=== PATIENT | female | born 1970 | race Caucasian/White ===

== ENCOUNTER 2020-10-02 10:32 | Emergency (ER) | payer MEDICARE, SELFPAY ==
--- NOTE | ~2020-10-02 | XR_ITS ---
EXAMINATION: XR CHEST CLINICAL INFORMATION: Left arm weakness, body tingling since 6:00 AM. COMPARISON: None TECHNIQUE: Portable upright AP x2 views of the chest was obtained. FINDINGS: There are low lung volumes. The lungs are clear. The vascularity is normal. There is no airspace consolidation or groundglass opacity or effusion. The costophrenic sulci are clear. The heart is normal in size. The hilar and mediastinal contours are normal. There is mild dextrocurvature thoracic spine. XR/XR chest 1V IMPRESSION: Low lung volumes. Lungs clear.
--- NOTE | ~2020-10-02 | CT_ITS ---
EXAMINATION: CT ABDOMEN AND PELVIS WITH CONTRAST CLINICAL INFORMATION: Right lower quadrant abdominal pain COMPARISON: None TECHNIQUE: Multidetector volumetric images were obtained from the superior aspect of the liver through the pubic symphysis following administration 85 mL of Omnipaque 350 intravenous contrast. Sagittal and coronal reformatted images were obtained on the technologist's workstation. Oral contrast: No This CT examination was performed using dose optimization techniques as appropriate, variously including the following: *Automated exposure control *Adjustment of mA and/or kV according to patient size (this includes techniques or standardized protocols for targeted exams where dose is matched to indication/reason for exam; i.e. extremities or head) *Use of iterative reconstruction technique DLP: 1256 mGy-cm FINDINGS: LUNG BASES: The visualized lung bases are unremarkable. LIVER, GALLBLADDER, AND BILIARY TREE: The liver is normal in size, shape, and attenuation. No focal hepatic lesion or biliary ductal dilatation is present. Postsurgical changes related to cholecystectomy. PANCREAS: Unremarkable. SPLEEN: Unremarkable. ADRENAL GLANDS: Unremarkable. KIDNEYS AND URETERS: The kidneys are normal in size, shape, and attenuation. No hydronephrosis, hydroureter, or calculi seen. No perinephric stranding. BLADDER: Unremarkable. GASTROINTESTINAL TRACT: The small and large bowel are unremarkable. The appendix is unremarkable. ABDOMINAL WALL: Tiny midline abdominal wall hernia just distal to the umbilicus the hernia sac measuring up to 6 mm contains fat with minimal if any fluid. LYMPH NODES: Normal. VASCULAR: There is mild arterial calcification of the abdominal aorta PELVIC VISCERA: Unremarkable. OSSEOUS STRUCTURES: Degenerative disc change present at the L5-S1 level manifested by vacuum disc phenomena CT/CT abdomen pelvis w con IMPRESSION: No acute abnormality. Appendix normal Cholecystectomy. Tiny midline abdominal wall hernia. Mild calcific atherosclerotic disease.
--- NOTE | ~2020-10-02 | CT_ITS ---
EXAMINATION: CT HEAD WITHOUT CONTRAST CLINICAL INFORMATION: Left arm weakness body tingling. COMPARISON: None TECHNIQUE: Contiguous axial imaging was performed from the skull base to vertex without intravenous administration of contrast. This CT examination was performed using dose optimization techniques as appropriate, variously including the following: *Automated exposure control *Adjustment of mA and/or kV according to patient size (this includes techniques or standardized protocols for targeted exams where dose is matched to indication/reason for exam; i.e. extremities or head) *Use of iterative reconstruction technique DLP: 835 mGy-cm FINDINGS: There is no evidence of acute intracranial hemorrhage or territorial infarction. No abnormal mass effect or midline shift is seen. Saenz to white matter differentiation is well preserved. No extra-axial fluid collections are identified. The ventricles are normal in size. There is no abnormal attenuation within the brain parenchyma. The osseous structures and soft tissues are normal. The mastoid air cells and visualized portions of the paranasal sinuses are well aerated. CT/CT head/brain wo con IMPRESSION: No acute intracranial pathology.
--- NOTE | ~2020-10-02 | CT_ITS ---
EXAMINATION: CT angio head neck CLINICAL INFORMATION: Left upper extremity weakness. COMPARISON: CT scan of the head 10/02/2020. TECHNIQUE: Qa Consultant images were obtained. A CT angiogram of the head and neck was performed in the arterial phase after the intravenous administration of 100 mL Omnipaque 350. Delayed postcontrast images of the head were also obtained. MIP reconstructions were generated in multiple orientations at the acquisition workstation. Multiple three-dimensional surface rendered images and maximum intensity projection images were generated on a dedicated 3-D lab workstation. Arterial stenoses are measured in accordance with NASCET criteria or similar method if applicable. This CT examination was performed using dose optimization techniques as appropriate, including one or more of the following: Automated exposure control, iterative reconstruction, and adjustment of technique factors (mA and/or kVp) according to patient size (this includes techniques or standardized protocols for targeted exams where dose is matched to indication/reason for exam). Total exam dose-length product 3532 mGy-cm FINDINGS: Head: Postcontrast images reveal no abnormal mass or enhancement within the intracranial compartment. No intracranial mass effect or midline shift. Lateral and third ventricles are normal. No hydrocephalus. Saenz-white matter differentiation is preserved and there is no evidence of acute territorial infarct. The calvarium and skull base are intact. Mastoid air cells and middle ear cavities are well aerated. No active paranasal sinus disease. Globes and orbits are symmetric. CT angiogram neck: The aortic arch apex is normal. Origins of the major aortic branches are widely patent. Common carotid arteries and carotid bifurcations are normal. No stenosis of the extracranial internal carotid arteries. The cervical segments of the vertebral arteries as well as their origins are patent. CT angiogram head: There is a small vascular fenestration of the right intradural vertebral artery at the origin of the right posterior inferior cerebellar artery. The intradural vertebral artery segments and basilar artery are otherwise normal. The intracranial internal carotid arteries are widely patent. Anterior, middle, and posterior cerebral artery complexes are normal. No intracranial large vessel occlusion. Other: Soft tissues of the neck including the thyroid gland are normal. Visualized lung apices are clear. CT/CT angio head neck IMPRESSION: Unremarkable CT angiogram of the head and neck.
[2020-10-02 10:41] VITALS: BP 121/78; PULSE 73; RESP 17; TEMP 37.2; O2SAT 100
[2020-10-02 10:54] VITALS: BP 124/78; PULSE 72; RESP 18; TEMP 36.6; O2SAT 96; BMI 52.2
--- NOTE | 2020-10-02 11:06 | ECG_ITS ---
Test Reason : GENERAL MEDICINE Blood Pressure : / mmHG Vent. Rate : 073 BPM Atrial Rate : 073 BPM P-R Int : 170 ms QRS Dur : 082 ms QT Int : 414 ms P-R-T Axes : 026 -04 024 degrees QTc Int : 456 ms Normal sinus rhythm Minimal voltage criteria for LVH, may be normal variant Inferior infarct , age undetermined Abnormal ECG No previous ECGs available Referred By: Sammie Finney Electronically Signed By:MARYELLEN WHEATLEY
--- NOTE | 2020-10-02 11:57 | ED_ITS ---
HPI - Neuro Symptoms/Deficit General Chief Complaint: General Medical Stated Complaint: RIGHT SIDED TINGLING Time Seen by Provider: 10/02/20 10:41 Source: patient and EMS Mode of arrival: EMS Limitations: other ( poor historian) History of Present Illness HPI Narrative: 49-year-old female with a past medical history of migraine headaches, transverse myelitis, anxiety, depression, PTSD, personality disorder, celiac disease and left-sided weakness presenting to the ED with complaints of sudden onset of left upper extremity weakness with entire body tingling that started at approximately 06:00 when she woke up. She reports that her left leg weakness has improved since 06:00 this morning although now she has left upper extremity weakness that is new. She is also complaining of right lower quadrant abdominal pain for the past 2 days. Patient denies any fevers, head injury, falls, dizziness, headaches, change in vision, neck pain/stiffness, nausea /vomiting, jaw pain, chest pain, cough,shortness of breath, dyspnea exertion, orthopnea, palpitations, abdominal pain, back pain, lower extremity edema or weakness, calf tenderness, dysuria, hematuria, diarrhea, constipation, black or bloody stools or any other symptoms complaints or concerns at this time. She denies being on any blood thinners. Onset (ago): hour(s) ( 5 hours prior to arrival at 06:00) Location: left arm History of same: No Severity: moderate Quality: weak, tingling and constant Relieving factors: none Exacerbating factors: none Context: sudden onset On Anticoagulants: No Associated symptoms: other ( tingling to the entire body) Treatments Prior to Arrival: none Related Data Previous Rx's Medication Instructions Recorded acetaminophen [Tylenol Extra 1,000 mg PO QID PRN #14 tab 10/02/20 Strength] ferrous sulfate 325 mg PO DAILY #30 tab 10/02/20 ibuprofen 400 mg PO Q6H PRN #14 tab 10/02/20 Allergies Allergy/AdvReac Type Severity Reaction Status Date / Time cephalexin [From Keflex] Allergy Rash Verified 10/02/20 10:54 droperidol Allergy Anaphylaxis Verified 10/02/20 10:54 ketorolac [From Toradol] Allergy Itching Verified 10/02/20 10:54 Penicillins Allergy Rash Verified 10/02/20 10:54 Sulfa (Sulfonamide Allergy Rash Verified 10/02/20 10:54 Antibiotics) Review of Systems Review of Systems: Constitutional : No Fever, No Chills, No Night Sweats, No Fatigue, No Malaise ENT/Mouth : No Ear Pain, No Nasal Congestion, No Sinus Pain, No sore throat, No Rhinorrhea Eyes: No Eye Pain, No Swelling, No Redness, No Foreign Body, No Discharge, No Vision Changes Cardiovascular : No Chest Pain, No SOB, No Dyspnea on Exertion, No Orthopnea, No Palpitations Respiratory : No Cough, No Sputum, No Wheezing, No Dyspnea Gastrointestinal : positive right lower quadrant abdominal pain, No Nausea, No Vomiting, No Diarrhea, No Constipation, No Hematochezia, No Melena Genitourinary : No Dysuria, No Urinary Frequency, No Urinary Incontinence, No Urgency, No Flank Pain Musculoskeletal : No joint pain, No Myalgias Skin : No lacerations Neuro : positive left upper arm Focal weakness, tingling to the entire body, No Numbness, No Loss of Consciousness, No Dizziness, No Headache Yes all other systems are reviewed and are negative [facility] Past Medical History Attestation statement: The following information was validated with the patient. Medical History Celiac disease Colitis Left-sided weakness Surgical History History of cholecystectomy Social History Social History Alcohol intake: never Patient Tobacco Use Status: Never used Tobacco Use of substances other than those prescribed or required for medical reasons: No Advance Directives: Yes Advance Directives Information Provided: Yes Advance Directives on File: No Patient : No Physical Exam Vital Signs: Vital Signs: Last Vital Signs Temp 97.8 F 10/02/20 15:43 Pulse 73 10/02/20 15:43 Resp 17 10/02/20 15:43 BP 127/75 10/02/20 15:43 Pulse Ox 96 10/02/20 15:43 Body Mass Index 52.2 Vital signs have been reviewed as normal and appeared to be correct. Blood pressure normal. Heart rate normal. Respiration rate normal. Temperature normal. Oxygen saturation normal. Appearance: Alert. Oriented X3. No acute distress. Head: Normal external exam. Normocephalic. Atraumatic. Able to rotate head bilaterally. Eyes: PERRLA. EOMI. No nystagmus noted. Conjunctiva and sclera normal. Eyelids normal. Corneal reflex normal. ENT: EAC normal. TM's Normal. Hearing normal. Pharynx normal. Uvula midline. tongue midline. Moist mucous membranes. No trismus noted. No drooling noted. No muffled voice noted. No nystagmus noted. Neck: Normal inspection. Neck supple. FROM. No adenopathy. Trachea midline. Thyroid Normal. No meningeal signs. No neck mass noted. CVS: Normal heart rate and rhythm. Heart sound normal. No murmurs noted. Pulses normal throughout. Respiratory: No respiratory distress. Painless inspiration. Breath sounds normal. No wheezes/rales/rhonchi noted. Chest nontender. No accessory muscle usage noted or decreased air movement noted. Abdomen: Soft and mild tenderness to palpation to right lower quadrant. Bowel sounds normal in all 4 quadrants. No distention noted. No organomegaly noted. No visible injury noted. Back: No CVA tenderness. Full range of motion noted. Skin: Skin warm and dry. Normal skin color. Normal skin turgor. No rashes/lesions/lacerations noted. Extremities: No lower extremity edema. Extremities exhibit normal range of motion. Extremities nontender. Able to shrug shoulders bilaterally and keep up against resistance. Neuro: Oriented X 3. when myself and the nurse speak to the patient she is moving her left upper extremity without any difficulties although when I test the patient's strength she reports she has no strength in her left upper extremity. Although hand drop overhead . face multiple times. Therefore no actual motor deficit. No sensory deficit. Reflexes normal. Moving all extremities. No focal motor deficits. Cranial nerves II-XI intact bilaterally. Facial strength normal. Normal cognition. Speech normal. Gait normal And patient uses her left arm to get up from the bed by herself. Strength 5/5 throughout. No pronator drift. No tremor noted. No fasciculations noted. No rigi dity noted. Muscle tone normal throughout. No asterixis noted. [id number] test normal. Heel to ballard test normal. Tandem gait normal. Does not sway with eyes open. Romberg test negative. Rapid alternating movement upper extremity normal. Rapid alternating movement lower extremity normal. Hand drop from overhead Misses face. NIHSS score 0. Course Course Course Narrative: 11:10am - 49-year-old female with a past medical history of migraine headaches, transverse myelitis, anxiety, depression, PTSD, personality disorder, celiac disease and left-sided weakness presenting to the ED with complaints of sudden onset of left upper extremity weakness with entire body tingling that started at approximately 06:00 when she woke up. She reports that her left leg weakness has improved since 06:00 this morning although now she has left upper extremity weakness that is new. She is also complaining of right lower quadrant abdominal pain for the past 2 days. - per EMS patient was able to get up and onto the stretcher moving all extremities with a normal steady gait no focal neural deficits were noted. On my exam patient is alert and oriented x3. Not in any acute distress. During my exam she was not moving her left upper extremity although when I place her hand over her face she misses her face multiple times. She was also able to use her left arm to get up from the bed to ambulate and she had a normal steady gait. She also moves her left upper extremity when I am speaking to her although she will not move it when I do my neuro exam to test for strength. Otherwise she is moving all other extremities. She has a normal steady gait. Due to her being a poor historian and her exam being inconsistent she is not a tPA candidate as she has non disabling symptoms and her symptoms started 4 hours prior to arrival. Plan: Labs, CT scan of brain, CT angio of head and neck, CT scan of abdomen and pelvis with IV contrast, UA, chest x-ray, EKG and re-evaluate. Reevaluation(s) Reevaluation #1: - patient with mild anemia I asked her if she could possibly be bleeding rectally and she declined this then I asked if I could do a digital exam for stool stool Occult Patient refused. Otherwise all other labs were within normal limits. UA within normal limits no evidence of UTI. Patient negative for all drugs. ETOH level negative. COVID swab negative. CT scan of brain without contrast negative for any acute processes. CTA of head and neck negative for any acute processes. CT scan abdomen pelvis with IV contrast negative for any acute processes. - Patient is moving all extremities and is ambulating without any assistance. Will DC home with instructions return if any new or worsening symptoms to follow up with primary care provider. Time: 16:34 MDM - Neuro Symptoms/Deficit Medical Records Attestation: I reviewed the patient's medical records. Lab Data Attestation: I reviewed the patient's lab results. Result diagrams: 10/02/20 13:01 10/02/20 13:01 Labs: Lab Results 10/02/20 10/02/20 10/02/20 Range/Units 12:50 12:50 12:50 WBC (4.8-10.8) X10*3/uL RBC (4.20-5.50) X10*6/uL Hgb (12.0-16.0) g/dl Hct (37-47) % MCV (80-98) fL MCH (27.0-33.0) pg MCHC (31.0-35.0) g/dl RDW (11.0-16.0) % Plt Count (160-400) X10*3/uL MPV (9.4-12.3) fL Immature Gran % (Auto) (0.0-0.4) % Neut % (Auto) (45-73) % Lymph % (Auto) (20-40) % [place] % (Auto) (2-11) % Eos % (Auto) (0-4) % Baso % (Auto) (0-2) % Lymph # (Auto) (1.2-4.9) X10*3/uL [place] # (Auto) (0.1-1.2) X10*3/uL Eos # (Auto) (0.0-0.4) X10*3/uL Baso # (Auto) (0.0-0.2) X10*3/uL Abs Immat Gran (auto) (0.00-0.03) X10*3/uL Absolute Neuts (auto) (2.0-8.3) X10*3/uL Absolute Nucleated RBC (0.0-0.012) X10*3/uL Nucleated RBC % (auto) (0.0-0.2) /100WBC PT (9.9-13.0) SEC INR (0.9-1.1) APTT (24.1-38.0) SEC Sodium (135-145) mmol/L Potassium (3.3-5.1) mmol/L Chloride (96-108) mmol/L Carbon Dioxide (22-29) mmol/L Anion Gap (12-20) BUN (9-16) mg/dL Creatinine (0.5-1.4) mg/dL Estim Creat Clear Calc Estimated GFR Random Glucose (60-115) mg/dL Calcium (8.4-10.2) mg/dL Magnesium (1.6-2.6) mg/dL Total Bilirubin (0.0-1.0) mg/dL AST (5-31) U/L ALT (0-31) U/L Alkaline Phosphatase (39-117) U/L Troponin I High Sens (<3.5-17.0) ng/L B-Natriuretic Peptide (<100) pg/mL Total Protein (6.5-8.0) g/dL Albumin (3.5-5.0) g/dL Urine Color YELLOW Urine Appearance CLEAR Urine pH 6.0 (5.0-8.0) Ur Specific [place] <= 1.005 (1.005-1.025) Urine Protein NEG (NEG-TRACE) MG/DL Urine Glucose (UA) NEG (NEG) MG/DL Urine Ketones NEG (NEG) MG/DL Urine Blood NEG (NEG) Urine Nitrite NEG (NEG) Ur Leukocyte Esterase NEG (NEG) Urine Opiates Screen Not Detected (Not Detect) Ur Barbiturates Screen Not Detected (Not Detect) Ur Phencyclidine Scrn Not Detected (Not Detect) Ur Amphetamines Screen Not Detected (Not Detect) U Benzodiazepines Scrn Not Detected (Not Detect) Urine Cocaine Screen Not Detected (Not Detect) U Marijuana (THC) Screen Not Detected (Not Detect) Ethyl Alcohol mg/dL COVID-19 (CELINA) Negative (Negative) COVID-19 Clin Com See Note 10/02/20 10/02/20 10/02/20 Range/Units 13:01 13:01 13:01 WBC 5.9 (4.8-10.8) X10*3/uL RBC 3.55 L (4.20-5.50) X10*6/uL Hgb 10.4 L (12.0-16.0) g/dl Hct 36.0 L (37-47) % MCV 101.4 H (80-98) fL MCH 29.3 (27.0-33.0) pg MCHC 28.9 L (31.0-35.0) g/dl RDW 13.9 (11.0-16.0) % Plt Count 286 (160-400) X10*3/uL MPV 10.0 (9.4-12.3) fL Immature Gran % (Auto) 0.8 H (0.0-0.4) % Neut % (Auto) 60.6 (45-73) % Lymph % (Auto) 27.2 (20-40) % [place] % (Auto) 6.9 (2-11) % Eos % (Auto) 3.7 (0-4) % Baso % (Auto) 0.8 (0-2) % Lymph # (Auto) 1.6 (1.2-4.9) X10*3/uL [place] # (Auto) 0.4 (0.1-1.2) X10*3/uL Eos # (Auto) 0.2 (0.0-0.4) X10*3/uL Baso # (Auto) 0.1 (0.0-0.2) X10*3/uL Abs Immat Gran (auto) 0.05 H (0.00-0.03) X10*3/uL Absolute Neuts (auto) 3.6 (2.0-8.3) X10*3/uL Absolute Nucleated RBC 0.000 (0.0-0.012) X10*3/uL Nucleated RBC % (auto) 0.0 (0.0-0.2) /100WBC PT 11.7 (9.9-13.0) SEC INR 1.0 (0.9-1.1) APTT 39.0 H (24.1-38.0) SEC Sodium 141 (135-145) mmol/L Potassium 3.9 (3.3-5.1) mmol/L Chloride 110 H (96-108) mmol/L Carbon Dioxide 23 (22-29) mmol/L Anion Gap 12 (12-20) BUN 15 (9-16) mg/dL Creatinine 1.14 (0.5-1.4) mg/dL Estim Creat Clear Calc 60.9 Estimated GFR 51 Random Glucose 101 (60-115) mg/dL Calcium 8.9 (8.4-10.2) mg/dL Magnesium 2.3 (1.6-2.6) mg/dL Total Bilirubin 0.4 (0.0-1.0) mg/dL AST 16 (5-31) U/L ALT 15 (0-31) U/L Alkaline Phosphatase 84 (39-117) U/L Troponin I High Sens (<3.5-17.0) ng/L B-Natriuretic Peptide (<100) pg/mL Total Protein 6.7 (6.5-8.0) g/dL Albumin 4.0 (3.5-5.0) g/dL Urine Color Urine Appearance Urine pH (5.0-8.0) Ur Specific [place] (1.005-1.025) Urine Protein (NEG-TRACE) MG/DL Urine Glucose (UA) (NEG) MG/DL Urine Ketones (NEG) MG/DL Urine Blood (NEG) Urine Nitrite (NEG) Ur Leukocyte Esterase (NEG) Urine Opiates Screen (Not Detect) Ur Barbiturates Screen (Not Detect) Ur Phencyclidine Scrn (Not Detect) Ur Amphetamines Screen (Not Detect) U Benzodiazepines Scrn (Not Detect) Urine Cocaine Screen (Not Detect) U Marijuana (THC) Screen (Not Detect) Ethyl Alcohol mg/dL COVID-19 (CELINA) (Negative) COVID-19 Clin Com 10/02/20 10/02/20 10/02/20 Range/Units 13:01 13:01 13:01 WBC (4.8-10.8) X10*3/uL RBC (4.20-5.50) X10*6/uL Hgb (12.0-16.0) g/dl Hct (37-47) % MCV (80-98) fL MCH (27.0-33.0) pg MCHC (31.0-35.0) g/dl RDW (11.0-16.0) % Plt Count (160-400) X10*3/uL MPV (9.4-12.3) fL Immature Gran % (Auto) (0.0-0.4) % Neut % (Auto) (45-73) % Lymph % (Auto) (20-40) % [place] % (Auto) (2-11) % Eos % (Auto) (0-4) % Baso % (Auto) (0-2) % Lymph # (Auto) (1.2-4.9) X10*3/uL [place] # (Auto) (0.1-1.2) X10*3/uL Eos # (Auto) (0.0-0.4) X10*3/uL Baso # (Auto) (0.0-0.2) X10*3/uL Abs Immat Gran (auto) (0.00-0.03) X10*3/uL Absolute Neuts (auto) (2.0-8.3) X10*3/uL Absolute Nucleated RBC (0.0-0.012) X10*3/uL Nucleated RBC % (auto) (0.0-0.2) /100WBC PT (9.9-13.0) SEC INR (0.9-1.1) APTT (24.1-38.0) SEC Sodium (135-145) mmol/L Potassium (3.3-5.1) mmol/L Chloride (96-108) mmol/L Carbon Dioxide (22-29) mmol/L Anion Gap (12-20) BUN (9-16) mg/dL Creatinine (0.5-1.4) mg/dL Estim Creat Clear Calc Estimated GFR Random Glucose (60-115) mg/dL Calcium (8.4-10.2) mg/dL Magnesium (1.6-2.6) mg/dL Total Bilirubin (0.0-1.0) mg/dL AST (5-31) U/L ALT (0-31) U/L Alkaline Phosphatase (39-117) U/L Troponin I High Sens < 3.5 (<3.5-17.0) ng/L B-Natriuretic Peptide 55 (<100) pg/mL Total Protein (6.5-8.0) g/dL Albumin (3.5-5.0) g/dL Urine Color Urine Appearance Urine pH (5.0-8.0) Ur Specific [place] (1.005-1.025) Urine Protein (NEG-TRACE) MG/DL Urine Glucose (UA) (NEG) MG/DL Urine Ketones (NEG) MG/DL Urine Blood (NEG) Urine Nitrite (NEG) Ur Leukocyte Esterase (NEG) Urine Opiates Screen (Not Detect) Ur Barbiturates Screen (Not Detect) Ur Phencyclidine Scrn (Not Detect) Ur Amphetamines Screen (Not Detect) U Benzodiazepines Scrn (Not Detect) Urine Cocaine Screen (Not Detect) U Marijuana (THC) Screen (Not Detect) Ethyl Alcohol < 10 mg/dL COVID-19 (CELINA) (Negative) COVID-19 Clin Com Imaging Data Chest x-ray: Attestation: I personally reviewed and interpreted this imaging study as follows: CT scan of head /CT angio head and neck / CT scan abdomen pelvis IV contrast: Attestation: I personally reviewed and interpreted this imaging study as follows: Radiologist's impression: FINDINGS: Head: Postcontrast images reveal no abnormal mass or enhancement within the intracranial compartment. No intracranial mass effect or midline shift. Lateral and third ventricles are normal. No hydrocephalus. Saenz-white matter differentiation is preserved and there is no evidence of acute territorial infarct. The calvarium and skull base are intact. Mastoid air cells and middle ear cavities are well aerated. No active paranasal sinus disease. Globes and orbits are symmetric. CT angiogram neck: The aortic arch apex is normal. Origins of the major aortic branches are widely patent. Common carotid arteries and carotid bifurcations are normal. No stenosis of the extracranial internal carotid arteries. The cervical segments of the vertebral arteries as well as their origins are patent. CT angiogram head: There is a small vascular fenestration of the right intradural vertebral artery at the origin of the right posterior inferior cerebellar artery. The intradural vertebral artery segments and basilar artery are otherwise normal. The intracranial internal carotid arteries are widely patent. Anterior, middle, and posterior cerebral artery complexes are normal. No intracranial large vessel occlusion. Other: Soft tissues of the neck including the thyroid gland are normal. Visualized lung apices are clear. CT/CT angio head neck IMPRESSION: Unremarkable CT angiogram of the head and neck. FINDINGS: LUNG BASES: The visualized lung bases are unremarkable. LIVER, GALLBLADDER, AND BILIARY TREE: The liver is normal in size, shape, and attenuation. No focal hepatic lesion or biliary ductal dilatation is present. Postsurgical changes related to cholecystectomy. PANCREAS: Unremarkable. SPLEEN: Unremarkable. ADRENAL GLANDS: Unremarkable. KIDNEYS AND URETERS: The kidneys are normal in size, shape, and attenuation. No hydronephrosis, hydroureter, or calculi seen. No perinephric stranding. BLADDER: Unremarkable. GASTROINTESTINAL TRACT: The small and large bowel are unremarkable. The appendix is unremarkable. ABDOMINAL WALL: Tiny midline abdominal wall hernia just distal to the umbilicus the hernia sac measuring up to 6 mm contains fat with minimal if any fluid. LYMPH NODES: Normal. VASCULAR: There is mild arterial calcification of the abdominal aorta PELVIC VISCERA: Unremarkable. OSSEOUS STRUCTURES: Degenerative disc change present at the L5-S1 level manifested by vacuum disc phenomena CT/CT abdomen pelvis w con IMPRESSION: No acute abnormality. Appendix normal Cholecystectomy. Tiny midline abdominal wall hernia. Mild calcific atherosclerotic disease. ECG Data Attestation: I personally reviewed and interpreted this ECG as follows: NIH Stroke Scale Internal: Initial- Upon Arrival Time: 11:10 Level of Consciousness: Alert Level of Consciousness Questions: Answers both questions correctly Level of Consciousness Commands: Performs both tasks correctly Best Gaze: Normal Visual: No visual loss Facial Palsy: Normal Motor Arm (Right): No drift Motor Arm (Left): No drift Motor Leg (Right): No drift Motor Leg (Left): No drift Limb Ataxia: Absent Sensory: Normal Best Language: No aphasia Dysarthia: Normal Extinction and Inattention: No abnormality Score: 0 Critical Care Time Critical Care Time Critical Care Time: Yes Total Critical Care Time: 60 Attestation: I personally attest to this time spent taking care of the patient Discharge Plan Discharge Clinical Impression: Abdominal pain, Migraine headache, Anemia Patient Disposition: Home, Self-Care Instructions: Migraine Headache (ED), Abdominal Pain (ED), Anemia (ED) Prescriptions: New acetaminophen [Tylenol Extra Strength] 500 mg tablet 1,000 mg PO QID PRN (Reason: fever or pain) Qty: 14 RF: 0 ibuprofen 400 mg tablet 400 mg PO Q6H PRN (Reason: pain) Qty: 14 RF: 0 ferrous sulfate 325 mg (65 mg iron) tablet 325 mg PO DAILY Qty: 30 RF: 0 Referrals: Physician,Unknown [Primary Care Provider] - 2 days (your pcp) Print Language: Turkmen
[2020-10-02 13:03] LABS: Glucose Urine UA NEG (NEG); Leukocyte Esterase Urine NEG (NEG); Nitrite Urine NEG (NEG); Specific Gravity - Urine <= 1.005 (1.005-1.025); Urine Blood NEG (NEG); Urine Ketones NEG (NEG); Urine Protein NEG (NEG-TRACE)
[2020-10-02 13:06] LABS: Appearance Urine CLEAR; Color Urine YELLOW
[2020-10-02 13:15] LABS: COVID-19 Test Negative (Negative); IDNOW Serial# 9DD0AD1C
--- NOTE | 2020-10-02 13:17 | PC.NURSE ---
iv and labs obtained via ultrasound guide
[2020-10-02 13:18] LABS: MANUAL DIFF FLAG NO
--- NOTE | 2020-10-02 13:18 | PC.NURSE ---
pt to have xray
[2020-10-02 13:21] LABS: Basophils Absolute Auto 0.1 X10*3/uL (0.0-0.2); Basophils Percent Auto 0.8 % (0-2); Eosinophils Absolute Auto 0.2 X10*3/uL (0.0-0.4); Eosinophils Percent Auto 3.7 % (0-4); Hemoglobin 10.4 g/dl (12.0-16.0); Imm Gran Abs Auto 0.05 X10*3/uL (0.00-0.03); Imm Gran Pct Auto 0.8 % (0.0-0.4); Lymphocytes Absolute Auto 1.6 X10*3/uL (1.2-4.9); Lymphocytes Percent Auto 27.2 % (20-40); Mean Corpuscular HGB Conc 28.9 g/dl (31.0-35.0); Mean Corpuscular Hemoglobin 29.3 pg (27.0-33.0); Mean Corpuscular Volume 101.4 fL (80-98); Monocytes Absolute Auto 0.4 X10*3/uL (0.1-1.2); Monocytes Percent Auto 6.9 % (2-11); Neutrophils Absolute Auto 3.6 X10*3/uL (2.0-8.3); Neutrophils Percent Auto 60.6 % (45-73); Platelet Count 286 X10*3/uL (160-400); Red Blood Count 3.55 X10*6/uL (4.20-5.50); Red Cell Distribution Width 13.9 % (11.0-16.0); White Blood Count 5.9 X10*3/uL (4.8-10.8)
--- NOTE | 2020-10-02 13:25 | PC.NURSE ---
patient a&ox3, since patients arrival patient had c/o inability to move left arm, however while speaking with this nurse and the provider the patient would move arm without assistance, patient also stated that she has facial droop although when performing neuro exam no facial droop was noted, pt passed swallow eval. pt now has iv access that was obtained via us guided- and will have a ct scan as a precaution, will continue to monitor.
[2020-10-02 13:27] LABS: Prothrombin Time 11.7 SEC (9.9-13.0)
[2020-10-02 13:29] LABS: Amphetamine Screen Urine Not Detected (Not Detect); Barbiturates, Urine Not Detected (Not Detect); Benzodiazepines Screen Urine Not Detected (Not Detect); Cannabinoid Screen Urine Not Detected (Not Detect); Cocaine Screen Urine Not Detected (Not Detect); Opiate Screen Urine Not Detected (Not Detect)
[2020-10-02 13:36] LABS: Phencyclidine Screen Urine Not Detected (Not Detect)
[2020-10-02 13:42] LABS: Ethanol < 10 mg/dL
[2020-10-02 13:46] LABS: Alanine Aminotransferase 15 U/L (0-31); Alkaline Phosphatase 84 U/L (39-117); Anion Gap 12 (12-20); Aspartate Amino Transferase 16 U/L (5-31); Bilirubin Total 0.4 mg/dL (0.0-1.0); Blood Urea Nitrogen 15 mg/dL (9-16); Calcium 8.9 mg/dL (8.4-10.2); Carbon Dioxide 23 mmol/L (22-29); Chloride 110 mmol/L (96-108); Creatinine Clr Calc Pharmacy 60.9; Estimated Glomerular Filt Rate 51; Glucose Random 101 mg/dL (60-115); Magnesium 2.3 mg/dL (1.6-2.6); Potassium 3.9 mmol/L (3.3-5.1); Sodium 141 mmol/L (135-145); Total Protein 6.7 g/dL (6.5-8.0)
[2020-10-02 13:47] LABS: B Type Natriuretic Peptide 55 pg/mL (<100); Troponin-I High Sensitivity < 3.5 ng/L (<3.5-17.0)
[2020-10-02 13:49] VITALS: BP 123/71; PULSE 73; RESP 18; TEMP 36.7; O2SAT 95
--- NOTE | 2020-10-02 13:51 | PC.NURSE ---
pt c/o rlq abd pain 01/06, immediately after c/o pain patient requesting something to eat and drink, will notify provider and see if she can have po at this time.
[2020-10-02 15:43] VITALS: BP 127/75; PULSE 73; RESP 17; TEMP 36.6; O2SAT 96
--- NOTE | 2020-10-02 15:44 | PC.NURSE ---
patient sleeping, wakes to verbal stimulus, vss, rn cardiac nsr 70s, c/o rt abd pain, will continue to monitor.
[2020-10-02] MEDS: iohexoL 350 MG/ML 100 ML INFUS..BTL IV (15:57)
[2020-10-02] MEDS: Acetaminophen 325 MG TABLET 650 MG PO (16:49)
== END 2020-10-02 16:53 | disposition home or self-care (01) ==
PROVIDERS: Physician Assistant Medical; Emergency Provider Emergency Medicine
DX: R10.31 Right lower quadrant pain (principal); G43.909 Migraine, unspecified, not intractable, without status migrainosus; D64.9 Anemia, unspecified; R53.1 Weakness; R20.2 Paresthesia of skin; Z20.822 Contact with and (suspected) exposure to COVID-19
CPT/HCPCS: 36415; 70450; 70496; 70498; 71045; 74177; 80053; 80307; 81003; 82077; 83735; 83880; 84484; 85025; 85610; 85730; 87635; 93005; 99284; 99291; Q9967

== ENCOUNTER 2021-09-29 17:35 | Emergency (ER) | payer MEDICARE, SELFPAY | END 2021-09-29 18:30 | disposition left against medical advice (07) | PROVIDERS: Emergency Provider Emergency Medicine; PCP Internal Medicine | DX: G43.909 Migraine, unspecified, not intractable, without status migrainosus (principal) ==

== ENCOUNTER 2021-10-02 17:37 | Emergency (ER) | payer MEDICARE, SELFPAY ==
--- NOTE | ~2021-10-02 | XR_ITS ---
EXAMINATION: XR CHEST CLINICAL INFORMATION: Dyspnea COMPARISON: Chest x-ray 10/02/2020 TECHNIQUE: Frontal view of the chest was obtained. FINDINGS: Cardiac silhouette is normal in size. The lungs are mildly hypoinflated. There is asymmetric elevation of right hemidiaphragm. There is no lobar consolidation. No pleural effusion or pneumothorax. XR/XR chest 1V IMPRESSION: Hypoinflated lungs without acute pulmonary pathology.
[2021-10-02 17:44] VITALS: BP 135/80; PULSE 107; RESP 28; TEMP 36.7; O2SAT 97; BMI 45.3
[2021-10-02 18:53] VITALS: BP 139/95; PULSE 101; RESP 50; O2SAT 96
--- NOTE | 2021-10-02 19:59 | ECG_ITS ---
Test Reason : DYSPENA Blood Pressure : / mmHG Vent. Rate : 085 BPM Atrial Rate : 085 BPM P-R Int : 154 ms QRS Dur : 078 ms QT Int : 386 ms P-R-T Axes : 026 000 033 degrees QTc Int : 459 ms Normal sinus rhythm Minimal voltage criteria for LVH, may be normal variant ( R in aVL ) Inferior infarct (cited on or before 02-OCT-2020) Abnormal ECG When compared with ECG of 02-OCT-2020 12:53, No significant change was found Referred By: Lorraine Bob Electronically Signed By:Elpidio So
--- NOTE | 2021-10-02 20:01 | ED_ITS ---
HPI - SOB/Dyspnea General Chief Complaint: Dyspnea Stated Complaint: short of breath, migraine for a month Source: patient Mode of arrival: ambulatory Limitations: no limitations History of Present Illness HPI Narrative: 50-year-old female presents with shortness of breath for 5 days and a intractable migraine for approximately a month. Patient does have a history of asthma and COPD, she stated that she used for nebulizers today with poor effect. She is speaking in short phrases, and is tachypneic at 28 breaths per minute. MD elicited complaint: shortness of breath Pertinent past history: COPD and asthma Onset (ago): day(s) (5 shortness breath) Timing: constant Severity: moderate Exacerbating factors: exertion, coughing and talking Relieving factors: nothing Known history of: COPD and asthma Treatment prior to arrival: bronchodilator Related Data Previous Rx's Medication Instructions Recorded acetaminophen 500 mg tablet 1,000 mg PO QID PRN fever or pain 10/02/20 (Tylenol Extra Strength) #14 tabs ferrous sulfate 325 mg (65 mg 325 mg PO DAILY Iron deficiency 10/02/20 iron) tablet anemia #30 tabs ibuprofen 400 mg tablet 400 mg PO Q6H PRN pain #14 tabs 10/02/20 Allergies Allergy/AdvReac Type Severity Reaction Status Date / Time cephalexin [From Keflex] Allergy Rash Verified 10/02/21 17:43 droperidol Allergy Anaphylaxis Verified 10/02/21 17:43 ketorolac [From Toradol] Allergy Itching Verified 09/29/21 18:28 Penicillins Allergy Rash Verified 10/02/21 17:43 Sulfa (Sulfonamide Allergy Rash Verified 10/02/21 17:43 Antibiotics) Review of Systems Review of Systems: Constitutional: No Fever, No Chills ENT/Mouth: No Ear Pain, No Hoarseness, No sore throat Eyes: No Eye Pain, No Swelling, No Redness, No Foreign Body Cardiovascular: No Chest Pain, positive SOB Respiratory: No Cough, No Dyspnea Gastrointestinal: No Nausea, No Vomiting, No Diarrhea, No abdominal Pain Genitourinary: No Dysuria, No Hematuria Musculoskeletal: No joint pain, No Myalgias, No Joint Swelling Skin: No Skin lacerations, No rash Neuro: No Weakness, No Numbness, No Paresthesias, No Loss of Consciousness, No Dizziness, positive Headache Psych: No Anxiety/Panic, No Depression Heme/Lymph: no easy bruising, no Lymphadenopathy Endocrine: No Polyuria, No Polydipsia Yes all other systems are reviewed and are negative [facility] Past Medical History Attestation statement: The following information was validated with the patient. Source: old records reviewed Medical History Celiac disease Colitis Left-sided weakness Surgical History History of cholecystectomy Social History Social History Alcohol intake: never Patient Tobacco Use Status: Never used Tobacco Use of substances other than those prescribed or required for medical reasons: No Advance Directives: No Advance Directives Information Provided: Yes Physical Exam Vital Signs: Vital Signs: Last Vital Signs Temp 98.3 F 10/02/21 20:29 Pulse 87 10/02/21 20:48 Resp 18 10/02/21 20:48 BP 134/86 10/02/21 20:29 Pulse Ox 96 10/02/21 20:29 O2 Del Method 10/02/21 20:29 BMI result Body Mass Index 45.3 Appearance: Alert. Oriented X3. Mild distress. Eyes: Pupils equal, round and reactive to light. Sclera nonicteric. ENT: Pharynx normal. Neck: Normal inspection. Neck supple. CVS: Normal heart rate and rhythm. Pulses normal. Respiratory: Tachypneic. Inspiratory and expiratory wheezing noted throughout both lungs. Abdomen: Soft and nontender. Skin: Skin warm and dry. Normal skin color. Normal skin turgor. Extremities: No lower extremity edema. Gait balanced and coordinated. Neuro: No motor deficit. No sensory deficit. Cranial nerves 2-12 intact. Course Course Course Narrative: 50-year-old female presents 5 days of shortness of breath, and 1 month of intractable headache. She does see a headache specialist, stated that her medications that she took for that today did not work. She has dihydr oergotamine prescription that was ineffective. She has not lost balance, has symptoms indicating cauda equina, changes in vision, fevers, chills, or auditory visual hallucinations. Lung sounds have expiratory and inspiratory wheezing throughout. Plan is for albuterol, Solu-Medrol, Reglan, Benadryl, 1 L of fluids, and sumatriptan. Chest x-rays are negative, shows hyperinflation consistent with asthma COPD. EKG is normal sinus with minimal voltage criteria for LVH consistent with COPD. CBC and Chem 7 are otherwise unremarkable. No acute findings. COVID is negative. Respirations are even unlabored improved from 28 to 18, 96% on room air. Heart rate 87. Plan of care is to have patient follow-up primary care provider and to follow up with headache specialist. patient verbalized understanding of and agrees to plan of care discharge home MDM - SOB/Dyspnea Differential Diagnosis Differential diagnosis: Likely asthma with exacerbation and pleural effusion Medical Records Attestation: I reviewed the patient's medical records. Lab Data Attestation: I reviewed the patient's lab results. Result diagrams: 10/02/21 21:09 10/02/21 21:09 Labs: Lab Results 10/02/21 10/02/21 10/02/21 Range/Units 20:17 21:09 21:09 WBC 9.4 (4.8-10.8) X10*3/uL RBC 4.02 L (4.20-5.50) X10*6/uL Hgb 12.4 (12.0-16.0) g/dl Hct 40.1 (37.0-47.0) % MCV 99.8 H (80.0-98.0) fL MCH 30.8 (27.0-33.0) pg MCHC 30.9 L (31.0-35.0) g/dl RDW 14.3 (11.0-16.0) % Plt Count 235 (160-400) X10*3/uL MPV 10.0 (9.4-12.3) fL Immature Gran % (Auto) 1.5 H (0.0-0.4) % Neut % (Auto) 66.0 (45-73) % Lymph % (Auto) 24.4 (20-40) % [place] % (Auto) 5.1 (2-11) % Eos % (Auto) 2.7 (0-4) % Baso % (Auto) 0.3 (0-2) % Lymph # (Auto) 2.3 (1.2-4.9) X10*3/uL [place] # (Auto) 0.5 (0.1-1.2) X10*3/uL Eos # (Auto) 0.3 (0.0-0.4) X10*3/uL Baso # (Auto) 0.0 (0.0-0.2) X10*3/uL Abs Immat Gran (auto) 0.14 H (0.00-0.03) X10*3/uL Absolute Neuts (auto) 6.2 (2.0-8.3) x10*3/uL Absolute Nucleated RBC 0.000 (0.0-0.012) X10*3/uL Nucleated RBC % (auto) 0.0 (0.0-0.2) /100WBC Sodium 140 (135-145) mmol/L Potassium 3.9 (3.3-5.1) mmol/L Chloride 109 H (96-108) mmol/L Carbon Dioxide 22 (22-29) mmol/L Anion Gap 13 (12-20) BUN 20 H (9-16) mg/dL Creatinine 1.14 (0.5-1.4) mg/dL Estim Creat Clear Calc 55.1 Estimated GFR 51 Random Glucose 99 (60-115) mg/dL Calcium 8.9 (8.4-10.2) mg/dL Troponin I High Sens (<3.5-17.0) ng/L COVID-19 (CELINA) Negative (Negative) COVID-19 Clin Com See Note 10/02/21 Range/Units 21:09 WBC (4.8-10.8) X10*3/uL RBC (4.20-5.50) X10*6/uL Hgb (12.0-16.0) g/dl Hct (37.0-47.0) % MCV (80.0-98.0) fL MCH (27.0-33.0) pg MCHC (31.0-35.0) g/dl RDW (11.0-16.0) % Plt Count (160-400) X10*3/uL MPV (9.4-12.3) fL Immature Gran % (Auto) (0.0-0.4) % Neut % (Auto) (45-73) % Lymph % (Auto) (20-40) % [place] % (Auto) (2-11) % Eos % (Auto) (0-4) % Baso % (Auto) (0-2) % Lymph # (Auto) (1.2-4.9) X10*3/uL [place] # (Auto) (0.1-1.2) X10*3/uL Eos # (Auto) (0.0-0.4) X10*3/uL Baso # (Auto) (0.0-0.2) X10*3/uL Abs Immat Gran (auto) (0.00-0.03) X10*3/uL Absolute Neuts (auto) (2.0-8.3) x10*3/uL Absolute Nucleated RBC (0.0-0.012) X10*3/uL Nucleated RBC % (auto) (0.0-0.2) /100WBC Sodium (135-145) mmol/L Potassium (3.3-5.1) mmol/L Chloride (96-108) mmol/L Carbon Dioxide (22-29) mmol/L Anion Gap (12-20) BUN (9-16) mg/dL Creatinine (0.5-1.4) mg/dL Estim Creat Clear Calc Estimated GFR Random Glucose (60-115) mg/dL Calcium (8.4-10.2) mg/dL Troponin I High Sens 4.2 (<3.5-17.0) ng/L COVID-19 (CELINA) (Negative) COVID-19 Clin Com Imaging Data Chest x-ray: Attestation: I personally reviewed and interpreted this imaging study as follows: Radiologist's impression: EXAMINATION: XR CHEST CLINICAL INFORMATION: Dyspnea COMPARISON: Chest x-ray 10/02/2020 TECHNIQUE: Frontal view of the chest was obtained. FINDINGS: Cardiac silhouette is normal in size. The lungs are mildly hypoinflated. There is asymmetric elevation of right hemidiaphragm. There is no lobar consolidation. No pleural effusion or pneumothorax. XR/XR chest 1V IMPRESSION: Hypoinflated lungs without acute pulmonary pathology. ECG Data Attestation: I personally reviewed and interpreted this ECG as follows: ECG interpretation date: 10/02/21 ECG interpretation time: 20:10 Prior ECG tracings: available for review Interpretation: Vent. rate 85 BPM TN interval 154 ms QRS duration 78 ms QT/QTc 386/459 ms P-R-T axes 26 0 33 Normal sinus rhythm Minimal voltage criteria for LVH, may be normal variant ( R in aVL ) Inferior infarct (cited on or before 02-OCT-2020) Abnormal ECG When compared with ECG of 02-OCT-2020 12:53, No significant change was found Discharge Plan Discharge Clinical Impression: Asthma with exacerbation, Migraine Patient Disposition: Home, Self-Care Instructions: Asthma (ED), Migraine Headache (ED) Additional Instructions: You were evaluated for headache and shortness of breath. Please continue to use your medications as directed. Follow-up with your headache specialist as scheduled. We treated you for asthma exacerbation and migraine headache. Thank you for choosing this emergency department for evaluation. Please follow-up with primary care physician as needed. Return to the emergency department for any new, concerning, or worsening symptoms. Prescriptions: No Action acetaminophen [Tylenol Extra Strength] 500 mg tablet 1,000 mg PO QID PRN (Reason: fever or pain) Qty: 14 0RF ibuprofen 400 mg tablet 400 mg PO Q6H PRN (Reason: pain) Qty: 14 0RF ferrous sulfate 325 mg (65 mg iron) tablet 325 mg PO DAILY Qty: 30 0RF Interventions: ED Discharge Assessment Last Done: 10/02/21 22:20 Discharge Date/Time: 10/02/21 22:22
[2021-10-02 20:29] VITALS: BP 134/86; PULSE 87; RESP 20; TEMP 36.8; O2SAT 96
[2021-10-02 20:40] LABS: COVID-19 Test Negative (Negative)
[2021-10-02 20:48] VITALS: PULSE 87; RESP 18; O2SAT 92
[2021-10-02] MEDS: Albuterol Sulfate (0.083%) 2.5 MG/3 ML VIAL.NEB 5 MG INHALE (20:48)
--- NOTE | 2021-10-02 21:09 | PC.NURSE ---
medications given late due to patient being a difficult poke
[2021-10-02 21:15] LABS: MANUAL DIFF FLAG NO
[2021-10-02] MEDS: 0.9 % Sodium Chloride 1,000 ML 999 ML IVCONT (21:16)
[2021-10-02] MEDS: SUMAtriptan succinate 6 MG/0.5 ML VIAL SUBCUT (21:17)
[2021-10-02] MEDS: Metoclopramide HCl 10 MG/2 ML VIAL IVPUSH (21:17)
[2021-10-02] MEDS: diphenhydrAMINE HCL 50 MG/ML VIAL 25 MG IVPUSH (21:17)
[2021-10-02] MEDS: methylPREDNISolone Sod Succ 125 MG/2 ML VIAL IVPUSH (21:17)
[2021-10-02 21:18] LABS: Basophils Percent Auto 0.3 % (0-2); Eosinophils Absolute Auto 0.3 X10*3/uL (0.0-0.4); Eosinophils Percent Auto 2.7 % (0-4); Hematocrit 40.1 % (37.0-47.0); Hemoglobin 12.4 g/dl (12.0-16.0); Imm Gran Abs Auto 0.14 X10*3/uL (0.00-0.03); Imm Gran Pct Auto 1.5 % (0.0-0.4); Lymphocytes Absolute Auto 2.3 X10*3/uL (1.2-4.9); Lymphocytes Percent Auto 24.4 % (20-40); Mean Corpuscular HGB Conc 30.9 g/dl (31.0-35.0); Mean Corpuscular Hemoglobin 30.8 pg (27.0-33.0); Mean Corpuscular Volume 99.8 fL (80.0-98.0); Monocytes Absolute Auto 0.5 X10*3/uL (0.1-1.2); Monocytes Percent Auto 5.1 % (2-11); Neutrophils Absolute Auto 6.2 x10*3/uL (2.0-8.3); Platelet Count 235 X10*3/uL (160-400); Red Blood Count 4.02 X10*6/uL (4.20-5.50); Red Cell Distribution Width 14.3 % (11.0-16.0); White Blood Count 9.4 X10*3/uL (4.8-10.8)
[2021-10-02 21:31] LABS: Anion Gap 13 (12-20); Blood Urea Nitrogen 20 mg/dL (9-16); Calcium 8.9 mg/dL (8.4-10.2); Carbon Dioxide 22 mmol/L (22-29); Chloride 109 mmol/L (96-108); Creatinine Clr Calc Pharmacy 55.1; Estimated Glomerular Filt Rate 51; Glucose Random 99 mg/dL (60-115); Potassium 3.9 mmol/L (3.3-5.1); Sodium 140 mmol/L (135-145)
[2021-10-02 21:38] LABS: Troponin-I High Sensitivity 4.2 ng/L (<3.5-17.0)
== END 2021-10-02 22:22 | disposition home or self-care (01) ==
PROVIDERS: Nurse Practitioner Family; Emergency Provider Emergency Medicine Emergency Medical Services; PCP Internal Medicine
DX: J45.901 Unspecified asthma with (acute) exacerbation (principal); G43.909 Migraine, unspecified, not intractable, without status migrainosus; Z20.822 Contact with and (suspected) exposure to COVID-19; R06.02 Shortness of breath
CPT/HCPCS: 36415; 71045; 80048; 84484; 85025; 87635; 93005; 94640; 94644; 96361; 96372; 96374; 96375; 99284; 99285; J1200; J2765; J2930; J3030

== ENCOUNTER 2021-10-15 18:54 | Emergency (ER) | payer MEDICARE, SELFPAY ==
--- NOTE | 2021-10-15 | ECG_ITS ---
Test Reason : SOB Blood Pressure : / mmHG Vent. Rate : 080 BPM Atrial Rate : 080 BPM P-R Int : 158 ms QRS Dur : 088 ms QT Int : 376 ms P-R-T Axes : 022 -13 014 degrees QTc Int : 433 ms Normal sinus rhythm Moderate voltage criteria for LVH, may be normal variant ( R in aVL , [place] product ) Nonspecific T wave abnormality Abnormal ECG When compared with ECG of 02-OCT-2021 20:10, Criteria for Inferior infarct are no longer Present Referred By: Generic ED Physician Electronically Signed By:Elpidio So
--- NOTE | ~2021-10-15 | XR_ITS ---
EXAMINATION: XR chest 2V CLINICAL INFORMATION: Reason for Exam dyspnea COMPARISON: Chest radiograph 10/02/2021 TECHNIQUE: One view of the chest XR/XR chest 2V FINDINGS/IMPRESSION: * Low lung volumes with elevation of the right hemidiaphragm similar to prior. * New trace right pleural effusion. No pneumothorax. * Normal cardiomediastinal silhouette.
[2021-10-15 19:07] VITALS: PULSE 89; RESP 28; TEMP 36.2; O2SAT 96; BMI 43.7
[2021-10-15 21:09] LABS: MANUAL DIFF FLAG NO
[2021-10-15 21:15] LABS: Basophils Percent Auto 0.3 % (0-2); Eosinophils Percent Auto 0.1 % (0-4); Hemoglobin 12.8 g/dl (12.0-16.0); Imm Gran Abs Auto 0.12 X10*3/uL (0.00-0.03); Imm Gran Pct Auto 1.2 % (0.0-0.4); Lymphocytes Percent Auto 19.7 % (20-40); Mean Corpuscular Hemoglobin 31.8 pg (27.0-33.0); Mean Corpuscular Volume 99.5 fL (80.0-98.0); Mean Platelet Volume 9.9 fL (9.4-12.3); Monocytes Absolute Auto 0.6 X10*3/uL (0.1-1.2); Monocytes Percent Auto 6.2 % (2-11); Neutrophils Absolute Auto 7.2 x10*3/uL (2.0-8.3); Neutrophils Percent Auto 72.5 % (45-73); Platelet Count 290 X10*3/uL (160-400); Red Blood Count 4.02 X10*6/uL (4.20-5.50); Red Cell Distribution Width 14.2 % (11.0-16.0); White Blood Count 9.9 X10*3/uL (4.8-10.8)
[2021-10-15 21:24] LABS: Alanine Aminotransferase 19 U/L (0-31); Albumin Level 4.3 g/dL (3.5-5.0); Alkaline Phosphatase 70 U/L (39-117); Anion Gap 12 (12-20); Aspartate Amino Transferase 12 U/L (5-31); Bilirubin Total 0.2 mg/dL (0.0-1.0); Blood Urea Nitrogen 17 mg/dL (9-16); Calcium 9.2 mg/dL (8.4-10.2); Carbon Dioxide 23 mmol/L (22-29); Chloride 109 mmol/L (96-108); Creatinine Clr Calc Pharmacy 52.9; Estimated Glomerular Filt Rate 50; Glucose Random 91 mg/dL (60-115); Potassium 4.1 mmol/L (3.3-5.1); Sodium 140 mmol/L (135-145)
--- NOTE | 2021-10-15 23:56 | PC.NURSE ---
called x 2 no answer
== END 2021-10-15 23:57 | disposition left against medical advice (07) ==
PROVIDERS: Emergency Provider Emergency Medicine
DX: R06.00 Dyspnea, unspecified (principal); J45.909 Unspecified asthma, uncomplicated; Z79.899 Other long term (current) drug therapy
CPT/HCPCS: 36415; 71046; 80053; 85025; 93005; 99283

== ENCOUNTER 2021-10-30 18:35 | Emergency (ER) | payer MEDICARE, SELFPAY ==
--- NOTE | ~2021-10-30 | CT_ITS ---
EXAMINATION: CT ANGIOGRAM OF THE CHEST WITH AND WITHOUT CONTRAST (CT PULMONARY ANGIOGRAM FOR PE) CLINICAL INFORMATION: Reason for Exam sob COMPARISON: Chest x-ray dated 10/30/2021 and 10/02/2021 TECHNIQUE: Prior to contrast administration, noncontrast localization images were obtained. Subsequently, multidetector volumetric imaging was performed from the thoracic inlet to below the diaphragms following the administration of 75 mL Omnipaque 350 intravenous contrast. No contrast reaction reported Sagittal, coronal, and MIP oblique sagittal reformatted images were obtained on the CT workstation, uploaded to PACS, and reviewed. This CT examination was performed using dose optimization techniques as appropriate, variously including the following: *Automated exposure control *Adjustment of mA and/or kV according to patient size (this includes techniques or standardized protocols for targeted exams where dose is matched to indication/reason for exam; i.e. extremities or head) *Use of iterative reconstruction technique Total exam dose-length product 514 mGy-cm FINDINGS: QUALITY OF STUDY/CONTRAST BOLUS: Satisfactory. PULMONARY ARTERIES: No central or segmental pulmonary emboli. THORACIC AORTA: No aneurysm or dissection. LUNG / PLEURA: Stable asymmetric elevation right hemidiaphragm with right basilar subsegmental atelectasis. No acute pneumonitis or parenchymal consolidation. No evidence of interstitial lung disease MEDIASTINUM: Normal heart size. No pericardial effusion. No hilar or mediastinal lymphadenopathy. No evidence of septal bowing or right heart strain. No reflux of contrast into the hepatic veins to suggest elevated right heart pressures. CHEST WALL/AXILLA: No axillary or internal mammary lymphadenopathy. OSSEOUS STRUCTURES: No acute or suspicious osseous abnormality. UPPER ABDOMEN: Diffuse hepatic steatosis. CT/CT angio chest PE protocol IMPRESSION: * No pulmonary embolism. * No aortic aneurysm or dissection. * No acute pulmonary parenchymal abnormalities. * Hepatic steatosis. VTE: negative
--- NOTE | ~2021-10-30 | XR_ITS ---
EXAMINATION: XR CHEST CLINICAL INFORMATION: Shortness of breath COMPARISON: 10/15/2021 TECHNIQUE: Frontal view of the chest was obtained. FINDINGS: Compared to the prior study from 10/15/2021 is been no interval change. Again seen are low lung volumes. Heart size within normal limits. No infiltrates, large effusions or pneumothorax is seen. XR/XR chest 1V IMPRESSION: Hypoinflated lungs. No acute intrathoracic disease.
[2021-10-30 18:38] VITALS: BP 139/89; PULSE 100; RESP 28; TEMP 36.5; O2SAT 98; BMI 43.7
[2021-10-30 18:43] VITALS: RESP 32; O2SAT 98
--- NOTE | 2021-10-30 18:43 | ECG_ITS ---
Test Reason : sob Blood Pressure : / mmHG Vent. Rate : 088 BPM Atrial Rate : 088 BPM P-R Int : 164 ms QRS Dur : 082 ms QT Int : 386 ms P-R-T Axes : 022 -12 026 degrees QTc Int : 467 ms Normal sinus rhythm Minimal voltage criteria for LVH, may be normal variant ( R in aVL ) Nonspecific ST abnormality Borderline ECG When compared with ECG of 15-OCT-2021 20:47, No significant change was found Referred By: Generic ED Physician Electronically Signed By:AMANDA SAUER MD
[2021-10-30 20:52] LABS: MANUAL DIFF FLAG NO
[2021-10-30 20:54] LABS: Basophils Absolute Auto 0.1 X10*3/uL (0.0-0.2); Eosinophils Absolute Auto 0.3 X10*3/uL (0.0-0.4); Eosinophils Percent Auto 4.6 % (0-4); Hematocrit 38.2 % (37.0-47.0); Hemoglobin 12.2 g/dl (12.0-16.0); Imm Gran Abs Auto 0.09 X10*3/uL (0.00-0.03); Imm Gran Pct Auto 1.2 % (0.0-0.4); Lymphocytes Absolute Auto 2.2 X10*3/uL (1.2-4.9); Lymphocytes Percent Auto 30.2 % (20-40); Mean Corpuscular HGB Conc 31.9 g/dl (31.0-35.0); Mean Corpuscular Hemoglobin 31.8 pg (27.0-33.0); Mean Corpuscular Volume 99.5 fL (80.0-98.0); Monocytes Absolute Auto 0.4 X10*3/uL (0.1-1.2); Monocytes Percent Auto 5.9 % (2-11); Neutrophils Absolute Auto 4.1 x10*3/uL (2.0-8.3); Neutrophils Percent Auto 57.1 % (45-73); Platelet Count 229 X10*3/uL (160-400); Red Blood Count 3.84 X10*6/uL (4.20-5.50); White Blood Count 7.2 X10*3/uL (4.8-10.8)
[2021-10-30 21:10] LABS: Anion Gap 15 (12-20); Blood Urea Nitrogen 16 mg/dL (9-16); COVID-19 Test Negative (Negative); Calcium 8.9 mg/dL (8.4-10.2); Carbon Dioxide 20 mmol/L (22-29); Chloride 110 mmol/L (96-108); Estimated Glomerular Filt Rate 46; Glucose Random 105 mg/dL (60-115); Potassium 3.9 mmol/L (3.3-5.1); Sodium 141 mmol/L (135-145)
--- NOTE | 2021-10-30 23:09 | ED_ITS ---
HPI - SOB/Dyspnea General Chief Complaint: Dyspnea Stated Complaint: sob asthma,chest pain Time Seen by Provider: 10/30/21 23:08 Source: patient Mode of arrival: ambulatory Limitations: no limitations History of Present Illness HPI Narrative: Patient history of asthma been feeling increased shortness of breath for last 1 week on prednisone seen by PCP who sent her here for evaluation patient does have sleep apnea and does not have the machine for last 1 month since then patient has been coughing and having shortness of breath no fever no chills no chest pain or palpitation patient is saturating 98% at room air Related Data Previous Rx's Medication Instructions Recorded acetaminophen 500 mg tablet 1,000 mg PO QID PRN fever or pain 10/02/20 (Tylenol Extra Strength) #14 tabs ferrous sulfate 325 mg (65 mg 325 mg PO DAILY Iron deficiency 10/02/20 iron) tablet anemia #30 tabs ibuprofen 400 mg tablet 400 mg PO Q6H PRN pain #14 tabs 10/02/20 benzonatate 200 mg capsule 200 mg PO TID PRN cough #30 caps 10/31/21 doxycycline hyclate 100 mg tablet 100 mg PO BID #20 tabs 10/31/21 prednisone 20 mg tablet 40 mg PO DAILY #10 tabs 10/31/21 Allergies Allergy/AdvReac Type Severity Reaction Status Date / Time cephalexin [From Keflex] Allergy Rash Verified 10/30/21 18:38 droperidol Allergy Anaphylaxis Verified 10/02/21 17:43 ketorolac [From Toradol] Allergy Itching Verified 09/29/21 18:28 Penicillins Allergy Rash Verified 10/02/21 17:43 Sulfa (Sulfonamide Allergy Rash Verified 10/02/21 17:43 Antibiotics) Review of Systems Review of Systems: Yes all other systems are reviewed and are negative PMF Past Medical History Medical History Celiac disease Colitis Left-sided weakness Surgical History History of cholecystectomy Social History Social History Alcohol intake: never Patient Tobacco Use Status: Never used Tobacco Use of substances other than those prescribed or required for medical reasons: No Advance Directives: Yes Advance Directives Information Provided: No Advance Directives on File: No Patient : No Physical Exam Vital Signs: Vital Signs: Last Vital Signs Temp 97.7 F 10/30/21 18:38 Pulse 94 10/31/21 00:48 Resp 21 H 10/31/21 00:48 BP 157/93 H 10/31/21 00:48 Pulse Ox 96 10/31/21 00:48 O2 Del Method 10/31/21 00:48 BMI result Body Mass Index 43.7 Appearance: Alert. Oriented X3. No acute distress. Eyes: PERRLA, No Nystagmus ENT: Pharynx normal. Oral Mucosa moist Neck: Normal inspection. Neck supple. CVS: Normal heart rate and rhythm. Pulses normal. Respiratory: No respiratory distress. Decreased air entry bilateral with prolonged expiration no crackles Abdomen: Soft and nontender. Bowel sounds are present, no mass palpable, no CVA tenderness Skin: Skin warm and dry. Normal skin color. Normal skin turgor. Extremities: No lower extremity edema. No calf tenderness Neuro: Oriented X 3. No motor deficit. No sensory deficit.No cerebellar signs , cranial nerves II-XII intact MDM - SOB/Dyspnea MDM Narrative Medical decision making narrative: Patient with asthma and sleep apnea not using the CPAP machine came for increased shortness of breath over 1 week taking a course of prednisone. Lab workup showed negative BNP normal WBC count will check D-dimer chest x-ray negative for infiltrate discharge patient home if D-dimer negative on supportive treatment Patient D-dimer only 244 will will do CTA chest to rule out PE Differential Diagnosis Differential diagnosis: Likely acute exacerbation of chronic obstructive airways disease, congestive heart failure, asthma with exacerbation and pulmonary embolism Lab Data Attestation: I reviewed the patient's lab results. Result diagrams: 10/30/21 20:46 10/30/21 20:46 Labs: Lab Results 10/30/21 10/30/21 10/30/21 Range/Units 20:46 20:46 20:46 WBC 7.2 (4.8-10.8) X10*3/uL RBC 3.84 L (4.20-5.50) X10*6/uL Hgb 12.2 (12.0-16.0) g/dl Hct 38.2 (37.0-47.0) % MCV 99.5 H (80.0-98.0) fL MCH 31.8 (27.0-33.0) pg MCHC 31.9 (31.0-35.0) g/dl RDW 14.0 (11.0-16.0) % Plt Count 229 (160-400) X10*3/uL MPV 10.0 (9.4-12.3) fL Immature Gran % (Auto) 1.2 H (0.0-0.4) % Neut % (Auto) 57.1 (45-73) % Lymph % (Auto) 30.2 (20-40) % [place] % (Auto) 5.9 (2-11) % Eos % (Auto) 4.6 H (0-4) % Baso % (Auto) 1.0 (0-2) % Lymph # (Auto) 2.2 (1.2-4.9) X10*3/uL [place] # (Auto) 0.4 (0.1-1.2) X10*3/uL Eos # (Auto) 0.3 (0.0-0.4) X10*3/uL Baso # (Auto) 0.1 (0.0-0.2) X10*3/uL Abs Immat Gran (auto) 0.09 H (0.00-0.03) X10*3/uL Absolute Neuts (auto) 4.1 (2.0-8.3) x10*3/uL Absolute Nucleated RBC 0.000 (0.0-0.012) X10*3/uL Nucleated RBC % (auto) 0.0 (0.0-0.2) /100WBC PT (10.0-13.1) SEC INR (0.9-1.1) APTT (26.0-36.4) SEC D-Dimer High Sensitivty NG/ML Sodium 141 (135-145) mmol/L Potassium 3.9 (3.3-5.1) mmol/L Chloride 110 H (96-108) mmol/L Carbon Dioxide 20 L (22-29) mmol/L Anion Gap 15 (12-20) BUN 16 (9-16) mg/dL Creatinine 1.25 (0.5-1.4) mg/dL Estim Creat Clear Calc 49.0 Estimated GFR 46 Random Glucose 105 (60-115) mg/dL Calcium 8.9 (8.4-10.2) mg/dL B-Natriuretic Peptide (<100) pg/mL COVID-19 ([facility]) Negative (Negative) COVID-19 Clin Com See Note 10/31/21 10/31/21 Range/Units 00:45 01:20 WBC (4.8-10.8) X10*3/uL RBC (4.20-5.50) X10*6/uL Hgb (12.0-16.0) g/dl Hct (37.0-47.0) % MCV (80.0-98.0) fL MCH (27.0-33.0) pg MCHC (31.0-35.0) g/dl RDW (11.0-16.0) % Plt Count (160-400) X10*3/uL MPV (9.4-12.3) fL Immature Gran % (Auto) (0.0-0.4) % Neut % (Auto) (45-73) % Lymph % (Auto) (20-40) % [place] % (Auto) (2-11) % Eos % (Auto) (0-4) % Baso % (Auto) (0-2) % Lymph # (Auto) (1.2-4.9) X10*3/uL [place] # (Auto) (0.1-1.2) X10*3/uL Eos # (Auto) (0.0-0.4) X10*3/uL Baso # (Auto) (0.0-0.2) X10*3/uL Abs Immat Gran (auto) (0.00-0.03) X10*3/uL Absolute Neuts (auto) (2.0-8.3) x10*3/uL Absolute Nucleated RBC (0.0-0.012) X10*3/uL Nucleated RBC % (auto) (0.0-0.2) /100WBC PT 11.0 (10.0-13.1) SEC INR 1.0 (0.9-1.1) APTT 36.4 (26.0-36.4) SEC D-Dimer High Sensitivty 244 NG/ML Sodium (135-145) mmol/L Potassium (3.3-5.1) mmol/L Chloride (96-108) mmol/L Carbon Dioxide (22-29) mmol/L Anion Gap (12-20) BUN (9-16) mg/dL Creatinine (0.5-1.4) mg/dL Estim Creat Clear Calc Estimated GFR Random Glucose (60-115) mg/dL Calcium (8.4-10.2) mg/dL B-Natriuretic Peptide < 10 (<100) pg/mL COVID-19 ([facility]) (Negative) COVID-19 Clin Com ECG Data Attestation: I personally reviewed and interpreted this ECG as follows: Interpretation: Normal sinus rhythm heart rate 88 beats per minute normal intervals normal axis LVH no acute ischemia Discharge Plan Discharge Clinical Impression: Acute exacerbation of chronic obstructive airways disease, Sleep apnea, obstructive, Asthma with exacerbation Patient Disposition: Still a Patient Instructions: Asthma (ED), Sleep Apnea (DC), Chronic Bronchitis (ED) Additional Instructions: Drink plenty of fluids Antibiotic as prescribed Cough drops as prescribed Follow with PCP for further evaluation including to get CPAP machine for sleep apnea Prescriptions: New benzonatate 200 mg capsule 200 mg PO TID PRN (Reason: cough) Qty: 30 0RF doxycycline hyclate 100 mg tablet 100 mg PO BID Qty: 20 0RF prednisone 20 mg tablet 40 mg PO DAILY Qty: 10 0RF No Action acetaminophen [Tylenol Extra Strength] 500 mg tablet 1,000 mg PO QID PRN (Reason: fever or pain) Qty: 14 0RF ibuprofen 400 mg tablet 400 mg PO Q6H PRN (Reason: pain) Qty: 14 0RF ferrous sulfate 325 mg (65 mg iron) tablet 325 mg PO DAILY Qty: 30 0RF
--- NOTE | 2021-10-30 23:31 | PC.NURSE ---
Pt. on shelter monitor at this time, EKG completed
[2021-10-30 23:35] VITALS: PULSE 86; RESP 21; O2SAT 99
[2021-10-30] MEDS: Albuterol/Iprat 2.5/0.5MG 3 ML AMPUL.NEB INHALE (23:35)
[2021-10-30] MEDS: Albuterol Sulfate (0.083%) 2.5 MG/3 ML VIAL.NEB INHALE (23:35)
[2021-10-31 00:48] VITALS: BP 157/93; PULSE 94; RESP 21; O2SAT 96
[2021-10-31 01:12] LABS: B Type Natriuretic Peptide < 10 pg/mL (<100)
--- NOTE | 2021-10-31 01:21 | PC.NURSE ---
Pt. was extremely tough stick for D-Dimer lab draw. Multiple attempts made by staff to obtain D-Dimer lab. Assisted MD Evin at bedside with US guided IV to obtain labs and to place IV access. Pt. now has an 18G to her left antecubital
[2021-10-31] MEDS: methylPREDNISolone Sod Succ 125 MG/2 ML VIAL IVPUSH (01:26)
[2021-10-31 01:33] LABS: D Dimer High Sensitivity 244 NG/ML; Partial Thromboplastin Time 36.4 SEC (26.0-36.4)
[2021-10-31] MEDS: Benzonatate 100 MG CAPSULE 200 MG PO (02:30)
[2021-10-31] MEDS: iohexoL 350 MG/ML 100 ML INFUS..BTL 75 ML IV (03:53)
[2021-10-31 05:11] VITALS: BP 153/91; PULSE 100; RESP 16; TEMP 36.6
== END 2021-10-31 06:41 | disposition home or self-care (01) ==
PROVIDERS: Emergency Provider Internal Medicine
DX: J45.901 Unspecified asthma with (acute) exacerbation (principal); J44.1 Chronic obstructive pulmonary disease with (acute) exacerbation; G47.33 Obstructive sleep apnea (adult) (pediatric); R06.02 Shortness of breath; R07.89 Other chest pain; Z20.822 Contact with and (suspected) exposure to COVID-19; Z79.899 Other long term (current) drug therapy
CPT/HCPCS: 36415; 71045; 71275; 80048; 83880; 85025; 85379; 85610; 85730; 87635; 93005; 94640; 94644; 96374; 99284; 99285; J2930; Q9967

== ENCOUNTER 2021-12-02 15:42 | Emergency (ER) | payer MEDICARE, SELFPAY ==
[2021-12-02 15:44] VITALS: BP 150/87; PULSE 100; RESP 18; TEMP 36.7; O2SAT 97; BMI 43.7
[2021-12-02 16:00] LABS: MANUAL DIFF FLAG NO
[2021-12-02 16:25] LABS: Alanine Aminotransferase 30 U/L (0-31); Albumin Level 4.3 g/dL (3.5-5.0); Alkaline Phosphatase 75 U/L (39-117); Anion Gap 19 (12-20); Aspartate Amino Transferase 26 U/L (5-31); Bilirubin Total 0.3 mg/dL (0.0-1.0); Blood Urea Nitrogen 9 mg/dL (9-16); Calcium 8.8 mg/dL (8.4-10.2); Carbon Dioxide 17 mmol/L (22-29); Chloride 108 mmol/L (96-108); Creatinine Clr Calc Pharmacy 58.9; Estimated Glomerular Filt Rate 57; Glucose Random 88 mg/dL (60-115); Potassium 4.5 mmol/L (3.3-5.1); Sodium 139 mmol/L (135-145); Total Protein 7.5 g/dL (6.5-8.0)
[2021-12-02 16:30] LABS: Basophils Absolute Auto 0.1 X10*3/uL (0.0-0.2); Eosinophils Absolute Auto 0.2 X10*3/uL (0.0-0.4); Eosinophils Percent Auto 2.1 % (0-4); Hematocrit 43.6 % (37.0-47.0); Hemoglobin 13.8 g/dl (12.0-16.0); Imm Gran Abs Auto 0.04 X10*3/uL (0.00-0.03); Imm Gran Pct Auto 0.5 % (0.0-0.4); Lymphocytes Absolute Auto 1.5 X10*3/uL (1.2-4.9); Lymphocytes Percent Auto 19.3 % (20-40); Mean Corpuscular HGB Conc 31.7 g/dl (31.0-35.0); Mean Corpuscular Hemoglobin 31.7 pg (27.0-33.0); Mean Corpuscular Volume 100.2 fL (80.0-98.0); Monocytes Absolute Auto 0.6 X10*3/uL (0.1-1.2); Monocytes Percent Auto 7.4 % (2-11); Neutrophils Absolute Auto 5.4 x10*3/uL (2.0-8.3); Neutrophils Percent Auto 69.7 % (45-73); Platelet Count 288 X10*3/uL (160-400); Red Blood Count 4.35 X10*6/uL (4.20-5.50); Red Cell Distribution Width 13.1 % (11.0-16.0); White Blood Count 7.7 X10*3/uL (4.8-10.8)
== END 2021-12-02 20:08 | disposition left against medical advice (07) ==
PROVIDERS: Emergency Provider Emergency Medicine; PCP Internal Medicine
DX: R10.31 Right lower quadrant pain (principal); R11.2 Nausea with vomiting, unspecified
CPT/HCPCS: 36415; 80053; 85025; 99281; 99283

== ENCOUNTER 2021-12-09 12:27 | Emergency (ER) | payer OTHER, SELFPAY ==
[2021-12-09 13:41] VITALS: BP 151/82; PULSE 100; RESP 18; TEMP 36.6; O2SAT 98; BMI 44.1
[2021-12-09 15:27] LABS: MANUAL DIFF FLAG NO
[2021-12-09 15:35] LABS: Basophils Percent Auto 0.6 % (0-2); Eosinophils Absolute Auto 0.2 X10*3/uL (0.0-0.4); Eosinophils Percent Auto 2.2 % (0-4); Hematocrit 44.4 % (37.0-47.0); Hemoglobin 14.4 g/dl (12.0-16.0); Imm Gran Abs Auto 0.02 X10*3/uL (0.00-0.03); Imm Gran Pct Auto 0.3 % (0.0-0.4); Lymphocytes Absolute Auto 1.5 X10*3/uL (1.2-4.9); Lymphocytes Percent Auto 21.8 % (20-40); Mean Corpuscular HGB Conc 32.4 g/dl (31.0-35.0); Mean Corpuscular Hemoglobin 32.1 pg (27.0-33.0); Mean Corpuscular Volume 98.9 fL (80.0-98.0); Mean Platelet Volume 9.8 fL (9.4-12.3); Monocytes Absolute Auto 0.5 X10*3/uL (0.1-1.2); Monocytes Percent Auto 6.9 % (2-11); Neutrophils Absolute Auto 4.6 x10*3/uL (2.0-8.3); Neutrophils Percent Auto 68.2 % (45-73); Platelet Count 304 X10*3/uL (160-400); Red Blood Count 4.49 X10*6/uL (4.20-5.50); Red Cell Distribution Width 12.8 % (11.0-16.0); White Blood Count 6.8 X10*3/uL (4.8-10.8)
[2021-12-09 15:47] LABS: COVID-19 Test Negative (Negative); IDNOW Serial# 9DB6401D
[2021-12-09 15:49] LABS: Anion Gap 17 (12-20); Blood Urea Nitrogen 14 mg/dL (9-16); Calcium 9.7 mg/dL (8.4-10.2); Carbon Dioxide 25 mmol/L (22-29); Chloride 104 mmol/L (96-108); Creatinine Clr Calc Pharmacy 53.6; Estimated Glomerular Filt Rate 50; Glucose Random 96 mg/dL (60-115); Potassium 4.5 mmol/L (3.3-5.1); Sodium 141 mmol/L (135-145)
== END 2021-12-10 00:19 | disposition left against medical advice (07) ==
PROVIDERS: Emergency Provider Emergency Medicine; PCP Internal Medicine
DX: R10.31 Right lower quadrant pain (principal); R11.2 Nausea with vomiting, unspecified; Z20.822 Contact with and (suspected) exposure to COVID-19
CPT/HCPCS: 80048; 85025; 87635; 99281; 99283

== ENCOUNTER 2021-12-14 12:51 | Emergency (ER) | payer OTHER, SELFPAY ==
[2021-12-14 14:17] VITALS: BP 149/99; PULSE 99; RESP 20; TEMP 37.2; O2SAT 98; BMI 43.4
--- NOTE | 2021-12-14 15:33 | PC.NURSE ---
PT TOUGH STICK, MULTIPLE ATTEMPTS BY STAFF. WILL REATTEMPT INSIDE ED.
[2021-12-14 15:39] LABS: Appearance Urine Clear; Color Urine Yellow; Glucose Urine UA Negative (Negative); Leukocyte Esterase Urine Small (1+) (Negative); Nitrite Urine Negative (Negative); Specific Gravity - Urine 1.015 (1.005-1.025); UMIC TRIGGER UACC YES; Urine Blood Negative (Negative); Urine Ketones Negative (Negative); Urine Protein Negative (Neg-Trace)
[2021-12-14 15:50] LABS: Bacteria Urine 1+ (None Seen); Hyaline Casts Urine 0-2 /LPF (0-2); RBC Urine 0-2 /HPF (0-2); UACC Culture Trigger YES
[2021-12-14 16:03] LABS: UPreg QC Valid YES; Urine Pregnancy NEGATIVE (NEGATIVE)
--- NOTE | 2021-12-14 20:23 | PC.NURSE ---
pt reports 2 episodes coffee ground emesis in WR, after triage. type and screen added to orders. pt re attempted for bloodwork. director perioperative on their way.
[2021-12-14 21:05] LABS: MANUAL DIFF FLAG NO
[2021-12-14 21:12] LABS: Basophils Absolute Auto 0.1 X10*3/uL (0.0-0.2); Eosinophils Absolute Auto 0.2 X10*3/uL (0.0-0.4); Eosinophils Percent Auto 3.5 % (0-4); Hematocrit 42.9 % (37.0-47.0); Hemoglobin 14.2 g/dl (12.0-16.0); Imm Gran Abs Auto 0.02 X10*3/uL (0.00-0.03); Imm Gran Pct Auto 0.3 % (0.0-0.4); Lymphocytes Absolute Auto 1.8 X10*3/uL (1.2-4.9); Lymphocytes Percent Auto 29.2 % (20-40); Mean Corpuscular HGB Conc 33.1 g/dl (31.0-35.0); Mean Corpuscular Hemoglobin 32.3 pg (27.0-33.0); Mean Corpuscular Volume 97.5 fL (80.0-98.0); Mean Platelet Volume 10.2 fL (9.4-12.3); Monocytes Absolute Auto 0.4 X10*3/uL (0.1-1.2); Monocytes Percent Auto 6.5 % (2-11); Neutrophils Absolute Auto 3.8 x10*3/uL (2.0-8.3); Neutrophils Percent Auto 59.5 % (45-73); Platelet Count 274 X10*3/uL (160-400); Red Cell Distribution Width 12.6 % (11.0-16.0); White Blood Count 6.3 X10*3/uL (4.8-10.8)
[2021-12-14 21:34] LABS: Alanine Aminotransferase 23 U/L (0-31); Albumin Level 4.5 g/dL (3.5-5.0); Alkaline Phosphatase 87 U/L (39-117); Anion Gap 20 (12-20); Aspartate Amino Transferase 25 U/L (5-31); Bilirubin Direct < 0.2 mg/dL (0.0-0.5); Bilirubin Total 0.3 mg/dL (0.0-1.0); Blood Urea Nitrogen 17 mg/dL (9-16); Calcium 9.8 mg/dL (8.4-10.2); Carbon Dioxide 21 mmol/L (22-29); Chloride 104 mmol/L (96-108); Estimated Glomerular Filt Rate 53; Glucose Random 87 mg/dL (60-115); Sodium 141 mmol/L (135-145); Total Protein 7.5 g/dL (6.5-8.0)
== END 2021-12-14 22:06 | disposition left against medical advice (07) ==
PROVIDERS: Physician Assistant Medical; Emergency Provider Emergency Medicine; PCP Internal Medicine
DX: R10.9 Unspecified abdominal pain (principal)
CPT/HCPCS: 36415; 80053; 81001; 81025; 82248; 85025; 87086; 99282; 99283

== ENCOUNTER 2021-12-15 06:43 | Emergency (ER) | payer OTHER, SELFPAY ==
--- NOTE | ~2021-12-15 | CT_ITS ---
EXAMINATION: CT ABDOMEN AND PELVIS WITHOUT AND WITH CONTRAST CLINICAL INFORMATION: Vomiting coffee-ground emesis. Right upper quadrant/right lower quadrant abdominal pain. COMPARISON: CT pulmonary angiogram dated 10/31/2021. CT scan of the abdomen and pelvis dated 10/02/2020. TECHNIQUE: Multidetector CT volumetric acquisition of the abdomen and pelvis was performed before and after the administration of 80 mL of intravenous Omnipaque 350. 2 minute delayed imaging of the abdomen and pelvis was also performed. The data sets were reformatted in the sagittal and coronal planes and reviewed on an independent workstation. This CT examination was performed using dose optimization techniques as appropriate, variously including the following: *Automated exposure control *Adjustment of mA and/or kV according to patient size (this includes techniques or standardized protocols for targeted exams where dose is matched to indication/reason for exam; i.e. extremities or head) *Use of iterative reconstruction technique DLP: 2096 mGy-cm. FINDINGS: LOWER CHEST: Mild linear subsegmental atelectasis in the lung bases bilaterally. LIVER, GALLBLADDER, BILIARY TREE: Liver normal size and attenuation. No focal cystic or solid mass. Hepatic and portal veins patent. Gallbladder surgically absent with several akin seen in the gallbladder fossa. There is mild central intrahepatic ductal dilatation and extrahepatic ductal dilatation. Common bile duct measures 0.8 cm in the pancreatic head. No definite obstructing stone or mass is seen and findings are likely related to the patient's postcholecystectomy state. PANCREAS: Normal. No ductal dilatation, mass, or surrounding stranding. SPLEEN: Normal size and appearance. Splenic vein patent. ADRENAL GLANDS AND KIDNEYS: Adrenal glands normal. Kidneys bilaterally symmetric in size and function. No focal mass, hydronephrosis, nephrolithiasis or perinephric stranding. URETERS AND BLADDER: Ureters decompressed and within normal limits. Bladder partially distended and within normal limits. PELVIC ORGANS: Unremarkable. GASTROINTESTINAL TRACT: There is a nonspecific linear streak of faint hyperdensity seen in the gastric fundus seen on the noncontrast initial series (series 4, image 23). After contrast administration, no active extravasation of contrast is seen in this region or elsewhere in the stomach. Small bowel loops are decompressed and unremarkable with no definite region of acute GI bleed seen. The colon is moderately distended with large amounts of fecal material. No abnormal hyperdensity in the colon is seen. Postcontrast to suspect an acute GI bleed. Appendix in right lower quadrant is not visualized, but no focal inflammatory process is seen in the right lower quadrant. ABDOMINAL WALL: There is a tiny fat-containing umbilical hernia. LYMPHOVASCULAR STRUCTURES: Abdominal aorta normal in caliber without significant atherosclerotic calcification seen. No periaortic collections. The celiac axis, SMA and DEAN are all widely patent. Both renal arteries are patent. No abdominal or pelvic adenopathy or free fluid collection. BONES: S-shaped thoracolumbar scoliosis and mild degenerative disc disease and facet arthropathy at the lumbosacral junction. CT/CT gi bleed abd pel wo/w IVcon IMPRESSION: 1. No active evidence of upper GI bleed seen to explain the patient's coffee ground emesis. Close clinical correlation and follow-up evaluation as clinically appropriate is recommended. 2. Mild intra and extrahepatic ductal dilatation is noted, most consistent with patient's postcholecystectomy state. No definite obstructing stone or mass is noted.
[2021-12-15 07:11] VITALS: BP 121/81; PULSE 109; RESP 18; TEMP 36.7; O2SAT 97; BMI 43.0
--- NOTE | 2021-12-15 11:16 | ED_ITS ---
HPI - Abdominal Pain General Chief Complaint: Abdominal Pain Stated Complaint: was called to come in again Time Seen by Provider: 12/15/21 11:07 Source: patient Mode of arrival: ambulatory Limitations: no limitations History of Present Illness HPI narrative: Patient is a 51-year-old female with PMH of ulcerative colitis, celiac disease, hypertension, migraines, asthma, anxiety/depression presenting with 4 days of abdominal pain, nausea, vomiting with blood, fever. Patient reports fever of 102 yesterday and 101 the day before, has not been able to keep any Tylenol down. Patient reports severe right-sided abdominal pain that is sharp and constant. Also reports feeling short of breath no last few days, states her asthma is typically under control. Reports colonoscopy few months ago was normal. Reports taking all medications as prescribed. Denies headache, visual changes, dizziness, chest pain, diarrhea, constipation, melena, hematochezia. Patient reports that this is not a typical presentation of her ulcerative colitis. Patient reports history of cholecystectomy, denies any other abdominal surgeries. Patient was in our waiting room yesterday and received labs however left before she was seen by provider. MD elicited complaint: abdominal pain Pertinent past history: other (Ulcerative colitis, celiac disease) Onset (ago): day(s) Pain Consistency: constant Location: RUQ and RLQ Severity: severe Quality: sharp Radiation: none Exacerbating factors: other (Palpation) Relieving factors: nothing Associated symptoms: nausea, vomiting and fever (Describing coffee-ground emesis) Related Data Previous Rx's Medication Instructions Recorded acetaminophen 500 mg tablet 1,000 mg PO QID PRN fever or pain 10/02/20 (Tylenol Extra Strength) #14 tabs ferrous sulfate 325 mg (65 mg 325 mg PO DAILY Iron deficiency 10/02/20 iron) tablet anemia #30 tabs ibuprofen 400 mg tablet 400 mg PO Q6H PRN pain #14 tabs 10/02/20 benzonatate 200 mg capsule 200 mg PO TID PRN cough #30 caps 10/31/21 doxycycline hyclate 100 mg tablet 100 mg PO BID #20 tabs 10/31/21 prednisone 20 mg tablet 40 mg PO DAILY #10 tabs 10/31/21 nitrofurantoin 100 mg PO BID 7 days #14 caps 12/15/21 monohydrate/macrocrystals 100 mg capsule (Macrobid) ondansetron 4 mg disintegrating 4 mg PO Q8H #14 tabs 12/15/21 tablet Allergies Allergy/AdvReac Type Severity Reaction Status Date / Time cephalexin [From Keflex] Allergy Rash Verified 12/15/21 07:11 droperidol Allergy Anaphylaxis Verified 12/15/21 07:11 ketorolac [From Toradol] Allergy Itching Verified 12/15/21 07:11 Penicillins Allergy Rash Verified 12/15/21 07:11 Sulfa (Sulfonamide Allergy Rash Verified 12/15/21 07:11 Antibiotics) Review of Systems Review of Systems Constitutional : + Fever, No Chills, No Night Sweats, No Fatigue, No Malaise Cardiovascular : No Chest Pain, + SOB Respiratory : No Cough, No Sputum, No Wheezing, + Dyspnea Gastrointestinal : + Nausea, + Vomiting, No Diarrhea, + abdominal Pain, + hematemesis No Hematochezia, No Melena Genitourinary : No irregular bleeding, No Dysuria, No Urinary Frequency, No Hematuria,No Urinary Incontinence, No Urgency, No Flank Pain Musculoskeletal : No joint pain, No Myalgias, No Joint Swelling Skin : No Skin Lesions, No rash Neuro : No Weakness, No Numbness, No Paresthesias, No Loss of Consciousness, No Dizziness, No Headache Heme/Lymph: No Lymphadenopathy Endocrine : No Temperature Intolerance Yes all other systems are reviewed and are negative FOR[facility]LY [facility], [facility] Past Medical History Attestation statement: The following information was validated with the patient. Source: old records reviewed and nursing notes reviewed Medical History Celiac disease Colitis Left-sided weakness Surgical History History of cholecystectomy Social History Social History Alcohol intake: never Patient Tobacco Use Status: Never used Tobacco Advance Directives: Yes Advance Directives Information Provided: Yes Advance Directives on File: No Physical Exam ED Vital Signs: Vital Signs - 24 hr 12/15/21 07:11 12/15/21 11:39 12/15/21 13:09 Temperature 98.0 F 98.2 F Pulse Rate 109 H 102 H Respiratory Rate 18 16 16 Blood Pressure 121/81 151/100 H Pulse Oximetry 97 99 Oxygen Delivery Method Room Air Room Air 12/15/21 14:44 12/15/21 14:56 Temperature 98.1 F Pulse Rate 99 Respiratory Rate 16 16 Blood Pressure 131/82 Pulse Oximetry Oxygen Delivery Method Room Air BMI result Body Mass Index 43.0 Vital signs reviewed and patient with blood pressure 121/81. Pulse 109. Respiration 18. Temperature 98.0 degrees. Oxygen saturation 97% on room air. Appearance: Alert. Oriented X3. No acute distress. Head: Normal external exam. Normocephalic. Eyes: PERRLA. EOMI. Conjunctiva and sclera normal. Eyelids normal. ENT: Pharynx normal. Uvula midline. Moist mucous membranes. No trismus noted. No drooling noted. No muffled voice noted. Neck: Normal inspection. Neck supple. FROM. No adenopathy. No meningeal signs. CVS: Tachycardic heart rate and normal rhythm. Heart sound normal. No murmurs noted. Pulses normal throughout. Respiratory: No respiratory distress. Painless inspiration. Breath sounds normal. No wheezes/rales/rhonchi noted. Chest nontender. No accessory muscle usage noted or decreased air movement noted. Abdomen: Soft and tender to palpation in RUQ and RLQ with guarding and grimacing. Nondistended. No rigidity. Bowel sounds normal in all 4 quadrants. Tender at McBurney's point, No organomegaly noted. No visible injury noted. + rebound tenderness. + Rovsing sign. Negative obturator's sign. Negative psoas sign. Negative Freire sign. Back: No CVA tenderness. Full range of motion noted. Skin: Skin warm and dry. Normal skin color. Normal skin turgor. No rashes/lesions/lacerations noted. Extremities: Extremities exhibit normal range of motion. Extremities nontender. Neuro: Oriented X 3. No motor deficit. No sensory deficit. Reflexes normal. Normal steady gait. CN's II-XII intact bilaterally? Course Course Course Narrative: 11am - Patient is a 51-year-old female with PMH of ulcerative colitis, celiac disease, hypertension, migraines, asthma, anxiety/depression presenting with 4 days of abdominal pain, nausea, vomiting with blood, fever. On exam, VSS, mildly tachycardic, afebrile, abdomen tender to palpation in RUC and RLC, positive rebound tenderness, positive Rovsing sign, negative obturator's sign, negative Freire, sign negative psoas sign. Concern for appendicitis versus ulcerative colitis flare vs peptic ulcer. Will reassess after CT abdomen pelvis Labs from 12/14 unremarkable. Plan: Labs, EKG, CT scan of abdomen pelvis GI bleed protocol, UA. Provide a L IV fluids, 4 mg of morphine and 4 mg of Zofran and re-evaluate. Reevaluation(s) Reevaluation #1: - all labs within normal limits. UA revealed leukocytes although negative nitrates. Patient negative for any EtOH. Patient negative for COVID. - patient was still having pain therefore she was given 1 mg of Dilaudid reports symptomatic relief. - Still awaiting CT scan abdomen pelvis. Time: 13:54 Reevaluation #2: CT gi bleed abd pel wo/w IVcon IMPRESSION: 1.? No active evidence of upper GI bleed seen to explain the patient's coffee ground emesis. Close clinical correlation and follow-up evaluation as clinically appropriate is recommended. 2.? Mild intra and extrahepatic ductal dilatation is noted, most consistent with patient's postcholecystectomy state. No definite obstructing stone or mass is noted. - patient reported she would like to go home. And her H&H did not drop from yesterday or today and it has been 24 hours. Therefore will DC home with instructions return if any new or worsening symptoms or symptoms return and to follow-up with PCP/GI. Will treat for UTI. Patient understands agrees with this plan. ? Time: 14:45 MDM - Abdominal Pain Medical Records Attestation: I reviewed the patient's medical records. Lab Data Attestation: I reviewed the patient's lab results. Result diagrams: 12/15/21 11:32 12/15/21 11:32 Labs: Lab Results 12/15/21 12/15/21 12/15/21 Range/Units 11:32 11:32 11:32 WBC 5.6 (4.8-10.8) X10*3/uL RBC 4.23 (4.20-5.50) X10*6/uL Hgb 13.4 (12.0-16.0) g/dl Hct 40.9 (37.0-47.0) % MCV 96.7 (80.0-98.0) fL MCH 31.7 (27.0-33.0) pg MCHC 32.8 (31.0-35.0) g/dl RDW 12.6 (11.0-16.0) % Plt Count 267 (160-400) X10*3/uL MPV 9.5 (9.4-12.3) fL Immature Gran % (Auto) 0.4 (0.0-0.4) % Neut % (Auto) 62.7 (45-73) % Lymph % (Auto) 24.0 (20-40) % [place] % (Auto) 8.6 (2-11) % Eos % (Auto) 3.6 (0-4) % Baso % (Auto) 0.7 (0-2) % Lymph # (Auto) 1.3 (1.2-4.9) X10*3/uL [place] # (Auto) 0.5 (0.1-1.2) X10*3/uL Eos # (Auto) 0.2 (0.0-0.4) X10*3/uL Baso # (Auto) 0.0 (0.0-0.2) X10*3/uL Abs Immat Gran (auto) 0.02 (0.00-0.03) X10*3/uL Absolute Neuts (auto) 3.5 (2.0-8.3) x10*3/uL Absolute Nucleated RBC 0.000 (0.0-0.012) X10*3/uL Nucleated RBC % (auto) 0.0 (0.0-0.2) /100WBC PT 11.4 (10.0-13.1) SEC INR 1.0 (0.9-1.1) Sodium 141 (135-145) mmol/L Potassium 3.8 (3.3-5.1) mmol/L Chloride 103 (96-108) mmol/L Carbon Dioxide 25 (22-29) mmol/L Anion Gap 17 (12-20) BUN 21 H (9-16) mg/dL Creatinine 1.15 (0.5-1.4) mg/dL Estim Creat Clear Calc 52.3 Estimated GFR 50 Random Glucose 94 (60-115) mg/dL Calcium 9.9 (8.4-10.2) mg/dL Magnesium 2.0 (1.6-2.6) mg/dL Total Bilirubin 0.4 (0.0-1.0) mg/dL AST 18 (5-31) U/L ALT 22 (0-31) U/L Alkaline Phosphatase 81 (39-117) U/L Total Protein 6.9 (6.5-8.0) g/dL Albumin 4.3 (3.5-5.0) g/dL Lipase 16 (8-78) U/L Beta HCG, Quant < 2 mIU/mL Urine Color Urine Appearance Urine pH (5.0-9.0) Ur Specific [place] (1.005-1.025) Urine Protein (Neg-Trace) mg/dL Urine Glucose (UA) (Negative) mg/dL Urine Ketones (Negative) mg/dL Urine Blood (Negative) Urine Nitrite (Negative) Ur Leukocyte Esterase (Negative) Urine RBC (0-2) /HPF Urine WBC (0-5) /HPF Ur Squamous Epith Cells (0-2) /HPF Urine Bacteria (None Seen) Hyaline Casts (0-2) /LPF Ethyl Alcohol < 10 mg/dL COVID-19 (CELINA) (Negative) COVID-19 Clin Com 12/15/21 12/15/21 Range/Units 11:48 13:45 WBC (4.8-10.8) X10*3/uL RBC (4.20-5.50) X10*6/uL Hgb (12.0-16.0) g/dl Hct (37.0-47.0) % MCV (80.0-98.0) fL MCH (27.0-33.0) pg MCHC (31.0-35.0) g/dl RDW (11.0-16.0) % Plt Count (160-400) X10*3/uL MPV (9.4-12.3) fL Immature Gran % (Auto) (0.0-0.4) % Neut % (Auto) (45-73) % Lymph % (Auto) (20-40) % [place] % (Auto) (2-11) % Eos % (Auto) (0-4) % Baso % (Auto) (0-2) % Lymph # (Auto) (1.2-4.9) X10*3/uL [place] # (Auto) (0.1-1.2) X10*3/uL Eos # (Auto) (0.0-0.4) X10*3/uL Baso # (Auto) (0.0-0.2) X10*3/uL Abs Immat Gran (auto) (0.00-0.03) X10*3/uL Absolute Neuts (auto) (2.0-8.3) x10*3/uL Absolute Nucleated RBC (0.0-0.012) X10*3/uL Nucleated RBC % (auto) (0.0-0.2) /100WBC PT (10.0-13.1) SEC INR (0.9-1.1) Sodium (135-145) mmol/L Potassium (3.3-5.1) mmol/L Chloride (96-108) mmol/L Carbon Dioxide (22-29) mmol/L Anion Gap (12-20) BUN (9-16) mg/dL Creatinine (0.5-1.4) mg/dL Estim Creat Clear Calc Estimated GFR Random Glucose (60-115) mg/dL Calcium (8.4-10.2) mg/dL Magnesium (1.6-2.6) mg/dL Total Bilirubin (0.0-1.0) mg/dL AST (5-31) U/L ALT (0-31) U/L Alkaline Phosphatase (39-117) U/L Total Protein (6.5-8.0) g/dL Albumin (3.5-5.0) g/dL Lipase (8-78) U/L Beta HCG, Quant mIU/mL Urine Color Yellow Urine Appearance Clear Urine pH 5.5 (5.0-9.0) Ur Specific [place] >= 1.030 H (1.005-1.025) Urine Protein Negative (Neg-Trace) mg/dL Urine Glucose (UA) Negative (Negative) mg/dL Urine Ketones Negative (Negative) mg/dL Urine Blood Negative (Negative) Urine Nitrite Negative (Negative) Ur Leukocyte Esterase Small (1+) H (Negative) Urine RBC 0-2 (0-2) /HPF Urine WBC 6-10 H (0-5) /HPF Ur Squamous Epith Cells >20 (0-2) /HPF Urine Bacteria 2+ (None Seen) Hyaline Casts 0-2 (0-2) /LPF Ethyl Alcohol mg/dL COVID-19 (CELINA) Negative (Negative) COVID-19 Clin Com See Note Imaging Data CT scan abdomen pelvis with IV contrast: Attestation: I personally reviewed and interpreted this imaging study as follows: Radiologist's impression: FINDINGS: LOWER CHEST: Mild linear subsegmental atelectasis in the lung bases bilaterally. LIVER, GALLBLADDER, BILIARY TREE: Liver normal size and attenuation. No focal cystic or solid mass. Hepatic and portal veins patent. Gallbladder surgically absent with several akin seen in the gallbladder fossa. There is mild central intrahepatic ductal dilatation and extrahepatic ductal dilatation. Common bile duct measures 0.8 cm in the pancreatic head. No definite obstructing stone or mass is seen and findings are likely related to the patient's postcholecystectomy state. PANCREAS: Normal. No ductal dilatation, mass, or surrounding stranding. SPLEEN: Normal size and appearance. Splenic vein patent. ADRENAL GLANDS AND KIDNEYS: Adrenal glands normal. Kidneys bilaterally symmetric in size and function. No focal mass, hydronephrosis, nephrolithiasis or perinephric stranding. URETERS AND BLADDER: Ureters decompressed and within normal limits. Bladder partially distended and within normal limits. PELVIC ORGANS: Unremarkable. GASTROINTESTINAL TRACT: There is a nonspecific linear streak of faint hyperdensity seen in the gastric fundus seen on the noncontrast initial series (series 4, image 23). After contrast administration, no active extravasation of contrast is seen in this region or elsewhere in the stomach. Small bowel loops are decompressed and unremarkable with no definite region of acute GI bleed seen. The colon is moderately distended with large amounts of fecal material. No abnormal hyperdensity in the colon is seen. Postcontrast to suspect an acute GI bleed. Appendix in right lower quadrant is not visualized, but no focal inflammatory process is seen in the right lower quadrant. ABDOMINAL WALL: There is a tiny fat-containing umbilical hernia. LYMPHOVASCULAR STRUCTURES: Abdominal aorta normal in caliber without significant atherosclerotic calcification seen. No periaortic collections. The celiac axis, SMA and DEAN are all widely patent. Both renal arteries are patent. No abdominal or pelvic adenopathy or free fluid collection. BONES: S-shaped thoracolumbar scoliosis and mild degenerative disc disease and facet arthropathy at the lumbosacral junction. CT/CT gi bleed abd pel wo/w IVcon IMPRESSION: 1.? No active evidence of upper GI bleed seen to explain the patient's coffee ground emesis. Close clinical correlation and follow-up evaluation as clinically appropriate is recommended. 2.? Mild intra and extrahepatic ductal dilatation is noted, most consistent with patient's postcholecystectomy state. No definite obstructing stone or mass is noted. Critical Care Time Critical Care Time Critical Care Time: Yes Total Critical Care Time: 60 Attestation: I personally attest to this time spent taking care of the patient Discharge Plan Discharge Clinical Impression: UTI (urinary tract infection) Patient Disposition: Home, Self-Care Instructions: Urinary Tract Infection in Women (ED) Prescriptions: New nitrofurantoin monohyd/m-cryst [Macrobid] 100 mg capsule 100 mg PO BID 7 Days Qty: 14 0RF Rx Instructions: must administer with a meal/food ondansetron 4 mg tablet,disintegrating 4 mg PO Q8H Qty: 14 0RF No Action acetaminophen [Tylenol Extra Strength] 500 mg tablet 1,000 mg PO QID PRN (Reason: fever or pain) Qty: 14 0RF ibuprofen 400 mg tablet 400 mg PO Q6H PRN (Reason: pain) Qty: 14 0RF ferrous sulfate 325 mg (65 mg iron) tablet 325 mg PO DAILY Qty: 30 0RF benzonatate 200 mg capsule 200 mg PO TID PRN (Reason: cough) Qty: 30 0RF doxycycline hyclate 100 mg tablet 100 mg PO BID Qty: 20 0RF prednisone 20 mg tablet 40 mg PO DAILY Qty: 10 0RF Referrals: Edie Bee MD [Primary Care Provider] - 3 days Print Language: Mongolian
--- NOTE | 2021-12-15 11:16 | ECG_ITS ---
Test Reason : cp Blood Pressure : / mmHG Vent. Rate : 091 BPM Atrial Rate : 091 BPM P-R Int : 148 ms QRS Dur : 082 ms QT Int : 404 ms P-R-T Axes : 044 -05 045 degrees QTc Int : 496 ms Normal sinus rhythm Prolonged QT Abnormal ECG When compared with ECG of 30-OCT-2021 20:32, Nonspecific ST abnormality is no longer Present QT has lengthened Referred By: Sammie Finney Electronically Signed By:KIRSTIN NEGRO
[2021-12-15] MEDS: 0.9 % Sodium Chloride 1,000 ML 999 ML IVCONT (11:35)
[2021-12-15 11:36] LABS: MANUAL DIFF FLAG NO
[2021-12-15 11:37] LABS: Basophils Percent Auto 0.7 % (0-2); Eosinophils Absolute Auto 0.2 X10*3/uL (0.0-0.4); Eosinophils Percent Auto 3.6 % (0-4); Hematocrit 40.9 % (37.0-47.0); Hemoglobin 13.4 g/dl (12.0-16.0); Imm Gran Abs Auto 0.02 X10*3/uL (0.00-0.03); Imm Gran Pct Auto 0.4 % (0.0-0.4); Lymphocytes Absolute Auto 1.3 X10*3/uL (1.2-4.9); Mean Corpuscular HGB Conc 32.8 g/dl (31.0-35.0); Mean Corpuscular Hemoglobin 31.7 pg (27.0-33.0); Mean Corpuscular Volume 96.7 fL (80.0-98.0); Mean Platelet Volume 9.5 fL (9.4-12.3); Monocytes Absolute Auto 0.5 X10*3/uL (0.1-1.2); Monocytes Percent Auto 8.6 % (2-11); Neutrophils Absolute Auto 3.5 x10*3/uL (2.0-8.3); Neutrophils Percent Auto 62.7 % (45-73); Platelet Count 267 X10*3/uL (160-400); Red Blood Count 4.23 X10*6/uL (4.20-5.50); Red Cell Distribution Width 12.6 % (11.0-16.0); White Blood Count 5.6 X10*3/uL (4.8-10.8)
[2021-12-15 11:39] VITALS: RESP 16
[2021-12-15] MEDS: Morphine Sulfate 4 MG/ML CARTRIDGE IVPUSH (11:39)
[2021-12-15] MEDS: ondansetron HCL 4 MG/2 ML VIAL IVPUSH (11:40)
[2021-12-15 11:42] LABS: Prothrombin Time 11.4 SEC (10.0-13.1)
[2021-12-15 12:02] LABS: Alanine Aminotransferase 22 U/L (0-31); Albumin Level 4.3 g/dL (3.5-5.0); Alkaline Phosphatase 81 U/L (39-117); Anion Gap 17 (12-20); Aspartate Amino Transferase 18 U/L (5-31); Bilirubin Total 0.4 mg/dL (0.0-1.0); Blood Urea Nitrogen 21 mg/dL (9-16); Calcium 9.9 mg/dL (8.4-10.2); Carbon Dioxide 25 mmol/L (22-29); Chloride 103 mmol/L (96-108); Creatinine Clr Calc Pharmacy 52.3; Estimated Glomerular Filt Rate 50; Ethanol < 10 mg/dL; Glucose Random 94 mg/dL (60-115); Lipase 16 U/L (8-78); Potassium 3.8 mmol/L (3.3-5.1); Sodium 141 mmol/L (135-145); Total Protein 6.9 g/dL (6.5-8.0)
[2021-12-15 12:09] LABS: HCG Quantitative < 2 mIU/mL
[2021-12-15 12:23] LABS: COVID-19 Test Negative (Negative); IDNOW Serial# 08D9AD1C
--- NOTE | 2021-12-15 12:32 | PC.NURSE ---
Iv started via ultra sound by ELIZABETH Gavin.
[2021-12-15] MEDS: iohexoL 350 MG/ML 100 ML INFUS..BTL IV (12:55)
[2021-12-15 13:09] VITALS: BP 151/100; PULSE 102; RESP 16; TEMP 36.8; O2SAT 99
[2021-12-15] MEDS: HYDROmorphone HCl 1 MG/ML SYRINGE IVPUSH (13:33)
--- NOTE | 2021-12-15 13:39 | PC.NURSE ---
Pt ambulated to bathroom independently. She complained of increased SOB, dizziness ,light headedness and pain. Pt stat at 99 % on RM air.
[2021-12-15 13:53] LABS: Appearance Urine Clear; Color Urine Yellow; Glucose Urine UA Negative (Negative); Leukocyte Esterase Urine Small (1+) (Negative); Nitrite Urine Negative (Negative); PH 5.5 (5.0-9.0); Specific Gravity - Urine >= 1.030 (1.005-1.025); UMIC TRIGGER UACC YES; Urine Blood Negative (Negative); Urine Ketones Negative (Negative); Urine Protein Negative (Neg-Trace)
[2021-12-15 13:58] LABS: Bacteria Urine 2+ (None Seen); Hyaline Casts Urine 0-2 /LPF (0-2); RBC Urine 0-2 /HPF (0-2); Squamous Epithelial Cell Urine >20 /HPF (0-2); UACC Culture Trigger YES
--- NOTE | 2021-12-15 14:41 | PC.NURSE ---
Pt is resting quietly, respiration is even and non labored.
[2021-12-15 14:44] VITALS: BP 131/82; PULSE 99; RESP 16; TEMP 36.7
[2021-12-15 14:56] VITALS: RESP 16
== END 2021-12-15 15:30 | disposition home or self-care (01) ==
PROVIDERS: Physician Assistant Medical; Emergency Provider Emergency Medicine; PCP Internal Medicine
DX: N39.0 Urinary tract infection, site not specified (principal); R10.13 Epigastric pain; R07.89 Other chest pain; Z79.899 Other long term (current) drug therapy; Z20.822 Contact with and (suspected) exposure to COVID-19
CPT/HCPCS: 36415; 74178; 80053; 81001; 82077; 83690; 83735; 84702; 85025; 85610; 87635; 93005; 96374; 96375; 99284; J1170; J2270; J2405; Q9967

== ENCOUNTER 2021-12-23 16:42 | Emergency (ER) | payer OTHER, SELFPAY ==
--- NOTE | ~2021-12-23 | XR_ITS ---
EXAMINATION: XR CHEST CLINICAL INFORMATION: Chest pain and shortness of breath COMPARISON: CT angiogram chest 10/31/2021, chest radiograph 10/30/2021 TECHNIQUE: 2 views of the chest were obtained. FINDINGS: Heart size normal. Lungs hypoinflated. There is elevated right hemidiaphragm again seen. Right basilar platelike atelectasis is new. No effusions, consolidations or lung masses are seen. Biconvex thoracolumbar scoliosis again noted. XR/XR chest 2V IMPRESSION: New right lower lobe platelike atelectasis.
[2021-12-23 17:20] LABS: MANUAL DIFF FLAG NO
[2021-12-23 17:43] LABS: Basophils Absolute Auto 0.1 X10*3/uL (0.0-0.2); Basophils Percent Auto 0.9 % (0-2); Eosinophils Absolute Auto 0.2 X10*3/uL (0.0-0.4); Eosinophils Percent Auto 3.5 % (0-4); Hematocrit 41.5 % (37.0-47.0); Imm Gran Abs Auto 0.05 X10*3/uL (0.00-0.03); Imm Gran Pct Auto 0.8 % (0.0-0.4); Lymphocytes Absolute Auto 1.2 X10*3/uL (1.2-4.9); Lymphocytes Percent Auto 17.9 % (20-40); Mean Corpuscular HGB Conc 31.3 g/dl (31.0-35.0); Mean Corpuscular Hemoglobin 30.6 pg (27.0-33.0); Mean Corpuscular Volume 97.6 fL (80.0-98.0); Mean Platelet Volume 10.2 fL (9.4-12.3); Monocytes Absolute Auto 0.5 X10*3/uL (0.1-1.2); Monocytes Percent Auto 7.1 % (2-11); Neutrophils Absolute Auto 4.6 x10*3/uL (2.0-8.3); Neutrophils Percent Auto 69.8 % (45-73); Platelet Count 297 X10*3/uL (160-400); Red Blood Count 4.25 X10*6/uL (4.20-5.50); Red Cell Distribution Width 12.4 % (11.0-16.0); White Blood Count 6.6 X10*3/uL (4.8-10.8)
[2021-12-23 17:44] LABS: Alanine Aminotransferase 21 U/L (0-31); Albumin Level 4.4 g/dL (3.5-5.0); Alkaline Phosphatase 82 U/L (39-117); Anion Gap 16 (12-20); Aspartate Amino Transferase 20 U/L (5-31); Bilirubin Total 0.3 mg/dL (0.0-1.0); Blood Urea Nitrogen 14 mg/dL (9-16); Calcium 9.4 mg/dL (8.4-10.2); Carbon Dioxide 23 mmol/L (22-29); Chloride 107 mmol/L (96-108); Estimated Glomerular Filt Rate 49; Glucose Random 91 mg/dL (60-115); Magnesium 2.1 mg/dL (1.6-2.6); Potassium 3.9 mmol/L (3.3-5.1); Sodium 142 mmol/L (135-145); Total Protein 7.1 g/dL (6.5-8.0)
[2021-12-23 17:50] LABS: COVID-19 Test Negative (Negative); IDNOW Serial# 55D5AD1C; Troponin-I High Sensitivity 7.8 ng/L (<3.5-17.0)
[2021-12-23 18:19] VITALS: BP 153/88; PULSE 89; RESP 20; TEMP 37.2; O2SAT 98; BMI 37.5
--- NOTE | 2021-12-23 18:21 | PC.NURSE ---
this rn called over to pt who may have syncopized by people in waiting room. on arrival pt appears to be lying facedown with r arm forward. pt responding immediately to painful stimuli, subsequently verbal stimuli. pt sts she passed out cause she couldnt breathe . pts o2 sat noted at this time to be 99%. pt motivated by this rn and staff to assist up into wheelchair. pt only c/o back pain following the fall. no obvious injury or deformity. other pt in waiting room yelling profanities at this rn while providing aid to fallen pt.
== END 2021-12-23 23:46 | disposition left against medical advice (07) ==
LOC: HO.ED 23:45
PROVIDERS: Physician Assistant Medical; Emergency Provider Emergency Medicine
DX: R07.9 Chest pain, unspecified (principal); J98.11 Atelectasis; R10.31 Right lower quadrant pain; R06.02 Shortness of breath; Z20.822 Contact with and (suspected) exposure to COVID-19
CPT/HCPCS: 71046; 80053; 83735; 84484; 85025; 87635; 99281; 99283

== ENCOUNTER 2021-12-30 18:24 | Emergency (ER) | payer OTHER, SELFPAY ==
--- NOTE | ~2021-12-30 | XR_ITS ---
EXAMINATION: XR CHEST CLINICAL INFORMATION: Chest pain. Shortness of breath. Tachycardia. COMPARISON: Chest x-ray 12/23/2021. CT chest 10/31/2021. TECHNIQUE: Frontal view of the chest was obtained. 8:09 PM FINDINGS: Asymmetric elevation of right diaphragm above the left. Linear atelectasis at the right lung base similar prior studies. No acute airspace disease. No pulmonary vascular congestion, pleural effusion or pneumothorax. XR/XR chest 1V IMPRESSION: Chronic elevation of right diaphragm with chronic platelike atelectasis present at the right lung base.
[2021-12-30 18:58] VITALS: BP 140/58; PULSE 92; RESP 40; TEMP 36.6; O2SAT 95; BMI 43.0
--- NOTE | 2021-12-30 19:01 | ECG_ITS ---
Test Reason : SEPSIS Blood Pressure : / mmHG Vent. Rate : 085 BPM Atrial Rate : 085 BPM P-R Int : 128 ms QRS Dur : 082 ms QT Int : 390 ms P-R-T Axes : -16 -24 028 degrees QTc Int : 464 ms Normal sinus rhythm Nonspecific T wave abnormality Abnormal ECG When compared with ECG of 15-DEC-2021 12:04, Nonspecific T wave abnormality now evident in Inferior leads Inverted T waves have replaced nonspecific T wave abnormality in Anterior leads Referred By: Generic ED Physician Electronically Signed By:KRISTIN NEGRO
[2021-12-30 20:02] LABS: MANUAL DIFF FLAG NO; Mean Platelet Volume 10.2 fL (9.4-12.3); PLT CLUMP 1; SCAN SMEAR FLAG 1
[2021-12-30 20:04] LABS: Basophils Absolute Auto 0.1 X10*3/uL (0.0-0.2); Basophils Percent Auto 0.8 % (0-2); Eosinophils Absolute Auto 0.4 X10*3/uL (0.0-0.4); Eosinophils Percent Auto 4.8 % (0-4); Hematocrit 42.1 % (37.0-47.0); Hemoglobin 13.6 g/dl (12.0-16.0); Imm Gran Abs Auto 0.06 X10*3/uL (0.00-0.03); Imm Gran Pct Auto 0.8 % (0.0-0.4); Lymphocytes Percent Auto 25.1 % (20-40); Mean Corpuscular HGB Conc 32.3 g/dl (31.0-35.0); Mean Corpuscular Hemoglobin 30.9 pg (27.0-33.0); Mean Corpuscular Volume 95.7 fL (80.0-98.0); Monocytes Absolute Auto 0.4 X10*3/uL (0.1-1.2); Monocytes Percent Auto 5.2 % (2-11); Neutrophils Percent Auto 63.3 % (45-73); Red Cell Distribution Width 12.3 % (11.0-16.0)
[2021-12-30 20:20] LABS: Platelet Count 282 X10*3/uL (160-400); White Blood Count 7.9 X10*3/uL (4.8-10.8)
[2021-12-30 20:27] LABS: Anion Gap 18 (12-20); Blood Urea Nitrogen 20 mg/dL (9-16); Calcium 9.7 mg/dL (8.4-10.2); Carbon Dioxide 24 mmol/L (22-29); Chloride 104 mmol/L (96-108); Creatinine Clr Calc Pharmacy 56.2; Estimated Glomerular Filt Rate 54; Glucose Random 98 mg/dL (60-115); Potassium 3.9 mmol/L (3.3-5.1); Sodium 142 mmol/L (135-145)
[2021-12-30 20:35] LABS: Troponin-I High Sensitivity 5.9 ng/L (<3.5-17.0)
--- OUTSIDE RECORDS SUMMARY | 2021-12-30 21:46 | XMS_ITS | Continuity of Care Document ---
:1970 Author Organization [facility] Address [address] [place] [address]- Care Team Providers Name Role Phone Sylvain FAITHNasima Primary Care Physician Encounter [facility] Date(s): 10/09/20 - 10/09/[address] [address]- Discharge Disposition: A-D/C Home Attending Physician: Yakov Bonilla MD Admitting Physician: Yakov Bonilla MD Referring Physician: Not on Staff, Referring MD Allergies, Adverse Reactions, Alerts Substance Reaction Severity Status sulfADIAZINE Rash Active droperidol Anaphylactic reaction Persistent Severe Active penicillins Rash Active Toradol Active Keflex Rash Active Diamox1 C/O: itching Persistent Moderate Active Glutens rash Active 1itchy Immunizations Given and Recorded Vaccine Date Status Refusal Reason tetanus/diphtheria/pertussis, acel(Tdap) 08/16/20 Given tetanus/diphtheria/pertussis, acel(Tdap)1 02/19/13 Record ed influenza virus vaccine, inactivated 03/31/19 Given influenza virus vaccine, inactivated 12/04/17 Recorded pneumococcal 23-valent vaccine2 08/28/15 Recorded Not Given Vaccine Date Status Refusal Reason pneumococcal 23-valent vaccine3 01/04/18 Not Given Patient Refuses 1Result Comment: [05/03/2018] [id number] Comment: [05/03/2018] [id number] Note: pt stated she did not want to receive vaccine today, may want later Medications albuterol-ipratropium 3 mg-0.5 mg/3 ml inhalation solution 3 mL, Inhalation, 4 times a day, # 360 mL, 1 Refills, Maintenance, 12/13/19 8:19:00 EDT, Inhalation Solution, [facility], 3 mL Inhalation 4 times a day, 141, cm, 12/07/19 12:18:00 EDT, Height, 100.5, kg, 12/05/19 3:32:00 EDT, Dry Weight Start Date: 12/13/19 Status: OrderedApriso 0.375 g oral capsule, extended release 4 capsule = 1.5 Gm, By Mouth, Daily in AM, # 120 capsule, 4 Refills, Maintenance, 09/07/20 8:50:00 EDT, CR Capsule, [id number], Partial fill upon patient request if the prescription is for a schedule II opioid drug., 142, cm, 09/06/20 20:46:00... Start Date: 09/07/20 Stop Date: 02/04/21 Status: OrderedbuPROPion 150 mg/24 hours (XL) oral tablet, extended release 1 tablet = 150 mg, By Mouth, Every 24 hours, # 90 tablet, 0 Refills, Maintenance, 11/17/19 4:25:00 EDT, ER Tablet Start Date: 11/17/19 Status: Orderedcetirizine 10 mg oral tablet 1 tablet, By Mouth, Daily, # 90 tablet, 1 Refills, Maintenance, 12/23/19 16:02:00 EDT, [id number], 142, cm, 12/15/19 7:46:00 EDT, Height, 91, kg, 12/13/19 15:07:00 EDT, Dry Weight Start Date: 12/23/19 Status: OrderedclonazePAM 1 mg oral tablet 1 tablet = 1 mg, By Mouth, 3 times a day, # 6 tablet, 0 Refills, Maintenance, 09/23/20 10:27:00 EDT,Tablet, Partial fill upon patient request if the prescription is for a schedule II opioid drug. Start Date: 09/23/20 Stop Date: 09/25/20 Status: OrderedDaily-Madi with Iron oral tablet 1 tablet, By Mouth, Daily, # 90 tablet, 1 Refills, Maintenance, 12/02/19 14:20:00 EDT, [id number], 1 tablet By Mouth Daily, 142, cm, 11/23/19 23:52:00 EDT, Height, 90.7, kg, 10/11/19 1:24:00 EDT, Dry Weight Start Date: 12/02/19 Status: OrderedDiamox Sequels 500 mg oral capsule, extended release 500 mg, By Mouth, Daily, Refills 0, Maintenance, 02/29/20 9:11:00 EST, Partial fill upon patient request if the prescription is for a schedule II opioid drug. Start Date: 02/29/20 Status: Ordereddicyclomine 10 mg oral capsule 1 capsule = 10 mg, By Mouth, 3 times a day, PRN as needed for abdominal cramps, # 90 capsule, 3 Refills, Maintenance, 09/28/20 7:41:00 EDT, [facility]/pharmacy #[id number], 143, cm, 09/20/20 19:45:00 EDT, Height, 106.6, kg, 09/20/20 19:45:00 EDT, Dry Weight Start Date: 09/28/20 Stop Date: 01/26/21 Status: Orderedduloxetine 60 mg oral enteric coated capsule 1 capsule, By Mouth, Daily, # 30 capsule, 0 Refills, Maintenance, 11/21/19 12:43:00 EDT, [id number], 142, cm, 11/16/19 8:05:00 EDT, Height, 90.7, kg, 10/11/19 1:24:00 EDT, Dry Weight Start Date: 11/21/19 Status: OrderedDupixent 300 mg/2 mL subcutaneous solution 0 Refills, Maintenance, 11/17/19 4:27:00 EDT Start Date: 11/17/19 Status: Orderedfluticasone 50 mcg/inh nasal spray 1 sprays, Nares, Both, 2 times a day, 0 Refills, Maintenance, 11/17/19 4:21:00 EDT, [place] Start Date: 11/17/19 Status: Orderedlamotrigine 25 mg oral tablet 25 mg, 1, tablet, By Mouth, 2 times a day, # 60 tablet, Refills 0, Maintenance, 11/17/19 4:23:00 EDT Start Date: 11/17/19 Status: OrderedLasix 20 mg oral tablet 20 mg, 1, tablet, By Mouth, Daily, # 7 tablet, Refills 0, Tot. Refills 0, Maintenance, 07/15/20 22:03:00 EDT, Route to Pharmacy Electronically, [facility]/pharmacy #[id number], Partial fill upon patient request if the prescription is for a schedule II opioid drug.... Start Date: 07/15/20 Stop Date: 07/22/20 Status: OrderedLatuda 40 mg oral tablet 1 tablet = 40 mg, By Mouth, Daily, # 30 tablet, 0 Refills, Maintenance, 11/17/19 4:22:00 EDT, Tablet Start Date: 11/17/19 Status: Orderedlevothyroxine 0.137 mg oral tablet 1 tablet, By Mouth, Daily, # 90 tablet, 0 Refills, Maintenance, 01/30/20 14:58:00 EST, [facility] STORE [id number], 143, cm, 01/14/20 22:55:00 EDT, Height, 101, kg, 01/14/20 22:55:00 EDT, Dry Weight Start Date: 01/30/20 Status: Orderedlidocaine 4% topical film 1 patch, Topically, Daily, # 30 patch, 0 Refills, Maintenance, 01/06/20 10:41:00 EDT, Film, [facility] 3, 142, cm, 01/06/20 8:20:00 EDT, Height, 103, kg, 01/04/20 18:55:00 EDT, Dry Weight Start Date: 01/06/20 Stop Date: 02/05/20 Status: Orderedmagnesium oxide 400 mg (240 mg elemental magnesium) oral tablet 1 tablet, By Mouth, Daily, # 90 tablet, 3 Refills, Acute, 04/10/20 10:44:00 EST, [facility] STORE [id number], 90, TAKE 1 TABLET BY MOUTH EVERY DAY, 143, cm, 03/27/20 7:23:00 EST, Height, 101, kg, 01/14/20 22:55:00EDT, Dry Weight Start Date: 04/10/20 Status: Orderedmontelukast 10 mg oral tablet 10 mg, 1, tablet, By Mouth, Daily in PM, # 30 tablet, Refills 0, Maintenance, 11/17/19 4:22:00 EDT Start Date: 11/17/19 Status: OrderedMultivitamin Tablets Multivitamin Tablets, See Instructions, # 100 each, Refills 2, Tot. Refills 2, Maintenance, Take 1 tablet by mouth daily, 04/11/20 12:26:00 EST, Supply, 143, cm, 03/27/20 7:23:00 EST, Height, 101, kg, 01/14/20 22:55:00 EDT, Dry Weight Start Date: 04/11/20 Status: Orderedondansetron 4 mg oral tablet 1 tablet = 4 mg, By Mouth, Every 8 hours, PRN Nausea & Vomiting, # 10 tablet, 0 Refills, Maintenance, 12/19/19 13:39:00 EDT, Tablet, [facility]/pharmacy #[id number], 142, cm, 12/15/19 7:46:00 EDT, Height, 91, kg, 12/13/19 15:07:00 EDT, Dry Weight Start Date: 12/19/19 Status: Orderedpantoprazole 20 mg oral delayed release tablet TAKE 1 TABLET BY MOUTH TWICE DAILY Start Date: 01/16/20 Status: Orderedprazosin 5 mg oral capsule 5 mg, 1, capsule, By Mouth, 3 times a day, # 90 capsule, Refills 0, Maintenance, 11/17/19 4:22:00 EDT Start Date: 11/17/19 Status: Orderedpregabalin 75 mg oral capsule 1 capsule = 75 mg, By Mouth, 2 times a day, # 60 capsule, 3 Refills, Maintenance, 01/10/20 7:53:00 EDT, Capsule, [facility]/pharmacy #[id number], 142, cm, 01/08/20 22:31:00 EDT, Height, 100, kg, 01/08/20 22:31:00 EDT, Dry Weight Start Date: 01/10/20 Status: OrderedtraZODone 150 mg oral tablet 1 tablet = 150 mg, By Mouth, Daily at bedtime, # 30 tablet, 0 Refills, Maintenance, 11/17/19 4:23:00EDT, Tablet Start Date: 11/17/19 Status: OrderedTrelegy Ellipta 1 puff, Inhalation, Daily, 0 Refills, Maintenance, 06/27/20 14:48:00 EDT, Partial fill upon patient request if the prescription is for a schedule II opioid drug. Start Date: 06/27/20 Status: OrderedTrelegy Ellipta inhalation powder 1 puffs, Inhalation, Daily, at the same time every day, # 60 each, 0 Refills, Maintenance, 06/30/20 19:39:00 EDT, Powder, Partial fill upon patient request if the prescription is for a schedule II opioid drug. Start Date: 06/30/20 Status: OrderedTylenol 325 mg oral tablet 650 mg, 2, tablet, By Mouth, Every 4 hours, # 50 tablet, Refills 0, Tot. Refills 0, Maintenance, 01/06/20 10:19:00 EDT, Print Requisition, 142, cm, 01/06/20 8:20:00 EDT, Height, 103, kg, 01/04/20 18:55:00 EDT, Dry Weight Start Date: 01/06/20 Status: Ordered Problem List Condition Effective Dates Status Health Status Informant Bloating(Confirmed) Active Gait abnormality(Confirmed) Active Anemia(Confirmed) Active Asthma(Confirmed) Active Pseudotumor cerebri(Confirmed) Active Binge eating disorder, severe, in Active partial remission(Confirmed) Celiac disease(Confirmed) Active Chronic back pain(Confirmed) Active Constipation(Confirmed) Active Cough(Confirmed) Active Dyspnea(Confirmed) Active Shortness of breath(Confirmed) Active Fibromyalgia(Confirmed) Active GERD (gastroesophageal reflux Active disease)(Confirmed) History of back injury(Confirmed) Active History of self mutilation(Confirmed) Active Headache(Confirmed) Active HTN (hypertension)(Confirmed) Active Hypothyroidism(Confirmed) Active FLAQUITA (acute kidney injury)(Confirmed) Active Claudication(Confirmed) Active Lymphocytic colitis(Confirmed) Active Anemia, macrocytic(Confirmed) Active Major depression(Confirmed) Active Migraines(Confirmed) Active Anxiety and depression(Confirmed) Active Mood disorder(Confirmed) Active Nausea(Confirmed) Active TRISTAN on CPAP(Confirmed) Active Bilateral leg pain(Confirmed) Active Paresthesias(Confirmed) Active Pericardial effusion(Confirmed) Active Pleural effusion(Confirmed) Active PTSD (post-traumatic stress Active disorder)(Confirmed) Leg swelling(Confirmed) Active Ulcerative colitis(Confirmed) Active Vital Signs Most recent to oldest [Reference Range]: 1 2 Height 135 cm 135 cm (10/09/20 7:10 PM) (10/09/20 4:02 PM) Weight 107 kg 107 kg (10/09/20 7:10 PM) (10/09/20 4:02 PM) Oxygen Saturation [94-100 %] 98 % 100 % (10/09/20 7:10 PM) (10/09/20 4:02 PM) Pulse Rate [55-90 bpm] 71 bpm 76 bpm (10/09/20 7:10 PM) (10/09/20 4:02 PM) Body Mass Index [18.5-24.99] 58.71 *>HHI* (10/09/20 7:10 PM) Blood Pressure [90-138/55-84 mm Hg] 132/79 mm Hg 125/ 65 mm Hg (10/09/20 7:10 PM) (10/09/20 4:02 PM) Respiratory Rate [16-30 br/min] 18 br/min 20 br/mi n (10/09/20 7:10 PM) (10/09/20 4:02 PM) Temperature [96.8-100.4 DegF] 98.7 DegF (10/09/20 4:02 PM) Mode of Delivery (Oxygen) Room air Room air (10/09/20 7:10 PM) (10/09/20 4:02 PM) Blood pressure sites Arm, right (10/09/20 7:10 PM) Temperature Route Oral (10/09/20 4:02 PM) Dry Weight 107 kg 107 kg (10/09/20 7:10 PM) (10/09/20 4:02 PM) Social History Social History Type Response Smoking Status Never (less than 100 in life time) entered on: 01/01/20 Sex
--- OUTSIDE RECORDS SUMMARY | 2021-12-30 21:46 | XMS_ITS | Continuity of Care Document ---
:1970 Author Organization [facility] Address [address] [address]- Care Team Providers Name Role Phone Nasima Narayan DO Primary Care Physician [place] [facility] [place]20 [facility] [address] [address] Attending Physician: Renny Sykes MD Admitting Physician: Renny Sykes MD Referring Physician: Nasima Narayan DO Allergies, Adverse Reactions, Alerts Substance Reaction Severity [...] Not Given Patient Refuses 1Result Comment: [05/03/2018] [id number] Comment: [05/03/2018] [id number] Note: pt stated she did not want to receive vaccine today, may want later Medications albuterol-ipratropium 3 mg-0.5 mg/3 ml inhalation solution 3 mL, Inhalation, 4 times a day, # 360 mL, 1 Refills, Maintenance, 12/13/19 8:19:00 EDT, Inhalation Solution, [facility], 3 mL Inhalation 4 times a day, 141, cm, 12/07/19 12:18:00 EDT, Height, 100.5, kg, 12/05/19 3:32:00 EDT, Dry Weight Start Date: 12/13/19 Status: OrderedApriso 0.375 g oral capsule, extended release 4 capsule = 1.5 Gm, By Mouth, Daily in AM, # 120 capsule, 4 Refills, Maintenance, 12/04/20 10:31:00 EDT, CR Capsule, [id number], Partial fill upon patient request if the prescription is for a schedule II opioid drug., 142, cm, 12/02/20 20:36:0... Start Date: 12/04/20 Stop Date: 05/03/21 Status: OrderedbuPROPion 150 mg/24 hours (XL) oral [...] capsule, 3 Refills, Maintenance, 09/28/20 7:41:00 EDT, [facility]/pharmacy #[id number], 143, cm, 09/20/20 19:45:00 EDT, Height, 106.6, kg, 09/20/20 19:45:00 EDT, Dry Weight Start Date: 09/28/20 Stop Date: 01/26/21 Status: Orderedduloxetine 60 mg oral enteric coated capsule 1 capsule, By Mouth, Daily, # 30 capsule, 0 Refills, Maintenance, 11/21/19 12:43:00 EDT, [facility] STORE [id number], 142, cm, 11/16/19 8:05:00 EDT, Height, 90.7, kg, 10/11/19 1:24:00 EDT, Dry Weight Start Date: 11/21/19 Status: OrderedDupixent 300 mg/2 mL subcutaneous solution Every 14 days, 0 Refills, Maintenance, 11/17/19 4:27:00 EDT Start Date: 11/17/19 Status: Orderedfluticasone 50 mcg/inh nasal spray 1 sprays, Nares, Both, 2 times a day, 0 Refills, Maintenance, 11/17/19 4:21:00 EDT, [place] Start Date: 11/17/19 Status: Orderedlamotrigine 25 mg oral tablet 25 mg, 1, tablet, By Mouth, 2 times a day, # 60 tablet, Refills 0, Maintenance, 11/17/19 4:23:00 EDT Start Date: 11/17/19 Status: OrderedLatuda 40 mg oral tablet 1 tablet = 40 mg, By Mouth, Daily, # 30 tablet, 0 Refills, Maintenance, 11/17/19 4:22:00 EDT, Tablet Start Date: 11/17/19 Status: Orderedlevothyroxine 0.137 mg oral tablet 1 tablet, By Mouth, Daily, # 90 tablet, 0 Refills, Maintenance, 01/30/20 14:58:00 EST, [id number], 143, cm, 01/14/20 22:55:00 EDT, Height, 101, kg, 01/14/20 22:55:00 EDT, Dry Weight Start Date: 01/30/20 Status: Orderedlidocaine 4% topical film 1 patch, Topically, Daily, # 30 patch, 0 Refills, Maintenance, 01/06/20 10:41:00 EDT, Film, [facility] 3, 142, cm, 01/06/20 8:20:00 EDT, Height, 103, kg, 01/04/20 18:55:00 EDT, Dry Weight Start Date: 01/06/20 Stop Date: 02/05/20 Status: Orderedlidocaine 5% topical film 1 patch, Topically, Daily, PRN Pain , Mild, remove after 12 hours, # 13 each, 0 Refills, Maintenance, 11/04/20 23:32:00 EDT, Film, [facility]/pharmacy #[id number], Partial fill upon patient request if the prescription is for a schedule II opioid drug., 1 patch Top... Start Date: 11/04/20 Status: Orderedmagnesium oxide 400 mg (240 mg elemental magnesium) oral tablet 1 tablet, By Mouth, Daily, # 90 tablet, 3 Refills, Acute, 04/10/20 10:44:00 EST, [facility], 90, TAKE 1 TABLET BY MOUTH EVERY DAY, 143, cm, 03/27/20 7:23:00 EST, Height, 101, kg, 01/14/20 22:55:00EDT, Dry Weight Start Date: 04/10/20 Status: Orderedmontelukast 10 mg oral tablet 10 mg, 1, tablet, By Mouth, Daily in PM, # 30 tablet, Refills 0, Maintenance, 11/17/19 4:22:00 EDT Start Date: 11/17/19 Status: Orderedondansetron 4 mg oral tablet 1 tablet = 4 mg, By Mouth, Every 8 hours, PRN Nausea & Vomiting, # 10 tablet, 0 Refills, Maintenance, 12/19/19 13:39:00 EDT, Tablet, [facility]/pharmacy #[id number], 142, cm, 12/15/19 7:46:00 EDT, Height, 91, kg, 12/13/19 15:07:00 EDT, Dry Weight Start Date: 12/19/19 Status: Orderedpantoprazole 20 mg oral delayed release tablet TAKE 1 TABLET BY MOUTH TWICE DAILY Start Date: 01/16/20 Status: OrderedPerformix P5 Performix P5, See Instructions, # 180 Gm, Refills 1, Tot. Refills 1, Maintenance, Ketamine 10% Baclofen 2% Cyclobenzaprine 2% Diclofenac 3% Gabapentin 10% Bupivicaine 2% in Liposomal cream, 11/20/20 15:41:00 EDT, [place] Start Date: 11/20/20 Status: Orderedprazosin 5 mg oral capsule 5 mg, 1, capsule, By Mouth, 3 times a day, # 90 capsule, Refills 0, Maintenance, 11/17/19 4:22:00 EDT Start Date: 11/17/19 Status: OrderedtraZODone 150 mg oral tablet 1 tablet = 150 mg, By Mouth, Daily at bedtime, # 30 tablet, 0 Refills, Maintenance, 11/17/19 4:23:00EDT, Tablet Start Date: 11/17/19 Status: OrderedTrelegy Ellipta 1 puff, Inhalation, Daily, 0 Refills, Maintenance, 06/27/20 14:48:00 EDT, Partial fill upon patient request if the prescription is for a schedule II opioid drug. Start Date: 06/27/20 Status: Ordered Problem List Condition Effective Dates [...] disorder)(Confirmed) Leg swelling(Confirmed) Active Ulcerative colitis(Confirmed) Active Social History Social History Type Response Smoking Status Never (less than 100 in life time) entered on: 01/01/20 Sex
--- OUTSIDE RECORDS SUMMARY | 2021-12-30 21:46 | XMS_ITS | Continuity of Care Document ---
:1970 Author Organization [facility] Address [address] [place] [address]- Care Team Providers Name Role Phone Nasima Narayan DO Primary Care Physician En[place] [facility] [place](s): 05/17/20 - 06/16/[address] [address]- Attending Physician: Vinny Cornejo Admitting Physician: Vinny Cornejo Referring Physician: AdmtrVinny Allergies, Adverse Reactions, Alerts Substance Reaction Severity Status sulfADIAZINE Rash Active droperidol Anaphylactic reaction Persistent Severe Active penicillins Rash Active Toradol Active Keflex Rash Active Diamox1 C/O: itching Persistent Moderate Active Glutens rash Active 1itchy Immunizations Given and Recorded Vaccine Date Status Refusal Reason influenza virus vaccine, inactivated 03/31/19 Given influenza virus vaccine, inactivated 12/04/17 Recorded pneumococcal 23-valent vaccine1 08/28/15 Recorded tetanus/diphtheria/pertussis, acel(Tdap)3 02/19/13 Record ed Not Given Vaccine Date Status Refusal Reason pneumococcal 23-valent vaccine2 01/04/18 Not Given Patient Refuses 1Result Comment: [05/03/2018] [id number] Comment: [05/03/2018] [id number] Note: pt stated she did not want to receive vaccine today, may want later Medications albuterol-ipratropium 3 mg-0.5 mg/3 ml inhalation solution 3 mL, Inhalation, 4 times a day, # 360 mL, 1 Refills, Maintenance, 12/13/19 8:19:00 EDT, Inhalation Solution, [facility], 3 mL Inhalation 4 times a day, 141, cm, 12/07/19 12:18:00 EDT, Height, 100.5, kg, 12/05/19 3:32:00 EDT, Dry Weight Start Date: 12/13/19 Status: Orderedbenzonatate 100 mg oral capsule 1 capsule = 100 mg, By Mouth, 3 times a day, PRN as needed for cough, for 5 days, # 15 capsule, 0 Refills, Acute 06/21/20 0:32:00 EDT, 06/16/20 0:32:00 EDT, Capsule, [facility]/pharmacy #[id number], Partial fill upon patient request if the prescription is for a sc... Start Date: 06/16/20 Stop Date: 06/21/20 Status: OrderedBreo Ellipta 200 mcg-25 mcg/inh inhalation powder 1 puffs, Inhalation, Daily, 0 Refills, Maintenance, 11/17/19 4:22:00 EDT, Powder Start Date: 11/17/19 Status: OrderedbuPROPion 150 mg/24 hours (XL) oral tablet, extended release 1 tablet = 150 mg, By Mouth, Every 24 hours, # 90 tablet, 0 Refills, Maintenance, 11/17/19 4:25:00 EDT, ER Tablet Start Date: 11/17/19 Status: Orderedcalcium carbonate 500 mg (200 mg elemental calcium) oral tablet, chewable 500 mg, 1, tablet, Chew, 3 times a day, # 90 tablet, Refills 0, Tot. Refills 0, Maintenance, 01/06/20 10:18:00 EDT, Route to Pharmacy Electronically, [facility], 142, cm, 01/06/20 8:20:00EDT, Height, 103, kg, 01/04/20 18:55:00 EDT, Dry... Start Date: 01/06/20 Status: Orderedcetirizine 10 mg oral tablet 1 tablet, By Mouth, Daily, # 90 tablet, 1 Refills, Maintenance, 12/23/19 16:02:00 EDT, [facility]/pharmacy #[id number], 142, cm, 12/15/19 7:46:00 EDT, Height, 91, kg, 12/13/19 15:07:00 EDT, Dry Weight Start Date: 12/23/19 Status: OrderedclonazePAM 1 mg oral tablet 1 tablet = 1 mg, By Mouth, 3 times a day, 0 Refills, Maintenance, 11/17/19 9:37:00 EDT, Tablet Start Date: 11/17/19 Status: OrderedDaily-Madi with Iron oral tablet 1 tablet, By Mouth, Daily, # 90 tablet, 1 Refills, Maintenance, 12/02/19 14:20:00 EDT, [facility]/pharmacy #[id number], 1 tablet By Mouth Daily, 142, cm, 11/23/19 23:52:00 EDT, Height, 90.7, kg, 10/11/19 1:24:00 EDT, Dry Weight Start Date: 12/02/19 Status: OrderedDiamox Sequels 500 mg oral capsule, extended release 500 mg, By Mouth, Daily, Refills 0, Maintenance, 02/29/20 9:11:00 EST, Partial fill upon patient request if the prescription is for a schedule II opioid drug. Start Date: 02/29/20 Status: Orderedduloxetine 60 mg oral enteric coated capsule 1 capsule, By Mouth, Daily, # 30 capsule, 0 Refills, Maintenance, 11/21/19 12:43:00 EDT, [facility] STORE [id number], 142, cm, 11/16/19 8:05:00 EDT, Height, 90.7, kg, 10/11/19 1:24:00 EDT, Dry Weight Start Date: 11/21/19 Status: OrderedDupixent 300 mg/2 mL subcutaneous solution 0 Refills, Maintenance, 11/17/19 4:27:00 EDT Start Date: 11/17/19 Status: Orderedfluticasone 50 mcg/inh nasal spray 1 sprays, Nares, Both, 2 times a day, 0 Refills, Maintenance, 11/17/19 4:21:00 EDT, [place] Start Date: 11/17/19 Status: Orderedlamotrigine 25 mg [...] tablet, 0 Refills, Maintenance, 01/30/20 14:58:00 EST, [facility] ST[id number], 143, cm, 01/14/20 22:55:00 EDT, Height, 101, kg, 01/14/20 22:55:00 EDT, Dry Weight Start Date: 01/30/20 Status: Orderedlidocaine 4% topical film 1 patch, Topically, Daily, # 30 patch, 0 Refills, Maintenance, 01/06/20 10:41:00 EDT, Film, [facility] 3, 142, cm, 01/06/20 8:20:00 EDT, Height, 103, kg, 01/04/20 18:55:00 EDT, Dry Weight Start Date: 01/06/20 Stop Date: 02/05/20 Status: Orderedmagnesium oxide 400 mg (240 mg elemental magnesium) oral tablet 1 tablet, By Mouth, Daily, # 90 tablet, 3 Refills, Acute, 04/10/20 10:44:00 EST, [facility] STORE [address], 90, TAKE 1 TABLET BY MOUTH EVERY DAY, 143, cm, 03/27/20 7:23:00 EST, Height, 101, kg, 01/14/20 22:55:00EDT, Dry Weight Start Date: 04/10/20 Status: Orderedmeloxicam 7.5 mg oral tablet 1 tablet, By Mouth, Daily, # 30 tablet, 0 Refills, Maintenance, 11/23/19 18:18:00 EDT, [id number], 142, cm, 11/16/19 8:05:00 EDT, Height, 90.7, kg, 10/11/19 1:24:00 EDT, Dry Weight Start Date: 11/23/19 Status: Orderedmontelukast 10 mg oral tablet 10 [...] 0 Refills, Maintenance, 12/19/19 13:39:00 EDT, Tablet, [facility]/pharmacy #[id number], 142, cm, 12/15/19 7:46:00 EDT, [...] 3 Refills, Maintenance, 01/10/20 7:53:00 EDT, Capsule, [facility]/pharmacy #[id number], 142, cm, 01/08/20 22:31:00 EDT, Height, 100, kg, 01/08/20 22:31:00 EDT, Dry Weight Start Date: 01/10/20 Status: OrderedSpiriva = 18 mcg, Inhalation, Daily, 0 Refills, Maintenance, 11/18/19 14:38:00 EDT Start Date: 11/18/19 Status: OrderedtraZODone 150 mg oral tablet 1 tablet = 150 mg, By Mouth, Daily at bedtime, # 30 tablet, 0 Refills, Maintenance, 11/17/19 4:23:00EDT, Tablet Start Date: 11/17/19 Status: OrderedTylenol 325 mg oral tablet 650 mg, 2, tablet, By Mouth, Every 4 hours, # 50 tablet, Refills 0, Tot. Refills 0, Maintenance, 01/06/20 10:19:00 EDT, Print Requisition, 142, cm, 01/06/20 8:20:00 EDT, Height, 103, kg, 01/04/20 18:55:00 EDT, Dry Weight Start Date: 01/06/20 Status: OrderedZofran 4 mg oral tablet 1 tablet = 4 mg, By Mouth, Every 8 hours, PRN as needed for nausea/vomiting, # 15 tablet, 0 Refills,Maintenance, 06/08/20 22:23:00 EST, Tablet, [facility]/pharmacy #[id number], Partial fill upon patient request ifthe prescription is for a schedule II opioid drug... Start Date: 06/08/20 Status: OrderedZofran 4 mg oral tablet 1 tablet = 4 mg, By Mouth, Every 8 hours, PRN as needed for nausea/vomiting, # 8 tablet, 0 Refills, Maintenance, 06/06/20 13:07:00 EST, Tablet, [facility]/pharmacy #[id number], Partial fill upon patient request if the prescription is for a schedule II opioid drug.... Start Date: 06/06/20 Stop Date: 06/08/20 Status: Ordered Problem List Condition Effective Dates [...]
--- OUTSIDE RECORDS SUMMARY | 2021-12-30 21:46 | XMS_ITS ---
:1970 Author Care Team Providers Name Role Phone GUTIERREZ RENTERIA MD Primary Care Provider [phone] Allergies Code Code System Name Reaction Severity Status Onset 3648 RxNorm Droperidol ? ? Active ? [id number] RxNorm Keflex ? ? Active ? Penicillins ? ? Active ? Sulfa (Sulfonamide ? ? Active ? Antibiotics) Medications Name Status Start Date Stop Date ? ? albuterol sulfate HFA 90 mcg/actuation aerosol inhaler Active ? Not available Antacid-Antigas 200 mg-200 mg-20 mg/5 mL oral suspension Active ? Not available Apriso Active ? Not available azithromycin 250 mg tablet Active ? Not a vailable TAKE 2 TABLETS BY MOUTH DAILY FOR FIRST DAY THEN 1 TABLET DAILY FOR 4 DAYS azithromycin 500 mg tablet Completed ? 09/26 bisacodyl 5 mg tablet,delayed release Active ? Not available Breo Ellipta 200 mcg-25 mcg/dose powder for inhalation Active ? Not available bupropion HCl SR 100 mg tablet,12 hr sustained-release Active ? Not available bupropion HCl SR 150 mg tablet,12 hr sustained-release Active ? Not available bupropion HCl SR 200 mg tablet,12 hr sustained-release Active ? Not available bupropion HCl XL 150 mg 24 hr tablet, extended release Active ? Not available TAKE 1 TABLET BY MOUTH EVERY DAY IN THE MORNING DIRECTED cetirizine 10 mg tablet Active ? Not avai lable cimetidine 200 mg tablet Active ? Not louann ilable TAKE 1 TABLET BY MOUTH EVERY DAY clindamycin HCl 150 mg capsule Completed ? 0 09/27/2019 clonazepam 1 mg tablet Active ? Not avail able Daily Vites/Iron tablet Active ? Not avai lable Daily-Madi tablet Active ? Not available diclofenac 1 % topical gel Active ? Not a vailable dicyclomine 10 mg capsule Active ? Not av ailable diphenhydramine 25 mg tablet Active ? Not available 50 mg PO administered on scene. Time administered: 16:53 divalproex 250 mg tablet,delayed release Active ? Not available divalproex 500 mg tablet,delayed release Active ? Not available divalproex ER 250 mg tablet,extended release 24 hr Active ? Not available doxycycline hyclate 100 mg capsule Completed ? 09/27/2019 duloxetine 60 mg capsule,delayed release Active ? Not available Dupixent 300 mg/2 mL subcutaneous syringe Active ? Not available Emgality Pen 120 mg/mL subcutaneous pen injector Active ? Not available ferrous sulfate 325 mg (65 mg iron) tablet,delayed Active ? Not available release fluticasone propionate 50 mcg/actuation nasal Active ? Not available spray,suspension furosemide 20 mg tablet Active ? Not avai lable Gavilyte-C 240 gram-22.72 gram-6.72 gram-5.84 gram oral Active ? Not available solution lactulose 10 gram/15 mL oral solution Active ? Not available lamotrigine 25 mg tablet Active ? Not louann ilable Latuda 20 mg tablet Active ? Not availabl e levothyroxine 125 mcg tablet Active ? Not available levothyroxine 137 mcg tablet Active ? Not available Linzess 290 mcg capsule Active ? Not avai lable Lyrica 150 mg capsule Active ? Not availa ble magnesium citrate oral solution Active ? Not available TAKE 296 MLS BY MOUTH DAILY NEEDED FOR CONSTIPATION magnesium oxide 400 mg (241.3 mg magnesium) tablet Active ? Not available meloxicam 7.5 mg tablet Active ? Not avai lable mesalamine ER 0.375 gram capsule,extended release 24 hr Active ? Not available metoclopramide 10 mg tablet Active ? Not available montelukast 10 mg tablet Active ? Not louann ilable naproxen 375 mg tablet Active ? Not avail able nystatin 100,000 unit/mL oral suspension Active ? Not available ondansetron 4 mg disintegrating tablet Active ? Not available DISSOLVE 1 TABLET IN MOUTH 3 TIMES A DA Y FOR 5 DAYS NEEDED FOR NAUSEA AND VOMITING ondansetron HCl 4 mg tablet Active ? Not available Pain Relief Extra Strength 500 mg tablet Active ? Not available pantoprazole 20 mg tablet,delayed release Active ? Not available prazosin 5 mg capsule Active ? Not availa ble prednisone 20 mg tablet Active ? Not avai lable pregabalin 75 mg capsule Active ? Not louann ilable promethazine 25 mg rectal suppository Active ? Not available UNWRAP & INSERT 1 SUPPOSITORY RECTALLY TWICE A DAY NEEDED FOR NAUSEA AND VOMITING promethazine-DM 6.25 mg-15 mg/5 mL oral syrup Active ? Not available TAKE 5 MLS BY MOUTH EVERY 6 HOURS NEEDED FOR COUGH Purelax 17 gram/dose oral powder Active ? Not available quetiapine 100 mg tablet Active ? Not louann ilable quetiapine 200 mg tablet Active ? Not louann ilable quetiapine 300 mg tablet Active ? Not louann ilable quetiapine 50 mg tablet Active ? Not avai lable ranitidine 150 mg capsule Active ? Not av ailable Senna Plus 8.6 mg-50 mg tablet Active ? N ot available simethicone 80 mg chewable tablet Active ? Not available Spiriva Respimat 1.25 mcg/actuation solution for Active ? Not available inhalation sumatriptan 6 mg/0.5 mL subcutaneous pen injector Active ? Not available tizanidine 2 mg capsule Active ? Not avai lable tramadol 50 mg tablet Active ? Not availa ble trazodone 150 mg tablet Active ? Not avai lable trazodone 300 mg tablet Active ? Not avai lable Trulance 3 mg tablet Active ? Not availab le Vitamin D3 25 mcg (1,000 unit) tablet Active ? Not available Xifaxan 550 mg tablet Active ? Not availa ble Problems None recorded. Procedures None recorded. Results Lab Results Date Name Specimen Result Interpretation Description Value Range Status Address ? 10/01/2019 Hepatic ? Bilirubin,total 0.1 (0-1.2) F inal [facility] Function mg/dL mg/dL Referenc e Panel, Serum Labo ratories: [address], [place] ? ? ? Bilirubin, 0.0 (0-0.3) Final [facility] Direct mg/dL mg/dL Reference Laboratori es: [address], [place] ? ? ? Indirect 0.1 (0.0-0.7 Final [facility] Bilirubin mg/dL ) mg/dL Refere nce Laboratori es: [address], [place] ? ? ? Albumin 4.0 (3.4-4.8 Final [facility] gm/dL ) gm/dL Reference Laboratori es: [address], [place] ? ? ? Ast 30 U/L (0-32) Final [facility] U/L Reference Laboratori es: [address], [place] ? ? ? Alt 30 U/L (0-33) Final [facility] U/L Reference Laboratori es: [address], [place] ? ? ? Alk Phos 84 U/L (35-104) Final [facility] U/L Reference Laboratori es: [address], [place] ? ? ? Total Protein 6.2 (6.2-8.2 Final [facility] gm/dL ) gm/dL Reference Laboratori es: [address], [place] 09/27/2019 Pro BNP (Pro High Pro BNP 262 (0-125) Enedina l [facility] B-type pg/mL pg/mL Reference Natriuretic Labor atories: Peptide), [address], Plasma [place] Past Encounters None recorded. Social History None recorded. Vaccine List None recorded. Plan of Care Reminders Provider Appointments None recorded. ? ? Lab None recorded. ? ? Referral None recorded. ? ? Procedures None recorded. ? ? Surgeries None recorded. ? ? Imaging None recorded. ? ? Vitals 10/16/2019 04:41PM D02 New or Est Patient Blood Pressure 128/58 mm[Hg] 10/01/2019 05:56PM D02 New or Est Patient Blood Pressure 126/86 mm[Hg] 09/29/2019 01:13PM D02 New or Est Patient Blood Pressure 136/82 mm[Hg] 09/27/2019 11:08AM D02 New or Est Patient Blood Pressure 118/88 mm[Hg]
--- OUTSIDE RECORDS SUMMARY | 2021-12-30 21:46 | XMS_ITS | Continuity of Care Document ---
:1970 Author Organization [facility] Address [address] [place] [id number]- Care Team Providers Name Role Phone Nasima Narayan DO Primary Care Physician Encounter [facility] Date(s): 05/20/20 - 05/20/[address] [address]- Encounter Diagnosis Multiple complaints (Final) - 05/20/20 Chest pain (Final) - 05/20/20 Discharge Disposition: A-D/C Home Attending Physician: Porsche Rosales MD Admitting Physician: Porsche Rosales MD Referring Physician: Not on Staff, Referring [...] Not Given Patient Refuses 1Result Comment: [05/03/2018] [id number] Comment: [05/03/2018] [id number] Note: pt stated she did not want to receive vaccine today, may want later Medications albuterol-ipratropium 3 mg-0.5 mg/3 ml inhalation solution 3 mL, Inhalation, 4 times a day, # 360 mL, 1 Refills, Maintenance, 12/13/19 8:19:00 EDT, Inhalation Solution, [facility], 3 mL Inhalation 4 times a day, 141, cm, 12/07/19 12:18:00 EDT, Height, 100.5, kg, 12/05/19 3:32:00 EDT, Dry Weight Start Date: 12/13/19 Status: OrderedBreo Ellipta 200 mcg-25 mcg/inh inhalation [...] 01/06/20 10:18:00 EDT, Route to Pharmacy Electronically, [facility], 142, cm, 01/06/20 8:20:00EDT, Height, 103, kg, 01/04/20 18:55:00 EDT, Dry... Start Date: 01/06/20 Status: Orderedcetirizine 10 mg oral tablet 1 tablet, By Mouth, Daily, # 90 tablet, 1 Refills, Maintenance, 12/23/19 16:02:00 EDT, [facility]/pharmacy #[id number], 142, cm, 12/15/19 7:46:00 EDT, Height, 91, kg, 12/13/19 15:07:00 EDT, Dry Weight Start Date: 12/23/19 Status: Orderedchlorpheniramine-hydrocodone 8 mg-10 mg/5 mL oral suspension, extended release TAKE 5 ML EVERY 12 HOURS NEEDED FOR COUGH Start Date: 11/17/19 Status: OrderedclonazePAM 1 mg oral tablet 1 tablet = 1 mg, By Mouth, 3 times a day, 0 Refills, Maintenance, 11/17/19 9:37:00 EDT, Tablet Start Date: 11/17/19 Status: OrderedD 1000 IU oral tablet 1 tablet = 1,000 International_Units, By Mouth, Daily, # 30 tablet, 0 Refills, Maintenance, :24:00 EDT, Tablet Start Date: 11/17/19 Status: OrderedDaily-Madi with Iron oral tablet 1 tablet, By Mouth, Daily, # 90 tablet, 1 Refills, Maintenance, 12/02/19 14:20:00 EDT, [facility]/pharmacy #[id number], 1 tablet By Mouth Daily, 142, [...] Refills, Maintenance, 11/21/19 12:43:00 EDT, [id number], 142, cm, 11/16/19 8:05:00 EDT, Height, 90.7, kg, 10/11/19 1:24:00 EDT, Dry Weight Start Date: 11/21/19 Status: OrderedDupixent 300 mg/2 mL subcutaneous solution 0 Refills, Maintenance, 11/17/19 4:27:00 EDT Start Date: 11/17/19 Status: Orderedfluticasone 50 mcg/inh nasal spray 1 sprays, Nares, Both, 2 times a day, 0 Refills, Maintenance, 11/17/19 4:21:00 EDT, [place] Start Date: 11/17/19 Status: Orderedlamotrigine 25 mg [...] tablet, 0 Refills, Maintenance, 01/30/20 14:58:00 EST, [id number], 143, cm, 01/14/20 22:55:00 EDT, Height, 101, kg, 01/14/20 22:55:00 EDT, Dry Weight Start Date: 01/30/20 Status: Orderedlidocaine 4% topical film 1 patch, Topically, Daily, # 30 patch, 0 Refills, Maintenance, 01/06/20 10:41:00 EDT, Film, [facility], 142, cm, 01/06/20 8:20:00 EDT, Height, 103, kg, 01/04/20 18:55:00 EDT, Dry Weight Start Date: 01/06/20 Stop Date: 02/05/20 Status: Orderedmagnesium oxide 400 mg (240 mg elemental magnesium) oral tablet 1 tablet, By Mouth, Daily, # 90 tablet, 3 Refills, Acute, 04/10/20 10:44:00 EST, [id number], 90, TAKE 1 TABLET BY MOUTH EVERY DAY, 143, cm, 03/27/20 7:23:00 EST, Height, 101, kg, 01/14/20 22:55:00EDT, Dry Weight Start Date: 04/10/20 Status: Orderedmeloxicam 7.5 mg oral tablet 1 tablet, By Mouth, Daily, # 30 tablet, 0 Refills, Maintenance, 11/23/19 18:18:00 EDT, [id number], 142, cm, 11/16/19 8:05:00 EDT, Height, 90.7, [...] EDT, Dry Weight Start Date: 04/11/20 Status: Orderednystatin 246833 u/ml oral suspension 1 mL = 100,000 units, By Mouth, 4 times a day, # 30 mL, 0 Refills, Maintenance, 11/17/19 4:28:00 EDT, Suspension Start Date: 11/17/19 Status: Orderedondansetron 4 mg oral tablet 1 tablet = 4 mg, By Mouth, Every 8 hours, PRN Nausea & Vomiting, # 10 tablet, 0 Refills, Maintenance, 12/19/19 13:39:00 EDT, Tablet, [facility]/pharmacy #[id number], 142, cm, 12/15/19 7:46:00 EDT, Height, [...] Refills, Maintenance, 01/10/20 7:53:00 EDT, Capsule, [facility]/pharmacy #[id number], 142, cm, 01/08/20 22:31:00 EDT, Height, 100, kg, 01/08/20 22:31:00 EDT, Dry Weight Start Date: 01/10/20 Status: OrderedQUEtiapine 200 mg oral tablet 200 mg, 1, tablet, By Mouth, 2 times a day, # 180 tablet, Refills 0, Maintenance, 11/17/19 4:26:00 EDT Start Date: 11/17/19 Status: OrderedSpiriva = 18 mcg, Inhalation, Daily, 0 Refills, Maintenance, 11/18/19 14:38:00 EDT Start Date: 11/18/19 Status: OrderedtraZODone 150 mg oral tablet 1 tablet = 150 mg, By Mouth, Daily at bedtime, # 30 tablet, 0 Refills, Maintenance, 11/17/19 4:23:00EDT, Tablet Start Date: 11/17/19 Status: OrderedTrulance 3 mg oral tablet 0 Refills, Maintenance, 11/17/19 4:22:00 EDT Start Date: 11/17/19 Status: OrderedTylenol 325 mg [...] disorder)(Confirmed) Leg swelling(Confirmed) Active Ulcerative colitis(Confirmed) Active Results Radiology Reports Exam Date Time Procedure Performing Provider Status 05/20/20 5:15 PM Chest 2 Views Frontal and Lat Ingrid Sanchez; Auth (Verified) Notes:(Chest 2 Views Frontal and Lat) Reason For Exam: Abdominal PainRESULT: Chest 2 Views Frontal and Lat Chest 2 Views Frontal and Lat Hx of Present Illness: pt reports N V D and bad pain for the last 3 days pt report had period of unresponsive today and EMS was called pt doesn't recall incident pt also reports SOB and took a neb at home; Reason: Abdominal Pain; Clinical Question(s): Other:; Abd Free Air COMPARISON: 01/14/2020 FINDINGS: LINES AND TUBES: None. LUNGS AND PLEURA: Clear lungs. Normal pulmonary vascularity. No pleural effusion. No pneumothorax. HEART, MEDIASTINUM AND REY: Heart is normal in size. Normal upper mediastinal and hilar contour. BONES AND SOFT TISSUES: No acute abnormality. IMPRESSION: No acute abnormality. WSN: [id number] Ordering Physician: Jagdish Graham Dictated By: Jonny Jordan DO Dictated Date/Time: 05/20/20 5:17 pm Reviewed By: Jonny Jordan DO Signed By: Jonny Jordan DO Signed Date/Time: 05/20/20 5:17 pm Transcribed By: ANAYELI Transcribed Date/Time: 05/20/20 5:16 pm Vital Signs Most recent to oldest 1 2 3 [Reference Range]: Oxygen Saturation [94-100 %] 99 % 100 % 99 % (05/20/20 11:00 PM) (05/20/20 9:00 PM) (05/20/20 6: 29 PM) Pulse Rate [55-90 bpm] 78 bpm 72 bpm 70 bpm (05/20/20 11:00 PM) (05/20/20 9:00 PM) (05/20/20 6: 29 PM) Blood Pressure [90-138/55-84 142/90 mm Hg 139/84 mm Hg 142 /84 mm Hg mm Hg] *H* *H* *H* (05/20/20 11:00 PM) (05/20/20 9:00 PM) (05/20/20 6: 29 PM) Respiratory Rate [16-30 16 br/min 18 br/min 18 br/mi n br/min] (05/20/20 11:00 PM) (05/20/20 9:00 PM) (05/20/20 6: 29 PM) Temperature [96.8-100.4 DegF] 98.6 DegF 99.2 DegF (05/20/20 9:00 PM) (05/20/20 4:25 PM) Mode of Delivery (Oxygen) Room air Room air Room a ir (05/20/20 11:00 PM) (05/20/20 9:00 PM) (05/20/20 4: 25 PM) Blood pressure sites Arm, right Arm, right Arm, left (05/20/20 11:00 PM) (05/20/20 9:00 PM) (05/20/20 4: 25 PM) Temperature Route Oral Oral (05/20/20 9:00 PM) (05/20/20 4:25 PM) Social History Social History Type Response Smoking Status Never (less than 100 in life time) entered on: 01/01/20 Sex
--- OUTSIDE RECORDS SUMMARY | 2021-12-30 21:46 | XMS_ITS | Continuity of Care Document ---
:1970 Author Organization [facility] Address [address] [place] [id number]- Care Team Providers Name Role Phone Cristal OROZCO, Edie Segovia Primary Care Physician [phone] Encounter [facility] Date(s): 07/01/21 - 07/31/[address] [address]- Allergies, Adverse Reactions, Alerts Substance Reaction Severity Status sulfADIAZINE Rash Active droperidol Anaphylactic reaction Persistent Severe Active penicillins Rash Active Toradol1, 2 Active Keflex Rash Active Glutens rash Active 1abd upset with [id number] upset Immunizations Given and Recorded Vaccine Date Status Refusal Reason SARS-CoV-2 (COVID-19) mRNA-1273 vaccine 02/06/21 Recorded SARS-CoV-2 (COVID-19) mRNA-1273 vaccine 06/29/20 Recorded SARS-CoV-2 (COVID-19) mRNA-1273 vaccine 05/30/20 Recorded tetanus/diphtheria/pertussis, acel(Tdap) 08/16/20 Given tetanus/diphtheria/pertussis, acel(Tdap)1 02/19/13 Record ed influenza virus vaccine, inactivated 03/31/19 Given influenza virus vaccine, inactivated 12/04/17 Recorded pneumococcal 23-valent vaccine2 08/28/15 Recorded Not Given Vaccine Date Status Refusal Reason pneumococcal 23-valent vaccine3 01/04/18 Not Given Patient Refuses 1Result Comment: [05/03/2018] [id number] Comment: [05/03/2018] [id number] Note: pt stated she did not want to receive vaccine today, may want later Medications Apriso 0.375 g oral capsule, extended release 4 capsule = 1.5 Gm, By Mouth, Daily in AM, # 120 capsule, 4 Refills, Maintenance, 04/01/21 11:02:00 EST, CR Capsule, [id number], Partial fill upon patient request if the prescription is for a schedule II opioid drug., 142, cm, 03/25/21 21:03:0... Start Date: 04/01/21 Stop Date: 08/29/21 Status: Orderedbuprenorphine 20 mcg/hr transdermal film, extended release 0 Refills, Maintenance, 01/10/21 8:38:00 EDT, Partial fill upon patient request if the prescription is for a schedule II opioid drug. Start Date: 01/10/21 Status: Orderedcetirizine 10 mg oral tablet 1 [...] Start Date: 09/23/20 Stop Date: 09/25/20 Status: OrderedColace sodium 100 mg oral capsule 100 mg, 1, capsule, By Mouth, 2 times a day, PRN, # 20 capsule, Refills 0, Tot. Refills 0, Maintenance, for constipation, 05/29/21 18:11:00 EST, Route to [facility]ically, [id number], Partial fill upon patient request if the prescriptio... Start Date: 05/29/21 Status: OrderedDaily-Madi with Iron oral tablet 1 [...] capsule, 3 Refills, Maintenance, 09/28/20 7:41:00 EDT, [facility]/pharmacy #[id number], 143, cm, 09/20/20 19:45:00 EDT, Height, 106.6, kg, 09/20/20 19:45:00 EDT, Dry Weight Start Date: 09/28/20 Stop Date: 01/26/21 Status: Orderedduloxetine 60 mg oral enteric coated capsule 1 capsule, By Mouth, Daily, # 30 capsule, 0 Refills, Maintenance, 11/21/19 12:43:00 EDT, [facility], 142, cm, 11/16/19 8:05:00 EDT, Height, 90.7, kg, 10/11/19 1:24:00 EDT, Dry Weight Start Date: 11/21/19 Status: OrderedDupixent 300 mg/2 mL subcutaneous solution Every 14 days, 0 Refills, Maintenance, 11/17/19 4:27:00 EDT Start Date: 11/17/19 Status: Orderedfluticasone 50 mcg/inh nasal spray 1 sprays, Nares, Both, 2 times a day, 0 Refills, Maintenance, 11/17/19 4:21:00 EDT, [place] Start Date: 11/17/19 Status: OrderedImodium A-D 2 mg oral tablet 2 mg, 1, tablet, By Mouth, Every 4 hours, PRN, # 10 tablet, Refills 0, Tot. Refills 0, Maintenance, for loose stool, 07/27/21 19:52:00 EDT, Route to Pharmacy Electronically, [facility]/pharmacy #[id number], Partialfill upon patient request if the prescription is... Start Date: 07/27/21 Status: OrderedLatuda 40 mg oral tablet 1 tablet = 40 mg, By Mouth, Daily, # 30 tablet, 0 Refills, Maintenance, 11/17/19 4:22:00 EDT, Tablet Start Date: 11/17/19 Status: Orderedlevothyroxine 0.137 mg oral tablet 1 tablet, By Mouth, Daily, # 90 tablet, 0 Refills, Maintenance, 01/30/20 14:58:00 EST, [id number], 143, cm, 01/14/20 22:55:00 EDT, Height, 101, kg, 01/14/20 22:55:00 EDT, Dry Weight Start Date: 01/30/20 Status: Orderedmagnesium oxide 400 mg oral tablet 1 tablet, By Mouth, Daily, # 90 tablet, 3 Refills, [facility], 143, cm, 04/02/21 3:19:00 EST, Height, 96.2, kg, 04/02/21 3:19:00 EST, Dry Weight Start Date: 04/08/21 Status: Orderedmontelukast 10 mg oral tablet 10 mg, 1, tablet, By Mouth, Daily in PM, # 30 tablet, Refills 0, Maintenance, 11/17/19 4:22:00 EDT Start Date: 11/17/19 Status: Orderedpantoprazole 20 mg oral delayed release tablet TAKE 1 TABLET BY MOUTH TWICE DAILY Start Date: 01/16/20 Status: OrderedPerformix P5 Performix P5, See Instructions, # 180 Gm, Refills 1, Tot. Refills 1, Maintenance, Ketamine 10% Baclofen 2% Cyclobenzaprine 2% Diclofenac 3% Gabapentin 10% Bupivicaine 2% in Liposomal cream, 11/20/20 15:41:00 EDT, [place] Start Date: 11/20/20 Status: Orderedpotassium chloride 10 mEq oral capsule, extended release 1 capsule = 10 mEq, By Mouth, 2 times a day, # 14 capsule, 0 Refills, Maintenance, 04/01/21 23:03:00EST, CR Capsule, [facility]/pharmacy #[id number], Partial fill upon patient request if the prescription is for a schedule II opioid drug., 143, cm, 04/01/21 22:56:... Start Date: 04/01/21 Stop Date: 04/08/21 Status: Orderedprazosin 5 mg oral capsule 5 mg, 1, capsule, By Mouth, Daily at bedtime, Refills 0, Maintenance, 04/11/21 11:07:00 EST, Partialfill upon patient request if the prescription is for a schedule II opioid drug. Start Date: 04/11/21 Status: OrderedpredniSONE 5 mg oral tablet See Instructions, /6-5/5-4/4-3/3-2/2-1/1 tablets 2 days each, # 42 tablet, 0 Refills, Maintenance, 04/12/21 11:53:00 EST, [id number], Partial fill upon patient request if the prescription is for a schedule II opioid drug., 142, cm, 04/11/21 1... Start Date: 04/12/21 Status: OrderedTessalon Perles 100 mg oral capsule 1 capsule = 100 mg, By Mouth, 3 times a day, for 7 days, # 21 capsule, 0 Refills, Acute 08/04/21 20:12:00 EDT, 07/28/21 20:12:00 EDT, Capsule, [id number], Partial fill upon patient request if the prescription is for a schedule II opioid drug.,... Start Date: 07/28/21 Stop Date: 08/04/21 Status: OrderedtraZODone 150 mg oral tablet 1 tablet = 150 mg, By Mouth, Daily at bedtime, # 30 tablet, 0 Refills, Maintenance, 11/17/19 4:23:00EDT, Tablet Start Date: 11/17/19 Status: OrderedTrelegy Ellipta inhalation powder 1 puffs, Inhalation, Daily, at the same time every day, # 1 each, 5 Refills, Maintenance, 05/15/21 14:16:00 EST, Powder, [id number], Partial fill upon patient request if the prescription is fora schedule II opioid drug., 143, cm, 05/15/21 14:... Start Date: 05/15/21 Stop Date: 11/11/21 Status: OrderedTrulance 3 mg oral tablet See Instructions, TAKE 1 TABLET BY MOUTH EVERY DAY, # 30 tablet, 3 Refills, 07/22/21 10:59:00 EDT, [id number], 142, cm, 07/18/21 22:58:00 EDT, Height, 92.5, kg, 07/18/21 22:58:00 EDT, Dry Weight Start Date: 07/22/21 Status: OrderedZofran 4 mg oral tablet 1 tablet = 4 mg, By Mouth, Every 8 hours, PRN as needed for nausea/vomiting, # 15 tablet, 0 Refills,Maintenance, 04/01/21 23:03:00 EST, Tablet, [facility]/pharmacy #[id number], Partial fill upon patient request ifthe prescription is for a schedule II opioid drug... Start Date: 04/01/21 Stop Date: 04/06/21 Status: Ordered Problem List Condition Effective Dates Status Health Status Informant Bloating(Confirmed) Active Gait abnormality(Confirmed) Active Anemia(Confirmed) Active Asthma(Confirmed) Active Pseudotumor cerebri(Confirmed) Active Binge eating disorder, severe, in Active partial remission(Confirmed) Celiac disease(Confirmed) Active Chronic back pain(Confirmed) Active CKD (chronic kidney Active disease)(Confirmed) Constipation(Confirmed) Active Cough(Confirmed) Active Depression(Confirmed) Active Dyspnea(Confirmed) Active Shortness of breath(Confirmed) Active Severe persistent asthma with acute Active exacerbation(Confirmed) Fibromyalgia(Confirmed) Active GERD (gastroesophageal reflux Active disease)(Confirmed) [...] effusion(Confirmed) Active PTSD (post-traumatic stress Active disorder)(Confirmed) Severe obesity(Confirmed) Active Leg swelling(Confirmed) Active Ulcerative colitis(Confirmed) Active Social History Social History Type Response Smoking Status Never (less than 100 in life time) entered on: 01/01/20 Sex
--- OUTSIDE RECORDS SUMMARY | 2021-12-30 21:46 | XMS_ITS | Continuity of Care Document ---
:1970 Author Organization [facility] Address Unavailable , Care Team Providers Name Role Phone Sylvain FAITHNasima Primary Care Physician [place] [facility] [place]/21 [facility] Attending Physician: AdmtrVinny Admitting Physician: Admtr, Ar8 Referring Physician: Admtr, Ar8 Allergies, Adverse Reactions, Alerts Substance Reaction Severity Status sulfADIAZINE Rash Active droperidol Anaphylactic reaction Persistent Severe Active penicillins Rash Active Toradol Active Keflex Rash Active Glutens rash Active Immunizations Given and Recorded Vaccine Date Status Refusal Reason tetanus/diphtheria/pertussis, acel(Tdap) 08/16/20 Given tetanus/diphtheria/pertussis, acel(Tdap)1 02/19/13 Record ed influenza virus vaccine, inactivated 03/31/19 Given influenza virus vaccine, inactivated 12/04/17 Recorded pneumococcal 23-valent vaccine2 08/28/15 Recorded Not Given Vaccine Date Status Refusal Reason pneumococcal 23-valent vaccine3 01/04/18 Not Given Patient Refuses 1Result Comment: [05/03/2018] [id number] Comment: [05/03/2018] [id number] Note: pt stated she did not want to receive vaccine today, may want later Medications Apriso 0.375 g oral capsule, extended release 4 capsule = 1.5 Gm, By Mouth, Daily in AM, # 120 capsule, 4 Refills, Maintenance, 04/01/21 11:02:00 EST, CR Capsule, [id number], Partial fill upon patient request if the [...] capsule, 3 Refills, Maintenance, 09/28/20 7:41:00 EDT, [id number], 143, cm, 09/20/20 19:45:00 EDT, Height, 106.6, kg, 09/20/20 19:45:00 EDT, Dry Weight Start Date: 09/28/20 Stop Date: 01/26/21 Status: Orderedduloxetine 60 mg oral enteric coated capsule 1 capsule, By Mouth, Daily, # 30 capsule, 0 Refills, Maintenance, 11/21/19 12:43:00 EDT, [id number], 142, cm, 11/16/19 8:05:00 EDT, Height, 90.7, kg, 10/11/19 1:24:00 EDT, Dry Weight Start Date: 11/21/19 Status: OrderedDupixent 300 mg/2 mL subcutaneous solution Every 14 days, 0 Refills, Maintenance, 11/17/19 4:27:00 EDT Start Date: 11/17/19 Status: Orderedfluticasone 50 mcg/inh nasal spray 1 sprays, Nares, Both, 2 times a day, 0 Refills, Maintenance, 11/17/19 4:21:00 EDT, [place] Start Date: 11/17/19 Status: OrderedLatuda 40 mg oral tablet 1 tablet = 40 mg, By Mouth, Daily, # 30 tablet, 0 Refills, Maintenance, 11/17/19 4:22:00 EDT, Tablet Start Date: 11/17/19 Status: Orderedlevothyroxine 0.137 mg oral tablet 1 tablet, By Mouth, Daily, # 90 tablet, 0 Refills, Maintenance, 01/30/20 14:58:00 EST, [facility], 143, cm, 01/14/20 22:55:00 EDT, Height, 101, kg, 01/14/20 22:55:00 EDT, Dry Weight Start Date: 01/30/20 Status: Orderedmagnesium oxide 400 mg oral tablet 1 tablet, By Mouth, Daily, # 90 tablet, 3 Refills, [id number], 143, cm, 04/02/21 3:19:00 EST, Height, 96.2, [...] 23:03:00EST, CR Capsule, [id number], Partial fill upon patient request if [...] OrderedpredniSONE 5 mg oral tablet See Instructions, 6-5/5-4/4-3/3-2/2-1/1 tablets 2 days each, # 42 tablet, 0 Refills, Maintenance, 04/12/21 11:53:00 EST, [facility] #[id number], Partial fill upon patient request if the prescription is for a schedule II opioid drug., 142, cm, 04/11/21 1... Start Date: 04/12/21 Status: OrderedtraZODone 150 mg oral tablet 1 tablet = 150 mg, By Mouth, Daily at bedtime, # 30 tablet, 0 Refills, Maintenance, 11/17/19 4:23:00EDT, Tablet Start Date: 11/17/19 Status: OrderedZofran 4 mg oral tablet 1 tablet = 4 mg, By Mouth, Every 8 hours, PRN as needed for nausea/vomiting, # 15 tablet, 0 Refills,Maintenance, 04/01/21 23:03:00 EST, Tablet, [id number], Partial fill upon patient request ifthe [...]
--- OUTSIDE RECORDS SUMMARY | 2021-12-30 21:46 | XMS_ITS | Continuity of Care Document ---
:1970 Author Organization [facility] Address [address] [place] [address]- Care Team Providers Name Role Phone Go Schwarz MD Primary Care Physician Encounter [facility] [id number] Date(s): 07/12/19 - 07/22/[address] [address]- [facility] Attending Physician: Vinny Cornejo Admitting Physician: AdmVinny del valle Referring Physician: AdmtrVinny Allergies, Adverse Reactions, Alerts Substance Reaction Severity Status sulfADIAZINE Rash Active droperidol Anaphylactic reaction Persistent Severe Active penicillins Rash Active Diamox1 C/O: itching Persistent Moderate Active Keflex Rash Active Glutens rash Active 1itchy Immunizations Given and Recorded Vaccine Date Status Refusal Reason influenza virus vaccine, inactivated 03/31/19 Given influenza virus vaccine, inactivated 12/04/17 Recorded pneumococcal 23-valent vaccine1 08/28/15 Recorded tetanus/diphtheria/pertussis, acel(Tdap)3 02/19/13 Record ed Not Given Vaccine Date Status Refusal Reason pneumococcal 23-valent vaccine2 01/04/18 Not Given Patient Refuses 1Result Comment: [05/03/2018] [id number] Comment: [05/03/2018] [id number] Note: pt stated she did not want to receive vaccine today, may want later Medications Apriso 0.375 g oral capsule, extended release 4 capsule = 1.5 Gm, By Mouth, Daily in AM, # 120 capsule, 3 Refills, Maintenance, 06/16/19 11:33:00 EDT, CR Capsule, [id number], 143, cm, 06/09/19 7:23:00 EDT, Height, 91, kg, 06/06/19 18:37:00EDT, Dry Weight Start Date: 06/16/19 Stop Date: 10/14/19 Status: OrderedbuPROPion 200 mg/12 hours (SR) oral tablet, extended release 1 tablet = 200 mg, By Mouth, 2 times a day before breakfast and dinne, # 60 tablet, 0 Refills, Maintenance, 12/27/18 11:15:10 EDT, ER Tablet Start Date: 12/27/18 Stop Date: 01/26/19 Status: OrderedclonazePAM 1 mg oral tablet = 1 mg, By Mouth, 3 times a day, PRN Anxiety, 0 Refills, Maintenance, 10/04/18 11:33:53 EDT, Tablet Start Date: 10/04/18 Status: Ordereddivalproex sodium 500 mg oral enteric coated tablet = 500 mg, By Mouth, 2 times a day, 0 Refills, Maintenance, 12/27/18 11:17:00 EDT, Tablet Start Date: 12/27/18 Status: Orderedduloxetine 60 mg oral enteric coated capsule = 120 mg, By Mouth, Daily, 0 Refills, Maintenance, 10/04/18 11:34:58 EDT, Capsule Start Date: 10/04/18 Status: OrderedDupixent Subcutaneous Infusion, Once, 0 Refills, Maintenance, 05/30/19 15:33:00 EST Start Date: 05/30/19 Status: Orderedmagnesium citrate 8.85% oral liquid 150 mL = 8.725 Gm, By Mouth, Once, # 300 mL, 0 Refills, Soft Stop, 04/28/19 17:14:00 EST, Liquid, [facility] #[id number], 150 mL By Mouth Once, 142, cm, 04/28/19 9:05:00 EST, Height, 92.6, kg, 03/30/19 10:30:00 EST, Dry Weight Start Date: 04/28/19 Status: OrderedMontelukast = 10 mg, By Mouth, Daily at bedtime, 0 Refills, Maintenance, 12/06/18 9:39:00 EDT Start Date: 12/06/18 Status: Orderedmultivitamin with minerals Multiple Vitamins with Minerals oral tablet 1 tablet, By Mouth, Daily, # 30 tablet, 0 Refills, Maintenance, 12/27/18 11:19:24 EDT, Tablet, 1 tablet By Mouth Daily,x30 days Start Date: 12/27/18 Stop Date: 01/26/19 Status: Orderedprazosin 5 mg oral capsule 5 mg, By Mouth, Daily at bedtime, Refills 0, Maintenance, 10/04/18 11:36:58 EDT Start Date: 10/04/18 Status: OrderedProAir HFA 90 mcg/inh inhalation aerosol with adapter 180 mcg, 2, puffs, Inhalation, Every 4 hours, PRN, Refills 0, Maintenance, 10/04/18 11:33:33 EDT, Inhaler Start Date: 10/04/18 Status: Orderedsimethicone 80 mg oral tablet, chewable 80 mg, 1, tablet, Chew, 4 times a day, PRN, # 36 tablet, Refills 0, Tot. Refills 0, Maintenance, as needed for gas, 11/13/18 8:46:36 EDT, [place] Start Date: 11/13/18 Status: OrderedSUMAtriptan 6 mg/0.5 mL subcutaneous solution 0.5 mL = 6 mg, Subcutaneous Injection, Once, PRN for migraine headache, # 2 each, 0 Refills, Maintenance, 06/30/18 15:39:34 EDT, Solution Start Date: 06/30/18 Status: OrderedtraZODone 300 mg oral tablet By Mouth, Daily at bedtime, 0 Refills, Maintenance, 10/04/18 11:38:13 EDT, Tablet Start Date: 10/04/18 Status: Ordered Problem List Condition Effective Dates Status Health Status Informant Anemia(Confirmed) Active Asthma(Confirmed) Active Pseudotumor cerebri(Confirmed) Active Binge eating disorder, severe, in Active partial remission(Confirmed) Celiac disease(Confirmed) Active Constipation(Confirmed) Active Fibromyalgia(Confirmed) Active GERD (gastroesophageal reflux Active disease)(Confirmed) History of back injury(Confirmed) Active History of self mutilation(Confirmed) Active Headache(Confirmed) Active HTN (hypertension)(Confirmed) Active Hypothyroidism(Confirmed) Active Lymphocytic colitis(Confirmed) Active Major depression(Confirmed) Active Migraines(Confirmed) Active Anxiety and depression(Confirmed) Active Mood disorder(Confirmed) Active TRISTAN on CPAP(Confirmed) Active Paresthesias(Confirmed) Active PTSD (post-traumatic stress Active disorder)(Confirmed) Ulcerative colitis(Confirmed) Active Social History Social History Type Response Smoking Status Never smoker; Tobacco user i n household: No entered on: 10/25/14 Sex Female
--- OUTSIDE RECORDS SUMMARY | 2021-12-30 21:46 | XMS_ITS | Continuity of Care Document ---
:1970 Author Organization [facility] Address [address] [place] [address]- Care Team Providers Name Role Phone Nasima Narayan DO Primary Care Physician Encounter [facility] Date(s): 07/15/20 - 07/15/[address] [address]- Discharge Disposition: A-D/C Home Attending Physician: Osmar Stanford DO Admitting Physician: Osmar Stanford DO Referring Physician: Not on Staff, Referring MD [...] Not Given Patient Refuses 1Result Comment: [05/03/2018] [id number] Comment: [05/03/2018] [id number] Note: pt stated she did not want to receive vaccine today, may want later Medications albuterol-ipratropium 3 mg-0.5 mg/3 ml inhalation solution 3 mL, Inhalation, 4 times a day, # 360 mL, 1 Refills, Maintenance, 12/13/19 8:19:00 EDT, Inhalation Solution, [facility], 3 mL Inhalation 4 times a day, 141, cm, 12/07/19 12:18:00 EDT, Height, 100.5, kg, 12/05/19 3:32:00 EDT, Dry Weight Start Date: 12/13/19 Status: OrderedAzithromycin 5 Day Dose Pack 250 mg oral tablet 1 pack/packet, By Mouth, Once, # 6 tablet, 0 Refills, Soft Stop, 06/27/20 15:07:00 EDT, Tablet, [facility]/pharmacy #[id number], Partial fill upon patient request if the prescription is for a schedule II opioid drug., 142, cm, 06/27/20 14:47:00 EDT, Height, 100, k... Start Date: 06/27/20 Status: OrderedbuPROPion 150 mg/24 hours (XL) oral [...] 01/06/20 10:18:00 EDT, Route to Pharmacy Electronically, [facility], 142, cm, 01/06/20 8:20:00EDT, Height, 103, kg, 01/04/20 18:55:00 EDT, Dry... Start Date: 01/06/20 Status: Orderedcetirizine 10 mg oral tablet 1 tablet, By Mouth, Daily, # 90 tablet, 1 Refills, Maintenance, 12/23/19 16:02:00 EDT, [facility]/pharmacy #[id number], 142, cm, 12/15/19 7:46:00 [...] tablet, 1 Refills, Maintenance, 12/02/19 14:20:00 EDT, [facility]/pharmacy #[id number], 1 tablet By Mouth Daily, 142, [...] cramps, # 90 capsule, 3 Refills, Maintenance, 06/30/20 12:45:00 EDT, [facility]/pharmacy #[id number], 142, cm, 06/27/20 14:47:00 EDT, Height, 100, kg, 06/18/20 15:45:00 EDT, Dry Weight Start Date: 06/30/20 Stop Date: 10/28/20 Status: Orderedduloxetine 60 mg oral enteric coated capsule 1 capsule, By Mouth, Daily, # 30 capsule, 0 Refills, Maintenance, 11/21/19 12:43:00 EDT, [facility], 142, cm, 11/16/19 8:05:00 EDT, Height, 90.7, kg, 10/11/19 1:24:00 EDT, Dry Weight Start Date: 11/21/19 Status: OrderedDupixent 300 mg/2 mL subcutaneous solution 0 Refills, Maintenance, 11/17/19 4:27:00 EDT Start Date: 11/17/19 Status: Orderedfluticasone 50 mcg/inh nasal spray 1 sprays, Nares, Both, 2 times a day, 0 Refills, Maintenance, 11/17/19 4:21:00 EDT, [place] Start Date: 11/17/19 Status: Orderedlamotrigine 25 mg oral tablet 25 mg, 1, tablet, By Mouth, 2 times a day, # 60 tablet, Refills 0, Maintenance, 11/17/19 4:23:00 EDT Start Date: 11/17/19 Status: OrderedLasix 20 mg oral tablet 20 mg, 1, tablet, By Mouth, Daily, # 7 tablet, Refills 0, Tot. Refills 0, Maintenance, 07/15/20 22:03:00 EDT, Route to Pharmacy Electronically, [facility]/pharmacy #[id number], Partial fill upon patient [...] tablet, 0 Refills, Maintenance, 01/30/20 14:58:00 EST, [facility] [id number], 143, cm, 01/14/20 22:55:00 EDT, Height, 101, kg, 01/14/20 22:55:00 EDT, Dry Weight Start Date: 01/30/20 Status: Orderedlidocaine 4% topical film 1 patch, Topically, Daily, # 30 patch, 0 Refills, Maintenance, 01/06/20 10:41:00 EDT, Film, [facility] 3, 142, cm, 01/06/20 8:20:00 EDT, Height, 103, kg, 01/04/20 18:55:00 EDT, Dry Weight Start Date: 01/06/20 Stop Date: 02/05/20 Status: Orderedmagnesium oxide 400 mg (240 mg elemental magnesium) oral tablet 1 tablet, By Mouth, Daily, # 90 tablet, 3 Refills, Acute, 04/10/20 10:44:00 EST, [id number], 90, TAKE 1 TABLET BY MOUTH EVERY DAY, 143, cm, 03/27/20 7:23:00 EST, Height, 101, kg, 01/14/20 22:55:00EDT, Dry Weight Start Date: 04/10/20 Status: Orderedmeloxicam 7.5 mg oral tablet 1 tablet, By Mouth, Daily, # 30 tablet, 0 Refills, Maintenance, 11/23/19 18:18:00 EDT, [facility], 142, cm, 11/16/19 8:05:00 EDT, Height, 90.7, [...] 0 Refills, Maintenance, 12/19/19 13:39:00 EDT, Tablet, [facility]/pharmacy #[id number], 142, cm, 12/15/19 7:46:00 [...] 3 Refills, Maintenance, 01/10/20 7:53:00 EDT, Capsule, [id number], 142, cm, 01/08/20 22:31:00 EDT, Height, [...] tablet, 0 Refills,Maintenance, 06/08/20 22:23:00 EST, Tablet, [id number], Partial fill upon patient request ifthe prescription is for a schedule II opioid drug... Start Date: 06/08/20 Status: OrderedZofran 4 mg oral tablet 1 tablet = 4 mg, By Mouth, Every 8 hours, PRN as needed for nausea/vomiting, # 8 tablet, 0 Refills, Maintenance, 06/06/20 13:07:00 EST, Tablet, [id number], Partial fill upon [...] Exam Date Time Procedure Performing Provider Status 07/15/20 9:10 PM Chest 2 Views Frontal and Lat [place] (Verified) Notes:(Chest 2 Views Frontal and Lat) Reason For Exam: Chest Pain;Other:RESULT: Chest 2 Views Frontal and Lat Chest 2 Views Frontal and Lat Hx of Present Illness: Pt sts increased SOB since earlier today. Subjective chills. No CP or N v PCPconcerned for CHF exacerbation and recommended pt be seen. Pt reports increased BLE swelling. Cough x1 yr; Reason: Other:; Chest Pain; Clinical Question(s): Other: COMPARISON: None. FINDINGS: LINES AND TUBES: None. LUNGS AND PLEURA: Mildly increased interstitial lung markings. Lungs are otherwise clear with no consolidation. No pleural effusion. No pneumothorax. HEART, MEDIASTINUM AND REY: Heart is normal in size. Normal upper mediastinal and hilar contour. BONES AND SOFT TISSUES: No acute abnormality. IMPRESSION: Mild interstitial edema. No focal consolidation. WSN: [id number] Ordering Physician: Bienvenido Bain Dictated By: Chandler Benitez MD Dictated Date/Time: 07/15/20 9:17 pm Reviewed By: Chandler Benitez MD Signed By: Chandler Benitez MD Signed Date/Time: 07/15/20 9:17 pm Transcribed By: ANAYELI Transcribed Date/Time: 07/15/20 9:14 pm Vital Signs Most recent to oldest 1 2 3 [Reference Range]: Oxygen Saturation [94-100 %] 96 % 98 % 99 % (07/15/20 9:07 PM) (07/15/20 7:28 PM) (07/15/20 7:1 5 PM) Pulse Rate [55-90 bpm] 78 bpm 75 bpm (07/15/20 9:07 PM) (07/15/20 7:28 PM) Blood Pressure [90-138/55-84 mm 132/104 mm Hg 130/74 mm Hg Hg] (07/15/20 9:07 PM) (07/15/20 7:28 PM) Respiratory Rate [16-30 br/min] 22 br/min 24 br/min 22 br/min (07/15/20 9:07 PM) (07/15/20 7:28 PM) (07/15/20 7:1 5 PM) Temperature [96.8-100.4 DegF] 98.5 DegF (07/15/20 7:28 PM) Mode of Delivery (Oxygen) Room air Room air Room a ir (07/15/20 9:07 PM) (07/15/20 7:28 PM) (07/15/20 7:1 5 PM) Blood pressure sites Arm, left Arm, left (07/15/20 9:07 PM) (07/15/20 7:28 PM) Temperature Route Oral (07/15/20 7:28 PM) Weight Obtained Via [facility]TO (07/15/20 7:38 PM) Dry Weight Obtained Via [facility] (07/15/20 7:38 PM) Social History Social History Type Response Smoking Status Never (less than 100 in life time) entered on: 01/01/20 Sex
--- OUTSIDE RECORDS SUMMARY | 2021-12-30 21:46 | XMS_ITS | Continuity of Care Document ---
:1970 Author Organization [facility] Address [address] [place] [address]- Care Team Providers Name Role Phone Go Schwarz MD Primary Care Physician Encounter [facility] Date(s): 08/27/19 - 08/28/[address] [address]- [facility] Encounter Diagnosis Leg pain (Final) - 08/28/19 Discharge Disposition: A-D/C Home Attending Physician: Que Lomas MD Admitting Physician: Que Lomas MD Referring Physician: Not on Staff, Referring MD Allergies, Adverse Reactions, Alerts Substance Reaction Severity Status sulfADIAZINE Rash Active droperidol Anaphylactic reaction Persistent Severe Active penicillins Rash Active Keflex Rash Active Diamox1 C/O: itching Persistent Moderate Active Glutens rash Active 1itchy Immunizations Given and Recorded Vaccine Date Status Refusal Reason influenza virus vaccine, inactivated 03/31/19 Given influenza virus vaccine, inactivated 12/04/17 Recorded pneumococcal 23-valent vaccine1 08/28/15 Recorded tetanus/diphtheria/pertussis, acel(Tdap)3 02/19/13 Record ed Not Given Vaccine Date Status Refusal Reason pneumococcal 23-valent vaccine2 01/04/18 Not Given Patient Refuses 1Result Comment: [05/03/2018] [id number] Comment: [05/03/2018] [id number] Note: pt stated she did not want to receive vaccine today, may want later Medications acetaminophen 500 mg oral tablet TAKE 2 TABLETS BY MOUTH 3 TIMES A DAY NEEDED FOR FEVER Start Date: 08/25/19 Status: OrderedApriso 0.375 g oral capsule, extended release 4 capsule = 1.5 Gm, By Mouth, Daily in AM, # 120 capsule, 3 Refills, Maintenance, 06/16/19 11:33:00 EDT, CR Capsule, [facility]/pharmacy #[id number], 143, cm, 06/09/19 7:23:00 EDT, Height, 91, kg, 06/06/19 18:37:00EDT, Dry Weight Start Date: 06/16/19 Stop Date: 10/14/19 Status: OrderedbuPROPion 150 mg/24 hours (XL) oral tablet, extended release 1 tablet = 150 mg, By Mouth, Every 24 hours, # 30 tablet, 0 Refills, Maintenance, 08/25/19 4:35:00 EDT, ER Tablet Start Date: 08/25/19 Status: Orderedcetirizine 10 mg oral tablet TAKE 1 TABLET BY MOUTH EVERY DAY Start Date: 08/25/19 Status: Orderedcimetidine 200 mg oral tablet TAKE 1 TABLET BY MOUTH EVERY DAY Start Date: 08/25/19 Status: OrderedclonazePAM 1 mg oral tablet = 1 mg, By Mouth, 3 times a day, PRN Anxiety, 0 Refills, Maintenance, 10/04/18 11:33:53 EDT, Tablet Start Date: 10/04/18 Status: OrderedclonazePAM 1 mg oral tablet TAKE 1 TABLET BY MOUTH THREE TIMES A DAY NEEDED MAY TAKE A FOURTH DOSE IF NEEDED Start Date: 08/25/19 Status: OrderedD 1000 IU oral tablet TAKE 1 TABLET BY MOUTH EVERY DAY Start Date: 08/25/19 Status: Ordereddiclofenac 1% topical gel 2 GM TOPICALLY 3 TIMES A DAY Start Date: 08/25/19 Status: Ordereddiclofenac 3% topical gel 1 application, Topically, 2 times a day, # 50 Gm, 0 Refills, Maintenance, 08/10/19 15:44:00 EDT, Gel, [facility]/pharmacy #[id number], 1 application Topically 2 times a day, 142, cm, 08/08/19 8:45:00 EDT, Height, 89, kg, 08/03/19 13:47:00 EDT, Dry Weight Start Date: 08/10/19 Status: Ordereddicyclomine 10 mg oral capsule TAKE 1 CAPSULE BY MOUTH 4 TIMES A DAY Start Date: 08/25/19 Status: Ordereddivalproex sodium 250 mg oral tablet, extended release TAKE 3 TABLETS BY MOUTH AT BEDTIME Start Date: 08/25/19 Status: Ordereddivalproex sodium 500 mg oral enteric coated tablet = 500 mg, By Mouth, 2 times a day, 0 Refills, Maintenance, 12/27/18 11:17:00 EDT, Tablet Start Date: 12/27/18 Status: Ordereddoxycycline hyclate 100 mg oral capsule 1 capsule = 100 mg, By Mouth, 2 times a day, for 10 days, stop clindamycin, # 20 capsule, 0 Refills,Acute 09/03/19 11:09:00 EDT, 08/24/19 11:09:00 EDT, Capsule, [facility]/pharmacy #[id number], 142, cm, 08/08/19 8:45:00 EDT, Height, 89, kg, 08/03/19 13:47:00 EDT,... Start Date: 08/24/19 Stop Date: 09/03/19 Status: Orderedduloxetine 60 mg oral enteric coated capsule 1 capsule = 60 mg, By Mouth, Daily, # 30 capsule, 0 Refills, Maintenance, 08/25/19 4:35:00 EDT, EC Capsule Start Date: 08/25/19 Status: OrderedDupixent Subcutaneous Infusion, Once, 0 Refills, Maintenance, 05/30/19 15:33:00 EST Start Date: 05/30/19 Status: OrderedLatuda 20 mg oral tablet 1 tablet = 20 mg, By Mouth, Daily, # 30 tablet, 0 Refills, Maintenance, 08/25/19 4:35:00 EDT, Tablet Start Date: 08/25/19 Status: Orderedlevothyroxine 0.137 mg oral tablet 1 tablet = 137 mcg, By Mouth, Daily, # 30 tablet, 0 Refills, Maintenance, 08/25/19 4:35:00 EDT, Tablet Start Date: 08/25/19 Status: Orderedmagnesium citrate 8.85% oral liquid 150 mL = 8.725 Gm, By Mouth, Once, # 300 mL, 0 Refills, Soft Stop, 04/28/19 17:14:00 EST, Liquid, [facility]/pharmacy #[id number], 150 mL By Mouth Once, 142, cm, 04/28/19 9:05:00 EST, Height, 92.6, kg, 03/30/19 10:30:00 EST, Dry Weight Start Date: 04/28/19 Status: Orderedmagnesium oxide 400 mg oral tablet TAKE 1 TABLET BY MOUTH EVERY DAY Start Date: 08/25/19 Status: Orderedmeloxicam 7.5 mg oral tablet 1 tablet = 7.5 mg, By Mouth, Daily, # 30 tablet, 0 Refills, Maintenance, 08/25/19 4:35:00 EDT, Tablet Start Date: 08/25/19 Status: Orderedmeloxicam 7.5 mg oral tablet 1 tablet, By Mouth, Daily, # 30 tablet, 0 Refills, Maintenance, 08/23/19 8:24:00 EDT, [id number], 142, cm, 08/08/19 8:45:00 EDT, Height, 89, kg, 08/03/19 13:47:00 EDT, Dry Weight Start Date: 08/23/19 Status: Orderedmontelukast 10 mg oral tablet 10 mg, 1, tablet, By Mouth, Daily, Refills 0, Maintenance, 08/25/19 4:35:00 EDT Start Date: 08/25/19 Status: Orderednystatin 764638 u/ml oral suspension 1 mL = 100,000 units, By Mouth, 4 times a day, # 30 mL, 0 Refills, Maintenance, 08/25/19 4:36:00 EDT, Suspension Start Date: 08/25/19 Status: Orderedondansetron 4 mg oral tablet 1 tablet = 4 mg, By Mouth, Every 8 hours, PRN as needed for nausea and vomiting, # 15 tablet, 0 Refills, Maintenance, 08/10/19 15:44:00 EDT, Tablet, [facility]/pharmacy #[id number], 142, cm, 08/08/19 8:45:00 EDT, Height, 89, kg, 08/03/19 13:47:00 EDT, Dry Weight Start Date: 08/10/19 Status: Orderedondansetron 4 mg oral tablet 1 tablet = 4 mg, By Mouth, Every 8 hours, PRN as needed for nausea/vomiting, 0 Refills, Maintenance,08/25/19 4:35:00 EDT, Tablet Start Date: 08/25/19 Status: Orderedpantoprazole 20 mg oral delayed release tablet TAKE 1 TABLET BY MOUTH TWICE A DAY Start Date: 08/25/19 Status: Orderedprazosin 5 mg oral capsule 5 mg, By Mouth, Daily at bedtime, Refills 0, Maintenance, 10/04/18 11:36:58 EDT Start Date: 10/04/18 Status: Orderedpregabalin 75 mg oral capsule 1 capsule = 75 mg, By Mouth, 2 times a day, # 60 capsule, 0 Refills, Maintenance, 08/25/19 4:35:00 EDT, Capsule Start Date: 08/25/19 Status: OrderedProAir HFA 90 mcg/inh inhalation aerosol with adapter 180 mcg, 2, puffs, Inhalation, Every 4 hours, PRN, Refills 0, Maintenance, 10/04/18 11:33:33 EDT, Inhaler Start Date: 10/04/18 Status: OrderedQUEtiapine 300 mg oral tablet 1 tablet = 300 mg, By Mouth, Daily at bedtime, # 30 tablet, 0 Refills, Maintenance, 08/25/19 4:35:00EDT, Tablet Start Date: 08/25/19 Status: OrderedtiZANidine 2 mg oral capsule TAKE 1 CAPSULE BY MOUTH 3 TIMES A DAY NEEDED FOR MUSCLE SPASMS Start Date: 08/25/19 Status: OrderedtraMADol 50 mg oral tablet TAKE 1 TABLET BY MOUTH EVERY 12 HOURS NEEDED FOR PAIN FOR 3 DAYS Start Date: 08/25/19 Status: OrderedtraZODone 150 mg oral tablet TAKE 1 TO 2 TABLETS BY MOUTH EVERY DAY AT BEDTIME Start Date: 08/25/19 Status: OrderedtraZODone 300 mg oral tablet By Mouth, Daily at bedtime, 0 Refills, Maintenance, 10/04/18 11:38:13 EDT, Tablet Start Date: 10/04/18 Status: OrderedTrulance 3 mg oral tablet 0 Refills, Maintenance, 08/25/19 4:35:00 EDT Start Date: 08/25/19 Status: Ordered Problem List Condition Effective Dates Status Health Status Informant Gait abnormality(Confirmed) Active Anemia(Confirmed) Active Asthma(Confirmed) Active Pseudotumor cerebri(Confirmed) Active Binge eating disorder, severe, in Active partial remission(Confirmed) Celiac disease(Confirmed) Active Chronic back pain(Confirmed) Active Constipation(Confirmed) Active Fibromyalgia(Confirmed) Active GERD (gastroesophageal reflux Active disease)(Confirmed) History of back injury(Confirmed) Active History of self mutilation(Confirmed) Active Headache(Confirmed) Active HTN (hypertension)(Confirmed) Active Hypothyroidism(Confirmed) Active Lymphocytic colitis(Confirmed) Active Anemia, macrocytic(Confirmed) Active Major depression(Confirmed) Active Migraines(Confirmed) Active Anxiety and depression(Confirmed) Active Mood disorder(Confirmed) Active Nausea(Confirmed) Active TRISTAN on CPAP(Confirmed) Active Paresthesias(Confirmed) Active PTSD (post-traumatic stress Active disorder)(Confirmed) Ulcerative colitis(Confirmed) Active Vital Signs Most recent to oldest 1 2 3 [Reference Range]: Oxygen Saturation [94-100 %] 97 % 100 % 100 % (08/28/19 5:53 AM) (08/28/19 2:09 AM) (08/27/19 11: 25 PM) Pulse Rate [55-90 bpm] 82 bpm 75 bpm 81 bpm (08/28/19 5:53 AM) (08/28/19 2:09 AM) (08/27/19 11: 25 PM) Blood Pressure [90-138/55-84 134/83 mm Hg 136/77 mm Hg 128 /105 mm Hg mm Hg] (08/28/19 5:53 AM) (08/28/19 2:12 AM) (08/27/19 11: 25 PM) Respiratory Rate [16-30 16 br/min 17 br/min 18 br/mi n br/min] (08/28/19 5:53 AM) (08/28/19 5:30 AM) (08/28/19 2:0 9 AM) Temperature [96.8-100.4 DegF] 97.7 DegF 97.8 DegF 98 .7 DegF (08/28/19 2:09 AM) (08/27/19 11:25 PM) (08/27/19 7: 51 PM) Mode of Delivery (Oxygen) Room air Room air (08/28/19 5:53 AM) (08/27/19 11:25 PM) Blood pressure sites Arm, right (08/28/19 5:53 AM) Temperature Route Oral Oral Oral (08/28/19 2:09 AM) (08/27/19 11:25 PM) (08/27/19 7: 51 PM) Social History Social History Type Response Smoking Status Never smoker; Tobacco user i n household: No entered on: 10/25/14 Sex
--- OUTSIDE RECORDS SUMMARY | 2021-12-30 21:46 | XMS_ITS | Continuity of Care Document ---
:1970 Author Organization [facility] Address [address] [place] [address]- Care Team Providers Name Role Phone Go Schwarz MD Primary Care Physician Encounter [facility] [id number] Date(s): 07/14/19 - 07/21/19 [facility] [address] [place] [id number]- [facility] Attending Physician: Bipin Dias MD Allergies, Adverse Reactions, Alerts Substance Reaction [...] Not Given Patient Refuses 1Result Comment: [05/03/2018] [id number] Comment: [05/03/2018] [id number] Note: pt stated she did not want [...] Refills, Soft Stop, 04/28/19 17:14:00 EST, Liquid, [facility]/pharmacy #[id number], 150 mL By Mouth Once, 142, [...]
--- OUTSIDE RECORDS SUMMARY | 2021-12-30 21:46 | XMS_ITS | Continuity of Care Document ---
:1970 Author Organization [facility] Address [address] [place] [id number]- Care Team Providers Name Role Phone Pbjonas Nasima FAITH Primary Care Physician [place] [facility] [place]s): 10/10/20 - 11/09/20 [facility] [address] [place] [id number]- Allergies, Adverse Reactions, Alerts Substance Reaction Severity [...] Not Given Patient Refuses 1Result Comment: [05/03/2018] [id number] Comment: [05/03/2018] [id number] Note: pt stated she did not want to receive vaccine today, may want later Medications acetaminophen 325 mg oral tablet 650 mg, 2, tablet, By Mouth, Every 4 hours, PRN, for 14 days, # 100 tablet, Refills 0, Tot. Refills 0, Acute 11/18/20 23:32:00 EDT, as needed for pain, 11/04/20 23:32:00 EDT, Route to Pharmacy Electronically, [facility]/pharmacy #[id number], Partial fill upon meeta... Start Date: 11/04/20 Stop Date: 11/18/20 Status: Orderedalbuterol-ipratropium 3 mg-0.5 mg/3 ml inhalation solution 3 mL, Inhalation, 4 times a day, # 360 mL, 1 Refills, Maintenance, 12/13/19 8:19:00 EDT, Inhalation Solution, [facility] 3, 3 mL Inhalation 4 times a [...] tablet, 1 Refills, Maintenance, 12/02/19 14:20:00 EDT, [facility]/pharmacy #[id number], 1 tablet By Mouth Daily, [...] capsule, 3 Refills, Maintenance, 09/28/20 7:41:00 EDT, [facility]/pharmacy #[id number], 143, cm, 09/20/20 19:45:00 EDT, Height, 106.6, kg, 09/20/20 19:45:00 EDT, Dry Weight Start Date: 09/28/20 Stop Date: 01/26/21 Status: Orderedduloxetine 60 mg oral enteric coated capsule 1 capsule, By Mouth, Daily, # 30 capsule, 0 Refills, Maintenance, 11/21/19 12:43:00 EDT, [facility], 142, cm, 11/16/19 8:05:00 EDT, Height, 90.7, kg, 10/11/19 1:24:00 EDT, Dry Weight Start Date: 11/21/19 Status: OrderedDupixent 300 mg/2 mL subcutaneous solution 0 Refills, Maintenance, 11/17/19 4:27:00 EDT Start Date: 11/17/19 Status: Orderedfluticasone 50 mcg/inh nasal spray 1 sprays, Nares, Both, 2 times a day, 0 Refills, Maintenance, 11/17/19 4:21:00 EDT, [place] Start Date: 11/17/19 Status: Orderedibuprofen 200 mg oral tablet 400 mg, 2, tablet, By Mouth, Every 4 hours, PRN, for 14 days, # 100 tablet, Refills 0, Tot. Refills 0, Acute 11/18/20 23:32:00 EDT, for pain, 11/04/20 23:32:00 EDT, Route to Pharmacy Electronically, [facility]/pharmacy #[id number], Partial fill upon patient reques... Start Date: 11/04/20 Stop Date: 11/18/20 Status: Orderedlamotrigine 25 mg oral tablet 25 [...] tablet, 0 Refills, Maintenance, 01/30/20 14:58:00 EST, [facility], 143, cm, 01/14/20 22:55:00 EDT, Height, 101, kg, 01/14/20 22:55:00 EDT, Dry Weight Start Date: 01/30/20 Status: Orderedlidocaine 4% topical film 1 patch, Topically, Daily, # 30 patch, 0 Refills, Maintenance, 01/06/20 10:41:00 EDT, Film, [facility] 3, 142, cm, 01/06/20 8:20:00 EDT, Height, 103, kg, 01/04/20 18:55:00 EDT, Dry Weight Start Date: 01/06/20 Stop Date: 02/05/20 Status: Orderedlidocaine 5% topical film 1 patch, Topically, Daily, PRN Pain , Mild, remove after 12 hours, # 13 each, 0 Refills, Maintenance, 11/04/20 23:32:00 EDT, Film, [facility]/pharmacy #[id number], Partial fill upon patient request if the prescription is for a schedule II opioid drug., 1 patch Top... Start Date: 11/04/20 Status: Orderedmagnesium oxide 400 mg (240 mg elemental magnesium) oral tablet 1 tablet, By Mouth, Daily, # 90 tablet, 3 Refills, Acute, 04/10/20 10:44:00 EST, [facility], 90, TAKE 1 TABLET BY MOUTH EVERY [...] 0 Refills, Maintenance, 12/19/19 13:39:00 EDT, Tablet, [facility]/pharmacy #[id number], 142, cm, 12/15/19 7:46:00 EDT, [...]
--- OUTSIDE RECORDS SUMMARY | 2021-12-30 21:47 | XMS_ITS | Continuity of Care Document ---
:1970 Author Organization [facility] Address [address] [place] [id number]- Care Team Providers Name Role Phone Fidel Sheffield MD, Mohan Primary Care Physician [phone] Encounter [facility] Date(s): 03/29/19 - 04/01/[address] [address]- [facility] Encounter Diagnosis Jejunitis (Final) - 03/30/19 Discharge Disposition: A-D/C Home Attending Physician: Edith Navarro MD Admitting Physician: Adrian Emmanuel MD Referring Physician: Not on Staff, Referring [...] Not Given Patient Refuses 1Result Comment: [05/03/2018] [id number] Comment: [05/03/2018] [id number] Note: pt stated she did not want to receive vaccine today, may want later Medications Apriso 0.375 g oral capsule, extended release 4 capsule = 1.5 Gm, By Mouth, Daily in AM, # 120 capsule, 0 Refills, Maintenance, 12/15/18 20:46:53 EDT, CR Capsule Start Date: 12/15/18 Status: OrderedbuPROPion 200 mg/12 hours (SR) oral tablet, extended release 1 tablet = 200 mg, By Mouth, 2 times a day before breakfast and dinne, # 60 tablet, 0 Refills, Maintenance, 12/27/18 11:15:10 EDT, ER Tablet Start Date: 12/27/18 Stop Date: 01/26/19 Status: Orderedcetirizine 10 mg oral tablet See Instructions, # 30 tablet, Refills 4 Tot. Refills 4, TAKE 1 TABLET BY MOUTH EVERY DAY, [facility]/pharmacy #[id number] Start Date: 12/06/18 Status: OrderedclonazePAM 1 mg oral tablet = 1 mg, By Mouth, 3 times a day, PRN Anxiety, 0 Refills, Maintenance, 10/04/18 11:33:53 EDT, Tablet Start Date: 10/04/18 Status: Ordereddicyclomine 10 mg oral capsule 1 capsule = 10 mg, By Mouth, 4 times a day, # 28 capsule, 0 Refills, Maintenance, 12/06/18 9:44:13 EDT, Capsule Start Date: 12/06/18 Stop Date: 12/13/18 Status: Ordereddivalproex sodium 500 mg oral enteric coated tablet = 500 mg, By Mouth, 2 times a day, 0 Refills, Maintenance, 12/27/18 11:17:00 EDT, Tablet Start Date: 12/27/18 Status: OrderedDulcolax 5 mg oral enteric coated tablet 2 tablet = 10 mg, By Mouth, Daily, PRN for constipation, # 50 tablet, 0 Refills, Acute 07/07/19 11:00:00 EDT, 04/01/19 13:49:00 EST, EC Tablet, [facility]/pharmacy #[id number], 142, cm, 04/01/19 11:22:00 EST, Height, 92.6, kg, 03/30/19 10:30:00 EST, Dry Weight Start Date: 04/01/19 Stop Date: 07/07/19 Status: Orderedduloxetine 60 mg oral enteric coated capsule = 120 mg, By Mouth, Daily, 0 Refills, Maintenance, 10/04/18 11:34:58 EDT, Capsule Start Date: 10/04/18 Status: OrderedLinzess 290 mcg oral capsule 1 capsule = 290 mcg, By Mouth, Daily, # 30 capsule, 2 Refills, Maintenance, 04/01/19 13:47:00 EST, Capsule, [facility]/pharmacy #[id number], 142, cm, 04/01/19 11:22:00 EST, Height, 92.6, kg, 03/30/19 10:30:00 EST, Dry Weight Start Date: 04/01/19 Status: Orderedmagnesium oxide 400 mg oral tablet 1 tablet = 400 mg, By Mouth, Daily, # 10 tablet, 0 Refills, Maintenance, 12/06/18 9:37:29 EDT, Tablet Start Date: 12/06/18 Stop Date: 12/16/18 Status: OrderedMiraLax oral powder for reconstitution = 17 Gm, By Mouth, Daily, dissolve in water before taking, # 255 Gm, 1 Refills, Acute 06/23/19 11:00:00 EDT, 04/01/19 13:47:00 EST, REC Powder, [facility]/pharmacy #[id number], 17 Gm By Mouth Daily,Instr:dissolve in water before taking, 142, cm, 04/01/19 11:22:00... Start Date: 04/01/19 Stop Date: 06/23/19 Status: OrderedMontelukast = 10 mg, By Mouth, [...] 11:33:33 EDT, Inhaler Start Date: 10/04/18 Status: OrderedSenna Plus 50 mg-8.6 mg oral tablet 2 tablet, By Mouth, Daily at bedtime, PRN Constipation, # 60 tablet, 0 Refills, Acute 06/09/19 11:00:00 EDT, 04/01/19 13:48:00 EST, Tablet, [id number], 2 tablet By Mouth Daily at bedtime,PRN:Constipation, 142, cm, 04/01/19 11:22:00 EST, Height... Start Date: 04/01/19 Stop Date: 06/09/19 Status: Orderedsimethicone 80 mg oral tablet, chewable [...] 11:38:13 EDT, Tablet Start Date: 10/04/18 Status: OrderedTylenol 325 mg oral tablet 975 mg, By Mouth, 3 times a day, PRN, Refills 0, Maintenance, Pain , Moderate, 10/04/18 11:38:25 EDT Start Date: 10/04/18 Status: Ordered Problem List [...] (post-traumatic stress Active disorder)(Confirmed) Ulcerative colitis(Confirmed) Active Results Radiology Reports Exam Date Time Procedure Performing Provider Status 03/31/19 10:12 PM Abdomen AP [place] (Verified) Notes:(Abdomen AP) Reason For Exam: PainRESULT: Abdomen AP Abdomen AP Refer to EMR; Reason: Pain; Clinical Question(s): Free Air; Special Instructions: upright; Hx of Present Illness: +n v x 2 weeks with constipation. +sharp luq abd pain since 1500- no fever; no sob, butpt feels as though she cannot take a deep breath because the pain grabs her. Pain rates 9 10- no fl ank pain; no gu changes; Other Objective Findings: alert, color pink, skin w d resps' regula COMPARISON: CT from previous day. FINDINGS: Left lateral decubitus AP view of the abdomen. No air-fluid levels. No pneumoperitoneum. Mild retention of stool.. No acute bony abnormalities. IMPRESSION: No free air. No evidence for bowel obstruction. Mild constipation. WSN: [id number] Dictated By: Rajat Shelton MD Dictated Date/Time: 03/31/19 11:42 p Reviewed By: Rajat Shelton MD Signed By: Rajat Shelton MD Signed Date/Time: 03/31/19 11:42 pm Transcribed By: ANAYELI Transcribed Date/Time: 03/31/19 11:40 pm Exam Date Time Procedure Performing Provider Status 03/29/19 10:34 PM Chest 2 Views Frontal and Lat Ruddy Harmon; [place] (Verified) Notes:(Chest 2 Views Frontal and Lat) Reason For Exam: Shortness of Breath, Fever;Other:RESULT: Chest 2 Views Frontal and Lat Chest 2 Views Frontal and Lat Refer to EMR; Reason: Other:; Shortness of Breath, Fever; Clinical Question(s): Pneumonia; Hx of Present Illness: +n v x 2 weeks with constipation. +sharp luq abd pain since 1500- no fever; no sob, butpt feels as though she cannot take a deep breath because the pain grabs her. Pain rates 9 10- no flank pain; no gu changes; Other Objective Findings: alert, color pink, skin w d resps' regula COMPARISON: 02/19/2019. FINDINGS: LINES AND TUBES: None. LUNGS AND PLEURA: Clear lungs. Normal pulmonary vascularity. No pleural effusion. No pneumothorax. HEART, MEDIASTINUM AND REY: Heart is normal in size. Normal mediastinal and hilar contour. BONES AND SOFT TISSUES: No acute abnormality. There is a biconcave S-shaped scoliosis of the thoracolumbar spine. Mild thoracic disc space narrowing incidentally noted. IMPRESSION: No acute cardiopulmonary pathology. Mild scoliosis and degenerative disc space narrowing. WSN: [id number] Dictated By: Rajat Shelton MD Dictated Date/Time: 03/29/19 10:37 p Reviewed By: Rajat Shelton MD Signed By: Rajat Shelton MD Signed Date/Time: 03/29/19 10:37 pm Transcribed By: ANAYELI Transcribed Date/Time: 03/29/19 10:36 pm Vital Signs Most recent to oldest [Reference 1 2 3 Range]: Height 142 cm 142 cm 142 cm (04/01/19 11:22 AM) (04/01/19 7:15 AM) (04/01/19 4:35 AM) Weight 92.6 kg (03/30/19 10:30 AM) Oxygen Saturation [94-100 %] 97 % 98 % 96 % (04/01/19 11:22 AM) (04/01/19 7:15 AM) (04/01/19 4:35 AM) Pulse Rate [55-90 bpm] 73 bpm 80 bpm 81 bpm (04/01/19 11:22 AM) (04/01/19 7:15 AM) (04/01/19 4:35 AM) Body Mass Index [18.5-24.99] 45.92 *>HHI* (03/30/19 10:30 AM) Blood Pressure [90-138/55-84 mm 105/64 mm Hg 92/49 mm Hg 98/50 mm Hg Hg] (04/01/19 11:22 AM) (04/01/19 7:15 AM) (04/01/19 4:35 AM) Respiratory Rate [16-30 br/min] 18 br/min 20 br/min 20 br/min (04/01/19 2:10 PM) (04/01/19 11:22 AM) (04/01/19 7:15 AM) Temperature [96.8-100.4 DegF] 98.3 DegF 98.0 DegF 97 .9 DegF (04/01/19 11:22 AM) (04/01/19 7:15 AM) (04/01/19 4:35 AM) Mode of Delivery (Oxygen) Room air Room air Room a ir (04/01/19 11:22 AM) (04/01/19 7:15 AM) (04/01/19 4:35 AM) Blood pressure sites Arm, right Arm, right Arm, right (04/01/19 11:22 AM) (04/01/19 7:15 AM) (04/01/19 4:35 AM) Temperature Route Oral Oral Oral (04/01/19 11:22 AM) (04/01/19 7:15 AM) (04/01/19 4:35 AM) Dry Weight 92.6 kg (03/30/19 10:30 AM) Social History Social History Type Response Smoking Status Never smoker; Tobacco user i n household: No entered on: 10/25/14 Sex Female
--- OUTSIDE RECORDS SUMMARY | 2021-12-30 21:47 | XMS_ITS | Continuity of Care Document ---
:1970 Author Organization [facility] Address [address] [place] [address]- Care Team Providers Name Role Phone Sylvain FAITH Nasima Primary Care Physician [place] [facility] [place]): 09/25/20 - 10/25/20 [facility] [address] [place] [id number]- Allergies, Adverse Reactions, Alerts Substance Reaction Severity [...] Not Given Patient Refuses 1Result Comment: [05/03/2018] [id number] Comment: [05/03/2018] [id number] Note: pt stated she did not want to receive vaccine today, may want later Medications albuterol-ipratropium 3 mg-0.5 mg/3 ml inhalation solution 3 mL, Inhalation, 4 times a day, # 360 mL, 1 Refills, Maintenance, 12/13/19 8:19:00 EDT, Inhalation Solution, [facility], 3 mL Inhalation 4 times a day, 141, cm, 12/07/19 12:18:00 EDT, Height, 100.5, kg, 12/05/19 3:32:00 EDT, Dry Weight Start Date: 12/13/19 Status: OrderedApriso 0.375 g oral capsule, extended release 4 capsule = 1.5 Gm, By Mouth, Daily in AM, # 120 capsule, 4 Refills, Maintenance, 09/07/20 8:50:00 EDT, CR Capsule, [facility]/pharmacy #[id number], Partial fill upon patient request [...] capsule, 3 Refills, Maintenance, 09/28/20 7:41:00 EDT, [facility]/pharmacy #[id number], 143, cm, 09/20/20 19:45:00 EDT, Height, 106.6, kg, 09/20/20 19:45:00 EDT, Dry Weight Start Date: 09/28/20 Stop Date: 01/26/21 Status: Orderedduloxetine 60 mg oral enteric coated capsule 1 capsule, By Mouth, Daily, # 30 capsule, 0 Refills, Maintenance, 11/21/19 12:43:00 EDT, [facility] STORE [id number], 142, cm, 11/16/19 8:05:00 EDT, Height, 90.7, kg, 10/11/19 1:24:00 EDT, Dry Weight Start Date: 11/21/19 Status: OrderedDupixent 300 mg/2 mL subcutaneous solution 0 Refills, Maintenance, 11/17/19 4:27:00 EDT Start Date: 11/17/19 Status: Orderedfluticasone 50 mcg/inh nasal spray 1 sprays, Nares, Both, 2 times a day, 0 Refills, Maintenance, 11/17/19 4:21:00 EDT, [place] Start Date: 11/17/19 Status: Orderedlamotrigine 25 mg oral tablet 25 mg, 1, tablet, By Mouth, 2 times a day, # 60 tablet, Refills 0, Maintenance, 11/17/19 4:23:00 EDT Start Date: 11/17/19 Status: OrderedLasix 20 mg oral tablet 20 mg, 1, tablet, By Mouth, Daily, # 7 tablet, Refills 0, Tot. Refills 0, Maintenance, 07/15/20 22:03:00 EDT, Route to Pharmacy Electronically, [facility]/pharmacy #[id number], Partial fill upon patient request [...] Refills, Maintenance, 01/30/20 14:58:00 EST, [id number], 143, cm, 01/14/20 22:55:00 EDT, Height, 101, kg, 01/14/20 22:55:00 EDT, Dry Weight Start Date: 01/30/20 Status: Orderedlidocaine 4% topical film 1 patch, Topically, Daily, # 30 patch, 0 Refills, Maintenance, 01/06/20 10:41:00 EDT, Film, [facility] 3, 142, cm, 01/06/20 8:20:00 EDT, Height, 103, kg, 01/04/20 18:55:00 EDT, Dry Weight Start Date: 01/06/20 Stop Date: 02/05/20 Status: Orderedmagnesium oxide 400 mg (240 mg elemental magnesium) oral tablet 1 tablet, By Mouth, Daily, # 90 tablet, 3 Refills, Acute, 04/10/20 10:44:00 EST, [id number], 90, TAKE 1 TABLET BY MOUTH EVERY [...] 0 Refills, Maintenance, 12/19/19 13:39:00 EDT, Tablet, [facility]/pharmacy #[id number], 142, cm, 12/15/19 7:46:00 EDT, [...] 3 Refills, Maintenance, 01/10/20 7:53:00 EDT, Capsule, [facility]/pharmacy #[id number], 142, cm, 01/08/20 22:31:00 EDT, Height, [...]
--- OUTSIDE RECORDS SUMMARY | 2021-12-30 21:47 | XMS_ITS | Continuity of Care Document ---
:1970 Author Organization [facility] Address [address] [place] [address]- Care Team Providers Name Role Phone Go Schwarz MD Primary Care Physician Encounter [facility] [place] Date(s): 10/03/19 - 11/02/[address] [address]- [facility] Allergies, Adverse Reactions, Alerts Substance Reaction Severity [...] Not Given Patient Refuses 1Result Comment: [05/03/2018] [id number] Comment: [05/03/2018] [id number] Note: pt stated she did not want to receive vaccine today, may want later Medications acetaminophen 500 mg oral tablet TAKE 2 TABLETS BY MOUTH 3 TIMES A DAY NEEDED FOR FEVER Start Date: 08/25/19 Status: Orderedalbuterol-ipratropium 3 mg-0.5 mg/3 ml inhalation solution 3 mL, Inhalation, 4 times a day, PRN Wheezing/Shortness of Breath, Dx: J44.9, # 180 mL, 1 Refills, Maintenance, 10/15/19 17:42:00 EDT, Solution, [id number], 3 mL Inhalation 4 times a day,PRN:Wheezing/Shortness of Breath,Instr:Dx: J44.9, 140, c... Start Date: 10/15/19 Status: OrderedAzithromycin 5 Day Dose Pack 250 mg oral tablet 1 pack/packet, By Mouth, Once, Take 2 tablets daily for first day then 1 tablet daily x 4 days, # 6 tablet, 0 Refills, Soft Stop, 10/11/19 13:41:00 EDT, Tablet, [facility]/pharmacy #[id number], 140, cm, 10/11/19 1:24:00 EDT, Height, 90.7, kg, 10/11/19 1:24:00 EDT,... Start Date: 10/11/19 Status: OrderedbuPROPion 150 mg/24 hours (XL) oral tablet, extended release 1 tablet = 150 mg, By Mouth, Every 24 hours, # 30 tablet, 0 Refills, Maintenance, 08/25/19 4:35:00 EDT, ER Tablet Start Date: 08/25/19 Status: Orderedcetirizine 10 mg oral tablet 1 tablet = 10 mg, By Mouth, Daily, TAKE 1 TABLET BY MOUTH EVERY DAY, # 30 tablet, 0 Refills, Maintenance, 10/11/19 18:17:00 EDT, Tablet, [facility]/pharmacy #[id number], 140, cm, 10/11/19 1:24:00 EDT, Height, 90.7,kg, 10/11/19 1:24:00 EDT, Dry Weight Start Date: 10/11/19 Stop Date: 11/10/19 Status: Orderedcimetidine 200 mg oral tablet TAKE [...] EVERY DAY Start Date: 08/25/19 Status: Ordereddiclofenac 3% topical gel 1 application, Topically, 2 times a day, # 50 Gm, 0 Refills, Maintenance, 09/09/19 19:51:00 EDT, Gel, [facility]/pharmacy #[id number], 1 application Topically 2 times a day, 142, cm, 09/07/19 23:12:00 EDT, Height, 91, kg, 09/07/19 23:12:00 EDT, Dry Weight Start Date: 09/09/19 Status: Ordereddicyclomine 10 mg oral capsule TAKE 1 CAPSULE BY MOUTH 4 TIMES A DAY Start Date: 08/25/19 Status: Ordereddivalproex sodium 500 mg oral enteric coated tablet = 500 mg, By Mouth, 2 times a day, 0 Refills, Maintenance, 12/27/18 11:17:00 EDT, Tablet Start Date: 12/27/18 Status: Orderedduloxetine 60 mg oral enteric coated capsule 1 capsule = 60 mg, By Mouth, Daily, # 30 capsule, 0 Refills, Maintenance, 10/27/19 19:52:00 EDT, Capsule, [facility]/pharmacy #[id number], 140, cm, 10/11/19 1:24:00 EDT, Height, 90.7, kg, 10/11/19 1:24:00 EDT, Dry Weight Start Date: 10/27/19 Status: OrderedDupixent Subcutaneous Infusion, Once, 0 Refills, Maintenance, 05/30/19 15:33:00 EST Start Date: 05/30/19 Status: OrderedDupixent Subcutaneous Infusion, Once, 0 Refills, Maintenance, 10/01/19 20:51:00 EDT Start Date: 10/01/19 Status: Orderedfurosemide 20 mg oral tablet 2, tablet, By Mouth, 2 times a day, # 60 tablet, Refills 2, Tot. Refills 0, Maintenance, 10/24/19 8:56:00 EDT, Route to Pharmacy Electronically, [facility] STORE [id number], 140, cm, 10/11/19 1:24:00 EDT, Height, 90.7, kg, 10/11/19 1:24:00 EDT, Dry Weight Start Date: 10/24/19 Status: OrderedLatuda 20 mg oral tablet 1 tablet = 20 mg, By Mouth, Daily, # 30 tablet, 0 Refills, Maintenance, 08/25/19 4:35:00 EDT, Tablet Start Date: 08/25/19 Status: Orderedlevothyroxine 0.137 mg oral tablet 1 tablet, By Mouth, Daily, # 30 tablet, 5 Refills, Maintenance, 10/20/19 9:31:00 [id number], cm, 10/11/19 1:24:00 EDT, Height, 90.7, kg, 10/11/19 1:24:00 EDT, Dry Weight Start Date: 10/20/19 Stop Date: 04/17/20 Status: Orderedmagnesium citrate 8.85% oral liquid 150 mL = 8.725 Gm, By Mouth, Once, # 300 mL, 0 Refills, Soft Stop, 04/28/19 17:14:00 EST, Liquid, [facility]/pharmacy #[id number], 150 mL By Mouth Once, 142, cm, 04/28/19 9:05:00 EST, Height, 92.6, kg, 03/30/19 10:30:00 EST, Dry Weight Start Date: 04/28/19 Status: Orderedmagnesium oxide 400 mg oral tablet TAKE 1 TABLET BY MOUTH EVERY DAY Start Date: 08/25/19 Status: Orderedmeloxicam 7.5 mg oral tablet 1 tablet, By Mouth, Daily, # 30 tablet, 0 Refills, Maintenance, 10/27/19 13:05:00 EDT, [facility] STORE [id number], 140, cm, 10/11/19 1:24:00 EDT, Height, 90.7, kg, 10/11/19 1:24:00 EDT, Dry Weight Start Date: 10/27/19 Status: Orderedmontelukast 10 mg oral tablet 10 mg, 1, tablet, By Mouth, Daily, Refills 0, Maintenance, 08/25/19 4:35:00 EDT Start Date: 08/25/19 Status: OrderedNebulizer/Compressor See Instructions, # 1 each, Refills 0, Tot. Refills 0, Maintenance, For use with updraft treatments using ipratropium-albuterol, 10/14/19 15:01:00 EDT, Supply Start Date: 10/14/19 Status: Orderednystatin 504453 u/ml oral suspension 1 mL = 100,000 units, By Mouth, 4 times a day, # 30 mL, 0 Refills, Maintenance, 08/25/19 4:36:00 EDT, Suspension Start Date: 08/25/19 Status: Orderedondansetron 4 mg oral tablet 1 tablet = 4 mg, By Mouth, Every 8 hours, PRN as needed for nausea and vomiting, # 15 tablet, 0 Refills, Maintenance, 08/10/19 15:44:00 EDT, Tablet, [facility]/pharmacy #[id number], 142, cm, 08/08/19 8:45:00 EDT, Height, 89, kg, 08/03/19 13:47:00 EDT, Dry Weight Start Date: 08/10/19 Status: Orderedprazosin 5 mg oral capsule 5 mg, By Mouth, Daily at bedtime, Refills 0, Maintenance, 10/04/18 11:36:58 EDT Start Date: 10/04/18 Status: OrderedpredniSONE 20 mg oral tablet See Instructions, Take 3 tablets daily x 3 days then 2 tablets daily x 3 days then 1 tablet daily x 3 days then 0.5 tablet daily x 3 days then d/c, # 20 tablet, 0 Refills, Maintenance, 10/14/19 14:35:00 EDT, Tablet, [facility]/pharmacy #[id number], 140, cm, ... Start Date: 10/14/19 Status: Orderedpregabalin 75 mg oral capsule 1 capsule = 75 mg, By Mouth, 2 times a day, # 60 capsule, 0 Refills, Maintenance, 08/25/19 4:35:00 EDT, Capsule Start Date: 08/25/19 Status: OrderedProAir HFA 90 mcg/inh inhalation aerosol with adapter 180 mcg, 2, puffs, Inhalation, Every 4 hours, PRN, Refills 0, Maintenance, 10/04/18 11:33:33 EDT, Inhaler Start Date: 10/04/18 Status: OrderedPromethazine DM 6.25 mg-15 mg/5 mL oral syrup 5 mL, By Mouth, Every 6 hours, PRN for cough, # 120 mL, 0 Refills, Maintenance, 10/11/19 13:42:00 EDT, Syrup, [facility]/pharmacy #[id number], 5 mL By Mouth Every 6 hours,PRN:for cough, 140, cm, 10/11/19 1:24:00 EDT, Height, 90.7, kg, 10/11/19 1:24:00 EDT, Dry Weight Start Date: 10/11/19 Status: OrderedProtonix 20 mg oral delayed release tablet = 20 mg, By Mouth, 2 times a day, # 60 tablet, 2 Refills, Maintenance, 10/17/19 20:12:00 EDT, [facility] Tablet, 140, cm, 10/11/19 1:24:00 EDT, Height, 90.7, kg, 10/11/19 1:24:00 EDT, Dry Weight Start Date: 10/17/19 Stop Date: 01/15/20 Status: OrderedQUEtiapine 300 mg oral tablet 1 tablet = 300 mg, By Mouth, Daily at bedtime, # 30 tablet, 0 Refills, Maintenance, 08/25/19 4:35:00EDT, Tablet Start Date: 08/25/19 Status: OrderedtiZANidine 2 mg oral capsule TAKE 1 CAPSULE BY MOUTH 3 TIMES A DAY NEEDED FOR MUSCLE SPASMS Start Date: 08/25/19 Status: OrderedtraZODone 150 mg oral tablet TAKE 1 TO 2 TABLETS BY MOUTH EVERY DAY AT BEDTIME Start Date: 08/25/19 Status: OrderedtraZODone 300 mg oral tablet By Mouth, Daily at bedtime, 0 Refills, Maintenance, 10/04/18 11:38:13 EDT, Tablet Start Date: 10/04/18 Status: OrderedTrulance 3 mg oral tablet 0 Refills, Maintenance, 08/25/19 4:35:00 EDT Start Date: 08/25/19 Status: OrderedVentolin HFA 108 mcg/inh inhalation aerosol with adapter 2 puffs, Inhalation, 4 times a day, PRN for wheezing, # 8 Gm, 0 Refills, Maintenance, 10/10/19 22:21:00 EDT, [facility]erosol, [id number], 142, cm, 10/10/19 21:00:00 EDT, Height, 91, kg, 10/10/19 21:00:00 EDT, Dry Weight Start Date: 10/10/19 Status: Ordered Problem List Condition Effective Dates Status Health Status Informant Gait abnormality(Confirmed) Active Anemia(Confirmed) Active Asthma(Confirmed) Active Pseudotumor cerebri(Confirmed) Active Binge eating disorder, severe, in Active partial remission(Confirmed) Celiac disease(Confirmed) Active Chronic back pain(Confirmed) Active Constipation(Confirmed) Active Fibromyalgia(Confirmed) Active GERD (gastroesophageal reflux Active disease)(Confirmed) History of back injury(Confirmed) Active History of self mutilation(Confirmed) Active Headache(Confirmed) Active HTN (hypertension)(Confirmed) Active Hypothyroidism(Confirmed) Active Claudication(Confirmed) Active Lymphocytic colitis(Confirmed) Active Anemia, macrocytic(Confirmed) Active Major depression(Confirmed) Active Migraines(Confirmed) Active Anxiety and depression(Confirmed) Active Mood disorder(Confirmed) Active Nausea(Confirmed) Active TRISTAN on CPAP(Confirmed) Active Bilateral leg pain(Confirmed) Active Paresthesias(Confirmed) Active PTSD (post-traumatic stress Active disorder)(Confirmed) Leg swelling(Confirmed) Active Ulcerative colitis(Confirmed) Active Social History Social History Type Response Smoking Status Never smoker; Tobacco user i n household: No entered on: 10/25/14 Sex
--- OUTSIDE RECORDS SUMMARY | 2021-12-30 21:47 | XMS_ITS | Continuity of Care Document ---
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 Discharge Disposition: A-D/C Home Attending Physician: Fidel Gifford MD Admitting Physician: Fidel Gifford MD Referring Physician: Not on Staff, Referring [...] Not Given Patient Refuses 1Result Comment: [05/03/2018] [id number] Comment: [05/03/2018] [id number] Note: pt stated she did not want [...] 05/29/21 18:11:00 EST, Route to Pharmacy Electronically, [facility]/pharmacy #[id number], Partial fill upon patient request if [...] Refills, Maintenance, 11/21/19 12:43:00 EDT, [id number], 142, cm, 11/16/19 8:05:00 EDT, Height, 90.7, kg, 10/11/19 1:24:00 EDT, Dry Weight Start Date: 11/21/19 Status: OrderedDupixent 300 mg/2 mL subcutaneous solution Every 14 days, 0 Refills, Maintenance, 11/17/19 4:27:00 EDT Start Date: 11/17/19 Status: Orderedfluticasone 50 mcg/inh nasal spray 1 sprays, Nares, Both, 2 times a day, 0 Refills, Maintenance, 11/17/19 4:21:00 EDT, [place] Start Date: 11/17/19 Status: OrderedLatuda 40 mg oral tablet 1 tablet = 40 mg, By Mouth, Daily, # 30 tablet, 0 Refills, Maintenance, 11/17/19 4:22:00 EDT, Tablet Start Date: 11/17/19 Status: Orderedlevothyroxine 0.137 mg oral tablet 1 tablet, By Mouth, Daily, # 90 tablet, 0 Refills, Maintenance, 01/30/20 14:58:00 EST, [facility], 143, cm, 01/14/20 22:55:00 EDT, Height, 101, kg, 01/14/20 22:55:00 EDT, Dry Weight Start Date: 01/30/20 Status: Orderedmagnesium oxide 400 mg oral tablet 1 tablet, By Mouth, Daily, # 90 tablet, 3 Refills, [facility], 143, cm, 04/02/21 3:19:00 EST, Height, 96.2, [...] 0 Refills, Maintenance, 04/01/21 23:03:00EST, CR Capsule, [facility]/pharmacy #[id number], Partial fill upon patient request if [...] Start Date: 05/15/21 Stop Date: 11/11/21 Status: OrderedZofran 4 mg oral tablet 1 [...] Active Leg swelling(Confirmed) Active Ulcerative colitis(Confirmed) Active Vital Signs Most recent to oldest 1 2 3 [Reference Range]: Oxygen Saturation [94-100 %] 99 % 97 % 99 % (07/07/21 11:36 PM) (07/07/21 8:58 PM) (07/07/21 7: 42 PM) Pulse Rate [55-90 bpm] 84 bpm 85 bpm 86 bpm (07/07/21 11:36 PM) (07/07/21 8:58 PM) (07/07/21 7: 42 PM) Blood Pressure [90-138/55-84 124/78 mm Hg 113/75 mm Hg 125 /94 mm Hg mm Hg] (07/07/21 11:36 PM) (07/07/21 8:58 PM) (07/07/21 7: 42 PM) Respiratory Rate [16-30 19 br/min 18 br/min 20 br/mi n br/min] (07/07/21 11:36 PM) (07/07/21 8:58 PM) (07/07/21 7: 42 PM) Temperature [96.8-100.4 DegF] 98.7 DegF (07/07/21 6:33 PM) Mode of Delivery (Oxygen) Room air Room air Room a ir (07/07/21 11:36 PM) (07/07/21 8:58 PM) (07/07/21 7: 42 PM) Temperature Route Rectal (07/07/21 6:33 PM) Social History Social History Type Response Smoking Status Never (less than 100 in life time) entered on: 01/01/20 Sex
--- OUTSIDE RECORDS SUMMARY | 2021-12-30 21:47 | XMS_ITS | Continuity of Care Document ---
:1970 Author Organization [facility] Address [address] [place] [id number]- Care Team Providers Name Role Phone Long Rama MORALES Primary Care Physician En[place] [facility] [place](s): 12/07/20 - 12/07/[address] [address]- Discharge Disposition: A-D/C Home Attending Physician: Osmar [...] Not Given Patient Refuses 1Result Comment: [05/03/2018] [id number] Comment: [05/03/2018] [id number] Note: pt stated she did not want to receive vaccine today, may want later Medications albuterol-ipratropium 3 mg-0.5 mg/3 ml inhalation solution 3 mL, Inhalation, 4 times a day, # 360 mL, 1 Refills, Maintenance, 12/13/19 8:19:00 EDT, Inhalation Solution, [facility], 3 mL Inhalation 4 times a day, 141, cm, 12/07/19 12:18:00 EDT, Height, 100.5, kg, 12/05/19 3:32:00 EDT, Dry Weight Start Date: 12/13/19 Status: OrderedApriso 0.375 g oral capsule, extended release 4 capsule = 1.5 Gm, By Mouth, Daily in AM, # 120 capsule, 4 Refills, Maintenance, 12/04/20 10:31:00 EDT, CR Capsule, [facility]/pharmacy #[id number], Partial fill upon [...] capsule, 3 Refills, Maintenance, 09/28/20 7:41:00 EDT, [facility]/pharmacy #[id number], 143, cm, 09/20/20 19:45:00 EDT, Height, 106.6, kg, 09/20/20 19:45:00 EDT, Dry Weight Start Date: 09/28/20 Stop Date: 01/26/21 Status: Ordereddoxycycline monohydrate 100 mg oral capsule 1 capsule = 100 mg, By Mouth, 2 times a day, for 7 days, # 14 capsule, 0 Refills, Acute 12/12/20 0:11:00 EDT, 12/05/20 0:11:00 EDT, [facility]apsule, [id number], Partial fill upon patient request if theprescription is for a schedule II opioid drug., 1... Start Date: 12/05/20 Stop Date: 12/12/20 Status: Orderedduloxetine 60 mg oral enteric coated capsule 1 capsule, By Mouth, Daily, # 30 capsule, 0 Refills, Maintenance, 11/21/19 12:43:00 EDT, [id number], 142, cm, 11/16/19 8:05:00 EDT, Height, 90.7, kg, 10/11/19 1:24:00 EDT, Dry Weight Start Date: 11/21/19 Status: OrderedDupixent 300 mg/2 mL subcutaneous solution Every 14 days, 0 Refills, Maintenance, 11/17/19 4:27:00 EDT Start Date: 11/17/19 Status: Orderedfluticasone 50 mcg/inh nasal spray 1 sprays, Nares, Both, 2 times a day, 0 Refills, Maintenance, 11/17/19 4:21:00 EDT, [place] Start Date: 11/17/19 Status: Orderedlamotrigine 25 mg [...] tablet, 0 Refills, Maintenance, 01/30/20 14:58:00 EST, [facility] STORE [id number], 143, cm, 01/14/20 22:55:00 EDT, Height, 101, kg, 01/14/20 22:55:00 EDT, Dry Weight Start Date: 01/30/20 Status: Orderedlidocaine 4% topical film 1 patch, Topically, Daily, # 30 patch, 0 Refills, Maintenance, 01/06/20 10:41:00 EDT, Film, [facility] 3, 142, cm, 01/06/20 8:20:00 EDT, Height, 103, kg, 01/04/20 18:55:00 EDT, Dry Weight Start Date: 01/06/20 Stop Date: 02/05/20 Status: Orderedlidocaine 5% topical film 1 patch, Topically, Daily, PRN Pain , Mild, remove after 12 hours, # 13 each, 0 Refills, Maintenance, 11/04/20 23:32:00 EDT, Film, [facility]/pharmacy #[id number], Partial fill upon patient request if the prescription is for a schedule II opioid drug., 1 patch Top... Start Date: 11/04/20 Status: Orderedmagnesium oxide 400 mg (240 mg elemental magnesium) oral tablet 1 tablet, By Mouth, Daily, # 90 tablet, 3 Refills, Acute, 04/10/20 10:44:00 EST, [facility], 90, TAKE 1 TABLET BY MOUTH EVERY DAY, 143, cm, 03/27/20 7:23:00 EST, Height, 101, kg, 01/14/20 22:55:00EDT, Dry Weight Start Date: 04/10/20 Status: Orderedmeclizine 25 mg oral tablet 1 tablet = 25 mg, By Mouth, 3 times a day, PRN for dizziness, for 7 days, # 21 tablet, 0 Refills, Acute 12/12/20 0:12:00 EDT, 12/05/20 0:12:00 EDT, Tablet, [facility]/pharmacy #[id number], Partial fill upon patientrequest if the prescription is for a schedule II... Start Date: 12/05/20 Stop Date: 12/12/20 Status: Orderedmontelukast 10 mg oral tablet 10 mg, 1, tablet, By Mouth, Daily in PM, # 30 tablet, Refills 0, Maintenance, 11/17/19 4:22:00 EDT Start Date: 11/17/19 Status: Orderedondansetron 4 mg oral tablet 1 tablet = 4 mg, By Mouth, Every 8 hours, PRN Nausea & Vomiting, # 10 tablet, 0 Refills, Maintenance, 12/19/19 13:39:00 EDT, Tablet, [facility]/pharmacy #[id number], 142, cm, 12/15/19 [...] 3 [Reference Range]: Oxygen Saturation [94-100 %] 98 % 98 % 96 % (12/07/20 9:05 PM) (12/07/20 7:12 PM) (12/07/20 5:2 9 PM) Pulse Rate [55-90 bpm] 76 bpm 72 bpm 68 bpm (12/07/20 9:05 PM) (12/07/20 7:12 PM) (12/07/20 5:2 9 PM) Blood Pressure [90-138/55-84 mm 113/61 mm Hg 108/74 mm Hg 102/68 mm Hg Hg] (12/07/20 9:05 PM) (12/07/20 7:12 PM) (12/07/20 5:2 9 PM) Respiratory Rate [16-30 br/min] 18 br/min 18 br/min 18 br/min (12/07/20 9:05 PM) (12/07/20 7:12 PM) (12/07/20 5:2 9 PM) Temperature [96.8-100.4 DegF] 98.1 DegF 98 DegF 97 .7 DegF (12/07/20 9:05 PM) (12/07/20 7:12 PM) (12/07/20 3:1 4 PM) Mode of Delivery (Oxygen) Room air Room air Room a ir (12/07/20 9:05 PM) (12/07/20 7:12 PM) (12/07/20 5:2 9 PM) Blood pressure sites Arm, right Arm, right Arm, right (12/07/20 9:05 PM) (12/07/20 7:12 PM) (12/07/20 3:1 4 PM) Temperature Route Oral Oral Oral (12/07/20 9:05 PM) (12/07/20 7:12 PM) (12/07/20 3:1 4 PM) Social History Social History Type Response Smoking Status Never (less than 100 in life time) entered on: 01/01/20 Sex
--- OUTSIDE RECORDS SUMMARY | 2021-12-30 21:47 | XMS_ITS | Continuity of Care Document ---
:1970 Author Organization [facility] Address [address] [place] [address]- Care Team Providers Name Role Phone Go Schwarz MD Primary Care Physician Encounter [facility] Date(s): 11/30/19 - 12/30/[address] [address]- [facility] Allergies, Adverse Reactions, Alerts Substance Reaction Severity [...] Not Given Patient Refuses 1Result Comment: [05/03/2018] [id number] Comment: [05/03/2018] [id number] Note: pt stated she did not want to receive vaccine today, may want later Medications acetaminophen 500 mg oral tablet 1 tablet = 500 mg, By Mouth, Every 4 hours, PRN as needed for fever, # 50 tablet, 0 Refills, Maintenance, 11/17/19 4:23:00 EDT, Tablet Start Date: 11/17/19 Status: Orderedalbuterol-ipratropium 3 mg-0.5 mg/3 ml inhalation solution 3 mL, Inhalation, 4 times a day, # 360 mL, 1 Refills, Maintenance, 12/13/19 8:19:00 EDT, Inhalation Solution, [facility], 3 mL Inhalation [...] tablet, 1 Refills, Maintenance, 12/23/19 16:02:00 EDT, [facility]/pharmacy #[id number], 142, cm, 12/15/19 7:46:00 EDT, [...] 9:37:00 EDT, Tablet Start Date: 11/17/19 Status: OrderedclonazePAM 1 mg oral tablet TAKE 1 TABLET BY MOUTH 3 TIMES A DAY NEEDED. MAY TAKE A FOURTH DOSE IF NEEDED. Start Date: 11/17/19 Status: OrderedD 1000 IU oral tablet 1 tablet = 1,000 International_Units, By Mouth, Daily, # 30 tablet, 0 Refills, Maintenance, 204:24:00 EDT, Tablet Start Date: 11/17/19 Status: OrderedDaily-Madi with Iron oral tablet 1 tablet, By Mouth, Daily, # 90 tablet, 1 Refills, Maintenance, 12/02/19 14:20:00 EDT, [facility]/pharmacy #[id number], 1 tablet By Mouth Daily, 142, cm, 11/23/19 23:52:00 EDT, Height, 90.7, kg, 10/11/19 1:24:00 EDT, Dry Weight Start Date: 12/02/19 Status: Ordereddicyclomine 10 mg oral capsule 1 capsule = 10 mg, By Mouth, 3 times a day, PRN as needed for abdominal cramps, # 30 capsule, 0 Refills, Maintenance, 12/19/19 13:37:00 EDT, [facility]/pharmacy #[id number], 142, cm, 12/15/19 7:46:00 EDT, Height, 91, kg, 12/13/19 15:07:00 EDT, Dry Weight Start Date: 12/19/19 Status: Orderedduloxetine 60 mg oral enteric coated capsule 1 capsule, By Mouth, Daily, # 30 capsule, 0 Refills, Maintenance, 11/21/19 12:43:00 EDT, [facility] STORE [id number], 142, cm, 11/16/19 8:05:00 EDT, Height, 90.7, kg, 10/11/19 1:24:00 EDT, Dry Weight Start Date: 11/21/19 Status: OrderedDupixent 300 mg/2 mL subcutaneous solution 0 Refills, Maintenance, 11/17/19 4:27:00 EDT Start Date: 11/17/19 Status: Orderedfluticasone 50 mcg/inh nasal spray 1 sprays, Nares, Both, 2 times a day, 0 Refills, Maintenance, 11/17/19 4:21:00 EDT, [place] Start Date: 11/17/19 Status: Orderedlamotrigine 25 mg [...] # 30 tablet, 0 Refills, Maintenance, 11/17/19 4:26:00 EDT, Tablet Start Date: 11/17/19 Status: Orderedmagnesium oxide 400 mg (240 mg elemental magnesium) oral tablet 1 tablet = 400 mg, By Mouth, Daily, # 100 tablet, 0 Refills, Maintenance, 11/17/19 4:28:00 EDT, Tablet Start Date: 11/17/19 Status: Orderedmeloxicam 7.5 mg oral tablet 1 tablet, By Mouth, Daily, # 30 tablet, 0 Refills, Maintenance, 11/23/19 18:18:00 EDT, [id number], 142, cm, 11/16/19 8:05:00 EDT, Height, 90.7, kg, 10/11/19 1:24:00 EDT, Dry Weight Start Date: 11/23/19 Status: Orderedmontelukast 10 mg oral tablet 10 mg, 1, tablet, By Mouth, Daily in PM, # 30 tablet, Refills 0, Maintenance, 11/17/19 4:22:00 EDT Start Date: 11/17/19 Status: Orderednystatin 241177 u/ml oral suspension 1 mL = 100,000 units, By Mouth, 4 times a day, # 30 mL, 0 Refills, Maintenance, 11/17/19 4:28:00 EDT, Suspension Start Date: 11/17/19 Status: Orderedondansetron 4 mg oral tablet 1 tablet = 4 mg, By Mouth, Every 8 hours, PRN Nausea & Vomiting, # 10 tablet, 0 Refills, Maintenance, 12/19/19 13:39:00 EDT, Tablet, [facility]/pharmacy #[id number], 142, cm, 12/15/19 7:46:00 EDT, Height, 91, kg, 12/13/19 15:07:00 EDT, Dry Weight Start Date: 12/19/19 Status: Orderedpantoprazole 20 mg oral delayed release tablet 0 Refills, Maintenance, 11/17/19 4:28:00 EDT Start Date: 11/17/19 Status: Orderedprazosin 5 mg oral capsule 5 mg, 1, capsule, By Mouth, 3 times a day, # 90 capsule, Refills 0, Maintenance, 11/17/19 4:22:00 EDT Start Date: 11/17/19 Status: Orderedpregabalin 75 mg oral capsule 1 capsule = 75 mg, By Mouth, 2 times a day, # 60 capsule, 0 Refills, Maintenance, 11/17/19 4:26:00 EDT, Capsule Start Date: 11/17/19 Status: OrderedQUEtiapine 200 mg oral tablet 200 mg, 1, tablet, By Mouth, 2 times a day, # 180 tablet, Refills 0, Maintenance, 11/17/19 4:26:00 EDT Start Date: 11/17/19 Status: OrderedSpiriva = 18 mcg, Inhalation, Daily, 0 Refills, Maintenance, 11/18/19 14:38:00 EDT Start Date: 11/18/19 Status: Orderedtorsemide 20 mg oral tablet 2 tablet = 40 mg, By Mouth, Daily, # 60 tablet, 0 Refills, Maintenance, 12/15/19 13:10:00 EDT, Tablet, [facility], 142, cm, 12/15/19 7:46:00 EDT, Height, 91, kg, 12/13/19 15:07:00 EDT, Dry Weight Start Date: 12/15/19 Stop Date: 01/14/20 Status: OrderedtraZODone 150 mg oral tablet 1 tablet = 150 mg, By Mouth, Daily at bedtime, # 30 tablet, 0 Refills, Maintenance, 11/17/19 4:23:00EDT, Tablet Start Date: 11/17/19 Status: OrderedTrulance 3 mg oral tablet 0 Refills, Maintenance, 11/17/19 4:22:00 EDT Start Date: 11/17/19 Status: Ordered Problem List Condition Effective Dates [...]
--- OUTSIDE RECORDS SUMMARY | 2021-12-30 21:47 | XMS_ITS | Continuity of Care Document ---
:1970 Author Organization [facility] Address [address] [place] [address]- Care Team Providers Name Role Phone Edie Bee MD Primary Care Physician [phone] Encounter [facility] Date(s): 08/11/21 - 08/12/[address] [address]- Discharge Disposition: A-D/C Home Attending Physician: Benjamin Farrar MD Admitting Physician: Benjamin Farrar MD Referring Physician: Not on Staff, Referring MD Allergies, Adverse Reactions, Alerts Substance Reaction Severity Status sulfADIAZINE Rash Active penicillins Rash Active Toradol1, 2 Active droperidol Anaphylactic reaction Persistent Severe Active Keflex Rash Active Glutens rash Active 1abd upset with [id number] upset Immunizations Given and Recorded Vaccine Date [...] Not Given Patient Refuses 1Result Comment: [05/03/2018] [id number] Comment: [05/03/2018] [id number] Note: pt stated she did not want [...] capsule, 3 Refills, Maintenance, 09/28/20 7:41:00 EDT, [facility]/pharmacy #[id number], 143, cm, 09/20/20 19:45:00 EDT, Height, 106.6, kg, 09/20/20 19:45:00 EDT, Dry Weight Start Date: 09/28/20 Stop Date: 01/26/21 Status: Orderedduloxetine 60 mg oral enteric coated capsule 1 capsule, By Mouth, Daily, # 30 capsule, 0 Refills, Maintenance, 11/21/19 12:43:00 EDT, [facility] STORE 616[facility], 142, cm, 11/16/19 8:05:00 EDT, Height, 90.7, kg, 10/11/19 1:24:00 EDT, Dry Weight Start Date: 11/21/19 Status: OrderedDupixent 300 mg/2 mL subcutaneous solution Every 14 days, 0 Refills, Maintenance, 11/17/19 4:27:00 EDT Start Date: 11/17/19 Status: Orderedfluticasone 50 mcg/inh nasal spray 1 sprays, Nares, Both, 2 times a day, 0 Refills, Maintenance, 11/17/19 4:21:00 EDT, [place] Start Date: 11/17/19 Status: OrderedImodium A-D 2 mg oral tablet 2 mg, 1, tablet, By Mouth, Every 4 hours, PRN, # 10 tablet, Refills 0, Tot. Refills 0, Maintenance, for loose stool, 07/27/21 19:52:00 EDT, Route to Pharmacy Electronically, [facility]/pharmacy #[id number], Partialfill upon patient request if the prescription is... Start Date: 07/27/21 Status: OrderedLatuda 40 mg oral tablet 1 tablet = 40 mg, By Mouth, Daily, # 30 tablet, 0 Refills, Maintenance, 11/17/19 4:22:00 EDT, Tablet Start Date: 11/17/19 Status: Orderedlevothyroxine 0.137 mg oral tablet 1 tablet, By Mouth, Daily, # 90 tablet, 0 Refills, Maintenance, 01/30/20 14:58:00 EST, [facility], 143, cm, 01/14/20 22:55:00 EDT, Height, 101, kg, 01/14/20 22:55:00 EDT, Dry Weight Start Date: 01/30/20 Status: Orderedmagnesium oxide 400 mg oral tablet 1 tablet, By Mouth, Daily, # 90 tablet, 3 Refills, [facility], 143, cm, 04/02/21 3:19:00 EST, Height, 96.2, [...] 0 Refills, Maintenance, 04/01/21 23:03:00EST, CR Capsule, [facility]/pharmacy #[id number], Partial fill upon patient [...] II opioid drug. Start Date: 04/11/21 Status: OrderedtraZODone 150 mg oral tablet 1 [...] to oldest 1 2 3 [Reference Range]: Height 142 cm 142 cm 142 cm (08/12/21 8:41 AM) (08/11/21 5:00 PM) (08/11/21 3:5 9 PM) Weight 92 kg 92 kg 92 kg (08/12/21 8:41 AM) (08/11/21 5:00 PM) (08/11/21 3:5 9 PM) Oxygen Saturation [94-100 97 % 100 % 99 % %] (08/12/21 11:00 AM) (08/12/21 8:41 AM) (08/12/21 7: 46 AM) Pulse Rate [55-90 bpm] 93 bpm 80 bpm 78 bpm *H* (08/12/21 8:41 AM) (08/12/21 7:46 AM) (08/12/21 11:00 AM) Body Mass Index 45.63 45.63 [18.5-24.99] *>HHI* *>HHI* (08/12/21 8:41 AM) (08/11/21 3:59 PM) Blood Pressure 128/80 mm Hg 112/74 mm Hg 112/85 mm Hg [90-138/55-84 mm Hg] (08/12/21 11:00 AM) (08/12/21 8:41 AM) ( 7:46 AM) Respiratory Rate [16-30 16 br/min 16 br/min 18 br/mi n br/min] (08/12/21 11:00 AM) (08/12/21 8:41 AM) (08/12/21 7: 46 AM) Temperature [96.8-100.4 98.7 DegF 97.6 DegF 97.8 Deg F DegF] (08/12/21 8:41 AM) (08/12/21 7:46 AM) (08/12/21 5:4 4 AM) Mode of Delivery (Oxygen) Room air Room air Room a ir (08/12/21 11:00 AM) (08/12/21 8:41 AM) (08/12/21 5: 44 AM) Blood pressure sites Arm, left Arm, left Arm, right (08/12/21 11:00 AM) (08/12/21 8:41 AM) (08/12/21 7: 46 AM) Temperature Route Oral Axillary Temporal (08/12/21 8:41 AM) (08/12/21 7:46 AM) (08/12/21 5:4 4 AM) Dry Weight 92 kg 92 kg 92 kg (08/12/21 8:41 AM) (08/11/21 5:00 PM) (08/11/21 3:5 9 PM) Weight Obtained Via Patient/family stated (08/11/21 3:59 PM) Dry Weight Obtained Via Patient/family stated (08/11/21 3:59 PM) Social History Social History Type Response Smoking Status Never (less than 100 in life time) entered on: 01/01/20 Sex
--- OUTSIDE RECORDS SUMMARY | 2021-12-30 21:47 | XMS_ITS | Continuity of Care Document ---
:1970 Author Organization [facility] Address [address] [place] [address], [address] Floor, [address] [place] [address]- Care Team Providers Name Role Phone Fidel Sheffield MD, Mohan Primary Care Physician [facility] Date(s): 05/13/19 - 05/23/19 [facility] [address] [facility], [address] [facility], [address] [place] [address]- [facility] Attending Physician: Vinny Cornejo Admitting Physician: AdmVinny del valle Referring Physician: AdmVinny del valle Allergies, Adverse Reactions, Alerts Substance Reaction Severity [...] Not Given Patient Refuses 1Result Comment: [05/03/2018] [id number] Comment: [05/03/2018] [id number] Note: pt stated she did not want to receive vaccine today, may want later Medications Apriso 0.375 g oral capsule, extended release 4 capsule = 1.5 Gm, By Mouth, Daily in AM, # 120 capsule, 0 Refills, Maintenance, 12/15/18 20:46:53 EDT, [facility] C[facility] Start Date: 12/15/18 Status: OrderedApriso 0.375 g oral capsule, extended release 4 capsule = 1.5 Gm, By Mouth, Daily in AM, # 56 capsule, 3 Refills, Maintenance, 04/19/19 13:22:00 EST, CR Capsule, [facility]/pharmacy #[id number], 142, cm, 04/15/19 9:03:00 EST, Height, 92.6, kg, 03/30/19 10:30:00 EST, Dry Weight Start Date: 04/19/19 Stop Date: 06/14/19 Status: OrderedbuPROPion 200 mg/12 hours (SR) oral [...] By Mouth, 4 times a day, # 120 capsule, 3 Refills, Maintenance, 04/19/19 13:22:00EST, Capsule, [facility]/pharmacy #[id number], 142, cm, 04/15/19 9:03:00 EST, Height, 92.6, kg, 03/30/19 10:30:00EST, Dry Weight Start Date: 04/19/19 Status: Ordereddivalproex sodium 500 mg oral enteric coated tablet = 500 mg, By Mouth, 2 times a day, 0 Refills, Maintenance, 12/27/18 11:17:00 EDT, Tablet Start Date: 12/27/18 Status: OrderedDulcolax 5 mg oral enteric coated tablet 2 tablet = 10 mg, By Mouth, Daily, PRN for constipation, # 50 tablet, 0 Refills, Acute 07/07/19 11:00:00 EDT, 04/01/19 13:49:00 EST, EC Tablet, [facility]/pharmacy #[id number], 142, cm, 04/01/19 11:22:00 EST, Height, 92.6, kg, 03/30/19 10:30:00 EST, Dry Weight Start Date: 04/01/19 Stop Date: 07/07/19 Status: Orderedduloxetine 60 mg oral enteric coated capsule = 120 mg, By Mouth, Daily, 0 Refills, Maintenance, 10/04/18 11:34:58 EDT, Capsule Start Date: 10/04/18 Status: Orderedmagnesium citrate 8.85% oral liquid 150 mL = 8.725 Gm, By Mouth, Once, # 300 mL, 0 Refills, Soft Stop, 04/28/19 17:14:00 EST, Liquid, [facility]/pharmacy #[id number], 150 mL By Mouth Once, 142, cm, 04/28/19 9:05:00 EST, Height, 92.6, kg, 03/30/19 10:30:00 EST, Dry Weight Start Date: 04/28/19 Status: OrderedMiraLax oral powder for reconstitution = 17 Gm, By Mouth, Daily, dissolve in water before taking, # 255 Gm, 1 Refills, Acute 06/23/19 11:00:00 EDT, 04/01/19 13:47:00 EST, REC Powder, [facility]/pharmacy #[id number], 17 Gm By Mouth Daily,Instr:dissolve [...] 06/09/19 11:00:00 EDT, 04/01/19 13:48:00 EST, Tablet, [facility]/pharmacy #[id number], 2 tablet By Mouth Daily at [...] 11:38:13 EDT, Tablet Start Date: 10/04/18 Status: OrderedZofran ODT 4 mg oral tablet, disintegrating 1 tablet = 4 mg, By Mouth, Every 8 hours, PRN as needed for nausea/vomiting, allow tablet to dissolve on tongue, # 10 tablet, 0 Refills, Maintenance, 05/18/19 20:08:00 EST, DIS Tablet, [facility]/pharmacy #0315, 142.24, cm, 05/12/19 15:50:00 EST, Height, 90.... Start Date: 05/18/19 Status: Ordered Problem List Condition Effective Dates [...]
--- OUTSIDE RECORDS SUMMARY | 2021-12-30 21:47 | XMS_ITS | Continuity of Care Document ---
:1970 Author Organization [facility] Address [address] [address]- Care Team Providers Name Role Phone Pbjonas Nasima FAITH Primary Care Physician Encounter [facility] Date(s): 12/01/19 - 03/30/20 [facility] [address] [address] Attending Physician: Renny Sykes MD Admitting Physician: Renny Sykes MD Allergies, Adverse Reactions, Alerts Substance Reaction [...] Not Given Patient Refuses 1Result Comment: [05/03/2018] [id number] Comment: [05/03/2018] [id number] Note: pt stated she did not want to receive vaccine today, may want later Medications albuterol-ipratropium 3 mg-0.5 mg/3 ml inhalation solution 3 mL, Inhalation, 4 times a day, # 360 mL, 1 Refills, Maintenance, 12/13/19 8:19:00 EDT, Inhalation Solution, [facility], 3 mL Inhalation 4 [...] 01/06/20 10:18:00 EDT, Route to Pharmacy Electronically, [facility], 142, cm, 01/06/20 8:20:00EDT, Height, 103, kg, 01/04/20 18:55:00 EDT, Dry... Start Date: 01/06/20 Status: Orderedcetirizine 10 mg oral tablet 1 tablet, By Mouth, Daily, # 90 tablet, 1 Refills, Maintenance, 12/23/19 16:02:00 EDT, [facility]/pharmacy #[id number], 142, cm, 12/15/19 7:46:00 EDT, Height, [...] tablet, 1 Refills, Maintenance, 12/02/19 14:20:00 EDT, [facility]/pharmacy #[id number], 1 tablet By Mouth Daily, 142, [...] capsule, 0 Refills, Maintenance, 11/21/19 12:43:00 EDT, [facility] STORE 34221, 142, cm, 11/16/19 8:05:00 EDT, Height, 90.7, kg, 10/11/19 1:24:00 EDT, Dry Weight Start Date: 11/21/19 Status: OrderedDupixent 300 mg/2 mL subcutaneous solution 0 Refills, Maintenance, 11/17/19 4:27:00 EDT Start Date: 11/17/19 Status: Orderedfluticasone 50 mcg/inh nasal spray 1 sprays, Nares, Both, 2 times a day, 0 Refills, Maintenance, 11/17/19 4:21:00 EDT, [place] Start Date: 11/17/19 Status: Orderedlamotrigine 25 mg [...] Refills, Maintenance, 01/30/20 14:58:00 EST, [facility], 143, cm, 01/14/20 22:55:00 EDT, Height, 101, kg, 01/14/20 22:55:00 EDT, Dry Weight Start Date: 01/30/20 Status: Orderedlidocaine 4% topical film 1 patch, Topically, Daily, # 30 patch, 0 Refills, Maintenance, 01/06/20 10:41:00 EDT, Film, [facility], 142, cm, 01/06/20 8:20:00 EDT, Height, [...] Refills, Maintenance, 11/23/19 18:18:00 EDT, [facility], 142, cm, 11/16/19 8:05:00 EDT, Height, 90.7, kg, 10/11/19 1:24:00 EDT, Dry Weight Start Date: 11/23/19 Status: Orderedmontelukast 10 mg oral tablet 10 mg, 1, tablet, By Mouth, Daily in PM, # 30 tablet, Refills 0, Maintenance, 11/17/19 4:22:00 EDT Start Date: 11/17/19 Status: Orderednystatin 932386 u/ml oral suspension 1 mL = 100,000 units, By Mouth, 4 times a day, # 30 mL, 0 Refills, Maintenance, 11/17/19 4:28:00 EDT, Suspension Start Date: 11/17/19 Status: Orderedondansetron 4 mg oral tablet 1 tablet = 4 mg, By Mouth, Every 8 hours, PRN Nausea & Vomiting, # 10 tablet, 0 Refills, Maintenance, 12/19/19 13:39:00 EDT, Tablet, [facility]/pharmacy #0859, 142, cm, 12/15/19 7:46:00 EDT, Height, [...] 3 Refills, Maintenance, 01/10/20 7:53:00 EDT, Capsule, [facility]/pharmacy #[id number], 142, cm, 01/08/20 22:31:00 EDT, Height, [...]
--- OUTSIDE RECORDS SUMMARY | 2021-12-30 21:47 | XMS_ITS | Continuity of Care Document ---
:1970 Author Organization [facility] Address [address] [place] [address]- Care Team Providers Name Role Phone Edie Bee MD Primary Care Physician Encounter [facility] [id number] Date(s): 05/20/21 - 06/19/21 [facility] [place] [address] [place], [place] [address] Allergies, Adverse Reactions, Alerts Substance Reaction Severity Status sulfADIAZINE Rash Active penicillins Rash Active droperidol Anaphylactic reaction Persistent Severe Active Toradol Active Keflex Rash Active Glutens rash Active Immunizations Given and Recorded Vaccine Date Status Refusal Reason tetanus/diphtheria/pertussis, acel(Tdap) 08/16/20 Given tetanus/diphtheria/pertussis, acel(Tdap)1 02/19/13 Record ed influenza virus vaccine, inactivated 03/31/19 Given influenza virus vaccine, inactivated 12/04/17 Recorded pneumococcal 23-valent vaccine2 08/28/15 Recorded Not Given Vaccine Date Status Refusal Reason pneumococcal 23-valent vaccine3 01/04/18 Not Given Patient Refuses 1Result Comment: [05/03/2018] [id number] Comment: [05/03/2018] [id number] Note: pt stated she did not want to receive vaccine today, may want later Medications Apriso 0.375 g oral capsule, extended release 4 capsule = 1.5 Gm, By Mouth, Daily in AM, # 120 capsule, 4 Refills, Maintenance, 04/01/21 11:02:00 EST, CR Capsule, [id number], Partial fill upon patient request if the [...] tablet, 1 Refills, Maintenance, 12/23/19 16:02:00 EDT, [facility]/pharmacy #[id number], 142, cm, 12/15/19 7:46:00 EDT, [...] 05/29/21 18:11:00 EST, Route to Pharmacy Electronically, [facility]/pharmacy #[id number], Partial fill upon patient request if the prescriptio... Start Date: 05/29/21 Status: OrderedDaily-Madi with Iron oral tablet 1 tablet, By Mouth, Daily, # 90 tablet, 1 Refills, Maintenance, 12/02/19 14:20:00 EDT, [facility]/pharmacy #0859, 1 tablet By Mouth Daily, [...] capsule, 3 Refills, Maintenance, 09/28/20 7:41:00 EDT, [facility]/pharmacy #0859, 143, cm, 09/20/20 19:45:00 EDT, Height, 106.6, kg, 09/20/20 19:45:00 EDT, Dry Weight Start Date: 09/28/20 Stop Date: 01/26/21 Status: Orderedduloxetine 60 mg oral enteric coated capsule 1 capsule, By Mouth, Daily, # 30 capsule, 0 Refills, Maintenance, 11/21/19 12:43:00 EDT, [facility], 142, cm, 11/16/19 8:05:00 EDT, Height, 90.7, kg, 10/11/19 1:24:00 EDT, Dry Weight Start Date: 11/21/19 Status: OrderedDupixent 300 mg/2 mL subcutaneous solution Every 14 days, 0 Refills, Maintenance, 11/17/19 4:27:00 EDT Start Date: 11/17/19 Status: Orderedfluticasone 50 mcg/inh nasal spray 1 sprays, Nares, Both, 2 times a day, 0 Refills, Maintenance, 11/17/19 4:21:00 EDT, [place] Start Date: 11/17/19 Status: OrderedLatuda 40 mg oral tablet 1 tablet = 40 mg, By Mouth, Daily, # 30 tablet, 0 Refills, Maintenance, 11/17/19 4:22:00 EDT, Tablet Start Date: 11/17/19 Status: Orderedlevothyroxine 0.137 mg oral tablet 1 tablet, By Mouth, Daily, # 90 tablet, 0 Refills, Maintenance, 01/30/20 14:58:00 EST, [facility], 143, cm, 01/14/20 22:55:00 EDT, Height, 101, kg, 01/14/20 22:55:00 EDT, Dry Weight Start Date: 01/30/20 Status: Orderedmagnesium oxide 400 mg oral tablet 1 tablet, By Mouth, Daily, # 90 tablet, 3 Refills, [facility] STORE 39510, 143, cm, 04/02/21 3:19:00 EST, Height, 96.2, [...] 0 Refills, Maintenance, 04/01/21 23:03:00EST, CR Capsule, [id number], Partial fill upon [...] OrderedpredniSONE 5 mg oral tablet See Instructions, 6/6-5/5-4/4-3/3-2/2-1/1 tablets 2 days each, # 42 tablet, [...] 5 Refills, Maintenance, 05/15/21 14:16:00 EST, Powder, [facility]/pharmacy #[id number], Partial fill upon patient request if the prescription is fora schedule II opioid drug., 143, cm, 05/15/21 14:... Start Date: 05/15/21 Stop Date: 11/11/21 Status: OrderedZofran 4 mg oral tablet 1 tablet = 4 mg, By Mouth, Every 8 hours, PRN as needed for nausea/vomiting, # 15 tablet, 0 Refills,Maintenance, 04/01/21 23:03:00 EST, Tablet, [facility]/pharmacy #[id number], Partial fill upon patient request [...]
--- OUTSIDE RECORDS SUMMARY | 2021-12-30 21:47 | XMS_ITS | Continuity of Care Document ---
:1970 Author Organization [facility] Address [address] [place] [address]- Care Team Providers Name Role Phone Nasima Narayan DO Primary Care Physician Encounter [facility] Date(s): 07/21/20 - 07/22/[address] [address]- Encounter Diagnosis Back pain, chronic (Final) - 07/21/20 Chest pain (Final) - 07/21/20 Shortness of breath (Final) - 07/21/20 Discharge Disposition: A-D/C Home Attending Physician: Fidel [...] Not Given Patient Refuses 1Result Comment: [05/03/2018] [id number] Comment: [05/03/2018] [id number] Note: pt stated she did not want to receive vaccine today, may want later Medications albuterol-ipratropium 3 mg-0.5 mg/3 ml inhalation solution 3 mL, Inhalation, 4 times a day, # 360 mL, 1 Refills, Maintenance, 12/13/19 8:19:00 EDT, Inhalation Solution, [facility], 3 mL Inhalation 4 times a day, 141, cm, 12/07/19 12:18:00 EDT, Height, 100.5, kg, 12/05/19 3:32:00 EDT, Dry Weight Start Date: 12/13/19 Status: OrderedAzithromycin 5 Day Dose Pack 250 mg oral tablet 1 pack/packet, By Mouth, Once, # 6 tablet, 0 Refills, Soft Stop, 06/27/20 15:07:00 EDT, Tablet, [facility]/pharmacy #[id number], Partial fill upon patient [...] 01/06/20 10:18:00 EDT, Route to Pharmacy Electronically, [facility], 142, cm, 01/06/20 8:20:00EDT, Height, 103, kg, 01/04/20 18:55:00 EDT, Dry... Start Date: 01/06/20 Status: Orderedcetirizine 10 mg oral tablet 1 tablet, By Mouth, Daily, # 90 tablet, 1 Refills, Maintenance, 12/23/19 16:02:00 EDT, [facility]/pharmacy #[id number], 142, cm, 12/15/19 7:46:00 [...] tablet, 1 Refills, Maintenance, 12/02/19 14:20:00 EDT, [facility]/pharmacy #[id number], 1 tablet By Mouth [...] capsule, 3 Refills, Maintenance, 06/30/20 12:45:00 EDT, [facility]/pharmacy #0859, 142, cm, 06/27/20 14:47:00 EDT, Height, 100, kg, 06/18/20 15:45:00 EDT, Dry Weight Start Date: 06/30/20 Stop Date: 10/28/20 Status: Orderedduloxetine 60 mg oral enteric coated capsule 1 capsule, By Mouth, Daily, # 30 capsule, 0 Refills, Maintenance, 11/21/19 12:43:00 EDT, [facility] STORE 71711, 142, cm, 11/16/19 8:05:00 EDT, Height, 90.7, kg, 10/11/19 1:24:00 EDT, Dry Weight Start Date: 11/21/19 Status: OrderedDupixent 300 mg/2 mL subcutaneous solution 0 Refills, Maintenance, 11/17/19 4:27:00 EDT Start Date: 11/17/19 Status: Orderedfluticasone 50 mcg/inh nasal spray 1 sprays, Nares, Both, 2 times a day, 0 Refills, Maintenance, 11/17/19 4:21:00 EDT, [place] Start Date: 11/17/19 Status: Orderedlamotrigine 25 mg oral tablet 25 mg, 1, tablet, By Mouth, 2 times a day, # 60 tablet, Refills 0, Maintenance, 11/17/19 4:23:00 EDT Start Date: 11/17/19 Status: OrderedLasix 20 mg oral tablet 20 mg, 1, tablet, By Mouth, Daily, # 7 tablet, Refills 0, Tot. Refills 0, Maintenance, 07/15/20 22:03:00 EDT, Route to Pharmacy Electronically, [facility]/pharmacy #[id number], Partial fill upon patient request if the [...] tablet, 0 Refills, Maintenance, 01/30/20 14:58:00 EST, [facility] STORE 75381, 143, cm, 01/14/20 22:55:00 EDT, Height, 101, kg, 01/14/20 22:55:00 EDT, Dry Weight Start Date: 01/30/20 Status: Orderedlidocaine 4% topical film 1 patch, Topically, Daily, # 30 patch, 0 Refills, Maintenance, 01/06/20 10:41:00 EDT, Film, [facility] 3, 142, cm, 01/06/20 8:20:00 EDT, Height, 103, kg, 01/04/20 18:55:00 EDT, Dry Weight Start Date: 01/06/20 Stop Date: 02/05/20 Status: Orderedmagnesium oxide 400 mg (240 mg elemental magnesium) oral tablet 1 tablet, By Mouth, Daily, # 90 tablet, 3 Refills, Acute, 04/10/20 10:44:00 EST, [facility] STORE [facility]26, 90, TAKE 1 TABLET BY MOUTH EVERY DAY, 143, cm, 03/27/20 7:23:00 EST, Height, 101, kg, 01/14/20 22:55:00EDT, Dry Weight Start Date: 04/10/20 Status: Orderedmeloxicam 7.5 mg oral tablet 1 tablet, By Mouth, Daily, # 30 tablet, 0 Refills, Maintenance, 11/23/19 18:18:00 EDT, [facility], 142, cm, 11/16/19 8:05:00 EDT, Height, 90.7, [...] Refills, Maintenance, 12/19/19 13:39:00 EDT, Tablet, [facility]/pharmacy #0859, 142, cm, 12/15/19 7:46:00 [...] 3 Refills, Maintenance, 01/10/20 7:53:00 EDT, Capsule, [facility]/pharmacy #0859, 142, cm, 01/08/20 22:31:00 EDT, [...] tablet, 0 Refills,Maintenance, 06/08/20 22:23:00 EST, Tablet, [facility]/pharmacy #[id number], Partial fill upon patient request ifthe [...] Exam Date Time Procedure Performing Provider Status 07/21/20 10:19 PM Chest 2 Views Frontal and April Fiore ; Auth (Verified) Lat Notes:(Chest 2 Views Frontal and Lat) Reason For Exam: Shortness of Breath, Fever;Other:RESULT: Chest 2 Views Frontal and Lat Chest 2 Views Frontal and Lat Hx of Present Illness: Shortness of Breath, Fever; Clinical Question(s): Pneumonia COMPARISON: 07/15/2020 FINDINGS: LINES AND TUBES: None. LUNGS AND PLEURA: Clear lungs. Normal pulmonary vascularity. No pleural effusion. No pneumothorax. HEART, MEDIASTINUM AND REY: Heart is normal in size. Normal upper mediastinal and hilar contour. BONES AND SOFT TISSUES: No acute abnormality. IMPRESSION: No acute abnormality. WSN: [id number] Ordering Physician: Carmen Hendrickson Dictated By: Jonny Jordan DO Dictated Date/Time: 07/21/20 10:22 p Reviewed By: Jonny Jordan DO Signed By: Jonny Jordan DO Signed Date/Time: 07/21/20 10:22 pm Transcribed By: ANAYELI Transcribed Date/Time: 07/21/20 10:22 pm Vital Signs Most recent to oldest 1 2 3 [Reference Range]: Oxygen Saturation [94-100 %] 98 % 97 % 99 % (07/22/20 3:33 AM) (07/22/20 2:04 AM) (07/22/20 1:5 8 AM) Pulse Rate [55-90 bpm] 78 bpm 75 bpm 69 bpm (07/22/20 3:33 AM) (07/22/20 2:04 AM) (07/22/20 1:5 8 AM) Blood Pressure [90-138/55-84 127/60 mm Hg 125/50 mm Hg 113 /99 mm Hg mm Hg] (07/22/20 3:33 AM) (07/22/20 2:04 AM) (07/22/20 1:5 8 AM) Respiratory Rate [16-30 18 br/min 16 br/min 18 br/mi n br/min] (07/22/20 3:33 AM) (07/22/20 2:04 AM) (07/22/20 1:5 8 AM) Temperature [96.8-100.4 DegF] 98 DegF 98 DegF 98 DegF (07/22/20 3:33 AM) (07/22/20 2:04 AM) (07/21/20 10: 00 PM) Mode of Delivery (Oxygen) Room air Room air Room a ir (07/22/20 3:33 AM) (07/22/20 2:04 AM) (07/22/20 1:5 8 AM) Blood pressure sites Arm, left Arm, left Arm, left (07/22/20 3:33 AM) (07/22/20 2:04 AM) (07/22/20 1:5 8 AM) Temperature Route Oral Oral (07/21/20 10:00 PM) (07/21/20 8:14 PM) Social History Social History Type Response Smoking Status Never (less than 100 in life time) entered on: 01/01/20 Sex
--- OUTSIDE RECORDS SUMMARY | 2021-12-30 21:47 | XMS_ITS | Continuity of Care Document ---
:1970 Author Organization [facility] Address [address] [place] [address]- Care Team Providers Name Role Phone Pbjonas Nasima FAITH Primary Care Physician Encounter [facility] Date(s): 09/22/20 - 09/23/[address] [address]- Encounter Diagnosis Stroke-like symptom (Final) - 09/22/20 Asthma-COPD overlap syndrome (Discharge Diagnosis) - 09/22/20 Discharge Disposition: A-D/C Home Attending Physician: Abdoul Goss MD Admitting Physician: Otis Diaz MD Referring Physician: Not on Staff, Referring [...] Not Given Patient Refuses 1Result Comment: [05/03/2018] [id number] Comment: [05/03/2018] [id number] Note: pt stated she did not want to receive vaccine today, may want later Medications albuterol-ipratropium 3 mg-0.5 mg/3 ml inhalation solution 3 mL, Inhalation, 4 times a day, # 360 mL, 1 Refills, Maintenance, 12/13/19 8:19:00 EDT, Inhalation Solution, [facility] 3, 3 mL Inhalation 4 times a [...] capsule, 3 Refills, Maintenance, 06/30/20 12:45:00 EDT, [facility]/pharmacy #[id number], 142, cm, 06/27/20 14:47:00 EDT, Height, 100, kg, 06/18/20 15:45:00 EDT, Dry Weight Start Date: 06/30/20 Stop Date: 10/28/20 Status: Orderedduloxetine 60 mg oral enteric coated capsule 1 capsule, By Mouth, Daily, # 30 capsule, 0 Refills, Maintenance, 11/21/19 12:43:00 EDT, [facility] STORE 47082, 142, cm, 11/16/19 8:05:00 EDT, Height, 90.7, kg, 10/11/19 1:24:00 EDT, Dry Weight Start Date: 11/21/19 Status: OrderedDupixent 300 mg/2 mL subcutaneous solution 0 Refills, Maintenance, 11/17/19 4:27:00 EDT Start Date: 11/17/19 Status: Orderedfluticasone 50 mcg/inh nasal spray 1 sprays, Nares, Both, 2 times a day, 0 Refills, Maintenance, 11/17/19 4:21:00 EDT, [place] Start Date: 11/17/19 Status: Orderedlamotrigine 25 mg oral tablet 25 mg, 1, tablet, By Mouth, 2 times a day, # 60 tablet, Refills 0, Maintenance, 11/17/19 4:23:00 EDT Start Date: 11/17/19 Status: OrderedLasix 20 mg oral tablet 20 mg, 1, tablet, By Mouth, Daily, # 7 tablet, Refills 0, Tot. Refills 0, Maintenance, 07/15/20 22:03:00 EDT, Route to Pharmacy Electronically, [facility]/pharmacy #[id number], Partial fill upon patient request if the [...] tablet, 0 Refills, Maintenance, 01/30/20 14:58:00 EST, [facility] STORE 78566, 143, cm, 01/14/20 22:55:00 EDT, Height, 101, kg, 01/14/20 22:55:00 EDT, Dry Weight Start Date: 01/30/20 Status: Orderedlidocaine 4% topical film 1 patch, Topically, Daily, # 30 patch, 0 Refills, Maintenance, 01/06/20 10:41:00 EDT, Film, [facility] 3, 142, cm, 01/06/20 8:20:00 EDT, Height, 103, kg, 01/04/20 18:55:00 EDT, Dry Weight Start Date: 01/06/20 Stop Date: 02/05/20 Status: Orderedmagnesium oxide 400 mg (240 mg elemental magnesium) oral tablet 1 tablet, By Mouth, Daily, # 90 tablet, 3 Refills, Acute, 04/10/20 10:44:00 EST, [facility] STORE 17949, 90, TAKE 1 TABLET BY MOUTH EVERY [...] 0 Refills, Maintenance, 12/19/19 13:39:00 EDT, Tablet, [facility]/pharmacy #[id number], 142, cm, 12/15/19 7:46:00 EDT, Height, 91, kg, 12/13/19 15:07:00 EDT, Dry Weight Start Date: 12/19/19 Status: OrderedoxyCODONE 5 mg oral tablet 5 mg, Tablet, By Mouth, Every 4 hours, PRN for Pain , Moderate, Routine, 09/23/20 2:34:00 EDT Start Date: 09/23/20 Stop Date: 09/24/20 Status: Discontinuedpantoprazole 20 mg oral delayed release tablet TAKE [...] disorder)(Confirmed) Leg swelling(Confirmed) Active Ulcerative colitis(Confirmed) Active Diagnosis Diagnosis Type Effective Dates Health Status Clinical In formant Service Asthma-COPD Discharge 09/22/20 overlap syndrome Diagnosis Results Radiology Reports Exam Date Time Procedure Performing Provider Status 09/22/20 7:43 PM Chest Portable Ivonne Melendez; Jairo (Bennykeila carty) Notes:(Chest Portable) Reason For Exam: Stroke;Other:RESULT: Chest Portable Chest Portable Hx of Present Illness: Stroke alert, left sided deficit; Reason: Stroke; Clinical Question(s): CHF COMPARISON: 09/09/2020. FINDINGS: LINES AND TUBES: None. LUNGS AND PLEURA: Diminished lung volumes. No pleural effusion. No pneumothorax. HEART, MEDIASTINUM AND REY: Heart is normal in size. Normal upper mediastinal and hilar contour. BONES AND SOFT TISSUES: No acute abnormality. IMPRESSION: Low volumes, no convincing evidence of acute process. WSN: [id number] Ordering Physician: Kristopher Raines Dictated By: Uday Perez MD Dictated Date/Time: 09/22/20 7:54 pm Reviewed By: Uday Perez MD Signed By: Uday Perez MD Signed Date/Time: 09/22/20 7:54 pm Transcribed By: ANAYELI Transcribed Date/Time: 09/22/20 7:53 pm Vital Signs Most recent to oldest 1 2 3 [Reference Range]: Oxygen Saturation [94-100 %] 97 % 95 % 95 % (09/23/20 7:25 AM) (09/23/20 3:53 AM) (09/22/20 10: 23 PM) Pulse Rate [55-90 bpm] 86 bpm 69 bpm 64 bpm (09/23/20 7:25 AM) (09/23/20 3:53 AM) (09/22/20 10: 23 PM) Blood Pressure [90-138/55-84 146/95 mm Hg 125/73 mm Hg 120 /80 mm Hg mm Hg] *H* (09/23/20 3:53 AM) (09/22/20 10:23 PM) (09/23/20 7:25 AM) Respiratory Rate [16-30 18 br/min 17 br/min 20 br/mi n br/min] (09/23/20 10:16 AM) (09/23/20 7:25 AM) (09/23/20 3: 53 AM) Temperature [96.8-100.4 DegF] 97.2 DegF 97.6 DegF 98 .2 DegF (09/23/20 7:25 AM) (09/23/20 3:53 AM) (09/22/20 10: 23 PM) Mode of Delivery (Oxygen) Room air Room air Room a ir (09/23/20 7:25 AM) (09/23/20 3:53 AM) (09/22/20 10: 23 PM) Blood pressure sites Arm, left Arm, right Arm, right (09/23/20 7:25 AM) (09/23/20 3:53 AM) (09/22/20 10: 23 PM) Temperature Route Oral Oral Oral (09/23/20 7:25 AM) (09/23/20 3:53 AM) (09/22/20 10: 23 PM) Social History Social History Type Response Smoking Status Never (less than 100 in life time) entered on: 01/01/20 Sex
--- OUTSIDE RECORDS SUMMARY | 2021-12-30 21:47 | XMS_ITS | Continuity of Care Document ---
:1970 Author Organization [facility] Address [address] [place] [address]- Care Team Providers Name Role Phone Go Schwarz MD Primary Care Physician Encounter [facility] Date(s): 09/09/19 - 09/10/[address] [address]- [facility] Encounter Diagnosis Shortness of breath (Final) - 09/10/19 Discharge Disposition: A-D/C Home Attending Physician: Horacio Conroy MD Admitting Physician: Horacio Conroy MD Referring Physician: Not on Staff, Referring [...] Not Given Patient Refuses 1Result Comment: [05/03/2018] [id number] Comment: [05/03/2018] [id number] Note: pt stated she did not want [...] Refills, Maintenance, 06/16/19 11:33:00 EDT, CR Capsule, [facility]/pharmacy #[id number], 143, cm, 06/09/19 7:23:00 EDT, [...] 0 Refills, Maintenance, 09/09/19 19:51:00 EDT, Gel, [facility]/pharmacy #[id number], 1 application Topically 2 times [...] Refills, Soft Stop, 04/28/19 17:14:00 EST, Liquid, [facility]/pharmacy #[id number], 150 mL By Mouth Once, [...] tablet, 0 Refills, Maintenance, 08/23/19 8:24:00 EDT, [facility] STORE 00311, 142, cm, 08/08/19 8:45:00 EDT, Height, 89, kg, 08/03/19 13:47:00 EDT, Dry Weight Start Date: 08/23/19 Status: Orderedmontelukast 10 mg oral tablet 10 mg, 1, tablet, By Mouth, Daily, Refills 0, Maintenance, 08/25/19 4:35:00 EDT Start Date: 08/25/19 Status: Orderednystatin 208651 u/ml oral suspension 1 mL = 100,000 units, By Mouth, 4 times a day, # 30 mL, 0 Refills, Maintenance, 08/25/19 4:36:00 EDT, Suspension Start Date: 08/25/19 Status: Orderedondansetron 4 mg oral tablet 1 tablet = 4 mg, By Mouth, Every 8 hours, PRN as needed for nausea and vomiting, # 15 tablet, 0 Refills, Maintenance, 08/10/19 15:44:00 EDT, Tablet, [facility]/pharmacy #[id number], 142, cm, 08/08/19 8:45:00 EDT, [...] Exam Date Time Procedure Performing Provider Status 09/10/19 2:17 AM Chest Portable Lamar Sheffield; Auth (Verified ) Notes:(Chest Portable) Reason For Exam: Shortness of BreathRESULT: Chest Portable Chest Portable , AP upright Refer to EMR; Reason: Shortness of Breath; Clinical Question(s): CHF; Hx of Present Illness: increasing SOB since yesterday, non productive cough, bilateral leg swelling, reports newly started on lasix, and has noted decreased urination; Other Objective Findings: alert oriented, calm cooperative approp riate, resps equal unlab able to speak clear full sent, skin warm dry, pitting edema BLE, MAEI, COMPARISON: None. FINDINGS: LINES AND TUBES: None. LUNGS AND PLEURA: Clear lungs. Hypoinflation. Large body habitus mildly limits lung detail. Normal pulmonary vascularity. No pleural effusion. No pneumothorax. HEART, MEDIASTINUM AND REY: Heart is normal in size. Normal mediastinal and hilar contour. BONES AND SOFT TISSUES: No acute abnormality. IMPRESSION: Negative. WSN: [id number] Ordering Physician: Brittney Graves Dictated By: Rajat Moreno MD Dictated Date/Time: 09/10/19 8:11 am Reviewed By: Rajat Moreno MD Signed By: Rajat Moreno MD Signed Date/Time: 09/10/19 8:11 am Transcribed By: ANAYELI Transcribed Date/Time: 09/10/19 8:10 am Vital Signs Most recent to oldest 1 2 3 [Reference Range]: Oxygen Saturation [94-100 %] 98 % 99 % 96 % (09/10/19 7:39 AM) (09/10/19 5:50 AM) (09/10/19 4:2 5 AM) Pulse Rate [55-90 bpm] 98 bpm 90 bpm 86 bpm *H* (09/10/19 5:50 AM) (09/10/19 4:25 AM) (09/10/19 7:39 AM) Blood Pressure [90-138/55-84 mm 140/98 mm Hg 171/93 mm Hg 136/89 mm Hg Hg] *H* *H* (09/10/19 4:25 AM ) (09/10/19 7:39 AM) (09/10/19 5:50 AM) Respiratory Rate [16-30 br/min] 16 br/min 16 br/min 16 br/min (09/10/19 7:39 AM) (09/10/19 5:50 AM) (09/10/19 4:2 5 AM) Temperature [96.8-100.4 DegF] 98.6 DegF 97.9 DegF 98 .1 DegF (09/10/19 7:39 AM) (09/10/19 4:25 AM) (09/10/19 2:1 0 AM) Mode of Delivery (Oxygen) Room air Room air Room a ir (09/10/19 7:39 AM) (09/10/19 4:25 AM) (09/10/19 2:1 0 AM) Blood pressure sites Arm, left Arm, left Arm, left (09/10/19 7:39 AM) (09/10/19 5:50 AM) (09/10/19 4:2 5 AM) Temperature Route Oral Oral Oral (09/10/19 7:39 AM) (09/10/19 4:25 AM) (09/10/19 2:1 0 AM) Social History Social History Type Response Smoking Status Never smoker; Tobacco user i n household: No entered on: 10/25/14 Sex
--- OUTSIDE RECORDS SUMMARY | 2021-12-30 21:47 | XMS_ITS | Continuity of Care Document ---
:1970 Author Organization [facility] Address [address] [place] [phone]- Care Team Providers Name Role Phone Go Schwarz MD Primary Care Physician [place] [facility] [place] 08/25/[address] [address]- [facility] Discharge Disposition: A-D/C Home Attending Physician: Froilan Mazariegos MD Admitting Physician: Froilan Mazariegos MD Referring Physician: Not on Staff, Referring [...] Not Given Patient Refuses 1Result Comment: [05/03/2018] [id number] Comment: [05/03/2018] [id number] Note: pt stated she did not want [...] Refills, Maintenance, 06/16/19 11:33:00 EDT, CR Capsule, [facility]/pharmacy #[id number], 143, cm, 06/09/19 7:23:00 EDT, Height, [...] MOUTH EVERY DAY Start Date: 08/25/19 Status: Orderedclindamycin 150 mg oral capsule 3 capsule = 450 mg, By Mouth, Every 8 hours, for 5 days, # 45 capsule, 0 Refills, Acute 08/26/19 23:29:00 EDT, 08/21/19 23:29:00 EDT, Capsule, [facility]/pharmacy #[id number], 142, cm, 08/08/19 8:45:00 EDT, Height,89, kg, 08/03/19 13:47:00 EDT, Dry Weight Start Date: 08/21/19 Stop Date: 08/26/19 Status: OrderedclonazePAM 1 mg oral tablet = [...] 0 Refills, Maintenance, 08/10/19 15:44:00 EDT, Gel, [facility]/pharmacy #[id number], 1 application Topically 2 times [...] 09/03/19 11:09:00 EDT, 08/24/19 11:09:00 EDT, Capsule, [facility]/pharmacy #[id number], 142, cm, 08/08/19 8:45:00 EDT, [...] Refills, Soft Stop, 04/28/19 17:14:00 EST, Liquid, [facility]/pharmacy #0315, 150 mL By Mouth Once, [...] tablet, 0 Refills, Maintenance, 08/23/19 8:24:00 EDT, [facility] STORE 05862, 142, cm, 08/08/19 8:45:00 EDT, Height, 89, kg, 08/03/19 13:47:00 EDT, Dry Weight Start Date: 08/23/19 Status: Orderedmontelukast 10 mg oral tablet 10 mg, 1, tablet, By Mouth, Daily, Refills 0, Maintenance, 08/25/19 4:35:00 EDT Start Date: 08/25/19 Status: Orderednystatin 023412 u/ml oral suspension 1 mL = 100,000 units, By Mouth, 4 times a day, # 30 mL, 0 Refills, Maintenance, 08/25/19 4:36:00 EDT, Suspension Start Date: 08/25/19 Status: Orderedondansetron 4 mg oral tablet 1 tablet = 4 mg, By Mouth, Every 8 hours, PRN as needed for nausea and vomiting, # 15 tablet, 0 Refills, Maintenance, 08/10/19 15:44:00 EDT, Tablet, [facility]/pharmacy #0859, 142, cm, 08/08/19 8:45:00 EDT, [...] Maintenance, 10/04/18 11:38:13 EDT, Tablet Start Date: 7/8/19 Status: OrderedTrulance 3 mg oral tablet 0 [...] Range]: Oxygen Saturation [94-100 %] 99 % 99 % 97 % (08/25/19 11:24 AM) (08/25/19 11:22 AM) (08/25/19 9 :59 AM) Pulse Rate [55-90 bpm] 78 bpm 96 bpm 91 bpm (08/25/19 11:24 AM) *H* *H* (08/25/19 11:22 AM) (08/25/19 9:59 AM) Blood Pressure [90-138/55-84 136/83 mm Hg 136/83 mm Hg 136 /83 mm Hg mm Hg] (08/25/19 11:24 AM) (08/25/19 11:22 AM) (08/25/19 9 :59 AM) Respiratory Rate [16-30 18 br/min 18 br/min 18 br/mi n br/min] (08/25/19 11:24 AM) (08/25/19 11:22 AM) (08/25/19 9 :59 AM) Temperature [96.8-100.4 DegF] 97.9 DegF 97.8 DegF 97 .7 DegF (08/25/19 11:24 AM) (08/25/19 11:22 AM) (08/25/19 6 :56 AM) Mode of Delivery (Oxygen) Room air Room air Room a ir (08/25/19 11:24 AM) (08/25/19 11:22 AM) (08/25/19 9 :59 AM) Blood pressure sites Arm, left Arm, right Arm, left (08/25/19 11:24 AM) (08/25/19 11:22 AM) (08/25/19 9 :59 AM) Temperature Route Oral Oral Oral (08/25/19 11:24 AM) (08/25/19 11:22 AM) (08/25/19 6 :56 AM) Social History Social History Type Response Smoking Status Never smoker; Tobacco user i n household: No entered on: 10/25/14 Sex
--- OUTSIDE RECORDS SUMMARY | 2021-12-30 21:47 | XMS_ITS | Continuity of Care Document ---
:1970 Author Organization [facility] Address [address] [place] [address]- Care Team Providers Name Role Phone Fidel Sheffield MD, Mohan Primary Care Physician Encounter [facility] [place] Date(s): 06/12/19 - 06/12/[address] [address]- [facility] Encounter Diagnosis Precordial chest pain (Final) - 06/12/19 Discharge Disposition: A-D/C Home Attending Physician: Ludwin Dubon MD Admitting Physician: Ludwin Dubon MD Referring Physician: Not on Staff, Referring [...] Not Given Patient Refuses 1Result Comment: [05/03/2018] [id number] Comment: [05/03/2018] [id number] Note: pt stated she did not want to receive vaccine today, may want later Medications Apriso 0.375 g oral capsule, extended release 4 capsule = 1.5 Gm, By Mouth, Daily in AM, # 56 capsule, 3 Refills, Maintenance, 04/19/19 13:22:00 EST, CR Capsule, [facility]/pharmacy #[id number], 142, cm, 04/15/19 9:03:00 EST, Height, [...] capsule, 3 Refills, Maintenance, 04/19/19 13:22:00EST, Capsule, [facility]/pharmacy #0859, 142, cm, 04/15/19 9:03:00 EST, Height, [...] 11:00:00 EDT, 04/01/19 13:49:00 EST, EC Tablet, [facility]/pharmacy #0859, 142, cm, 04/01/19 11:22:00 EST, Height, [...] Refills, Soft Stop, 04/28/19 17:14:00 EST, Liquid, [facility]/pharmacy #0315, 150 mL By Mouth Once, 142, cm, 04/28/19 9:05:00 EST, Height, 92.6, kg, 03/30/19 10:30:00 EST, Dry Weight Start Date: 04/28/19 Status: OrderedMiraLax oral powder for reconstitution = 17 Gm, By Mouth, Daily, dissolve in water before taking, # 255 Gm, 1 Refills, Acute 06/23/19 11:00:00 EDT, 04/01/19 13:47:00 EST, REC Powder, [facility]/pharmacy #0859, 17 Gm By Mouth Daily,Instr:dissolve in [...] 10/04/18 Status: OrderedpredniSONE 20 mg oral tablet 1 tablet = 20 mg, By Mouth, Daily, # 7 tablet, 0 Refills, Maintenance, 06/12/19 22:03:00 EDT, [facility], 143, cm, 06/09/19 7:23:00 EDT, Height, 91, kg, 06/06/19 18:37:00 EDT, Dry Weight Start Date: 06/12/19 Stop Date: 06/19/19 Status: OrderedProAir HFA 90 mcg/inh inhalation aerosol [...] Exam Date Time Procedure Performing Provider Status 06/12/19 9:57 PM Chest 2 Views Frontal and Lat Ruddy Harmon; Au th (Verified) Notes:(Chest 2 Views Frontal and Lat) Reason For Exam: Shortness of Breath, Fever;Other:RESULT: Chest 2 Views Frontal and Lat Chest 2 Views Frontal and Lat Indication:; Shortness of Breath, Fever; Clinical Question(s): Pneumonia; Hx of Present Illness: cp and SOB for approx 1 week, also states she has a cough, CP worse today, reproducible, found with o2 of 90 placed on 4L; COMPARISON: Multiple priors with the most recent 06/03/2019 FINDINGS: LINES AND TUBES: Tubing overlying the left chest likely external to the patient. LUNGS AND PLEURA: Clear lungs. Normal pulmonary vascularity. No pleural effusion. No pneumothorax. HEART, MEDIASTINUM AND REY: Heart is normal in size. Normal mediastinal and hilar contour. BONES AND SOFT TISSUES: No acute abnormality. Mild degenerative changes of the spine. Mild S-shaped scoliotic curve of the spine. IMPRESSION: No acute abnormality. I have personally reviewed the images and I agree with this report. WSN: [id number] Ordering Physician: Ludwin Dubon Dictated By: Dayton Owen DO Dictated Date/Time: 06/12/19 10:07 p Reviewed By: Jourdan Girard MD Signed By: Jourdan Girard MD Signed Date/Time: 06/12/19 10:12 pm Transcribed By: ANAYELI Transcribed Date/Time: 06/12/19 10:02 pm Vital Signs Most recent to oldest 1 2 3 [Reference Range]: Oxygen Saturation [94-100 %] 97 % 97 % (06/12/19 10:44 PM) (06/12/19 8:09 PM) Pulse Rate [55-90 bpm] 86 bpm 89 bpm (06/12/19 10:44 PM) (06/12/19 8:09 PM) Blood Pressure [90-138/55-84 118/75 mm Hg 122/98 mm Hg mm Hg] (06/12/19 10:44 PM) (06/12/19 8:09 PM) Respiratory Rate [16-30 18 br/min 20 br/min 20 br/mi n br/min] (06/12/19 10:44 PM) (06/12/19 10:04 PM) (06/12/19 8 :09 PM) Temperature [96.8-100.4 DegF] 98.4 DegF (06/12/19 8:09 PM) Liters per Minute 2 L/min (06/12/19 8:09 PM) Mode of Delivery (Oxygen) Room air Nasal cannula (06/12/19 10:44 PM) (06/12/19 8:09 PM) Blood pressure sites Arm, left Arm, left (06/12/19 10:44 PM) (06/12/19 8:09 PM) Temperature Route Oral (06/12/19 8:09 PM) Social History Social History Type Response Smoking Status Never smoker; Tobacco user i n household: No entered on: 10/25/14 Sex Female
--- OUTSIDE RECORDS SUMMARY | 2021-12-30 21:47 | XMS_ITS | Continuity of Care Document ---
:1970 Author Organization [facility] Address [address] [place] [address]- Care Team Providers Name Role Phone Nasima Narayan DO Primary Care Physician Encounter [facility] Date(s): 09/20/20 - 11/08/20 [facility] [place] [address] [place], [place] [address] Attending Physician: Kiran Diaz MD Allergies, Adverse Reactions, Alerts Substance Reaction [...] Not Given Patient Refuses 1Result Comment: [05/03/2018] [id number] Comment: [05/03/2018] [id number] Note: pt stated she did not want to receive vaccine today, may want later Medications acetaminophen 325 mg oral tablet 650 mg, 2, tablet, By Mouth, Every 4 hours, PRN, for 14 days, # 100 tablet, Refills 0, Tot. Refills 0, Acute 11/18/20 23:32:00 EDT, as needed for pain, 11/04/20 23:32:00 EDT, Route to Pharmacy [facility]ically, [id number], Partial fill upon meeta... Start Date: 11/04/20 Stop Date: 11/18/20 Status: Orderedalbuterol-ipratropium 3 mg-0.5 mg/3 ml inhalation solution 3 mL, Inhalation, 4 times a day, # 360 mL, 1 Refills, Maintenance, 12/13/19 8:19:00 EDT, Inhalation Solution, [facility], 3 mL Inhalation 4 times a day, 141, cm, 12/07/19 12:18:00 EDT, Height, 100.5, kg, 12/05/19 3:32:00 EDT, Dry Weight Start Date: 12/13/19 Status: OrderedApriso 0.375 g oral capsule, extended release 4 capsule = 1.5 Gm, By Mouth, Daily in AM, # 120 capsule, 4 Refills, Maintenance, 09/07/20 8:50:00 EDT, CR Capsule, [facility]/pharmacy #[id number], Partial fill upon patient request [...] tablet, 1 Refills, Maintenance, 12/23/19 16:02:00 EDT, [facility]/pharmacy #[id number], 142, cm, 12/15/19 7:46:00 EDT, [...] tablet, 1 Refills, Maintenance, 12/02/19 14:20:00 EDT, [facility]/pharmacy #[id number], 1 tablet By Mouth Daily, [...] capsule, 3 Refills, Maintenance, 09/28/20 7:41:00 EDT, [facility]/pharmacy #0859, 143, cm, 09/20/20 19:45:00 EDT, Height, 106.6, kg, 09/20/20 19:45:00 EDT, Dry Weight Start Date: 09/28/20 Stop Date: 01/26/21 Status: Orderedduloxetine 60 mg oral enteric coated capsule 1 capsule, By Mouth, Daily, # 30 capsule, 0 Refills, Maintenance, 11/21/19 12:43:00 EDT, [facility] STORE 10433, 142, cm, 11/16/19 8:05:00 EDT, Height, 90.7, kg, 10/11/19 1:24:00 EDT, Dry Weight Start Date: 11/21/19 Status: OrderedDupixent 300 mg/2 mL subcutaneous solution 0 Refills, Maintenance, 11/17/19 4:27:00 EDT Start Date: 11/17/19 Status: Orderedfluticasone 50 mcg/inh nasal spray 1 sprays, Nares, Both, 2 times a day, 0 Refills, Maintenance, 11/17/19 4:21:00 EDT, [place] Start Date: 11/17/19 Status: Orderedibuprofen 200 mg oral tablet 400 mg, 2, tablet, By Mouth, Every 4 hours, PRN, for 14 days, # 100 tablet, Refills 0, Tot. Refills 0, Acute 11/18/20 23:32:00 EDT, for pain, 11/04/20 23:32:00 EDT, Route to Pharmacy Electronically, [facility]/pharmacy #[id number], Partial fill upon patient reques... Start [...] tablet, 0 Refills, Maintenance, 01/30/20 14:58:00 EST, [facility] STORE 36490, 143, cm, 01/14/20 22:55:00 EDT, Height, 101, kg, 01/14/20 22:55:00 EDT, Dry Weight Start Date: 01/30/20 Status: Orderedlidocaine 4% topical film 1 patch, Topically, Daily, # 30 patch, 0 Refills, Maintenance, 01/06/20 10:41:00 EDT, Film, [facility] 3, 142, cm, 01/06/20 8:20:00 EDT, Height, 103, kg, 01/04/20 18:55:00 EDT, Dry Weight Start Date: 01/06/20 Stop Date: 02/05/20 Status: Orderedlidocaine 5% topical film 1 patch, Topically, Daily, PRN Pain , Mild, remove after 12 hours, # 13 each, 0 Refills, Maintenance, 11/04/20 23:32:00 EDT, Film, [facility]/pharmacy #[id number], Partial fill upon patient request if the prescription is for a schedule II opioid drug., 1 patch Top... Start Date: 11/04/20 Status: Orderedmagnesium oxide 400 mg (240 mg elemental magnesium) oral tablet 1 tablet, By Mouth, Daily, # 90 tablet, 3 Refills, Acute, 04/10/20 10:44:00 EST, [facility], 90, TAKE 1 TABLET BY MOUTH EVERY [...] 0 Refills, Maintenance, 12/19/19 13:39:00 EDT, Tablet, [id number], 142, cm, 12/15/19 7:46:00 EDT, [...]
--- OUTSIDE RECORDS SUMMARY | 2021-12-30 21:48 | XMS_ITS | Continuity of Care Document ---
:1970 Author Organization [facility] Address Unavailable , Care Team Providers Name Role Phone Nasima Narayan DO Primary Care Physician [place] [facility] 04/02[place]21 - 04/09/21 [facility] Attending Physician: Yu Moses RD Allergies, Adverse Reactions, Alerts Substance Reaction Severity Status sulfADIAZINE Rash Active droperidol Anaphylactic reaction Persistent Severe Active penicillins Rash Active Toradol Active Keflex Rash Active Diamox1, 2 C/O: itching Persistent Moderate Active Glutens rash Active 02/07/22; 0650: pt reports she is not allergic to diamox. pt takes this med daily at this [id number] Immunizations Given and Recorded Vaccine Date Status Refusal Reason tetanus/diphtheria/pertussis, acel(Tdap) 08/16/20 Given tetanus/diphtheria/pertussis, acel(Tdap)1 02/19/13 Record ed influenza virus vaccine, inactivated 03/31/19 Given influenza virus vaccine, inactivated 12/04/17 Recorded pneumococcal 23-valent vaccine2 08/28/15 Recorded Not Given Vaccine Date Status Refusal Reason pneumococcal 23-valent vaccine3 01/04/18 Not Given Patient Refuses 1Result Comment: [05/03/2018] [id number] Comment: [05/03/2018] [id number] Note: pt stated she did not want to receive vaccine today, may want later Medications Apriso 0.375 g oral capsule, extended release 4 capsule = 1.5 Gm, By Mouth, Daily in AM, # 120 capsule, 4 Refills, Maintenance, 04/01/21 11:02:00 EST, CR Capsule, [id number], Partial fill upon patient request if the prescription is for a schedule II opioid drug., 142, cm, 03/25/21 21:03:0... Start Date: 04/01/21 Stop Date: 08/29/21 Status: Orderedbuprenorphine 20 mcg/hr transdermal film, extended release 0 Refills, Maintenance, 01/10/21 8:38:00 EDT, Partial fill upon patient request if the prescription is for a schedule II opioid drug. Start Date: 01/10/21 Status: OrderedbuPROPion 150 mg/24 hours (XL) oral tablet, extended release 1 tablet = 150 mg, By Mouth, Every 24 hours, # 90 tablet, 0 Refills, Maintenance, 11/17/19 4:25:00 EDT, ER Tablet Start Date: 11/17/19 Status: Orderedcetirizine 10 mg oral tablet 1 tablet, By Mouth, Daily, # 90 tablet, 1 Refills, Maintenance, 12/23/19 16:02:00 EDT, [facility]/pharmacy #[id number], 142, cm, 12/15/19 [...] tablet, 1 Refills, Maintenance, 12/02/19 14:20:00 EDT, [facility]/pharmacy #0859, 1 tablet By Mouth Daily, [...] Refills, Maintenance, 11/21/19 12:43:00 EDT, [facility], 142, cm, 11/16/19 8:05:00 EDT, Height, 90.7, kg, 10/11/19 1:24:00 EDT, Dry Weight Start Date: 11/21/19 Status: OrderedDupixent 300 mg/2 mL subcutaneous solution Every 14 days, 0 Refills, Maintenance, 11/17/19 4:27:00 EDT Start Date: 11/17/19 Status: Orderedfluticasone 50 mcg/inh nasal spray 1 sprays, Nares, Both, 2 times a day, 0 Refills, Maintenance, 11/17/19 4:21:00 EDT, [place] Start Date: 11/17/19 Status: OrderedLatuda 40 mg oral tablet 1 tablet = 40 mg, By Mouth, Daily, # 30 tablet, 0 Refills, Maintenance, 11/17/19 4:22:00 EDT, Tablet Start Date: 11/17/19 Status: Orderedlevothyroxine 0.137 mg oral tablet 1 tablet, By Mouth, Daily, # 90 tablet, 0 Refills, Maintenance, 01/30/20 14:58:00 EST, [facility], 143, cm, 01/14/20 22:55:00 EDT, Height, 101, kg, 01/14/20 22:55:00 EDT, Dry Weight Start Date: 01/30/20 Status: Orderedlidocaine 4% topical film 1 patch, Topically, Daily, # 30 patch, 0 Refills, Maintenance, 01/06/20 10:41:00 EDT, Film, [facility] 3, 142, cm, 01/06/20 8:20:00 EDT, Height, 103, kg, 01/04/20 18:55:00 EDT, Dry Weight Start Date: 01/06/20 Stop Date: 02/05/20 Status: Orderedlidocaine 5% topical film 1 patch, Topically, Daily, PRN Pain , Mild, remove after 12 hours, # 13 each, 0 Refills, Maintenance, 11/04/20 23:32:00 EDT, Film, [facility]/pharmacy #0859, Partial fill upon patient request if the prescription is for a schedule II opioid drug., 1 patch Top... Start Date: 11/04/20 Status: Orderedmagnesium oxide 400 mg oral tablet 1 tablet, By Mouth, Daily, # 90 tablet, 3 Refills, [facility] STORE 63611, 143, cm, 04/02/21 3:19:00 EST, Height, 96.2, [...] 0 Refills, Maintenance, 12/19/19 13:39:00 EDT, Tablet, [facility]/pharmacy #0859, 142, cm, 12/15/19 [...] II opioid drug. Start Date: 06/27/20 Status: OrderedZofran 4 mg oral tablet 1 tablet = 4 mg, By Mouth, Every 8 hours, PRN as needed for nausea/vomiting, # 15 tablet, 0 Refills,Maintenance, 04/01/21 23:03:00 EST, Tablet, [facility]/pharmacy #[id number], Partial fill upon [...] 100 in life time) entered on: 01/01/20 Sex"
--- OUTSIDE RECORDS SUMMARY | 2021-12-30 21:48 | XMS_ITS | Continuity of Care Document ---
:1970 Author Organization [facility] Address [address], [address], [address] [place] [address]- Care Team Providers Name Role Phone Go Schwarz MD Primary Care Physician [place] [facility] [place]04[place] - 11/03/19 [facility] [address], [address], [address] [place] [address]- [facility] Allergies, Adverse Reactions, Alerts Substance Reaction Severity [...] Not Given Patient Refuses 1Result Comment: [05/03/2018] [id number] Comment: [05/03/2018] [id number] Note: pt stated she did not want [...] Refills, Soft Stop, 10/11/19 13:41:00 EDT, Tablet, [facility]/pharmacy #0859, 140, cm, 10/11/19 1:24:00 EDT, Height, [...] Daily, # 30 tablet, 0 Refills, Maintenance, 11/03/19 17:40:00 EDT, [facility] STORE 00974, 140, cm, 10/11/19 1:24:00 EDT, Height, 90.7, kg, 10/11/19 1:24:00 EDT, Dry Weight Start Date: 11/03/19 Status: Orderedcimetidine 200 mg oral tablet TAKE [...] 0 Refills, Maintenance, 09/09/19 19:51:00 EDT, Gel, [facility]/pharmacy #0859, 1 application Topically 2 times [...] 0 Refills, Maintenance, 10/27/19 19:52:00 EDT, Capsule, [facility]/pharmacy #0859, 140, cm, 10/11/19 1:24:00 EDT, Height, [...] tablet, Refills 2, Tot. Refills 0, Maintenance, 11/03/19 17:40:00 EDT, Route to Pharmacy Electronically, [facility] STORE 57303, 140, cm, 10/11/19 1:24:00 EDT, Height,90.7, kg, 10/11/19 1:24:00 EDT, Dry Weight Start Date: 11/03/19 Status: OrderedLatuda 20 mg oral tablet 1 tablet = 20 mg, By Mouth, Daily, # 30 tablet, 0 Refills, Maintenance, 08/25/19 4:35:00 EDT, Tablet Start Date: 08/25/19 Status: Orderedlevothyroxine 0.137 mg oral tablet 1 tablet, By Mouth, Daily, # 30 tablet, 5 Refills, Maintenance, 10/20/19 9:31:00 EDT, [facility]/pharmacy #0859, 140, cm, 10/11/19 1:24:00 EDT, Height, 90.7, kg, 10/11/19 1:24:00 EDT, Dry Weight Start Date: 10/20/19 Stop Date: 04/17/20 Status: Orderedmagnesium citrate 8.85% oral liquid 150 mL = 8.725 Gm, By Mouth, Once, # 300 mL, 0 Refills, Soft Stop, 04/28/19 17:14:00 EST, Liquid, [facility]/pharmacy #0315, 150 mL By Mouth Once, 142, cm, 04/28/19 9:05:00 EST, Height, 92.6, kg, 03/30/19 10:30:00 EST, Dry Weight Start Date: 04/28/19 Status: Orderedmagnesium oxide 400 mg oral tablet TAKE 1 TABLET BY MOUTH EVERY DAY Start Date: 08/25/19 Status: Orderedmeloxicam 7.5 mg oral tablet 1 tablet, By Mouth, Daily, # 30 tablet, 0 Refills, Maintenance, 10/27/19 13:05:00 EDT, [facility] STORE 31297, 140, cm, 10/11/19 1:24:00 EDT, Height, 90.7, [...] EDT, Supply Start Date: 10/14/19 Status: Orderednystatin 848903 u/ml oral suspension 1 mL = 100,000 units, By Mouth, 4 times a day, # 30 mL, 0 Refills, Maintenance, 08/25/19 4:36:00 EDT, [place] Start Date: 08/25/19 Status: Orderedondansetron 4 mg oral tablet 1 tablet = 4 mg, By Mouth, Every 8 hours, PRN as needed for nausea and vomiting, # 15 tablet, 0 Refills, Maintenance, 08/10/19 15:44:00 EDT, Tablet, [facility], 142, cm, 08/08/19 8:45:00 EDT, Height, [...] 0 Refills, Maintenance, 10/14/19 14:35:00 EDT, Tablet, [facility], 140, cm, ... Start Date: 10/14/19 Status: Orderedpregabalin 75 mg oral capsule 1 capsule = 75 mg, By Mouth, 2 times a day, # 60 capsule, 0 Refills, Maintenance, 11/03/19 17:43:00 EDT, Capsule, [facility], 140, cm, 10/11/19 1:24:00 EDT, Height, 90.7, kg, 10/11/19 1:24:00 EDT, Dry Weight Start Date: 11/03/19 Status: OrderedProAir HFA 90 mcg/inh inhalation aerosol with adapter 180 mcg, 2, puffs, Inhalation, Every 4 hours, PRN, Refills 0, Maintenance, 10/04/18 11:33:33 EDT, Inhaler Start Date: 10/04/18 Status: OrderedPromethazine DM 6.25 mg-15 mg/5 mL oral syrup 5 mL, By Mouth, Every 6 hours, PRN for cough, # 120 mL, 0 Refills, Maintenance, 10/11/19 13:42:00 EDT, Syrup, [facility], 5 mL By Mouth Every 6 [...]
--- OUTSIDE RECORDS SUMMARY | 2021-12-30 21:48 | XMS_ITS | Continuity of Care Document ---
:1970 Author Organization [facility] Address [address] [place] [address]- Care Team Providers Name Role Phone Fidel Sheffield MD, Mohan Primary Care Physician [place] [facility] [place]): 01/11/19 - 06/12/19 [facility] [address] [address]- [facility] Discharge Disposition: A-D/C Home Attending Physician: Antonette Patel MD Admitting Physician: Antonette Patel MD Referring Physician: Mohan Chew MD Allergies, Adverse Reactions, Alerts Substance Reaction [...] Not Given Patient Refuses 1Result Comment: [05/03/2018] [id number] Comment: [05/03/2018] [id number] Note: pt stated she did not want to receive vaccine today, may want later Medications Apriso 0.375 g oral capsule, extended release 4 capsule = 1.5 Gm, By Mouth, Daily in AM, # 56 capsule, 3 Refills, Maintenance, 04/19/19 13:22:00 EST, CR Capsule, [facility]/pharmacy #[id number], 142, cm, 04/15/19 9:03:00 EST, Height, [...] capsule, 3 Refills, Maintenance, 04/19/19 13:22:00EST, Capsule, [facility]/pharmacy #0859, 142, cm, 04/15/19 9:03:00 EST, Height, [...] 11:00:00 EDT, 04/01/19 13:49:00 EST, EC Tablet, [facility]/pharmacy #0859, 142, cm, 04/01/19 11:22:00 EST, Height, [...] Soft Stop, 04/28/19 17:14:00 EST, Liquid, [facility]/pharmacy #0315, 150 mL By Mouth Once, 142, cm, 04/28/19 9:05:00 EST, Height, 92.6, kg, 03/30/19 10:30:00 EST, Dry Weight Start Date: 04/28/19 Status: OrderedMiraLax oral powder for reconstitution = 17 Gm, By Mouth, Daily, dissolve in water before taking, # 255 Gm, 1 Refills, Acute 06/23/19 11:00:00 EDT, 04/01/19 13:47:00 EST, REC Powder, [facility]/pharmacy #0859, 17 Gm By Mouth Daily,Instr:dissolve in [...] tablet, 0 Refills, Maintenance, 06/12/19 22:03:00 EDT, [facility]/pharmacy #0859, 143, cm, 06/09/19 [...]
--- OUTSIDE RECORDS SUMMARY | 2021-12-30 21:48 | XMS_ITS | Continuity of Care Document ---
:1970 Author Organization [facility] Address [address] [address]- Care Team Providers Name Role Phone Sylvain FAITH Nasima Primary Care Physician Encounter [facility] Date(s): 04/19/21 - 05/19/21 [facility] [address] [id number] Allergies, Adverse Reactions, Alerts Substance Reaction [...] Not Given Patient Refuses 1Result Comment: [05/03/2018] [id number] Comment: [05/03/2018] [id number] Note: pt stated she did not want to receive vaccine today, may want later Medications Apriso 0.375 g oral capsule, extended release 4 capsule = 1.5 Gm, By Mouth, Daily in AM, # 120 capsule, 4 Refills, Maintenance, 04/01/21 11:02:00 EST, CR Capsule, [facility], Partial fill upon patient request if the [...] Refills, Maintenance, 11/21/19 12:43:00 EDT, [facility], 142, cm, 11/16/19 8:05:00 EDT, Height, 90.7, kg, 10/11/19 1:24:00 EDT, Dry Weight Start Date: 11/21/19 Status: OrderedDupixent 300 mg/2 mL subcutaneous solution Every 14 days, 0 Refills, Maintenance, 11/17/19 4:27:00 EDT Start Date: 11/17/19 Status: Orderedfluticasone 50 mcg/inh nasal spray 1 sprays, Nares, Both, 2 times a day, 0 Refills, Maintenance, 11/17/19 4:21:00 EDT, [place] Start Date: 11/17/19 Status: OrderedLatuda 40 mg oral tablet 1 tablet = 40 mg, By Mouth, Daily, # 30 tablet, 0 Refills, Maintenance, 11/17/19 4:22:00 EDT, Tablet Start Date: 11/17/19 Status: Orderedlevothyroxine 0.137 mg oral tablet 1 tablet, By Mouth, Daily, # 90 tablet, 0 Refills, Maintenance, 01/30/20 14:58:00 EST, [facility], 143, cm, 01/14/20 22:55:00 EDT, Height, 101, kg, 01/14/20 22:55:00 EDT, Dry Weight Start Date: 01/30/20 Status: Orderedmagnesium oxide 400 mg oral tablet 1 tablet, By Mouth, Daily, # 90 tablet, 3 Refills, [facility], 143, cm, 04/02/21 3:19:00 EST, Height, 96.2, [...] 0 Refills, Maintenance, 04/01/21 23:03:00EST, CR Capsule, [facility]/pharmacy #0859, Partial fill upon patient request [...] opioid drug. Start Date: 04/11/21 Status: OrderedpredniSONE 10 mg oral tablet 4 tablet = 40 mg, By Mouth, Daily, for 8 days, 4 tablets daily for 2 days,3 daily for 2 days,2 dailyfor 2 days,1 daily for 2 days and stop, # 20 tablet, 0 Refills, Acute 05/23/21 14:15:00 EST, 05/15/21 14:15:00 EST, Tablet, [facility], [place]... Start Date: 05/15/21 Stop Date: 05/23/21 Status: OrderedpredniSONE 5 mg oral tablet See [...] 5 Refills, Maintenance, 05/15/21 14:16:00 EST, Powder, [facility]/pharmacy #0859, Partial fill upon patient request if the prescription is fora schedule II opioid drug., 143, cm, 05/15/21 14:... Start Date: 05/15/21 Stop Date: 11/11/21 Status: OrderedZofran 4 mg oral tablet 1 tablet = 4 mg, By Mouth, Every 8 hours, PRN as needed for nausea/vomiting, # 15 tablet, 0 Refills,Maintenance, 04/01/21 23:03:00 EST, Tablet, [facility]/pharmacy #0859, Partial fill upon patient request [...]
--- OUTSIDE RECORDS SUMMARY | 2021-12-30 21:48 | XMS_ITS | Continuity of Care Document ---
:1970 Author Organization [facility] Address [address] [place] [address]- Care Team Providers Name Role Phone Fidel Sheffield MD, Mohan Primary Care Physician Encounter [id number] Date(s): 04/04/19 - 07/06/[address] [address]- [facility] Attending Physician: Mohan Chew MD Admitting Physician: Mohan Chew MD Referring Physician: Mohan Chew MD Allergies, [...] Not Given Patient Refuses 1Result Comment: [05/03/2018] [id number] Comment: [05/03/2018] [id number] Note: pt stated she did not want [...] capsule, 3 Refills, Maintenance, 04/19/19 13:22:00EST, Capsule, [facility]/pharmacy #0859, 142, cm, 04/15/19 9:03:00 EST, [...] 11:00:00 EDT, 04/01/19 13:49:00 EST, EC Tablet, [facility]/pharmacy #0859, 142, cm, 04/01/19 11:22:00 EST, [...]
--- OUTSIDE RECORDS SUMMARY | 2021-12-30 21:48 | XMS_ITS | Continuity of Care Document ---
:1970 Author Organization [facility] Address [address] [place] [address]- Care Team Providers Name Role Phone PbcristoferNasima stewart DO Primary Care Physician Encounter [facility] R [id number] Date(s): 01/02/21 - 02/01/21 [facility] [address] [place] [address]- Attending Physician: Vinny Cornejo Admitting Physician: Vinny Cornejo Referring Physician: [id number] Allergies, Adverse Reactions, Alerts Substance Reaction Severity Status sulfADIAZINE Rash Active droperidol Anaphylactic reaction Persistent Severe Active penicillins Rash Active Toradol Active Diamox1 C/O: itching Persistent Moderate Active [...] Not Given Patient Refuses 1Result Comment: [05/03/2018] [id number] Comment: [05/03/2018] [id number] Note: pt stated she did not want to receive vaccine today, may want later Medications acetaminophen 325 mg oral tablet 650 mg, 2, tablet, By Mouth, Every 6 hours, PRN, for 5 days, not to exceed 4000 mg/day As needed forpain or fever, # 24 tablet, Refills 0, Tot. Refills 0, Acute 02/06/21 15:49:00 EST, Pain , Mild, 02/01/21 15:49:00 EDT, Route to Pharmacy Electronic[facility]... Start Date: 02/01/21 Stop Date: 02/06/21 Status: Orderedalbuterol-ipratropium 3 mg-0.5 mg/3 ml inhalation solution 3 mL, Inhalation, 4 times a day, # 360 mL, 1 Refills, Maintenance, 12/13/19 8:19:00 EDT, Inhalation Solution, [facility], 3 mL Inhalation 4 times a day, 141, cm, 12/07/19 12:18:00 EDT, Height, 100.5, kg, 12/05/19 3:32:00 EDT, Dry Weight Start Date: 12/13/19 Status: OrderedApriso 0.375 g oral capsule, extended release 4 capsule = 1.5 Gm, By Mouth, Daily in AM, # 120 capsule, 4 Refills, Maintenance, 12/04/20 10:31:00 EDT, CR Capsule, [facility]/pharmacy #[id number], Partial fill upon patient request if the prescription is for a schedule II opioid drug., 142, cm, 12/02/20 20:36:0... Start Date: 12/04/20 Stop Date: 05/03/21 Status: Orderedbuprenorphine 20 mcg/hr transdermal film, extended [...] tablet, 1 Refills, Maintenance, 12/02/19 14:20:00 EDT, [facility]/pharmacy #[id number], 1 tablet By Mouth Daily, 142, [...] capsule, 3 Refills, Maintenance, 09/28/20 7:41:00 EDT, [facility]/pharmacy #[id number], 143, cm, 09/20/20 19:45:00 EDT, Height, 106.6, kg, 09/20/20 19:45:00 EDT, Dry Weight Start Date: 09/28/20 Stop Date: 01/26/21 Status: Orderedduloxetine 60 mg oral enteric coated capsule 1 capsule, By Mouth, Daily, # 30 capsule, 0 Refills, Maintenance, 11/21/19 12:43:00 EDT, [facility], 142, cm, 11/16/19 8:05:00 EDT, Height, 90.7, kg, 10/11/19 1:24:00 EDT, Dry Weight Start Date: 11/21/19 Status: OrderedDupixent 300 mg/2 mL subcutaneous solution Every 14 days, 0 Refills, Maintenance, 11/17/19 4:27:00 EDT Start Date: 11/17/19 Status: Orderedfluticasone 50 mcg/inh nasal spray 1 sprays, Nares, Both, 2 times a day, 0 Refills, Maintenance, 11/17/19 4:21:00 EDT, [place] Start Date: 11/17/19 Status: Orderedlamotrigine 25 mg [...] tablet, 0 Refills, Maintenance, 01/30/20 14:58:00 EST, [facility] STORE 78992, 143, cm, 01/14/20 22:55:00 EDT, Height, 101, kg, 01/14/20 22:55:00 EDT, Dry Weight Start Date: 01/30/20 Status: Orderedlidocaine 4% topical film 1 patch, Topically, Daily, # 30 patch, 0 Refills, Maintenance, 01/06/20 10:41:00 EDT, Film, [facility] 3, 142, cm, 01/06/20 8:20:00 EDT, Height, 103, kg, 01/04/20 18:55:00 EDT, Dry Weight Start Date: 01/06/20 Stop Date: 02/05/20 Status: Orderedlidocaine 5% topical film 1 patch, Topically, Daily, PRN Pain , Mild, remove after 12 hours, # 13 each, 0 Refills, Maintenance, 11/04/20 23:32:00 EDT, Film, [facility]/pharmacy #[id number], Partial fill upon patient request if the prescription is for a schedule II opioid drug., 1 patch Top... Start Date: 11/04/20 Status: Orderedmagnesium oxide 400 mg (240 mg elemental magnesium) oral tablet 1 tablet, By Mouth, Daily, # 90 tablet, 3 Refills, Acute, 04/10/20 10:44:00 EST, [facility] STORE 80673, 90, TAKE 1 TABLET BY MOUTH EVERY [...] 0 Refills, Maintenance, 12/19/19 13:39:00 EDT, Tablet, [facility]/pharmacy #[id number], 142, cm, 12/15/19 7:46:00 EDT, Height, [...] a schedule II opioid drug. Start Date: 3/31/21 Status: Ordered Problem List Condition Effective Dates [...]
--- OUTSIDE RECORDS SUMMARY | 2021-12-30 21:48 | XMS_ITS | Continuity of Care Document ---
:1970 Author Organization [facility] Address [address] [place] [address]- Care Team Providers Name Role Phone Go Schwarz MD Primary Care Phys[id number] Date(s): 08/17/19 - 09/22/19 [facility] [address] [place] [address]- [facility] Attending Physician: Godwin Fisher MD Admitting Physician: Godwin Fisher MD Allergies, Adverse Reactions, Alerts Substance Reaction [...] Not Given Patient Refuses 1Result Comment: [05/03/2018] [id number] Comment: [05/03/2018] [id number] Note: pt stated she did not want to receive vaccine today, may want later Medications acetaminophen 500 mg oral tablet TAKE 2 TABLETS BY MOUTH 3 TIMES A DAY NEEDED FOR FEVER Start Date: 08/25/19 Status: OrderedbuPROPion 150 mg/24 hours (XL) oral [...] 0 Refills, Maintenance, 09/09/19 19:51:00 EDT, Gel, [facility]/pharmacy #[id number], 1 application Topically 2 times a [...] 05/30/19 15:33:00 EST Start Date: 05/30/19 Status: Orderedfurosemide 20 mg oral tablet 40 mg, 2, tablet, By Mouth, 2 times a day, # 60 tablet, Refills 2, Tot. Refills 2, Maintenance, 09/14/19 10:02:00 EDT, [id number] 142, cm, 09/13/19 9:15:00 EDT, Height, 91, kg, 09/07/19 23:12:00 EDT, Dry Weight Start Date: 09/14/19 Status: OrderedLatuda 20 mg oral tablet 1 tablet = 20 mg, By Mouth, Daily, # 30 tablet, 0 Refills, Maintenance, 08/25/19 4:35:00 EDT, Tablet Start Date: 08/25/19 Status: Orderedmagnesium citrate 8.85% oral liquid 150 mL = 8.725 Gm, By Mouth, Once, # 300 mL, 0 Refills, Soft Stop, 04/28/19 17:14:00 EST, Liquid, [id number], 150 mL By Mouth Once, 142, cm, 04/28/19 9:05:00 EST, Height, 92.6, kg, 03/30/19 10:30:00 EST, Dry Weight Start Date: 04/28/19 Status: Orderedmagnesium oxide 400 mg oral tablet TAKE 1 TABLET BY MOUTH EVERY DAY Start Date: 08/25/19 Status: Orderedmeloxicam 7.5 mg oral tablet 1 tablet, By Mouth, Daily, # 30 tablet, 0 Refills, Maintenance, 09/22/19 9:14:00 EDT, [facility] STORE [address]22, 142, cm, 09/13/19 9:15:00 EDT, Height, 91, kg, 09/07/19 23:12:00 EDT, Dry Weight Start Date: 09/22/19 Status: Orderedmontelukast 10 mg oral tablet 10 mg, 1, tablet, By Mouth, Daily, Refills 0, Maintenance, 08/25/19 4:35:00 EDT Start Date: 08/25/19 Status: Orderednystatin 556069 u/ml oral suspension 1 mL = 100,000 units, By Mouth, 4 times a day, # 30 mL, 0 Refills, Maintenance, 08/25/19 4:36:00 EDT, Suspension Start Date: 08/25/19 Status: Orderedondansetron 4 mg oral tablet 1 tablet = 4 mg, By Mouth, Every 8 hours, PRN as needed for nausea and vomiting, # 15 tablet, 0 Refills, Maintenance, 08/10/19 15:44:00 EDT, Tablet, [facility]/pharmacy #[id number], 142, cm, 08/08/19 8:45:00 EDT, Height, [...]
--- OUTSIDE RECORDS SUMMARY | 2021-12-30 21:48 | XMS_ITS | Continuity of Care Document ---
:1970 Author Organization [facility] Address [address] [place] [address]- Care Team Providers Name Role Phone Mohan Chew MD Primary Care Physician [phone] Encounter [facility] NBR [id number] Date(s): 07/12/19 - 07/19/[address] [address]- [facility] Attending Physician: Mohan Chew MD Allergies, Adverse Reactions, Alerts Substance Reaction Severity Status sulfADIAZINE Rash Active droperidol Anaphylactic reaction Persistent Severe Active penicillins Rash Active Diamox1 C/O: itching Persistent Moderate Active Glutens rash Active Keflex Rash Active 1itchy Immunizations Given and Recorded Vaccine Date Status Refusal Reason influenza virus vaccine, inactivated 03/31/19 Given influenza virus vaccine, inactivated 12/04/17 Recorded pneumococcal 23-valent vaccine1 08/28/15 Recorded tetanus/diphtheria/pertussis, acel(Tdap)3 02/19/13 Record ed Not Given Vaccine Date Status Refusal Reason pneumococcal 23-valent vaccine2 01/04/18 Not Given Patient Refuses 1Result Comment: [05/03/2018] [id number] Comment: [05/03/2018] [id number] Note: pt stated she did not want [...] Refills, Soft Stop, 04/28/19 17:14:00 EST, Liquid, [facility]/pharmacy #[id number], 150 mL By Mouth [...]
--- OUTSIDE RECORDS SUMMARY | 2021-12-30 21:48 | XMS_ITS | Continuity of Care Document ---
:1970 Author Organization [facility] Address [address] [place] [address]- Care Team Providers Name Role Phone Estelita Narayan DOa Primary Care Physician Encounter [facility] Date(s): 02/06/21 - 05/08/[address] [address] Attending Physician: Armen Claros Admitting Physician: Armen Claros Referring Physician: Armen Claros Allergies, Adverse Reactions, Alerts Substance Reaction Severity [...] Not Given Patient Refuses 1Result Comment: [05/03/2018] [id number] Comment: [05/03/2018] [id number] Note: pt stated she did not want to receive vaccine today, may want later Medications Apriso 0.375 g oral capsule, extended release 4 capsule = 1.5 Gm, By Mouth, Daily in AM, # 120 capsule, 4 Refills, Maintenance, 04/01/21 11:02:00 EST, CR Capsule, [id number], Partial fill upon patient request if the [...] 1 Refills, Maintenance, 12/23/19 16:02:00 EDT, [facility]/pharmacy #[id number], 142, cm, 12/15/19 7:46:00 EDT, [...] 1 Refills, Maintenance, 12/02/19 14:20:00 EDT, [facility]/pharmacy #[id number], 1 tablet By Mouth Daily, [...] capsule, 3 Refills, Maintenance, 09/28/20 7:41:00 EDT, [facility]/pharmacy #[id number], 143, cm, 09/20/20 19:45:00 EDT, Height, 106.6, kg, 09/20/20 19:45:00 EDT, Dry Weight Start Date: 09/28/20 Stop Date: 01/26/21 Status: Orderedduloxetine 60 mg oral enteric coated capsule 1 capsule, By Mouth, Daily, # 30 capsule, 0 Refills, Maintenance, 11/21/19 12:43:00 EDT, [facility], 142, cm, 11/16/19 8:05:00 EDT, Height, 90.7, kg, 10/11/19 1:24:00 EDT, Dry Weight Start Date: 11/21/19 Status: OrderedDupixent 300 mg/2 mL subcutaneous solution Every 14 days, 0 Refills, Maintenance, 11/17/19 4:27:00 EDT Start Date: 11/17/19 Status: Orderedfluticasone 50 mcg/inh nasal spray 1 sprays, Nares, Both, 2 times a day, 0 Refills, Maintenance, 11/17/19 4:21:00 EDT, [place] Start Date: 11/17/19 Status: OrderedLatuda 40 mg oral tablet 1 tablet = 40 mg, By Mouth, Daily, # 30 tablet, 0 Refills, Maintenance, 11/17/19 4:22:00 EDT, Tablet Start Date: 11/17/19 Status: Orderedlevothyroxine 0.137 mg oral tablet 1 tablet, By Mouth, Daily, # 90 tablet, 0 Refills, Maintenance, 01/30/20 14:58:00 EST, [facility], 143, cm, 01/14/20 22:55:00 EDT, Height, 101, kg, 01/14/20 22:55:00 EDT, Dry Weight Start Date: 01/30/20 Status: Orderedmagnesium oxide 400 mg oral tablet 1 tablet, By Mouth, Daily, # 90 tablet, 3 Refills, [facility], 143, cm, 04/02/21 3:19:00 EST, Height, 96.2, [...] 0 Refills, Maintenance, 04/01/21 23:03:00EST, CR Capsule, [facility]/pharmacy #[id number], Partial fill upon patient request [...] tablet, 0 Refills, Maintenance, 04/12/21 11:53:00 EST, [facility]/pharmacy #[id number], Partial fill upon patient request [...] tablet, 0 Refills,Maintenance, 04/01/21 23:03:00 EST, Tablet, [facility]/pharmacy #[id number], Partial fill upon patient request ifthe prescription [...]
--- OUTSIDE RECORDS SUMMARY | 2021-12-30 21:48 | XMS_ITS | Continuity of Care Document ---
:1970 Author Organization [facility] Address Unavailable , Care Team Providers Name Role Phone Nasmia Narayan DO Primary Care Physician Encounter [facility] Date(s): 02/15/21 - 02/22/21 [facility] Attending Physician: Yu Moses RD Referring Physician: Nasima Narayan DO Allergies, Adverse [...] Not Given Patient Refuses 1Result Comment: [05/03/2018] [id number] Comment: [05/03/2018] [id number] Note: pt stated she did not want to receive vaccine today, may want later Medications albuterol-ipratropium 3 mg-0.5 mg/3 ml inhalation solution 3 mL, Inhalation, 4 times a day, # 360 mL, 1 Refills, Maintenance, 12/13/19 8:19:00 EDT, Inhalation Solution, [facility], 3 mL Inhalation 4 times a day, 141, cm, 12/07/19 12:18:00 EDT, Height, 100.5, kg, 12/05/19 3:32:00 EDT, Dry Weight Start Date: 12/13/19 Status: OrderedApriso 0.375 g oral capsule, extended release 4 capsule = 1.5 Gm, By Mouth, Daily in AM, # 120 capsule, 4 Refills, Maintenance, 12/04/20 10:31:00 EDT, CR Capsule, [facility]/pharmacy #[id number], Partial fill upon patient request [...] tablet, 1 Refills, Maintenance, 12/23/19 16:02:00 EDT, [facility]/pharmacy #[id number], 142, cm, 12/15/19 7:46:00 EDT, [...] capsule, 3 Refills, Maintenance, 09/28/20 7:41:00 EDT, [facility]/pharmacy #[id number], 143, cm, 09/20/20 19:45:00 EDT, Height, 106.6, kg, 09/20/20 19:45:00 EDT, Dry Weight Start Date: 09/28/20 Stop Date: 01/26/21 Status: Orderedduloxetine 60 mg oral enteric coated capsule 1 capsule, By Mouth, Daily, # 30 capsule, 0 Refills, Maintenance, 11/21/19 12:43:00 EDT, [facility], 142, cm, 11/16/19 8:05:00 EDT, Height, 90.7, kg, 10/11/19 1:24:00 EDT, Dry Weight Start Date: 11/21/19 Status: OrderedDupixent 300 mg/2 mL subcutaneous solution Every 14 days, 0 Refills, Maintenance, 11/17/19 4:27:00 EDT Start Date: 11/17/19 Status: Orderedfluticasone 50 mcg/inh nasal spray 1 sprays, Nares, Both, 2 times a day, 0 Refills, Maintenance, 11/17/19 4:21:00 EDT, [place] Start Date: 11/17/19 Status: Orderedlamotrigine 25 mg [...] tablet, 0 Refills, Maintenance, 01/30/20 14:58:00 EST, [facility], 143, cm, 01/14/20 22:55:00 EDT, Height, 101, kg, 01/14/20 22:55:00 EDT, Dry Weight Start Date: 01/30/20 Status: Orderedlidocaine 4% topical film 1 patch, Topically, Daily, # 30 patch, 0 Refills, Maintenance, 01/06/20 10:41:00 EDT, Film, [facility] 3, 142, cm, 01/06/20 8:20:00 EDT, Height, 103, kg, 01/04/20 18:55:00 EDT, Dry Weight Start Date: 01/06/20 Stop Date: 02/05/20 Status: Orderedlidocaine 5% topical film 1 patch, Topically, Daily, PRN Pain , Mild, remove after 12 hours, # 13 each, 0 Refills, Maintenance, 11/04/20 23:32:00 EDT, Film, [facility]/pharmacy #[id number], Partial fill upon patient request if the prescription is for a schedule II opioid drug., 1 patch Top... Start Date: 11/04/20 Status: Orderedmagnesium oxide 400 mg (240 mg elemental magnesium) oral tablet 1 tablet, By Mouth, Daily, # 90 tablet, 3 Refills, Acute, 04/10/20 10:44:00 EST, [facility] 25891, 90, TAKE 1 TABLET BY MOUTH EVERY [...] 0 Refills, Maintenance, 12/19/19 13:39:00 EDT, Tablet, [facility]/pharmacy #[id number], 142, cm, 12/15/19 7:46:00 EDT, [...] Most recent to oldest [Reference Range]: 1 Height 142 cm (02/15/21 10:14 AM) Weight 105.8 kg (02/15/21 10:14 AM) Body Mass Index [18.5-24.99] 52.47 *>HHI* (02/15/21 10:14 AM) Social History Social History Type Response Smoking Status Never (less than 100 in life time) entered on: 01/01/20 Sex
--- OUTSIDE RECORDS SUMMARY | 2021-12-30 21:48 | XMS_ITS | Continuity of Care Document ---
:1970 Author Organization [facility] Address [address] [place] [address]- Care Team Providers Name Role Phone Go Schwarz MD Primary Care Physician [place] [facility] 11/21/19 - 12/21/19 [facility] [address] [place] [address]- [facility] Attending Physician: Vinny Cornejo Admitting Physician: AdmVinny [...] Not Given Patient Refuses 1Result Comment: [05/03/2018] [id number] Comment: [05/03/2018] [id number] Note: pt stated she did not want [...] Refills, Maintenance, 12/13/19 8:19:00 EDT, Inhalation Solution, [facility] 3, 3 mL Inhalation 4 times [...] tablet, By Mouth, Daily, # 30 tablet, 1 Refills, Maintenance, 11/28/19 12:52:00 EDT, [facility] STORE [address]6570, 142, cm, 11/23/19 23:52:00 EDT, Height, 90.7, kg, 10/11/19 1:24:00 EDT, Dry Weight Start Date: 11/28/19 Status: Orderedchlorpheniramine-hydrocodone 8 mg-10 mg/5 mL oral [...] 1 Refills, Maintenance, 12/02/19 14:20:00 EDT, [facility]/pharmacy #[id number], 1 tablet By Mouth Daily, 142, cm, 11/23/19 23:52:00 EDT, Height, 90.7, kg, 10/11/19 1:24:00 EDT, Dry Weight Start Date: 12/02/19 Status: Ordereddicyclomine 10 mg oral capsule 1 capsule = 10 mg, By Mouth, 3 times a day, PRN as needed for abdominal cramps, # 30 capsule, 0 Refills, Maintenance, 12/19/19 13:37:00 EDT, [facility]/pharmacy #0859, 142, cm, 12/15/19 7:46:00 EDT, Height, 91, kg, 12/13/19 15:07:00 EDT, Dry Weight Start Date: 12/19/19 Status: Orderedduloxetine 60 mg oral enteric coated capsule 1 capsule, By Mouth, Daily, # 30 capsule, 0 Refills, Maintenance, 11/21/19 12:43:00 EDT, [facility], 142, cm, 11/16/19 8:05:00 EDT, Height, 90.7, kg, 10/11/19 1:24:00 EDT, Dry Weight Start Date: 11/21/19 Status: OrderedDupixent 300 mg/2 mL subcutaneous solution 0 Refills, Maintenance, 11/17/19 4:27:00 EDT Start Date: 11/17/19 Status: Orderedfluticasone 50 mcg/inh nasal spray 1 sprays, Nares, Both, 2 times a day, 0 Refills, Maintenance, 11/17/19 4:21:00 EDT, [place] Start Date: 11/17/19 Status: Orderedlamotrigine 25 mg [...] Refills, Maintenance, 11/23/19 18:18:00 EDT, [facility], 142, cm, 11/16/19 8:05:00 EDT, Height, 90.7, kg, 10/11/19 1:24:00 EDT, Dry Weight Start Date: 11/23/19 Status: Orderedmontelukast 10 mg oral tablet 10 mg, 1, tablet, By Mouth, Daily in PM, # 30 tablet, Refills 0, Maintenance, 11/17/19 4:22:00 EDT Start Date: 11/17/19 Status: Orderednystatin 835587 u/ml oral suspension 1 mL = 100,000 units, By Mouth, 4 times a day, # 30 mL, 0 Refills, Maintenance, 11/17/19 4:28:00 EDT, Suspension Start Date: 11/17/19 Status: Orderedondansetron 4 mg oral tablet 1 tablet = 4 mg, By Mouth, Every 8 hours, PRN Nausea & Vomiting, # 10 tablet, 0 Refills, Maintenance, 12/19/19 13:39:00 EDT, Tablet, [facility]/pharmacy #[id number], 142, cm, 12/15/19 7:46:00 EDT, Height, [...] 0 Refills, Maintenance, 12/15/19 13:10:00 EDT, Tablet, [facility], 142, cm, 12/15/19 7:46:00 [...]
--- OUTSIDE RECORDS SUMMARY | 2021-12-30 21:48 | XMS_ITS | Continuity of Care Document ---
:1970 Author Organization [facility] Address [address] [place] [address]- Care Team Providers Name Role Phone Edie Bee MD Primary Care Phys[id number] Date(s): 06/14/21 - 07/14/21 [facility] [place] [address] [place], [place] [address] Allergies, Adverse Reactions, Alerts Substance Reaction [...] Not Given Patient Refuses 1Result Comment: [05/03/2018] [id number] Comment: [05/03/2018] [id number] Note: pt stated she did not want to receive vaccine today, may want later Medications Apriso 0.375 g oral capsule, extended release 4 capsule = 1.5 Gm, By Mouth, Daily in AM, # 120 capsule, 4 Refills, Maintenance, 01/03/22 11:02:00 EST, CR Capsule, [facility]/pharmacy #[id number], Partial fill upon patient request if [...] tablet, 1 Refills, Maintenance, 12/23/19 16:02:00 EDT, [facility]/pharmacy #[id number], 142, cm, 12/15/19 7:46:00 EDT, Height, [...] 05/29/21 18:11:00 EST, Route to Pharmacy Electronically, [facility]/pharmacy #[id number], Partial fill upon patient request if [...] Refills, Maintenance, 11/21/19 12:43:00 EDT, [facility], 142, cm, 11/16/19 8:05:00 EDT, Height, 90.7, kg, 10/11/19 1:24:00 EDT, Dry Weight Start Date: 11/21/19 Status: OrderedDupixent 300 mg/2 mL subcutaneous solution Every 14 days, 0 Refills, Maintenance, 11/17/19 4:27:00 EDT Start Date: 11/17/19 Status: Orderedfluticasone 50 mcg/inh nasal spray 1 sprays, Nares, Both, 2 times a day, 0 Refills, Maintenance, 11/17/19 4:21:00 EDT, [place] Start Date: 11/17/19 Status: OrderedLatuda 40 mg oral tablet 1 tablet = 40 mg, By Mouth, Daily, # 30 tablet, 0 Refills, Maintenance, 11/17/19 4:22:00 EDT, Tablet Start Date: 11/17/19 Status: Orderedlevothyroxine 0.137 mg oral tablet 1 tablet, By Mouth, Daily, # 90 tablet, 0 Refills, Maintenance, 01/30/20 14:58:00 EST, [facility], 143, cm, 01/14/20 22:55:00 EDT, Height, 101, kg, 01/14/20 22:55:00 EDT, Dry Weight Start Date: 01/30/20 Status: Orderedmagnesium oxide 400 mg oral tablet 1 tablet, By Mouth, Daily, # 90 tablet, 3 Refills, [facility] 31242, 143, cm, 04/02/21 3:19:00 EST, Height, 96.2, [...] 0 Refills, Maintenance, 04/01/21 23:03:00EST, CR Capsule, [facility]/pharmacy #[id number], Partial fill upon patient request if [...] EVERY DAY, # 30 tablet, 3 Refills, [facility] ST[facility] 33171, 142, cm, 06/23/21 21:09:00 EDT, Height, 92.5, kg, 06/23/21 21:09:00 EDT, Dry Weight Start Date: 07/08/21 Status: OrderedZofran 4 mg oral tablet 1 [...]
--- OUTSIDE RECORDS SUMMARY | 2021-12-30 21:48 | XMS_ITS | Continuity of Care Document ---
:1970 Author Organization [facility] Address [address] [place] [address]- Care Team Providers Name Role Phone Sylvain FAITH Nasima Primary Care Physician Encounter [facility] ACCT R [id number] Date(s): 01/01/21 - 05/01/21 [facility] [address] [place] [address]- Attending Physician: Don Farmer MD Admitting Physician: Don Farmer MD Referring Physician: Not on Staff, Referring [...] Not Given Patient Refuses 1Result Comment: [05/03/2018] [id number] Comment: [05/03/2018] [id number] Note: pt stated she did not want to receive vaccine today, may want later Medications Apriso 0.375 g oral capsule, extended release 4 capsule = 1.5 Gm, By Mouth, Daily in AM, # 120 capsule, 4 Refills, Maintenance, 04/01/21 11:02:00 EST, CR Capsule, [id number], Partial fill upon patient request if the [...] Refills, Maintenance, 11/21/19 12:43:00 EDT, [facility], 142, cm, 11/16/19 8:05:00 EDT, Height, 90.7, kg, 10/11/19 1:24:00 EDT, Dry Weight Start Date: 11/21/19 Status: OrderedDupixent 300 mg/2 mL subcutaneous solution Every 14 days, 0 Refills, Maintenance, 11/17/19 4:27:00 EDT Start Date: 11/17/19 Status: Orderedfluticasone 50 mcg/inh nasal spray 1 sprays, Nares, Both, 2 times a day, 0 Refills, Maintenance, 11/17/19 4:21:00 EDT, [place] Start Date: 11/17/19 Status: OrderedLatuda 40 mg oral tablet 1 tablet = 40 mg, By Mouth, Daily, # 30 tablet, 0 Refills, Maintenance, 11/17/19 4:22:00 EDT, Tablet Start Date: 11/17/19 Status: Orderedlevothyroxine 0.137 mg oral tablet 1 tablet, By Mouth, Daily, # 90 tablet, 0 Refills, Maintenance, 01/30/20 14:58:00 EST, [facility], 143, cm, 01/14/20 22:55:00 EDT, Height, 101, kg, 01/14/20 22:55:00 EDT, Dry Weight Start Date: 01/30/20 Status: Orderedmagnesium oxide 400 mg oral tablet 1 tablet, By Mouth, Daily, # 90 tablet, 3 Refills, [facility], 143, cm, 04/02/21 3:19:00 EST, Height, 96.2, [...] 0 Refills, Maintenance, 04/01/21 23:03:00EST, CR Capsule, [facility]/pharmacy #[id number], Partial fill upon patient [...] tablet, 0 Refills, Maintenance, 04/12/21 11:53:00 EST, [facility]/pharmacy #[id number], Partial fill upon patient [...]
--- OUTSIDE RECORDS SUMMARY | 2021-12-30 21:48 | XMS_ITS | Continuity of Care Document ---
:1970 Author Organization [facility] Address [address] [place] [address]- Care Team Providers Name Role Phone Nasima Narayan DO Primary Care Physician Encounter [facility] Date(s): 04/12/21 - 05/12/21 [facility] [address] [place] [address]- [place] Allergies, Adverse Reactions, Alerts Substance Reaction Severity [...] Not Given Patient Refuses 1Result Comment: [05/03/2018] [id number] Comment: [05/03/2018] [id number] Note: pt stated she did not want to receive vaccine today, may want later Medications Apriso 0.375 g oral capsule, extended release 4 capsule = 1.5 Gm, By Mouth, Daily in AM, # 120 capsule, 4 Refills, Maintenance, 04/01/21 11:02:00 EST, CR Capsule, [id number], Partial fill upon patient request if the [...] Refills, Maintenance, 11/21/19 12:43:00 EDT, [facility], 142, cm, 11/16/19 8:05:00 EDT, Height, 90.7, kg, 10/11/19 1:24:00 EDT, Dry Weight Start Date: 11/21/19 Status: OrderedDupixent 300 mg/2 mL subcutaneous solution Every 14 days, 0 Refills, Maintenance, 11/17/19 4:27:00 EDT Start Date: 11/17/19 Status: Orderedfluticasone 50 mcg/inh nasal spray 1 sprays, Nares, Both, 2 times a day, 0 Refills, Maintenance, 11/17/19 4:21:00 EDT, [place] Start Date: 11/17/19 Status: OrderedLatuda 40 mg oral tablet 1 tablet = 40 mg, By Mouth, Daily, # 30 tablet, 0 Refills, Maintenance, 11/17/19 4:22:00 EDT, Tablet Start Date: 11/17/19 Status: Orderedlevothyroxine 0.137 mg oral tablet 1 tablet, By Mouth, Daily, # 90 tablet, 0 Refills, Maintenance, 01/30/20 14:58:00 EST, [facility], 143, cm, 01/14/20 22:55:00 EDT, Height, 101, kg, 01/14/20 22:55:00 EDT, Dry Weight Start Date: 01/30/20 Status: Orderedmagnesium oxide 400 mg oral tablet 1 tablet, By Mouth, Daily, # 90 tablet, 3 Refills, [facility], 143, cm, 04/02/21 3:19:00 EST, Height, 96.2, [...] 0 Refills, Maintenance, 04/01/21 23:03:00EST, CR Capsule, [facility]/pharmacy #[id number], Partial fill upon patient [...] tablet, 0 Refills,Maintenance, 04/01/21 23:03:00 EST, Tablet, [facility]/pharmacy #[id number], Partial fill upon patient [...]
--- OUTSIDE RECORDS SUMMARY | 2021-12-30 21:48 | XMS_ITS | Continuity of Care Document ---
:1970 Author Organization [facility] Address [address] [place] [phone]- Care Team Providers Name Role Phone Go Schwarz MD Primary Care Physician Encounter [facility] Date(s): 12/12/19 - 12/15/[address] [address]- [facility] Encounter Diagnosis FLAQUITA (acute kidney injury) (Final) - 12/13/19 Discharge Disposition: A-D/C Home Attending Physician: Judy Velasco MD Admitting Physician: Byron OROZCO, Luis Alberto Del Rio Referring Physician: Not on Staff, Referring MD [...] Not Given Patient Refuses 1Result Comment: [05/03/2018] [id number] Comment: [05/03/2018] [id number] Note: pt stated she did not want [...] Refills, Maintenance, 12/13/19 8:19:00 EDT, Inhalation Solution, [facility], 3 mL Inhalation 4 [...] 1 Refills, Maintenance, 11/28/19 12:52:00 EDT, [facility] STORE 54934, 142, cm, 11/23/19 23:52:00 EDT, Height, 90.7, [...] Refills, Maintenance, 12/02/19 14:20:00 EDT, [facility]/pharmacy #0859, 1 tablet By Mouth Daily, 142, cm, 11/23/19 23:52:00 EDT, Height, 90.7, kg, 10/11/19 1:24:00 EDT, Dry Weight Start Date: 12/02/19 Status: Orderedduloxetine 60 mg oral enteric coated capsule 1 capsule, By Mouth, Daily, # 30 capsule, 0 Refills, Maintenance, 11/21/19 12:43:00 EDT, [facility] STORE 78335, 142, cm, 11/16/19 8:05:00 EDT, Height, 90.7, kg, 10/11/19 1:24:00 EDT, Dry Weight Start Date: 11/21/19 Status: OrderedDupixent 300 mg/2 mL subcutaneous solution 0 Refills, Maintenance, 11/17/19 4:27:00 EDT Start Date: 11/17/19 Status: Orderedfluticasone 50 mcg/inh nasal spray 1 sprays, Nares, Both, 2 times a day, 0 Refills, Maintenance, 11/17/19 4:21:00 EDT, [place] Start Date: 11/17/19 Status: Orderedlamotrigine 25 mg [...] Refills, Maintenance, 11/23/19 18:18:00 EDT, [facility], 142, cm, 11/16/19 8:05:00 EDT, Height, 90.7, kg, 10/11/19 1:24:00 EDT, Dry Weight Start Date: 11/23/19 Status: Orderedmontelukast 10 mg oral tablet 10 mg, 1, tablet, By Mouth, Daily in PM, # 30 tablet, Refills 0, Maintenance, 11/17/19 4:22:00 EDT Start Date: 11/17/19 Status: Orderednystatin 646615 u/ml oral suspension 1 mL = 100,000 units, By Mouth, 4 times a day, # 30 mL, 0 Refills, Maintenance, 11/17/19 4:28:00 EDT, Suspension Start Date: 11/17/19 Status: Orderedpantoprazole 20 mg [...] 0 Refills, Maintenance, 12/15/19 13:10:00 EDT, Tablet, [facility], 142, cm, 12/15/19 7:46:00 [...] Exam Date Time Procedure Performing Provider Status 12/12/19 10:13 PM Chest 2 Views Frontal and Lat Chetna , Verjohn; Auth (Verified) Notes:(Chest 2 Views Frontal and Lat) Reason For Exam: Shortness of Breath RESULT: Chest 2 Views Frontal and Lat Chest 2 Views Frontal and Lat Hx of Present Illness: SOb x1 day, Cp x3 9 10 radiates to R side, noticed a 10 pound weight gain in 1 day, wheezing bilat, here for hypokalemia recently; Reason: Shortness of Breath; Clinical Question(s): CHF COMPARISON: 12/02/2019 FINDINGS: LINES AND TUBES: None. LUNGS AND PLEURA: Clear lungs. Normal pulmonary vascularity. No pleural effusion. No pneumothorax. HEART, MEDIASTINUM AND REY: Heart is normal in size. Normal mediastinal and hilar contour. BONES AND SOFT TISSUES: No acute abnormality. IMPRESSION: No acute abnormality. WSN: [id number] Ordering Physician: Judith Rodrigez Dictated By: Jourdan Girard MD Dictated Date/Time: 12/12/19 10:15 p Reviewed By: Jourdan Girard MD Signed By: Jourdan Girard MD Signed Date/Time: 12/12/19 10:15 pm Transcribed By: ANAYELI Transcribed Date/Time: 12/12/19 10:14 pm Vital Signs Most recent to oldest 1 2 3 [Reference Range]: Height 142 cm 142 cm 142 cm (12/15/19 7:46 AM) (12/15/19 4:27 AM) (12/15/19 12: 20 AM) Weight 91 kg (12/13/19 3:07 PM) Oxygen Saturation [94-100 92 % 96 % 98 % %] *L* (12/15/19 4:27 AM) (12/15/19 12:20 AM) (12/15/19 7:46 AM) Pulse Rate [55-90 bpm] 104 bpm 103 bpm 87 bpm *H* *H* (12/15/19 12:20 A M) (12/15/19 7:46 AM) (12/15/19 4:27 AM) Body Mass Index 45.13 [18.5-24.99] *>HHI* (12/13/19 3:07 PM) Blood Pressure 117/85 mm Hg 101/65 mm Hg 109/66 mm Hg [90-138/55-84 mm Hg] (12/15/19 7:46 AM) (12/15/19 4:27 AM) (12/14/2 0 12:20 AM) Respiratory Rate [16-30 18 br/min 18 br/min 19 br/mi n br/min] (12/15/19 7:46 AM) (12/15/19 7:36 AM) (12/15/19 4:2 7 AM) Temperature [96.8-100.4 98.7 DegF 98.3 DegF 98.3 Deg F DegF] (12/15/19 7:46 AM) (12/15/19 4:27 AM) (12/15/19 12: 20 AM) Liters per Minute 0 L/min 0 L/min (12/13/19 12:18 PM) (12/13/19 10:35 AM) Mode of Delivery (Oxygen) Room air Room air Room a ir (12/15/19 7:46 AM) (12/15/19 4:27 AM) (12/15/19 12: 20 AM) Blood pressure sites Arm, right Arm, left Arm, left (12/15/19 7:46 AM) (12/15/19 4:27 AM) (12/15/19 12: 20 AM) Temperature Route Oral Oral Oral (12/15/19 7:46 AM) (12/15/19 4:27 AM) (12/15/19 12: 20 AM) Dry Weight 91 kg (12/13/19 3:07 PM) Weight Obtained Via Patient/family stated (12/13/19 3:07 PM) Dry Weight Obtained Via Patient/family stated (12/13/19 3:07 PM) Social History Social History Type Response Smoking Status Never smoker; Tobacco user i n household: No entered on: 10/25/14 Sex
--- OUTSIDE RECORDS SUMMARY | 2021-12-30 21:48 | XMS_ITS | Continuity of Care Document ---
:1970 Author Organization [facility] [place] Address [address] [place] [address]- Care Team Providers Name Role Phone Go Schwarz MD Primary Care Physician Encounter [facility] Date(s): 11/15/19 - 12/15/19 [facility] [place] [address] [place] [address]- [facility] Allergies, Adverse Reactions, Alerts Substance Reaction Severity [...] Not Given Patient Refuses 1Result Comment: [05/03/2018] [id number] Comment: [05/03/2018] [id number] Note: pt stated she did not want [...] Refills, Maintenance, 12/13/19 8:19:00 EDT, Inhalation Solution, [facility], 3 mL Inhalation 4 times [...] tablet, 1 Refills, Maintenance, 11/28/19 12:52:00 EDT, [facility]ORE 08968, 142, cm, 11/23/19 23:52:00 EDT, Height, 90.7, [...] tablet, 1 Refills, Maintenance, 12/02/19 14:20:00 EDT, [facility]/pharmacy #0859, 1 tablet By Mouth Daily, 142, cm, 11/23/19 23:52:00 EDT, Height, 90.7, kg, 10/11/19 1:24:00 EDT, Dry Weight Start Date: 12/02/19 Status: Orderedduloxetine 60 mg oral enteric coated capsule 1 capsule, By Mouth, Daily, # 30 capsule, 0 Refills, Maintenance, 11/21/19 12:43:00 EDT, [facility] ST[facility] 61342, 142, cm, 11/16/19 8:05:00 EDT, Height, 90.7, kg, 10/11/19 1:24:00 EDT, Dry Weight Start Date: 11/21/19 Status: OrderedDupixent 300 mg/2 mL subcutaneous solution 0 Refills, Maintenance, 11/17/19 4:27:00 EDT Start Date: 11/17/19 Status: Orderedfluticasone 50 mcg/inh nasal spray 1 sprays, Nares, Both, 2 times a day, 0 Refills, Maintenance, 11/17/19 4:21:00 EDT, [place] Start Date: 11/17/19 Status: Orderedlamotrigine 25 mg [...] tablet, 0 Refills, Maintenance, 11/23/19 18:18:00 EDT, [facility] 47884, 142, cm, 11/16/19 8:05:00 EDT, Height, 90.7, kg, 10/11/19 1:24:00 EDT, Dry Weight Start Date: 11/23/19 Status: Orderedmontelukast 10 mg oral tablet 10 mg, 1, tablet, By Mouth, Daily in PM, # 30 tablet, Refills 0, Maintenance, 11/17/19 4:22:00 EDT Start Date: 11/17/19 Status: Orderednystatin 797966 u/ml oral suspension 1 mL = 100,000 [...] 0 Refills, Maintenance, 12/15/19 13:10:00 EDT, Tablet, [facility], 142, cm, 12/15/19 7:46:00 EDT, [...]
--- OUTSIDE RECORDS SUMMARY | 2021-12-30 21:48 | XMS_ITS | Continuity of Care Document ---
:1970 Author Organization [facility] Address [address] [place] [address]- Care Team Providers Name Role Phone Mohan Chew MD Primary Care Physician Encounter [facility] [id number] Date(s): 07/08/19 - 07/15/19 [facility] [place] [address] [place] [address]- [facility] Attending Physician: Kiran Diaz MD Referring Physician: Mohan Chew MD Allergies, [...] Not Given Patient Refuses 1Result Comment: [05/03/2018] [id number] Comment: [05/03/2018] [id number] Note: pt stated she did not want [...] capsule, 3 Refills, Maintenance, 04/19/19 13:22:00EST, Capsule, [facility]/pharmacy #0859, 142, cm, 04/15/19 9:03:00 [...] Refills, Soft Stop, 04/28/19 17:14:00 EST, Liquid, [facility]/pharmacy #0315, 150 mL By Mouth [...]
--- OUTSIDE RECORDS SUMMARY | 2021-12-30 21:49 | XMS_ITS | Continuity of Care Document ---
:1970 Author Organization [facility] Address [address] [place] [address]- Care Team Providers Name Role Phone Go Schwarz MD Primary Care Physician Encounter [facility] Date(s): 10/17/19 - 11/16/19 [facility] [address] [place] [phone]- [facility] Allergies, Adverse Reactions, Alerts Substance Reaction [...] Not Given Patient Refuses 1Result Comment: [05/03/2018] [id number] Comment: [05/03/2018] [id number] Note: pt stated she did not want to receive vaccine today, may want later Medications acetaminophen 500 mg oral tablet TAKE 2 TABLETS BY MOUTH 3 TIMES A DAY NEEDED FOR FEVER Start Date: 08/25/19 Status: Orderedalbuterol-ipratropium 3 mg-0.5 mg/3 ml inhalation solution 1 vials, Inhalation, 4 times a day, PRN NEEDED FOR WHEEZING OR SHORTNESS OF BREATH, # 180 mL, 1 Refills, Maintenance, 11/07/19 12:29:00 EDT, [facility] STORE 00184, 15, INHALE 1 VIAL VIA NEBULIZER 4 TIMES A DAY NEEDED FOR WHEEZING OR SHORTNESS OF BREAT... Start Date: 11/07/19 Status: OrderedAzithromycin 5 Day Dose Pack 250 mg oral tablet 1 pack/packet, By Mouth, Once, Take 2 tablets daily for first day then 1 tablet daily x 4 days, # 6 tablet, 0 Refills, Soft Stop, 10/11/19 13:41:00 EDT, Tablet, [facility]/pharmacy #0859, 140, cm, 10/11/19 1:24:00 EDT, [...] tablet, 0 Refills, Maintenance, 11/03/19 17:40:00 EDT, [facility], 140, cm, 10/11/19 1:24:00 EDT, Height, 90.7, [...] 0 Refills, Maintenance, 09/09/19 19:51:00 EDT, Gel, [facility]/pharmacy #0859, 1 application Topically 2 times [...] 0 Refills, Maintenance, 10/27/19 19:52:00 EDT, Capsule, [facility]/pharmacy #0859, 140, cm, 10/11/19 1:24:00 EDT, Height, 90.7, kg, 10/11/19 1:24:00 EDT, Dry Weight Start Date: 10/27/19 Status: OrderedDupixent Subcutaneous Infusion, Once, 0 Refills, Maintenance, 05/30/19 15:33:00 EST Start Date: 05/30/19 Status: OrderedDupixent Subcutaneous Infusion, Once, 0 Refills, Maintenance, 10/01/19 20:51:00 EDT Start Date: 10/01/19 Status: OrderedFlonase 50 mcg/inh nasal spray 1 sprays, Nares, Both, 2 times a day, # 16 Gm, 0 Refills, Maintenance, 11/16/19 9:13:00 EDT, [place], [facility]/pharmacy #0859, 1 sprays Nares, Both 2 times a day, 142, cm, 11/16/19 8:05:00 EDT, Height, 90.7, kg, 10/11/19 1:24:00 EDT, Dry Weight Start Date: 11/16/19 Status: Orderedfurosemide 20 mg oral tablet 60 mg, 3, tablet, By Mouth, 2 times a day, # 180 tablet, Refills 2, Tot. Refills 2, Maintenance, 11/04/19 13:31:00 EDT, Route to Pharmacy Electronically, [facility]/pharmacy #0859, 140, cm, 10/11/19 1:24:00 EDT, Height, 90.7, kg, 10/11/19 1:24:00 EDT, Dry We... Start Date: 11/04/19 Status: OrderedLatuda 20 mg oral tablet 1 tablet = 20 mg, By Mouth, Daily, # 30 tablet, 0 Refills, Maintenance, 08/25/19 4:35:00 EDT, Tablet Start Date: 08/25/19 Status: Orderedlevothyroxine 0.137 mg oral tablet 1 tablet, By Mouth, Daily, # 30 tablet, 5 Refills, Maintenance, 10/20/19 9:31:00 EDT, [facility]/pharmacy #0859, 140, cm, 10/11/19 1:24:00 EDT, Height, 90.7, kg, 10/11/19 1:24:00 EDT, Dry Weight Start Date: 10/20/19 Stop Date: 04/17/20 Status: Orderedmagnesium citrate 8.85% oral liquid 150 mL = 8.725 Gm, By Mouth, Once, # 300 mL, 0 Refills, Soft Stop, 04/28/19 17:14:00 EST, Liquid, [facility]/pharmacy #0315, 150 mL By Mouth Once, 142, cm, 04/28/19 9:05:00 EST, Height, 92.6, kg, 03/30/19 10:30:00 EST, Dry Weight Start Date: 04/28/19 Status: Orderedmagnesium oxide 400 mg oral tablet TAKE 1 TABLET BY MOUTH EVERY DAY Start Date: 08/25/19 Status: Orderedmeloxicam 7.5 mg oral tablet 1 tablet, By Mouth, Daily, # 30 tablet, 0 Refills, Maintenance, 10/27/19 13:05:00 EDT, [facility] ST[facility] 59558, 140, cm, 10/11/19 1:24:00 EDT, Height, 90.7, [...] EDT, Supply Start Date: 10/14/19 Status: Orderednystatin 184030 u/ml oral suspension 1 mL = 100,000 units, By Mouth, 4 times a day, # 30 mL, 0 Refills, Maintenance, 08/25/19 4:36:00 EDT, Suspension Start Date: 08/25/19 Status: Orderedondansetron 4 mg oral tablet 1 tablet = 4 mg, By Mouth, Every 8 hours, PRN as needed for nausea and vomiting, # 15 tablet, 0 Refills, Maintenance, 08/10/19 15:44:00 EDT, Tablet, [facility]/pharmacy #0859, 142, cm, 08/08/19 8:45:00 EDT, [...] 0 Refills, Maintenance, 10/14/19 14:35:00 EDT, Tablet, [facility]/pharmacy #0859, 140, cm, ... Start Date: 10/14/19 [...] 0 Refills, Maintenance, 10/11/19 13:42:00 EDT, Syrup, [facility]/pharmacy #0859, 5 mL By Mouth Every 6 [...] 08/25/19 4:35:00EDT, Tablet Start Date: 08/25/19 Status: OrderedSymbicort 160mcg/4.5mcg Inhaler 2, puffs, Inhalation, 2 times a day, # 1 each, Refills 5, Tot. Refills 5, Maintenance, 11/16/19 9:13:00 EDT, Aerosol, Route to Pharmacy Electronically, [id number], [facility]/pharmacy #0859, 142, cm, 11/16/19 8:05:00 EDT, Height, 90... Start Date: 11/16/19 Stop Date: 05/14/20 Status: OrderedtiZANidine 2 mg oral capsule TAKE [...]
--- OUTSIDE RECORDS SUMMARY | 2021-12-30 21:49 | XMS_ITS | Continuity of Care Document ---
:1970 Author Organization [facility] Address [address] [place] [phone]- Care Team Providers Name Role Phone Rama Rodriguez NP Primary Care Physician En[place] [id number] Date(s): 10/26/20 - 11/30/20 [facility] [address] [place] [address]- Attending Physician: Not on Staff, Attending MD Allergies, Adverse Reactions, Alerts Substance Reaction [...] Not Given Patient Refuses 1Result Comment: [05/03/2018] [id number] Comment: [05/03/2018] [id number] Note: pt stated she did not want to receive vaccine today, may want later Medications albuterol-ipratropium 3 mg-0.5 mg/3 ml inhalation solution 3 mL, Inhalation, 4 times a day, # 360 mL, 1 Refills, Maintenance, 12/13/19 8:19:00 EDT, Inhalation Solution, [facility], 3 mL Inhalation 4 times a day, 141, cm, 12/07/19 12:18:00 EDT, Height, 100.5, kg, 12/05/19 3:32:00 EDT, Dry Weight Start Date: 12/13/19 Status: OrderedbuPROPion 150 mg/24 hours (XL) oral tablet, extended release 1 tablet = 150 mg, By Mouth, Every 24 hours, # 90 tablet, 0 Refills, Maintenance, 11/17/19 4:25:00 EDT, ER Tablet Start Date: 11/17/19 Status: Orderedcetirizine 10 mg oral tablet 1 tablet, By Mouth, Daily, # 90 tablet, 1 Refills, Maintenance, 12/23/19 16:02:00 EDT, [facility]/pharmacy #0859, 142, [...] 1 Refills, Maintenance, 12/02/19 14:20:00 EDT, [facility]/pharmacy #0859, 1 tablet By Mouth [...] EDT, [facility] STORE 83591, 142, cm, 11/16/19 8:05:00 EDT, Height, 90.7, kg, 10/11/19 1:24:00 EDT, Dry Weight Start Date: 11/21/19 Status: OrderedDupixent 300 mg/2 mL subcutaneous solution Every 14 days, 0 Refills, Maintenance, 11/17/19 4:27:00 EDT Start Date: 11/17/19 Status: Orderedfluticasone 50 mcg/inh nasal spray 1 sprays, Nares, Both, 2 times a day, 0 Refills, Maintenance, 11/17/19 4:21:00 EDT, [place] Start Date: 11/17/19 Status: Orderedlamotrigine 25 mg [...] Refills, Maintenance, 01/30/20 14:58:00 EST, [facility], 143, cm, 01/14/20 22:55:00 EDT, Height, 101, kg, 01/14/20 22:55:00 EDT, Dry Weight Start Date: 01/30/20 Status: Orderedlidocaine 4% topical film 1 patch, Topically, Daily, # 30 patch, 0 Refills, Maintenance, 01/06/20 10:41:00 EDT, Film, [facility], 142, cm, 01/06/20 8:20:00 EDT, [...] tablet, 3 Refills, Acute, 04/10/20 10:44:00 EST, [facility] STORE 76088, 90, TAKE 1 TABLET BY MOUTH EVERY [...]
--- OUTSIDE RECORDS SUMMARY | 2021-12-30 21:49 | XMS_ITS | Continuity of Care Document ---
:1970 Author Organization [facility] Address [address] [place] [address]- Care Team Providers Name Role Phone Nasima Narayan DO Primary Care Physician Encounter [facility] Date(s): 05/31/20 - 06/01/[address] [address]- Encounter Diagnosis Headache (Final) - 05/31/20 Discharge Disposition: A-D/C Home Attending Physician: oCrrie Rodriguez MD Admitting Physician: Corrie Rodriguez MD Referring Physician: Not on Staff, Referring [...] Not Given Patient Refuses 1Result Comment: [05/03/2018] [id number] Comment: [05/03/2018] [id number] Note: pt stated she did not want to receive vaccine today, may want later Medications albuterol-ipratropium 3 mg-0.5 mg/3 ml inhalation solution 3 mL, Inhalation, 4 times a day, # 360 mL, 1 Refills, Maintenance, 12/13/19 8:19:00 EDT, Inhalation Solution, [facility], 3 mL Inhalation 4 [...] EDT, Route to Pharmacy Electronically, [facility], 142, cm, 01/06/20 8:20:00EDT, Height, 103, kg, 01/04/20 18:55:00 EDT, Dry... Start Date: 01/06/20 Status: Orderedcetirizine 10 mg oral tablet 1 tablet, By Mouth, Daily, # 90 tablet, 1 Refills, Maintenance, 12/23/19 16:02:00 EDT, [facility]/pharmacy #0859, 142, cm, 12/15/19 7:46:00 EDT, Height, [...] tablet, 1 Refills, Maintenance, 12/02/19 14:20:00 EDT, [facility]/pharmacy #0859, 1 tablet By Mouth Daily, 142, [...] capsule, 0 Refills, Maintenance, 11/21/19 12:43:00 EDT, [facility] STORE 02615, 142, cm, 11/16/19 8:05:00 EDT, Height, 90.7, kg, 10/11/19 1:24:00 EDT, Dry Weight Start Date: 11/21/19 Status: OrderedDupixent 300 mg/2 mL subcutaneous solution 0 Refills, Maintenance, 11/17/19 4:27:00 EDT Start Date: 11/17/19 Status: Orderedfluticasone 50 mcg/inh nasal spray 1 sprays, Nares, Both, 2 times a day, 0 Refills, Maintenance, 11/17/19 4:21:00 EDT, [place] Start Date: 11/17/19 Status: Orderedlamotrigine 25 mg [...] tablet, 0 Refills, Maintenance, 01/30/20 14:58:00 EST, [facility] STORE 98051, 143, cm, 01/14/20 22:55:00 EDT, Height, 101, kg, 01/14/20 22:55:00 EDT, Dry Weight Start Date: 01/30/20 Status: Orderedlidocaine 4% topical film 1 patch, Topically, Daily, # 30 patch, 0 Refills, Maintenance, 01/06/20 10:41:00 EDT, Film, [facility] 3, 142, cm, 01/06/20 8:20:00 EDT, Height, 103, kg, 01/04/20 18:55:00 EDT, Dry Weight Start Date: 01/06/20 Stop Date: 02/05/20 Status: Orderedmagnesium oxide 400 mg (240 mg elemental magnesium) oral tablet 1 tablet, By Mouth, Daily, # 90 tablet, 3 Refills, Acute, 04/10/20 10:44:00 EST, [facility] STORE 00387, 90, TAKE 1 TABLET BY MOUTH EVERY DAY, 143, cm, 03/27/20 7:23:00 EST, Height, 101, kg, 01/14/20 22:55:00EDT, Dry Weight Start Date: 04/10/20 Status: Orderedmeloxicam 7.5 mg oral tablet 1 tablet, By Mouth, Daily, # 30 tablet, 0 Refills, Maintenance, 11/23/19 18:18:00 EDT, [facility], 142, cm, 11/16/19 8:05:00 EDT, Height, 90.7, [...] Dry Weight Start Date: 04/11/20 Status: Orderednystatin 993713 u/ml oral suspension 1 mL = 100,000 units, By Mouth, 4 times a day, # 30 mL, 0 Refills, Maintenance, 11/17/19 4:28:00 EDT, Suspension Start Date: 11/17/19 Status: Orderedondansetron 4 mg oral tablet 1 tablet = 4 mg, By Mouth, Every 8 hours, PRN Nausea & Vomiting, # 10 tablet, 0 Refills, Maintenance, 12/19/19 13:39:00 EDT, Tablet, [facility]/pharmacy #0859, 142, cm, 12/15/19 7:46:00 EDT, Height, [...] 3 Refills, Maintenance, 01/10/20 7:53:00 EDT, Capsule, [facility]/pharmacy #0859, 142, cm, 01/08/20 22:31:00 EDT, Height, [...] to oldest [Reference 1 2 3 Range]: Oxygen Saturation [94-100 %] 96 % 97 % 98 % (05/31/20 10:46 PM) (05/31/20 6:29 PM) (05/31/20 5:52 PM) Pulse Rate [55-90 bpm] 78 bpm 85 bpm 78 bpm (05/31/20 10:46 PM) (05/31/20 6:29 PM) (05/31/20 5:52 PM) Blood Pressure [90-138/55-84 mm 125/83 mm Hg 119/73 mm Hg 122/79 mm Hg Hg] (05/31/20 10:46 PM) (05/31/20 6:29 PM) (05/31/20 5:52 PM) Respiratory Rate [16-30 br/min] 28 br/min 24 br/min 22 br/min (05/31/20 10:46 PM) (05/31/20 6:29 PM) (05/31/20 5:52 PM) Temperature [96.8-100.4 DegF] 99.1 DegF 98.9 DegF (05/31/20 5:52 PM) (05/31/20 4:19 PM) Mode of Delivery (Oxygen) Room air Room air Room a ir (05/31/20 6:29 PM) (05/31/20 5:52 PM) (05/31/20 4:19 P M) Blood pressure sites Arm, right Arm, right Arm, right (05/31/20 10:46 PM) (05/31/20 6:29 PM) (05/31/20 5:52 PM) Temperature Route Oral Oral (05/31/20 5:52 PM) (05/31/20 4:19 PM) Social History Social History Type Response Smoking Status Never (less than 100 in life time) entered on: 01/01/20 Sex
--- OUTSIDE RECORDS SUMMARY | 2021-12-30 21:49 | XMS_ITS | Continuity of Care Document ---
:1970 Author Organization [facility] Address [address] [place] [address]- Care Team Providers Name Role Phone Edie Bee MD Primary Care Physician [place] [facility] [place]): 06/21/21 - 07/21/21 [facility] [address] [place] [address]- [place] Allergies, Adverse Reactions, Alerts Substance Reaction [...] Not Given Patient Refuses 1Result Comment: [05/03/2018] [id number] Comment: [05/03/2018] [id number] Note: pt stated she did not want [...] 05/29/21 18:11:00 EST, Route to Pharmacy Electronically, [facility] [...] Refills, Maintenance, 11/21/19 12:43:00 EDT, [facility], 142, cm, 11/16/19 8:05:00 EDT, Height, 90.7, kg, 10/11/19 1:24:00 EDT, Dry Weight Start Date: 11/21/19 Status: OrderedDupixent 300 mg/2 mL subcutaneous solution Every 14 days, 0 Refills, Maintenance, 11/17/19 4:27:00 EDT Start Date: 11/17/19 Status: Orderedfluticasone 50 mcg/inh nasal spray 1 sprays, Nares, Both, 2 times a day, 0 Refills, Maintenance, 11/17/19 4:21:00 EDT, [place] Start Date: 11/17/19 Status: OrderedLatuda 40 mg oral tablet 1 tablet = 40 mg, By Mouth, Daily, # 30 tablet, 0 Refills, Maintenance, 11/17/19 4:22:00 EDT, Tablet Start Date: 11/17/19 Status: Orderedlevothyroxine 0.137 mg oral tablet 1 tablet, By Mouth, Daily, # 90 tablet, 0 Refills, Maintenance, 01/30/20 14:58:00 EST, [facility], 143, cm, 01/14/20 22:55:00 EDT, Height, 101, kg, 01/14/20 22:55:00 EDT, Dry Weight Start Date: 01/30/20 Status: Orderedmagnesium oxide 400 mg oral tablet 1 tablet, By Mouth, Daily, # 90 tablet, 3 Refills, [facility], 143, cm, 04/02/21 3:19:00 EST, Height, 96.2, [...] EVERY DAY, # 30 tablet, 3 Refills, [facility], 142, cm, 06/23/21 21:09:00 EDT, Height, 92.5, [...]
--- OUTSIDE RECORDS SUMMARY | 2021-12-30 21:49 | XMS_ITS | Continuity of Care Document ---
:1970 Author Organization [facility] Address [address] [place] [address]- Care Team Providers Name Role Phone Go Schwarz MD Primary Care Physician Encounter [facility] Date(s): 12/02/19 - 12/03/[address] [address]- [facility] Encounter Diagnosis Chest pain (Final) - 12/02/19 Discharge Disposition: A-D/C Home Attending Physician: Pravin Neves MD Admitting Physician: Pravin Neves MD Referring Physician: Not on Staff, Referring [...] Not Given Patient Refuses 1Result Comment: [05/03/2018] [id number] Comment: [05/03/2018] [id number] Note: pt stated she did not want [...] Inhalation, 4 times a day, # 360 each, 0 Refills, Maintenance, 11/17/19 4:24:00 EDT, [place] Start Date: 11/17/19 Status: OrderedBreo Ellipta 200 mcg-25 mcg/inh inhalation [...] tablet, 1 Refills, Maintenance, 11/28/19 12:52:00 EDT, [id number], 142, cm, 11/23/19 23:52:00 EDT, Height, 90.7, [...] 1 Refills, Maintenance, 12/02/19 14:20:00 EDT, [facility]/pharmacy #[id number], 1 tablet By Mouth Daily, 142, cm, 11/23/19 23:52:00 EDT, Height, 90.7, kg, 10/11/19 1:24:00 EDT, Dry Weight Start Date: 12/02/19 Status: Ordereddivalproex sodium 250 mg oral tablet, extended release TAKE 3 TABLETS BY MOUTH AT BEDTIME Start Date: 11/17/19 Status: Ordereddoxycycline hyclate 100 mg oral capsule 1 capsule = 100 mg, By Mouth, 2 times a day, # 20 capsule, 0 Refills, Maintenance, 11/17/19 4:27:00 EDT, Capsule Start Date: 11/17/19 Stop Date: 11/27/19 Status: Orderedduloxetine 60 mg oral enteric coated capsule 1 capsule, By Mouth, Daily, # 30 capsule, 0 Refills, Maintenance, 11/21/19 12:43:00 EDT, [facility] ST[facility], 142, cm, 11/16/19 8:05:00 EDT, Height, 90.7, kg, 10/11/19 1:24:00 EDT, Dry Weight Start Date: 11/21/19 Status: OrderedDupixent 300 mg/2 mL subcutaneous solution 0 Refills, Maintenance, 11/17/19 4:27:00 EDT Start Date: 11/17/19 Status: Orderedfluticasone 50 mcg/inh nasal spray 1 sprays, Nares, Both, 2 times a day, 0 Refills, Maintenance, 11/17/19 4:21:00 EDT, [place] Start Date: 11/17/19 Status: Orderedfurosemide 20 mg oral tablet TAKE 3 TABLETS BY MOUTH TWICE A DAY Start Date: 11/17/19 Status: Orderedlamotrigine 25 mg [...] tablet, 0 Refills, Maintenance, 11/23/19 18:18:00 EDT, [facility] 49780, 142, cm, 11/16/19 8:05:00 EDT, Height, 90.7, kg, 10/11/19 1:24:00 EDT, Dry Weight Start Date: 11/23/19 Status: Orderedmetolazone 2.5 mg oral tablet 2.5 mg, 1, tablet, By Mouth, Daily, # 30 tablet, Refills 0, Tot. Refills 0, Maintenance, 11/30/19 13:53:00 EDT, Route to Pharmacy Electronically, [facility]/pharmacy #[id number], 142, cm, 11/23/19 23:52:00 EDT, Height, 90.7, kg, 10/11/19 1:24:00 EDT, Dry Weight Start Date: 11/30/19 Status: Orderedmontelukast 10 mg oral tablet 10 mg, 1, tablet, By Mouth, Daily in PM, # 30 tablet, Refills 0, Maintenance, 11/17/19 4:22:00 EDT Start Date: 11/17/19 Status: Orderednystatin 132915 u/ml oral suspension 1 mL = 100,000 [...] 11/17/19 4:22:00 EDT Start Date: 11/17/19 Status: OrderedpredniSONE 5 mg oral tablet 1 tablet = 5 mg, By Mouth, Daily, # 10 tablet, 0 Refills, Maintenance, 11/17/19 4:27:00 EDT, Tablet Start Date: 11/17/19 Stop Date: 11/27/19 Status: Orderedpregabalin 75 mg oral capsule 1 [...] 11/18/19 14:38:00 EDT Start Date: 11/18/19 Status: OrderedTessalon Perles 100 mg oral capsule 1 capsule = 100 mg, By Mouth, 3 times a day, PRN as needed for cough, for 14 days, # 42 capsule, 0 Refills, Acute 12/09/19 12:04:00 EDT, 11/25/19 12:04:00 EDT, Capsule, [facility]/pharmacy #[id number], 142, cm, 11/23/19 23:52:00 EDT, Height, 90.7, kg, 10/11/19 1:2... Start Date: 11/25/19 Stop Date: 12/09/19 Status: OrderedtraZODone 150 mg oral tablet 1 [...] depression(Confirmed) Active Mood disorder(Confirmed) Active Nausea(Confirmed) Active TRITSAN on CPAP(Confirmed) Active Bilateral leg pain(Confirmed) Active Paresthesias(Confirmed) Active Pericardial effusion(Confirmed) Active Pleural effusion(Confirmed) Active PTSD (post-traumatic stress Active disorder)(Confirmed) Leg swelling(Confirmed) Active Ulcerative colitis(Confirmed) Active Results Radiology Reports Exam Date Time Procedure Performing Provider Status 12/02/19 7:52 PM Chest Portable Susan Basilio; Auth (Verified ) Notes:(Chest Portable) Reason For Exam: Shortness of BreathRESULT: Chest Portable Chest Portable AP upright at 1913 hours Hx of Present Illness: pt presents to ED from home with c o intermittent SOB and chest pain x 3 weeks. States recent weight gain of approx. 9 lbs; Reason: Shortness of Breath; Clinical Question(s): CHF COMPARISON: 11/16/2019 and 10/10/2019 FINDINGS: LINES AND TUBES: None. LUNGS AND PLEURA: Low lung volume with crowding of bronchovascular markings. Lungs otherwise clear No pleural effusion. No pneumothorax. HEART, MEDIASTINUM AND REY: Heart is normal in size. Normal mediastinal and hilar contour. BONES AND SOFT TISSUES: No acute abnormality. IMPRESSION: No acute abnormality. WSN: [id number] Ordering Physician: David Mike Dictated By: Jonny Jordan DO Dictated Date/Time: 12/02/19 7:55 pm Reviewed By: Jonny Jordan DO Signed By: Jonny Jordan DO Signed Date/Time: 12/02/19 7:55 pm Transcribed By: ANAYELI Transcribed Date/Time: 12/02/19 7:54 pm Vital Signs Most recent to oldest [Reference 1 2 3 Range]: Oxygen Saturation [94-100 %] 96 % 95 % 100 % (12/02/19 10:55 PM) (12/02/19 8:01 PM) (12/02/19 5:15 PM) Pulse Rate [55-90 bpm] 98 bpm 96 bpm 100 bpm *H* *H* *H* (12/02/19 10:55 PM) (12/02/19 8:01 PM) (12/02/19 5:15 PM) Blood Pressure [90-138/55-84 mm 122/91 mm Hg 134/86 mm Hg 114/79 mm Hg Hg] (12/02/19 10:55 PM) (12/02/19 8:01 PM) (12/02/19 5:15 PM) Respiratory Rate [16-30 br/min] 18 br/min 18 br/min 20 br/min (12/02/19 10:55 PM) (12/02/19 8:01 PM) (12/02/19 5:15 PM) Temperature [96.8-100.4 DegF] 98.1 DegF (12/02/19 6:32 PM) Liters per Minute 2 L/min 2 L/min (12/02/19 5:15 PM) (12/02/19 4:36 PM) Mode of Delivery (Oxygen) room air room air Nasal cannula (12/02/19 10:55 PM) (12/02/19 8:01 PM) (12/02/19 5:15 PM) Blood pressure sites Arm, left Arm, right (12/02/19 8:01 PM) (12/02/19 5:15 PM) Temperature Route Oral (12/02/19 6:32 PM) Social History Social History Type Response Smoking Status Never smoker; Tobacco user i n household: No entered on: 10/25/14 Sex
--- OUTSIDE RECORDS SUMMARY | 2021-12-30 21:49 | XMS_ITS | Continuity of Care Document ---
:1970 Author Organization [facility] Address [address] [place] [id number]- Care Team Providers Name Role Phone Nasima Narayan DO Primary Care Physician Encounter [facility] Date(s): 09/05/20 - 10/05/20 [facility] [address] [address] Attending Physician: Vinny Cornejo Admitting Physician: AdmtrVinny Referring Physician: Admtr ArAdalid Allergies, Adverse Reactions, Alerts Substance Reaction Severity Status sulfADIAZINE Rash Active penicillins Rash Active Diamox1 C/O: itching Persistent Moderate Active droperidol Anaphylactic reaction Persistent Severe Active [...] Not Given Patient Refuses 1Result Comment: [05/03/2018] [id number] Comment: [05/03/2018] [id number] Note: pt stated she did not want to receive vaccine today, may want later Medications albuterol-ipratropium 3 mg-0.5 mg/3 ml inhalation solution 3 mL, Inhalation, 4 times a day, # 360 mL, 1 Refills, Maintenance, 12/13/19 8:19:00 EDT, Inhalation Solution, [facility], 3 mL Inhalation 4 times a day, 141, cm, 12/07/19 12:18:00 EDT, Height, 100.5, kg, 12/05/19 3:32:00 EDT, Dry Weight Start Date: 12/13/19 Status: OrderedApriso 0.375 g oral capsule, extended release 4 capsule = 1.5 Gm, By Mouth, Daily in AM, # 120 capsule, 4 Refills, Maintenance, 09/07/20 8:50:00 EDT, CR Capsule, [facility]/pharmacy #[id number], Partial fill upon patient [...] capsule, 3 Refills, Maintenance, 09/28/20 7:41:00 EDT, [facility]/pharmacy #[id number], 143, cm, 09/20/20 19:45:00 EDT, Height, 106.6, kg, 09/20/20 19:45:00 EDT, Dry Weight Start Date: 09/28/20 Stop Date: 01/26/21 Status: Orderedduloxetine 60 mg oral enteric coated capsule 1 capsule, By Mouth, Daily, # 30 capsule, 0 Refills, Maintenance, 11/21/19 12:43:00 EDT, [facility], 142, cm, 11/16/19 8:05:00 EDT, Height, 90.7, kg, 10/11/19 1:24:00 EDT, Dry Weight Start Date: 11/21/19 Status: OrderedDupixent 300 mg/2 mL subcutaneous solution 0 Refills, Maintenance, 11/17/19 4:27:00 EDT Start Date: 11/17/19 Status: Orderedfluticasone 50 mcg/inh nasal spray 1 sprays, Nares, Both, 2 times a day, 0 Refills, Maintenance, 11/17/19 4:21:00 EDT, [place] Start Date: 11/17/19 Status: Orderedlamotrigine 25 mg oral tablet 25 mg, 1, tablet, By Mouth, 2 times a day, # 60 tablet, Refills 0, Maintenance, 11/17/19 4:23:00 EDT Start Date: 11/17/19 Status: OrderedLasix 20 mg oral tablet 20 mg, 1, tablet, By Mouth, Daily, # 7 tablet, Refills 0, Tot. Refills 0, Maintenance, 07/15/20 22:03:00 EDT, Route to Pharmacy Electronically, [facility]/pharmacy #[id number], Partial fill upon patient [...] tablet, 0 Refills, Maintenance, 01/30/20 14:58:00 EST, [facility] STORE 94105, 143, cm, 01/14/20 22:55:00 EDT, Height, 101, kg, 01/14/20 22:55:00 EDT, Dry Weight Start Date: 01/30/20 Status: Orderedlidocaine 4% topical film 1 patch, Topically, Daily, # 30 patch, 0 Refills, Maintenance, 01/06/20 10:41:00 EDT, Film, [facility] 3, 142, cm, 01/06/20 8:20:00 EDT, Height, 103, kg, 01/04/20 18:55:00 EDT, Dry Weight Start Date: 01/06/20 Stop Date: 02/05/20 Status: Orderedmagnesium oxide 400 mg (240 mg elemental magnesium) oral tablet 1 tablet, By Mouth, Daily, # 90 tablet, 3 Refills, Acute, 04/10/20 10:44:00 EST, [facility] STORE [address]22, 90, TAKE 1 TABLET BY MOUTH EVERY [...] 0 Refills, Maintenance, 12/19/19 13:39:00 EDT, Tablet, [facility]/pharmacy #[id number], 142, cm, 12/15/19 7:46:00 [...] 3 Refills, Maintenance, 01/10/20 7:53:00 EDT, Capsule, [facility]/pharmacy #[id number], 142, cm, 01/08/20 22:31:00 [...]
--- OUTSIDE RECORDS SUMMARY | 2021-12-30 21:49 | XMS_ITS | Continuity of Care Document ---
:1970 Author Organization [facility] Address [address] [address]- Care Team Providers Name Role Phone Cristal OROZCO, Edie Segovia Primary Care Physician Encounter [facility] [place] Date(s): 06/13/21 - 10/11/21 [facility] [address] [address]- Attending Physician: Renny Sykes MD Admitting Physician: Renny Sykes MD Referring Physician: David Rodriguez MD Allergies, Adverse Reactions, Alerts Substance Reaction Severity Status sulfADIAZINE Rash Active droperidol Anaphylactic reaction Persistent Severe Active penicillins Rash Active Toradol1, 2 Active Keflex Rash Active Glutens rash Active 1abd upset with [id number] upset Immunizations Given and Recorded Vaccine Date Status Refusal Reason influenza virus vaccine, inactivated 02/06/21 Recorded influenza virus vaccine, inactivated 03/31/19 Given influenza virus vaccine, inactivated 12/04/17 Recorded influenza virus vaccine, inactivated 01/05/15 Recorded influenza virus vaccine, inactivated 01/11/14 Recorded SARS-CoV-2 (COVID-19) mRNA-1273 vaccine 02/06/21 Recorded SARS-CoV-2 (COVID-19) mRNA-1273 vaccine 06/29/20 Recorded SARS-CoV-2 (COVID-19) mRNA-1273 vaccine 05/30/20 Recorded tetanus/diphtheria/pertussis, acel(Tdap) 08/16/20 Given tetanus/diphtheria/pertussis, acel(Tdap)1 02/19/13 Record ed pneumococcal 23-valent vaccine2 08/28/15 Recorded Not Given Vaccine Date Status Refusal Reason pneumococcal 23-valent vaccine3 01/04/18 Not Given Patient Refuses 1Result Comment: [05/03/2018] [id number] Comment: [05/03/2018] [id number] Note: pt stated she did not want to receive vaccine today, may want later Medications buprenorphine 20 mcg/hr transdermal film, extended release 0 Refills, Maintenance, 01/10/21 8:38:00 EDT, Partial fill upon patient request if the prescription is for a schedule II opioid drug. Start Date: 01/10/21 Status: Orderedcetirizine 10 mg oral tablet 1 tablet, By Mouth, Daily, # 90 tablet, 1 Refills, Maintenance, 12/23/19 16:02:00 EDT, [facility]/pharmacy #[id number], 142, cm, 12/15/19 7:46:00 EDT, [...] 05/29/21 18:11:00 EST, Route to Pharmacy Electronically, [facility]/pharmacy #[id number], Partial fill upon patient request if the prescriptio... Start Date: 05/29/21 Status: OrderedDaily-Madi with Iron oral tablet 1 tablet, By Mouth, Daily, # 90 tablet, 1 Refills, Maintenance, 12/02/19 14:20:00 EDT, [facility]/pharmacy #[id number], 1 tablet By Mouth Daily, [...] capsule, 3 Refills, Maintenance, 09/28/20 7:41:00 EDT, [facility]/pharmacy #[id number], 143, cm, 09/20/20 19:45:00 EDT, Height, 106.6, kg, 09/20/20 19:45:00 EDT, Dry Weight Start Date: 09/28/20 Stop Date: 01/26/21 Status: Orderedduloxetine 60 mg oral enteric coated capsule 1 capsule, By Mouth, Daily, # 30 capsule, 0 Refills, Maintenance, 11/21/19 12:43:00 EDT, [facility], 142, cm, 11/16/19 8:05:00 EDT, Height, 90.7, kg, 10/11/19 1:24:00 EDT, Dry Weight Start Date: 11/21/19 Status: OrderedDupixent 300 mg/2 mL subcutaneous solution Every 14 days, 0 Refills, Maintenance, 11/17/19 4:27:00 EDT Start Date: 11/17/19 Status: Orderedfluticasone 50 mcg/inh nasal spray 1 sprays, Nares, Both, 2 times a day, 0 Refills, Maintenance, 11/17/19 4:21:00 EDT, [place] Start Date: 11/17/19 Status: OrderedImodium A-D 2 mg oral tablet 2 mg, 1, tablet, By Mouth, Every 4 hours, PRN, # 10 tablet, Refills 0, Tot. Refills 0, Maintenance, for loose stool, 07/27/21 19:52:00 EDT, Route to Pharmacy Electronically, [facility]/pharmacy #[id number], Partialfill upon patient request if the prescription is... Start Date: 07/27/21 Status: Orderedindomethacin 25 mg oral capsule 1 capsule = 25 mg, By Mouth, 3 times a day, PRN for arthritis, with food or milk, # 21 capsule, 0 Refills, Maintenance, 09/03/21 11:42:00 EDT, Capsule, [facility], Partial fill upon patient request if the prescription is for a schedul... Start Date: 09/03/21 Stop Date: 09/10/21 Status: OrderedLatuda 40 mg oral tablet 1 tablet = 40 mg, By Mouth, Daily, # 30 tablet, 0 Refills, Maintenance, 11/17/19 4:22:00 EDT, Tablet Start Date: 11/17/19 Status: Orderedlevothyroxine 0.137 mg oral tablet 1 tablet, By Mouth, Daily, # 90 tablet, 0 Refills, Maintenance, 01/30/20 14:58:00 EST, [facility], 143, cm, 01/14/20 22:55:00 EDT, Height, 101, kg, 01/14/20 22:55:00 EDT, Dry Weight Start Date: 01/30/20 Status: Orderedlidocaine 5% topical film 1 patch, Topically, Daily, PRN Pain , Mild, remove after 12 hours, # 13 each, 0 Refills, Maintenance, 08/22/21 22:17:00 EDT, [facility], [id number], Partial fill upon patient request if the prescription is for a schedule II opioid drug., 1 patch Top... Start Date: 08/22/21 Status: Orderedmagnesium oxide 400 mg oral tablet 1 tablet, By Mouth, Daily, # 90 tablet, 3 Refills, [facility], 143, cm, 04/02/21 3:19:00 EST, Height, 96.2, [...] 0 Refills, Maintenance, 04/01/21 23:03:00EST, CR Capsule, [facility]/pharmacy #[id number], Partial fill upon patient request if the prescription is for a schedule II opioid drug., [id number], 04/01/21 22:56:... Start Date: 04/01/21 Stop Date: 04/08/21 Status: Orderedprazosin 5 mg oral capsule 5 mg, 1, capsule, By Mouth, Daily at bedtime, Refills 0, Maintenance, 04/11/21 11:07:00 EST, Partialfill upon patient request if the prescription is for a schedule II opioid drug. Start Date: 04/11/21 Status: OrderedpredniSONE 10 mg oral tablet 5 tablet = 50 mg, By Mouth, Daily, for 10 days, 5 tablets daily for 2 days,4 daily for 2 days,3 daily for 2 days,2 daily for 2 days,1 daily for2 days, # 30 tablet, 0 Refills, Acute 10/17/21 15:12:00 EDT, 10/07/21 15:12:00 EDT, Tablet, [facility] Start Date: 10/07/21 Stop Date: 10/17/21 Status: OrderedtraZODone 150 mg oral tablet 1 tablet = 150 mg, By Mouth, Daily at bedtime, # 30 tablet, 0 Refills, Maintenance, 11/17/19 4:23:00EDT, Tablet Start Date: 11/17/19 Status: OrderedTrelegy Ellipta inhalation powder 1 puffs, Inhalation, Daily, at the same time every day, # 1 each, 5 Refills, Maintenance, 05/15/21 14:16:00 EST, Powder, [facility]/pharmacy #[id number], Partial fill upon patient request if the prescription is fora schedule II opioid drug., [id number], 05/15/21 14:... Start Date: 05/15/21 Stop Date: 11/11/21 Status: OrderedTrulance 3 mg oral tablet See Instructions, TAKE 1 TABLET BY MOUTH EVERY DAY, # 30 tablet, 3 Refills, 08/28/21 9:49:00 EDT, [id number], 142, cm, 08/24/21 1:35:00 EDT, Height, 90.4, kg, 08/24/21 1:35:00 EDT, Dry Weight Start Date: 08/28/21 Status: OrderedZofran 4 mg oral tablet 1 [...]
--- OUTSIDE RECORDS SUMMARY | 2021-12-30 21:49 | XMS_ITS | Continuity of Care Document ---
:1970 Author Organization [facility] Address [address] [place] [id number]- Care Team Providers Name Role Phone Go Schwarz MD Primary Care Physician Encounter [facility] Date(s): 09/26/19 - 10/26/[address] [address]- [facility] [phone] Allergies, Adverse Reactions, Alerts Substance Reaction Severity [...] Not Given Patient Refuses 1Result Comment: [05/03/2018] [id number] Comment: [05/03/2018] [id number] Note: pt stated she did not want [...] Refills, Soft Stop, 10/11/19 13:41:00 EDT, Tablet, [facility]/pharmacy #0859, 140, cm, 10/11/19 1:24:00 EDT, Height, [...] 0 Refills, Maintenance, 10/11/19 18:17:00 EDT, Tablet, [facility]/pharmacy #0859, 140, cm, 10/11/19 1:24:00 EDT, Height, [...] DOSE IF NEEDED Start Date: 08/25/19 Status: Orderedcodeine-guaifenesin 7.5 mg-225 mg/5 mL oral liquid 5 mL, By Mouth, Every 6 hours, PRN for cough, for 7 days, # 120 mL, 0 Refills, Acute 10/27/19 12:41:00 EDT, 10/20/19 12:41:00 EDT, Liquid, [facility]/pharmacy #0859, 5 mL By Mouth Every 6 hours,x7 days,PRN:for cough, 140, cm, 10/11/19 1:24:00 EDT, Height, 90... Start Date: 10/20/19 Stop Date: 10/27/19 Status: OrderedD 1000 IU oral tablet TAKE 1 TABLET BY MOUTH EVERY DAY Start Date: 08/25/19 Status: Ordereddiclofenac 3% topical gel 1 application, Topically, 2 times a day, # 50 Gm, 0 Refills, Maintenance, 09/09/19 19:51:00 EDT, Gel, [facility]/pharmacy #0859, 1 application Topically 2 times a [...] 10/24/19 8:56:00 EDT, Route to Pharmacy Electronically, [facility], 140, cm, 10/11/19 1:24:00 EDT, Height, 90.7, kg, 10/11/19 1:24:00 EDT, Dry Weight Start Date: 10/24/19 Status: OrderedLatuda 20 mg oral tablet 1 tablet = 20 mg, By Mouth, Daily, # 30 tablet, 0 Refills, Maintenance, 08/25/19 4:35:00 EDT, Tablet Start Date: 08/25/19 Status: Orderedlevothyroxine 0.137 mg oral tablet 1 tablet, By Mouth, Daily, # 30 tablet, 5 Refills, Maintenance, 10/20/19 9:31:00 EDT, [facility]/pharmacy #0859, 140, cm, 10/11/19 1:24:00 EDT, Height, 90.7, kg, 10/11/19 1:24:00 EDT, Dry Weight Start Date: 10/20/19 Stop Date: 04/17/20 Status: Orderedmagnesium citrate 8.85% oral liquid 150 mL = 8.725 Gm, By Mouth, Once, # 300 mL, 0 Refills, Soft Stop, 04/28/19 17:14:00 EST, Liquid, [facility]/pharmacy #0315, 150 mL By Mouth Once, 142, cm, 04/28/19 9:05:00 EST, Height, 92.6, kg, 03/30/19 10:30:00 EST, Dry Weight Start Date: 04/28/19 Status: Orderedmagnesium oxide 400 mg oral tablet TAKE 1 TABLET BY MOUTH EVERY DAY Start Date: 08/25/19 Status: Orderedmeloxicam 7.5 mg oral tablet 1 tablet, By Mouth, Daily, # 30 tablet, 0 Refills, Maintenance, 10/19/19 18:16:00 EDT, [facility] [address], 140, cm, 10/11/19 1:24:00 EDT, Height, 90.7, kg, 10/11/19 1:24:00 EDT, Dry Weight Start Date: 10/19/19 Status: Orderedmontelukast 10 mg oral tablet 10 mg, 1, tablet, By Mouth, Daily, Refills 0, Maintenance, 08/25/19 4:35:00 EDT Start Date: 08/25/19 Status: OrderedNebulizer/Compressor See Instructions, # 1 each, Refills 0, Tot. Refills 0, Maintenance, For use with updraft treatments using ipratropium-albuterol, 10/14/19 15:01:00 EDT, Supply Start Date: 10/14/19 Status: Orderednystatin 432939 u/ml oral suspension 1 mL = 100,000 units, By Mouth, 4 times a day, # 30 mL, 0 Refills, Maintenance, 08/25/19 4:36:00 EDT, Suspension Start Date: 08/25/19 Status: Orderedondansetron 4 mg oral tablet 1 tablet = 4 mg, By Mouth, Every 8 hours, PRN as needed for nausea and vomiting, # 15 tablet, 0 Refills, Maintenance, 08/10/19 15:44:00 EDT, Tablet, [facility]/pharmacy #0859, 142, cm, 08/08/19 8:45:00 EDT, Height, [...] 0 Refills, Maintenance, 10/14/19 14:35:00 EDT, Tablet, [facility]/pharmacy #0859, 140, cm, 10/10/... Start Date: 10/14/19 Status: Orderedpregabalin 75 mg [...] 0 Refills, Maintenance, 10/11/19 13:42:00 EDT, Syrup, [facility]/pharmacy #0859, 5 mL By Mouth Every 6 [...] 0 Refills, Maintenance, 10/10/19 22:21:00 EDT, Aerosol, [facility]/pharmacy #0859, 142, cm, 10/10/19 21:00:00 EDT, Height, [...]
--- OUTSIDE RECORDS SUMMARY | 2021-12-30 21:49 | XMS_ITS | Continuity of Care Document ---
:1970 Author Organization [facility] Address [address] [place] [address]- Care Team Providers Name Role Phone Nasima Narayan DO Primary Care Physician Encounter [facility] Date(s): 07/07/20 - 07/07/[address] [address]- Encounter Diagnosis Mechanical back pain (Final) - 07/07/20 Neck pain (Final) - 07/07/20 Discharge Disposition: A-D/C Home Attending Physician: Brianna Quinones MD Admitting Physician: Brianna Quinones MD Referring Physician: Not on Staff, Referring [...] Not Given Patient Refuses 1Result Comment: [05/03/2018] [id number] Comment: [05/03/2018] [id number] Note: pt stated she did not want to receive vaccine today, may want later Medications albuterol-ipratropium 3 mg-0.5 mg/3 ml inhalation solution 3 mL, Inhalation, 4 times a day, # 360 mL, 1 Refills, Maintenance, 12/13/19 8:19:00 EDT, Inhalation Solution, [facility], 3 mL Inhalation 4 times a day, 141, cm, 12/07/19 12:18:00 EDT, Height, 100.5, kg, 12/05/19 3:32:00 EDT, Dry Weight Start Date: 12/13/19 Status: OrderedAzithromycin 5 Day Dose Pack 250 mg oral tablet 1 pack/packet, By Mouth, Once, # 6 tablet, 0 Refills, Soft Stop, 06/27/20 15:07:00 EDT, Tablet, [facility]/pharmacy #[id number], Partial fill upon patient request [...] 01/06/20 10:18:00 EDT, Route to Pharmacy Electronically, [facility], 142, cm, 01/06/20 8:20:00EDT, Height, 103, kg, 01/04/20 18:55:00 EDT, Dry... Start Date: 01/06/20 Status: Orderedcetirizine 10 mg oral tablet 1 tablet, By Mouth, Daily, # 90 tablet, 1 Refills, Maintenance, 12/23/19 16:02:00 EDT, [facility]/pharmacy #[id number], 142, cm, 12/15/19 7:46:00 EDT, [...] 1 Refills, Maintenance, 12/02/19 14:20:00 EDT, [facility]/pharmacy #0859, 1 tablet By Mouth Daily, [...] 3 Refills, Maintenance, 06/30/20 12:45:00 EDT, [facility]/pharmacy #0859, 142, cm, 06/27/20 14:47:00 EDT, Height, 100, kg, 06/18/20 15:45:00 EDT, Dry Weight Start Date: 06/30/20 Stop Date: 10/28/20 Status: Orderedduloxetine 60 mg oral enteric coated capsule 1 capsule, By Mouth, Daily, # 30 capsule, 0 Refills, Maintenance, 11/21/19 12:43:00 EDT, [facility] STORE [id number], 142, cm, 11/16/19 8:05:00 EDT, Height, 90.7, kg, 10/11/19 1:24:00 EDT, Dry Weight Start Date: 11/21/19 Status: OrderedDupixent 300 mg/2 mL subcutaneous solution 0 Refills, Maintenance, 11/17/19 4:27:00 EDT Start Date: 11/17/19 Status: Orderedfluticasone 50 mcg/inh nasal spray 1 sprays, Nares, Both, 2 times a day, 0 Refills, Maintenance, 11/17/19 4:21:00 EDT, [place] Start Date: 11/17/19 Status: Orderedlamotrigine 25 mg [...] tablet, 0 Refills, Maintenance, 01/30/20 14:58:00 EST, [facility], 143, cm, 01/14/20 22:55:00 EDT, Height, 101, kg, 01/14/20 22:55:00 EDT, Dry Weight Start Date: 01/30/20 Status: Orderedlidocaine 4% topical film 1 patch, Topically, Daily, # 30 patch, 0 Refills, Maintenance, 01/06/20 10:41:00 EDT, Film, [facility] 3, 142, cm, 01/06/20 8:20:00 EDT, Height, 103, kg, 01/04/20 18:55:00 EDT, Dry Weight Start Date: 01/06/20 Stop Date: 02/05/20 Status: Orderedmagnesium oxide 400 mg (240 mg elemental magnesium) oral tablet 1 tablet, By Mouth, Daily, # 90 tablet, 3 Refills, Acute, 04/10/20 10:44:00 EST, [facility]ORE [address]121, 90, TAKE 1 TABLET BY MOUTH EVERY DAY, 143, cm, 03/27/20 7:23:00 EST, Height, 101, kg, 01/14/20 22:55:00EDT, Dry Weight Start Date: 04/10/20 Status: Orderedmeloxicam 7.5 mg oral tablet 1 tablet, By Mouth, Daily, # 30 tablet, 0 Refills, Maintenance, 11/23/19 18:18:00 EDT, [facility], 142, cm, 11/16/19 8:05:00 EDT, Height, 90.7, [...] Refills, Maintenance, 12/19/19 13:39:00 EDT, Tablet, [facility]/pharmacy #0859, 142, cm, 12/15/19 7:46:00 EDT, [...] Refills, Maintenance, 01/10/20 7:53:00 EDT, Capsule, [facility]/pharmacy #0859, 142, cm, 01/08/20 22:31:00 EDT, [...] 0 Refills,Maintenance, 06/08/20 22:23:00 EST, Tablet, [facility]/pharmacy #[id number], Partial fill upon patient request [...] Height 142 cm 142 cm 142 cm (07/07/20 3:02 PM) (07/07/20 2:33 PM) (07/07/20 12: 05 PM) Weight 100 kg 100 kg 100 kg (07/07/20 3:02 PM) (07/07/20 2:33 PM) (07/07/20 12: 05 PM) Oxygen Saturation [94-100 %] 97 % 98 % 96 % (07/07/20 3:02 PM) (07/07/20 2:33 PM) (07/07/20 12: 05 PM) Pulse Rate [55-90 bpm] 76 bpm 81 bpm 84 bpm (07/07/20 3:02 PM) (07/07/20 2:33 PM) (07/07/20 12: 05 PM) Body Mass Index [18.5-24.99] 49.59 49.59 49. 59 *>HHI* *>HHI* *>HHI* (07/07/20 3:02 PM) (07/07/20 2:33 PM) (07/07/20 12: 05 PM) Blood Pressure [90-138/55-84 119/76 mm Hg 111/57 mm Hg 115 /71 mm Hg mm Hg] (07/07/20 3:02 PM) (07/07/20 2:33 PM) (07/07/20 12: 05 PM) Respiratory Rate [16-30 20 br/min 21 br/min 20 br/mi n br/min] (07/07/20 3:02 PM) (07/07/20 2:33 PM) (07/07/20 12: 05 PM) Temperature [96.8-100.4 DegF] 98.1 DegF (07/07/20 9:11 AM) Mode of Delivery (Oxygen) Room air Room air Room a ir (07/07/20 3:02 PM) (07/07/20 2:33 PM) (07/07/20 11: 42 AM) Blood pressure sites Arm, left Arm, left Arm, left (07/07/20 3:02 PM) (07/07/20 2:33 PM) (07/07/20 12: 05 PM) Temperature Route Oral (07/07/20 9:11 AM) Dry Weight 100 kg 100 kg 100 kg (07/07/20 3:02 PM) (07/07/20 2:33 PM) (07/07/20 12: 05 PM) Social History Social History Type Response Smoking Status Never (less than 100 in life time) entered on: 01/01/20 Sex
--- OUTSIDE RECORDS SUMMARY | 2021-12-30 21:49 | XMS_ITS | Continuity of Care Document ---
:1970 Author Organization [facility] Address [address] [place] [id number]- Care Team Providers Name Role Phone Go Schwarz MD Primary Care Physician Encounter [facility] Date(s): 08/01/19 - 08/03/[address] [address]- [facility] Discharge Disposition: Transfer to [facility] Attending Physician: Ivan Chapa DO Admitting Physician: Ivan Chapa DO Referring Physician: Not on Staff, Referring [...] Not Given Patient Refuses 1Result Comment: [05/03/2018] [id number] Comment: [05/03/2018] [id number] Note: pt stated she did not want [...] 11:17:00 EDT, Tablet Start Date: 12/27/18 Status: OrderedDupixent Subcutaneous Infusion, Once, 0 Refills, Maintenance, 05/30/19 15:33:00 EST Start Date: 05/30/19 Status: Orderedmagnesium citrate 8.85% oral liquid 150 mL = 8.725 Gm, By Mouth, Once, # 300 mL, 0 Refills, Soft Stop, 04/28/19 17:14:00 EST, Liquid, [facility]/pharmacy #[id number], 150 mL By Mouth Once, 142, cm, 04/28/19 9:05:00 EST, Height, 92.6, kg, 03/30/19 10:30:00 EST, Dry Weight Start Date: 04/28/19 Status: Orderedmeloxicam 7.5 mg oral tablet 1 tablet = 7.5 mg, By Mouth, Daily, # 30 tablet, 0 Refills, Maintenance, 07/27/19 17:19:00 EDT, Tablet, [facility]/pharmacy #[id number], 138, cm, 07/25/19 10:31:00 EDT, Height, 90.9, kg, 06/21/19 14:06:00 EDT, Dry Weight Start Date: 07/27/19 Status: Orderedprazosin 5 mg oral capsule 5 mg, By Mouth, Daily at bedtime, Refills 0, Maintenance, 10/04/18 11:36:58 EDT Start Date: 10/04/18 Status: OrderedProAir HFA 90 mcg/inh inhalation aerosol with adapter 180 mcg, 2, puffs, Inhalation, Every 4 hours, PRN, Refills 0, Maintenance, 10/04/18 11:33:33 EDT, Inhaler Start Date: 10/04/18 Status: OrderedtraZODone 300 mg oral tablet By [...] Exam Date Time Procedure Performing Provider Status 08/02/19 10:24 PM Knee 1 or 2 Views Left Neena Rosado; Jairo (Navin ified) Notes:(Knee 1 or 2 Views Left) Reason For Exam: with Pain;TraumaRESULT: Knee 1 or 2 Views Left Knee 1 or 2 Views Left, views Refer to EMR; Reason: Trauma; with Pain; Clinical Question(s): Fracture. COMPARISON: 09/01/2017. FINDINGS: There is no evidence of acute or healing fracture, dislocation or bone lesion. No arthritic changes. No osteochondral defects or intra-articular loose bodies. No evidence of joint effusion. IMPRESSION: No fracture. I have personally reviewed the images and I agree with this report. WSN: [id number] Ordering Physician: Mary Soria Dictated By: Oscar Haddad MD Dictated Date/Time: 08/02/19 10:33 p Reviewed By: Ralf Thomas MD Signed By: Ralf Thomas MD Signed Date/Time: 08/02/19 10:38 pm Transcribed By: ANAYELI Transcribed Date/Time: 08/02/19 10:30 pm Exam Date Time Procedure Performing Provider Status 08/01/19 11:18 PM Chest 2 Views Frontal and Lat Ruddy Harmon; Jennifer th (Verified) Notes:(Chest 2 Views Frontal and Lat) Reason For Exam: Shortness of Breath, Fever;Other:RESULT: Chest 2 Views Frontal and Lat Chest 2 Views Frontal and Lat Refer to EMR; Reason: Other:; Shortness of Breath, Fever; Clinical Question(s): Pneumonia. COMPARISON: 07/20/2019. FINDINGS: LINES AND TUBES: None. LUNGS AND PLEURA: Clear lungs. Previously seen increased left retrocardiac density has resolved, most likely representing atelectasis. Normal pulmonary vascularity. No pleural effusion. No pneumothorax. HEART, MEDIASTINUM AND REY: Heart is normal in size. Normal mediastinal and hilar contour. BONES AND SOFT TISSUES: Mild thoracolumbar S-shaped scoliosis. No acute abnormality. IMPRESSION: No acute abnormality. Resolved left retrocardiac density. I have personally reviewed the images and I agree with this report. WSN: [id number] Ordering Physician: Edie Chavez Dictated By: Oscar Haddad MD Dictated Date/Time: 08/01/19 11:29 p Reviewed By: Ralf Thomas MD Signed By: Ralf Thomas MD Signed Date/Time: 08/01/19 11:34 pm Transcribed By: ANAYELI Transcribed Date/Time: 08/01/19 11:27 pm Vital Signs Most recent to oldest [Reference 1 2 3 Range]: Oxygen Saturation [94-100 %] 99 % 98 % 96 % (08/03/19 6:07 AM) (08/03/19 2:52 AM) (08/02/19 7:09 P M) Pulse Rate [55-90 bpm] 95 bpm 89 bpm 100 bpm *H* (08/03/19 2:52 AM) *H* (08/03/19 6:07 AM) (08/02/19 7:09 PM ) Blood Pressure [90-138/55-84 mm 139/88 mm Hg 132/65 mm Hg 155/86 mm Hg Hg] *H* (08/03/19 2:52 AM) *H* (08/03/19 6:07 AM) (08/02/19 7:09 PM ) Respiratory Rate [16-30 br/min] 16 br/min 18 br/min 18 br/min (08/03/19 6:07 AM) (08/03/19 2:52 AM) (08/02/19 7:09 P M) Temperature [96.8-100.4 DegF] 98.5 DegF 98.2 DegF 98 .6 DegF (08/03/19 6:07 AM) (08/02/19 7:09 PM) (08/02/19 6:50 P M) Mode of Delivery (Oxygen) Room air Room air Room a ir (08/03/19 6:07 AM) (08/03/19 2:52 AM) (08/02/19 7:09 P M) Blood pressure sites Arm, right Arm, right Arm, left (08/03/19:07 AM) (08/03/19 2:52 AM) (08/02/19 7:09 P M) Temperature Route Oral Oral Oral (08/03/19 6:07 AM) (08/02/19 7:09 PM) (08/02/19 6:50 P M) Social History Social History Type Response Smoking Status Never smoker; Tobacco user i n household: No entered on: 10/25/14 Sex Female
--- OUTSIDE RECORDS SUMMARY | 2021-12-30 21:49 | XMS_ITS | Continuity of Care Document ---
:1970 Author Organization [facility] Address [address] [place] [address]- Care Team Providers Name Role Phone Fidel Sheffield MD, Mohan Primary Care Physician [phone] Encounter [facility] Date(s): 05/03/19 - 05/13/[address] [address]- [facility] Attending Physician: Vinny Cornejo Admitting Physician: AdmVinny [...] Not Given Patient Refuses 1Result Comment: [05/03/2018] [id number] Comment: [05/03/2018] [id number] Note: pt stated she did not want [...] Refills, Maintenance, 04/19/19 13:22:00 EST, CR Capsule, [facility]/pharmacy #[id number], 142, cm, 04/15/19 9:03:00 EST, [...] capsule, 3 Refills, Maintenance, 04/19/19 13:22:00EST, Capsule, [facility]/pharmacy #0859, 142, cm, 04/15/19 9:03:00 EST, [...] 11:00:00 EDT, 04/01/19 13:49:00 EST, EC Tablet, [facility]/pharmacy #[id number], 142, cm, 04/01/19 11:22:00 EST, [...] 2 Refills, Maintenance, 04/01/19 13:47:00 EST, Capsule, [facility]/pharmacy #0859, 142, cm, 04/01/19 11:22:00 EST, Height, 92.6, kg, 03/30/19 10:30:00 EST, Dry Weight Start Date: 04/01/19 Status: Orderedmagnesium citrate 8.85% oral liquid 150 mL = 8.725 Gm, By Mouth, Once, # 300 mL, 0 Refills, Soft Stop, 04/28/19 17:14:00 EST, Liquid, [facility]/pharmacy #0315, 150 mL By Mouth Once, 142, cm, 04/28/19 9:05:00 EST, Height, 92.6, kg, 03/30/19 10:30:00 EST, Dry Weight Start Date: 04/28/19 Status: OrderedMiraLax oral powder for reconstitution = 17 Gm, By Mouth, Daily, dissolve in water before taking, # 255 Gm, 1 Refills, Acute 06/23/19 11:00:00 EDT, 04/01/19 13:47:00 EST, REC Powder, [facility]/pharmacy #[id number], 17 Gm By Mouth Daily,Instr:dissolve [...]
--- OUTSIDE RECORDS SUMMARY | 2021-12-30 21:49 | XMS_ITS | Continuity of Care Document ---
:1970 Author Organization [facility] Address [address] [place] [address]- Care Team Providers Name Role Phone Nasima Narayan DO Primary Care Physician Encounter [facility] Date(s): 01/03/20 - 01/06/[address] [address]- [facility] Discharge Disposition: A-D/C Home Attending Physician: Rajat Miles MD Admitting Physician: Lizandro Kwok MD Referring Physician: Not on Staff, Referring [...] Not Given Patient Refuses 1Result Comment: [05/03/2018] [id number] Comment: [05/03/2018] [id number] Note: pt stated she did not want to receive vaccine today, may want later Medications albuterol-ipratropium 3 mg-0.5 mg/3 ml inhalation solution 3 mL, Inhalation, 4 times a day, # 360 mL, 1 Refills, Maintenance, 12/13/19 8:19:00 EDT, Inhalation Solution, [facility], 3 mL Inhalation 4 [...] 01/06/20 10:18:00 EDT, Route to Pharmacy Electronically, [facility], 142, cm, 01/06/20 8:20:00EDT, [...] 11/21/19 12:43:00 EDT, [facility]85, 142, cm, 11/16/19 8:05:00 EDT, Height, 90.7, kg, 10/11/19 1:24:00 EDT, Dry Weight Start Date: 11/21/19 Status: OrderedDupixent 300 mg/2 mL subcutaneous solution 0 Refills, Maintenance, 11/17/19 4:27:00 EDT Start Date: 11/17/19 Status: Orderedfluticasone 50 mcg/inh nasal spray 1 sprays, Nares, Both, 2 times a day, 0 Refills, Maintenance, 11/17/19 4:21:00 EDT, [place] Start Date: 11/17/19 Status: Orderedlamotrigine 25 mg [...] 4:26:00 EDT, Tablet Start Date: 11/17/19 Status: Orderedlidocaine 4% topical film 1 patch, Topically, Daily, # 30 patch, 0 Refills, Maintenance, 01/06/20 10:41:00 EDT, Film, [facility] 3, 142, cm, 01/06/20 8:20:00 [...] tablet, 0 Refills, Maintenance, 11/23/19 18:18:00 EDT, [facility] [address]244, 142, cm, 11/16/19 8:05:00 EDT, Height, 90.7, kg, 10/11/19 1:24:00 EDT, Dry Weight Start Date: 11/23/19 Status: Orderedmontelukast 10 mg oral tablet 10 mg, 1, tablet, By Mouth, Daily in PM, # 30 tablet, Refills 0, Maintenance, 11/17/19 4:22:00 EDT Start Date: 11/17/19 Status: Orderednystatin 824493 u/ml oral suspension 1 mL = 100,000 [...] EDT, Dry Weight Start Date: 12/19/19 Status: Orderedprazosin 5 mg oral capsule 5 [...] Tot. Refills 0, Maintenance, 01/06/20 10:19:00 EDT, Route to Pharmacy Electronically, [facility] 3, 142, cm, 01/06/20 8:20:00 EDT, Height, 103, kg, 01/04/20 18:55:00 EDT,... Start Date: 01/06/20 Status: Ordered Problem List [...] Exam Date Time Procedure Performing Provider Status 01/03/20 10:55 PM Chest 2 Views Frontal and Lat Thomas oRberts; Modified Notes:(Chest 2 Views Frontal and Lat) Reason For Exam: chest pain;Other:RESULT: Chest 2 Views Frontal and Lat Chest 2 Views Frontal and Lat Hx of Present Illness: pt reports increased SOB and midsternal CP that she describes as sharp. Newlydiagnosed CHF, states she gained 7 pounds overnight.; Reason: Other:; chest pain; Clinical Question(s): CHF COMPARISON: 01/01/2020 FINDINGS: LINES AND TUBES: None. LUNGS AND PLEURA: The lateral view demonstrates interval blunting of the costophrenic sulci consistent with small pleural effusions. No consolidation or overt pulmonary edema. HEART, MEDIASTINUM AND REY: Heart is normal in size. Normal mediastinal and hilar contour. BONES AND SOFT TISSUES: No acute abnormality. IMPRESSION: New very small pleural effusions bilaterally. WSN: [id number] Ordering Physician: Ivonne Pederson Dictated By: Jourdan Girard MD Dictated Date/Time: 01/03/20 11:22 p Reviewed By: Jourdan Girard MD Signed By: Jourdan Girard MD Signed Date/Time: 01/03/20 11:22 pm Transcribed By: ANAYELI Transcribed Date/Time: 01/03/20 11:21 pm Vital Signs Most recent to oldest 1 2 3 [Reference Range]: Height 142 cm 142 cm 142 cm (01/06/20 8:20 AM) (01/06/20 2:00 AM) (01/05/20 8:1 1 PM) Weight 102 kg 102.7 kg 103.4 kg (01/06/20 6:41 AM) (01/05/20 6:33 AM) (01/04/20 6:4 8 PM) Oxygen Saturation [94-100 %] 97 % 91 % 94 % (01/06/20 8:20 AM) *L* (01/05/20 8:11 PM) (01/06/20 2:00 AM) Pulse Rate [55-90 bpm] 92 bpm 89 bpm 97 bpm *H* (01/06/20 2:00 AM) *H* (01/06/20 8:20 AM) (01/05/20 8:11 PM) Body Mass Index [18.5-24.99] 51.28 *>HHI* (01/04/20 6:48 PM) Blood Pressure [90-138/55-84 131/66 mm Hg 131/66 mm Hg 126 /74 mm Hg mm Hg] (01/06/20 10:56 AM) (01/06/20 8:20 AM) (01/06/20 2: 00 AM) Respiratory Rate [16-30 18 br/min 18 br/min 16 br/mi n br/min] (01/06/20 8:20 AM) (01/06/20 5:42 AM) (01/06/20 2:0 0 AM) Temperature [96.8-100.4 DegF] 97.1 DegF 96.8 DegF 97 .8 DegF (01/06/20 8:20 AM) (01/06/20 2:00 AM) (01/05/20 8:1 1 PM) Liters per Minute 2 L/min 2 L/min 2 L/min (01/05/20 2:58 AM) (01/04/20 6:48 PM) (01/04/20 12: 00 PM) Mode of Delivery (Oxygen) Room air Room air Room a ir (01/06/20 8:20 AM) (01/06/20 2:00 AM) (01/05/20 8:1 1 PM) Blood pressure sites Arm, right Arm, right Arm, right (01/06/20 8:20 AM) (01/06/20 2:00 AM) (01/05/20 8:1 1 PM) Temperature Route Temporal Temporal Temporal (01/06/20 8:20 AM) (01/06/20 2:00 AM) (01/05/20 8:1 1 PM) Dry Weight 103 kg (01/04/20 6:48 PM) Weight Obtained Via Bed scale (01/06/20 6:41 AM) Social History Social History Type Response Smoking Status Never (less than 100 in life time) entered on: 01/01/20 Sex
--- OUTSIDE RECORDS SUMMARY | 2021-12-30 21:49 | XMS_ITS | Continuity of Care Document ---
:1970 Author Organization [facility] Address [address] [place] [address]- Care Team Providers Name Role Phone Pbjonas Nasima FAITH Primary Care Physician Encounter [facility] Date(s): 10/09/20 - 11/08/20 [facility] [address], [place] [address] Attending Physician: Vinny Cornejo Admitting Physician: Vinny [...] Not Given Patient Refuses 1Result Comment: [05/03/2018] [id number] Comment: [05/03/2018] [id number] Note: pt stated she did not want to receive vaccine today, may want later Medications acetaminophen 325 mg oral tablet 650 mg, 2, tablet, By Mouth, Every 4 hours, PRN, for 14 days, # 100 tablet, Refills 0, Tot. Refills 0, Acute 11/18/20 23:32:00 EDT, as needed for pain, 11/04/20 23:32:00 EDT, Route to Pharmacy Electronically, [facility]/pharmacy #[id number], Partial fill upon meeta... Start Date: 11/04/20 Stop Date: 11/18/20 Status: Orderedalbuterol-ipratropium 3 mg-0.5 mg/3 ml inhalation solution 3 mL, Inhalation, 4 times a day, # 360 mL, 1 Refills, Maintenance, 12/13/19 8:19:00 EDT, Inhalation Solution, [facility], 3 mL Inhalation 4 times a day, 141, cm, 12/07/19 12:18:00 EDT, Height, 100.5, kg, 12/05/19 3:32:00 EDT, Dry Weight Start Date: 12/13/19 Status: OrderedApriso 0.375 g oral capsule, extended release 4 capsule = 1.5 Gm, By Mouth, Daily in AM, # 120 capsule, 4 Refills, Maintenance, 09/07/20 8:50:00 EDT, CR Capsule, [facility]/pharmacy #[id number], Partial fill [...] 3 Refills, Maintenance, 09/28/20 7:41:00 EDT, [facility]/pharmacy #[id number], 143, cm, 09/20/20 19:45:00 EDT, Height, 106.6, kg, 09/20/20 19:45:00 EDT, Dry Weight Start Date: 09/28/20 Stop Date: 01/26/21 Status: Orderedduloxetine 60 mg oral enteric coated capsule 1 capsule, By Mouth, Daily, # 30 capsule, 0 Refills, Maintenance, 11/21/19 12:43:00 EDT, [facility] STORE 91474, 142, cm, 11/16/19 8:05:00 EDT, Height, 90.7, kg, 10/11/19 1:24:00 EDT, Dry Weight Start Date: 11/21/19 Status: OrderedDupixent 300 mg/2 mL subcutaneous solution 0 Refills, Maintenance, 11/17/19 4:27:00 EDT Start Date: 11/17/19 Status: Orderedfluticasone 50 mcg/inh nasal spray 1 sprays, Nares, Both, 2 times a day, 0 Refills, Maintenance, 11/17/19 4:21:00 EDT, [place] Start Date: 11/17/19 Status: Orderedibuprofen 200 mg oral tablet 400 mg, 2, tablet, By Mouth, Every 4 hours, PRN, for 14 days, # 100 tablet, Refills 0, Tot. Refills 0, Acute 11/18/20 23:32:00 EDT, for pain, 11/04/20 23:32:00 EDT, Route to Pharmacy Electronically, [facility]/pharmacy #[id number], Partial fill upon patient reques... [...] 14:58:00 EST, [facility] STORE 96426, 143, cm, 01/14/20 22:55:00 EDT, Height, 101, kg, 01/14/20 22:55:00 EDT, Dry Weight Start Date: 01/30/20 Status: Orderedlidocaine 4% topical film 1 patch, Topically, Daily, # 30 patch, 0 Refills, Maintenance, 01/06/20 10:41:00 EDT, Film, [facility] 3, 142, cm, 01/06/20 8:20:00 EDT, Height, 103, kg, 01/04/20 18:55:00 EDT, Dry Weight Start Date: 01/06/20 Stop Date: 02/05/20 Status: Orderedlidocaine 5% topical film 1 patch, Topically, Daily, PRN Pain , Mild, remove after 12 hours, # 13 each, 0 Refills, Maintenance, 11/04/20 23:32:00 EDT, Film, [facility]/pharmacy #[id number], Partial fill upon patient request if the prescription is for a schedule II opioid drug., 1 patch Top... Start Date: 11/04/20 Status: Orderedmagnesium oxide 400 mg (240 mg elemental magnesium) oral tablet 1 tablet, By Mouth, Daily, # 90 tablet, 3 Refills, Acute, 04/10/20 10:44:00 EST, [facility], 90, TAKE 1 TABLET BY MOUTH EVERY [...]
--- OUTSIDE RECORDS SUMMARY | 2021-12-30 21:49 | XMS_ITS | Continuity of Care Document ---
:1970 Author Organization [facility] Address [address] [address]- Care Team Providers Name Role Phone Cristal OROZCO, Edie Segovia Primary Care Physician [phone] Encounter [facility] Date(s): 10/16/21 - 11/15/21 [facility] [address] [place] [id number] Allergies, Adverse Reactions, Alerts Substance Reaction Severity Status sulfADIAZINE Rash Active droperidol Anaphylactic reaction Persistent Severe Active penicillins Rash Active Toradol1, 2 Active Keflex Rash Active Glutens rash Active 1abd upset with [id number] upset Immunizations Given and Recorded Vaccine Date [...] Not Given Patient Refuses 1Result Comment: [05/03/2018] [id number] Comment: [05/03/2018] [id number] Note: pt stated she did not want [...] tablet, 1 Refills, Maintenance, 12/23/19 16:02:00 EDT, [facility]/pharmacy #[id number], 142, cm, [...] 05/29/21 18:11:00 EST, Route to Pharmacy Electronically, [facility]/pharmacy #[id number], Partial fill upon patient request if the prescriptio... Start Date: 05/29/21 Status: OrderedDaily-Madi with Iron oral tablet 1 tablet, By Mouth, Daily, # 90 tablet, 1 Refills, Maintenance, 12/02/19 14:20:00 EDT, [facility]/pharmacy #[id number], 1 tablet By Mouth [...] Status: Ordereddicyclomine 10 mg oral capsule 1 capsule, By Mouth, 3 times a day, PRN NEEDED FOR ABDOMINAL CRAMPS, # 90 capsule, 0 Refills, [facility], 143, cm, 10/16/21 19:52:00 EDT, Height, 88.5, kg, 10/16/21 19:52:00 EDT, Dry Weight Start Date: 10/17/21 Status: Orderedduloxetine 60 mg oral enteric coated capsule 1 capsule, By Mouth, Daily, # 30 capsule, 0 Refills, Maintenance, 11/21/19 12:43:00 EDT, [facility] STORE 27234, 142, cm, 11/16/19 8:05:00 EDT, Height, 90.7, kg, 10/11/19 1:24:00 EDT, Dry Weight Start Date: 11/21/19 Status: OrderedDupixent 300 mg/2 mL subcutaneous solution Every 14 days, 0 Refills, Maintenance, 11/17/19 4:27:00 EDT Start Date: 11/17/19 Status: Orderedfluticasone 50 mcg/inh nasal spray 1 sprays, Nares, Both, 2 times a day, 0 Refills, Maintenance, 11/17/19 4:21:00 EDT, [place] Start Date: 11/17/19 Status: OrderedImodium A-D 2 mg oral tablet 2 mg, 1, tablet, By Mouth, Every 4 hours, PRN, # 10 tablet, Refills 0, Tot. Refills 0, Maintenance, for loose stool, 07/27/21 19:52:00 EDT, Route to Pharmacy Electronically, [facility]/pharmacy #[id number], Partialfill upon patient request if the prescription is... Start Date: 07/27/21 Status: Orderedindomethacin 25 mg oral capsule 1 capsule = 25 mg, By Mouth, 3 times a day, PRN for arthritis, with food or milk, # 21 capsule, 0 Refills, Maintenance, 09/03/21 11:42:00 EDT, Capsule, [facility], Partial fill upon patient request [...] Refills, Maintenance, 01/30/20 14:58:00 EST, [facility], 143, cm, 01/14/20 22:55:00 EDT, Height, 101, kg, 01/14/20 22:55:00 EDT, Dry Weight Start Date: 01/30/20 Status: Orderedlidocaine 5% topical film 1 patch, Topically, Daily, PRN Pain , Mild, remove after 12 hours, # 13 each, 0 Refills, Maintenance, 08/22/21 22:17:00 EDT, Film, [facility]/pharmacy #[id number], Partial fill upon patient request if the prescription is for a schedule II opioid drug., 1 patch Top... Start Date: 08/22/21 Status: Orderedmagnesium oxide 400 mg oral tablet 1 tablet, By Mouth, Daily, # 90 tablet, 3 Refills, [facility], 143, cm, 04/02/21 3:19:00 EST, Height, 96.2, [...] II opioid drug. Start Date: 04/11/21 Status: OrderedTrelegy Ellipta inhalation powder 1 puffs, [...]
--- OUTSIDE RECORDS SUMMARY | 2021-12-30 21:49 | XMS_ITS | Continuity of Care Document ---
:1970 Author Organization [facility] Address [address] [place] [id number]- Care Team Providers Name Role Phone Nasima Narayan DO Primary Care Physician Encounter [facility] Date(s): 08/06/20 - 08/07/[address] [address]- Discharge Disposition: A-D/C Walkout Attending Physician: Not on Staff, Attending MD Admitting Physician: Not on Staff, Admitting MD Referring Physician: Not on Staff, Referring [...] Not Given Patient Refuses 1Result Comment: [05/03/2018] [id number] Comment: [05/03/2018] [id number] Note: pt stated she did not want to receive vaccine today, may want later Medications albuterol-ipratropium 3 mg-0.5 mg/3 ml inhalation solution 3 mL, Inhalation, 4 times a day, # 360 mL, 1 Refills, Maintenance, 12/13/19 8:19:00 EDT, Inhalation Solution, [facility], 3 mL Inhalation 4 times a day, 141, cm, 12/07/19 12:18:00 EDT, Height, 100.5, kg, 12/05/19 3:32:00 EDT, Dry Weight Start Date: 12/13/19 Status: OrderedAzithromycin 5 Day Dose Pack 250 mg oral tablet 1 pack/packet, By Mouth, Once, # 6 tablet, 0 Refills, Soft Stop, 06/27/20 15:07:00 EDT, Tablet, [facility]/pharmacy #[id number], Partial fill upon patient request [...] 01/06/20 10:18:00 EDT, Route to Pharmacy Electronically, [facility], 142, cm, 01/06/20 8:20:00EDT, Height, 103, kg, 01/04/20 18:55:00 EDT, Dry... Start Date: 01/06/20 Status: Orderedcetirizine 10 mg oral tablet 1 tablet, By Mouth, Daily, # 90 tablet, 1 Refills, Maintenance, 12/23/19 16:02:00 EDT, [facility]/pharmacy #[id number], 142, cm, 12/15/19 7:46:00 EDT, [...] tablet, 1 Refills, Maintenance, 12/02/19 14:20:00 EDT, [facility]/pharmacy #[id number], 1 tablet By Mouth Daily, [...] capsule, 3 Refills, Maintenance, 06/30/20 12:45:00 EDT, [facility]/pharmacy #0859, 142, cm, 06/27/20 14:47:00 EDT, Height, 100, kg, 06/18/20 15:45:00 EDT, Dry Weight Start Date: 06/30/20 Stop Date: 10/28/20 Status: Orderedduloxetine 60 mg oral enteric coated capsule 1 capsule, By Mouth, Daily, # 30 capsule, 0 Refills, Maintenance, 11/21/19 12:43:00 EDT, [facility] STORE 24354, 142, cm, 11/16/19 8:05:00 EDT, Height, 90.7, kg, 10/11/19 1:24:00 EDT, Dry Weight Start Date: 11/21/19 Status: OrderedDupixent 300 mg/2 mL subcutaneous solution 0 Refills, Maintenance, 11/17/19 4:27:00 EDT Start Date: 11/17/19 Status: Orderedfluticasone 50 mcg/inh nasal spray 1 sprays, Nares, Both, 2 times a day, 0 Refills, Maintenance, 11/17/19 4:21:00 EDT, [place] Start Date: 11/17/19 Status: Orderedlamotrigine 25 mg oral tablet 25 mg, 1, tablet, By Mouth, 2 times a day, # 60 tablet, Refills 0, Maintenance, 11/17/19 4:23:00 EDT Start Date: 11/17/19 Status: OrderedLasix 20 mg oral tablet 20 mg, 1, tablet, By Mouth, Daily, # 7 tablet, Refills 0, Tot. Refills 0, Maintenance, 07/15/20 22:03:00 EDT, Route to Pharmacy Electronically, [facility]/pharmacy #[id number], Partial fill upon patient request if the [...] tablet, 0 Refills, Maintenance, 01/30/20 14:58:00 EST, [facility] STORE [facility], 143, cm, 01/14/20 22:55:00 EDT, Height, 101, [...] tablet, 3 Refills, Acute, 04/10/20 10:44:00 EST, [facility] STORE 23556, 90, TAKE 1 TABLET BY MOUTH EVERY DAY, 143, cm, 03/27/20 7:23:00 EST, Height, 101, kg, 01/14/20 22:55:00EDT, Dry Weight Start Date: 04/10/20 Status: Orderedmeloxicam 7.5 mg oral tablet 1 tablet, By Mouth, Daily, # 30 tablet, 0 Refills, Maintenance, 11/23/19 18:18:00 EDT, [facility], 142, cm, 11/16/19 8:05:00 EDT, Height, 90.7, [...] 0 Refills, Maintenance, 12/19/19 13:39:00 EDT, Tablet, [facility]/pharmacy #[id number], 142, cm, 12/15/19 7:46:00 EDT, [...] recent to oldest [Reference Range]: 1 2 Oxygen Saturation [94-100 %] 100 % 98 % (08/07/20 12:27 AM) (08/06/20 8:46 PM) Pulse Rate [55-90 bpm] 73 bpm 76 bpm (08/07/20 12:27 AM) (08/06/20 8:46 PM) Blood Pressure [90-138/55-84 mm Hg] 134/87 mm Hg 118/ 64 mm Hg (08/07/20 12:27 AM) (08/06/20 8:46 PM) Respiratory Rate [16-30 br/min] 16 br/min 20 br/mi n (08/07/20 12:27 AM) (08/06/20 8:46 PM) Temperature [96.8-100.4 DegF] 97.7 DegF 98.8 DegF (08/07/20 12:27 AM) (08/06/20 8:46 PM) Mode of Delivery (Oxygen) Room air Room air (08/07/20 12:27 AM) (08/06/20 8:46 PM) Blood pressure sites Arm, left Arm, right (08/07/20 12:27 AM) (08/06/20 8:46 PM) Temperature Route Oral Oral (08/07/20 12:27 AM) (08/06/20 8:46 PM) Social History Social History Type Response Smoking Status Never (less than 100 in life time) entered on: 01/01/20 Sex
--- OUTSIDE RECORDS SUMMARY | 2021-12-30 21:50 | XMS_ITS | Continuity of Care Document ---
:1970 Author Organization [facility] Address [address] [place] [address]- Care Team Providers Name Role Phone Nasima Narayan DO Primary Care Physician Encounter [facility] Date(s): 11/21/20 - 12/21/20 [facility] [address] [address] Attending Physician: Vinny Cornejo Admitting Physician: Vinny Cornejo Referring Physician: AdmVinny del valle Allergies, Adverse [...] Not Given Patient Refuses 1Result Comment: [05/03/2018] [id number] Comment: [05/03/2018] [id number] Note: pt stated she did not want to receive vaccine today, may want later Medications albuterol-ipratropium 3 mg-0.5 mg/3 ml inhalation solution 3 mL, Inhalation, 4 times a day, # 360 mL, 1 Refills, Maintenance, 12/13/19 8:19:00 EDT, Inhalation Solution, [facility], 3 mL Inhalation [...] 3 Refills, Maintenance, 09/28/20 7:41:00 EDT, [facility]/pharmacy #[id number], 143, cm, 09/20/20 19:45:00 EDT, Height, 106.6, kg, 09/20/20 19:45:00 EDT, Dry Weight Start Date: 09/28/20 Stop Date: 01/26/21 Status: Orderedduloxetine 60 mg oral enteric coated capsule 1 capsule, By Mouth, Daily, # 30 capsule, 0 Refills, Maintenance, 11/21/19 12:43:00 EDT, [facility] STORE [address], 142, cm, 11/16/19 8:05:00 EDT, Height, 90.7, kg, 10/11/19 1:24:00 EDT, Dry Weight Start Date: 11/21/19 Status: OrderedDupixent 300 mg/2 mL subcutaneous solution Every 14 days, 0 Refills, Maintenance, 11/17/19 4:27:00 EDT Start Date: 11/17/19 Status: Orderedfluticasone 50 mcg/inh nasal spray 1 sprays, Nares, Both, 2 times a day, 0 Refills, Maintenance, 11/17/19 4:21:00 EDT, [place] Start Date: 11/17/19 Status: Orderedlamotrigine 25 mg [...] tablet, 0 Refills, Maintenance, 01/30/20 14:58:00 EST, [facility], 143, cm, 01/14/20 22:55:00 EDT, Height, 101, kg, 01/14/20 22:55:00 EDT, Dry Weight Start Date: 01/30/20 Status: Orderedlidocaine 4% topical film 1 patch, Topically, Daily, # 30 patch, 0 Refills, Maintenance, 01/06/20 10:41:00 EDT, Film, [facility] 3, 142, cm, 01/06/20 8:20:00 EDT, Height, 103, kg, 01/04/20 18:55:00 EDT, Dry Weight Start Date: 01/06/20 Stop Date: 02/05/20 Status: Orderedlidocaine 5% topical film 1 patch, Topically, Daily, PRN Pain , Mild, remove after 12 hours, # 13 each, 0 Refills, Maintenance, 11/04/20 23:32:00 EDT, Film, [facility]/pharmacy #[id number], Partial fill upon patient request if the prescription is for a schedule II opioid drug., 1 patch Top... Start Date: 11/04/20 Status: Orderedmagnesium oxide 400 mg (240 mg elemental magnesium) oral tablet 1 tablet, By Mouth, Daily, # 90 tablet, 3 Refills, Acute, 04/10/20 10:44:00 EST, [facility], 90, TAKE 1 TABLET BY MOUTH EVERY [...] Refills, Maintenance, 12/19/19 13:39:00 EDT, Tablet, [facility]/pharmacy #[id number], 142, cm, 12/15/19 7:46:00 [...]
--- OUTSIDE RECORDS SUMMARY | 2021-12-30 21:50 | XMS_ITS | Continuity of Care Document ---
:1970 Author Organization [facility] Address [address] [place] [address]- Care Team Providers Name Role Phone Go Schwarz MD Primary Care Physician Encounter [facility] [id number] Date(s): 07/12/19 - 08/11/[address] [address]- [facility] Attending Physician: Jerod Moe Allergies, Adverse Reactions, Alerts Substance Reaction Severity [...] Not Given Patient Refuses 1Result Comment: [05/03/2018] [id number] Comment: [05/03/2018] [id number] Note: pt stated she did not want [...] 11:33:53 EDT, Tablet Start Date: 10/04/18 Status: Ordereddiclofenac 3% topical gel 1 application, Topically, 2 times a day, # 50 Gm, 0 Refills, Maintenance, 08/10/19 15:44:00 EDT, Gel, [facility]/pharmacy #[id number], 1 application Topically 2 times a day, 142, cm, 08/08/19 8:45:00 EDT, Height, 89, kg, 08/03/19 13:47:00 EDT, Dry Weight Start Date: 08/10/19 Status: Ordereddivalproex sodium 500 mg oral enteric [...] Soft Stop, 04/28/19 17:14:00 EST, Liquid, [facility]/pharmacy #[id number], 150 mL By Mouth Once, 142, cm, 04/28/19 9:05:00 EST, Height, 92.6, kg, 03/30/19 10:30:00 EST, Dry Weight Start Date: 04/28/19 Status: Orderedmeloxicam 7.5 mg oral tablet 1 tablet = 7.5 mg, By Mouth, Daily, # 30 tablet, 0 Refills, Maintenance, 07/27/19 17:19:00 EDT, Tablet, [facility]/pharmacy #[id number], 138, cm, 07/25/19 10:31:00 EDT, Height, 90.9, kg, 06/21/19 14:06:00 EDT, Dry Weight Start Date: 07/27/19 Status: Orderedondansetron 4 mg oral tablet 1 tablet = 4 mg, By Mouth, Every 8 hours, PRN as needed for nausea and vomiting, # 15 tablet, 0 Refills, Maintenance, 08/10/19 15:44:00 EDT, Tablet, [facility]/pharmacy #[id number], 142, cm, 08/08/19 8:45:00 EDT, Height, [...]
--- OUTSIDE RECORDS SUMMARY | 2021-12-30 21:50 | XMS_ITS | Continuity of Care Document ---
:1970 Author Organization [facility] Address [address] [place] [address]- Care Team Providers Name Role Phone Go Schwarz MD Primary Care Physician Encounter [facility] Date(s): 12/05/19 - 12/07/[address] [address]- [facility] Discharge Disposition: A-D/C Home Attending Physician: Ezra Enamorado Sr, MD Admitting Physician: Liliana Wise MD Referring Physician: Not on Staff, Referring [...] Not Given Patient Refuses 1Result Comment: [05/03/2018] [id number] Comment: [05/03/2018] [id number] Note: pt stated she did not want [...] tablet, 1 Refills, Maintenance, 11/28/19 12:52:00 EDT, [facility] STORE 63808, 142, cm, 11/23/19 23:52:00 EDT, Height, 90.7, [...] tablet, 1 Refills, Maintenance, 12/02/19 14:20:00 EDT, [facility]/pharmacy #[id number], 1 tablet By Mouth Daily, 142, cm, 11/23/19 23:52:00 EDT, Height, 90.7, kg, 10/11/19 1:24:00 EDT, Dry Weight Start Date: 12/02/19 Status: Orderedduloxetine 60 mg oral enteric coated capsule 1 capsule, By Mouth, Daily, # 30 capsule, 0 Refills, Maintenance, 11/21/19 12:43:00 EDT, [facility] STORE 67633, 142, cm, 11/16/19 8:05:00 EDT, Height, 90.7, kg, 10/11/19 1:24:00 EDT, Dry Weight Start Date: 11/21/19 Status: OrderedDupixent 300 mg/2 mL subcutaneous solution 0 Refills, Maintenance, 11/17/19 4:27:00 EDT Start Date: 11/17/19 Status: Orderedfluticasone 50 mcg/inh nasal spray 1 sprays, Nares, Both, 2 times a day, 0 Refills, Maintenance, 11/17/19 4:21:00 EDT, [place] Start Date: 11/17/19 Status: Orderedfurosemide 20 mg oral tablet TAKE 2 TABLETS BY MOUTH TWICE A DAY Start [...] tablet, 0 Refills, Maintenance, 11/23/19 18:18:00 EDT, [facility] STORE 78480, 142, cm, 11/16/19 8:05:00 EDT, Height, 90.7, kg, 10/11/19 1:24:00 EDT, Dry Weight Start Date: 11/23/19 Status: Orderedmontelukast 10 mg oral tablet 10 mg, 1, tablet, By Mouth, Daily in PM, # 30 tablet, Refills 0, Maintenance, 11/17/19 4:22:00 EDT Start Date: 11/17/19 Status: Orderednystatin 861744 u/ml oral suspension 1 mL = 100,000 units, By Mouth, 4 times a day, # 30 mL, 0 Refills, Maintenance, 11/17/19 4:28:00 EDT, [place] Start Date: 11/17/19 Status: Orderedpantoprazole 20 mg oral delayed release tablet 0 Refills, Maintenance, 11/17/19 4:28:00 EDT Start Date: 11/17/19 Status: Orderedpotassium chloride 10 mEq oral tablet, extended release 1 tablet = 10 mEq, By Mouth, Daily, # 60 tablet, 0 Refills, Acute 12/14/19 9:00:00 EDT, 12/07/19 11:20:00 EDT, ER Tablet, [facility], 141, cm, 12/07/19 5:32:00 EDT, Height, 100.5, kg, 12/05/19 3:32:00 EDT, Dry Weight Start Date: 12/07/19 Stop Date: 12/14/19 Status: Orderedprazosin 5 mg oral capsule 5 [...] 12/09/19 12:04:00 EDT, 11/25/19 12:04:00 EDT, Capsule, [facility]/pharmacy #[id number], 142, cm, 11/23/19 23:52:00 EDT, Height, [...] Leg swelling(Confirmed) Active Ulcerative colitis(Confirmed) Active Results Orders for Microbiology Reports Name Date Urine Culture (Culture Urine) 12/06/19 Microbiology Reports TEST:Urine Culture STATUS:Unauthenticated BODY SITE: SOURCE:URINE COLLECTED DATE/TIME:12/06/19 3:18 PMUrine Culture SPECIMEN DESCRIPTION : URINE STRAIGHT CATH. SPECIAL REQUESTS : NONE CULTURE : NO GROWTH REPORT STATUS : PRELIMINARY REPORT Vital Signs Most recent to oldest [Reference 1 2 3 Range]: Height 141 cm 141 cm 141 cm (12/07/19 12:18 PM) (12/07/19 5:32 AM) (12/06/19 11:28 PM) Weight 102.8 kg 104 kg 101.4 kg (12/07/19 5:32 AM) (12/06/19 5:19 AM) (12/05/19 5:50 A M) Oxygen Saturation [94-100 %] 96 % 97 % 99 % (12/07/19 12:18 PM) (12/07/19 5:32 AM) (12/06/19 11:28 PM) Pulse Rate [55-90 bpm] 103 bpm 102 bpm 86 bpm *H* *H* (12/06/19 11:28 PM ) (12/07/19 12:18 PM) (12/07/19 5:32 AM) Body Mass Index [18.5-24.99] 51.71 52.31 51 *>HHI* *>HHI* *>HHI* (12/07/19 5:32 AM) (12/06/19 5:19 AM) (12/05/19 5:50 A M) Blood Pressure [90-138/55-84 mm 110/53 mm Hg 127/93 mm Hg 151/90 mm Hg Hg] (12/07/19 12:18 PM) (12/07/19 8:51 AM) *H* (12/07/19 5:32 AM) Respiratory Rate [16-30 br/min] 18 br/min 18 br/min 16 br/min (12/07/19 12:18 PM) (12/07/19 9:00 AM) (12/07/19 5:32 AM) Temperature [96.8-100.4 DegF] 98.5 DegF 98.1 DegF 97 .9 DegF (12/07/19 12:18 PM) (12/07/19 5:32 AM) (12/06/19 11:28 PM) Mode of Delivery (Oxygen) Room air Room air CPAP (12/07/19 12:18 PM) (12/07/19 5:32 AM) (12/06/19 11:28 PM) Blood pressure sites Arm, right Arm, left Arm, left (12/07/19 12:18 PM) (12/07/19 5:32 AM) (12/06/19 11:28 PM) Temperature Route Oral Oral Axillary (12/07/19 12:18 PM) (12/07/19 5:32 AM) (12/06/19 11:28 PM) Dry Weight 100.5 kg (12/05/19 3:29 AM) Weight Obtained Via Bed scale Bed scale (12/07/19 5:32 AM) (12/06/19 5:19 AM) Social History Social History Type Response Smoking Status Never smoker; Tobacco user i n household: No entered on: 10/25/14 Sex
--- OUTSIDE RECORDS SUMMARY | 2021-12-30 21:50 | XMS_ITS | Continuity of Care Document ---
:1970 Author Organization [facility] Address [address] [place] [address]- Care Team Providers Name Role Phone Rama Rodriguez NP Primary Care Physician Encounter [facility] R [id number] Date(s): 11/16/20 - 12/16/20 [facility] [address] [place] [address] Attending Physician: Vinny Cornejo Admitting Physician: Admtr, [id number] Referring Physician: Admtr, [id number] Allergies, Adverse Reactions, [...] Not Given Patient Refuses 1Result Comment: [05/03/2018] [id number] Comment: [05/03/2018] [id number] Note: pt stated she did not want to receive vaccine today, may want later Medications albuterol-ipratropium 3 mg-0.5 mg/3 ml inhalation solution 3 mL, Inhalation, 4 times a day, # 360 mL, 1 Refills, Maintenance, 12/13/19 8:19:00 EDT, Inhalation Solution, [facility], 3 mL Inhalation 4 times a day, 141, cm, 12/07/19 12:18:00 EDT, Height, 100.5, kg, 12/05/19 3:32:00 EDT, Dry Weight Start Date: 12/13/19 Status: OrderedApriso 0.375 g oral capsule, extended release 4 capsule = 1.5 Gm, By Mouth, Daily in AM, # 120 capsule, 4 Refills, Maintenance, 12/04/20 10:31:00 EDT, CR Capsule, [facility]/pharmacy #[id number], Partial fill upon patient request [...] capsule, 3 Refills, Maintenance, 09/28/20 7:41:00 EDT, [facility]/pharmacy #[id number], 143, cm, 09/20/20 19:45:00 EDT, Height, 106.6, kg, 09/20/20 19:45:00 EDT, Dry Weight Start Date: 09/28/20 Stop Date: 01/26/21 Status: Orderedduloxetine 60 mg oral enteric coated capsule 1 capsule, By Mouth, Daily, # 30 capsule, 0 Refills, Maintenance, 11/21/19 12:43:00 EDT, [facility], 142, cm, 11/16/19 8:05:00 EDT, Height, 90.7, kg, 10/11/19 1:24:00 EDT, Dry Weight Start Date: 11/21/19 Status: OrderedDupixent 300 mg/2 mL subcutaneous solution Every 14 days, 0 Refills, Maintenance, 11/17/19 4:27:00 EDT Start Date: 11/17/19 Status: Orderedfluticasone 50 mcg/inh nasal spray 1 sprays, Nares, Both, 2 times a day, 0 Refills, Maintenance, 11/17/19 4:21:00 EDT, [place] Start Date: 11/17/19 Status: Orderedlamotrigine 25 mg [...] tablet, 0 Refills, Maintenance, 01/30/20 14:58:00 EST, [facility] ST[facility] 18342, 143, cm, 01/14/20 22:55:00 EDT, Height, 101, kg, 01/14/20 22:55:00 EDT, Dry Weight Start Date: 01/30/20 Status: Orderedlidocaine 4% topical film 1 patch, Topically, Daily, # 30 patch, 0 Refills, Maintenance, 01/06/20 10:41:00 EDT, Film, [facility] 3, 142, cm, 01/06/20 8:20:00 EDT, Height, 103, kg, 01/04/20 18:55:00 EDT, Dry Weight Start Date: 01/06/20 Stop Date: 02/05/20 Status: Orderedlidocaine 5% topical film 1 patch, Topically, Daily, PRN Pain , Mild, remove after 12 hours, # 13 each, 0 Refills, Maintenance, 11/04/20 23:32:00 EDT, Film, [facility]/pharmacy #[id number], Partial fill upon patient request if the prescription is for a schedule II opioid drug., 1 patch Top... Start Date: 11/04/20 Status: Orderedmagnesium oxide 400 mg (240 mg elemental magnesium) oral tablet 1 tablet, By Mouth, Daily, # 90 tablet, 3 Refills, Acute, 04/10/20 10:44:00 EST, [facility] 1940[facility], 90, TAKE 1 TABLET BY MOUTH EVERY [...]
--- OUTSIDE RECORDS SUMMARY | 2021-12-30 21:50 | XMS_ITS | Continuity of Care Document ---
:1970 Author Organization [facility] Address [address] [place] [address]- Care Team Providers Name Role Phone Go Schwarz MD Primary Care Physician Encounter [facility] Date(s): 10/17/19 - 11/16/19 [facility] [address] [place] [address]- [facility] Attending Physician: Vinny Cornejo Admitting Physician: [...] Not Given Patient Refuses 1Result Comment: [05/03/2018] [id number] Comment: [05/03/2018] [id number] Note: pt stated she did not want [...] mL, 1 Refills, Maintenance, 11/07/19 12:29:00 EDT, [facility], 15, INHALE 1 VIAL VIA NEBULIZER 4 TIMES A DAY NEEDED FOR WHEEZING OR SHORTNESS OF BREAT... Start Date: 11/07/19 Status: OrderedAzithromycin 5 Day Dose Pack 250 mg oral tablet 1 pack/packet, By Mouth, Once, Take 2 tablets daily for first day then 1 tablet daily x 4 days, # 6 tablet, 0 Refills, Soft Stop, 10/11/19 13:41:00 EDT, Tablet, [facility]/pharmacy #0859, 140, cm, 10/11/19 1:24:00 EDT, Height, [...] tablet, 0 Refills, Maintenance, 11/03/19 17:40:00 EDT, [facility]ORE [address]39, 140, cm, 10/11/19 1:24:00 EDT, Height, 90.7, [...] 0 Refills, Maintenance, 09/09/19 19:51:00 EDT, Gel, [facility]/pharmacy #0859, 1 application Topically 2 times a [...] 0 Refills, Maintenance, 10/27/19 19:52:00 EDT, Capsule, [facility]/pharmacy #0859, 140, cm, 10/11/19 1:24:00 EDT, Height, [...] Gm, 0 Refills, Maintenance, 11/16/19 9:13:00 EDT, [place], [facility]/pharmacy #0859, 1 sprays Nares, Both 2 times a day, 142, cm, 11/16/19 8:05:00 EDT, Height, 90.7, kg, 10/11/19 1:24:00 EDT, Dry Weight Start Date: 11/16/19 Status: Orderedfurosemide 20 mg oral tablet 60 mg, 3, tablet, By Mouth, 2 times a day, # 180 tablet, Refills 2, Tot. Refills 2, Maintenance, 11/04/19 13:31:00 EDT, Route to Pharmacy Electronically, [facility]/pharmacy #0859, 140, cm, 10/11/19 1:24:00 EDT, Height, [...] tablet, 5 Refills, Maintenance, 10/20/19 9:31:00 EDT, [facility]/pharmacy #0859, 140, cm, 10/11/19 1:24:00 EDT, Height, [...] tablet, 0 Refills, Maintenance, 10/27/19 13:05:00 EDT, [facility] STORE [address]371, 140, cm, 10/11/19 1:24:00 EDT, Height, 90.7, [...] EDT, Supply Start Date: 10/14/19 Status: Orderednystatin 882275 u/ml oral suspension 1 mL = 100,000 units, By Mouth, 4 times a day, # 30 mL, 0 Refills, Maintenance, 08/25/19 4:36:00 EDT, Suspension Start Date: 08/25/19 Status: Orderedondansetron 4 mg oral tablet 1 tablet = 4 mg, By Mouth, Every 8 hours, PRN as needed for nausea and vomiting, # 15 tablet, 0 Refills, Maintenance, 08/10/19 15:44:00 EDT, Tablet, [facility]/pharmacy #0859, 142, cm, 08/08/19 8:45:00 EDT, Height, [...] 0 Refills, Maintenance, 10/14/19 14:35:00 EDT, Tablet, [facility]/pharmacy #0859, 140, cm, ... Start Date: 10/14/19 Status: Orderedpregabalin 75 mg oral capsule 1 capsule = 75 mg, By Mouth, 2 times a day, # 60 capsule, 0 Refills, Maintenance, 11/03/19 17:43:00 EDT, Capsule, [facility]/pharmacy #0859, 140, cm, 10/11/19 1:24:00 EDT, Height, [...] 0 Refills, Maintenance, 10/11/19 13:42:00 EDT, Syrup, [facility]/pharmacy #0859, 5 mL By Mouth Every 6 [...] 9:13:00 EDT, Aerosol, Route to Pharmacy Electronically, [id number], [facility]/pharmacy #0859, 142, cm, 11/16/19 8:05:00 EDT, Height, [...]
--- OUTSIDE RECORDS SUMMARY | 2021-12-30 21:50 | XMS_ITS | Continuity of Care Document ---
:1970 Author Organization [facility] Address [address] [place] [address]- Care Team Providers Name Role Phone Not on Staff, PCP Primary Care Physician Unavailable Encounter [facility] Date(s): 08/30/20 - 08/31/[address] [address]- Discharge Disposition: A-D/C Walkout Attending Physician: Not [...] Not Given Patient Refuses 1Result Comment: [05/03/2018] [id number] Comment: [05/03/2018] [id number] Note: pt stated she did not want to receive vaccine today, may want later Medications albuterol-ipratropium 3 mg-0.5 mg/3 ml inhalation solution 3 mL, Inhalation, 4 times a day, # 360 mL, 1 Refills, Maintenance, 12/13/19 8:19:00 EDT, Inhalation Solution, [facility], 3 mL Inhalation 4 times a day, 141, cm, 12/07/19 12:18:00 EDT, Height, 100.5, kg, 12/05/19 3:32:00 EDT, Dry Weight Start Date: 12/13/19 Status: OrderedAzithromycin 5 Day Dose Pack 250 mg oral tablet 1 pack/packet, By Mouth, Once, # 6 tablet, 0 Refills, Soft Stop, 06/27/20 15:07:00 EDT, Tablet, [facility]/pharmacy #0859, Partial fill upon patient request [...] 01/06/20 10:18:00 EDT, Route to Pharmacy Electronically, [facility], 142, cm, 01/06/20 8:20:00EDT, Height, 103, kg, 01/04/20 18:55:00 EDT, Dry... Start Date: 01/06/20 Status: Orderedcetirizine 10 mg oral tablet 1 tablet, By Mouth, Daily, # 90 tablet, 1 Refills, Maintenance, 12/23/19 16:02:00 EDT, [facility]/pharmacy #0859, 142, cm, 12/15/19 7:46:00 EDT, [...] capsule, 3 Refills, Maintenance, 06/30/20 12:45:00 EDT, [facility]/pharmacy #0859, 142, cm, 06/27/20 14:47:00 EDT, Height, 100, kg, 06/18/20 15:45:00 EDT, Dry Weight Start Date: 06/30/20 Stop Date: 10/28/20 Status: Orderedduloxetine 60 mg oral enteric coated capsule 1 capsule, By Mouth, Daily, # 30 capsule, 0 Refills, Maintenance, 11/21/19 12:43:00 EDT, [facility], 142, cm, 11/16/19 8:05:00 EDT, Height, 90.7, kg, 10/11/19 1:24:00 EDT, Dry Weight Start Date: 11/21/19 Status: OrderedDupixent 300 mg/2 mL subcutaneous solution 0 Refills, Maintenance, 11/17/19 4:27:00 EDT Start Date: 11/17/19 Status: Orderedfluticasone 50 mcg/inh nasal spray 1 sprays, Nares, Both, 2 times a day, 0 Refills, Maintenance, 11/17/19 4:21:00 EDT, [place] Start Date: 11/17/19 Status: Orderedlamotrigine 25 mg oral tablet 25 mg, 1, tablet, By Mouth, 2 times a day, # 60 tablet, Refills 0, Maintenance, 11/17/19 4:23:00 EDT Start Date: 11/17/19 Status: OrderedLasix 20 mg oral tablet 20 mg, 1, tablet, By Mouth, Daily, # 7 tablet, Refills 0, Tot. Refills 0, Maintenance, 07/15/20 22:03:00 EDT, Route to Pharmacy Electronically, [facility]/pharmacy #[id number], Partial fill upon patient request if [...] tablet, 0 Refills, Maintenance, 01/30/20 14:58:00 EST, [facility] STORE 52544, 143, cm, 01/14/20 22:55:00 EDT, Height, 101, kg, 01/14/20 22:55:00 EDT, Dry Weight Start Date: 01/30/20 Status: Orderedlidocaine 4% topical film 1 patch, Topically, Daily, # 30 patch, 0 Refills, Maintenance, 01/06/20 10:41:00 EDT, Film, [facility] 3, 142, cm, 01/06/20 8:20:00 EDT, Height, 103, kg, 01/04/20 18:55:00 EDT, Dry Weight Start Date: 01/06/20 Stop Date: 02/05/20 Status: Orderedmagnesium oxide 400 mg (240 mg elemental magnesium) oral tablet 1 tablet, By Mouth, Daily, # 90 tablet, 3 Refills, Acute, 04/10/20 10:44:00 EST, [facility] STORE [address]253, 90, TAKE 1 TABLET BY MOUTH EVERY DAY, 143, cm, 03/27/20 7:23:00 EST, Height, 101, kg, 01/14/20 22:55:00EDT, Dry Weight Start Date: 04/10/20 Status: Orderedmeloxicam 7.5 mg oral tablet 1 tablet, By Mouth, Daily, # 30 tablet, 0 Refills, Maintenance, 11/23/19 18:18:00 EDT, [facility], 142, cm, 11/16/19 8:05:00 EDT, Height, 90.7, [...] tablet, 0 Refills,Maintenance, 06/08/20 22:23:00 EST, Tablet, [facility]/pharmacy #0859, Partial fill upon patient request [...] 2 3 Range]: Oxygen Saturation [94-100 %] 98 % 94 % 96 % (08/31/20 5:39 AM) (08/31/20 3:38 AM) (08/31/20 1:24 A M) Pulse Rate [55-90 bpm] 74 bpm 83 bpm 73 bpm (08/31/20 5:39 AM) (08/31/20 3:38 AM) (08/31/20 1:24 A M) Blood Pressure [90-138/55-84 mm 124/74 mm Hg 139/82 mm Hg 103/61 mm Hg Hg] (08/31/20 5:39 AM) *H* (08/31/20 1:24 AM ) (08/31/20 3:38 AM) Respiratory Rate [16-30 br/min] 20 br/min 20 br/min 20 br/min (08/31/20 5:39 AM) (08/31/20 3:38 AM) (08/31/20 1:24 A M) Temperature [96.8-100.4 DegF] 97.7 DegF 98.9 DegF 98 .1 DegF (08/31/20 5:39 AM) (08/31/20 3:38 AM) (08/31/20 1:24 A M) Mode of Delivery (Oxygen) Room air Room air Room a ir (08/31/20 5:39 AM) (08/31/20 3:38 AM) (08/31/20 1:24 A M) Blood pressure sites Arm, right Arm, right Arm, right (08/31/20 5:39 AM) (08/31/20 3:38 AM) (08/31/20 1:24 A M) Temperature Route Oral Oral Oral (08/31/20 5:39 AM) (08/31/20 3:38 AM) (08/31/20 1:24 A M) Social History Social History Type Response Smoking Status Never (less than 100 in life time) entered on: 01/01/20 Sex
--- OUTSIDE RECORDS SUMMARY | 2021-12-30 21:50 | XMS_ITS | Continuity of Care Document ---
:1970 Author Organization [facility] Address [address] [place] [address]- Care Team Providers Name Role Phone Nasima Narayan DO Primary Care Physician Encounter [facility] Date(s): 06/12/20 - 06/13/[address] [address]- Encounter Diagnosis Shortness of breath (Final) - 06/13/20 Discharge Disposition: A-D/C Home Attending Physician: Kelvin Barnhart MD Admitting Physician: Kelvin Barnhart MD Referring Physician: Not on Staff, Referring MD Allergies, Adverse Reactions, Alerts Substance Reaction Severity Status sulfADIAZINE Rash Active penicillins Rash Active Toradol Active Diamox1 [...] Not Given Patient Refuses 1Result Comment: [05/03/2018] [id number] Comment: [05/03/2018] [id number] Note: pt stated she did not want to receive vaccine today, may want later Medications albuterol-ipratropium 3 mg-0.5 mg/3 ml inhalation solution 3 mL, Inhalation, 4 times a day, # 360 mL, 1 Refills, Maintenance, 12/13/19 8:19:00 EDT, Inhalation Solution, [facility], 3 mL Inhalation 4 [...] 01/06/20 10:18:00 EDT, Route to Pharmacy Electronically, [facility], 142, cm, 01/06/20 8:20:00EDT, Height, 103, kg, 01/04/20 18:55:00 EDT, Dry... Start Date: 01/06/20 Status: Orderedcetirizine 10 mg oral tablet 1 tablet, By Mouth, Daily, # 90 tablet, 1 Refills, Maintenance, 12/23/19 16:02:00 EDT, [facility]/pharmacy #0859, 142, cm, 12/15/19 7:46:00 EDT, Height, [...] 1 Refills, Maintenance, 12/02/19 14:20:00 EDT, [facility]/pharmacy #0859, 1 tablet By Mouth Daily, 142, [...] 0 Refills, Maintenance, 11/21/19 12:43:00 EDT, [facility] STORE 70115, 142, cm, 11/16/19 8:05:00 EDT, Height, 90.7, kg, 10/11/19 1:24:00 EDT, Dry Weight Start Date: 11/21/19 Status: OrderedDupixent 300 mg/2 mL subcutaneous solution 0 Refills, Maintenance, 11/17/19 4:27:00 EDT Start Date: 11/17/19 Status: Orderedfluticasone 50 mcg/inh nasal spray 1 sprays, Nares, Both, 2 times a day, 0 Refills, Maintenance, 11/17/19 4:21:00 EDT, [place] Start Date: 11/17/19 Status: Orderedlamotrigine 25 mg [...] tablet, 0 Refills, Maintenance, 01/30/20 14:58:00 EST, [facility], 143, cm, 01/14/20 22:55:00 EDT, Height, 101, kg, 01/14/20 22:55:00 EDT, Dry Weight Start Date: 01/30/20 Status: Orderedlidocaine 4% topical film 1 patch, Topically, Daily, # 30 patch, 0 Refills, Maintenance, 01/06/20 10:41:00 EDT, Film, [facility] 3, 142, cm, 01/06/20 8:20:00 EDT, Height, 103, kg, 01/04/20 18:55:00 EDT, Dry Weight Start Date: 01/06/20 Stop Date: 02/05/20 Status: Orderedmagnesium oxide 400 mg (240 mg elemental magnesium) oral tablet 1 tablet, By Mouth, Daily, # 90 tablet, 3 Refills, Acute, 04/10/20 10:44:00 EST, [facility]65, 90, TAKE 1 TABLET BY MOUTH EVERY DAY, 143, cm, 03/27/20 7:23:00 EST, Height, 101, kg, 01/14/20 22:55:00EDT, Dry Weight Start Date: 04/10/20 Status: Orderedmeloxicam 7.5 mg oral tablet 1 tablet, By Mouth, Daily, # 30 tablet, 0 Refills, Maintenance, 11/23/19 18:18:00 EDT, [facility], 142, cm, 11/16/19 8:05:00 EDT, Height, 90.7, [...] Dry Weight Start Date: 04/11/20 Status: Orderednystatin 338944 u/ml oral suspension 1 mL = 100,000 units, By Mouth, 4 times a day, # 30 mL, 0 Refills, Maintenance, 11/17/19 4:28:00 EDT, Suspension Start Date: 11/17/19 Status: Orderedondansetron 4 mg oral tablet 1 tablet = 4 mg, By Mouth, Every 8 hours, PRN Nausea & Vomiting, # 10 tablet, 0 Refills, Maintenance, 12/19/19 13:39:00 EDT, Tablet, [facility]/pharmacy #0859, 142, cm, 12/15/19 7:46:00 EDT, Height, [...] Refills, Maintenance, 01/10/20 7:53:00 EDT, Capsule, [facility]/pharmacy #0859, 142, cm, 01/08/20 22:31:00 EDT, Height, [...] %] 99 % 100 % 99 % (06/13/20 2:54 AM) (06/13/20 12:27 AM) (06/12/20 8: 43 PM) Pulse Rate [55-90 bpm] 74 bpm 76 bpm 77 bpm (06/13/20 2:54 AM) (06/13/20 12:27 AM) (06/12/20 8: 43 PM) Blood Pressure [90-138/55-84 104/66 mm Hg 121/78 mm Hg 127 /84 mm Hg mm Hg] (06/13/20 2:54 AM) (06/13/20 12:27 AM) (06/12/20 8: 43 PM) Respiratory Rate [16-30 18 br/min 16 br/min 19 br/mi n br/min] (06/13/20 2:54 AM) (06/13/20 12:27 AM) (06/12/20 8: 43 PM) Temperature [96.8-100.4 DegF] 98.3 DegF 98.4 DegF 98 .6 DegF (06/13/20 2:54 AM) (06/13/20 12:27 AM) (06/12/20 8: 43 PM) Mode of Delivery (Oxygen) Room air Room air Room a ir (06/13/20 2:54 AM) (06/13/20 12:27 AM) (06/12/20 8: 43 PM) Blood pressure sites Arm, right Arm, left Arm, left (06/13/20 2:54 AM) (06/13/20 12:27 AM) (06/12/20 8: 43 PM) Temperature Route Oral Oral Oral (06/13/20 2:54 AM) (06/13/20 12:27 AM) (06/12/20 8: 43 PM) Social History Social History Type Response Smoking Status Never (less than 100 in life time) entered on: 01/01/20 Sex
--- OUTSIDE RECORDS SUMMARY | 2021-12-30 21:50 | XMS_ITS | Continuity of Care Document ---
:1970 Author Organization [facility] Address [address] [place] [address]- Care Team Providers Name Role Phone Rama Rodriguez NP Primary Care Physician Encounter [facility] Date(s): 10/30/20 - 11/29/20 [facility] [address] [place] [id number]- Allergies, Adverse Reactions, Alerts Substance Reaction Severity [...] Not Given Patient Refuses 1Result Comment: [05/03/2018] [id number] Comment: [05/03/2018] [id number] Note: pt stated she did not want to receive vaccine today, may want later Medications albuterol-ipratropium 3 mg-0.5 mg/3 ml inhalation solution 3 mL, Inhalation, 4 times a day, # 360 mL, 1 Refills, Maintenance, 12/13/19 8:19:00 EDT, Inhalation Solution, [facility], 3 mL Inhalation [...] Refills, Maintenance, 11/21/19 12:43:00 EDT, [facility], 142, cm, 11/16/19 8:05:00 EDT, Height, 90.7, kg, 10/11/19 1:24:00 EDT, Dry Weight Start Date: 11/21/19 Status: OrderedDupixent 300 mg/2 mL subcutaneous solution Every 14 days, 0 Refills, Maintenance, 11/17/19 4:27:00 EDT Start Date: 11/17/19 Status: Orderedfluticasone 50 mcg/inh nasal spray 1 sprays, Nares, Both, 2 times a day, 0 Refills, Maintenance, 11/17/19 4:21:00 EDT, [place] Start Date: 11/17/19 Status: Orderedlamotrigine 25 mg [...] Refills, Maintenance, 01/30/20 14:58:00 EST, [facility], 143, cm, 01/14/20 22:55:00 EDT, Height, 101, kg, 01/14/20 22:55:00 EDT, Dry Weight Start Date: 01/30/20 Status: Orderedlidocaine 4% topical film 1 patch, Topically, Daily, # 30 patch, 0 Refills, Maintenance, 01/06/20 10:41:00 EDT, Film, [facility] 3, 142, cm, 01/06/20 8:20:00 EDT, Height, 103, kg, 01/04/20 18:55:00 EDT, Dry Weight Start Date: 01/06/20 Stop Date: 02/05/20 Status: Orderedlidocaine 5% topical film 1 patch, Topically, Daily, PRN Pain , Mild, remove after 12 hours, # 13 each, 0 Refills, Maintenance, 11/04/20 23:32:00 EDT, Film, [facility]/pharmacy #0859, Partial fill upon patient request if the prescription is for a schedule II opioid drug., 1 patch Top... Start Date: 11/04/20 Status: Orderedmagnesium oxide 400 mg (240 mg elemental magnesium) oral tablet 1 tablet, By Mouth, Daily, # 90 tablet, 3 Refills, Acute, 04/10/20 10:44:00 EST, [facility]ORE [address]0432, 90, TAKE 1 TABLET BY MOUTH EVERY [...] 0 Refills, Maintenance, 12/19/19 13:39:00 EDT, Tablet, [facility]/pharmacy #0859, 142, cm, 12/15/19 7:46:00 EDT, [...]
--- OUTSIDE RECORDS SUMMARY | 2021-12-30 21:50 | XMS_ITS | Continuity of Care Document ---
:1970 Author Organization [facility] Address [address] [place] [address]- Care Team Providers Name Role Phone Mohan Chew MD Primary Care Physician [phone] Encounter [facility] [id number] Date(s): 07/01/19 - 07/08/19 [facility] [address] [place] [address]- [facility] Encounter Diagnosis Asthma (Discharge Diagnosis) - 07/01/19 Hypothyroidism (Discharge Diagnosis) - 07/01/19 TRISTAN on CPAP (Discharge Diagnosis) - 07/01/19 HTN (hypertension) (Discharge Diagnosis) - 07/01/19 Celiac disease (Discharge Diagnosis) - 07/01/19 Major depression (Discharge Diagnosis) - 07/01/19 Thrush (Discharge Diagnosis) - 07/01/19 Neck pain (Discharge Diagnosis) - 07/01/19 GERD (gastroesophageal reflux disease) (Discharge Diagnosis) - 07/01/19 Attending Physician: Mohan Chew MD Allergies, Adverse [...] Not Given Patient Refuses 1Result Comment: [05/03/2018] [id number] Comment: [05/03/2018] [id number] Note: pt stated she did not want to receive vaccine today, may want later Medications Apriso 0.375 g oral capsule, extended release 4 capsule = 1.5 Gm, By Mouth, Daily in AM, # 120 capsule, 3 Refills, Maintenance, 06/16/19 11:33:00 EDT, CR Capsule, [facility]/pharmacy #0859, 143, cm, 06/09/19 7:23:00 EDT, [...] capsule, 3 Refills, Maintenance, 04/19/19 13:22:00EST, Capsule, [facility]/pharmacy #0859, 142, cm, 04/15/19 9:03:00 EST, [...] Refills, Soft Stop, 04/28/19 17:14:00 EST, Liquid, [facility]/pharmacy #0315, 150 mL By Mouth Once, [...] (post-traumatic stress Active disorder)(Confirmed) Ulcerative colitis(Confirmed) Active Diagnosis Diagnosis Type Effective Dates Health Clinical Infor mant Status Service Asthma Discharge 07/01/19 Diagnosis Hypothyroidism Discharge 07/01/19 Diagnosis TRISTAN on CPAP Discharge 07/01/19 Diagnosis HTN (hypertension) Discharge 07/01/19 Diagnosis Celiac disease Discharge 07/01/19 Diagnosis Major depression Discharge 07/01/19 Diagnosis Thrush Discharge 07/01/19 Diagnosis Neck pain Discharge 07/01/19 Diagnosis GERD Discharge 07/01/19 (gastroesophageal Diagnosis reflux disease) Social History Social History Type Response Smoking Status Never smoker; Tobacco user i n household: No entered on: 10/25/14 Sex Female
--- OUTSIDE RECORDS SUMMARY | 2021-12-30 21:50 | XMS_ITS | Continuity of Care Document ---
:1970 Author Organization [facility] Address [address] [place] [address]- Care Team Providers Name Role Phone Nasima Narayan DO Primary Care Physician Encounter [facility] Date(s): 02/13/20 - 03/14/20 [facility] [place] [address] [place], [place] [address] Allergies, Adverse Reactions, Alerts Substance Reaction Severity [...] Not Given Patient Refuses 1Result Comment: [05/03/2018] [id number] Comment: [05/03/2018] [id number] Note: pt stated she did not want to receive vaccine today, may want later Medications albuterol-ipratropium 3 mg-0.5 mg/3 ml inhalation solution 3 mL, Inhalation, 4 times a day, # 360 mL, 1 Refills, Maintenance, 12/13/19 8:19:00 EDT, Inhalation Solution, [facility], 3 mL Inhalation 4 [...] 01/06/20 10:18:00 EDT, Route to Pharmacy Electronically, [facility] 3, 142, cm, 01/06/20 8:20:00EDT, Height, 103, kg, 01/04/20 18:55:00 EDT, Dry... Start Date: 01/06/20 Status: Orderedcetirizine 10 mg oral tablet 1 tablet, By Mouth, Daily, # 90 tablet, 1 Refills, Maintenance, 12/23/19 16:02:00 EDT, [facility]/pharmacy #0859, 142, cm, 12/15/19 7:46:00 [...] tablet, 1 Refills, Maintenance, 12/02/19 14:20:00 EDT, [facility]/pharmacy #0859, 1 tablet By Mouth [...] Refills, Maintenance, 11/21/19 12:43:00 EDT, [facility], 142, cm, 11/16/19 8:05:00 EDT, Height, 90.7, kg, 10/11/19 1:24:00 EDT, Dry Weight Start Date: 11/21/19 Status: OrderedDupixent 300 mg/2 mL subcutaneous solution 0 Refills, Maintenance, 11/17/19 4:27:00 EDT Start Date: 11/17/19 Status: Orderedfluticasone 50 mcg/inh nasal spray 1 sprays, Nares, Both, 2 times a day, 0 Refills, Maintenance, 11/17/19 4:21:00 EDT, [place] Start Date: 11/17/19 Status: Orderedlamotrigine 25 mg [...] tablet, 0 Refills, Maintenance, 01/30/20 14:58:00 EST, [facility] ST[facility] 86[facility], 143, cm, 01/14/20 22:55:00 EDT, Height, 101, kg, 01/14/20 22:55:00 EDT, Dry Weight Start Date: 01/30/20 Status: Orderedlidocaine 4% topical film 1 patch, Topically, Daily, # 30 patch, 0 Refills, Maintenance, 01/06/20 10:41:00 EDT, Film, [facility] 3, 142, cm, 01/06/20 8:20:00 EDT, [...] tablet, 0 Refills, Maintenance, 11/23/19 18:18:00 EDT, [facility] STORE 70326, 142, cm, 11/16/19 8:05:00 EDT, Height, 90.7, kg, 10/11/19 1:24:00 EDT, Dry Weight Start Date: 11/23/19 Status: Orderedmontelukast 10 mg oral tablet 10 mg, 1, tablet, By Mouth, Daily in PM, # 30 tablet, Refills 0, Maintenance, 11/17/19 4:22:00 EDT Start Date: 11/17/19 Status: Orderednystatin 224823 u/ml oral suspension 1 mL = 100,000 units, By Mouth, 4 times a day, # 30 mL, 0 Refills, Maintenance, 11/17/19 4:28:00 EDT, Suspension Start Date: 11/17/19 Status: Orderedondansetron 4 mg oral tablet 1 tablet = 4 mg, By Mouth, Every 8 hours, PRN Nausea & Vomiting, # 10 tablet, 0 Refills, Maintenance, 12/19/19 13:39:00 EDT, Tablet, [facility]/pharmacy #0859, 142, cm, 12/15/19 7:46:00 [...] 3 Refills, Maintenance, 01/10/20 7:53:00 EDT, Capsule, [facility]/pharmacy #0859, 142, cm, 01/08/20 22:31:00 EDT, [...]
--- OUTSIDE RECORDS SUMMARY | 2021-12-30 21:50 | XMS_ITS | Continuity of Care Document ---
:1970 Author Organization [facility] Address [address] [place] [address]- Care Team Providers Name Role Phone Nasima Narayan DO Primary Care Physician [place] [facility] [place] 06/[place]/[address] [address]- Encounter Diagnosis Nausea (Final) - 06/08/20 Shortness of breath (Final) - 06/08/20 Discharge Disposition: A-D/C Home Attending Physician: Christina Perez MD Admitting Physician: Christina Perez MD Referring Physician: Not on Staff, Referring [...] Not Given Patient Refuses 1Result Comment: [05/03/2018] [id number] Comment: [05/03/2018] [id number] Note: pt stated she did not want to receive vaccine today, may want later Medications albuterol-ipratropium 3 mg-0.5 mg/3 ml inhalation solution 3 mL, Inhalation, 4 times a day, # 360 mL, 1 Refills, Maintenance, 12/13/19 8:19:00 EDT, Inhalation Solution, [facility], 3 mL Inhalation 4 [...] 01/06/20 10:18:00 EDT, Route to Pharmacy Electronically, [facility], 142, cm, 01/06/20 8:20:00EDT, Height, 103, kg, 01/04/20 18:55:00 EDT, Dry... Start Date: 01/06/20 Status: Orderedcetirizine 10 mg oral tablet 1 tablet, By Mouth, Daily, # 90 tablet, 1 Refills, Maintenance, 12/23/19 16:02:00 EDT, [facility]/pharmacy #[id number], 142, cm, 12/15/19 7:46:00 EDT, Height, [...] Refills, Maintenance, 12/02/19 14:20:00 EDT, [facility]/pharmacy #[id number], 1 tablet By Mouth Daily, 142, [...] Refills, Maintenance, 11/21/19 12:43:00 EDT, [facility], 142, cm, 11/16/19 8:05:00 EDT, Height, 90.7, kg, 10/11/19 1:24:00 EDT, Dry Weight Start Date: 11/21/19 Status: OrderedDupixent 300 mg/2 mL subcutaneous solution 0 Refills, Maintenance, 11/17/19 4:27:00 EDT Start Date: 11/17/19 Status: Orderedfluticasone 50 mcg/inh nasal spray 1 sprays, Nares, Both, 2 times a day, 0 Refills, Maintenance, 11/17/19 4:21:00 EDT, [place] Start Date: 11/17/19 Status: Orderedlamotrigine 25 mg [...] Refills, Maintenance, 01/30/20 14:58:00 EST, [facility], 143, cm, 01/14/20 22:55:00 EDT, Height, 101, [...] Refills, Acute, 04/10/20 10:44:00 EST, [facility], 90, TAKE 1 TABLET BY MOUTH EVERY DAY, 143, cm, 03/27/20 7:23:00 EST, Height, 101, kg, 01/14/20 22:55:00EDT, Dry Weight Start Date: 04/10/20 Status: Orderedmeloxicam 7.5 mg oral tablet 1 tablet, By Mouth, Daily, # 30 tablet, 0 Refills, Maintenance, 11/23/19 18:18:00 EDT, [facility], 142, cm, 11/16/19 8:05:00 EDT, Height, 90.7, [...] Dry Weight Start Date: 04/11/20 Status: Orderednystatin 733248 u/ml oral suspension 1 mL = 100,000 units, By Mouth, 4 times a day, # 30 mL, 0 Refills, Maintenance, 11/17/19 4:28:00 EDT, [place] Start Date: 11/17/19 Status: Orderedondansetron 4 mg oral tablet 1 tablet = 4 mg, By Mouth, Every 8 hours, PRN Nausea & Vomiting, # 10 tablet, 0 Refills, Maintenance, 12/19/19 13:39:00 EDT, Tablet, [facility]/pharmacy #[id number], 142, cm, 12/15/19 7:46:00 EDT, Height, [...] 3 Refills, Maintenance, 01/10/20 7:53:00 EDT, Capsule, [facility]/pharmacy #0859, 142, cm, 01/08/20 22:31:00 EDT, Height, [...] Exam Date Time Procedure Performing Provider Status 06/08/20 6:48 PM Chest Portable Paulino Luong ([facility] ed) Notes:(Chest Portable) Reason For Exam: Shortness of BreathRESULT: Chest Portable Chest Portable Hx of Present Illness: pt reporting, +sob CP abdominal pain dark tarry stools vomiting dark blood for two weeks; Reason: Shortness of Breath; Clinical Question(s): CHF COMPARISON: 06/05/2020 FINDINGS: LINES AND TUBES: None. LUNGS AND PLEURA: Clear lungs. Normal pulmonary vascularity. No pleural effusion. No pneumothorax. HEART, MEDIASTINUM AND REY: Heart is normal in size. Normal upper mediastinal and hilar contour. BONES AND SOFT TISSUES: No acute abnormality. IMPRESSION: No acute abnormality. WSN: [id number] Ordering Physician: Carmen Portillo Dictated By: Jonny Jordan DO Dictated Date/Time: 06/08/20 6:51 pm Reviewed By: Jonny Jordan DO Signed By: Jonny Jordan DO Signed Date/Time: 06/08/20 6:51 pm Transcribed By: ANAYELI Transcribed Date/Time: 06/08/20 6:51 pm Vital Signs Most recent to oldest 1 2 3 [Reference Range]: Height 142 cm 142 cm (06/08/20 10:13 PM) (06/08/20 5:24 PM) Weight 100 kg 100 kg (06/08/20 10:13 PM) (06/08/20 5:24 PM) Oxygen Saturation [94-100 %] 95 % 98 % 100 % (06/08/20 10:13 PM) (06/08/20 8:39 PM) (06/08/20 5: 24 PM) Pulse Rate [55-90 bpm] 83 bpm 74 bpm 81 bpm (06/08/20 10:13 PM) (06/08/20 8:39 PM) (06/08/20 5: 24 PM) Body Mass Index [18.5-24.99] 49.59 *>HHI* (06/08/20 10:13 PM) Blood Pressure [90-138/55-84 125/62 mm Hg 131/77 mm Hg 154 /85 mm Hg mm Hg] (06/08/20 10:13 PM) (06/08/20 8:39 PM) *H* (06/08/20 5:24 PM ) Respiratory Rate [16-30 20 br/min 20 br/min 18 br/mi n br/min] (06/08/20 10:13 PM) (06/08/20 8:39 PM) (06/08/20 5: 24 PM) Temperature [96.8-100.4 DegF] 98.4 DegF 99.0 DegF (06/08/20 10:13 PM) (06/08/20 5:24 PM) Mode of Delivery (Oxygen) Room air Room air Room a ir (06/08/20 10:13 PM) (06/08/20 8:39 PM) (06/08/20 5: 24 PM) Blood pressure sites Arm, left (06/08/20 10:13 PM) Temperature Route Oral (06/08/20 5:24 PM) Dry Weight 100 kg 100 kg (06/08/20 10:13 PM) (06/08/20 5:24 PM) Social History Social History Type Response Smoking Status Never (less than 100 in life time) entered on: 01/01/20 Sex
--- OUTSIDE RECORDS SUMMARY | 2021-12-30 21:50 | XMS_ITS | Continuity of Care Document ---
:1970 Author Organization [facility] Address [address] [place] [address]- Care Team Providers Name Role Phone Cristal OROZCO, Edie Segovia Primary Care Physician Encounter [facility] Date(s): 07/10/21 - 07/11/[address] [address] [place] Encounter Diagnosis Headache (Final) - 07/10/21 Discharge Disposition: A-D/C Home Attending Physician: Kings Cornelius MD Admitting Physician: Abbie Verde MD Referring Physician: Not on Staff, Referring [...] Not Given Patient Refuses 1Result Comment: [05/03/2018] [id number] Comment: [05/03/2018] [id number] Note: pt stated she did not want [...] 12:43:00 EDT, [facility], 142, cm, 11/16/19 8:05:00 EDT, Height, 90.7, kg, 10/11/19 1:24:00 EDT, Dry Weight Start Date: 11/21/19 Status: OrderedDupixent 300 mg/2 mL subcutaneous solution Every 14 days, 0 Refills, Maintenance, 11/17/19 4:27:00 EDT Start Date: 11/17/19 Status: Orderedfluticasone 50 mcg/inh nasal spray 1 sprays, Nares, Both, 2 times a day, 0 Refills, Maintenance, 11/17/19 4:21:00 EDT, [place] Start Date: 11/17/19 Status: OrderedLatuda 40 mg oral tablet 1 tablet = 40 mg, By Mouth, Daily, # 30 tablet, 0 Refills, Maintenance, 11/17/19 4:22:00 EDT, Tablet Start Date: 11/17/19 Status: Orderedlevothyroxine 0.137 mg oral tablet 1 tablet, By Mouth, Daily, # 90 tablet, 0 Refills, Maintenance, 01/30/20 14:58:00 EST, [facility], 143, cm, 01/14/20 22:55:00 EDT, Height, 101, kg, 01/14/20 22:55:00 EDT, Dry Weight Start Date: 01/30/20 Status: Orderedmagnesium oxide 400 mg oral tablet 1 tablet, By Mouth, Daily, # 90 tablet, 3 Refills, [facility], 143, cm, 04/02/21 3:19:00 EST, Height, 96.2, kg, 04/02/21 3:19:00 EST, Dry Weight Start Date: 04/08/21 Status: Orderedmontelukast 10 mg oral tablet 10 mg, 1, tablet, By Mouth, Daily in PM, # 30 tablet, Refills 0, Maintenance, 11/17/19 4:22:00 EDT Start Date: 11/17/19 Status: OrderedoxyCODONE 5 mg oral tablet 5 mg, Tablet, By Mouth, Once, PRN for Pain , Severe, Routine, 07/11/21 14:51:00 EDT Start Date: 07/11/21 Stop Date: 07/11/21 Status: Completedpantoprazole 20 mg oral delayed release tablet TAKE [...] 0 Refills, Maintenance, 04/01/21 23:03:00EST, CR Capsule, [facility]/pharmacy #[id number], Partial fill upon patient request if the [...] 5 Refills, Maintenance, 05/15/21 14:16:00 EST, Powder, [facility]/pharmacy #[id number], Partial fill upon patient request if the prescription is fora schedule II opioid drug., 143, cm, 05/15/21 14:... Start Date: 05/15/21 Stop Date: 11/11/21 Status: OrderedTrulance 3 mg oral tablet See Instructions, TAKE 1 TABLET BY MOUTH EVERY DAY, # 30 tablet, 3 Refills, [facility] 04737, 142, cm, 06/23/21 21:09:00 EDT, Height, 92.5, [...] Saturation [94-100 %] 96 % 95 % 98 % (07/11/21 12:13 PM) (07/11/21 7:49 AM) (07/11/21 2: 49 AM) Pulse Rate [55-90 bpm] 90 bpm 95 bpm 93 bpm (07/11/21 12:13 PM) *H* *H* (07/11/21 7:49 AM) (07/11/21 2:49 AM) Blood Pressure [90-138/55-84 131/87 mm Hg 139/81 mm Hg 122 /80 mm Hg mm Hg] (07/11/21 12:13 PM) *H* (07/11/21 2:49 AM) (07/11/21 7:49 AM) Respiratory Rate [16-30 18 br/min 16 br/min 16 br/mi n br/min] (07/11/21 2:50 PM) (07/11/21 12:13 PM) (07/11/21 7: 49 AM) Temperature [96.8-100.4 DegF] 98.9 DegF 99.6 DegF (07/10/21 11:21 PM) (07/10/21 4:27 PM) Mode of Delivery (Oxygen) Room air Room air Room a ir (07/11/21 12:13 PM) (07/11/21 7:49 AM) (07/11/21 2: 49 AM) Blood pressure sites Arm, left Arm, left Arm, left (07/11/21 12:13 PM) (07/11/21 7:49 AM) (07/11/21 2: 49 AM) Temperature Route Oral Oral (07/10/21 11:21 PM) (07/10/21 4:27 PM) Social History Social History Type Response Smoking Status Never (less than 100 in life time) entered on: 01/01/20 Sex
--- OUTSIDE RECORDS SUMMARY | 2021-12-30 21:50 | XMS_ITS | Continuity of Care Document ---
:1970 Author Organization [facility] Address [address] [place] [address]- Care Team Providers Name Role Phone Pbjonas Nasima FAITH Primary Care Physician [place] [facility] [place] 09/30/20 - 10/01/[address] [address]- Encounter Diagnosis Abdominal pain, diffuse (Final) - 10/01/20 Discharge Disposition: A-D/C Home Attending Physician: Rama Hagan MD Admitting Physician: Rama Hagan MD Referring Physician: Not on Staff, Referring MD Allergies, Adverse Reactions, Alerts Substance Reaction Severity Status sulfADIAZINE Rash Active penicillins Rash Active Keflex Rash Active Diamox1 C/O: itching Persistent Moderate Active droperidol Anaphylactic reaction Persistent Severe Active Toradol Active Glutens rash Active 1itchy Immunizations Given and Recorded Vaccine Date Status Refusal Reason tetanus/diphtheria/pertussis, acel(Tdap) 08/16/20 Given tetanus/diphtheria/pertussis, acel(Tdap)1 02/19/13 Record ed influenza virus vaccine, inactivated 03/31/19 Given influenza virus vaccine, inactivated 12/04/17 Recorded pneumococcal 23-valent vaccine2 08/28/15 Recorded Not Given Vaccine Date Status Refusal Reason pneumococcal 23-valent vaccine3 01/04/18 Not Given Patient Refuses 1Result Comment: [05/03/2018] [id number] Comment: [05/03/2018] [id number] Note: pt stated she did not want to receive vaccine today, may want later Medications albuterol-ipratropium 3 mg-0.5 mg/3 ml inhalation solution 3 mL, Inhalation, 4 times a day, # 360 mL, 1 Refills, Maintenance, 12/13/19 8:19:00 EDT, Inhalation Solution, [facility], 3 mL Inhalation 4 [...] capsule, 3 Refills, Maintenance, 09/28/20 7:41:00 EDT, [facility]/pharmacy #[id number], 143, cm, 09/20/20 19:45:00 EDT, Height, 106.6, kg, 09/20/20 19:45:00 EDT, Dry Weight Start Date: 09/28/20 Stop Date: 01/26/21 Status: Orderedduloxetine 60 mg oral enteric coated capsule 1 capsule, By Mouth, Daily, # 30 capsule, 0 Refills, Maintenance, 11/21/19 12:43:00 EDT, [facility], 142, cm, 11/16/19 8:05:00 EDT, Height, 90.7, kg, 10/11/19 1:24:00 EDT, Dry Weight Start Date: 11/21/19 Status: OrderedDupixent 300 mg/2 mL subcutaneous solution 0 Refills, Maintenance, 11/17/19 4:27:00 EDT Start Date: 11/17/19 Status: Orderedfluticasone 50 mcg/inh nasal spray 1 sprays, Nares, Both, 2 times a day, 0 Refills, Maintenance, 11/17/19 4:21:00 EDT, [place] Start Date: 11/17/19 Status: Orderedlamotrigine 25 mg oral tablet 25 mg, 1, tablet, By Mouth, 2 times a day, # 60 tablet, Refills 0, Maintenance, 11/17/19 4:23:00 EDT Start Date: 11/17/19 Status: OrderedLasix 20 mg oral tablet 20 mg, 1, tablet, By Mouth, Daily, # 7 tablet, Refills 0, Tot. Refills 0, Maintenance, 07/15/20 22:03:00 EDT, Route to Pharmacy Electronically, [facility]/pharmacy #[id number], Partial fill upon patient request if the [...] tablet, 0 Refills, Maintenance, 01/30/20 14:58:00 EST, [facility] 266[facility], 143, cm, 01/14/20 22:55:00 EDT, Height, 101, kg, 01/14/20 22:55:00 EDT, Dry Weight Start Date: 01/30/20 Status: Orderedlidocaine 4% topical film 1 patch, Topically, Daily, # 30 patch, 0 Refills, Maintenance, 01/06/20 10:41:00 EDT, Film, [facility] 3, 142, cm, 01/06/20 8:20:00 EDT, Height, 103, kg, 01/04/20 18:55:00 EDT, Dry Weight Start Date: 01/06/20 Stop Date: 02/05/20 Status: Orderedmagnesium oxide 400 mg (240 mg elemental magnesium) oral tablet 1 tablet, By Mouth, Daily, # 90 tablet, 3 Refills, Acute, 04/10/20 10:44:00 EST, [facility], 90, TAKE 1 TABLET BY MOUTH EVERY [...] 0 Refills, Maintenance, 12/19/19 13:39:00 EDT, Tablet, [facility]/pharmacy #[id number], 142, cm, 12/15/19 7:46:00 EDT, Height, [...] 3 Refills, Maintenance, 01/10/20 7:53:00 EDT, Capsule, [facility]/pharmacy #0859, 142, cm, 01/08/20 22:31:00 EDT, Height, [...] 2 3 Range]: Oxygen Saturation [94-100 %] 97 % 100 % 95 % (10/01/20 5:35 AM) (10/01/20 3:21 AM) (09/30/20 11:25 PM) Pulse Rate [55-90 bpm] 76 bpm 88 bpm 72 bpm (10/01/20 5:35 AM) (10/01/20 3:21 AM) (09/30/20 11:25 PM) Blood Pressure [90-138/55-84 mm 124/109 mm Hg 118/75 mm Hg 113/70 mm Hg Hg] (10/01/20 5:35 AM) (10/01/20 3:21 AM) (09/30/20 11:25 PM) Respiratory Rate [16-30 br/min] 16 br/min 16 br/min 15 br/min (10/01/20 5:35 AM) (10/01/20 3:21 AM) *L* (09/30/20 11:25 PM ) Temperature [96.8-100.4 DegF] 97.8 DegF 98.0 DegF 98 .1 DegF (10/01/20 5:35 AM) (10/01/20 3:21 AM) (09/30/20 11:25 PM) Mode of Delivery (Oxygen) Room air Room air Room a ir (10/01/20 5:35 AM) (10/01/20 3:21 AM) (09/30/20 11:25 PM) Blood pressure sites Arm, right Arm, right Arm, right (10/01/20 5:35 AM) (10/01/20 3:21 AM) (09/30/20 11:25 PM) Temperature Route Oral Oral Oral (10/01/20 5:35 AM) (10/01/20 3:21 AM) (09/30/20 11:25 PM) Social History Social History Type Response Smoking Status Never (less than 100 in life time) entered on: 01/01/20 Sex
--- OUTSIDE RECORDS SUMMARY | 2021-12-30 21:50 | XMS_ITS | Continuity of Care Document ---
:1970 Author Organization [facility] Address [address] [place] [address]- Care Team Providers Name Role Phone Cristal OROZCO, Edie Segovia Primary Care Physician [phone] [place] [facility] [place] - 05/24/[address] [address]- Allergies, Adverse Reactions, Alerts Substance Reaction Severity [...] Not Given Patient Refuses 1Result Comment: [05/03/2018] [id number] Comment: [05/03/2018] [id number] Note: pt stated she did not want to receive vaccine today, may want later Medications Apriso 0.375 g oral capsule, extended release 4 capsule = 1.5 Gm, By Mouth, Daily in AM, # 120 capsule, 4 Refills, Maintenance, 04/01/21 11:02:00 EST, CR Capsule, [id number], Partial fill upon patient request if the [...] Refills, Maintenance, 11/21/19 12:43:00 EDT, [facility], 142, cm, 11/16/19 8:05:00 EDT, Height, 90.7, kg, 10/11/19 1:24:00 EDT, Dry Weight Start Date: 11/21/19 Status: OrderedDupixent 300 mg/2 mL subcutaneous solution Every 14 days, 0 Refills, Maintenance, 11/17/19 4:27:00 EDT Start Date: 11/17/19 Status: Orderedfluticasone 50 mcg/inh nasal spray 1 sprays, Nares, Both, 2 times a day, 0 Refills, Maintenance, 11/17/19 4:21:00 EDT, [place] Start Date: 11/17/19 Status: OrderedLatuda 40 mg oral tablet 1 tablet = 40 mg, By Mouth, Daily, # 30 tablet, 0 Refills, Maintenance, 11/17/19 4:22:00 EDT, Tablet Start Date: 11/17/19 Status: Orderedlevothyroxine 0.137 mg oral tablet 1 tablet, By Mouth, Daily, # 90 tablet, 0 Refills, Maintenance, 01/30/20 14:58:00 EST, [facility], 143, cm, 01/14/20 22:55:00 EDT, Height, 101, kg, 01/14/20 22:55:00 EDT, Dry Weight Start Date: 01/30/20 Status: Orderedmagnesium oxide 400 mg oral tablet 1 tablet, By Mouth, Daily, # 90 tablet, 3 Refills, [facility], 143, cm, 04/02/21 3:19:00 EST, Height, 96.2, [...] 0 Refills, Maintenance, 04/01/21 23:03:00EST, CR Capsule, [facility]/pharmacy #[id number], Partial fill upon patient request if [...] tablet, 0 Refills, Maintenance, 04/12/21 11:53:00 EST, [facility]/pharmacy #[id number], Partial fill upon patient request if [...] tablet, 0 Refills,Maintenance, 04/01/21 23:03:00 EST, Tablet, [facility]/pharmacy #[id number], Partial fill upon patient request ifthe [...]
--- OUTSIDE RECORDS SUMMARY | 2021-12-30 21:50 | XMS_ITS | Continuity of Care Document ---
:1970 Author Organization [facility] Address [address] [place] [address]- Care Team Providers Name Role Phone Edei Bee MD Primary Care Physician [phone] Encounter [facility] [id number] Date(s): 05/14/21 - 06/13/21 [facility] [address], [place] [address] Allergies, Adverse Reactions, Alerts Substance Reaction [...] Not Given Patient Refuses 1Result Comment: [05/03/2018] [id number] Comment: [05/03/2018] [id number] Note: pt stated she did not want to receive vaccine today, may want later Medications Apriso 0.375 g oral capsule, extended release 4 capsule = 1.5 Gm, By Mouth, Daily in AM, # 120 capsule, 4 Refills, Maintenance, 04/01/21 11:02:00 EST, CR Capsule, [id number], Partial fill upon patient request if the [...] 05/29/21 18:11:00 EST, Route to Pharmacy Electronically, [facility] [...] Refills, Maintenance, 11/21/19 12:43:00 EDT, [facility], 142, cm, 11/16/19 8:05:00 EDT, Height, 90.7, kg, 10/11/19 1:24:00 EDT, Dry Weight Start Date: 11/21/19 Status: OrderedDupixent 300 mg/2 mL subcutaneous solution Every 14 days, 0 Refills, Maintenance, 11/17/19 4:27:00 EDT Start Date: 11/17/19 Status: Orderedfluticasone 50 mcg/inh nasal spray 1 sprays, Nares, Both, 2 times a day, 0 Refills, Maintenance, 11/17/19 4:21:00 EDT, [place] Start Date: 11/17/19 Status: OrderedLatuda 40 mg oral tablet 1 tablet = 40 mg, By Mouth, Daily, # 30 tablet, 0 Refills, Maintenance, 11/17/19 4:22:00 EDT, Tablet Start Date: 11/17/19 Status: Orderedlevothyroxine 0.137 mg oral tablet 1 tablet, By Mouth, Daily, # 90 tablet, 0 Refills, Maintenance, 01/30/20 14:58:00 EST, [facility], 143, cm, 01/14/20 22:55:00 EDT, Height, 101, kg, 01/14/20 22:55:00 EDT, Dry Weight Start Date: 01/30/20 Status: Orderedmagnesium oxide 400 mg oral tablet 1 tablet, By Mouth, Daily, # 90 tablet, 3 Refills, [facility] 354[facility], 143, cm, 04/02/21 3:19:00 EST, Height, 96.2, [...] 5 Refills, Maintenance, 05/15/21 14:16:00 EST, Powder, [facility]/pharmacy #[id number], Partial fill upon patient request if the prescription is fora schedule II opioid drug., 143, cm, 05/15/21 14:... Start Date: 05/15/21 Stop Date: 11/11/21 Status: OrderedZofran 4 mg oral tablet 1 tablet = 4 mg, By Mouth, Every 8 hours, PRN as needed for nausea/vomiting, # 15 tablet, 0 Refills,Maintenance, 04/01/21 23:03:00 EST, Tablet, [facility]/pharmacy #[id number], Partial fill [...]
--- OUTSIDE RECORDS SUMMARY | 2021-12-30 21:51 | XMS_ITS | Continuity of Care Document ---
:1970 Author Organization [facility] Address [address] [place] [address]- Care Team Providers Name Role Phone Not on Staff, PCP Primary Care Physician Unavailable Encounter [facility] Date(s): 02/26/21 - 03/28/[address] [address]- Allergies, Adverse Reactions, Alerts Substance Reaction Severity [...] Not Given Patient Refuses 1Result Comment: [05/03/2018] [id number] Comment: [05/03/2018] [id number] Note: pt stated she did not want to receive vaccine today, may want later Medications Apriso 0.375 g oral capsule, extended release 4 capsule = 1.5 Gm, By Mouth, Daily in AM, # 120 capsule, 4 Refills, Maintenance, 12/04/20 10:31:00 EDT, CR Capsule, [id number], Partial fill upon patient request if the [...] 1 Refills, Maintenance, 12/23/19 16:02:00 EDT, [facility]/pharmacy #[id number], 142, cm, [...] 1 Refills, Maintenance, 12/02/19 14:20:00 EDT, [facility]/pharmacy #[id number], 1 tablet [...] 3 Refills, Maintenance, 09/28/20 7:41:00 EDT, [facility]/pharmacy #[id number], 143, cm, 09/20/20 19:45:00 EDT, Height, 106.6, kg, 09/20/20 19:45:00 EDT, Dry Weight Start Date: 09/28/20 Stop Date: 01/26/21 Status: Ordereddoxycycline hyclate 100 mg oral capsule 1 capsule = 100 mg, By Mouth, 2 times a day, for 10 days, # 20 capsule, 0 Refills, Acute 04/04/21 20:38:00 EST, 03/25/21 20:38:00 EST, Capsule, [facility]/pharmacy #[id number], Partial fill upon patient request if the prescription is for a schedule II opioid drug.... Start Date: 03/25/21 Stop Date: 04/04/21 Status: Orderedduloxetine 60 mg oral enteric coated capsule 1 capsule, By Mouth, Daily, # 30 capsule, 0 Refills, Maintenance, 11/21/19 12:43:00 EDT, [facility], 142, cm, 11/16/19 8:05:00 EDT, Height, 90.7, kg, 10/11/19 1:24:00 EDT, Dry Weight Start Date: 11/21/19 Status: OrderedDupixent 300 mg/2 mL subcutaneous solution Every 14 days, 0 Refills, Maintenance, 11/17/19 4:27:00 EDT Start Date: 11/17/19 Status: Orderedfluticasone 50 mcg/inh nasal spray 1 sprays, Nares, Both, 2 times a day, 0 Refills, Maintenance, 11/17/19 4:21:00 EDT, [place] Start Date: 11/17/19 Status: Orderedlamotrigine 25 mg [...] tablet, 0 Refills, Maintenance, 01/30/20 14:58:00 EST, [facility] STORE 82820, 143, cm, 01/14/20 22:55:00 EDT, Height, 101, kg, 01/14/20 22:55:00 EDT, Dry Weight Start Date: 01/30/20 Status: Orderedlidocaine 4% topical film 1 patch, Topically, Daily, # 30 patch, 0 Refills, Maintenance, 01/06/20 10:41:00 EDT, Film, [facility] 3, 142, cm, 01/06/20 8:20:00 EDT, Height, 103, kg, 01/04/20 18:55:00 EDT, Dry Weight Start Date: 01/06/20 Stop Date: 02/05/20 Status: Orderedlidocaine 5% topical film 1 patch, Topically, Daily, PRN Pain , Mild, remove after 12 hours, # 13 each, 0 Refills, Maintenance, 11/04/20 23:32:00 EDT, Film, [facility]/pharmacy #[id number], Partial fill upon patient request if the prescription is for a schedule II opioid drug., 1 patch Top... Start Date: 11/04/20 Status: Orderedmagnesium oxide 400 mg (240 mg elemental magnesium) oral tablet 1 tablet, By Mouth, Daily, # 90 tablet, 3 Refills, Acute, 04/10/20 10:44:00 EST, [facility] STORE 90781, 90, TAKE 1 TABLET BY MOUTH EVERY [...] Refills, Maintenance, 12/19/19 13:39:00 EDT, Tablet, [facility]/pharmacy #[id number], 142, cm, [...]
--- OUTSIDE RECORDS SUMMARY | 2021-12-30 21:51 | XMS_ITS | Continuity of Care Document ---
:1970 Author Organization [facility] Address [address] [place] [address]- Care Team Providers Name Role Phone Fidel Sheffield MD, Mohan Primary Care Physician Encounter [facility] Date(s): 06/09/19 - 06/19/[address] [address]- [facility] Attending Physician: Vinny Cornejo Admitting Physician: AdmVinny [...] Not Given Patient Refuses 1Result Comment: [05/03/2018] [id number] Comment: [05/03/2018] [id number] Note: pt stated she did not want [...] capsule, 3 Refills, Maintenance, 04/19/19 13:22:00EST, Capsule, [facility]/pharmacy #[id number], 142, cm, 04/15/19 9:03:00 EST, Height, [...] 11:00:00 EDT, 04/01/19 13:49:00 EST, EC Tablet, [facility]/pharmacy #[id number], 142, cm, 04/01/19 11:22:00 EST, Height, 92.6, kg, 03/30/19 10:30:00 EST, Dry Weight Start Date: 04/01/19 Stop Date: 07/07/19 Status: Orderedduloxetine 60 mg oral enteric coated capsule = 120 mg, By Mouth, Daily, 0 Refills, Maintenance, 10/04/18 11:34:58 EDT, Capsule Start Date: 10/04/18 Status: OrderedDupixent Subcutaneous Infusion, Once, 0 Refills, Maintenance, 05/30/19 15:33:00 EST Start Date: 05/30/19 Status: Orderedlidocaine 4% topical film 1 patch, Topically, Daily, for 5 days, # 6 each, 0 Refills, Acute 06/20/19 19:01:00 EDT, 06/15/19 19:01:00 EDT, Film, [facility]/pharmacy #[id number], 1 patch Topically Daily,x5 days, 143, cm, 06/09/19 7:23:00 EDT,Height, 91, kg, 06/06/19 18:37:00 EDT, Dry Weight Start Date: 06/15/19 Stop Date: 06/20/19 Status: Orderedmagnesium citrate 8.85% oral liquid 150 mL = 8.725 Gm, By Mouth, Once, # 300 mL, 0 Refills, Soft Stop, 04/28/19 17:14:00 EST, Liquid, [facility]/pharmacy #[id number], 150 mL By Mouth Once, 142, cm, 04/28/19 9:05:00 EST, Height, 92.6, kg, 03/30/19 10:30:00 EST, Dry Weight Start Date: 04/28/19 Status: OrderedMiraLax oral powder for reconstitution = 17 Gm, By Mouth, Daily, dissolve in water before taking, # 255 Gm, 1 Refills, Acute 06/23/19 11:00:00 EDT, 04/01/19 13:47:00 EST, REC Powder, [facility]/pharmacy #[id number], 17 Gm By Mouth Daily,Instr:dissolve in [...] tablet, 0 Refills, Maintenance, 06/12/19 22:03:00 EDT, [facility]/pharmacy #[id number], 143, cm, 06/09/19 7:23:00 EDT, Height, [...]
--- OUTSIDE RECORDS SUMMARY | 2021-12-30 21:51 | XMS_ITS | Continuity of Care Document ---
:1970 Author Organization [facility] Address [address] [place] [id number]- Care Team Providers Name Role Phone Rama Rodriguez NP Primary Care Physician Encounter [facility] R [id number] Date(s): 10/26/20 - 11/29/20 [facility] [address] [place] [id number] Attending Physician: Jack De La Cruz DO Admitting Physician: Jack De La Cruz DO Allergies, Adverse Reactions, Alerts Substance Reaction [...] Not Given Patient Refuses 1Result Comment: [05/03/2018] [id number] Comment: [05/03/2018] [id number] Note: pt stated she did not want to receive vaccine today, may want later Medications albuterol-ipratropium 3 mg-0.5 mg/3 ml inhalation solution 3 mL, Inhalation, 4 times a day, # 360 mL, 1 Refills, Maintenance, 12/13/19 8:19:00 EDT, Inhalation Solution, [facility], 3 mL Inhalation 4 [...] tablet, 1 Refills, Maintenance, 12/23/19 16:02:00 EDT, [facility]/pharmacy #[id number], 142, cm, 12/15/19 7:46:00 EDT, [...] tablet, 1 Refills, Maintenance, 12/02/19 14:20:00 EDT, [facility]/pharmacy #[id number], 1 tablet By Mouth Daily, [...] capsule, 3 Refills, Maintenance, 09/28/20 7:41:00 EDT, [facility]/pharmacy #[id number], 143, cm, 09/20/20 19:45:00 EDT, Height, 106.6, kg, 09/20/20 19:45:00 EDT, Dry Weight Start Date: 09/28/20 Stop Date: 01/26/21 Status: Orderedduloxetine 60 mg oral enteric coated capsule 1 capsule, By Mouth, Daily, # 30 capsule, 0 Refills, Maintenance, 11/21/19 12:43:00 EDT, [facility] STORE 52224, 142, cm, 11/16/19 8:05:00 EDT, Height, 90.7, kg, 10/11/19 1:24:00 EDT, Dry Weight Start Date: 11/21/19 Status: OrderedDupixent 300 mg/2 mL subcutaneous solution Every 14 days, 0 Refills, Maintenance, 11/17/19 4:27:00 EDT Start Date: 11/17/19 Status: Orderedfluticasone 50 mcg/inh nasal spray 1 sprays, Nares, Both, 2 times a day, 0 Refills, Maintenance, 11/17/19 4:21:00 EDT, [place] Start Date: 11/17/19 Status: Orderedlamotrigine 25 [...] tablet, 0 Refills, Maintenance, 01/30/20 14:58:00 EST, [facility] STORE [address]3372, 143, cm, 01/14/20 22:55:00 EDT, Height, 101, kg, 01/14/20 22:55:00 EDT, Dry Weight Start Date: 01/30/20 Status: Orderedlidocaine 4% topical film 1 patch, Topically, Daily, # 30 patch, 0 Refills, Maintenance, 01/06/20 10:41:00 EDT, Film, [facility] 3, 142, cm, 01/06/20 8:20:00 EDT, Height, 103, kg, 01/04/20 18:55:00 EDT, Dry Weight Start Date: 01/06/20 Stop Date: 02/05/20 Status: Orderedlidocaine 5% topical film 1 patch, Topically, Daily, PRN Pain , Mild, remove after 12 hours, # 13 each, 0 Refills, Maintenance, 11/04/20 23:32:00 EDT, Film, [facility]/pharmacy #[id number], Partial fill upon patient request if the prescription is for a schedule II opioid drug., 1 patch Top... Start Date: 11/04/20 Status: Orderedmagnesium oxide 400 mg (240 mg elemental magnesium) oral tablet 1 tablet, By Mouth, Daily, # 90 tablet, 3 Refills, Acute, 04/10/20 10:44:00 EST, [facility] STORE 58954, 90, TAKE 1 TABLET BY MOUTH EVERY [...] 0 Refills, Maintenance, 12/19/19 13:39:00 EDT, Tablet, [facility]/pharmacy #[id number], 142, cm, 12/15/19 7:46:00 EDT, [...]
--- OUTSIDE RECORDS SUMMARY | 2021-12-30 21:51 | XMS_ITS | Continuity of Care Document ---
:1970 Author Organization [facility] Address [address] [place] [address]- Care Team Providers Name Role Phone Not on Staff, PCP Primary Care Physician Unavailable Encounter [facility] Date(s): 08/02/20 - 09/01/[address] [address]- Attending Physician: Vinny Cornejo Admitting Physician: AdmVinny [...] Not Given Patient Refuses 1Result Comment: [05/03/2018] [id number] Comment: [05/03/2018] [id number] Note: pt stated she did not want to receive vaccine today, may want later Medications albuterol-ipratropium 3 mg-0.5 mg/3 ml inhalation solution 3 mL, Inhalation, 4 times a day, # 360 mL, 1 Refills, Maintenance, 12/13/19 8:19:00 EDT, Inhalation Solution, [facility], 3 mL Inhalation 4 times a day, 141, cm, 12/07/19 12:18:00 EDT, Height, 100.5, kg, 12/05/19 3:32:00 EDT, Dry Weight Start Date: 12/13/19 Status: OrderedAzithromycin 5 Day Dose Pack 250 mg oral tablet 1 pack/packet, By Mouth, Once, # 6 tablet, 0 Refills, Soft Stop, 06/27/20 15:07:00 EDT, Tablet, [facility]/pharmacy #[id number], Partial fill [...] 01/06/20 10:18:00 EDT, Route to Pharmacy Electronically, [facility], 142, cm, 01/06/20 8:20:00EDT, Height, 103, kg, 01/04/20 18:55:00 EDT, Dry... Start Date: 01/06/20 Status: Orderedcetirizine 10 mg oral tablet 1 tablet, By Mouth, Daily, # 90 tablet, 1 Refills, Maintenance, 12/23/19 16:02:00 EDT, [facility]/pharmacy #[id number], 142, cm, 12/15/19 7:46:00 [...] 1 Refills, Maintenance, 12/02/19 14:20:00 EDT, [facility]/pharmacy #[id number], 1 tablet By Mouth [...] capsule, 3 Refills, Maintenance, 06/30/20 12:45:00 EDT, [facility]/pharmacy #[id number], 142, cm, 06/27/20 14:47:00 EDT, Height, 100, kg, 06/18/20 15:45:00 EDT, Dry Weight Start Date: 06/30/20 Stop Date: 10/28/20 Status: Orderedduloxetine 60 mg oral enteric coated capsule 1 capsule, By Mouth, Daily, # 30 capsule, 0 Refills, Maintenance, 11/21/19 12:43:00 EDT, [facility], 142, cm, 11/16/19 8:05:00 EDT, Height, 90.7, kg, 10/11/19 1:24:00 EDT, Dry Weight Start Date: 11/21/19 Status: OrderedDupixent 300 mg/2 mL subcutaneous solution 0 Refills, Maintenance, 11/17/19 4:27:00 EDT Start Date: 11/17/19 Status: Orderedfluticasone 50 mcg/inh nasal spray 1 sprays, Nares, Both, 2 times a day, 0 Refills, Maintenance, 11/17/19 4:21:00 EDT, [place] Start Date: 11/17/19 Status: Orderedlamotrigine 25 mg oral tablet 25 mg, 1, tablet, By Mouth, 2 times a day, # 60 tablet, Refills 0, Maintenance, 11/17/19 4:23:00 EDT Start Date: 11/17/19 Status: OrderedLasix 20 mg oral tablet 20 mg, 1, tablet, By Mouth, Daily, # 7 tablet, Refills 0, Tot. Refills 0, Maintenance, 07/15/20 22:03:00 EDT, Route to Pharmacy Electronically, [facility]/pharmacy #[id number], Partial fill upon patient request if the [...] tablet, 0 Refills, Maintenance, 01/30/20 14:58:00 EST, [facility] STORE 96743, 143, cm, 01/14/20 22:55:00 EDT, Height, 101, kg, 01/14/20 22:55:00 EDT, Dry Weight Start Date: 01/30/20 Status: Orderedlidocaine 4% topical film 1 patch, Topically, Daily, # 30 patch, 0 Refills, Maintenance, 01/06/20 10:41:00 EDT, Film, [facility] 3, 142, cm, 01/06/20 8:20:00 EDT, Height, 103, kg, 01/04/20 18:55:00 EDT, Dry Weight Start Date: 01/06/20 Stop Date: 02/05/20 Status: Orderedmagnesium oxide 400 mg (240 mg elemental magnesium) oral tablet 1 tablet, By Mouth, Daily, # 90 tablet, 3 Refills, Acute, 04/10/20 10:44:00 EST, [facility] STORE [facility]1325, 90, TAKE 1 TABLET BY MOUTH EVERY DAY, 143, cm, 03/27/20 7:23:00 EST, Height, 101, kg, 01/14/20 22:55:00EDT, Dry Weight Start Date: 04/10/20 Status: Orderedmeloxicam 7.5 mg oral tablet 1 tablet, By Mouth, Daily, # 30 tablet, 0 Refills, Maintenance, 11/23/19 18:18:00 EDT, [facility], 142, cm, 11/16/19 8:05:00 EDT, Height, 90.7, [...] tablet, 0 Refills,Maintenance, 06/08/20 22:23:00 EST, Tablet, [facility]/pharmacy #[id number], Partial fill [...]
--- OUTSIDE RECORDS SUMMARY | 2021-12-30 21:51 | XMS_ITS | Continuity of Care Document ---
:1970 Author Organization [facility] Address [address] [place] [address]- Care Team Providers Name Role Phone Edie Bee MD Primary Care Physician Encounter [facility] Date(s): 05/20/21 - 05/21/[address] [address]- Encounter Diagnosis Depression (Final) - 05/21/21 Discharge Disposition: A-D/C Home Attending Physician: Devyn Krause MD Admitting Physician: Devyn Krause MD Referring Physician: Not on Staff, Referring [...] Not Given Patient Refuses 1Result Comment: [05/03/2018] [id number] Comment: [05/03/2018] [id number] Note: pt stated she did not want [...] tablet, 1 Refills, Maintenance, 12/23/19 16:02:00 EDT, [facility]/pharmacy #[id number], 142, cm, 12/15/19 [...] tablet, 1 Refills, Maintenance, 12/02/19 14:20:00 EDT, [facility]/pharmacy #[id number], 1 tablet By Mouth [...] Refills, Maintenance, 11/21/19 12:43:00 EDT, [facility], 142, cm, 11/16/19 8:05:00 EDT, Height, 90.7, kg, 10/11/19 1:24:00 EDT, Dry Weight Start Date: 11/21/19 Status: OrderedDupixent 300 mg/2 mL subcutaneous solution Every 14 days, 0 Refills, Maintenance, 11/17/19 4:27:00 EDT Start Date: 11/17/19 Status: Orderedfluticasone 50 mcg/inh nasal spray 1 sprays, Nares, Both, 2 times a day, 0 Refills, Maintenance, 11/17/19 4:21:00 EDT, [place] Start Date: 11/17/19 Status: OrderedLatuda 40 mg oral tablet 1 tablet = 40 mg, By Mouth, Daily, # 30 tablet, 0 Refills, Maintenance, 11/17/19 4:22:00 EDT, Tablet Start Date: 11/17/19 Status: Orderedlevothyroxine 0.137 mg oral tablet 1 tablet, By Mouth, Daily, # 90 tablet, 0 Refills, Maintenance, 01/30/20 14:58:00 EST, [facility], 143, cm, 01/14/20 22:55:00 EDT, Height, 101, kg, 01/14/20 22:55:00 EDT, Dry Weight Start Date: 01/30/20 Status: Orderedmagnesium oxide 400 mg oral tablet 1 tablet, By Mouth, Daily, # 90 tablet, 3 Refills, [facility], 143, cm, 04/02/21 3:19:00 EST, Height, 96.2, [...] 0 Refills, Maintenance, 04/01/21 23:03:00EST, CR Capsule, [facility]/pharmacy #[id number], Partial [...] 05/23/21 14:15:00 EST, 05/15/21 14:15:00 EST, Tablet, [facility]/pharmacy #[id number], [place]... Start Date: 05/15/21 Stop Date: [...] oldest 1 2 3 [Reference Range]: Height 145 cm 145 cm 145 cm (05/21/21 8:52 AM) (05/21/21 5:34 AM) (05/21/21 2:5 1 AM) Weight 93 kg 93 kg 93 kg (05/21/21 8:52 AM) (05/21/21 5:34 AM) (05/21/21 2:5 1 AM) Oxygen Saturation [94-100 %] 99 % 100 % 100 % (05/21/21 8:52 AM) (05/21/21 5:34 AM) (05/21/21 2:5 1 AM) Pulse Rate [55-90 bpm] 88 bpm 79 bpm 87 bpm (05/21/21 8:52 AM) (05/21/21 5:34 AM) (05/21/21 2:5 1 AM) Body Mass Index [18.5-24.99] 44.23 44.23 44. 23 *>HHI* *>HHI* *>HHI* (05/21/21 8:52 AM) (05/21/21 5:34 AM) (05/21/21 2:5 1 AM) Blood Pressure [90-138/55-84 134/89 mm Hg 125/69 mm Hg 126 /79 mm Hg mm Hg] (05/21/21 8:52 AM) (05/21/21 5:34 AM) (05/21/21 2:5 1 AM) Respiratory Rate [16-30 16 br/min 20 br/min 20 br/mi n br/min] (05/21/21 8:52 AM) (05/21/21 5:34 AM) (05/21/21 2:5 1 AM) Temperature [96.8-100.4 DegF] 98.5 DegF 98.8 DegF 98 .8 DegF (05/21/21 8:52 AM) (05/21/21 5:34 AM) (05/21/21 2:5 1 AM) Mode of Delivery (Oxygen) Room air Room air Room a ir (05/21/21 8:52 AM) (05/21/21 5:34 AM) (05/21/21 2:5 1 AM) Blood pressure sites Arm, right Arm, right Arm, right (05/21/21 5:34 AM) (05/21/21 2:51 AM) (05/21/21 12: 13 AM) Temperature Route Oral Oral Oral (05/21/21 8:52 AM) (05/21/21 5:34 AM) (05/21/21 2:5 1 AM) Social History Social History Type Response Smoking Status Never (less than 100 in life time) entered on: 01/01/20 Sex
--- OUTSIDE RECORDS SUMMARY | 2021-12-30 21:51 | XMS_ITS | Continuity of Care Document ---
:1970 Author Organization [facility] Address [address] [address]- Care Team Providers Name Role Phone Pbjonas Nasima FAITH Primary Care Physician Encounter [facility] Date(s): 04/06/20 - 05/06/20 [facility] [address] [place] [id number] Allergies, Adverse Reactions, Alerts Substance Reaction [...] Not Given Patient Refuses 1Result Comment: [05/03/2018] [id number] Comment: [05/03/2018] [id number] Note: pt stated she did not want to receive vaccine today, may want later Medications albuterol-ipratropium 3 mg-0.5 mg/3 ml inhalation solution 3 mL, Inhalation, 4 times a day, # 360 mL, 1 Refills, Maintenance, 12/13/19 8:19:00 EDT, Inhalation Solution, [facility], 3 mL Inhalation 4 [...] 01/06/20 10:18:00 EDT, Route to Pharmacy Electronically, [facility], 142, cm, 01/06/20 8:20:00EDT, Height, 103, kg, 01/04/20 18:55:00 EDT, Dry... Start Date: 01/06/20 Status: Orderedcetirizine 10 mg oral tablet 1 tablet, By Mouth, Daily, # 90 tablet, 1 Refills, Maintenance, 12/23/19 16:02:00 EDT, [facility]/pharmacy #[id number], 142, cm, 12/15/19 7:46:00 EDT, Height, [...] Refills, Maintenance, 12/02/19 14:20:00 EDT, [facility]/pharmacy #[id number], 1 tablet By Mouth Daily, 142, [...] 0 Refills, Maintenance, 11/21/19 12:43:00 EDT, [facility] STORE [address]486, 142, cm, 11/16/19 8:05:00 EDT, Height, 90.7, kg, 10/11/19 1:24:00 EDT, Dry Weight Start Date: 11/21/19 Status: OrderedDupixent 300 mg/2 mL subcutaneous solution 0 Refills, Maintenance, 11/17/19 4:27:00 EDT Start Date: 11/17/19 Status: Orderedfluticasone 50 mcg/inh nasal spray 1 sprays, Nares, Both, 2 times a day, 0 Refills, Maintenance, 11/17/19 4:21:00 EDT, [place] Start Date: 11/17/19 Status: Orderedlamotrigine 25 mg [...] tablet, 0 Refills, Maintenance, 01/30/20 14:58:00 EST, [facility] STORE 32434, 143, cm, 01/14/20 22:55:00 EDT, Height, 101, kg, 01/14/20 22:55:00 EDT, Dry Weight Start Date: 01/30/20 Status: Orderedlidocaine 4% topical film 1 patch, Topically, Daily, # 30 patch, 0 Refills, Maintenance, 01/06/20 10:41:00 EDT, Film, [facility] 3, 142, cm, 01/06/20 8:20:00 EDT, Height, 103, kg, 01/04/20 18:55:00 EDT, Dry Weight Start Date: 01/06/20 Stop Date: 02/05/20 Status: Orderedmagnesium oxide 400 mg (240 mg elemental magnesium) oral tablet 1 tablet, By Mouth, Daily, # 90 tablet, 3 Refills, Acute, 04/10/20 10:44:00 EST, [facility] STORE 16611, 90, TAKE 1 TABLET BY MOUTH EVERY DAY, 143, cm, 03/27/20 7:23:00 EST, Height, 101, kg, 01/14/20 22:55:00EDT, Dry Weight Start Date: 04/10/20 Status: Orderedmeloxicam 7.5 mg oral tablet 1 tablet, By Mouth, Daily, # 30 tablet, 0 Refills, Maintenance, 11/23/19 18:18:00 EDT, [facility] STORE 69985, 142, cm, 11/16/19 8:05:00 EDT, Height, 90.7, [...] Dry Weight Start Date: 04/11/20 Status: Orderednystatin 783176 u/ml oral suspension 1 mL = 100,000 units, By Mouth, 4 times a day, # 30 mL, 0 Refills, Maintenance, 11/17/19 4:28:00 EDT, [place] Start Date: 11/17/19 Status: Orderedondansetron 4 mg oral tablet 1 tablet = 4 mg, By Mouth, Every 8 hours, PRN Nausea & Vomiting, # 10 tablet, 0 Refills, Maintenance, 12/19/19 13:39:00 EDT, Tablet, [facility]/pharmacy #[id number], 142, cm, 12/15/19 7:46:00 EDT, Height, [...] Refills, Maintenance, 01/10/20 7:53:00 EDT, Capsule, [facility]/pharmacy #[id number], 142, cm, 01/08/20 22:31:00 EDT, Height, [...]
--- OUTSIDE RECORDS SUMMARY | 2021-12-30 21:51 | XMS_ITS | Continuity of Care Document ---
:1970 Author Organization [facility] Address [address] [place] [address]- Care Team Providers Name Role Phone Cristal OROZCO, Edie Segovia Primary Care Physician [place] [facility] [place]s): 10/29/21 - 11/28/21 [facility] [address] [place] [id number] Allergies, Adverse Reactions, Alerts Substance Reaction Severity Status sulfADIAZINE Rash Active droperidol Anaphylactic reaction Persistent Severe Active penicillins Rash Active Toradol1, 2 Active Keflex Rash Active Glutens rash Active 1abd upset with [id number] upset Immunizations Given and Recorded Vaccine Date [...] Not Given Patient Refuses 1Result Comment: [05/03/2018] [id number] Comment: [05/03/2018] [id number] Note: pt stated she did not want to receive vaccine today, may want later Medications amLODIPine 5 mg oral tablet 0 Refills, Maintenance, 11/20/21 9:10:00 EDT, Partial fill upon patient request if the prescription is for a schedule II opioid drug. Start Date: 11/20/21 Status: Orderedbuprenorphine 20 mcg/hr transdermal film, extended release 0 Refills, Maintenance, 01/10/21 8:38:00 EDT, Partial fill upon patient request if the prescription is for a schedule II opioid drug. Start Date: 01/10/21 Status: Orderedcetirizine 10 mg oral tablet 1 tablet, By Mouth, Daily, # 90 tablet, 1 Refills, Maintenance, 12/23/19 16:02:00 EDT, [facility]/pharmacy #[id number], 142, cm, 12/15/19 [...] 05/29/21 18:11:00 EST, Route to Pharmacy Electronically, [facility]/pharmacy #[id number], Partial fill upon patient request if the prescriptio... Start Date: 05/29/21 Status: OrderedDaily-Madi with Iron oral tablet 1 tablet, By Mouth, Daily, # 90 tablet, 1 Refills, Maintenance, 12/02/19 14:20:00 EDT, [facility]/pharmacy #[id number], 1 tablet By [...] NEEDED FOR ABDOMINAL CRAMPS, # 90 capsule, 1 Refills, 11/19/21 7:55:00 EDT, [facility], 142, cm, 10/22/21 16:16:00 EDT, Height, 90.8, kg, 10/22/21 16:16:00 EDT, Dry Weight Start Date: 11/19/21 Status: Orderedduloxetine 60 mg oral enteric coated capsule 1 capsule, By Mouth, Daily, # 30 capsule, 0 Refills, Maintenance, 11/21/19 12:43:00 EDT, [facility] STORE 19401, 142, cm, 11/16/19 8:05:00 EDT, Height, 90.7, kg, 10/11/19 1:24:00 EDT, Dry Weight Start Date: 11/21/19 Status: OrderedDupixent 300 mg/2 mL subcutaneous solution Every 14 days, 0 Refills, Maintenance, 11/17/19 4:27:00 EDT Start Date: 11/17/19 Status: Orderedfluticasone 50 mcg/inh nasal spray 1 sprays, Nares, Both, 2 times a day, 0 Refills, Maintenance, 11/17/19 4:21:00 EDT, [place] Start Date: 11/17/19 Status: OrderedImodium A-D 2 mg oral tablet 2 mg, 1, tablet, By Mouth, Every 4 hours, PRN, # 10 tablet, Refills 0, Tot. Refills 0, Maintenance, for loose stool, 07/27/21 19:52:00 EDT, Route to Pharmacy Electronically, [facility]/pharmacy #[id number], Partialfill upon patient request if the prescription is... Start Date: 07/27/21 Status: Orderedindomethacin 25 mg oral capsule 1 capsule = 25 mg, By Mouth, 3 times a day, PRN for arthritis, with food or milk, # 21 capsule, 0 Refills, Maintenance, 09/03/21 11:42:00 EDT, Capsule, [facility], Partial fill upon patient request [...] tablet, 0 Refills, Maintenance, 01/30/20 14:58:00 EST, [facility] STORE 12224, 143, cm, 01/14/20 22:55:00 EDT, Height, 101, kg, 01/14/20 22:55:00 EDT, Dry Weight Start Date: 01/30/20 Status: Orderedlidocaine 5% topical film 1 patch, Topically, Daily, PRN Pain , Mild, remove after 12 hours, # 13 each, 0 Refills, Maintenance, 08/22/21 22:17:00 EDT, Film, [facility]/pharmacy #[id number], Partial fill upon patient request if the prescription is for a schedule II opioid drug., 1 patch Top... Start Date: 08/22/21 Status: Orderedmagnesium oxide 400 mg oral tablet 1 tablet, By Mouth, Daily, # 90 tablet, 3 Refills, [facility], 143, cm, 04/02/21 3:19:00 EST, Height, 96.2, kg, 04/02/21 3:19:00 EST, Dry Weight Start Date: 04/08/21 Status: Orderedmesalamine 0.375 g oral capsule, extended release 4 capsule, By Mouth, Daily in AM, # 120 capsule, 4 Refills, 10/04/21 16:26:00 EDT, [facility], 142, cm, 09/04/21 17:25:00 EDT, Height, 91.25, kg, 09/04/21 17:25:00 EDT, Dry Weight Start Date: 10/04/21 Status: Orderedmontelukast 10 mg oral tablet 10 [...] 5 Refills, Maintenance, 05/15/21 14:16:00 EST, Powder, [facility]/pharmacy #[id number], Partial fill upon patient request if the prescription is fora schedule II opioid drug., 143, cm, 05/15/21 14:... Start Date: 05/15/21 Stop Date: 11/11/21 Status: OrderedTrulance 3 mg oral tablet 1 tablet, By Mouth, Daily, # 30 tablet, 2 Refills, Maintenance, 11/21/21 18:20:00 EDT, [facility], 142, cm, 11/20/21 9:07:00 EDT, Height, 90.8, kg, 10/22/21 16:16:00 EDT, Dry Weight Start Date: 11/21/21 Status: OrderedVitamin D3 1000 intl units oral tablet 1 tablet = 1,000 International_Units, By Mouth, Daily, 1 tablet = 1,000 International Units, By Mouth, Daily. 90 day supply, # 90 tablet, 3 Refills, Maintenance, 03/16/20 16:49:00 EST, Tablet, [facility]/pharmacy #[id number], 143, cm, 02/29/20 9:09:00 EST, Height... Start Date: 03/16/20 Status: OrderedZofran 4 mg oral tablet 1 tablet = 4 mg, By Mouth, Every 8 hours, PRN as needed for nausea/vomiting, # 15 tablet, 0 Refills,Maintenance, 04/01/21 23:03:00 EST, Tablet, [id number], Partial fill upon patient request ifthe prescription [...] in life time) entered on: 01/01/20 Sex Care Team PersonnelName: Edie Bee MD Address: [address] [place] [address]-
--- OUTSIDE RECORDS SUMMARY | 2021-12-30 21:51 | XMS_ITS | Continuity of Care Document ---
:1970 Author Organization [facility] Address [address] [place] [address]- Care Team Providers Name Role Phone Edie Bee MD Primary Care Physician [phone] [facility]counter [facility] Date[facility]s): 06/24/21 - 06/24/[address] [address]- Discharge Disposition: A-D/C Home Attending Physician: Benjamin [...] Not Given Patient Refuses 1Result Comment: [05/03/2018] [id number] Comment: [05/03/2018] [id number] Note: pt stated she did not want to receive vaccine today, may want later Medications Apriso 0.375 g oral capsule, extended release 4 capsule = 1.5 Gm, By Mouth, Daily in AM, # 120 capsule, 4 Refills, Maintenance, 04/01/21 11:02:00 EST, CR Capsule, [id number], Partial fill upon patient request if the [...] tablet, 1 Refills, Maintenance, 12/23/19 16:02:00 EDT, [facility]/pharmacy #[id number], 142, cm, 12/15/19 [...] 05/29/21 18:11:00 EST, Route to Pharmacy Electronically, [facility]/pharmacy #[id number], Partial fill upon [...] Refills, Maintenance, 11/21/19 12:43:00 EDT, [facility], 142, cm, 11/16/19 8:05:00 EDT, Height, 90.7, kg, 10/11/19 1:24:00 EDT, Dry Weight Start Date: 11/21/19 Status: OrderedDupixent 300 mg/2 mL subcutaneous solution Every 14 days, 0 Refills, Maintenance, 11/17/19 4:27:00 EDT Start Date: 11/17/19 Status: Orderedfluticasone 50 mcg/inh nasal spray 1 sprays, Nares, Both, 2 times a day, 0 Refills, Maintenance, 11/17/19 4:21:00 EDT, [place] Start Date: 11/17/19 Status: OrderedLatuda 40 mg oral tablet 1 tablet = 40 mg, By Mouth, Daily, # 30 tablet, 0 Refills, Maintenance, 11/17/19 4:22:00 EDT, Tablet Start Date: 11/17/19 Status: Orderedlevothyroxine 0.137 mg oral tablet 1 tablet, By Mouth, Daily, # 90 tablet, 0 Refills, Maintenance, 01/30/20 14:58:00 EST, [facility], 143, cm, 01/14/20 22:55:00 EDT, Height, 101, kg, 01/14/20 22:55:00 EDT, Dry Weight Start Date: 01/30/20 Status: Orderedmagnesium oxide 400 mg oral tablet 1 tablet, By Mouth, Daily, # 90 tablet, 3 Refills, [facility], 143, cm, 04/02/21 3:19:00 EST, Height, 96.2, [...] OrderedpredniSONE 5 mg oral tablet See Instructions, 09/02-5/5-4/4-3/3-2/2-1/1 tablets 2 days each, # 42 tablet, [...] 5 Refills, Maintenance, 05/15/21 14:16:00 EST, [place], [facility]/pharmacy #[id number], Partial fill upon [...] Saturation [94-100 %] 96 % 97 % 96 % (06/24/21 10:45 PM) (06/24/21 7:45 PM) (06/24/21 5: 46 PM) Pulse Rate [55-90 bpm] 83 bpm 81 bpm 84 bpm (06/24/21 10:45 PM) (06/24/21 7:45 PM) (06/24/21 5: 46 PM) Blood Pressure [90-138/55-84 104/70 mm Hg 108/79 mm Hg 128 /74 mm Hg mm Hg] (06/24/21 10:45 PM) (06/24/21 7:45 PM) (06/24/21 5: 46 PM) Respiratory Rate [16-30 18 br/min 18 br/min 18 br/mi n br/min] (06/24/21 10:45 PM) (06/24/21 7:45 PM) (06/24/21 5: 46 PM) Temperature [96.8-100.4 DegF] 98.2 DegF 98.3 DegF (06/24/21 5:46 PM) (06/24/21 2:30 PM) Mode of Delivery (Oxygen) Room air Room air Room a ir (06/24/21 10:45 PM) (06/24/21 7:45 PM) (06/24/21 5: 46 PM) Blood pressure sites Arm, left Arm, left (06/24/21 5:46 PM) (06/24/21 2:30 PM) Temperature Route Oral Oral (06/24/21 5:46 PM) (06/24/21 2:30 PM) Social History Social History Type Response Smoking Status Never (less than 100 in life time) entered on: 01/01/20 Sex
--- OUTSIDE RECORDS SUMMARY | 2021-12-30 21:51 | XMS_ITS | Continuity of Care Document ---
:1970 Author Organization [facility] Address [address] [place] [address]- Care Team Providers Name Role Phone Edie Bee MD Primary Care Physician [phone] [facility]counter [facility] Date(s): 05/28/21 - 05/29/[address] [address]- Encounter Diagnosis Abdominal pain (Final) - 05/29/21 Discharge Disposition: A-D/C Home Attending Physician: Sherif Morales MD Admitting Physician: Sherif Morales MD Referring Physician: Not on Staff, Referring MD Allergies, Adverse Reactions, Alerts Substance Reaction Severity Status sulfADIAZINE Rash Active penicillins Rash Active Keflex Rash Active droperidol Anaphylactic reaction Persistent Severe Active Toradol Active Glutens rash Active Immunizations Given and Recorded Vaccine Date Status Refusal Reason tetanus/diphtheria/pertussis, acel(Tdap) 08/16/20 Given tetanus/diphtheria/pertussis, acel(Tdap)1 02/19/13 Record ed influenza virus vaccine, inactivated 03/31/19 Given influenza virus vaccine, inactivated 12/04/17 Recorded pneumococcal 23-valent vaccine2 08/28/15 Recorded Not Given Vaccine Date Status Refusal Reason pneumococcal 23-valent vaccine3 01/04/18 Not Given Patient Refuses 1Result Comment: [05/03/2018] [id number] Comment: [05/03/2018] [id number] Note: pt stated she did not want [...] tablet, 1 Refills, Maintenance, 12/23/19 16:02:00 EDT, [facility]/pharmacy #[id number], 142, cm, 12/15/19 7:46:00 EDT, Height, [...] 05/29/21 18:11:00 EST, Route to Pharmacy Electronically, [facility]/pharmacy #[id number], Partial fill upon patient request if [...] Refills, Maintenance, 11/21/19 12:43:00 EDT, [facility], 142, cm, 11/16/19 8:05:00 EDT, Height, 90.7, kg, 10/11/19 1:24:00 EDT, Dry Weight Start Date: 11/21/19 Status: OrderedDupixent 300 mg/2 mL subcutaneous solution Every 14 days, 0 Refills, Maintenance, 11/17/19 4:27:00 EDT Start Date: 11/17/19 Status: Orderedfluticasone 50 mcg/inh nasal spray 1 sprays, Nares, Both, 2 times a day, 0 Refills, Maintenance, 11/17/19 4:21:00 EDT, [place] Start Date: 11/17/19 Status: OrderedLatuda 40 mg oral tablet 1 tablet = 40 mg, By Mouth, Daily, # 30 tablet, 0 Refills, Maintenance, 11/17/19 4:22:00 EDT, Tablet Start Date: 11/17/19 Status: Orderedlevothyroxine 0.137 mg oral tablet 1 tablet, By Mouth, Daily, # 90 tablet, 0 Refills, Maintenance, 01/30/20 14:58:00 EST, [facility], 143, cm, 01/14/20 22:55:00 EDT, Height, 101, kg, 01/14/20 22:55:00 EDT, Dry Weight Start Date: 01/30/20 Status: Orderedmagnesium oxide 400 mg oral tablet 1 tablet, By Mouth, Daily, # 90 tablet, 3 Refills, [facility], 143, cm, 04/02/21 3:19:00 EST, Height, 96.2, [...] 0 Refills, Maintenance, 04/01/21 23:03:00EST, CR Capsule, [facility]/pharmacy #[id number], Partial fill upon patient request if [...] oldest 1 2 3 [Reference Range]: Height 155 cm 155 cm (05/29/21 12:05 AM) (05/28/21 10:08 PM) Weight 100 kg 100 kg (05/29/21 12:05 AM) (05/28/21 10:08 PM) Oxygen Saturation [94-100 %] 97 % 96 % 98 % (05/29/21:17 AM) (05/29/21 12:05 AM) (05/28/21 10:08 PM) Pulse Rate [55-90 bpm] 80 bpm 85 bpm 85 bpm (05/29/21:17 AM) (05/29/21 12:05 AM) (05/28/21 10:08 PM) Body Mass Index [18.5-24.99] 41.62 *>HHI* (05/29/21 12:05 AM) Blood Pressure [90-138/55-84 mm 128/74 mm Hg 125/75 mm Hg 120/82 mm Hg Hg] (05/29/21 3:17 AM) (05/29/21 12:05 AM) (05/28/21 10:08 PM) Respiratory Rate [16-30 br/min] 20 br/min 20 br/min 18 br/min (05/29/21 3:17 AM) (05/29/21 12:05 AM) (05/28/21 10:08 PM) Temperature [96.8-100.4 DegF] 97.5 DegF 98.4 DegF 98 .4 DegF (05/29/21 12:05 AM) (05/28/21 10:08 PM) (05/28/21 8:29 PM) Mode of Delivery (Oxygen) Room air Room air Room a ir (05/29/21 3:17 AM) (05/29/21 12:05 AM) (05/28/21 10:08 PM) Blood pressure sites Arm, left Arm, left Arm, left (05/29/21 3:17 AM) (05/29/21 12:05 AM) (05/28/21 10:08 PM) Temperature Route Oral Oral Oral (05/29/21 12:05 AM) (05/28/21 10:08 PM) (05/28/21 8:29 PM) Dry Weight 100 kg 100 kg (05/29/21 12:05 AM) (05/28/21 10:08 PM) Social History Social History Type Response Smoking Status Never (less than 100 in life time) entered on: 01/01/20 Sex
--- OUTSIDE RECORDS SUMMARY | 2021-12-30 21:51 | XMS_ITS | Continuity of Care Document ---
:1970 Author Organization [facility] Address [address] [place] [address], [address] Floor, [address] [place] [address]- Care Team Providers Name Role Phone Pbjonas Nasima FAITH Primary Care Physician [facility] Date(s): 09/03/20 - 10/03/20 [facility] [address] [facility], 3rd Floor, [address] [place] [address]- Allergies, Adverse Reactions, Alerts Substance Reaction Severity [...] Not Given Patient Refuses 1Result Comment: [05/03/2018] [id number] Comment: [05/03/2018] [id number] Note: pt stated she did not want to receive vaccine today, may want later Medications albuterol-ipratropium 3 mg-0.5 mg/3 ml inhalation solution 3 mL, Inhalation, 4 times a day, # 360 mL, 1 Refills, Maintenance, 12/13/19 8:19:00 EDT, Inhalation Solution, [facility], 3 mL Inhalation 4 times a day, 141, cm, 12/07/19 12:18:00 EDT, Height, 100.5, kg, 12/05/19 3:32:00 EDT, Dry Weight Start Date: 12/13/19 Status: OrderedApriso 0.375 g oral capsule, extended release 4 capsule = 1.5 Gm, By Mouth, Daily in AM, # 120 capsule, 4 Refills, Maintenance, 09/07/20 8:50:00 EDT, CR Capsule, [facility]/pharmacy #[id number], Partial fill upon patient [...] capsule, 3 Refills, Maintenance, 09/28/20 7:41:00 EDT, [facility]/pharmacy #[id number], 143, cm, 09/20/20 19:45:00 EDT, Height, 106.6, kg, 09/20/20 19:45:00 EDT, Dry Weight Start Date: 09/28/20 Stop Date: 01/26/21 Status: Orderedduloxetine 60 mg oral enteric coated capsule 1 capsule, By Mouth, Daily, # 30 capsule, 0 Refills, Maintenance, 11/21/19 12:43:00 EDT, [facility] ST[facility] 22531, 142, cm, 11/16/19 8:05:00 EDT, Height, 90.7, kg, 10/11/19 1:24:00 EDT, Dry Weight Start Date: 11/21/19 Status: OrderedDupixent 300 mg/2 mL subcutaneous solution 0 Refills, Maintenance, 11/17/19 4:27:00 EDT Start Date: 11/17/19 Status: Orderedfluticasone 50 mcg/inh nasal spray 1 sprays, Nares, Both, 2 times a day, 0 Refills, Maintenance, 11/17/19 4:21:00 EDT, [place] Start Date: 11/17/19 Status: Orderedlamotrigine 25 mg oral tablet 25 mg, 1, tablet, By Mouth, 2 times a day, # 60 tablet, Refills 0, Maintenance, 11/17/19 4:23:00 EDT Start Date: 11/17/19 Status: OrderedLasix 20 mg oral tablet 20 mg, 1, tablet, By Mouth, Daily, # 7 tablet, Refills 0, Tot. Refills 0, Maintenance, 07/15/20 22:03:00 EDT, Route to Pharmacy Electronically, [facility]/pharmacy #[id number], Partial fill upon patient [...] tablet, 0 Refills, Maintenance, 01/30/20 14:58:00 EST, [facility], 143, cm, 01/14/20 22:55:00 EDT, Height, 101, kg, 01/14/20 22:55:00 EDT, Dry Weight Start Date: 01/30/20 Status: Orderedlidocaine 4% topical film 1 patch, Topically, Daily, # 30 patch, 0 Refills, Maintenance, 01/06/20 10:41:00 EDT, Film, [facility] 3, 142, cm, 01/06/20 8:20:00 EDT, Height, 103, kg, 01/04/20 18:55:00 EDT, Dry Weight Start Date: 01/06/20 Stop Date: 02/05/20 Status: Orderedmagnesium oxide 400 mg (240 mg elemental magnesium) oral tablet 1 tablet, By Mouth, Daily, # 90 tablet, 3 Refills, Acute, 04/10/20 10:44:00 EST, [facility], 90, TAKE 1 TABLET BY MOUTH EVERY [...] Refills, Maintenance, 12/19/19 13:39:00 EDT, Tablet, [facility]/pharmacy #[id number], 142, cm, 12/15/19 7:46:00 [...] 3 Refills, Maintenance, 01/10/20 7:53:00 EDT, Capsule, [facility]/pharmacy #[id number], 142, cm, 01/08/20 22:31:00 [...]
--- OUTSIDE RECORDS SUMMARY | 2021-12-30 21:51 | XMS_ITS | Continuity of Care Document ---
:1970 Author Organization [facility] Address Unavailable , Care Team Providers Name Role Phone Nasima Narayan DO Primary Care Physician [facility] Date[facility]s): 01/17/21 - 01/24/21 [facility] Encounter Diagnosis Morbid obesity with BMI of 50.0-59.9, adult (Discharge Diagnosis) - 01/17/21 Attending Physician: Armen Claros Referring Physician: Nasima Narayan DO Allergies, Adverse [...] Not Given Patient Refuses 1Result Comment: [05/03/2018] [id number] Comment: [05/03/2018] [id number] Note: pt stated she did not want to receive vaccine today, may want later Medications albuterol-ipratropium 3 mg-0.5 mg/3 ml inhalation solution 3 mL, Inhalation, 4 times a day, # 360 mL, 1 Refills, Maintenance, 12/13/19 8:19:00 EDT, Inhalation Solution, [facility], 3 mL Inhalation 4 times a day, 141, cm, 12/07/19 12:18:00 EDT, Height, 100.5, kg, 12/05/19 3:32:00 EDT, Dry Weight Start Date: 12/13/19 Status: OrderedApriso 0.375 g oral capsule, extended release 4 capsule = 1.5 Gm, By Mouth, Daily in AM, # 120 capsule, 4 Refills, Maintenance, 12/04/20 10:31:00 EDT, CR Capsule, [facility]/pharmacy #[id number], Partial fill upon patient request [...] tablet, 1 Refills, Maintenance, 12/23/19 16:02:00 EDT, [facility]/pharmacy #[id number], 142, cm, 12/15/19 7:46:00 EDT, [...] tablet, 1 Refills, Maintenance, 12/02/19 14:20:00 EDT, [facility]/pharmacy #[id number], 1 tablet By Mouth Daily, [...] capsule, 3 Refills, Maintenance, 09/28/20 7:41:00 EDT, [facility]/pharmacy #[id number], 143, cm, 09/20/20 19:45:00 EDT, Height, 106.6, kg, 09/20/20 19:45:00 EDT, Dry Weight Start Date: 09/28/20 Stop Date: 01/26/21 Status: Orderedduloxetine 60 mg oral enteric coated capsule 1 capsule, By Mouth, Daily, # 30 capsule, 0 Refills, Maintenance, 11/21/19 12:43:00 EDT, [facility] ST[facility] 83582, 142, cm, 11/16/19 8:05:00 EDT, Height, 90.7, kg, 10/11/19 1:24:00 EDT, Dry Weight Start Date: 11/21/19 Status: OrderedDupixent 300 mg/2 mL subcutaneous solution Every 14 days, 0 Refills, Maintenance, 11/17/19 4:27:00 EDT Start Date: 11/17/19 Status: Orderedfluticasone 50 mcg/inh nasal spray 1 sprays, Nares, Both, 2 times a day, 0 Refills, Maintenance, 11/17/19 4:21:00 EDT, [place] Start Date: 11/17/19 Status: Orderedlamotrigine 25 mg [...] tablet, 0 Refills, Maintenance, 01/30/20 14:58:00 EST, [facility], 143, cm, 01/14/20 22:55:00 EDT, Height, 101, kg, 01/14/20 22:55:00 EDT, Dry Weight Start Date: 01/30/20 Status: Orderedlidocaine 4% topical film 1 patch, Topically, Daily, # 30 patch, 0 Refills, Maintenance, 01/06/20 10:41:00 EDT, Film, [facility] 3, 142, cm, 01/06/20 8:20:00 EDT, Height, 103, kg, 01/04/20 18:55:00 EDT, Dry Weight Start Date: 01/06/20 Stop Date: 02/05/20 Status: Orderedlidocaine 5% topical film 1 patch, Topically, Daily, PRN Pain , Mild, remove after 12 hours, # 13 each, 0 Refills, Maintenance, 11/04/20 23:32:00 EDT, Film, [facility]/pharmacy #[id number], Partial fill upon patient request if the prescription is for a schedule II opioid drug., 1 patch Top... Start Date: 11/04/20 Status: Orderedmagnesium oxide 400 mg (240 mg elemental magnesium) oral tablet 1 tablet, By Mouth, Daily, # 90 tablet, 3 Refills, Acute, 04/10/20 10:44:00 EST, [facility] 12[facility], 90, TAKE 1 TABLET BY MOUTH EVERY [...] Dates Health Status Clinical In formant Service Morbid obesity Discharge 01/17/21 with BMI of Diagnosis 50.0-59.9, adult Vital Signs Most recent to oldest [Reference Range]: 1 Height 142 cm (01/17/21 8:45 AM) Weight 103.9 kg (01/17/21 8:45 AM) Pulse Rate [55-90 bpm] 71 bpm (01/17/21 8:45 AM) Body Mass Index [18.5-24.99] 51.53 *>HHI* (01/17/21 8:45 AM) Blood Pressure [90-138/55-84 mm Hg] 131/88 mm Hg (01/17/21 8:45 AM) Respiratory Rate [16-30 br/min] 17 br/min (01/17/21 8:45 AM) Temperature [96.8-100.4 DegF] 97.8 DegF (01/17/21 8:45 AM) Social History Social History Type Response Smoking Status Never (less than 100 in life time) entered on: 01/01/20 Sex
--- OUTSIDE RECORDS SUMMARY | 2021-12-30 21:51 | XMS_ITS | Continuity of Care Document ---
:1970 Author Organization [facility] Address [address] [place] [address]- Care Team Providers Name Role Phone Nasima Narayan DO Primary Care Physician Encounter [facility] Date(s): 10/29/20 - 11/28/20 [facility] [address] [place] [address]- Allergies, Adverse Reactions, Alerts Substance Reaction Severity [...] Not Given Patient Refuses 1Result Comment: [05/03/2018] [id number] Comment: [05/03/2018] [id number] Note: pt stated she did not want to receive vaccine today, may want later Medications albuterol-ipratropium 3 mg-0.5 mg/3 ml inhalation solution 3 mL, Inhalation, 4 times a day, # 360 mL, 1 Refills, Maintenance, 12/13/19 8:19:00 EDT, Inhalation Solution, [facility], 3 mL Inhalation 4 [...] tablet, 1 Refills, Maintenance, 12/23/19 16:02:00 EDT, [facility]/pharmacy #[id number], 142, cm, 12/15/19 7:46:00 EDT, [...] Refills, Maintenance, 11/21/19 12:43:00 EDT, [facility], 142, cm, 11/16/19 8:05:00 EDT, Height, 90.7, kg, 10/11/19 1:24:00 EDT, Dry Weight Start Date: 11/21/19 Status: OrderedDupixent 300 mg/2 mL subcutaneous solution Every 14 days, 0 Refills, Maintenance, 11/17/19 4:27:00 EDT Start Date: 11/17/19 Status: Orderedfluticasone 50 mcg/inh nasal spray 1 sprays, Nares, Both, 2 times a day, 0 Refills, Maintenance, 11/17/19 4:21:00 EDT, [place] Start Date: 11/17/19 Status: Orderedlamotrigine 25 mg [...] Refills, Maintenance, 01/30/20 14:58:00 EST, [facility], 143, cm, 01/14/20 22:55:00 EDT, Height, 101, kg, 01/14/20 22:55:00 EDT, Dry Weight Start Date: 01/30/20 Status: Orderedlidocaine 4% topical film 1 patch, Topically, Daily, # 30 patch, 0 Refills, Maintenance, 01/06/20 10:41:00 EDT, Film, [facility], 142, cm, 01/06/20 8:20:00 EDT, Height, 103, kg, 01/04/20 18:55:00 EDT, Dry Weight Start Date: 01/06/20 Stop Date: 02/05/20 Status: Orderedlidocaine 5% topical film 1 patch, Topically, Daily, PRN Pain , Mild, remove after 12 hours, # 13 each, 0 Refills, Maintenance, 11/04/20 23:32:00 EDT, Film, [facility]/pharmacy #[id number], Partial fill upon patient request if the prescription is for a schedule II opioid drug., 1 patch Top... Start Date: 11/04/20 Status: Orderedmagnesium oxide 400 mg (240 mg elemental magnesium) oral tablet 1 tablet, By Mouth, Daily, # 90 tablet, 3 Refills, Acute, 04/10/20 10:44:00 EST, [facility] STORE 56562, 90, TAKE 1 TABLET BY MOUTH EVERY [...] Refills, Maintenance, 12/19/19 13:39:00 EDT, Tablet, [facility]/pharmacy #[id number], 142, cm, 12/15/19 7:46:00 EDT, [...]
--- OUTSIDE RECORDS SUMMARY | 2021-12-30 21:51 | XMS_ITS | Continuity of Care Document ---
:1970 Author Organization [facility] Address [address] [place] [address]- Care Team Providers Name Role Phone Long Rama MORALES Primary Care Physician Encounter [facility] Date(s): 11/13/20 - 12/13/20 [facility] [address] [place] [address]- Attending Physician: Vinny Cornejo Admitting Physician: Admtr ArAdalid Referring Physician: Admtr, Ar8 Allergies, Adverse Reactions, [...] Not Given Patient Refuses 1Result Comment: [05/03/2018] [id number] Comment: [05/03/2018] [id number] Note: pt stated she did not want to receive vaccine today, may want later Medications albuterol-ipratropium 3 mg-0.5 mg/3 ml inhalation solution 3 mL, Inhalation, 4 times a day, # 360 mL, 1 Refills, Maintenance, 12/13/19 8:19:00 EDT, Inhalation Solution, [facility], 3 mL Inhalation 4 times a day, 141, cm, 12/07/19 12:18:00 EDT, Height, 100.5, kg, 12/05/19 3:32:00 EDT, Dry Weight Start Date: 12/13/19 Status: OrderedApriso 0.375 g oral capsule, extended release 4 capsule = 1.5 Gm, By Mouth, Daily in AM, # 120 capsule, 4 Refills, Maintenance, 12/04/20 10:31:00 EDT, CR Capsule, [facility]/pharmacy #[id number], Partial fill upon patient request if [...] capsule, 3 Refills, Maintenance, 09/28/20 7:41:00 EDT, [facility]/pharmacy #[id number], 143, cm, 09/20/20 19:45:00 EDT, Height, 106.6, kg, 09/20/20 19:45:00 EDT, Dry Weight Start Date: 09/28/20 Stop Date: 01/26/21 Status: Orderedduloxetine 60 mg oral enteric coated capsule 1 capsule, By Mouth, Daily, # 30 capsule, 0 Refills, Maintenance, 11/21/19 12:43:00 EDT, [facility], 142, cm, 11/16/19 8:05:00 EDT, Height, 90.7, kg, 10/11/19 1:24:00 EDT, Dry Weight Start Date: 11/21/19 Status: OrderedDupixent 300 mg/2 mL subcutaneous solution Every 14 days, 0 Refills, Maintenance, 11/17/19 4:27:00 EDT Start Date: 11/17/19 Status: Orderedfluticasone 50 mcg/inh nasal spray 1 sprays, Nares, Both, 2 times a day, 0 Refills, Maintenance, 11/17/19 4:21:00 EDT, [place] Start Date: 11/17/19 Status: Orderedlamotrigine 25 mg [...] tablet, 0 Refills, Maintenance, 01/30/20 14:58:00 EST, [facility] STORE 89798, 143, cm, 01/14/20 22:55:00 EDT, Height, 101, kg, 01/14/20 22:55:00 EDT, Dry Weight Start Date: 01/30/20 Status: Orderedlidocaine 4% topical film 1 patch, Topically, Daily, # 30 patch, 0 Refills, Maintenance, 01/06/20 10:41:00 EDT, Film, [facility] 3, 142, cm, 01/06/20 8:20:00 EDT, Height, 103, kg, 01/04/20 18:55:00 EDT, Dry Weight Start Date: 01/06/20 Stop Date: 02/05/20 Status: Orderedlidocaine 5% topical film 1 patch, Topically, Daily, PRN Pain , Mild, remove after 12 hours, # 13 each, 0 Refills, Maintenance, 11/04/20 23:32:00 EDT, Film, [facility]/pharmacy #[id number], Partial fill upon patient request if the prescription is for a schedule II opioid drug., 1 patch Top... Start Date: 11/04/20 Status: Orderedmagnesium oxide 400 mg (240 mg elemental magnesium) oral tablet 1 tablet, By Mouth, Daily, # 90 tablet, 3 Refills, Acute, 04/10/20 10:44:00 EST, [facility] 37340, 90, TAKE 1 TABLET BY MOUTH EVERY [...]
--- OUTSIDE RECORDS SUMMARY | 2021-12-30 21:52 | XMS_ITS | Continuity of Care Document ---
:1970 Author Organization [facility] Address [address] [place] [address]- Care Team Providers Name Role Phone Cristal OROZCO, Edie Segovia Primary Care Physician [place] [facility] [place] 07/[place]/21 - 08/21/21 [facility] [address] [place] [address]- [place] Allergies, Adverse Reactions, Alerts Substance Reaction Severity Status sulfADIAZINE Rash Active droperidol Anaphylactic reaction Persistent Severe Active penicillins Rash Active Toradol1, 2 Active Keflex Rash Active Glutens rash Active 1abd upset with [id number] upset Immunizations Given and Recorded Vaccine Date [...] Not Given Patient Refuses 1Result Comment: [05/03/2018] [id number] Comment: [05/03/2018] [id number] Note: pt stated she did not want to receive vaccine today, may want later Medications Apriso 0.375 g oral capsule, extended release 4 capsule = 1.5 Gm, By Mouth, Daily in AM, # 120 capsule, 4 Refills, Maintenance, 04/01/21 11:02:00 EST, CR Capsule, [facility]/pharmacy #[id number], Partial [...] 05/29/21 18:11:00 EST, Route to Pharmacy Electronically, [facility]/pharmacy #[id number], Partial fill upon patient request if the prescriptio... Start Date: 05/29/21 Status: OrderedDaily-Madi with Iron oral tablet 1 tablet, By Mouth, Daily, # 90 tablet, 1 Refills, Maintenance, 12/02/19 14:20:00 EDT, [facility]/pharmacy #[id number], 1 tablet By Mouth Daily, [...] Refills, Maintenance, 11/21/19 12:43:00 EDT, [facility], 142, cm, 11/16/19 8:05:00 EDT, Height, 90.7, kg, 10/11/19 1:24:00 EDT, Dry Weight Start Date: 11/21/19 Status: OrderedDupixent 300 mg/2 mL subcutaneous solution Every 14 days, 0 Refills, Maintenance, 11/17/19 4:27:00 EDT Start Date: 11/17/19 Status: Orderedfluticasone 50 mcg/inh nasal spray 1 sprays, Nares, Both, 2 times a day, 0 Refills, Maintenance, 11/17/19 4:21:00 EDT, [place] Start Date: 11/17/19 Status: OrderedImodium A-D 2 mg oral tablet 2 mg, 1, tablet, By Mouth, Every 4 hours, PRN, # 10 tablet, Refills 0, Tot. Refills 0, Maintenance, for loose stool, 07/27/21 19:52:00 EDT, Route to Pharmacy Electronically, [facility]/pharmacy #[id number], Partialfill upon patient request if the prescription is... Start Date: 07/27/21 Status: OrderedLatuda 40 mg oral tablet 1 tablet = 40 mg, By Mouth, Daily, # 30 tablet, 0 Refills, Maintenance, 11/17/19 4:22:00 EDT, Tablet Start Date: 11/17/19 Status: Orderedlevothyroxine 0.137 mg oral tablet 1 tablet, By Mouth, Daily, # 90 tablet, 0 Refills, Maintenance, 01/30/20 14:58:00 EST, [facility], 143, cm, 01/14/20 22:55:00 EDT, Height, 101, kg, 01/14/20 22:55:00 EDT, Dry Weight Start Date: 01/30/20 Status: Orderedmagnesium oxide 400 mg oral tablet 1 tablet, By Mouth, Daily, # 90 tablet, 3 Refills, [facility], 143, cm, 04/02/21 3:19:00 EST, Height, 96.2, [...] 0 Refills, Maintenance, 04/01/21 23:03:00EST, CR Capsule, [facility]/pharmacy #[id number], Partial fill upon patient request if the [...]
--- OUTSIDE RECORDS SUMMARY | 2021-12-30 21:52 | XMS_ITS | Continuity of Care Document ---
:1970 Author Organization [facility] [place] Address [address] [place] [address]- Care Team Providers Name Role Phone Edie Bee MD Primary Care Physician Encounter [facility] Date(s): 08/09/21 - 09/08/21 [facility] [place] [address] [place], [place] [address] Allergies, Adverse Reactions, Alerts Substance Reaction Severity Status sulfADIAZINE Rash Active droperidol Anaphylactic reaction Persistent Severe Active penicillins Rash Active Toradol1, 2 Active Keflex Rash Active Glutens rash Active 1abd upset with [id number] upset Immunizations Given and Recorded Vaccine Date [...] Not Given Patient Refuses 1Result Comment: [05/03/2018] [id number] Comment: [05/03/2018] [id number] Note: pt stated she did not want [...] tablet, 1 Refills, Maintenance, 12/23/19 16:02:00 EDT, [facility]/pharmacy #[id number], 142, cm, 12/15/19 7:46:00 [...] 05/29/21 18:11:00 EST, Route to Pharmacy Electronically, [facility]/pharmacy #[id number], Partial fill upon patient request if the prescriptio... Start Date: 05/29/21 Status: OrderedDaily-Madi with Iron oral tablet 1 tablet, By Mouth, Daily, # 90 tablet, 1 Refills, Maintenance, 12/02/19 14:20:00 EDT, [facility]/pharmacy #[id number], 1 tablet By Mouth [...] capsule, 3 Refills, Maintenance, 09/28/20 7:41:00 EDT, [facility]/pharmacy #[id number], 143, cm, 09/20/20 19:45:00 EDT, Height, 106.6, kg, 09/20/20 19:45:00 EDT, Dry Weight Start Date: 09/28/20 Stop Date: 01/26/21 Status: Orderedduloxetine 60 mg oral enteric coated capsule 1 capsule, By Mouth, Daily, # 30 capsule, 0 Refills, Maintenance, 11/21/19 12:43:00 EDT, [facility], 142, cm, 11/16/19 8:05:00 EDT, Height, 90.7, kg, 10/11/19 1:24:00 EDT, Dry Weight Start Date: 11/21/19 Status: OrderedDupixent 300 mg/2 mL subcutaneous solution Every 14 days, 0 Refills, Maintenance, 11/17/19 4:27:00 EDT Start Date: 11/17/19 Status: Orderedfluticasone 50 mcg/inh nasal spray 1 sprays, Nares, Both, 2 times a day, 0 Refills, Maintenance, 11/17/19 4:21:00 EDT, [place] Start Date: 11/17/19 Status: OrderedImodium A-D 2 mg oral tablet 2 mg, 1, tablet, By Mouth, Every 4 hours, PRN, # 10 tablet, Refills 0, Tot. Refills 0, Maintenance, for loose stool, 07/27/21 19:52:00 EDT, Route to Pharmacy Electronically, [facility]/pharmacy #[id number], Partialfill upon patient request if the prescription is... Start Date: 07/27/21 Status: Orderedindomethacin 25 mg oral capsule 1 capsule = 25 mg, By Mouth, 3 times a day, PRN for arthritis, with food or milk, # 21 capsule, 0 Refills, Maintenance, 09/03/21 11:42:00 EDT, Capsule, [facility], Partial fill upon [...] Refills, Maintenance, 01/30/20 14:58:00 EST, [facility], 143, cm, 01/14/20 22:55:00 EDT, Height, 101, kg, 01/14/20 22:55:00 EDT, Dry Weight Start Date: 01/30/20 Status: Orderedlidocaine 5% topical film 1 patch, Topically, Daily, PRN Pain , Mild, remove after 12 hours, # 13 each, 0 Refills, Maintenance, 08/22/21 22:17:00 EDT, Film, [facility]/pharmacy #[id number], Partial fill upon patient request if the prescription is for a schedule II opioid drug., 1 patch Top... Start Date: 08/22/21 Status: Orderedmagnesium oxide 400 mg oral tablet 1 tablet, By Mouth, Daily, # 90 tablet, 3 Refills, [facility], 143, cm, 04/02/21 3:19:00 EST, Height, 96.2, kg, 04/02/21 3:19:00 EST, Dry Weight Start Date: 04/08/21 Status: Orderedmesalamine 0.375 g oral capsule, extended release 4 capsule, By Mouth, Daily in AM, # 120 capsule, 4 Refills, [facility], 142, cm, 09/03/21 11:20:00 EDT, Height, 90.4, kg, 08/24/21 1:35:00 EDT, Dry Weight Start Date: 09/04/21 Status: Orderedmontelukast 10 mg oral tablet 10 [...] 5 Refills, Maintenance, 05/15/21 14:16:00 EST, Powder, [facility]/pharmacy #[id number], Partial fill upon patient request if [...] 0 Refills,Maintenance, 04/01/21 23:03:00 EST, Tablet, [id number], Partial fill upon patient request ifthe prescription [...]
--- OUTSIDE RECORDS SUMMARY | 2021-12-30 21:52 | XMS_ITS | Continuity of Care Document ---
:1970 Author Organization [facility] Address [address] [place] [id number]- Care Team Providers Name Role Phone Nasima Narayan DO Primary Care Physician Encounter [facility] Date(s): 06/25/20 - 06/26/[address] [address]- Discharge Disposition: A-D/C Walkout Attending Physician: Not [...] Not Given Patient Refuses 1Result Comment: [05/03/2018] [id number] Comment: [05/03/2018] [id number] Note: pt stated she did not want to receive vaccine today, may want later Medications albuterol-ipratropium 3 mg-0.5 mg/3 ml inhalation solution 3 mL, Inhalation, 4 times a day, # 360 mL, 1 Refills, Maintenance, 12/13/19 8:19:00 EDT, Inhalation Solution, [facility], 3 mL Inhalation 4 [...] 01/06/20 10:18:00 EDT, Route to Pharmacy Electronically, [facility], 142, cm, 01/06/20 8:20:00EDT, Height, 103, [...] Refills, Maintenance, 11/21/19 12:43:00 EDT, [facility], 142, cm, 11/16/19 8:05:00 EDT, Height, 90.7, kg, 10/11/19 1:24:00 EDT, Dry Weight Start Date: 11/21/19 Status: OrderedDupixent 300 mg/2 mL subcutaneous solution 0 Refills, Maintenance, 11/17/19 4:27:00 EDT Start Date: 11/17/19 Status: Orderedfluticasone 50 mcg/inh nasal spray 1 sprays, Nares, Both, 2 times a day, 0 Refills, Maintenance, 11/17/19 4:21:00 EDT, [place] Start Date: 11/17/19 Status: Orderedlamotrigine 25 mg [...] Refills, Maintenance, 01/30/20 14:58:00 EST, [facility], 143, cm, 01/14/20 22:55:00 EDT, Height, 101, kg, 01/14/20 22:55:00 EDT, Dry Weight Start Date: 01/30/20 Status: Orderedlidocaine 4% topical film 1 patch, Topically, Daily, # 30 patch, 0 Refills, Maintenance, 01/06/20 10:41:00 EDT, Film, [facility], 142, cm, 01/06/20 8:20:00 EDT, Height, 103, kg, 01/04/20 18:55:00 EDT, Dry Weight Start Date: 01/06/20 Stop Date: 02/05/20 Status: Orderedmagnesium oxide 400 mg (240 mg elemental magnesium) oral tablet 1 tablet, By Mouth, Daily, # 90 tablet, 3 Refills, Acute, 04/10/20 10:44:00 EST, [facility], 90, TAKE 1 TABLET BY MOUTH EVERY DAY, 143, cm, 03/27/20 7:23:00 EST, Height, 101, kg, 01/14/20 22:55:00EDT, Dry Weight Start Date: 04/10/20 Status: Orderedmeloxicam 7.5 mg oral tablet 1 tablet, By Mouth, Daily, # 30 tablet, 0 Refills, Maintenance, 11/23/19 18:18:00 EDT, [facility], 142, cm, 11/16/19 8:05:00 EDT, Height, 90.7, [...] 0 Refills, Maintenance, 06/06/20 13:07:00 EST, Tablet, [facility]/pharmacy #[id number], Partial fill upon patient [...] Exam Date Time Procedure Performing Provider Status 06/25/20 11:50 PM Chest 2 Views Frontal and Lat Latesha Gonzalez (Verified) Notes:(Chest 2 Views Frontal and Lat) Reason For Exam: Chest Pain;Other:RESULT: Chest 2 Views Frontal and Lat Chest 2 Views Frontal and Lat Hx of Present Illness: pt sts she has been SOB for a very long time reports nausea, fevers chillsand abd pain with coffee ground vomit sts she went to her PCP they didnt do anything ; Reason: Other:; Chest Pain; Clinical Question(s): Other:; Order Comment: Labs @ [facility]. [facility]: 06/18/2020 FINDINGS: LINES AND TUBES: None. LUNGS AND PLEURA: Mildly low lung volume. Lungs are otherwise clear with normal pulmonary vasculature. No pleural effusion. No pneumothorax. HEART, MEDIASTINUM AND REY: Heart is normal in size. Normal upper mediastinal and hilar contour. BONES AND SOFT TISSUES: No acute abnormality. Mild S-shaped curvature of the thoracal lumbar spine. IMPRESSION: No acute abnormality. WSN: [id number] Ordering Physician: Rasheeda Muro MD Dictated By: Jonny Jordan DO Dictated Date/Time: 06/26/20 0:06 am Reviewed By: Jonny Jordan DO Signed By: Jonny Jordan DO Signed Date/Time: 06/26/20 0:06 am Transcribed By: ANAYELI Transcribed Date/Time: 06/26/20 0:05 am Vital Signs Most recent to oldest [Reference Range]: 1 2 Oxygen Saturation [94-100 %] 97 % 97 % (06/26/20 3:18 AM) (06/25/20 10:26 PM) Pulse Rate [55-90 bpm] 76 bpm 7 bpm (06/26/20 3:18 AM) *L* (06/25/20 10:26 PM) Blood Pressure [90-138/55-84 mm Hg] 117/71 mm Hg 124/ 83 mm Hg (06/26/20 3:18 AM) (06/25/20 10:26 PM) Respiratory Rate [16-30 br/min] 16 br/min 18 br/mi n (06/26/20 3:18 AM) (06/25/20 10:26 PM) Temperature [96.8-100.4 DegF] 97.7 DegF 97.6 DegF (06/26/20 3:18 AM) (06/25/20 10:26 PM) Mode of Delivery (Oxygen) Room air Room air (06/26/20 3:18 AM) (06/25/20 10:26 PM) Blood pressure sites Arm, right Arm, right (06/26/20 3:18 AM) (06/25/20 10:26 PM) Temperature Route Oral Oral (06/26/20 3:18 AM) (06/25/20 10:26 PM) Social History Social History Type Response Smoking Status Never (less than 100 in life time) entered on: 01/01/20 Sex Female
--- OUTSIDE RECORDS SUMMARY | 2021-12-30 21:52 | XMS_ITS | Continuity of Care Document ---
:1970 Author Organization [facility] Address [address] [facility], 3rd Floor, [address] [place] [address]- Care Team Providers Name Role Phone Fidel Sheffield MD, Mohan Primary Care Physician Encounter [facility] [place] Date(s): 05/10/19 - 06/12/19 [facility] [address] [facility], [address] Floor, [address] [place] [address] [facility] Attending Physician: Ruby Balbuena NP Admitting Physician: Ruby Balbuena NP Allergies, Adverse Reactions, Alerts Substance Reaction Severity [...] Not Given Patient Refuses 1Result Comment: [05/03/2018] [id number] Comment: [05/03/2018] [id number] Note: pt stated she did not want to receive vaccine today, may want later Medications Apriso 0.375 g oral capsule, extended release 4 capsule = 1.5 Gm, By Mouth, Daily in AM, # 56 capsule, 3 Refills, Maintenance, 04/19/19 13:22:00 EST, [facility]ule, [id number], 142, cm, 04/15/19 9:03:00 EST, Height, [...] capsule, 3 Refills, Maintenance, 04/19/19 13:22:00EST, Capsule, [facility]/pharmacy #[id number], 142, cm, 04/15/19 [...] 11:00:00 EDT, 04/01/19 13:49:00 EST, EC Tablet, [facility]/pharmacy #[id number], 142, cm, 04/01/19 [...] 11:00:00 EDT, 04/01/19 13:47:00 EST, REC Powder, [facility]/pharmacy #[id number], 17 Gm By [...] tablet, 0 Refills, Maintenance, 06/12/19 22:03:00 EDT, [facility]/pharmacy #[id number], 143, cm, [...]
--- OUTSIDE RECORDS SUMMARY | 2021-12-30 21:52 | XMS_ITS | Continuity of Care Document ---
:1970 Author Organization [facility] Address [address] [address]- Care Team Providers Name Role Phone Nasima Narayan DO Primary Care Physician Encounter [facility] Date(s): 06/18/20 - 07/26/20 [facility] [address] [address] Attending Physician: Emeterio Merritt MD Referring Physician: Nasima Narayan DO Allergies, [...] Not Given Patient Refuses 1Result Comment: [05/03/2018] [id number] Comment: [05/03/2018] [id number] Note: pt stated she did not want to receive vaccine today, may want later Medications albuterol-ipratropium 3 mg-0.5 mg/3 ml inhalation solution 3 mL, Inhalation, 4 times a day, # 360 mL, 1 Refills, Maintenance, 12/13/19 8:19:00 EDT, Inhalation Solution, [facility], 3 mL Inhalation 4 times a day, 141, cm, 12/07/19 12:18:00 EDT, Height, 100.5, kg, 12/05/19 3:32:00 EDT, Dry Weight Start Date: 12/13/19 Status: OrderedAzithromycin 5 Day Dose Pack 250 mg oral tablet 1 pack/packet, By Mouth, Once, # 6 tablet, 0 Refills, Soft Stop, 06/27/20 15:07:00 EDT, Tablet, [facility]/pharmacy #[id number], [...] 01/06/20 10:18:00 EDT, Route to Pharmacy Electronically, [facility], 142, cm, 01/06/20 8:20:00EDT, Height, 103, kg, 01/04/20 18:55:00 EDT, Dry... Start Date: 01/06/20 Status: Orderedcetirizine 10 mg oral tablet 1 tablet, By Mouth, Daily, # 90 tablet, 1 Refills, Maintenance, 12/23/19 16:02:00 EDT, [facility]/pharmacy #0859, 142, cm, 12/15/19 7:46:00 [...] tablet, 1 Refills, Maintenance, 12/02/19 14:20:00 EDT, [facility]/pharmacy #[id number], 1 tablet By Mouth [...] capsule, 3 Refills, Maintenance, 06/30/20 12:45:00 EDT, [facility]/pharmacy #0859, 142, cm, 06/27/20 14:47:00 EDT, Height, 100, kg, 06/18/20 15:45:00 EDT, Dry Weight Start Date: 06/30/20 Stop Date: 10/28/20 Status: Orderedduloxetine 60 mg oral enteric coated capsule 1 capsule, By Mouth, Daily, # 30 capsule, 0 Refills, Maintenance, 11/21/19 12:43:00 EDT, [facility] STORE 54489, 142, cm, 11/16/19 8:05:00 EDT, Height, 90.7, kg, 10/11/19 1:24:00 EDT, Dry Weight Start Date: 11/21/19 Status: OrderedDupixent 300 mg/2 mL subcutaneous solution 0 Refills, Maintenance, 11/17/19 4:27:00 EDT Start Date: 11/17/19 Status: Orderedfluticasone 50 mcg/inh nasal spray 1 sprays, Nares, Both, 2 times a day, 0 Refills, Maintenance, 11/17/19 4:21:00 EDT, [place] Start Date: 11/17/19 Status: Orderedlamotrigine 25 mg oral tablet 25 mg, 1, tablet, By Mouth, 2 times a day, # 60 tablet, Refills 0, Maintenance, 11/17/19 4:23:00 EDT Start Date: 11/17/19 Status: OrderedLasix 20 mg oral tablet 20 mg, 1, tablet, By Mouth, Daily, # 7 tablet, Refills 0, Tot. Refills 0, Maintenance, 07/15/20 22:03:00 EDT, Route to Pharmacy Electronically, [facility]/pharmacy #[id number], Partial fill upon patient request if the [...] tablet, 0 Refills, Maintenance, 01/30/20 14:58:00 EST, [facility] STORE 76316, 143, cm, 01/14/20 22:55:00 EDT, Height, 101, kg, 01/14/20 22:55:00 EDT, Dry Weight Start Date: 01/30/20 Status: Orderedlidocaine 4% topical film 1 patch, Topically, Daily, # 30 patch, 0 Refills, Maintenance, 01/06/20 10:41:00 EDT, Film, [facility] 3, 142, cm, 01/06/20 8:20:00 EDT, Height, 103, kg, 01/04/20 18:55:00 EDT, Dry Weight Start Date: 01/06/20 Stop Date: 02/05/20 Status: Orderedmagnesium oxide 400 mg (240 mg elemental magnesium) oral tablet 1 tablet, By Mouth, Daily, # 90 tablet, 3 Refills, Acute, 04/10/20 10:44:00 EST, [facility] STORE 31874, 90, TAKE 1 TABLET BY MOUTH EVERY DAY, 143, cm, 03/27/20 7:23:00 EST, Height, 101, kg, 01/14/20 22:55:00EDT, Dry Weight Start Date: 04/10/20 Status: Orderedmeloxicam 7.5 mg oral tablet 1 tablet, By Mouth, Daily, # 30 tablet, 0 Refills, Maintenance, 11/23/19 18:18:00 EDT, [facility], 142, cm, 11/16/19 8:05:00 EDT, Height, 90.7, [...] 0 Refills, Maintenance, 12/19/19 13:39:00 EDT, Tablet, [facility]/pharmacy #[id number], 142, cm, 12/15/19 7:46:00 [...] 3 Refills, Maintenance, 01/10/20 7:53:00 EDT, Capsule, [facility]/pharmacy #[id number], 142, cm, 01/08/20 22:31:00 [...] tablet, 0 Refills,Maintenance, 06/08/20 22:23:00 EST, Tablet, [facility]/pharmacy [...]
--- OUTSIDE RECORDS SUMMARY | 2021-12-30 21:52 | XMS_ITS | Continuity of Care Document ---
:1970 Author Organization [facility] Address [address] [address]- Care Team Providers Name Role Phone Pbjonas Nasima FAITH Primary Care Physician Encounter [facility] Date(s): 01/07/21 - 02/06/21 [facility] [address] [address] Allergies, Adverse Reactions, Alerts Substance Reaction [...] Not Given Patient Refuses 1Result Comment: [05/03/2018] [id number] Comment: [05/03/2018] [id number] Note: pt stated she did not want to receive vaccine today, may want later Medications albuterol-ipratropium 3 mg-0.5 mg/3 ml inhalation solution 3 mL, Inhalation, 4 times a day, # 360 mL, 1 Refills, Maintenance, 12/13/19 8:19:00 EDT, Inhalation Solution, [facility], 3 mL Inhalation 4 times a day, 141, cm, 12/07/19 12:18:00 EDT, Height, 100.5, kg, 12/05/19 3:32:00 EDT, Dry Weight Start Date: 12/13/19 Status: OrderedApriso 0.375 g oral capsule, extended release 4 capsule = 1.5 Gm, By Mouth, Daily in AM, # 120 capsule, 4 Refills, Maintenance, 12/04/20 10:31:00 EDT, CR Capsule, [facility]/pharmacy #[id number], Partial fill upon patient [...] tablet, 1 Refills, Maintenance, 12/23/19 16:02:00 EDT, [facility]/pharmacy #0859, 142, cm, 12/15/19 7:46:00 [...] tablet, 1 Refills, Maintenance, 12/02/19 14:20:00 EDT, [facility]/pharmacy #0859, 1 tablet By Mouth [...] capsule, 3 Refills, Maintenance, 09/28/20 7:41:00 EDT, [facility]/pharmacy #0859, 143, cm, 09/20/20 19:45:00 EDT, Height, 106.6, kg, 09/20/20 19:45:00 EDT, Dry Weight Start Date: 09/28/20 Stop Date: 01/26/21 Status: Orderedduloxetine 60 mg oral enteric coated capsule 1 capsule, By Mouth, Daily, # 30 capsule, 0 Refills, Maintenance, 11/21/19 12:43:00 EDT, [facility] STORE 05660, 142, cm, 11/16/19 8:05:00 EDT, Height, 90.7, kg, 10/11/19 1:24:00 EDT, Dry Weight Start Date: 11/21/19 Status: OrderedDupixent 300 mg/2 mL subcutaneous solution Every 14 days, 0 Refills, Maintenance, 11/17/19 4:27:00 EDT Start Date: 11/17/19 Status: Orderedfluticasone 50 mcg/inh nasal spray 1 sprays, Nares, Both, 2 times a day, 0 Refills, Maintenance, 11/17/19 4:21:00 EDT, [place] Start Date: 11/17/19 Status: Orderedlamotrigine 25 mg [...] tablet, 0 Refills, Maintenance, 01/30/20 14:58:00 EST, [facility] STORE 69558, 143, cm, 01/14/20 22:55:00 EDT, Height, 101, kg, 01/14/20 22:55:00 EDT, Dry Weight Start Date: 01/30/20 Status: Orderedlidocaine 4% topical film 1 patch, Topically, Daily, # 30 patch, 0 Refills, Maintenance, 01/06/20 10:41:00 EDT, Film, [facility] 3, 142, cm, 01/06/20 8:20:00 EDT, Height, 103, kg, 01/04/20 18:55:00 EDT, Dry Weight Start Date: 01/06/20 Stop Date: 02/05/20 Status: Orderedlidocaine 5% topical film 1 patch, Topically, Daily, PRN Pain , Mild, remove after 12 hours, # 13 each, 0 Refills, Maintenance, 11/04/20 23:32:00 EDT, Film, [facility]/pharmacy #[id number], Partial fill upon patient request if the prescription is for a schedule II opioid drug., 1 patch Top... Start Date: 11/04/20 Status: Orderedmagnesium oxide 400 mg (240 mg elemental magnesium) oral tablet 1 tablet, By Mouth, Daily, # 90 tablet, 3 Refills, Acute, 04/10/20 10:44:00 EST, [facility] ST[facility] 38416, 90, TAKE 1 TABLET BY MOUTH EVERY [...] 0 Refills, Maintenance, 12/19/19 13:39:00 EDT, Tablet, [facility]/pharmacy #[id number], 142, cm, 12/15/19 7:46:00 [...]
--- OUTSIDE RECORDS SUMMARY | 2021-12-30 21:52 | XMS_ITS | Continuity of Care Document ---
:1970 Author Organization [facility] Address [address] [place] [phone]- Care Team Providers Name Role Phone Sylvain Nasima FAITH Primary Care Physician [place] [facility] [place] [facility] [address] [place] [id number] Attending Physician: Osmar Shepard MD Admitting Physician: Osmar Shepard MD Allergies, Adverse Reactions, Alerts Substance Reaction [...] Not Given Patient Refuses 1Result Comment: [05/03/2018] [id number] Comment: [05/03/2018] [id number] Note: pt stated she did not want to receive vaccine today, may want later Medications Apriso 0.375 g oral capsule, extended release 4 capsule = 1.5 Gm, By Mouth, Daily in AM, # 120 capsule, 4 Refills, Maintenance, 04/01/21 11:02:00 EST, CR Capsule, [id number], Partial fill upon patient request if the [...] Refills, Maintenance, 11/21/19 12:43:00 EDT, [facility], 142, cm, 11/16/19 8:05:00 EDT, Height, 90.7, kg, 10/11/19 1:24:00 EDT, Dry Weight Start Date: 11/21/19 Status: OrderedDupixent 300 mg/2 mL subcutaneous solution Every 14 days, 0 Refills, Maintenance, 11/17/19 4:27:00 EDT Start Date: 11/17/19 Status: Orderedfluticasone 50 mcg/inh nasal spray 1 sprays, Nares, Both, 2 times a day, 0 Refills, Maintenance, 11/17/19 4:21:00 EDT, [place] Start Date: 11/17/19 Status: OrderedLatuda 40 mg oral tablet 1 tablet = 40 mg, By Mouth, Daily, # 30 tablet, 0 Refills, Maintenance, 11/17/19 4:22:00 EDT, Tablet Start Date: 11/17/19 Status: Orderedlevothyroxine 0.137 mg oral tablet 1 tablet, By Mouth, Daily, # 90 tablet, 0 Refills, Maintenance, 01/30/20 14:58:00 EST, [facility], 143, cm, 01/14/20 22:55:00 EDT, Height, 101, kg, 01/14/20 22:55:00 EDT, Dry Weight Start Date: 01/30/20 Status: Orderedmagnesium oxide 400 mg oral tablet 1 tablet, By Mouth, Daily, # 90 tablet, 3 Refills, [facility], 143, cm, 04/02/21 3:19:00 EST, Height, 96.2, [...] 0 Refills, Maintenance, 04/01/21 23:03:00EST, CR Capsule, [facility]/pharmacy #[id number], Partial [...] tablet, 0 Refills, Maintenance, 04/12/21 11:53:00 EST, [facility]/pharmacy #[id number], Partial [...] 0 Refills,Maintenance, 04/01/21 23:03:00 EST, Tablet, [id number], Partial fill upon patient request ifthe prescription [...]
--- OUTSIDE RECORDS SUMMARY | 2021-12-30 21:52 | XMS_ITS | Continuity of Care Document ---
:1970 Author Organization [facility] Address [address] [place] [address]- Care Team Providers Name Role Phone Go Schwarz MD Primary Care Physician Encounter [facility] [place] Date(s): 08/21/19 - 08/21/[address] [address]- [facility] Encounter Diagnosis Left leg cellulitis (Final) - 08/21/19 Discharge Disposition: A-D/C Home Attending Physician: Froilan [...] Not Given Patient Refuses 1Result Comment: [05/03/2018] [id number] Comment: [05/03/2018] [id number] Note: pt stated she did not want to receive vaccine today, may want later Medications Apriso 0.375 g oral capsule, extended release 4 capsule = 1.5 Gm, By Mouth, Daily in AM, # 120 capsule, 3 Refills, Maintenance, 06/16/19 11:33:00 EDT, CR Capsule, [facility]/pharmacy #0859, 143, cm, 06/09/19 7:23:00 EDT, Height, 91, kg, 06/06/19 18:37:00EDT, Dry Weight Start Date: 06/16/19 Stop Date: 10/14/19 Status: OrderedbuPROPion 200 mg/12 hours (SR) oral tablet, extended release 1 tablet = 200 mg, By Mouth, 2 times a day before breakfast and dinne, # 60 tablet, 0 Refills, Maintenance, 12/27/18 11:15:10 EDT, ER Tablet Start Date: 12/27/18 Stop Date: 01/26/19 Status: Orderedclindamycin 150 mg oral capsule 3 capsule = 450 mg, By Mouth, Every 8 hours, for 5 days, # 45 capsule, 0 Refills, Acute 08/26/19 23:29:00 EDT, 08/21/19 23:29:00 EDT, Capsule, [facility]/pharmacy #0859, 142, cm, 08/08/19 8:45:00 EDT, Height,89, [...] 0 Refills, Maintenance, 08/10/19 15:44:00 EDT, Gel, [facility]/pharmacy #0859, 1 application Topically 2 times [...] Refills, Soft Stop, 04/28/19 17:14:00 EST, Liquid[facility] 150 [facility] By Mouth Once, 142, cm, 04/28/19 9:05:00 EST, Height, 92.6, kg, 03/30/19 10:30:00 EST, Dry Weight Start Date: 04/28/19 Status: Orderedmeloxicam 7.5 mg oral tablet 1 tablet = 7.5 mg, By Mouth, Daily, # 30 tablet, 0 Refills, Maintenance, 07/27/19 17:19:00 EDT, Tablet, [facility], cm, 07/25/19 10:31:00 EDT, Height, 90.9, kg, 06/21/19 14:06:00 EDT, Dry Weight Start Date: 07/27/19 Status: Orderedondansetron 4 mg oral tablet 1 tablet = 4 mg, By Mouth, Every 8 hours, PRN as needed for nausea and vomiting, # 15 tablet, 0 Refills, Maintenance, 08/10/19 15:44:00 EDT, Tablet, [facility]/pharmacy #0859, 142, cm, 08/08/19 8:45:00 EDT, [...] Most recent to oldest [Reference Range]: 1 Oxygen Saturation [94-100 %] 95 % (08/21/19 9:13 PM) Pulse Rate [55-90 bpm] 93 bpm *H* (08/21/19 9:13 PM) Blood Pressure [90-138/55-84 mm Hg] 118/49 mm Hg (08/21/19 9:13 PM) Respiratory Rate [16-30 br/min] 20 br/min (08/21/19 9:13 PM) Temperature [96.8-100.4 DegF] 98.5 DegF (08/21/19 9:13 PM) Mode of Delivery (Oxygen) Room air (08/21/19 9:13 PM) Blood pressure sites Arm, right (08/21/19 9:13 PM) Temperature Route Oral (08/21/19 9:13 PM) Social History Social History Type Response Smoking Status Never smoker; Tobacco user i n household: No entered on: 10/25/14 Sex
--- OUTSIDE RECORDS SUMMARY | 2021-12-30 21:52 | XMS_ITS | Continuity of Care Document ---
:1970 Author Organization [facility] Address [address] [place] [id number]- Care Team Providers Name Role Phone Nasima Narayan DO Primary Care Physician Encounter [facility] [place] Date(s): 06/05/20 - 06/06/[address] [address]- Encounter Diagnosis Abdominal pain (Final) - 06/06/20 Discharge Disposition: A-D/C Home Attending Physician: Corrie Rodriguez MD Admitting Physician: Corrie Rodriguez MD [...] Not Given Patient Refuses 1Result Comment: [05/03/2018] [id number] Comment: [05/03/2018] [id number] Note: pt stated she did not want to receive vaccine today, may want later Medications albuterol-ipratropium 3 mg-0.5 mg/3 ml inhalation solution 3 mL, Inhalation, 4 times a day, # 360 mL, 1 Refills, Maintenance, 12/13/19 8:19:00 EDT, Inhalation Solution, [facility], 3 mL Inhalation [...] 01/06/20 10:18:00 EDT, Route to Pharmacy Electronically, [facility], 142, cm, 01/06/20 8:20:00EDT, Height, 103, kg, 01/04/20 18:55:00 EDT, Dry... Start Date: 01/06/20 Status: Orderedcetirizine 10 mg oral tablet 1 tablet, By Mouth, Daily, # 90 tablet, 1 Refills, Maintenance, 12/23/19 16:02:00 EDT, [facility]/pharmacy #0859, 142, cm, 12/15/19 [...] tablet, 1 Refills, Maintenance, 12/02/19 14:20:00 EDT, [facility]/pharmacy #0859, 1 tablet By [...] capsule, 0 Refills, Maintenance, 11/21/19 12:43:00 EDT, [facility], 142, cm, 11/16/19 8:05:00 EDT, Height, 90.7, kg, 10/11/19 1:24:00 EDT, Dry Weight Start Date: 11/21/19 Status: OrderedDupixent 300 mg/2 mL subcutaneous solution 0 Refills, Maintenance, 11/17/19 4:27:00 EDT Start Date: 11/17/19 Status: Orderedfluticasone 50 mcg/inh nasal spray 1 sprays, Nares, Both, 2 times a day, 0 Refills, Maintenance, 11/17/19 4:21:00 EDT, [place] Start Date: 11/17/19 Status: Orderedlamotrigine 25 mg [...] tablet, 0 Refills, Maintenance, 01/30/20 14:58:00 EST, [facility], 143, cm, 01/14/20 22:55:00 EDT, Height, 101, kg, 01/14/20 22:55:00 EDT, Dry Weight Start Date: 01/30/20 Status: Orderedlidocaine 4% topical film 1 patch, Topically, Daily, # 30 patch, 0 Refills, Maintenance, 01/06/20 10:41:00 EDT, Film, [facility] 3, 142, cm, 01/06/20 8:20:00 EDT, Height, 103, kg, 01/04/20 18:55:00 EDT, Dry Weight Start Date: 01/06/20 Stop Date: 02/05/20 Status: Orderedmagnesium oxide 400 mg (240 mg elemental magnesium) oral tablet 1 tablet, By Mouth, Daily, # 90 tablet, 3 Refills, Acute, 04/10/20 10:44:00 EST, [facility] 8[facility], 90, TAKE 1 TABLET BY MOUTH EVERY DAY, 143, cm, 03/27/20 7:23:00 EST, Height, 101, kg, 01/14/20 22:55:00EDT, Dry Weight Start Date: 04/10/20 Status: Orderedmeloxicam 7.5 mg oral tablet 1 tablet, By Mouth, Daily, # 30 tablet, 0 Refills, Maintenance, 11/23/19 18:18:00 EDT, [facility], 142, cm, 11/16/19 8:05:00 EDT, Height, 90.7, [...] Dry Weight Start Date: 04/11/20 Status: Orderednystatin 723767 u/ml oral suspension 1 mL = 100,000 units, By Mouth, 4 times a day, # 30 mL, 0 Refills, Maintenance, 11/17/19 4:28:00 EDT, Suspension Start Date: 11/17/19 Status: Orderedondansetron 4 mg oral tablet 1 tablet = 4 mg, By Mouth, Every 8 hours, PRN Nausea & Vomiting, # 10 tablet, 0 Refills, Maintenance, 12/19/19 13:39:00 EDT, Tablet, [facility]/pharmacy #0859, 142, cm, 12/15/19 [...] 3 Refills, Maintenance, 01/10/20 7:53:00 EDT, Capsule, [facility]/pharmacy #0859, 142, cm, 01/08/20 [...] 11/17/19 Status: OrderedTylenol 325 mg oral tablet 975 mg, Tablet, By Mouth, Once, STAT, 06/06/20 9:16:00 EST, Stop date 06/06/20 9:16:00 EST Start Date: 06/06/20 Stop Date: 06/06/20 Status: CompletedTylenol 325 mg oral tablet 650 mg, 2, [...] 0 Refills, Maintenance, 06/06/20 13:07:00 EST, Tablet, [facility]/pharmacy #[id number], Partial fill upon patient request if the [...] Exam Date Time Procedure Performing Provider Status 06/05/20 10:35 PM Chest 2 Views Frontal and Lat Ludwin Campbell; Jairo (Verified) Notes:(Chest 2 Views Frontal and Lat) Reason For Exam: Chest Pain;Other:RESULT: Chest 2 Views Frontal and Lat Chest 2 Views Frontal and Lat Hx of Present Illness: Pt sts she has been having n v x5 days, diarrhea x7 days. Left sided Chest and jaw pain x2 days. Left hand numbness. Sts she feels like she cant breathe.; Reason: Other:; Chest Pain; Clinical Question(s): Other: COMPARISON: 05/20/2020. FINDINGS: LINES AND TUBES: None. LUNGS AND PLEURA: Clear lungs. Normal pulmonary vascularity. No pleural effusion. No pneumothorax, although lung apices partially obscured by patient's chin. HEART, MEDIASTINUM AND REY: Heart is normal in size. Normal upper mediastinal and hilar contour. BONES AND SOFT TISSUES: No acute abnormality. Mild S-shaped scoliosis of the thoracolumbar spine. IMPRESSION: No acute abnormality. WSN: [id number] Ordering Physician: Benjamin Farrar Dictated By: Piedad Sinclair MD Dictated Date/Time: 06/05/20 10:36 p Reviewed By: Piedad Sinclair MD Signed By: Piedad Sinclair MD Signed Date/Time: 06/05/20 10:36 pm Transcribed By: ANAYELI Transcribed Date/Time: 06/05/20 10:35 pm Vital Signs Most recent to oldest 1 2 3 [Reference Range]: Oxygen Saturation [94-100 %] 100 % 98 % 100 % (3/10/21 1:25 PM) (06/06/20 11:41 AM) (06/06/20 11 :01 AM) Pulse Rate [55-90 bpm] 82 bpm 79 bpm 87 bpm (06/06/20 1:25 PM) (06/06/20 11:41 AM) (06/06/20 11 :01 AM) Blood Pressure [90-138/55-84 121/93 mm Hg 133/73 mm Hg 133 /73 mm Hg mm Hg] (06/06/20 1:25 PM) (06/06/20 11:41 AM) (06/06/20 11 :01 AM) Respiratory Rate [16-30 16 br/min 16 br/min 16 br/mi n br/min] (06/06/20 1:25 PM) (06/06/20 11:56 AM) (06/06/20 11 :41 AM) Temperature [96.8-100.4 DegF] 98.6 DegF 98.9 DegF 97 .8 DegF (06/06/20 7:58 AM) (06/06/20 6:21 AM) (06/06/20 4:5 0 AM) Mode of Delivery (Oxygen) Room air Room air Room a ir (06/06/20 1:25 PM) (06/06/20 11:41 AM) (06/06/20 11 :01 AM) Blood pressure sites Arm, left Arm, left Arm, left (06/06/20 1:25 PM) (06/06/20 11:41 AM) (06/06/20 9: 46 AM) Temperature Route Oral Oral Oral (06/06/20 7:58 AM) (06/06/20 6:21 AM) (06/06/20 4:5 0 AM) Weight Obtained Via UTO (06/05/20 7:26 PM) Dry Weight Obtained Via [facility]TO (06/05/20 7:26 PM) Social History Social History Type Response Smoking Status Never (less than 100 in life time) entered on: 01/01/20 Sex
--- OUTSIDE RECORDS SUMMARY | 2021-12-30 21:52 | XMS_ITS | Continuity of Care Document ---
:1970 Author Organization [facility] Address [address] [place] [id number]- Care Team Providers Name Role Phone Mohan Chew MD Primary Care Physician Encounter [facility] [place] Date(s): 05/12/19 - 05/12/[address] [address] [facility] Encounter Diagnosis RSV infection (Final) - 05/12/19 Cough (Final) - 05/12/19 Precordial chest pain (Final) - 05/12/19 Discharge Disposition: A-D/C Home Attending Physician: Brianna [...] Not Given Patient Refuses 1Result Comment: [05/03/2018] [id number] Comment: [05/03/2018] [id number] Note: pt stated she did not want [...] Refills, Maintenance, 04/19/19 13:22:00 EST, CR Capsule, [facility]/pharmacy #[id number], 142, cm, 04/15/19 9:03:00 [...] capsule, 3 Refills, Maintenance, 04/19/19 13:22:00EST, Capsule, [facility]/pharmacy #[id number], 142, cm, 04/15/19 9:03:00 [...] 11:00:00 EDT, 04/01/19 13:49:00 EST, EC Tablet, [facility]/pharmacy #0859, 142, cm, 04/01/19 11:22:00 [...] 2 Refills, Maintenance, 04/01/19 13:47:00 EST, Capsule, [facility]/pharmacy #[id number], 142, cm, 04/01/19 11:22:00 EST, Height, 92.6, kg, 03/30/19 10:30:00 EST, Dry Weight Start Date: 04/01/19 Status: Orderedmagnesium citrate 8.85% oral liquid 150 mL = 8.725 Gm, By Mouth, Once, # 300 mL, 0 Refills, Soft Stop, 04/28/19 17:14:00 EST, Liquid, [facility]/pharmacy #0315, 150 mL By Mouth Once, 142, cm, 04/28/19 9:05:00 EST, Height, 92.6, kg, 03/30/19 10:30:00 EST, Dry Weight Start Date: 04/28/19 Status: OrderedMiraLax oral powder for reconstitution = 17 Gm, By Mouth, Daily, dissolve in water before taking, # 255 Gm, 1 Refills, Acute 06/23/19 11:00:00 EDT, 04/01/19 13:47:00 EST, REC Powder, [facility]/pharmacy #[id number], 17 Gm By Mouth [...] 06/09/19 11:00:00 EDT, 04/01/19 13:48:00 EST, Tablet, [facility]/pharmacy #0859, 2 tablet By Mouth Daily at [...] Exam Date Time Procedure Performing Provider Status 05/12/19 4:12 PM Chest 2 Views Frontal and Lat Jeana Johnson; Auth (Verified) Notes:(Chest 2 Views Frontal and Lat) Reason For Exam: AnginaRESULT: Chest 2 Views Frontal and Lat Chest 2 Views Frontal and Lat Refer to EMR; Reason: Angina; Clinical Question(s): CHF; Hx of Present Illness: Pt reports intermittent dizziness x 1 month, productive cough and MILENA x 1 week, and chest pain nausea vomiting since early today. COMPARISON: Multiple priors, most recent dated 03/29/2019 FINDINGS: LINES AND TUBES: None. LUNGS AND PLEURA: The lung volumes are low which accentuates the cardiac silhouette and pulmonary vasculature and causes crowding of bronchovascular markings at the bases. No focal consolidation. No pleural effusion. No pneumothorax. HEART, MEDIASTINUM AND REY: Heart is normal in size. Normal mediastinal and hilar contour. BONES AND SOFT TISSUES: No acute abnormality. Mild dextroscoliosis of the thoracic spine noted. IMPRESSION: No radiographic evidence of acute cardiopulmonary disease. WSN: [id number] Dictated By: Lilly Quinteros MD Dictated Date/Time: 05/12/19 4:20 pm Reviewed By: Lilly Quinteros MD Signed By: Lilly Quinteros MD Signed Date/Time: 05/12/19 4:20 pm Transcribed By: ANAYELI Transcribed Date/Time: 05/12/19 4:19 pm Vital Signs Most recent to oldest 1 2 3 [Reference Range]: Height 142.24 cm (05/12/19 3:50 PM) Weight 90.5 kg (2/13/20 3:50 PM) Oxygen Saturation [94-100 %] 98 % 98 % 98 % (05/12/19 7:31 PM) (05/12/19 5:38 PM) (05/12/19 3:5 0 PM) Pulse Rate [55-90 bpm] 85 bpm 82 bpm 91 bpm (05/12/19 7:31 PM) (05/12/19 5:38 PM) *H* (05/12/19 3:50 PM ) Blood Pressure [90-138/55-84 mm 129/69 mm Hg 133/66 mm Hg 121/91 mm Hg Hg] (05/12/19 7:31 PM) (05/12/19 5:38 PM) (05/12/19 3:5 0 PM) Respiratory Rate [16-30 br/min] 18 br/min 18 br/min 30 br/min (05/12/19 7:31 PM) (05/12/19 5:38 PM) (05/12/19 3:5 0 PM) Temperature [96.8-100.4 DegF] 97.2 DegF 98 DegF 98 .2 DegF (05/12/19 7:31 PM) (05/12/19 5:38 PM) (05/12/19 3:5 0 PM) Liters per Minute 3 L/min (05/12/19 3:40 PM) Mode of Delivery (Oxygen) Room air Room air Room a ir (05/12/19 7:31 PM) (05/12/19 5:38 PM) (05/12/19 3:5 0 PM) Temperature Route Oral (05/12/19 3:50 PM) Dry Weight 90.5 kg (05/12/19 3:50 PM) Social History Social History Type Response Smoking Status Never smoker; Tobacco user i n household: No entered on: 10/25/14 Sex Female
--- OUTSIDE RECORDS SUMMARY | 2021-12-30 21:52 | XMS_ITS | Continuity of Care Document ---
:1970 Author Organization [facility] Address [address] [place] [id number]- Care Team Providers Name Role Phone Nasima Narayan DO Primary Care Physician [place] [facility] [place] 04/04/20 [facility] [address] [place] [id number] Allergies, Adverse Reactions, Alerts Substance Reaction [...] Not Given Patient Refuses 1Result Comment: [05/03/2018] [id number] Comment: [05/03/2018] [id number] Note: pt stated she did not want to receive vaccine today, may want later Medications albuterol-ipratropium 3 mg-0.5 mg/3 ml inhalation solution 3 mL, Inhalation, 4 times a day, # 360 mL, 1 Refills, Maintenance, 12/13/19 8:19:00 EDT, Inhalation Solution, [facility], 3 mL Inhalation 4 times [...] 01/06/20 10:18:00 EDT, Route to Pharmacy Electronically, [facility], 142, cm, 01/06/20 8:20:00EDT, Height, 103, kg, 01/04/20 18:55:00 EDT, Dry... Start Date: 01/06/20 Status: Orderedcetirizine 10 mg oral tablet 1 tablet, By Mouth, Daily, # 90 tablet, 1 Refills, Maintenance, 12/23/19 16:02:00 EDT, [facility]/pharmacy #[id number], 142, cm, 12/15/19 7:46:00 EDT, [...] Refills, Maintenance, 12/02/19 14:20:00 EDT, [facility]/pharmacy #[id number], 1 tablet By Mouth Daily, [...] Refills, Maintenance, 11/21/19 12:43:00 EDT, [facility], 142, cm, 11/16/19 8:05:00 EDT, Height, 90.7, kg, 10/11/19 1:24:00 EDT, Dry Weight Start Date: 11/21/19 Status: OrderedDupixent 300 mg/2 mL subcutaneous solution 0 Refills, Maintenance, 11/17/19 4:27:00 EDT Start Date: 11/17/19 Status: Orderedfluticasone 50 mcg/inh nasal spray 1 sprays, Nares, Both, 2 times a day, 0 Refills, Maintenance, 11/17/19 4:21:00 EDT, [place] Start Date: 11/17/19 Status: Orderedlamotrigine 25 mg [...] tablet, 0 Refills, Maintenance, 01/30/20 14:58:00 EST, [facility], 143, cm, 01/14/20 22:55:00 EDT, Height, 101, kg, 01/14/20 22:55:00 EDT, Dry Weight Start Date: 01/30/20 Status: Orderedlidocaine 4% topical film 1 patch, Topically, Daily, # 30 patch, 0 Refills, Maintenance, 01/06/20 10:41:00 EDT, Film, [facility] 3, 142, cm, 01/06/20 8:20:00 EDT, Height, [...] tablet, 0 Refills, Maintenance, 11/23/19 18:18:00 EDT, [facility] 122[facility], 142, cm, 11/16/19 8:05:00 EDT, Height, 90.7, kg, 10/11/19 1:24:00 EDT, Dry Weight Start Date: 11/23/19 Status: Orderedmontelukast 10 mg oral tablet 10 mg, 1, tablet, By Mouth, Daily in PM, # 30 tablet, Refills 0, Maintenance, 11/17/19 4:22:00 EDT Start Date: 11/17/19 Status: Orderednystatin 993728 u/ml oral suspension 1 mL = 100,000 units, By Mouth, 4 times a day, # 30 mL, 0 Refills, Maintenance, 11/17/19 4:28:00 EDT, Suspension Start Date: 11/17/19 Status: Orderedondansetron 4 mg oral tablet 1 tablet = 4 mg, By Mouth, Every 8 hours, PRN Nausea & Vomiting, # 10 tablet, 0 Refills, Maintenance, 12/19/19 13:39:00 EDT, Tablet, [facility]/pharmacy #0859, 142, cm, 12/15/19 7:46:00 EDT, [...] Refills, Maintenance, 01/10/20 7:53:00 EDT, Capsule, [facility]/pharmacy #[id number], 142, cm, 01/08/20 22:31:00 EDT, [...]
--- OUTSIDE RECORDS SUMMARY | 2021-12-30 21:52 | XMS_ITS | Continuity of Care Document ---
:1970 Author Organization [facility] Address Unavailable , Care Team Providers Name Role Phone Sylvain FAITH Nasima Primary Care Physician Encounter [facility] Date(s): 12/14/20 - 01/13/21 [facility] Allergies, Adverse Reactions, Alerts Substance Reaction [...] Not Given Patient Refuses 1Result Comment: [05/03/2018] [id number] Comment: [05/03/2018] [id number] Note: pt stated she did not want to receive vaccine today, may want later Medications albuterol-ipratropium 3 mg-0.5 mg/3 ml inhalation solution 3 mL, Inhalation, 4 times a day, # 360 mL, 1 Refills, Maintenance, 12/13/19 8:19:00 EDT, Inhalation Solution, [facility], 3 mL Inhalation 4 times a day, 141, cm, 12/07/19 12:18:00 EDT, Height, 100.5, kg, 12/05/19 3:32:00 EDT, Dry Weight Start Date: 12/13/19 Status: OrderedApriso 0.375 g oral capsule, extended release 4 capsule = 1.5 Gm, By Mouth, Daily in AM, # 120 capsule, 4 Refills, Maintenance, 12/04/20 10:31:00 EDT, CR Capsule, [facility]/pharmacy #[id number], Partial fill upon patient request [...] tablet, 1 Refills, Maintenance, 12/23/19 16:02:00 EDT, [facility]/pharmacy #0859, 142, cm, 12/15/19 7:46:00 EDT, [...] tablet, 1 Refills, Maintenance, 12/02/19 14:20:00 EDT, [facility]/pharmacy #0859, 1 tablet By Mouth Daily, [...] capsule, 3 Refills, Maintenance, 09/28/20 7:41:00 EDT, [facility]/pharmacy #0859, 143, cm, 09/20/20 19:45:00 EDT, Height, 106.6, kg, 09/20/20 19:45:00 EDT, Dry Weight Start Date: 09/28/20 Stop Date: 01/26/21 Status: Orderedduloxetine 60 mg oral enteric coated capsule 1 capsule, By Mouth, Daily, # 30 capsule, 0 Refills, Maintenance, 11/21/19 12:43:00 EDT, [facility], 142, cm, 11/16/19 8:05:00 EDT, Height, 90.7, kg, 10/11/19 1:24:00 EDT, Dry Weight Start Date: 11/21/19 Status: OrderedDupixent 300 mg/2 mL subcutaneous solution Every 14 days, 0 Refills, Maintenance, 11/17/19 4:27:00 EDT Start Date: 11/17/19 Status: Orderedfluticasone 50 mcg/inh nasal spray 1 sprays, Nares, Both, 2 times a day, 0 Refills, Maintenance, 11/17/19 4:21:00 EDT, [place] Start Date: 11/17/19 Status: Orderedlamotrigine 25 mg [...] tablet, 0 Refills, Maintenance, 01/30/20 14:58:00 EST, [facility], 143, cm, 01/14/20 22:55:00 EDT, Height, 101, kg, 01/14/20 22:55:00 EDT, Dry Weight Start Date: 01/30/20 Status: Orderedlidocaine 4% topical film 1 patch, Topically, Daily, # 30 patch, 0 Refills, Maintenance, 01/06/20 10:41:00 EDT, Film, [facility] 3, 142, cm, 01/06/20 8:20:00 EDT, Height, 103, kg, 01/04/20 18:55:00 EDT, Dry Weight Start Date: 01/06/20 Stop Date: 02/05/20 Status: Orderedlidocaine 5% topical film 1 patch, Topically, Daily, PRN Pain , Mild, remove after 12 hours, # 13 each, 0 Refills, Maintenance, 11/04/20 23:32:00 EDT, Film, [facility]/pharmacy #0859, Partial fill upon patient request if the prescription is for a schedule II opioid drug., 1 patch Top... Start Date: 11/04/20 Status: Orderedmagnesium oxide 400 mg (240 mg elemental magnesium) oral tablet 1 tablet, By Mouth, Daily, # 90 tablet, 3 Refills, Acute, 04/10/20 10:44:00 EST, [id number], 90, TAKE 1 TABLET BY MOUTH EVERY [...] 0 Refills, Maintenance, 12/19/19 13:39:00 EDT, Tablet, [facility]/pharmacy #[id number], 142, cm, 12/15/19 7:46:00 EDT, [...] 4:22:00 EDT Start Date: 11/17/19 Status: OrderedpredniSONE 20 mg oral tablet 2 tablet = 40 mg, By Mouth, Daily, for 5 days, # 10 tablet, 0 Refills, Acute 01/15/21 8:56:00 EDT, 01/10/21 8:56:00 EDT, Tablet, [facility]/pharmacy #[id number], Partial fill upon patient request if the prescription is for a schedule II opioid drug., 142, cm, 12/28... Start Date: 01/10/21 Stop Date: 01/15/21 Status: OrderedtraZODone 150 mg oral tablet 1 [...]
--- OUTSIDE RECORDS SUMMARY | 2021-12-30 21:52 | XMS_ITS | Continuity of Care Document ---
:1970 Author Organization [facility] Address [address] [place] [address]- Care Team Providers Name Role Phone Go Schwarz MD Primary Care Physician [facility] Date[facility]s): 11/22/19 - 12/22/19 [facility] [address] [place] [address]- [facility] Allergies, Adverse Reactions, Alerts Substance Reaction Severity [...] Not Given Patient Refuses 1Result Comment: [05/03/2018] [id number] Comment: [05/03/2018] [id number] Note: pt stated she did not want [...] Refills, Maintenance, 12/13/19 8:19:00 EDT, Inhalation Solution, [facility], 3 mL Inhalation 4 [...] tablet, 1 Refills, Maintenance, 11/28/19 12:52:00 EDT, [facility] STORE [facility]38, 142, cm, 11/23/19 23:52:00 EDT, Height, 90.7, [...] capsule, 0 Refills, Maintenance, 12/19/19 13:37:00 EDT, [facility]/pharmacy #[id number], 142, cm, 12/15/19 7:46:00 EDT, Height, 91, kg, 12/13/19 15:07:00 EDT, Dry Weight Start Date: 12/19/19 Status: Orderedduloxetine 60 mg oral enteric coated capsule 1 capsule, By Mouth, Daily, # 30 capsule, 0 Refills, Maintenance, 11/21/19 12:43:00 EDT, [facility] STORE [address]246, 142, cm, 11/16/19 8:05:00 EDT, Height, 90.7, kg, 10/11/19 1:24:00 EDT, Dry Weight Start Date: 11/21/19 Status: OrderedDupixent 300 mg/2 mL subcutaneous solution 0 Refills, Maintenance, 11/17/19 4:27:00 EDT Start Date: 11/17/19 Status: Orderedfluticasone 50 mcg/inh nasal spray 1 sprays, Nares, Both, 2 times a day, 0 Refills, Maintenance, 11/17/19 4:21:00 EDT, [place] Start Date: 11/17/19 Status: Orderedlamotrigine 25 mg [...] Refills, Maintenance, 11/23/19 18:18:00 EDT, [facility], 142, cm, 11/16/19 8:05:00 EDT, Height, 90.7, kg, 10/11/19 1:24:00 EDT, Dry Weight Start Date: 11/23/19 Status: Orderedmontelukast 10 mg oral tablet 10 mg, 1, tablet, By Mouth, Daily in PM, # 30 tablet, Refills 0, Maintenance, 11/17/19 4:22:00 EDT Start Date: 11/17/19 Status: Orderednystatin 007141 u/ml oral suspension 1 mL = 100,000 [...] 0 Refills, Maintenance, 12/15/19 13:10:00 EDT, Tablet, [facility], 142, cm, 12/15/19 7:46:00 [...]
--- OUTSIDE RECORDS SUMMARY | 2021-12-30 21:52 | XMS_ITS | Continuity of Care Document ---
:1970 Author Organization [facility] Address [address] [place] [address]- Care Team Providers Name Role Phone Not on Staff, PCP Primary Care Physician Unavailable Encounter [facility] [place] Date(s): 07/25/20 - 09/01/[address] [address]- Attending Physician: Katie Pedersen MD Admitting Physician: Katie Pedersen MD Referring Physician: Nasima Narayan DO Allergies, [...] Not Given Patient Refuses 1Result Comment: [05/03/2018] [id number] Comment: [05/03/2018] [id number] Note: pt stated she did not want to receive vaccine today, may want later Medications albuterol-ipratropium 3 mg-0.5 mg/3 ml inhalation solution 3 mL, Inhalation, 4 times a day, # 360 mL, 1 Refills, Maintenance, 12/13/19 8:19:00 EDT, Inhalation Solution, [facility], 3 mL Inhalation 4 times a day, 141, cm, 12/07/19 12:18:00 EDT, Height, 100.5, kg, 12/05/19 3:32:00 EDT, Dry Weight Start Date: 12/13/19 Status: OrderedAzithromycin 5 Day Dose Pack 250 mg oral tablet 1 pack/packet, By Mouth, Once, # 6 tablet, 0 Refills, Soft Stop, 06/27/20 15:07:00 EDT, Tablet, [facility]/pharmacy #[id number], Partial fill upon [...] 01/06/20 10:18:00 EDT, Route to Pharmacy Electronically, [facility], 142, cm, 01/06/20 8:20:00EDT, [...] capsule, 3 Refills, Maintenance, 06/30/20 12:45:00 EDT, [facility]/pharmacy #[id number], 142, cm, 06/27/20 14:47:00 EDT, Height, 100, kg, 06/18/20 15:45:00 EDT, Dry Weight Start Date: 06/30/20 Stop Date: 10/28/20 Status: Orderedduloxetine 60 mg oral enteric coated capsule 1 capsule, By Mouth, Daily, # 30 capsule, 0 Refills, Maintenance, 11/21/19 12:43:00 EDT, [facility], 142, cm, 11/16/19 8:05:00 EDT, Height, 90.7, kg, 10/11/19 1:24:00 EDT, Dry Weight Start Date: 11/21/19 Status: OrderedDupixent 300 mg/2 mL subcutaneous solution 0 Refills, Maintenance, 11/17/19 4:27:00 EDT Start Date: 11/17/19 Status: Orderedfluticasone 50 mcg/inh nasal spray 1 sprays, Nares, Both, 2 times a day, 0 Refills, Maintenance, 11/17/19 4:21:00 EDT, [place] Start Date: 11/17/19 Status: Orderedlamotrigine 25 mg oral tablet 25 mg, 1, tablet, By Mouth, 2 times a day, # 60 tablet, Refills 0, Maintenance, 11/17/19 4:23:00 EDT Start Date: 11/17/19 Status: OrderedLasix 20 mg oral tablet 20 mg, 1, tablet, By Mouth, Daily, # 7 tablet, Refills 0, Tot. Refills 0, Maintenance, 07/15/20 22:03:00 EDT, Route to Pharmacy Electronically, [facility]/pharmacy #[id number], Partial fill upon patient request if the [...] tablet, 0 Refills, Maintenance, 01/30/20 14:58:00 EST, [facility] STORE 67525, 143, cm, 01/14/20 22:55:00 EDT, Height, 101, kg, 01/14/20 22:55:00 EDT, Dry Weight Start Date: 01/30/20 Status: Orderedlidocaine 4% topical film 1 patch, Topically, Daily, # 30 patch, 0 Refills, Maintenance, 01/06/20 10:41:00 EDT, Film, [facility] 3, 142, cm, 01/06/20 8:20:00 EDT, Height, 103, kg, 01/04/20 18:55:00 EDT, Dry Weight Start Date: 01/06/20 Stop Date: 02/05/20 Status: Orderedmagnesium oxide 400 mg (240 mg elemental magnesium) oral tablet 1 tablet, By Mouth, Daily, # 90 tablet, 3 Refills, Acute, 04/10/20 10:44:00 EST, [facility] STORE [address]2796, 90, TAKE 1 TABLET BY MOUTH EVERY DAY, 143, cm, 03/27/20 7:23:00 EST, Height, 101, kg, 01/14/20 22:55:00EDT, Dry Weight Start Date: 04/10/20 Status: Orderedmeloxicam 7.5 mg oral tablet 1 tablet, By Mouth, Daily, # 30 tablet, 0 Refills, Maintenance, 11/23/19 18:18:00 EDT, [facility], 142, cm, 11/16/19 8:05:00 EDT, Height, 90.7, [...] tablet, 0 Refills,Maintenance, 06/08/20 22:23:00 EST, Tablet, [facility]/pharmacy #[id number], Partial fill upon patient request ifthe prescription is for a schedule II opioid drug... Start Date: 06/08/20 Status: OrderedZofran 4 mg oral tablet 1 tablet = 4 mg, By Mouth, Every 8 hours, PRN as needed for nausea/vomiting, # 8 tablet, 0 Refills, Maintenance, 06/06/20 13:07:00 EST, Tablet, [facility]/pharmacy #[id number], Partial fill upon [...]
--- OUTSIDE RECORDS SUMMARY | 2021-12-30 21:52 | XMS_ITS | Continuity of Care Document ---
:1970 Author Organization [facility] Address [address] [address]- Care Team Providers Name Role Phone Cristal OROZCO, Edie Segovia Primary Care Physician [facility] Date(s): 11/21/21 - 12/21/21 [facility] [address] [address] Allergies, Adverse Reactions, Alerts Substance Reaction Severity Status sulfADIAZINE Rash Active droperidol Anaphylactic reaction Persistent Severe Active penicillins Rash Active Toradol1, 2 Active Keflex Rash Active Glutens rash Active 1abd upset with [id number] upset Immunizations Given and Recorded Vaccine Date [...] Not Given Patient Refuses 1Result Comment: [05/03/2018] [id number] Comment: [05/03/2018] [id number] Note: pt stated she did not want [...] tablet, 1 Refills, Maintenance, 12/23/19 16:02:00 EDT, [facility]/pharmacy #[id number], 142, cm, [...] 05/29/21 18:11:00 EST, Route to Pharmacy Electronically, [facility]/pharmacy #[id number], Partial fill upon patient request if the prescriptio... Start Date: 05/29/21 Status: OrderedDaily-Madi with Iron oral tablet 1 tablet, By Mouth, Daily, # 90 tablet, 1 Refills, Maintenance, 12/02/19 14:20:00 EDT, [facility]/pharmacy #0859, 1 tablet [...] 90 capsule, 1 Refills, 11/19/21 7:55:00 EDT, [facility], 142, cm, 10/22/21 16:16:00 EDT, Height, 90.8, kg, 10/22/21 16:16:00 EDT, Dry Weight Start Date: 11/19/21 Status: Orderedduloxetine 60 mg oral enteric coated capsule 1 capsule, By Mouth, Daily, # 30 capsule, 0 Refills, Maintenance, 11/21/19 12:43:00 EDT, [facility] STORE [address]67, 142, cm, 11/16/19 8:05:00 EDT, Height, 90.7, kg, 10/11/19 1:24:00 EDT, Dry Weight Start Date: 11/21/19 Status: OrderedDupixent 300 mg/2 mL subcutaneous solution Every 14 days, 0 Refills, Maintenance, 11/17/19 4:27:00 EDT Start Date: 11/17/19 Status: Orderedfluticasone 50 mcg/inh nasal spray 1 sprays, Nares, Both, 2 times a day, 0 Refills, Maintenance, 11/17/19 4:21:00 EDT, [place] Start Date: 11/17/19 Status: OrderedImodium A-D 2 mg oral tablet 2 mg, 1, tablet, By Mouth, Every 4 hours, PRN, # 10 tablet, Refills 0, Tot. Refills 0, Maintenance, for loose stool, 07/27/21 19:52:00 EDT, Route to Pharmacy Electronically, [facility]/pharmacy #[id number], Partialfill upon patient request if the prescription is... Start Date: 07/27/21 Status: Orderedindomethacin 25 mg oral capsule 1 capsule = 25 mg, By Mouth, 3 times a day, PRN for arthritis, with food or milk, # 21 capsule, 0 Refills, Maintenance, 09/03/21 11:42:00 EDT, Capsule, [facility], Partial fill upon patient [...] tablet, 0 Refills, Maintenance, 01/30/20 14:58:00 EST, [facility] STORE 42570, 143, cm, 01/14/20 22:55:00 EDT, Height, 101, kg, 01/14/20 22:55:00 EDT, Dry Weight Start Date: 01/30/20 Status: Orderedlidocaine 5% topical film 1 patch, Topically, Daily, PRN Pain , Mild, remove after 12 hours, # 13 each, 0 Refills, Maintenance, 08/22/21 22:17:00 EDT, Film, [facility]/pharmacy #[id number], Partial fill upon patient request if the prescription is for a schedule II opioid drug., 1 patch Top... Start Date: 08/22/21 Status: Orderedmagnesium oxide 400 mg oral tablet 1 tablet, By Mouth, Daily, # 90 tablet, 3 Refills, [facility], 143, cm, 04/02/21 3:19:00 EST, Height, 96.2, kg, 04/02/21 3:19:00 EST, Dry Weight Start Date: 04/08/21 Status: Orderedmesalamine 0.375 g oral capsule, extended release 4 capsule, By Mouth, Daily in AM, # 120 capsule, 4 Refills, 10/04/21 16:26:00 EDT, [facility], 142, cm, 09/04/21 17:25:00 EDT, [...] 5 Refills, Maintenance, 05/15/21 14:16:00 EST, Powder, [facility]/pharmacy #[id number], Partial fill upon patient request if the prescription is fora schedule II opioid drug., 143, cm, 05/15/21 14:... Start Date: 05/15/21 Stop Date: 11/11/21 Status: OrderedTrulance 3 mg oral tablet 1 tablet, By Mouth, Daily, # 30 tablet, 2 Refills, Maintenance, 11/21/21 18:20:00 EDT, [facility], 142, cm, 11/20/21 9:07:00 EDT, Height, 90.8, kg, 10/22/21 16:16:00 EDT, Dry Weight Start Date: 11/21/21 Status: OrderedVitamin D3 1000 intl units oral tablet 1 tablet = 1,000 International_Units, By Mouth, Daily, 1 tablet = 1,000 International Units, By Mouth, Daily. 90 day supply, # 90 tablet, 3 Refills, Maintenance, 03/16/20 16:49:00 EST, Tablet, [facility]/pharmacy #[id number], 143, cm, 02/29/20 9:09:00 EST, Height... Start Date: 03/16/20 Status: OrderedZofran 4 mg oral tablet 1 tablet = 4 mg, By Mouth, Every 8 hours, PRN as needed for nausea/vomiting, # 15 tablet, 0 Refills,Maintenance, 04/01/21 23:03:00 EST, Tablet, [facility]/pharmacy #[id number], Partial fill upon patient request ifthe prescription [...] Edie Bee MD Address: [address] [place] [address]-
--- OUTSIDE RECORDS SUMMARY | 2021-12-30 21:53 | XMS_ITS | Continuity of Care Document ---
:1970 Author Organization [facility] Address [address] [place] [address]- Care Team Providers Name Role Phone Go Schwarz MD Primary Care Physician [facility] Date[facility]s): 12/23/19 - 12/23/[address] [address]- [facility] Discharge Disposition: A-D/C Walkout Attending Physician: Not [...] Not Given Patient Refuses 1Result Comment: [05/03/2018] [id number] Comment: [05/03/2018] [id number] Note: pt stated she did not want [...] Refills, Maintenance, 12/13/19 8:19:00 EDT, Inhalation Solution, [facility], 3 mL Inhalation 4 times [...] Daily, # 30 tablet, 0 Refills, Maintenance, 08/20/204:24:00 EDT, Tablet Start Date: 11/17/19 Status: OrderedDaily-Madi [...] capsule, 0 Refills, Maintenance, 12/19/19 13:37:00 EDT, [facility]/pharmacy #[id number], 142, cm, 12/15/19 7:46:00 EDT, Height, 91, kg, 12/13/19 15:07:00 EDT, Dry Weight Start Date: 12/19/19 Status: Orderedduloxetine 60 mg oral enteric coated capsule 1 capsule, By Mouth, Daily, # 30 capsule, 0 Refills, Maintenance, 11/21/19 12:43:00 EDT, [facility] STORE 85897, 142, cm, 11/16/19 8:05:00 EDT, Height, 90.7, kg, 10/11/19 1:24:00 EDT, Dry Weight Start Date: 11/21/19 Status: OrderedDupixent 300 mg/2 mL subcutaneous solution 0 Refills, Maintenance, 11/17/19 4:27:00 EDT Start Date: 11/17/19 Status: Orderedfluticasone 50 mcg/inh nasal spray 1 sprays, Nares, Both, 2 times a day, 0 Refills, Maintenance, 11/17/19 4:21:00 EDT, [place] Start Date: 11/17/19 Status: Orderedlamotrigine 25 mg [...] Refills, Maintenance, 11/23/19 18:18:00 EDT, [facility], 142, cm, 11/16/19 8:05:00 EDT, Height, 90.7, kg, 10/11/19 1:24:00 EDT, Dry Weight Start Date: 11/23/19 Status: Orderedmontelukast 10 mg oral tablet 10 mg, 1, tablet, By Mouth, Daily in PM, # 30 tablet, Refills 0, Maintenance, 11/17/19 4:22:00 EDT Start Date: 11/17/19 Status: Orderednystatin 579113 u/ml oral suspension 1 mL = 100,000 [...] 0 Refills, Maintenance, 12/15/19 13:10:00 EDT, Tablet, [facility], 142, cm, 12/15/19 7:46:00 [...] [Reference Range]: 1 Oxygen Saturation [94-100 %] 99 % (12/23/19 6:23 PM) Pulse Rate [55-90 bpm] 99 bpm *H* (12/23/19 6:23 PM) Blood Pressure [90-138/55-84 mm Hg] 100/79 mm Hg (12/23/19 6:23 PM) Respiratory Rate [16-30 br/min] 18 br/min (12/23/19 6:23 PM) Temperature [96.8-100.4 DegF] 99.2 DegF (12/23/19 6:23 PM) Mode of Delivery (Oxygen) Room air (12/23/19 6:23 PM) Blood pressure sites Arm, right (12/23/19 6:23 PM) Temperature Route Oral (12/23/19 6:23 PM) Social History Social History Type Response Smoking Status Never smoker; Tobacco user i n household: No entered on: 10/25/14 Sex
--- OUTSIDE RECORDS SUMMARY | 2021-12-30 21:53 | XMS_ITS | Continuity of Care Document ---
:1970 Author Organization [facility] Address [address] [place] [address]- Care Team Providers Name Role Phone Go Schwarz MD Primary Care Physician Encounter [facility] [id number] Date(s): 06/15/19 - 08/13/19 [facility] [address] [place] [address]- [facility] Attending Physician: Bipin Dias MD Allergies, Adverse [...] Not Given Patient Refuses 1Result Comment: [05/03/2018] [id number] Comment: [05/03/2018] [id number] Note: pt stated she did not want [...] 0 Refills, Maintenance, 08/10/19 15:44:00 EDT, Gel, [facility]/pharmacy #[id number], 1 application Topically 2 [...] Refills, Soft Stop, 04/28/19 17:14:00 EST, Liquid, [facility]/pharmacy #0315, 150 mL By Mouth Once, 142, cm, 04/28/19 9:05:00 EST, Height, 92.6, kg, 03/30/19 10:30:00 EST, Dry Weight Start Date: 04/28/19 Status: Orderedmeloxicam 7.5 mg oral tablet 1 tablet = 7.5 mg, By Mouth, Daily, # 30 tablet, 0 Refills, Maintenance, 07/27/19 17:19:00 EDT, Tablet, [facility]/pharmacy #0859, 138, cm, 07/25/19 10:31:00 EDT, Height, 90.9, kg, 06/21/19 14:06:00 EDT, Dry Weight Start Date: 07/27/19 Status: Orderedondansetron 4 mg oral tablet 1 tablet = 4 mg, By Mouth, Every 8 hours, PRN as needed for nausea and vomiting, # 15 tablet, 0 Refills, Maintenance, 08/10/19 15:44:00 EDT, Tablet, [facility]/pharmacy #0859, 142, cm, 08/08/19 8:45:00 [...]
--- OUTSIDE RECORDS SUMMARY | 2021-12-30 21:53 | XMS_ITS | Continuity of Care Document ---
:[address] [facility] Address [address] [place] [address]- Care Team Providers Name Role Phone Fidel Sheffield MD, Mohan Primary Care Physician [place] [facility] [place] 06/20/19 - 06/30/19 [place] [address]- [facility] Attending Physician: Vinny Cornejo Admitting Physician: Vinny Cornejo Referring Physician: Vinny Cornejo Allergies, Adverse Reactions, Alerts Substance Reaction Severity [...] Not Given Patient Refuses 1Result Comment: [05/03/2018] [id number] Comment: [05/03/2018] [id number] Note: pt stated she did not want [...] Refills, Maintenance, 04/19/19 13:22:00EST, Capsule, [facility]/pharmacy #[id number], 142, cm, 04/15/19 [...] 04/01/19 13:49:00 EST, EC Tablet, [facility]/pharmacy #[id number], 142, cm, 04/01/19 [...] Stop, 04/28/19 17:14:00 EST, Liquid, [facility]/pharmacy #[id number], 150 mL By [...] Start Date: 12/27/18 Stop Date: 01/26/19 Status: Orderednystatin 108282 u/ml oral suspension 5 mL = 500,000 units, By Mouth, 4 times a day, for 7 days, retain in mouth as long as possible before swallowing, # 140 mL, 0 Refills, Acute 07/01/19 14:41:00 EDT, 06/24/19 14:41:00 EDT, Suspension, [facility], 138, cm, 06/23/19 3:09:00... Start Date: 06/24/19 Stop Date: 07/01/19 Status: Orderedprazosin 5 mg oral capsule 5 [...]
--- OUTSIDE RECORDS SUMMARY | 2021-12-30 21:53 | XMS_ITS | Continuity of Care Document ---
:1970 Author Organization [facility] Address [address] [place] [address]- Care Team Providers Name Role Phone Go Schwarz MD Primary Care Physician Encounter [facility] Date(s): 11/28/19 - 11/29/[address] [address]- [facility] Encounter Diagnosis Pericardial effusion (Final) - 11/29/19 Shortness of breath (Final) - 11/29/19 Chest pain (Final) - 11/29/19 Discharge Disposition: A-D/C Home Attending Physician: Ángel Walker MD Admitting Physician: Ángel Walker MD Referring Physician: Not on Staff, Referring [...] Not Given Patient Refuses 1Result Comment: [05/03/2018] [id number] Comment: [05/03/2018] [id number] Note: pt stated she did not want [...] tablet, 1 Refills, Maintenance, 11/28/19 12:52:00 EDT, [facility], 142, cm, 11/23/19 23:52:00 EDT, Height, 90.7, [...] :24:00 EDT, Tablet Start Date: 11/17/19 Status: Ordereddivalproex sodium 250 mg oral tablet, [...] Refills, Maintenance, 11/21/19 12:43:00 EDT, [facility], 142, cm, 11/16/19 8:05:00 EDT, Height, 90.7, kg, 10/11/19 1:24:00 EDT, Dry Weight Start Date: 11/21/19 Status: OrderedDupixent 300 mg/2 mL subcutaneous solution 0 Refills, Maintenance, 11/17/19 4:27:00 EDT Start Date: 11/17/19 Status: Orderedfluticasone 50 mcg/inh nasal spray 1 sprays, Nares, Both, 2 times a day, 0 Refills, Maintenance, 11/17/19 4:21:00 EDT, [facility] Start Date: 11/17/19 Status: Orderedfurosemide 20 mg [...] tablet, 0 Refills, Maintenance, 11/23/19 18:18:00 EDT, [facility] STORE [address]05, 142, cm, 11/16/19 8:05:00 EDT, Height, 90.7, kg, 10/11/19 1:24:00 EDT, Dry Weight Start Date: 11/23/19 Status: Orderedmontelukast 10 mg oral tablet 10 mg, 1, tablet, By Mouth, Daily in PM, # 30 tablet, Refills 0, Maintenance, 11/17/19 4:22:00 EDT Start Date: 11/17/19 Status: Orderednystatin 050148 u/ml oral suspension 1 mL = 100,000 [...] 12/09/19 12:04:00 EDT, 11/25/19 12:04:00 EDT, Capsule, [facility], 142, cm, 11/23/19 23:52:00 EDT, Height, [...] Range]: Oxygen Saturation [94-100 %] 100 % 96 % 98 % (11/29/19 1:14 AM) (11/29/19 12:07 AM) (11/28/19 10:2 2 PM) Pulse Rate [55-90 bpm] 93 bpm 91 bpm 88 bpm *H* *H* (11/28/19 10:22 P M) (11/29/19 1:14 AM) (11/29/19 12:07 AM) Blood Pressure [90-138/55-84 mm 131/83 mm Hg 119/74 mm Hg 114/94 mm Hg Hg] (11/29/19 1:14 AM) (11/29/19 12:07 AM) (11/28/19 10:2 2 PM) Respiratory Rate [16-30 br/min] 21 br/min 28 br/min 17 br/min (11/29/19 1:14 AM) (11/29/19 12:07 AM) (11/28/19 10:2 2 PM) Temperature [96.8-100.4 DegF] 99.0 DegF 98.6 DegF 98 .9 DegF (11/29/19 1:14 AM) (11/29/19 12:07 AM) (11/28/19 10:2 2 PM) Mode of Delivery (Oxygen) Room air Room air Room a ir (11/29/19 1:14 AM) (11/29/19 12:07 AM) (11/28/19 10:2 2 PM) Blood pressure sites Arm, right Arm, right Arm, left (11/29/19 1:14 AM) (11/29/19 12:07 AM) (11/28/19 10:2 2 PM) Temperature Route Oral Oral Oral (11/29/19 1:14 AM) (11/29/19 12:07 AM) (11/28/19 10:2 2 PM) Social History Social History Type Response Smoking Status Never smoker; Tobacco user i n household: No entered on: 10/25/14 Sex
--- OUTSIDE RECORDS SUMMARY | 2021-12-30 21:53 | XMS_ITS | Continuity of Care Document ---
:1970 Author Organization [facility] Address [address] [address]- Care Team Providers Name Role Phone Abidaterry Nasima FAITH Primary Care Physician Encounter [facility] [place] Date(s): 10/04/20 - 10/05/[address] [address]- Discharge Disposition: A-D/C Walkout Attending Physician: Not [...] Not Given Patient Refuses 1Result Comment: [05/03/2018] [id number] Comment: [05/03/2018] [id number] Note: pt stated she did not want to receive vaccine today, may want later Medications albuterol-ipratropium 3 mg-0.5 mg/3 ml inhalation solution 3 mL, Inhalation, 4 times a day, # 360 mL, 1 Refills, Maintenance, 12/13/19 8:19:00 EDT, Inhalation Solution, [facility], 3 mL Inhalation 4 times [...] capsule, 3 Refills, Maintenance, 09/28/20 7:41:00 EDT, [facility]/pharmacy #[id number], 143, cm, 09/20/20 19:45:00 EDT, Height, 106.6, kg, 09/20/20 19:45:00 EDT, Dry Weight Start Date: 09/28/20 Stop Date: 01/26/21 Status: Orderedduloxetine 60 mg oral enteric coated capsule 1 capsule, By Mouth, Daily, # 30 capsule, 0 Refills, Maintenance, 11/21/19 12:43:00 EDT, [id number], 142, cm, 11/16/19 8:05:00 EDT, Height, 90.7, kg, 10/11/19 1:24:00 EDT, Dry Weight Start Date: 11/21/19 Status: OrderedDupixent 300 mg/2 mL subcutaneous solution 0 Refills, Maintenance, 11/17/19 4:27:00 EDT Start Date: 11/17/19 Status: Orderedfluticasone 50 mcg/inh nasal spray 1 sprays, Nares, Both, 2 times a day, 0 Refills, Maintenance, 11/17/19 4:21:00 EDT, [place] Start Date: 11/17/19 Status: Orderedlamotrigine 25 mg oral tablet 25 mg, 1, tablet, By Mouth, 2 times a day, # 60 tablet, Refills 0, Maintenance, 11/17/19 4:23:00 EDT Start Date: 11/17/19 Status: OrderedLasix 20 mg oral tablet 20 mg, 1, tablet, By Mouth, Daily, # 7 tablet, Refills 0, Tot. Refills 0, Maintenance, 07/15/20 22:03:00 EDT, Route to Pharmacy Electronically, [facility]/pharmacy #[id number], Partial fill upon patient request [...] tablet, 0 Refills, Maintenance, 01/30/20 14:58:00 EST, [facility] ST[facility] [id number], 143, cm, 01/14/20 22:55:00 EDT, Height, 101, kg, 01/14/20 22:55:00 EDT, Dry Weight Start Date: 01/30/20 Status: Orderedlidocaine 4% topical film 1 patch, Topically, Daily, # 30 patch, 0 Refills, Maintenance, 01/06/20 10:41:00 EDT, Film, [facility] 3, 142, cm, 01/06/20 8:20:00 EDT, Height, 103, kg, 01/04/20 18:55:00 EDT, Dry Weight Start Date: 01/06/20 Stop Date: 02/05/20 Status: Orderedmagnesium oxide 400 mg (240 mg elemental magnesium) oral tablet 1 tablet, By Mouth, Daily, # 90 tablet, 3 Refills, Acute, 04/10/20 10:44:00 EST, [id number], 90, TAKE 1 TABLET BY MOUTH EVERY [...] 0 Refills, Maintenance, 12/19/19 13:39:00 EDT, Tablet, [facility]/pharmacy #[id number], 142, cm, 12/15/19 7:46:00 EDT, [...] 3 Refills, Maintenance, 01/10/20 7:53:00 EDT, Capsule, [facility]/pharmacy #[id number], 142, cm, 01/08/20 22:31:00 EDT, [...] Range]: 1 2 Oxygen Saturation [94-100 %] 95 % 95 % (10/04/20 7:05 PM) (10/04/20 5:42 PM) Pulse Rate [55-90 bpm] 93 bpm 88 bpm *H* (10/04/20 5:42 PM) (10/04/20 7:05 PM) Blood Pressure [90-138/55-84 mm Hg] 139/88 mm Hg 126/ 67 mm Hg *H* (10/04/20 5:42 PM) (10/04/20 7:05 PM) Respiratory Rate [16-30 br/min] 20 br/min 20 br/mi n (10/04/20 7:05 PM) (10/04/20 5:42 PM) Temperature [96.8-100.4 DegF] 97.7 DegF 99.0 DegF (10/04/20 7:05 PM) (10/04/20 5:42 PM) Mode of Delivery (Oxygen) Room air Room air (10/04/20 7:05 PM) (10/04/20 5:42 PM) Blood pressure sites Arm, right (10/04/20 7:05 PM) Temperature Route Oral Oral (10/04/20 7:05 PM) (10/04/20 5:42 PM) Social History Social History Type Response Smoking Status Never (less than 100 in life time) entered on: 01/01/20 Sex
--- OUTSIDE RECORDS SUMMARY | 2021-12-30 21:53 | XMS_ITS | Continuity of Care Document ---
:1970 Author Organization [facility] Address [address] [place] [id number]- Care Team Providers Name Role Phone Sylvain FAITHNasima Primary Care Physician Encounter [facility] [place] Date(s): 09/03/20 - 10/24/20 [facility] [address] [place] [id number] Attending Physician: Not on Staff, Attending MD Allergies, Adverse Reactions, Alerts Substance Reaction Severity Status sulfADIAZINE Rash Active penicillins Rash Active Toradol Active Diamox1 C/O: itching Persistent Moderate Active Glutens rash Active droperidol Anaphylactic reaction Persistent Severe Active Keflex Rash Active 1itchy Immunizations Given and Recorded Vaccine Date Status Refusal Reason tetanus/diphtheria/pertussis, acel(Tdap) 08/16/20 Given tetanus/diphtheria/pertussis, acel(Tdap)1 02/19/13 Record ed influenza virus vaccine, inactivated 03/31/19 Given influenza virus vaccine, inactivated 12/04/17 Recorded pneumococcal 23-valent vaccine2 08/28/15 Recorded Not Given Vaccine Date Status Refusal Reason pneumococcal 23-valent vaccine3 01/04/18 Not Given Patient Refuses 1Result Comment: [05/03/2018] [id number] Comment: [05/03/2018] [id number] Note: pt stated she did not want to receive vaccine today, may want later Medications albuterol-ipratropium 3 mg-0.5 mg/3 ml inhalation solution 3 mL, Inhalation, 4 times a day, # 360 mL, 1 Refills, Maintenance, 12/13/19 8:19:00 EDT, Inhalation Solution, [facility], 3 mL Inhalation 4 times a day, 141, cm, 12/07/19 12:18:00 EDT, Height, 100.5, kg, 12/05/19 3:32:00 EDT, Dry Weight Start Date: 12/13/19 Status: OrderedApriso 0.375 g oral capsule, extended release 4 capsule = 1.5 Gm, By Mouth, Daily in AM, # 120 capsule, 4 Refills, Maintenance, 09/07/20 8:50:00 EDT, CR Capsule, [facility]/pharmacy #[id number], Partial fill upon patient [...] capsule, 3 Refills, Maintenance, 09/28/20 7:41:00 EDT, [facility]/pharmacy #[id number], 143, cm, 09/20/20 19:45:00 EDT, Height, 106.6, kg, 09/20/20 19:45:00 EDT, Dry Weight Start Date: 09/28/20 Stop Date: 01/26/21 Status: Orderedduloxetine 60 mg oral enteric coated capsule 1 capsule, By Mouth, Daily, # 30 capsule, 0 Refills, Maintenance, 11/21/19 12:43:00 EDT, [facility] [id number], 142, cm, 11/16/19 8:05:00 EDT, Height, 90.7, kg, 10/11/19 1:24:00 EDT, Dry Weight Start Date: 11/21/19 Status: OrderedDupixent 300 mg/2 mL subcutaneous solution 0 Refills, Maintenance, 11/17/19 4:27:00 EDT Start Date: 11/17/19 Status: Orderedfluticasone 50 mcg/inh nasal spray 1 sprays, Nares, Both, 2 times a day, 0 Refills, Maintenance, 11/17/19 4:21:00 EDT, [place] Start Date: 11/17/19 Status: Orderedlamotrigine 25 mg oral tablet 25 mg, 1, tablet, By Mouth, 2 times a day, # 60 tablet, Refills 0, Maintenance, 11/17/19 4:23:00 EDT Start Date: 11/17/19 Status: OrderedLasix 20 mg oral tablet 20 mg, 1, tablet, By Mouth, Daily, # 7 tablet, Refills 0, Tot. Refills 0, Maintenance, 07/15/20 22:03:00 EDT, Route to Pharmacy Electronically, [facility]/pharmacy #[id number], Partial fill upon patient [...] tablet, 0 Refills, Maintenance, 01/30/20 14:58:00 EST, [id number], 143, cm, 01/14/20 22:55:00 EDT, Height, 101, kg, 01/14/20 22:55:00 EDT, Dry Weight Start Date: 01/30/20 Status: Orderedlidocaine 4% topical film 1 patch, Topically, Daily, # 30 patch, 0 Refills, Maintenance, 01/06/20 10:41:00 EDT, Film, [facility] 3, 142, cm, 01/06/20 8:20:00 EDT, Height, 103, kg, 01/04/20 18:55:00 EDT, Dry Weight Start Date: 01/06/20 Stop Date: 02/05/20 Status: Orderedmagnesium oxide 400 mg (240 mg elemental magnesium) oral tablet 1 tablet, By Mouth, Daily, # 90 tablet, 3 Refills, Acute, 04/10/20 10:44:00 EST, [facility], 90, TAKE 1 TABLET BY MOUTH EVERY [...] 0 Refills, Maintenance, 12/19/19 13:39:00 EDT, Tablet, [facility]/pharmacy #[id number], 142, cm, 12/15/19 7:46:00 [...] 3 Refills, Maintenance, 01/10/20 7:53:00 EDT, Capsule, [facility]/pharmacy #[id number], 142, cm, 01/08/20 22:31:00 [...]
--- OUTSIDE RECORDS SUMMARY | 2021-12-30 21:53 | XMS_ITS | Continuity of Care Document ---
:1970 Author Organization [facility] Address [address] [place] [address]- Care Team Providers Name Role Phone Abidaterry Nasima FAITH Primary Care Physician Encounter [facility] [place] Date(s): 10/23/20 - 10/23/[address] [address]- Encounter Diagnosis Contusion of scalp (Final) - 10/23/20 Discharge Disposition: A-D/C Home Attending Physician: Mary Soria MD Admitting Physician: Mary Soria MD Referring Physician: Not on Staff, Referring [...] Not Given Patient Refuses 1Result Comment: [05/03/2018] [id number] Comment: [05/03/2018] [id number] Note: pt stated she did not want to receive vaccine today, may want later Medications albuterol-ipratropium 3 mg-0.5 mg/3 ml inhalation solution 3 mL, Inhalation, 4 times a day, # 360 mL, 1 Refills, Maintenance, 12/13/19 8:19:00 EDT, Inhalation Solution, [facility] 3, 3 mL Inhalation 4 times [...] capsule, 3 Refills, Maintenance, 09/28/20 7:41:00 EDT, [facility]/pharmacy #[id number], 143, cm, 09/20/20 19:45:00 EDT, Height, 106.6, kg, 09/20/20 19:45:00 EDT, Dry Weight Start Date: 09/28/20 Stop Date: 01/26/21 Status: Orderedduloxetine 60 mg oral enteric coated capsule 1 capsule, By Mouth, Daily, # 30 capsule, 0 Refills, Maintenance, 11/21/19 12:43:00 EDT, [facility] 159[facility], 142, cm, 11/16/19 8:05:00 EDT, Height, 90.7, [...] 07/15/20 22:03:00 EDT, Route to Pharmacy Electronically, [facility]/pharmacy #[id number], Partial fill upon patient request if the [...] tablet, 0 Refills, Maintenance, 01/30/20 14:58:00 EST, [facility] 8[facility]89, 143, cm, 01/14/20 22:55:00 EDT, Height, 101, [...] tablet, 3 Refills, Acute, 04/10/20 10:44:00 EST, [facility] 57552, 90, TAKE 1 TABLET BY MOUTH EVERY [...] 0 Refills, Maintenance, 12/19/19 13:39:00 EDT, Tablet, [facility]/pharmacy #[id number], 142, cm, 12/15/19 7:46:00 EDT, [...] 3 Refills, Maintenance, 01/10/20 7:53:00 EDT, Capsule, [facility]/pharmacy #[id number], 142, cm, 01/08/20 22:31:00 EDT, [...] [Reference Range]: 1 Oxygen Saturation [94-100 %] 97 % (10/23/20 4:50 PM) Pulse Rate [55-90 bpm] 81 bpm (10/23/20 4:50 PM) Blood Pressure [90-138/55-84 mm Hg] 124/61 mm Hg (10/23/20 4:50 PM) Respiratory Rate [16-30 br/min] 16 br/min (10/23/20 4:50 PM) Temperature [96.8-100.4 DegF] 99.0 DegF (10/23/20 4:50 PM) Mode of Delivery (Oxygen) Room air (10/23/20 4:50 PM) Blood pressure sites Arm, right (10/23/20 4:50 PM) Temperature Route Oral (10/23/20 4:50 PM) Social History Social History Type Response Smoking Status Never (less than 100 in life time) entered on: 01/01/20 Sex
--- OUTSIDE RECORDS SUMMARY | 2021-12-30 21:53 | XMS_ITS | Continuity of Care Document ---
:1970 Author Organization [facility] Address [address] [place] [id number]- Care Team Providers Name Role Phone Fidel Sheffield MD, Mohan Primary Care Physician Encounter [facility] Date(s): 03/11/19 - 03/11/[address] [address]- [facility] Attending Physician: Aleshia Rivera Allergies, Adverse Reactions, Alerts Substance Reaction Severity Status sulfADIAZINE Rash Active droperidol Anaphylactic reaction Persistent Severe Active penicillins Rash Active Keflex Rash Active Diamox1 C/O: itching Persistent Moderate Active Glutens rash Active 1itchy Immunizations Given and Recorded Vaccine Date Status Refusal Reason influenza virus vaccine, inactivated 12/04/17 Recorded pneumococcal 23-valent vaccine1 08/28/15 Recorded tetanus/diphtheria/pertussis, acel(Tdap)3 02/19/13 Record ed Not Given Vaccine Date Status Refusal Reason pneumococcal 23-valent vaccine2 01/04/18 Not Given Patient Refuses 1Result Comment: [05/03/2018] [id number] Comment: [05/03/2018] [id number] Note: pt stated she did not want [...] TAKE 1 TABLET BY MOUTH EVERY DAY, [facility]/pharmacy #[id number] Start Date: 12/06/18 Status: OrderedclonazePAM 1 [...] Start Date: 12/06/18 Stop Date: 12/13/18 Status: OrderedDisposable Enema 7 g-19 g rectal enema 1 each, Rectally, Once, PRN for constipation, # 230 mL, 0 Refills, Soft Stop, 01/16/19 23:17:25 EDT,En[place] Start Date: 01/16/19 Status: Ordereddivalproex sodium 250 mg oral enteric coated tablet See Instructions, take 1 tab daily at bedtime with your 500mg tablet for total of 750mg. total dailydose 1250mg with your am 500mg dose., # 30 tablet, 0 Refills, Maintenance, 12/27/18 11:15:30 EDT Start Date: 12/27/18 Status: Ordereddivalproex sodium 500 mg oral enteric coated tablet = 500 mg, By Mouth, Daily in AM, total daily dose is 1250mg with your bedtime 750mg dose., 0 Refills, Maintenance, 12/27/18 11:17:00 EDT, Tablet Start Date: 12/27/18 Status: Ordereddocusate calcium 240 mg oral capsule 1 capsule = 240 mg, By Mouth, Daily, PRN for constipation, # 10 capsule, 0 Refills, Maintenance, 02/09/19 1:40:39 EST, Capsule Start Date: 02/09/19 Status: Orderedduloxetine 60 mg oral enteric coated capsule = 120 mg, By Mouth, Daily, 0 Refills, Maintenance, 10/04/18 11:34:58 EDT, Capsule Start Date: 10/04/18 Status: Orderedlidocaine 5% topical film 1 patch, Topically, Daily, apply to lower back, # 30 patch, 0 Refills, Maintenance, 12/27/18 11:19:08 EDT, Patch, 1 patch Topically Daily,x30 days,Instr:apply to lower back Start Date: 12/27/18 Stop Date: 01/26/19 Status: OrderedLinzess = 290 mcg, By Mouth, Daily, 0 Refills, Maintenance, 02/19/19 5:44:41 EST Start Date: 02/19/19 Status: Orderedmagnesium citrate 8.85% oral liquid 300 mL = 17.45 Gm, By Mouth, Once, # 600 mL, 0 Refills, Soft Stop, 01/16/19 23:16:44 EDT, Liquid Start Date: 01/16/19 Status: Orderedmagnesium oxide 400 mg oral tablet 1 tablet = 400 mg, By Mouth, Daily, # 10 tablet, 0 Refills, Maintenance, 12/06/18 9:37:29 EDT, Tablet Start Date: 12/06/18 Stop Date: 12/16/18 Status: OrderedMiraLax oral powder for reconstitution = 17 Gm, By Mouth, Daily, dissolve in water before taking, # 255 Gm, 0 Refills, Acute 04/06/19 21:00:00 EST, 02/20/19 14:39:29 EST, REC Powder, 17 Gm By Mouth Daily,Instr:dissolve in water before taking Start Date: 02/20/19 Stop Date: 04/06/19 Status: OrderedMontelukast = 10 mg, By Mouth, [...] 11:33:33 EDT, Inhaler Start Date: 10/04/18 Status: OrderedProtonix 20 mg oral delayed release tablet = 20 mg, By Mouth, 2 times a day, # 30 tablet, 2 Refills, Maintenance, 11/30/18 11:58:00 EDT, EC Tablet Start Date: 11/30/18 Stop Date: 02/28/19 Status: OrderedReglan 10 mg oral tablet 1 tablet = 10 mg, By Mouth, 0 Refills, Maintenance, 12/06/18 9:23:22 EDT Start Date: 12/06/18 Status: Orderedsimethicone 80 mg oral tablet, chewable [...] in Active partial remission(Confirmed) Celiac disease(Confirmed) Active Fibromyalgia(Confirmed) Active GERD (gastroesophageal reflux Active [...]
--- OUTSIDE RECORDS SUMMARY | 2021-12-30 21:53 | XMS_ITS | Continuity of Care Document ---
:1970 Author Organization [facility] Address [address] [place] [address]- Care Team Providers Name Role Phone Edie Bee MD Primary Care Physician [phone] Encounter [facility] Date(s): 08/16/21 - 09/15/21 [facility] [place] [address] [place], [place] [address] Allergies, Adverse Reactions, Alerts Substance Reaction Severity Status sulfADIAZINE Rash Active droperidol Anaphylactic reaction Persistent Severe Active penicillins Rash Active Toradol1, 2 Active Keflex Rash Active Glutens rash Active 1abd upset with [id number] upset Immunizations Given and Recorded Vaccine Date [...] Not Given Patient Refuses 1Result Comment: [05/03/2018] [id number] Comment: [05/03/2018] [id number] Note: pt stated she did not want [...] tablet, 1 Refills, Maintenance, 12/23/19 16:02:00 EDT, [facility]/pharmacy #[id number], 142, cm, 12/15/19 [...] 05/29/21 18:11:00 EST, Route to Pharmacy Electronically, [facility]/pharmacy #[id number], Partial fill upon patient request if the prescriptio... Start Date: 05/29/21 Status: OrderedDaily-Madi with Iron oral tablet 1 tablet, By Mouth, Daily, # 90 tablet, 1 Refills, Maintenance, 12/02/19 14:20:00 EDT, [facility]/pharmacy #[id number], 1 tablet By [...] capsule, 3 Refills, Maintenance, 09/28/20 7:41:00 EDT, [facility]/pharmacy #[id number], 143, cm, 09/20/20 19:45:00 EDT, Height, 106.6, kg, 09/20/20 19:45:00 EDT, Dry Weight Start Date: 09/28/20 Stop Date: 01/26/21 Status: Orderedduloxetine 60 mg oral enteric coated capsule 1 capsule, By Mouth, Daily, # 30 capsule, 0 Refills, Maintenance, 11/21/19 12:43:00 EDT, [facility], 142, cm, 11/16/19 8:05:00 EDT, Height, 90.7, kg, 10/11/19 1:24:00 EDT, Dry Weight Start Date: 11/21/19 Status: OrderedDupixent 300 mg/2 mL subcutaneous solution Every 14 days, 0 Refills, Maintenance, 11/17/19 4:27:00 EDT Start Date: 11/17/19 Status: Orderedfluticasone 50 mcg/inh nasal spray 1 sprays, Nares, Both, 2 times a day, 0 Refills, Maintenance, 11/17/19 4:21:00 EDT, [place] Start Date: 11/17/19 Status: OrderedImodium A-D 2 mg oral tablet 2 mg, 1, tablet, By Mouth, Every 4 hours, PRN, # 10 tablet, Refills 0, Tot. Refills 0, Maintenance, for loose stool, 07/27/21 19:52:00 EDT, Route to Pharmacy Electronically, [facility]/pharmacy #[id number], Partialfill upon patient request if the prescription is... Start Date: 07/27/21 Status: Orderedindomethacin 25 mg oral capsule 1 capsule = 25 mg, By Mouth, 3 times a day, PRN for arthritis, with food or milk, # 21 capsule, 0 Refills, Maintenance, 09/03/21 11:42:00 EDT, Capsule, [facility], Partial fill upon patient [...] Refills, Maintenance, 01/30/20 14:58:00 EST, [facility], 143, cm, 01/14/20 22:55:00 EDT, Height, 101, kg, 01/14/20 22:55:00 EDT, Dry Weight Start Date: 01/30/20 Status: Orderedlidocaine 5% topical film 1 patch, Topically, Daily, PRN Pain , Mild, remove after 12 hours, # 13 each, 0 Refills, Maintenance, 08/22/21 22:17:00 EDT, Film, [facility]/pharmacy #[id number], Partial fill upon patient request if the prescription is for a schedule II opioid drug., 1 patch Top... Start Date: 08/22/21 Status: Orderedmagnesium oxide 400 mg oral tablet 1 tablet, By Mouth, Daily, # 90 tablet, 3 Refills, [facility], 143, cm, 04/02/21 3:19:00 EST, Height, 96.2, kg, 04/02/21 3:19:00 EST, Dry Weight Start Date: 04/08/21 Status: Orderedmesalamine 0.375 g oral capsule, extended release 4 capsule, By Mouth, Daily in AM, # 120 capsule, 4 Refills, [facility], 142, cm, 09/03/21 11:20:00 EDT, Height, 90.4, [...] 5 Refills, Maintenance, 05/15/21 14:16:00 EST, Powder, [facility]/pharmacy #[id number], Partial fill upon [...] 0 Refills,Maintenance, 04/01/21 23:03:00 EST, Tablet, [id number], Partial fill upon patient request ifthe prescription [...]
--- OUTSIDE RECORDS SUMMARY | 2021-12-30 21:53 | XMS_ITS | Continuity of Care Document ---
:1970 Author Organization [facility] Address [address] [place] [address]- Care Team Providers Name Role Phone Nasima Narayan DO Primary Care Physician Encounter [facility] [place] Date(s): 01/14/20 - 01/14/[address] [address]- [facility] Encounter Diagnosis Precordial chest pain (Final) - 01/14/20 Discharge Disposition: A-D/C Home Attending Physician: Ramon Brambila DO Admitting Physician: Ramon Brambila DO Referring Physician: Not on Staff, Referring [...] Not Given Patient Refuses 1Result Comment: [05/03/2018] [id number] Comment: [05/03/2018] [id number] Note: pt stated she did not want to receive vaccine today, may want later Medications albuterol-ipratropium 3 mg-0.5 mg/3 ml inhalation solution 3 mL, Inhalation, 4 times a day, # 360 mL, 1 Refills, Maintenance, 12/13/19 8:19:00 EDT, Inhalation Solution, [facility] 3, 3 mL Inhalation 4 times a [...] 01/06/20 10:18:00 EDT, Route to Pharmacy Electronically, [facility], 142, cm, 01/06/20 8:20:00EDT, Height, 103, kg, 01/04/20 18:55:00 EDT, Dry... Start Date: 01/06/20 Status: Orderedcetirizine 10 mg oral tablet 1 tablet, By Mouth, Daily, # 90 tablet, 1 Refills, Maintenance, 12/23/19 16:02:00 EDT, [facility]/pharmacy #[id number], 142, cm, 12/15/19 7:46:00 EDT, [...] 1 Refills, Maintenance, 12/02/19 14:20:00 EDT, [facility]/pharmacy #[id number], 1 tablet By Mouth Daily, 142, cm, 11/23/19 23:52:00 EDT, Height, 90.7, kg, 10/11/19 1:24:00 EDT, Dry Weight Start Date: 12/02/19 Status: Ordereddicyclomine 10 mg oral capsule 1 capsule = 10 mg, By Mouth, 3 times a day, PRN as needed for abdominal cramps, # 30 capsule, 0 Refills, Maintenance, 12/19/19 13:37:00 EDT, [facility]/pharmacy #0859, 142, cm, 12/15/19 7:46:00 EDT, Height, 91, kg, 12/13/19 15:07:00 EDT, Dry Weight Start Date: 12/19/19 Status: Orderedduloxetine 60 mg oral enteric coated capsule 1 capsule, By Mouth, Daily, # 30 capsule, 0 Refills, Maintenance, 11/21/19 12:43:00 EDT, [facility] STORE 11283, 142, cm, 11/16/19 8:05:00 EDT, Height, 90.7, kg, 10/11/19 1:24:00 EDT, Dry Weight Start Date: 11/21/19 Status: OrderedDupixent 300 mg/2 mL subcutaneous solution 0 Refills, Maintenance, 11/17/19 4:27:00 EDT Start Date: 11/17/19 Status: OrderedFioricet oral capsule 2 capsule, By Mouth, Every 4 hours, PRN as needed, not to exceed 6 capsules/day, # 12 capsule, 0 Refills, Acute 01/17/20 21:51:00 EDT, 01/14/20 21:50:00 EDT, Capsule, [facility]/pharmacy #0859, 2 capsule By Mouth Every 4 hours,PRN:as needed,Instr:not to exce... Start Date: 01/14/20 Stop Date: 01/17/20 Status: Orderedfluticasone 50 mcg/inh nasal spray 1 sprays, Nares, Both, 2 times a day, 0 Refills, Maintenance, 11/17/19 4:21:00 EDT, [place] Start Date: 11/17/19 Status: Orderedlamotrigine 25 mg [...] Refills, Maintenance, 01/06/20 10:41:00 EDT, Film, [facility] 3, 142, cm, 01/06/20 8:20:00 [...] tablet, 0 Refills, Maintenance, 11/23/19 18:18:00 EDT, [facility] STORE 76330, 142, cm, 11/16/19 8:05:00 EDT, Height, 90.7, kg, 10/11/19 1:24:00 EDT, Dry Weight Start Date: 11/23/19 Status: Orderedmontelukast 10 mg oral tablet 10 mg, 1, tablet, By Mouth, Daily in PM, # 30 tablet, Refills 0, Maintenance, 11/17/19 4:22:00 EDT Start Date: 11/17/19 Status: Orderednystatin 160924 u/ml oral suspension 1 mL = 100,000 units, By Mouth, 4 times a day, # 30 mL, 0 Refills, Maintenance, 11/17/19 4:28:00 EDT, Susp[place] Start Date: 11/17/19 Status: Orderedondansetron 4 mg oral tablet 1 tablet = 4 mg, By Mouth, Every 8 hours, PRN Nausea & Vomiting, # 10 tablet, 0 Refills, Maintenance, 12/19/19 13:39:00 EDT, Tablet, [facility]/pharmacy #[id number], 142, cm, 12/15/19 7:46:00 EDT, [...] 3 Refills, Maintenance, 01/10/20 7:53:00 EDT, Capsule, [facility]/pharmacy #0859, 142, cm, 01/08/20 22:31:00 EDT, Height, 100, kg, 01/08/20 22:31:00 EDT, Dry Weight Start Date: 01/10/20 Status: OrderedQUEtiapine 200 mg oral tablet 200 mg, 1, tablet, By Mouth, 2 times a day, # 180 tablet, Refills 0, Maintenance, 11/17/19 4:26:00 EDT Start Date: 11/17/19 Status: OrderedReglan 10 mg oral tablet 1 tablet = 10 mg, By Mouth, 3 times a day, for 3 days, # 9 tablet, 0 Refills, Acute 01/17/20 21:50:00 EDT, 01/14/20 21:50:00 EDT, Tablet, [facility], 143, cm, 01/14/20 20:49:00 EDT, Height, 101, kg, 01/14/20 20:49:00 EDT, Dry Weight Start Date: 01/14/20 Stop Date: 01/17/20 Status: OrderedSpiriva = 18 mcg, Inhalation, Daily, [...] 01/06/20 10:19:00 EDT, Route to Pharmacy Electronically, [facility] 3, 142, cm, 01/06/20 8:20:00 EDT, Height, [...] Exam Date Time Procedure Performing Provider Status 01/14/20 1:31 AM Chest Portable Chuck Fernandes; Jairo (Verified ) Notes:(Chest Portable) Reason For Exam: Chest Pain;Other:RESULT: Chest Portable Chest Portable Hx of Present Illness: headache and sob, states 5# weight gain and coughing up frothy bloody sputum;Reason: Other:; Chest Pain; Clinical Question(s): Other: COMPARISON: 01/08/2020. FINDINGS: LINES AND TUBES: None. LUNGS AND PLEURA: Clear lungs. Normal pulmonary vascularity. No pleural effusion. No pneumothorax. HEART, MEDIASTINUM AND REY: Heart is normal in size. Normal mediastinal and hilar contour. BONES AND SOFT TISSUES: There is a stable levocurvature of the thoracolumbar spine. IMPRESSION: No acute abnormality. WSN: [id number] Ordering Physician: Tonya Finch Dictated By: Joseline Kumar MD Dictated Date/Time: 01/14/20 6:57 am Reviewed By: Joseline Kumar MD Signed By: Joseline Kumar MD Signed Date/Time: 01/14/20 6:57 am Transcribed By: ANAYELI Transcribed Date/Time: 01/14/20 6:55 am Vital Signs Most recent to oldest 1 2 3 [Reference Range]: Oxygen Saturation [94-100 99 % 98 % 92 % %] (01/14/20 10:19 AM) (01/14/20 6:19 AM) *L* (01/14/20 4:48 A M) Pulse Rate [55-90 bpm] 91 bpm 91 bpm 92 bpm *H* *H* *H* (01/14/20 10:19 AM) (01/14/20 6:19 AM) (01/14/20 4:48 AM) Blood Pressure 151/99 mm Hg 128/82 mm Hg 150/70 mm Hg [90-138/55-84 mm Hg] *H* (01/14/20 6:19 AM) *H* (01/14/20 10:19 AM) (01/14/20 4: 48 AM) Respiratory Rate [16-30 18 br/min 11 br/min 20 br/mi n br/min] (01/14/20 10:19 AM) *L* (01/14/20 4: 48 AM) (01/14/20 6:19 AM) Temperature [96.8-100.4 97.8 DegF 97.6 DegF 98.3 Deg F DegF] (01/14/20 10:19 AM) (01/14/20 4:48 AM) (01/14/20 2:38 AM) Mode of Delivery (Oxygen) Room air Room air Room a ir (01/14/20 10:19 AM) (01/14/20 6:19 AM) (01/14/20 4:48 AM) Blood pressure sites Arm, left Arm, right Arm, right (01/14/20 6:19 AM) (01/14/20 4:48 AM) (01/14/20 2:38 AM) Temperature Route Oral Oral Oral (01/14/20 10:19 AM) (01/14/20 4:48 AM) (01/14/20 2:38 AM) Social History Social History Type Response Smoking Status Never (less than 100 in life time) entered on: 01/01/20 Sex
--- OUTSIDE RECORDS SUMMARY | 2021-12-30 21:53 | XMS_ITS | Continuity of Care Document ---
:1970 Author Organization [facility] Address [address] [place] [address]- Care Team Providers Name Role Phone Nasima Narayan DO Primary Care Physician Encounter [facility] [place] Date(s): 06/15/20 - 06/16/[address] [address]- Discharge Disposition: A-D/C Home Attending Physician: Fernando Westfall MD Admitting Physician: Fernando Westfall MD Referring Physician: Not on Staff, Referring [...] Not Given Patient Refuses 1Result Comment: [05/03/2018] [id number] Comment: [05/03/2018] [id number] Note: pt stated she did not want to receive vaccine today, may want later Medications albuterol-ipratropium 3 mg-0.5 mg/3 ml inhalation solution 3 mL, Inhalation, 4 times a day, # 360 mL, 1 Refills, Maintenance, 12/13/19 8:19:00 EDT, Inhalation Solution, [facility], 3 mL Inhalation [...] 06/21/20 0:32:00 EDT, 06/16/20 0:32:00 EDT, Capsule, [facility]/pharmacy #[id number], Partial fill [...] 10:18:00 EDT, Route to Pharmacy Electronically, [facility], 142, cm, 01/06/20 8:20:00EDT, Height, [...] capsule, 0 Refills, Maintenance, 11/21/19 12:43:00 EDT, [facility] STORE 75986, 142, cm, 11/16/19 8:05:00 EDT, Height, 90.7, kg, 10/11/19 1:24:00 EDT, Dry Weight Start Date: 11/21/19 Status: OrderedDupixent 300 mg/2 mL subcutaneous solution 0 Refills, Maintenance, 11/17/19 4:27:00 EDT Start Date: 11/17/19 Status: Orderedfluticasone 50 mcg/inh nasal spray 1 sprays, Nares, Both, 2 times a day, 0 Refills, Maintenance, 11/17/19 4:21:00 EDT, [place] Start Date: 11/17/19 Status: Orderedlamotrigine 25 mg [...] tablet, 0 Refills, Maintenance, 01/30/20 14:58:00 EST, [facility] STORE 66596, 143, cm, 01/14/20 22:55:00 EDT, Height, 101, [...] tablet, 3 Refills, Acute, 04/10/20 10:44:00 EST, [facility] STORE 21338, 90, TAKE 1 TABLET BY MOUTH EVERY DAY, 143, cm, 03/27/20 7:23:00 EST, Height, 101, kg, 01/14/20 22:55:00EDT, Dry Weight Start Date: 04/10/20 Status: Orderedmeloxicam 7.5 mg oral tablet 1 tablet, By Mouth, Daily, # 30 tablet, 0 Refills, Maintenance, 11/23/19 18:18:00 EDT, [facility], 142, cm, 11/16/19 8:05:00 EDT, Height, 90.7, [...] 3 Refills, Maintenance, 01/10/20 7:53:00 EDT, Capsule, [facility]/pharmacy #[id number], 142, cm, 01/08/20 22:31:00 EDT, [...] tablet, 0 Refills,Maintenance, 06/08/20 22:23:00 EST, Tablet, [facility]/pharmacy #[id number], Partial fill upon patient request ifthe prescription is for a schedule II opioid drug... Start Date: 06/08/20 Status: OrderedZofran 4 mg oral tablet 1 tablet = 4 mg, By Mouth, Every 8 hours, PRN as needed for nausea/vomiting, # 8 tablet, 0 Refills, Maintenance, 06/06/20 13:07:00 EST, Tablet, [facility]/pharmacy #[id number], Partial fill upon [...] Exam Date Time Procedure Performing Provider Status 06/15/20 9:48 PM Chest 2 Views Frontal and Lat Susan Anglin; Jennifer th (Verified) Notes:(Chest 2 Views Frontal and Lat) Reason For Exam: Chest Pain;Other:RESULT: Chest 2 Views Frontal and Lat Chest 2 Views Frontal and Lat Hx of Present Illness: here today with complaints of cough, CP and SOB starting last night. given 324 ASA by EMS; Reason: Other:; Chest Pain; Clinical Question(s): Other: COMPARISON: 06/08/2020 FINDINGS: LINES AND TUBES: None. LUNGS AND PLEURA: Clear lungs. Normal pulmonary vascularity. No pleural effusion. No pneumothorax. HEART, MEDIASTINUM AND REY: Heart is normal in size. Normal upper mediastinal and hilar contour. BONES AND SOFT TISSUES: No acute abnormality. IMPRESSION: No acute abnormality. WSN: [id number] Ordering Physician: Edie Chavez Dictated By: Ralf Thomas MD Dictated Date/Time: 06/15/20 9:53 pm Reviewed By: Ralf Thomas MD Signed By: Ralf Thomas MD Signed Date/Time: 06/15/20 9:53 pm Transcribed By: ANAYELI Transcribed Date/Time: 06/15/20 9:53 pm Vital Signs Most recent to oldest 1 2 3 [Reference Range]: Oxygen Saturation [94-100 %] 98 % 96 % 100 % (06/16/20 1:13 AM) (06/15/20 11:02 PM) (06/15/20 8: 09 PM) Pulse Rate [55-90 bpm] 75 bpm 76 bpm 73 bpm (06/16/20 1:13 AM) (06/15/20 11:02 PM) (06/15/20 8: 09 PM) Blood Pressure [90-138/55-84 125/76 mm Hg 114/73 mm Hg 135 /73 mm Hg mm Hg] (06/16/20 1:13 AM) (06/15/20 11:02 PM) (06/15/20 8: 09 PM) Respiratory Rate [16-30 18 br/min 18 br/min 20 br/mi n br/min] (06/16/20 1:13 AM) (06/15/20 11:02 PM) (06/15/20 8: 09 PM) Temperature [96.8-100.4 DegF] 98.3 DegF 98.6 DegF 99 DegF (06/16/20 1:13 AM) (06/15/20 11:02 PM) (06/15/20 8: 09 PM) Mode of Delivery (Oxygen) Room air Room air Room a ir (06/16/20 1:13 AM) (06/15/20 11:02 PM) (06/15/20 8: 09 PM) Blood pressure sites Arm, left Arm, left Arm, left (06/16/20 1:13 AM) (06/15/20 11:02 PM) (06/15/20 8: 09 PM) Temperature Route Oral Oral Oral (06/16/20 1:13 AM) (06/15/20 11:02 PM) (06/15/20 8: 09 PM) Social History Social History Type Response Smoking Status Never (less than 100 in life time) entered on: 01/01/20 Sex
--- OUTSIDE RECORDS SUMMARY | 2021-12-30 21:53 | XMS_ITS | Continuity of Care Document ---
:1970 Author Organization [facility] Address [address] [place] [address]- Care Team Providers Name Role Phone Nasima Narayan DO Primary Care Physician Encounter [facility] [place] Date(s): 06/15/20 - 09/12/20 [facility] [address] [place] [id number] Attending Physician: Jack De La Cruz DO Admitting Physician: Jack De La Cruz DO Referring Physician: Nasima Narayan DO Allergies, Adverse Reactions, Alerts Substance Reaction Severity Status sulfADIAZINE Rash Active penicillins Rash Active Toradol Active Keflex Rash Active Diamox1 C/O: itching Persistent Moderate Active Glutens rash Active droperidol Anaphylactic reaction Persistent Severe Active 1itchy Immunizations Given and Recorded Vaccine Date Status Refusal Reason tetanus/diphtheria/pertussis, acel(Tdap) 08/16/20 Given tetanus/diphtheria/pertussis, acel(Tdap)1 02/19/13 Record ed influenza virus vaccine, inactivated 03/31/19 Given influenza virus vaccine, inactivated 12/04/17 Recorded pneumococcal 23-valent vaccine2 08/28/15 Recorded Not Given Vaccine Date Status Refusal Reason pneumococcal 23-valent vaccine3 01/04/18 Not Given Patient Refuses 1Result Comment: [05/03/2018] [id number] Comment: [05/03/2018] [id number] Note: pt stated she did not want to receive vaccine today, may want later Medications albuterol-ipratropium 3 mg-0.5 mg/3 ml inhalation solution 3 mL, Inhalation, 4 times a day, # 360 mL, 1 Refills, Maintenance, 12/13/19 8:19:00 EDT, Inhalation Solution, [facility], 3 mL Inhalation 4 times a day, 141, cm, 12/07/19 12:18:00 EDT, Height, 100.5, kg, 12/05/19 3:32:00 EDT, Dry Weight Start Date: 12/13/19 Status: OrderedApriso 0.375 g oral capsule, extended release 4 capsule = 1.5 Gm, By Mouth, Daily in AM, # 120 capsule, 4 Refills, Maintenance, 09/07/20 8:50:00 EDT, CR Capsule, [facility]/pharmacy #[id number], Partial fill upon [...] 01/06/20 10:18:00 EDT, Route to Pharmacy Electronically, [facility], 142, cm, 01/06/20 8:20:00EDT, Height, 103, kg, 01/04/20 18:55:00 EDT, Dry... Start Date: 01/06/20 Status: Orderedcetirizine 10 mg oral tablet 1 tablet, By Mouth, Daily, # 90 tablet, 1 Refills, Maintenance, 12/23/19 16:02:00 EDT, [facility]/pharmacy #0859, 142, cm, 12/15/19 [...] tablet, 1 Refills, Maintenance, 12/02/19 14:20:00 EDT, [facility]/pharmacy #[id number], 1 tablet By [...] capsule, 3 Refills, Maintenance, 06/30/20 12:45:00 EDT, [facility]/pharmacy #0859, 142, cm, 06/27/20 14:47:00 EDT, Height, 100, kg, 06/18/20 15:45:00 EDT, Dry Weight Start Date: 06/30/20 Stop Date: 10/28/20 Status: Orderedduloxetine 60 mg oral enteric coated capsule 1 capsule, By Mouth, Daily, # 30 capsule, 0 Refills, Maintenance, 11/21/19 12:43:00 EDT, [facility] STORE 97387, 142, cm, 11/16/19 8:05:00 EDT, Height, 90.7, kg, 10/11/19 1:24:00 EDT, Dry Weight Start Date: 11/21/19 Status: OrderedDupixent 300 mg/2 mL subcutaneous solution 0 Refills, Maintenance, 11/17/19 4:27:00 EDT Start Date: 11/17/19 Status: Orderedfluticasone 50 mcg/inh nasal spray 1 sprays, Nares, Both, 2 times a day, 0 Refills, Maintenance, 11/17/19 4:21:00 EDT, [place] Start Date: 11/17/19 Status: Orderedlamotrigine 25 mg oral tablet 25 mg, 1, tablet, By Mouth, 2 times a day, # 60 tablet, Refills 0, Maintenance, 11/17/19 4:23:00 EDT Start Date: 11/17/19 Status: OrderedLasix 20 mg oral tablet 20 mg, 1, tablet, By Mouth, Daily, # 7 tablet, Refills 0, Tot. Refills 0, Maintenance, 07/15/20 22:03:00 EDT, Route to Pharmacy Electronically, [facility]/pharmacy #[id number], Partial fill upon patient request if the [...] tablet, 0 Refills, Maintenance, 01/30/20 14:58:00 EST, [facility] STORE 33684, 143, cm, 01/14/20 22:55:00 EDT, Height, 101, kg, 01/14/20 22:55:00 EDT, Dry Weight Start Date: 01/30/20 Status: Orderedlidocaine 4% topical film 1 patch, Topically, Daily, # 30 patch, 0 Refills, Maintenance, 01/06/20 10:41:00 EDT, Film, [facility] 3, 142, cm, 01/06/20 8:20:00 EDT, Height, 103, kg, 01/04/20 18:55:00 EDT, Dry Weight Start Date: 01/06/20 Stop Date: 02/05/20 Status: Orderedmagnesium oxide 400 mg (240 mg elemental magnesium) oral tablet 1 tablet, By Mouth, Daily, # 90 tablet, 3 Refills, Acute, 04/10/20 10:44:00 EST, [facility] STORE 56155, 90, TAKE 1 TABLET BY MOUTH EVERY DAY, 143, cm, 03/27/20 7:23:00 EST, Height, 101, kg, 01/14/20 22:55:00EDT, Dry Weight Start Date: 04/10/20 Status: Orderedmeloxicam 7.5 mg oral tablet 1 tablet, By Mouth, Daily, # 30 tablet, 0 Refills, Maintenance, 11/23/19 18:18:00 EDT, [facility], 142, cm, 11/16/19 8:05:00 EDT, Height, 90.7, [...] 0 Refills, Maintenance, 12/19/19 13:39:00 EDT, Tablet, [facility]/pharmacy #0859, 142, cm, 12/15/19 [...] 3 Refills, Maintenance, 01/10/20 7:53:00 EDT, Capsule, [facility]/pharmacy #[id number], 142, cm, 01/08/20 [...]
--- OUTSIDE RECORDS SUMMARY | 2021-12-30 21:53 | XMS_ITS | Continuity of Care Document ---
:1970 Author Organization [facility] Address [address] [place] [id number]- Care Team Providers Name Role Phone Edie Bee MD Primary Care Physician Encounter [facility] [place] Date(s): 10/17/21 - 11/16/21 [facility] [address] [place] [address]- Allergies, Adverse Reactions, Alerts Substance Reaction Severity Status sulfADIAZINE Rash Active droperidol Anaphylactic reaction Persistent Severe Active penicillins Rash Active Toradol1, 2 Active Keflex Rash Active Glutens rash Active 1abd upset with [id number] upset Immunizations Given and Recorded Vaccine Date [...] Not Given Patient Refuses 1Result Comment: [05/03/2018] [id number] Comment: [05/03/2018] [id number] Note: pt stated she did not want [...] tablet, 1 Refills, Maintenance, 12/23/19 16:02:00 EDT, [facility]/pharmacy #[id number], 142, cm, 12/15/19 7:46:00 EDT, [...] 05/29/21 18:11:00 EST, Route to Pharmacy Electronically, [facility]/pharmacy #[id number], Partial fill upon patient request [...] ABDOMINAL CRAMPS, # 90 capsule, 0 Refills, [facility], 143, cm, 10/16/21 19:52:00 EDT, Height, 88.5, kg, 10/16/21 19:52:00 EDT, Dry Weight Start Date: 10/17/21 Status: Orderedduloxetine 60 mg oral enteric coated capsule 1 capsule, By Mouth, Daily, # 30 capsule, 0 Refills, Maintenance, 11/21/19 12:43:00 EDT, [facility] STORE 53238, 142, cm, 11/16/19 8:05:00 EDT, Height, 90.7, kg, 10/11/19 1:24:00 EDT, Dry Weight Start Date: 11/21/19 Status: OrderedDupixent 300 mg/2 mL subcutaneous solution Every 14 days, 0 Refills, Maintenance, 11/17/19 4:27:00 EDT Start Date: 11/17/19 Status: Orderedfluticasone 50 mcg/inh nasal spray 1 sprays, Nares, Both, 2 times a day, 0 Refills, Maintenance, 11/17/19 4:21:00 EDT, [place] Start Date: 11/17/19 Status: OrderedImodium A-D 2 mg oral tablet 2 mg, 1, tablet, By Mouth, Every 4 hours, PRN, # 10 tablet, Refills 0, Tot. Refills 0, Maintenance, for loose stool, 07/27/21 19:52:00 EDT, Route to Pharmacy Electronically, [facility]/pharmacy #[id number], Partialfill upon patient request if the prescription is... Start Date: 07/27/21 Status: Orderedindomethacin 25 mg oral capsule 1 capsule = 25 mg, By Mouth, 3 times a day, PRN for arthritis, with food or milk, # 21 capsule, 0 Refills, Maintenance, 09/03/21 11:42:00 EDT, Capsule, [facility], Partial fill upon patient [...] Refills, Maintenance, 01/30/20 14:58:00 EST, [facility], 143, cm, 01/14/20 22:55:00 EDT, Height, 101, [...] Mouth, Daily, # 90 tablet, 3 Refills, [facility] STORE 82504, 143, cm, 04/02/21 3:19:00 EST, Height, 96.2, [...]
--- OUTSIDE RECORDS SUMMARY | 2021-12-30 21:53 | XMS_ITS | Continuity of Care Document ---
:1970 Author Organization [facility] Address [address] [place] [phone]- Care Team Providers Name Role Phone Nasima Narayan DO Primary Care Physician [place] [facility] 12/30/20 - 12/31/[address] [address]- Discharge Disposition: A-D/C Walkout Attending Physician: Not [...] Not Given Patient Refuses 1Result Comment: [05/03/2018] [id number] Comment: [05/03/2018] [id number] Note: pt stated she did not want to receive vaccine today, may want later Medications albuterol-ipratropium 3 mg-0.5 mg/3 ml inhalation solution 3 mL, Inhalation, 4 times a day, # 360 mL, 1 Refills, Maintenance, 12/13/19 8:19:00 EDT, Inhalation Solution, [facility], 3 mL Inhalation 4 times [...] 3 Refills, Maintenance, 09/28/20 7:41:00 EDT, [facility]/pharmacy #[id number], 143, cm, 09/20/20 19:45:00 EDT, Height, 106.6, kg, 09/20/20 19:45:00 EDT, Dry Weight Start Date: 09/28/20 Stop Date: 01/26/21 Status: Orderedduloxetine 60 mg oral enteric coated capsule 1 capsule, By Mouth, Daily, # 30 capsule, 0 Refills, Maintenance, 11/21/19 12:43:00 EDT, [facility], 142, cm, 11/16/19 8:05:00 EDT, Height, 90.7, kg, 10/11/19 1:24:00 EDT, Dry Weight Start Date: 11/21/19 Status: OrderedDupixent 300 mg/2 mL subcutaneous solution Every 14 days, 0 Refills, Maintenance, 11/17/19 4:27:00 EDT Start Date: 11/17/19 Status: Orderedfluticasone 50 mcg/inh nasal spray 1 sprays, Nares, Both, 2 times a day, 0 Refills, Maintenance, 11/17/19 4:21:00 EDT, [place] Start Date: 11/17/19 Status: Orderedlamotrigine 25 mg [...] tablet, 0 Refills, Maintenance, 01/30/20 14:58:00 EST, [facility] STORE 44840, 143, cm, 01/14/20 22:55:00 EDT, Height, 101, kg, 01/14/20 22:55:00 EDT, Dry Weight Start Date: 01/30/20 Status: Orderedlidocaine 4% topical film 1 patch, Topically, Daily, # 30 patch, 0 Refills, Maintenance, 01/06/20 10:41:00 EDT, Film, [facility] 3, 142, cm, 01/06/20 8:20:00 EDT, Height, 103, kg, 01/04/20 18:55:00 EDT, Dry Weight Start Date: 01/06/20 Stop Date: 02/05/20 Status: Orderedlidocaine 5% topical film 1 patch, Topically, Daily, PRN Pain , Mild, remove after 12 hours, # 13 each, 0 Refills, Maintenance, 11/04/20 23:32:00 EDT, Film, [facility]/pharmacy #[id number], Partial fill upon patient request if the prescription is for a schedule II opioid drug., 1 patch Top... Start Date: 11/04/20 Status: Orderedmagnesium oxide 400 mg (240 mg elemental magnesium) oral tablet 1 tablet, By Mouth, Daily, # 90 tablet, 3 Refills, Acute, 04/10/20 10:44:00 EST, [facility] STORE 19118, 90, TAKE 1 TABLET BY MOUTH EVERY [...] Range]: Oxygen Saturation [94-100 %] 100 % 99 % 100 % (12/31/20 5:35 AM) (12/31/20 2:34 AM) (12/30/20 10: 40 PM) Pulse Rate [55-90 bpm] 76 bpm 72 bpm 69 bpm (12/31/20 5:35 AM) (12/31/20 2:34 AM) (12/30/20 10: 40 PM) Blood Pressure [90-138/55-84 143/77 mm Hg 122/88 mm Hg 132 /82 mm Hg mm Hg] *H* (12/31/20 2:34 AM) (12/30/20 10:40 PM) (12/31/20 5:35 AM) Respiratory Rate [16-30 20 br/min 18 br/min 20 br/mi n br/min] (12/31/20 5:35 AM) (12/31/20 2:34 AM) (12/30/20 10: 40 PM) Temperature [96.8-100.4 DegF] 97.4 DegF 98.1 DegF 98 .0 DegF (12/31/20 5:35 AM) (12/31/20 2:34 AM) (12/30/20 10: 40 PM) Mode of Delivery (Oxygen) Room air Room air Room a ir (12/31/20 5:35 AM) (12/31/20 2:34 AM) (12/30/20 10: 40 PM) Blood pressure sites Arm, right Arm, left Arm, left (12/31/20 5:35 AM) (12/31/20 2:34 AM) (10/3/21 10: 40 PM) Temperature Route Oral Oral Oral (12/31/20 5:35 AM) (12/31/20 2:34 AM) (12/30/20 10: 40 PM) Social History Social History Type Response Smoking Status Never (less than 100 in life time) entered on: 01/01/20 Sex
--- OUTSIDE RECORDS SUMMARY | 2021-12-30 21:53 | XMS_ITS | Continuity of Care Document ---
:1970 Author Organization [facility] Address [address] [place] [address]- Care Team Providers Name Role Phone Nasima Narayan DO Primary Care Physician Encounter [facility] Date(s): 06/26/20 - 07/26/20 [facility] [address] [address] Attending Physician: Vinny Cornejo Admitting Physician: [...] Not Given Patient Refuses 1Result Comment: [05/03/2018] [id number] Comment: [05/03/2018] [id number] Note: pt stated she did not want to receive vaccine today, may want later Medications albuterol-ipratropium 3 mg-0.5 mg/3 ml inhalation solution 3 mL, Inhalation, 4 times a day, # 360 mL, 1 Refills, Maintenance, 12/13/19 8:19:00 EDT, Inhalation Solution, [facility], 3 mL Inhalation 4 times a day, 141, cm, 12/07/19 12:18:00 EDT, Height, 100.5, kg, 12/05/19 3:32:00 EDT, Dry Weight Start Date: 12/13/19 Status: OrderedAzithromycin 5 Day Dose Pack 250 mg oral tablet 1 pack/packet, By Mouth, Once, # 6 tablet, 0 Refills, Soft Stop, 06/27/20 15:07:00 EDT, Tablet, [facility]/pharmacy #[id number], Partial fill upon [...] 01/06/20 10:18:00 EDT, Route to Pharmacy Electronically, [facility] 3, 142, cm, 01/06/20 8:20:00EDT, Height, 103, kg, 01/04/20 18:55:00 EDT, Dry... Start Date: 01/06/20 Status: Orderedcetirizine 10 mg oral tablet 1 tablet, By Mouth, Daily, # 90 tablet, 1 Refills, Maintenance, 12/23/19 16:02:00 EDT, [facility]/pharmacy #[id number], 142, cm, 12/15/19 [...] tablet, 1 Refills, Maintenance, 12/02/19 14:20:00 EDT, [facility]/pharmacy #[id number], 1 tablet By [...] capsule, 3 Refills, Maintenance, 06/30/20 12:45:00 EDT, [facility]/pharmacy #0859, 142, cm, 06/27/20 14:47:00 EDT, Height, 100, kg, 06/18/20 15:45:00 EDT, Dry Weight Start Date: 06/30/20 Stop Date: 10/28/20 Status: Orderedduloxetine 60 mg oral enteric coated capsule 1 capsule, By Mouth, Daily, # 30 capsule, 0 Refills, Maintenance, 11/21/19 12:43:00 EDT, [facility] STORE [id number], 142, cm, 11/16/19 8:05:00 EDT, Height, 90.7, kg, 10/11/19 1:24:00 EDT, Dry Weight Start Date: 11/21/19 Status: OrderedDupixent 300 mg/2 mL subcutaneous solution 0 Refills, Maintenance, 11/17/19 4:27:00 EDT Start Date: 11/17/19 Status: Orderedfluticasone 50 mcg/inh nasal spray 1 sprays, Nares, Both, 2 times a day, 0 Refills, Maintenance, 11/17/19 4:21:00 EDT, [place] Start Date: 11/17/19 Status: Orderedlamotrigine 25 mg oral tablet 25 mg, 1, tablet, By Mouth, 2 times a day, # 60 tablet, Refills 0, Maintenance, 11/17/19 4:23:00 EDT Start Date: 11/17/19 Status: OrderedLasix 20 mg oral tablet 20 mg, 1, tablet, By Mouth, Daily, # 7 tablet, Refills 0, Tot. Refills 0, Maintenance, 07/15/20 22:03:00 EDT, Route to Pharmacy Electronically, [facility]/pharmacy #[id number], Partial fill upon [...] tablet, 0 Refills, Maintenance, 01/30/20 14:58:00 EST, [facility] STORE 78373, 143, cm, 01/14/20 22:55:00 EDT, Height, 101, kg, 01/14/20 22:55:00 EDT, Dry Weight Start Date: 01/30/20 Status: Orderedlidocaine 4% topical film 1 patch, Topically, Daily, # 30 patch, 0 Refills, Maintenance, 01/06/20 10:41:00 EDT, Film, [facility] 3, 142, cm, 01/06/20 8:20:00 EDT, Height, 103, kg, 01/04/20 18:55:00 EDT, Dry Weight Start Date: 01/06/20 Stop Date: 02/05/20 Status: Orderedmagnesium oxide 400 mg (240 mg elemental magnesium) oral tablet 1 tablet, By Mouth, Daily, # 90 tablet, 3 Refills, Acute, 04/10/20 10:44:00 EST, [facility] STORE 53594, 90, TAKE 1 TABLET BY MOUTH EVERY DAY, 143, cm, 03/27/20 7:23:00 EST, Height, 101, kg, 01/14/20 22:55:00EDT, Dry Weight Start Date: 04/10/20 Status: Orderedmeloxicam 7.5 mg oral tablet 1 tablet, By Mouth, Daily, # 30 tablet, 0 Refills, Maintenance, 11/23/19 18:18:00 EDT, [facility], 142, cm, 11/16/19 8:05:00 EDT, Height, 90.7, [...] 0 Refills, Maintenance, 12/19/19 13:39:00 EDT, Tablet, [facility]/pharmacy #[id number], 142, cm, 12/15/19 [...]
--- OUTSIDE RECORDS SUMMARY | 2021-12-30 21:53 | XMS_ITS | Continuity of Care Document ---
:1970 Author Organization [facility] Address [address] [place] [address]- Care Team Providers Name Role Phone Mohan Chew MD Primary Care Phys[id number] Date(s): 04/28/19 - 04/28/[address] [address]- [facility] Discharge Disposition: A-D/C Home Attending Physician: Stefan Triana MD Admitting Physician: Stefan Triana MD Referring Physician: Not on Staff, Referring [...] Not Given Patient Refuses 1Result Comment: [05/03/2018] [id number] Comment: [05/03/2018] [id number] Note: pt stated she did not want [...] Refills, Maintenance, 04/19/19 13:22:00 EST, CR Capsule, [facility]/pharmacy #[id number], 142, cm, 04/15/19 9:03:00 [...] capsule, 3 Refills, Maintenance, 04/19/19 13:22:00EST, Capsule, [facility]/pharmacy #[id number], 142, cm, 04/15/19 9:03:00 [...] 11:00:00 EDT, 04/01/19 13:49:00 EST, EC Tablet, [facility]/pharmacy #[id number], 142, cm, 04/01/19 11:22:00 [...] 2 Refills, Maintenance, 04/01/19 13:47:00 EST, Capsule, [facility]/pharmacy #[id number], 142, cm, 04/01/19 11:22:00 EST, Height, 92.6, kg, 03/30/19 10:30:00 EST, Dry Weight Start Date: 04/01/19 Status: Orderedmagnesium citrate 8.85% oral liquid 150 mL = 8.725 Gm, By Mouth, Once, # 300 mL, 0 Refills, Soft Stop, 04/28/19 17:14:00 EST, Liquid, [facility]/pharmacy #0315, 150 mL By Mouth Once, 142, cm, 04/28/19 9:05:00 EST, Height, 92.6, kg, 03/30/19 10:30:00 EST, Dry Weight Start Date: 04/28/19 Status: OrderedMiraLax oral powder for reconstitution = 17 Gm, By Mouth, Daily, dissolve in water before taking, # 255 Gm, 1 Refills, Acute 06/23/19 11:00:00 EDT, 04/01/19 13:47:00 EST, REC Powder, [facility]/pharmacy #[id number], 17 Gm By Mouth [...] Range]: Oxygen Saturation [94-100 %] 96 % 99 % (04/28/19 2:27 PM) (04/28/19 1:34 PM) Pulse Rate [55-90 bpm] 94 bpm 93 bpm *H* *H* (04/28/19 2:27 PM) (04/28/19 1:34 PM) Blood Pressure [90-138/55-84 mm 135/82 mm Hg 125/72 mm Hg Hg] (04/28/19 2:27 PM) (04/28/19 1:34 PM) Respiratory Rate [16-30 br/min] 18 br/min 18 br/min 18 br/min (04/28/19 2:27 PM) (04/28/19 2:22 PM) (04/28/19 1:3 4 PM) Temperature [96.8-100.4 DegF] 98.6 DegF (04/28/19 1:34 PM) Liters per Minute 0 L/min (04/28/19 1:34 PM) Mode of Delivery (Oxygen) Room air Room air (04/28/19 2:27 PM) (04/28/19 1:34 PM) Temperature Route Oral (04/28/19 1:34 PM) Social History Social History Type Response Smoking Status Never smoker; Tobacco user i n household: No entered on: 10/25/14 Sex Female
--- OUTSIDE RECORDS SUMMARY | 2021-12-30 21:54 | XMS_ITS | Continuity of Care Document ---
:1970 Author Organization [facility] Address Unavailable , Care Team Providers Name Role Phone Sylvain FAITH Nasima Primary Care Physician Encounter [facility] Date(s): 12/11/20 - 01/10/21 [facility] Allergies, Adverse Reactions, Alerts Substance Reaction [...] Not Given Patient Refuses 1Result Comment: [05/03/2018] [id number] Comment: [05/03/2018] [id number] Note: pt stated she did not want to receive vaccine today, may want later Medications albuterol-ipratropium 3 mg-0.5 mg/3 ml inhalation solution 3 mL, Inhalation, 4 times a day, # 360 mL, 1 Refills, Maintenance, 12/13/19 8:19:00 EDT, Inhalation Solution, [facility], 3 mL Inhalation 4 times a day, 141, cm, 12/07/19 12:18:00 EDT, Height, 100.5, kg, 12/05/19 3:32:00 EDT, Dry Weight Start Date: 12/13/19 Status: OrderedApriso 0.375 g oral capsule, extended release 4 capsule = 1.5 Gm, By Mouth, Daily in AM, # 120 capsule, 4 Refills, Maintenance, 12/04/20 10:31:00 EDT, CR Capsule, [facility]/pharmacy #[id number], Partial fill upon patient request if [...] Refills, Maintenance, 12/23/19 16:02:00 EDT, [facility]/pharmacy #[id number], 142, cm, 12/15/19 7:46:00 EDT, Height, [...] Refills, Maintenance, 12/02/19 14:20:00 EDT, [facility]/pharmacy #[id number], 1 tablet By Mouth Daily, 142, [...] Refills, Maintenance, 09/28/20 7:41:00 EDT, [facility]/pharmacy #0859, 143, cm, 09/20/20 19:45:00 EDT, Height, 106.6, kg, 09/20/20 19:45:00 EDT, Dry Weight Start Date: 09/28/20 Stop Date: 01/26/21 Status: Orderedduloxetine 60 mg oral enteric coated capsule 1 capsule, By Mouth, Daily, # 30 capsule, 0 Refills, Maintenance, 11/21/19 12:43:00 EDT, [facility], 142, cm, 11/16/19 8:05:00 EDT, Height, 90.7, kg, 10/11/19 1:24:00 EDT, Dry Weight Start Date: 11/21/19 Status: OrderedDupixent 300 mg/2 mL subcutaneous solution Every 14 days, 0 Refills, Maintenance, 11/17/19 4:27:00 EDT Start Date: 11/17/19 Status: Orderedfluticasone 50 mcg/inh nasal spray 1 sprays, Nares, Both, 2 times a day, 0 Refills, Maintenance, 11/17/19 4:21:00 EDT, [place] Start Date: 11/17/19 Status: Orderedlamotrigine 25 mg [...] tablet, 0 Refills, Maintenance, 01/30/20 14:58:00 EST, [facility] ST[facility] 47057, 143, cm, 01/14/20 22:55:00 EDT, Height, 101, kg, 01/14/20 22:55:00 EDT, Dry Weight Start Date: 01/30/20 Status: Orderedlidocaine 4% topical film 1 patch, Topically, Daily, # 30 patch, 0 Refills, Maintenance, 01/06/20 10:41:00 EDT, Film, [facility] 3, 142, cm, 01/06/20 8:20:00 EDT, Height, 103, kg, 01/04/20 18:55:00 EDT, Dry Weight Start Date: 01/06/20 Stop Date: 02/05/20 Status: Orderedlidocaine 5% topical film 1 patch, Topically, Daily, PRN Pain , Mild, remove after 12 hours, # 13 each, 0 Refills, Maintenance, 11/04/20 23:32:00 EDT, Film, [facility]/pharmacy #[id number], Partial fill upon patient request if the prescription is for a schedule II opioid drug., 1 patch Top... Start Date: 11/04/20 Status: Orderedmagnesium oxide 400 mg (240 mg elemental magnesium) oral tablet 1 tablet, By Mouth, Daily, # 90 tablet, 3 Refills, Acute, 04/10/20 10:44:00 EST, [facility] STORE 50446, 90, TAKE 1 TABLET BY MOUTH EVERY [...] Maintenance, 12/19/19 13:39:00 EDT, Tablet, [facility]/pharmacy #[id number], 142, cm, 12/15/19 7:46:00 EDT, Height, [...] 01/15/21 8:56:00 EDT, 01/10/21 8:56:00 EDT, Tablet, [facility]/pharmacy #[id number], Partial fill upon patient request if [...]
--- OUTSIDE RECORDS SUMMARY | 2021-12-30 21:54 | XMS_ITS | Continuity of Care Document ---
:1970 Author Organization [facility] Address [address] [place] [address]- Care Team Providers Name Role Phone Edie Bee MD Primary Care Physician [id number] Date(s): 05/28/21 - 06/27/21 [facility] [place] [address] [place] [address]- Allergies, Adverse Reactions, Alerts Substance Reaction Severity [...] Not Given Patient Refuses 1Result Comment: [05/03/2018] [id number] Comment: [05/03/2018] [id number] Note: pt stated she did not want to receive vaccine today, may want later Medications Apriso 0.375 g oral capsule, extended release 4 capsule = 1.5 Gm, By Mouth, Daily in AM, # 120 capsule, 4 Refills, Maintenance, 04/01/21 11:02:00 EST, CR Capsule, [id number], Partial fill upon patient request if the [...] tablet, 1 Refills, Maintenance, 12/23/19 16:02:00 EDT, [facility]/pharmacy #[id number], 142, [...] 05/29/21 18:11:00 EST, Route to Pharmacy Electronically, [facility]/pharmacy #[id number], Partial fill upon patient request if the prescriptio... Start Date: 05/29/21 Status: OrderedDaily-Madi with Iron oral tablet 1 tablet, By Mouth, Daily, # 90 tablet, 1 Refills, Maintenance, 12/02/19 14:20:00 EDT, [facility]/pharmacy #[id number], 1 tablet By [...] Refills, Maintenance, 11/21/19 12:43:00 EDT, [facility], 142, cm, 11/16/19 8:05:00 EDT, Height, 90.7, kg, 10/11/19 1:24:00 EDT, Dry Weight Start Date: 11/21/19 Status: OrderedDupixent 300 mg/2 mL subcutaneous solution Every 14 days, 0 Refills, Maintenance, 11/17/19 4:27:00 EDT Start Date: 11/17/19 Status: Orderedfluticasone 50 mcg/inh nasal spray 1 sprays, Nares, Both, 2 times a day, 0 Refills, Maintenance, 11/17/19 4:21:00 EDT, [place] Start Date: 11/17/19 Status: OrderedLatuda 40 mg oral tablet 1 tablet = 40 mg, By Mouth, Daily, # 30 tablet, 0 Refills, Maintenance, 11/17/19 4:22:00 EDT, Tablet Start Date: 11/17/19 Status: Orderedlevothyroxine 0.137 mg oral tablet 1 tablet, By Mouth, Daily, # 90 tablet, 0 Refills, Maintenance, 01/30/20 14:58:00 EST, [facility], 143, cm, 01/14/20 22:55:00 EDT, Height, 101, kg, 01/14/20 22:55:00 EDT, Dry Weight Start Date: 01/30/20 Status: Orderedmagnesium oxide 400 mg oral tablet 1 tablet, By Mouth, Daily, # 90 tablet, 3 Refills, [facility] STORE 38792, 143, cm, 04/02/21 3:19:00 EST, Height, 96.2, [...] 5 Refills, Maintenance, 05/15/21 14:16:00 EST, Powder, [facility]/pharmacy #[id number], Partial fill upon patient request if the prescription is fora schedule II opioid drug., 143, cm, 05/15/21 14:... Start Date: 05/15/21 Stop Date: 11/11/21 Status: OrderedZofran 4 mg oral tablet 1 tablet = 4 mg, By Mouth, Every 8 hours, PRN as needed for nausea/vomiting, # 15 tablet, 0 Refills,Maintenance, 04/01/21 23:03:00 EST, Tablet, [facility]/pharmacy #[id number], [...]
--- OUTSIDE RECORDS SUMMARY | 2021-12-30 21:54 | XMS_ITS | Continuity of Care Document ---
:1970 Author Organization [facility] Address [address] [place] [address]- Care Team Providers Name Role Phone Not on Staff, PCP Primary Care Physician Unavailable Encounter [facility] Date(s): 02/25/21 - 03/27/[address] [address]- Attending Physician: Vinny Cornejo Admitting Physician: AdmVinny [...] Not Given Patient Refuses 1Result Comment: [05/03/2018] [id number] Comment: [05/03/2018] [id number] Note: pt stated she did not want to receive vaccine today, may want later Medications Apriso 0.375 g oral capsule, extended release 4 capsule = 1.5 Gm, By Mouth, Daily in AM, # 120 capsule, 4 Refills, Maintenance, 12/04/20 10:31:00 EDT, CR Capsule, [id number], Partial fill upon patient request if the [...] Refills, Maintenance, 12/23/19 16:02:00 EDT, [facility]/pharmacy #[id number], 142, cm, 12/15/19 7:46:00 EDT, Height, [...] Refills, Maintenance, 12/02/19 14:20:00 EDT, [facility]/pharmacy #[id number], 1 tablet By Mouth Daily, 142, [...] Refills, Maintenance, 09/28/20 7:41:00 EDT, [facility]/pharmacy #[id number], 143, cm, 09/20/20 19:45:00 EDT, Height, 106.6, kg, 09/20/20 19:45:00 EDT, Dry Weight Start Date: 09/28/20 Stop Date: 01/26/21 Status: Ordereddoxycycline hyclate 100 mg oral capsule 1 capsule = 100 mg, By Mouth, 2 times a day, for 10 days, # 20 capsule, 0 Refills, Acute 04/04/21 20:38:00 EST, 03/25/21 20:38:00 EST, Capsule, [facility]/pharmacy #[id number], Partial fill upon patient request if the prescription is for a schedule II opioid drug.... Start Date: 03/25/21 Stop Date: 04/04/21 Status: Orderedduloxetine 60 mg oral enteric coated capsule 1 capsule, By Mouth, Daily, # 30 capsule, 0 Refills, Maintenance, 11/21/19 12:43:00 EDT, [facility], 142, cm, 11/16/19 8:05:00 EDT, Height, 90.7, kg, 10/11/19 1:24:00 EDT, Dry Weight Start Date: 11/21/19 Status: OrderedDupixent 300 mg/2 mL subcutaneous solution Every 14 days, 0 Refills, Maintenance, 11/17/19 4:27:00 EDT Start Date: 11/17/19 Status: Orderedfluticasone 50 mcg/inh nasal spray 1 sprays, Nares, Both, 2 times a day, 0 Refills, Maintenance, 11/17/19 4:21:00 EDT, [place] Start Date: 11/17/19 Status: Orderedlamotrigine 25 mg [...] tablet, 0 Refills, Maintenance, 01/30/20 14:58:00 EST, [facility] STORE [address]4579, 143, cm, 01/14/20 22:55:00 EDT, Height, 101, kg, 01/14/20 22:55:00 EDT, Dry Weight Start Date: 01/30/20 Status: Orderedlidocaine 4% topical film 1 patch, Topically, Daily, # 30 patch, 0 Refills, Maintenance, 01/06/20 10:41:00 EDT, Film, [facility] 3, 142, cm, 01/06/20 8:20:00 EDT, Height, 103, kg, 01/04/20 18:55:00 EDT, Dry Weight Start Date: 01/06/20 Stop Date: 02/05/20 Status: Orderedlidocaine 5% topical film 1 patch, Topically, Daily, PRN Pain , Mild, remove after 12 hours, # 13 each, 0 Refills, Maintenance, 11/04/20 23:32:00 EDT, Film, [facility]/pharmacy #[id number], Partial fill upon patient request if the prescription is for a schedule II opioid drug., 1 patch Top... Start Date: 11/04/20 Status: Orderedmagnesium oxide 400 mg (240 mg elemental magnesium) oral tablet 1 tablet, By Mouth, Daily, # 90 tablet, 3 Refills, Acute, 04/10/20 10:44:00 EST, [facility] STORE 88673, 90, TAKE 1 TABLET BY MOUTH EVERY [...] Maintenance, 12/19/19 13:39:00 EDT, Tablet, [facility]/pharmacy #[id number], 142, cm, 12/15/19 7:46:00 EDT, Height, [...]
--- OUTSIDE RECORDS SUMMARY | 2021-12-30 21:54 | XMS_ITS | Continuity of Care Document ---
:1970 Author Organization [facility] Address [address] [place] [address]- Care Team Providers Name Role Phone Go Schwarz MD Primary Care Physician Encounter [facility] N[facility] [id number] Date(s): 07/14/19 - 07/24/19 [facility] [address] [place] [address]- [facility] Attending Physician: Vinny Cornejo Admitting Physician: [...] Not Given Patient Refuses 1Result Comment: [05/03/2018] [id number] Comment: [05/03/2018] [id number] Note: pt stated she did not want [...] Refills, Soft Stop, 04/28/19 17:14:00 EST, Liquid, [facility]/pharmacy #0315, 150 mL By Mouth Once, [...]
--- OUTSIDE RECORDS SUMMARY | 2021-12-30 21:54 | XMS_ITS | Continuity of Care Document ---
:1970 Author Organization [facility] Address [address] [place] [address]- Care Team Providers Name Role Phone PbcristoferNasima stewart DO Primary Care Physician En[facility] Date(s): 07/29/20 - 07/29/[address] [address]- Encounter Diagnosis Chest pain (Final) - 07/29/20 Discharge Disposition: A-D/C Home Attending Physician: Brianna [...] Not Given Patient Refuses 1Result Comment: [05/03/2018] [id number] Comment: [05/03/2018] [id number] Note: pt stated she did not want to receive vaccine today, may want later Medications albuterol-ipratropium 3 mg-0.5 mg/3 ml inhalation solution 3 mL, Inhalation, 4 times a day, # 360 mL, 1 Refills, Maintenance, 12/13/19 8:19:00 EDT, Inhalation Solution, [facility], 3 mL Inhalation 4 times a day, 141, cm, 12/07/19 12:18:00 EDT, Height, 100.5, kg, 12/05/19 3:32:00 EDT, Dry Weight Start Date: 12/13/19 Status: OrderedAzithromycin 5 Day Dose Pack 250 mg oral tablet 1 pack/packet, By Mouth, Once, # 6 tablet, 0 Refills, Soft Stop, 06/27/20 15:07:00 EDT, Tablet, [facility]/pharmacy #[id number], Partial fill upon patient [...] 01/06/20 10:18:00 EDT, Route to Pharmacy Electronically, [facility], 142, cm, 01/06/20 8:20:00EDT, Height, 103, kg, 01/04/20 18:55:00 EDT, Dry... Start Date: 01/06/20 Status: Orderedcetirizine 10 mg oral tablet 1 tablet, By Mouth, Daily, # 90 tablet, 1 Refills, Maintenance, 12/23/19 16:02:00 EDT, [facility]/pharmacy #0859, 142, cm, 12/15/19 7:46:00 [...] tablet, 1 Refills, Maintenance, 12/02/19 14:20:00 EDT, [facility]/pharmacy #0859, 1 tablet By Mouth [...] capsule, 3 Refills, Maintenance, 06/30/20 12:45:00 EDT, [facility]/pharmacy #0859, 142, cm, 06/27/20 14:47:00 EDT, Height, 100, kg, 06/18/20 15:45:00 EDT, Dry Weight Start Date: 06/30/20 Stop Date: 10/28/20 Status: Orderedduloxetine 60 mg oral enteric coated capsule 1 capsule, By Mouth, Daily, # 30 capsule, 0 Refills, Maintenance, 11/21/19 12:43:00 EDT, [facility] STORE 37638, 142, cm, 11/16/19 8:05:00 EDT, Height, 90.7, kg, 10/11/19 1:24:00 EDT, Dry Weight Start Date: 11/21/19 Status: OrderedDupixent 300 mg/2 mL subcutaneous solution 0 Refills, Maintenance, 11/17/19 4:27:00 EDT Start Date: 11/17/19 Status: Orderedfluticasone 50 mcg/inh nasal spray 1 sprays, Nares, Both, 2 times a day, 0 Refills, Maintenance, 11/17/19 4:21:00 EDT, [place] Start Date: 11/17/19 Status: Orderedlamotrigine 25 mg oral tablet 25 mg, 1, tablet, By Mouth, 2 times a day, # 60 tablet, Refills 0, Maintenance, 11/17/19 4:23:00 EDT Start Date: 11/17/19 Status: OrderedLasix 20 mg oral tablet 20 mg, 1, tablet, By Mouth, Daily, # 7 tablet, Refills 0, Tot. Refills 0, Maintenance, 07/15/20 22:03:00 EDT, Route to Pharmacy Electronically, [facility]/pharmacy #[id number], Partial fill upon patient request if the [...] tablet, 0 Refills, Maintenance, 01/30/20 14:58:00 EST, [facility] STORE 33137, 143, cm, 01/14/20 22:55:00 EDT, Height, 101, kg, 01/14/20 22:55:00 EDT, Dry Weight Start Date: 01/30/20 Status: Orderedlidocaine 4% topical film 1 patch, Topically, Daily, # 30 patch, 0 Refills, Maintenance, 01/06/20 10:41:00 EDT, Film, [facility] 3, 142, cm, 01/06/20 8:20:00 EDT, Height, 103, kg, 01/04/20 18:55:00 EDT, Dry Weight Start Date: 01/06/20 Stop Date: 02/05/20 Status: Orderedmagnesium oxide 400 mg (240 mg elemental magnesium) oral tablet 1 tablet, By Mouth, Daily, # 90 tablet, 3 Refills, Acute, 04/10/20 10:44:00 EST, [facility] STORE 88687, 90, TAKE 1 TABLET BY MOUTH EVERY DAY, 143, cm, 03/27/20 7:23:00 EST, Height, 101, kg, 01/14/20 22:55:00EDT, Dry Weight Start Date: 04/10/20 Status: Orderedmeloxicam 7.5 mg oral tablet 1 tablet, By Mouth, Daily, # 30 tablet, 0 Refills, Maintenance, 11/23/19 18:18:00 EDT, [facility], 142, cm, 11/16/19 8:05:00 EDT, Height, 90.7, [...] to oldest [Reference Range]: 1 2 Height 142 cm (07/29/20 6:45 PM) Weight 102 kg (07/29/20 6:45 PM) Oxygen Saturation [94-100 %] 98 % 96 % (07/29/20 6:45 PM) (07/29/20 4:53 PM) Pulse Rate [55-90 bpm] 79 bpm 78 bpm (07/29/20 6:45 PM) (07/29/20 4:53 PM) Body Mass Index [18.5-24.99] 50.59 *>HHI* (07/29/20 6:45 PM) Blood Pressure [90-138/55-84 mm Hg] 115/76 mm Hg 109/ 74 mm Hg (07/29/20 6:45 PM) (07/29/20 4:53 PM) Respiratory Rate [16-30 br/min] 16 br/min 22 br/mi n (07/29/20 6:45 PM) (07/29/20 4:53 PM) Temperature [96.8-100.4 DegF] 98.6 DegF 98.3 DegF (07/29/20 6:45 PM) (07/29/20 4:53 PM) Mode of Delivery (Oxygen) Room air Room air (07/29/20 6:45 PM) (07/29/20 4:53 PM) Blood pressure sites Arm, right (07/29/20 6:45 PM) Temperature Route Oral Oral (07/29/20 6:45 PM) (07/29/20 4:53 PM) Dry Weight 102 kg (07/29/20 6:45 PM) Weight Obtained Via Patient/family stated (07/29/20 6:45 PM) Dry Weight Obtained Via Patient/family stated (07/29/20 6:45 PM) Social History Social History Type Response Smoking Status Never (less than 100 in life time) entered on: 01/01/20 Sex
--- OUTSIDE RECORDS SUMMARY | 2021-12-30 21:54 | XMS_ITS | Continuity of Care Document ---
:1970 Author Organization [facility] Address [address] [place] [address]- Care Team Providers Name Role Phone Fidel Sheffield MD, Mohan Primary Care Physician [phone] Encounter [facility] Date(s): 03/17/19 - 04/23/[address] [address]- [facility] Attending Physician: Jerod Moe Admitting Physician: Jerod Moe Allergies, Adverse Reactions, Alerts [...] Not Given Patient Refuses 1Result Comment: [05/03/2018] [id number] Comment: [05/03/2018] [id number] Note: pt stated she did not want [...] Refills, Maintenance, 04/19/19 13:22:00 EST, CR Capsule, [facility]/pharmacy #[id number], 142, cm, 04/15/19 9:03:00 EST, Height, [...] capsule, 3 Refills, Maintenance, 04/19/19 13:22:00EST, Capsule, [facility]/pharmacy #0859, 142, cm, 04/15/19 9:03:00 EST, Height, [...] 11:00:00 EDT, 04/01/19 13:49:00 EST, EC Tablet, [facility]/pharmacy #0859, 142, cm, 04/01/19 11:22:00 EST, Height, [...] 2 Refills, Maintenance, 04/01/19 13:47:00 EST, Capsule, [facility]/pharmacy #0859, 142, cm, 04/01/19 11:22:00 EST, Height, 92.6, kg, 03/30/19 10:30:00 EST, Dry Weight Start Date: 04/01/19 Status: OrderedMiraLax oral powder for reconstitution = 17 Gm, By Mouth, Daily, dissolve in water before taking, # 255 Gm, 1 Refills, Acute 06/23/19 11:00:00 EDT, 04/01/19 13:47:00 EST, REC Powder, [facility]/pharmacy #[id number], 17 Gm By Mouth Daily,Instr:dissolve in [...]
--- OUTSIDE RECORDS SUMMARY | 2021-12-30 21:54 | XMS_ITS | Continuity of Care Document ---
:1970 Author Organization [facility] Address [address] [place] [address]- Care Team Providers Name Role Phone Go Schwarz MD Primary Care Physician [place] [facility] Date(s): 09/18/19 - 09/19/[address] [address]- [facility] Encounter Diagnosis Cough (Final) - 09/19/19 Discharge Disposition: A-D/C Home Attending Physician: Kelvin [...] Not Given Patient Refuses 1Result Comment: [05/03/2018] [id number] Comment: [05/03/2018] [id number] Note: pt stated she did not want [...] 0 Refills, Maintenance, 09/09/19 19:51:00 EDT, Gel, [facility]/pharmacy #0859, 1 application Topically 2 times a [...] tablet 40 mg, 2, tablet, By Mouth, Daily, # 60 tablet, Refills 2, Tot. Refills 2, Maintenance, 09/14/19 10:02:00 EDT, Route to Pharmacy Electronically, [facility]/pharmacy #0859, 142, cm, 09/13/19 9:15:00 EDT, Height, [...] Refills, Soft Stop, 04/28/19 17:14:00 EST, Liquid, [facility]/pharmacy #0315, 150 mL By Mouth Once, 142, [...] tablet, 0 Refills, Maintenance, 08/23/19 8:24:00 EDT, [facility] STORE [facility]12, 142, cm, 08/08/19 8:45:00 EDT, Height, 89, kg, 08/03/19 13:47:00 EDT, Dry Weight Start Date: 08/23/19 Status: Orderedmontelukast 10 mg oral tablet 10 mg, 1, tablet, By Mouth, Daily, Refills 0, Maintenance, 08/25/19 4:35:00 EDT Start Date: 08/25/19 Status: Orderednystatin 897822 u/ml oral suspension 1 mL = 100,000 units, By Mouth, 4 times a day, # 30 mL, 0 Refills, Maintenance, 08/25/19 4:36:00 EDT, Suspension Start Date: 08/25/19 Status: Orderedondansetron 4 mg oral tablet 1 tablet = 4 mg, By Mouth, Every 8 hours, PRN as needed for nausea and vomiting, # 15 tablet, 0 Refills, Maintenance, 08/10/19 15:44:00 EDT, Tablet, [facility]/pharmacy #[id number], 142, cm, 08/08/19 8:45:00 EDT, Height, [...] Exam Date Time Procedure Performing Provider Status 09/19/19 10:11 AM Chest Portable Lonnie , Tatiana; Auth (Verified) Notes:(Chest Portable) Reason For Exam: CoughRESULT: Chest Portable Chest Portable Refer to EMR; Reason: Cough; Clinical Question(s): Pneumonia; Hx of Present Illness: pt presents to ED from home with SOB x 3 months, worsening today; COMPARISON: Multiple prior chest radiographs, most recently September 10, 2019. FINDINGS: LINES AND TUBES: None. LUNGS AND PLEURA: Clear lungs. Normal pulmonary vascularity. No pleural effusion. No pneumothorax. HEART, MEDIASTINUM AND REY: Heart is normal in size. Normal mediastinal and hilar contour. BONES AND SOFT TISSUES: No acute abnormality. IMPRESSION: No acute abnormality. WSN: [id number] Ordering Physician: Kelvin Barnhart Dictated By: Ramon Gerber MD Dictated Date/Time: 09/19/19 10:14 a Reviewed By: Ramon Gerber MD Signed By: Ramon Gerber MD Signed Date/Time: 09/19/19 10:14 am Transcribed By: CSWhitney Transcribed Date/Time: 09/19/19 10:13 am Vital Signs Most recent to oldest 1 2 3 [Reference Range]: Oxygen Saturation [94-100 %] 97 % 100 % 98 % (09/19/19 1:44 PM) (09/19/19 3:19 AM) (09/19/19 12: 07 AM) Pulse Rate [55-90 bpm] 99 bpm 99 bpm 95 bpm *H* *H* *H* (09/19/19 1:44 PM) (09/19/19 3:19 AM) (09/19/19 12: 07 AM) Blood Pressure [90-138/55-84 120/90 mm Hg 109/60 mm Hg 130 /43 mm Hg mm Hg] (09/19/19 1:44 PM) (09/19/19 3:19 AM) (09/19/19 12: 07 AM) Respiratory Rate [16-30 16 br/min 16 br/min 19 br/mi n br/min] (09/19/19 1:44 PM) (09/19/19 3:19 AM) (09/19/19 12: 07 AM) Temperature [96.8-100.4 DegF] 99.1 DegF 98.0 DegF 97 .8 DegF (09/19/19 1:44 PM) (09/19/19 3:19 AM) (09/19/19 12: 07 AM) Mode of Delivery (Oxygen) Room air Room air Room a ir (09/19/19 1:44 PM) (09/19/19 3:19 AM) (09/19/19 12: 07 AM) Blood pressure sites Arm, right Arm, right (09/19/19 1:44 PM) (09/19/19 3:19 AM) Temperature Route Oral Oral Oral (09/19/19 1:44 PM) (09/19/19 3:19 AM) (09/19/19 12: 07 AM) Social History Social History Type Response Smoking Status Never smoker; Tobacco user i n household: No entered on: 10/25/14 Sex
--- OUTSIDE RECORDS SUMMARY | 2021-12-30 21:54 | XMS_ITS | Continuity of Care Document ---
:1970 Author Organization [facility] Address [address] [place] [address]- Care Team Providers Name Role Phone Long Rama MORALES Primary Care Physician [place] [facility] [place] Date(s): 11/13/20 - 12/13/20 [facility] [address] [place] [address]- [place] Allergies, Adverse Reactions, Alerts Substance Reaction [...] Not Given Patient Refuses 1Result Comment: [05/03/2018] [id number] Comment: [05/03/2018] [id number] Note: pt stated she did not want to receive vaccine today, may want later Medications albuterol-ipratropium 3 mg-0.5 mg/3 ml inhalation solution 3 mL, Inhalation, 4 times a day, # 360 mL, 1 Refills, Maintenance, 12/13/19 8:19:00 EDT, Inhalation Solution, [facility], 3 mL Inhalation 4 [...] Refills, Maintenance, 09/28/20 7:41:00 EDT, [facility]/pharmacy #[id number], 143, cm, 09/20/20 19:45:00 EDT, Height, 106.6, kg, 09/20/20 19:45:00 EDT, Dry Weight Start Date: 09/28/20 Stop Date: 01/26/21 Status: Orderedduloxetine 60 mg oral enteric coated capsule 1 capsule, By Mouth, Daily, # 30 capsule, 0 Refills, Maintenance, 11/21/19 12:43:00 EDT, [facility], 142, cm, 11/16/19 8:05:00 EDT, Height, 90.7, kg, 10/11/19 1:24:00 EDT, Dry Weight Start Date: 11/21/19 Status: OrderedDupixent 300 mg/2 mL subcutaneous solution Every 14 days, 0 Refills, Maintenance, 11/17/19 4:27:00 EDT Start Date: 11/17/19 Status: Orderedfluticasone 50 mcg/inh nasal spray 1 sprays, Nares, Both, 2 times a day, 0 Refills, Maintenance, 11/17/19 4:21:00 EDT, [place] Start Date: 11/17/19 Status: Orderedlamotrigine 25 mg [...] tablet, 0 Refills, Maintenance, 01/30/20 14:58:00 EST, [facility], 143, cm, 01/14/20 22:55:00 EDT, Height, 101, kg, 01/14/20 22:55:00 EDT, Dry Weight Start Date: 01/30/20 Status: Orderedlidocaine 4% topical film 1 patch, Topically, Daily, # 30 patch, 0 Refills, Maintenance, 01/06/20 10:41:00 EDT, Film, [facility] 3, 142, cm, 01/06/20 8:20:00 EDT, Height, 103, kg, 01/04/20 18:55:00 EDT, Dry Weight Start Date: 01/06/20 Stop Date: 02/05/20 Status: Orderedlidocaine 5% topical film 1 patch, Topically, Daily, PRN Pain , Mild, remove after 12 hours, # 13 each, 0 Refills, Maintenance, 11/04/20 23:32:00 EDT, Film, [facility]/pharmacy #[id number], Partial fill upon patient request if the prescription is for a schedule II opioid drug., 1 patch Top... Start Date: 11/04/20 Status: Orderedmagnesium oxide 400 mg (240 mg elemental magnesium) oral tablet 1 tablet, By Mouth, Daily, # 90 tablet, 3 Refills, Acute, 04/10/20 10:44:00 EST, [facility] STORE 10963, 90, TAKE 1 TABLET BY MOUTH EVERY [...] Maintenance, 12/19/19 13:39:00 EDT, Tablet, [facility]/pharmacy #[id number], 142, cm, 12/15/19 7:46:00 EDT, [...]
--- OUTSIDE RECORDS SUMMARY | 2021-12-30 21:54 | XMS_ITS | Continuity of Care Document ---
:1970 Author Organization [facility] Address [address] [place] [address]- Care Team Providers Name Role Phone Go Schwarz MD Primary Care Physician Encounter [facility] [place] Date(s): 06/13/19 - 07/22/[address] [address]- [facility] Discharge Disposition: A-D/C Home Attending Physician: Rajat Johnson MD Admitting Physician: Rajat Johnson MD Referring Physician: Rajat Johnson MD Allergies, Adverse Reactions, Alerts Substance Reaction [...] Not Given Patient Refuses 1Result Comment: [05/03/2018] [id number] Comment: [05/03/2018] [id number] Note: pt stated she did not want to receive vaccine today, may want later Medications Apriso 0.375 g oral capsule, extended release 4 capsule = 1.5 Gm, By Mouth, Daily in AM, # 120 capsule, 3 Refills, Maintenance, 06/16/19 11:33:00 EDT, CR Capsule, [facility], 143, cm, 06/09/19 7:23:00 EDT, Height, 91, [...] Refills, Soft Stop, 04/28/19 17:14:00 EST, Liquid, [facility]/pharmacy #0315, 150 mL By Mouth Once, [...]
--- OUTSIDE RECORDS SUMMARY | 2021-12-30 21:54 | XMS_ITS | Continuity of Care Document ---
:1970 Author Organization [facility] Address [address] [address]- Care Team Providers Name Role Phone Cristal OROZCO, Edie Segovia Primary Care Physician Encounter [facility] Date(s): 10/10/21 - 11/09/21 [facility] [address] [address] Allergies, Adverse Reactions, Alerts Substance Reaction Severity Status sulfADIAZINE Rash Active penicillins Rash Active droperidol Anaphylactic reaction Persistent Severe Active Toradol1, 2 Active Keflex Rash Active Glutens rash Active 1abd upset with [id number] upset Immunizations Given and Recorded Vaccine Date [...] Not Given Patient Refuses 1Result Comment: [05/03/2018] [id number] Comment: [05/03/2018] [id number] Note: pt stated she did not want [...] 1 Refills, Maintenance, 12/23/19 16:02:00 EDT, [facility]/pharmacy #[id number], 142, cm, 12/15/19 [...] 05/29/21 18:11:00 EST, Route to Pharmacy Electronically, [facility]/pharmacy #[id number], Partial fill upon patient request if the prescriptio... Start Date: 05/29/21 Status: OrderedDaily-Madi with Iron oral tablet 1 tablet, By Mouth, Daily, # 90 tablet, 1 Refills, Maintenance, 12/02/19 14:20:00 EDT, [facility]/pharmacy #[id number], 1 tablet By Mouth [...] ABDOMINAL CRAMPS, # 90 capsule, 0 Refills, [facility], 143, cm, 10/16/21 19:52:00 EDT, Height, 88.5, kg, 10/16/21 19:52:00 EDT, Dry Weight Start Date: 10/17/21 Status: Orderedduloxetine 60 mg oral enteric coated capsule 1 capsule, By Mouth, Daily, # 30 capsule, 0 Refills, Maintenance, 11/21/19 12:43:00 EDT, [facility] STORE 28073, 142, cm, 11/16/19 8:05:00 EDT, Height, 90.7, kg, 10/11/19 1:24:00 EDT, Dry Weight Start Date: 11/21/19 Status: OrderedDupixent 300 mg/2 mL subcutaneous solution Every 14 days, 0 Refills, Maintenance, 11/17/19 4:27:00 EDT Start Date: 11/17/19 Status: Orderedfluticasone 50 mcg/inh nasal spray 1 sprays, Nares, Both, 2 times a day, 0 Refills, Maintenance, 11/17/19 4:21:00 EDT, [place] Start Date: 11/17/19 Status: OrderedImodium A-D 2 mg oral tablet 2 mg, 1, tablet, By Mouth, Every 4 hours, PRN, # 10 tablet, Refills 0, Tot. Refills 0, Maintenance, for loose stool, 07/27/21 19:52:00 EDT, Route to Pharmacy Electronically, [facility]/pharmacy #[id number], Partialfill upon patient request if the prescription is... Start Date: 07/27/21 Status: Orderedindomethacin 25 mg oral capsule 1 capsule = 25 mg, By Mouth, 3 times a day, PRN for arthritis, with food or milk, # 21 capsule, 0 Refills, Maintenance, 09/03/21 11:42:00 EDT, Capsule, [facility], Partial fill upon patient [...] Refills, Maintenance, 01/30/20 14:58:00 EST, [facility], 143, cm, 01/14/20 22:55:00 EDT, Height, 101, kg, 01/14/20 22:55:00 EDT, Dry Weight Start Date: 01/30/20 Status: Orderedlidocaine 5% topical film 1 patch, Topically, Daily, PRN Pain , Mild, remove after 12 hours, # 13 each, 0 Refills, Maintenance, 08/22/21 22:17:00 EDT, Film, [facility]/pharmacy #0859, Partial fill upon patient request if the prescription is for a schedule II opioid drug., 1 patch Top... Start Date: 08/22/21 Status: Orderedmagnesium oxide 400 mg oral tablet 1 tablet, By Mouth, Daily, # 90 tablet, 3 Refills, [facility], 143, cm, 04/02/21 3:19:00 EST, Height, 96.2, [...]
--- OUTSIDE RECORDS SUMMARY | 2021-12-30 21:54 | XMS_ITS | Continuity of Care Document ---
:1970 Author Organization [facility] Address [address] [place] [address]- Care Team Providers Name Role Phone Nasima Narayan DO Primary Care Physician Encounter [facility] Date(s): 04/26/20 - 06/01/[address] [address] Attending Physician: Renny Sykes MD [...] Not Given Patient Refuses 1Result Comment: [05/03/2018] [id number] Comment: [05/03/2018] [id number] Note: pt stated she did not want to receive vaccine today, may want later Medications albuterol-ipratropium 3 mg-0.5 mg/3 ml inhalation solution 3 mL, Inhalation, 4 times a day, # 360 mL, 1 Refills, Maintenance, 12/13/19 8:19:00 EDT, Inhalation Solution, [facility], 3 mL Inhalation 4 [...] 01/06/20 10:18:00 EDT, Route to Pharmacy Electronically, [facility] 3, 142, cm, 01/06/20 8:20:00EDT, Height, 103, kg, 01/04/20 18:55:00 EDT, Dry... Start Date: 01/06/20 Status: Orderedcetirizine 10 mg oral tablet 1 tablet, By Mouth, Daily, # 90 tablet, 1 Refills, Maintenance, 12/23/19 16:02:00 EDT, [facility]/pharmacy #0859, 142, cm, 12/15/19 7:46:00 EDT, Height, [...] Maintenance, 12/02/19 14:20:00 EDT, [facility]/pharmacy #0859, 1 tablet By Mouth Daily, 142, [...] Refills, Maintenance, 11/21/19 12:43:00 EDT, [facility] STORE 51028, 142, cm, 11/16/19 8:05:00 EDT, Height, 90.7, kg, 10/11/19 1:24:00 EDT, Dry Weight Start Date: 11/21/19 Status: OrderedDupixent 300 mg/2 mL subcutaneous solution 0 Refills, Maintenance, 11/17/19 4:27:00 EDT Start Date: 11/17/19 Status: Orderedfluticasone 50 mcg/inh nasal spray 1 sprays, Nares, Both, 2 times a day, 0 Refills, Maintenance, 11/17/19 4:21:00 EDT, [place] Start Date: 11/17/19 Status: Orderedlamotrigine 25 mg [...] tablet, 0 Refills, Maintenance, 01/30/20 14:58:00 EST, [facility] ST[facility] 38544, 143, cm, 01/14/20 22:55:00 EDT, Height, 101, kg, 01/14/20 22:55:00 EDT, Dry Weight Start Date: 01/30/20 Status: Orderedlidocaine 4% topical film 1 patch, Topically, Daily, # 30 patch, 0 Refills, Maintenance, 01/06/20 10:41:00 EDT, Film, [facility] 3, 142, cm, 01/06/20 8:20:00 EDT, Height, 103, kg, 01/04/20 18:55:00 EDT, Dry Weight Start Date: 01/06/20 Stop Date: 02/05/20 Status: Orderedmagnesium oxide 400 mg (240 mg elemental magnesium) oral tablet 1 tablet, By Mouth, Daily, # 90 tablet, 3 Refills, Acute, 04/10/20 10:44:00 EST, [facility] STORE 15923, 90, TAKE 1 TABLET BY MOUTH EVERY DAY, 143, cm, 03/27/20 7:23:00 EST, Height, 101, kg, 01/14/20 22:55:00EDT, Dry Weight Start Date: 04/10/20 Status: Orderedmeloxicam 7.5 mg oral tablet 1 tablet, By Mouth, Daily, # 30 tablet, 0 Refills, Maintenance, 11/23/19 18:18:00 EDT, [facility] STORE 34761, 142, cm, 11/16/19 8:05:00 EDT, Height, 90.7, [...] Dry Weight Start Date: 04/11/20 Status: Orderednystatin 140368 u/ml oral suspension 1 mL = 100,000 units, By Mouth, 4 times a day, # 30 mL, 0 Refills, Maintenance, 11/17/19 4:28:00 EDT, Suspension Start Date: 11/17/19 Status: Orderedondansetron 4 mg oral tablet 1 tablet = 4 mg, By Mouth, Every 8 hours, PRN Nausea & Vomiting, # 10 tablet, 0 Refills, Maintenance, 12/19/19 13:39:00 EDT, Tablet, [facility]/pharmacy #0859, 142, cm, 12/15/19 7:46:00 EDT, Height, [...] 01/10/20 7:53:00 EDT, Capsule, [facility]/pharmacy #0859, 142, cm, 01/08/20 22:31:00 EDT, Height, [...]
--- OUTSIDE RECORDS SUMMARY | 2021-12-30 21:54 | XMS_ITS | Continuity of Care Document ---
:1970 Author Organization [facility] Address [address] [place] [address]- Care Team Providers Name Role Phone Edie Bee MD Primary Care Physician [phone] Encounter [facility] Date(s): 10/21/21 - 10/21/[address] [address]- Discharge Disposition: A-D/C AMA Attending Physician: Brianna Quinones MD Admitting Physician: Brianna Quinones MD Referring Physician: Not on Staff, Referring MD Allergies, Adverse Reactions, Alerts Substance Reaction Severity Status sulfADIAZINE Rash Active penicillins Rash Active droperidol Anaphylactic reaction Persistent Severe Active Toradol1, 2 Active Keflex Rash Active Glutens rash Active 1abd upset with [id number] upset Immunizations Given and Recorded Vaccine Date [...] Not Given Patient Refuses 1Result Comment: [05/03/2018] [id number] Comment: [05/03/2018] [id number] Note: pt stated she did not want [...] 05/29/21 18:11:00 EST, Route to Pharmacy Electronically, [facility]/pharmacy #[id number], Partial fill upon patient request [...] ABDOMINAL CRAMPS, # 90 capsule, 0 Refills, [facility], 143, cm, 10/16/21 19:52:00 EDT, Height, 88.5, kg, 10/16/21 19:52:00 EDT, Dry Weight Start Date: 10/17/21 Status: Orderedduloxetine 60 mg oral enteric coated capsule 1 capsule, By Mouth, Daily, # 30 capsule, 0 Refills, Maintenance, 11/21/19 12:43:00 EDT, [facility] STORE 47344, 142, cm, 11/16/19 8:05:00 EDT, Height, 90.7, kg, 10/11/19 1:24:00 EDT, Dry Weight Start Date: 11/21/19 Status: OrderedDupixent 300 mg/2 mL subcutaneous solution Every 14 days, 0 Refills, Maintenance, 11/17/19 4:27:00 EDT Start Date: 11/17/19 Status: Orderedfluticasone 50 mcg/inh nasal spray 1 sprays, Nares, Both, 2 times a day, 0 Refills, Maintenance, 11/17/19 4:21:00 EDT, [place] Start Date: 11/17/19 Status: OrderedImodium A-D 2 mg oral tablet 2 mg, 1, tablet, By Mouth, Every 4 hours, PRN, # 10 tablet, Refills 0, Tot. Refills 0, Maintenance, for loose stool, 07/27/21 19:52:00 EDT, Route to Pharmacy Electronically, [facility]/pharmacy #[id number], Partialfill upon patient request if the prescription is... Start Date: 07/27/21 Status: Orderedindomethacin 25 mg oral capsule 1 capsule = 25 mg, By Mouth, 3 times a day, PRN for arthritis, with food or milk, # 21 capsule, 0 Refills, Maintenance, 09/03/21 11:42:00 EDT, Capsule, [facility], Partial fill upon patient [...] Refills, Maintenance, 01/30/20 14:58:00 EST, [facility], 143, cm, 01/14/20 22:55:00 EDT, Height, 101, kg, 01/14/20 22:55:00 EDT, Dry Weight Start Date: 01/30/20 Status: Orderedlidocaine 5% topical film 1 patch, Topically, Daily, PRN Pain , Mild, remove after 12 hours, # 13 each, 0 Refills, Maintenance, 08/22/21 22:17:00 EDT, Film, [facility]/pharmacy #0859, Partial fill upon patient request if the prescription is for a schedule II opioid drug., 1 patch Top... Start Date: 08/22/21 Status: Orderedmagnesium oxide 400 mg oral tablet 1 tablet, By Mouth, Daily, # 90 tablet, 3 Refills, [facility], 143, cm, 04/02/21 3:19:00 EST, Height, 96.2, [...] Active Leg swelling(Confirmed) Active Ulcerative colitis(Confirmed) Active Results Radiology Reports Exam Date Time Procedure Performing Provider Status 10/21/21 7:31 PM Chest 2 Views Frontal and Lat Sara Navarrete; Quang ut (Verified) Notes:(Chest 2 Views Frontal and Lat) Reason For Exam: Shortness of Breath, Fever;Other:RESULT: Chest 2 Views Frontal and Lat Chest 2 Views Frontal and Lat Hx of Present Illness: reports sob x 1 week, chest tightness started today , non radiaiting, assoc wmild nausea, + fevers, no LE swelling; Reason: Other:; Shortness of Breath, Fever; Clinical Question(s): Pneumonia COMPARISON: 10/16/2021 FINDINGS: LINES AND TUBES: None. LUNGS AND PLEURA: Low lung volumes with chronically elevated right hemidiaphragm.. No focal consolidation or pulmonaryedema No pleural effusion. No pneumothorax. HEART, MEDIASTINUM AND REY: Heart is normal in size. Normal upper mediastinal and hilar contour. BONES AND SOFT TISSUES: No acute abnormality. IMPRESSION: No acute abnormality. WSN: [id number] Ordering Physician: Brianna Quinones Dictated By: Fidel Lomax MD Dictated Date/Time: 10/21/21 7:34 pm Reviewed By: Fidel Lomax MD Signed By: Fidel Lomax MD Signed Date/Time: 10/21/21 7:34 pm Transcribed By: ANAYELI Transcribed Date/Time: 10/21/21 7:33 pm Vital Signs Most recent to oldest 1 2 3 [Reference Range]: Oxygen Saturation [94-100 %] 95 % 98 % 99 % (10/21/21 6:33 PM) (10/21/21 6:26 PM) (10/21/21 4:4 8 PM) Pulse Rate [55-90 bpm] 80 bpm 99 bpm 99 bpm (10/21/21 6:33 PM) *H* *H* (10/21/21 6:26 PM) (10/21/21 4:48 PM) Blood Pressure [90-138/55-84 mm 151/96 mm Hg 145/98 mm Hg 146/97 mm Hg Hg] *H* *H* *H* (10/21/21 6:33 PM) (10/21/21 6:26 PM) (10/21/21 3:2 5 PM) Respiratory Rate [16-30 br/min] 18 br/min 36 br/min 18 br/min (10/21/21 6:26 PM) *H* (10/21/21 3:25 PM) (10/21/21 4:48 PM) Temperature [96.8-100.4 DegF] 98.9 DegF 98.1 DegF 98 .1 DegF (10/21/21 6:33 PM) (10/21/21 6:26 PM) (10/21/21 3:2 5 PM) Liters per Minute 0 L/min (10/21/21 6:33 PM) Mode of Delivery (Oxygen) Room air Room air Room a ir (10/21/21 6:33 PM) (10/21/21 6:26 PM) (10/21/21 4:4 8 PM) Blood pressure sites Arm, left Arm, right Arm, left (10/21/21 6:33 PM) (10/21/21 6:26 PM) (10/21/21 3:2 5 PM) Temperature Route Oral Oral Oral (10/21/21 6:33 PM) (10/21/21 6:26 PM) (10/21/21 3:2 5 PM) Social History Social History Type Response Smoking Status Never (less than 100 in life time) entered on: 01/01/20 Sex
--- OUTSIDE RECORDS SUMMARY | 2021-12-30 21:54 | XMS_ITS | Continuity of Care Document ---
:1970 Author Organization [facility] Address [address] [place] [address]- Care Team Providers Name Role Phone Edie Bee MD Primary Care Physician [phone] Encounter [facility] Date(s): 07/29/21 - 08/28/21 [facility] [place] [address], [place] [address] Allergies, Adverse Reactions, Alerts Substance Reaction Severity Status sulfADIAZINE Rash Active droperidol Anaphylactic reaction Persistent Severe Active penicillins Rash Active Toradol1, 2 Active Keflex Rash Active Glutens rash Active 1abd upset with [id number] upset Immunizations Given and Recorded Vaccine Date [...] Not Given Patient Refuses 1Result Comment: [05/03/2018] [id number] Comment: [05/03/2018] [id number] Note: pt stated she did not want to receive vaccine today, may want later Medications Apriso 0.375 g oral capsule, extended release 4 capsule = 1.5 Gm, By Mouth, Daily in AM, # 120 capsule, 4 Refills, Maintenance, 04/01/21 11:02:00 EST, CR Capsule, [facility]/pharmacy #[id number], Partial fill [...] tablet, 1 Refills, Maintenance, 12/23/19 16:02:00 EDT, [facility]/pharmacy #[id number], 142, cm, 12/15/19 7:46:00 EDT, Height, [...] 05/29/21 18:11:00 EST, Route to Pharmacy Electronically, [facility]/pharmacy #[id number], Partial fill upon patient request if the prescriptio... Start Date: 05/29/21 Status: OrderedDaily-Madi with Iron oral tablet 1 tablet, By Mouth, Daily, # 90 tablet, 1 Refills, Maintenance, 12/02/19 14:20:00 EDT, [facility]/pharmacy #[id number], 1 tablet By Mouth Daily, 142, [...] capsule, 0 Refills, Maintenance, 11/21/19 12:43:00 EDT, [facility] STORE [id number], 142, cm, 11/16/19 8:05:00 EDT, Height, 90.7, kg, 10/11/19 1:24:00 EDT, Dry Weight Start Date: 11/21/19 Status: OrderedDupixent 300 mg/2 mL subcutaneous solution Every 14 days, 0 Refills, Maintenance, 11/17/19 4:27:00 EDT Start Date: 11/17/19 Status: Orderedfluticasone 50 mcg/inh nasal spray 1 sprays, Nares, Both, 2 times a day, 0 Refills, Maintenance, 11/17/19 4:21:00 EDT, [place] Start Date: 11/17/19 Status: OrderedImodium A-D 2 mg oral tablet 2 mg, 1, tablet, By Mouth, Every 4 hours, PRN, # 10 tablet, Refills 0, Tot. Refills 0, Maintenance, for loose stool, 07/27/21 19:52:00 EDT, Route to Pharmacy Electronically, [facility]/pharmacy #[id number], Partialfill upon patient request if the prescription is... Start Date: 07/27/21 Status: OrderedLatuda 40 mg oral tablet 1 tablet = 40 mg, By Mouth, Daily, # 30 tablet, 0 Refills, Maintenance, 11/17/19 4:22:00 EDT, Tablet Start Date: 11/17/19 Status: Orderedlevothyroxine 0.137 mg oral tablet 1 tablet, By Mouth, Daily, # 90 tablet, 0 Refills, Maintenance, 01/30/20 14:58:00 EST, [facility] ST[facility] [id number], 143, cm, 01/14/20 22:55:00 EDT, Height, 101, kg, 01/14/20 22:55:00 EDT, Dry Weight Start Date: 01/30/20 Status: Orderedlidocaine 5% topical film 1 patch, Topically, Daily, PRN Pain , Mild, remove after 12 hours, # 13 each, 0 Refills, Maintenance, 08/22/21 22:17:00 EDT, Film, [facility]/pharmacy #[id number], Partial fill upon patient request if the prescription is for a schedule II opioid drug., 1 patch Top... Start Date: 08/22/21 Status: Orderedmagnesium oxide 400 mg oral tablet 1 tablet, By Mouth, Daily, # 90 tablet, 3 Refills, [facility]38, 143, cm, 04/02/21 3:19:00 EST, Height, 96.2, [...] 5 Refills, Maintenance, 05/15/21 14:16:00 EST, Powder, [facility]/pharmacy #[id number], Partial fill upon patient [...]
--- OUTSIDE RECORDS SUMMARY | 2021-12-30 21:54 | XMS_ITS | Continuity of Care Document ---
:1970 Author Organization [facility] Address [address] [place] [address]- Care Team Providers Name Role Phone Long Rama MORALES Primary Care Physician Encounter [facility] Date(s): 11/04/20 - 11/05/[address] [address]- Encounter Diagnosis Asthma-COPD overlap syndrome (Discharge Diagnosis) - 11/04/20 Discharge Disposition: A-D/C Home Attending Physician: Burt Jackson DO Admitting Physician: Burt Jackson DO Referring Physician: Not on Staff, Referring [...] Not Given Patient Refuses 1Result Comment: [05/03/2018] [id number] Comment: [05/03/2018] [id number] Note: pt stated she did not want to receive vaccine today, may want later Medications acetaminophen 325 mg oral tablet 650 mg, 2, tablet, By Mouth, Every 4 hours, PRN, for 14 days, # 100 tablet, Refills 0, Tot. Refills 0, Acute 11/18/20 23:32:00 EDT, as needed for pain, 11/04/20 23:32:00 EDT, Route to Pharmacy Electronically, [facility]/pharmacy #[id number], Partial fill upon meeta... Start Date: 11/04/20 Stop Date: 11/18/20 Status: Orderedalbuterol-ipratropium 3 mg-0.5 mg/3 ml inhalation solution 3 mL, Inhalation, 4 times a day, # 360 mL, 1 Refills, Maintenance, 12/13/19 8:19:00 EDT, Inhalation Solution, [facility], 3 mL Inhalation 4 times a day, 141, cm, 12/07/19 12:18:00 EDT, Height, 100.5, kg, 12/05/19 3:32:00 EDT, Dry Weight Start Date: 12/13/19 Status: OrderedApriso 0.375 g oral capsule, extended release 4 capsule = 1.5 Gm, By Mouth, Daily in AM, # 120 capsule, 4 Refills, Maintenance, 09/07/20 8:50:00 EDT, CR Capsule, [facility]/pharmacy #[id number], Partial fill [...] capsule, 3 Refills, Maintenance, 09/28/20 7:41:00 EDT, [facility]/pharmacy #[id number], 143, cm, 09/20/20 19:45:00 EDT, Height, 106.6, kg, 09/20/20 19:45:00 EDT, Dry Weight Start Date: 09/28/20 Stop Date: 01/26/21 Status: Orderedduloxetine 60 mg oral enteric coated capsule 1 capsule, By Mouth, Daily, # 30 capsule, 0 Refills, Maintenance, 11/21/19 12:43:00 EDT, [id number], 142, cm, 11/16/19 8:05:00 EDT, Height, 90.7, kg, 10/11/19 1:24:00 EDT, Dry Weight Start Date: 11/21/19 Status: OrderedDupixent 300 mg/2 mL subcutaneous solution 0 Refills, Maintenance, 11/17/19 4:27:00 EDT Start Date: 11/17/19 Status: Orderedfluticasone 50 mcg/inh nasal spray 1 sprays, Nares, Both, 2 times a day, 0 Refills, Maintenance, 11/17/19 4:21:00 EDT, [place] Start Date: 11/17/19 Status: Orderedibuprofen 200 mg oral tablet 400 mg, 2, tablet, By Mouth, Every 4 hours, PRN, for 14 days, # 100 tablet, Refills 0, Tot. Refills 0, Acute 11/18/20 23:32:00 EDT, for pain, 11/04/20 23:32:00 EDT, Route to Pharmacy Electronically, [facility]/pharmacy #[id number], Partial fill upon patient reques... Start Date: [...] 14:58:00 EST, [facility] STORE [address]0972, 143, cm, 01/14/20 22:55:00 EDT, Height, 101, kg, 01/14/20 22:55:00 EDT, Dry Weight Start Date: 01/30/20 Status: Orderedlidocaine 4% topical film 1 patch, Topically, Daily, # 30 patch, 0 Refills, Maintenance, 01/06/20 10:41:00 EDT, Film, [facility] 3, 142, cm, 01/06/20 8:20:00 EDT, Height, 103, kg, 01/04/20 18:55:00 EDT, Dry Weight Start Date: 01/06/20 Stop Date: 02/05/20 Status: Orderedlidocaine 5% topical film 1 patch, Topically, Daily, PRN Pain , Mild, remove after 12 hours, # 13 each, 0 Refills, Maintenance, 11/04/20 23:32:00 EDT, Film, [facility]/pharmacy #[id number], Partial fill upon patient request if the prescription is for a schedule II opioid drug., 1 patch Top... Start Date: 11/04/20 Status: Orderedmagnesium oxide 400 mg (240 mg elemental magnesium) oral tablet 1 tablet, By Mouth, Daily, # 90 tablet, 3 Refills, Acute, 04/10/20 10:44:00 EST, [facility], 90, TAKE 1 TABLET BY MOUTH EVERY [...] 0 Refills, Maintenance, 12/19/19 13:39:00 EDT, Tablet, [facility]/pharmacy #[id number], 142, cm, 12/15/19 7:46:00 EDT, Height, 91, kg, 12/13/19 15:07:00 EDT, Dry Weight Start Date: 12/19/19 Status: OrderedoxyCODONE 5 mg oral tablet 5 mg, Tablet, By Mouth, Every 6 hours, PRN for Pain , Severe, Routine, 11/04/20 16:38:00 EDT Start Date: 11/04/20 Stop Date: 11/05/20 Status: Discontinuedpantoprazole 20 mg oral delayed release [...] 3 Refills, Maintenance, 01/10/20 7:53:00 EDT, Capsule, [facility]/pharmacy #[id number], 142, cm, 01/08/20 22:31:00 EDT, [...] Status Clinical In formant Service Asthma-COPD Discharge 11/04/20 overlap syndrome Diagnosis Vital Signs Most recent to oldest [Reference 1 2 3 Range]: Oxygen Saturation [94-100 %] 95 % 97 % 95 % (11/05/20 1:07 AM) (11/04/20 11:16 PM) (11/04/20 7:09 PM) Pulse Rate [55-90 bpm] 83 bpm 75 bpm 82 bpm (11/05/20 1:07 AM) (11/04/20 11:16 PM) (11/04/20 7:09 PM) Blood Pressure [90-138/55-84 mm 106/57 mm Hg 118/79 mm Hg 128/83 mm Hg Hg] (11/05/20 1:07 AM) (11/04/20 11:16 PM) (11/04/20 7:09 PM) Respiratory Rate [16-30 br/min] 18 br/min 18 br/min 18 br/min (11/05/20 1:07 AM) (11/04/20 11:16 PM) (11/04/20 8:04 PM) Temperature [96.8-100.4 DegF] 98.2 DegF 98.1 DegF (11/04/20 11:16 PM) (11/04/20 11:56 AM) Mode of Delivery (Oxygen) Room air Room air Room a ir (11/05/20 1:07 AM) (11/04/20 11:16 PM) (11/04/20 7:09 PM) Blood pressure sites Arm, right Arm, right Arm, left (11/05/20 1:07 AM) (11/04/20 11:16 PM) (11/04/20 7:09 PM) Temperature Route Oral Oral (11/04/20 11:16 PM) (11/04/20 11:56 AM) Social History Social History Type Response Smoking Status Never (less than 100 in life time) entered on: 01/01/20 Sex
--- OUTSIDE RECORDS SUMMARY | 2021-12-30 21:54 | XMS_ITS | Continuity of Care Document ---
:1970 Author Organization [facility] Address [address] [place] [address]- Care Team Providers Name Role Phone Pbjonas Nasima FAITH Primary Care Physician Encounter [facility] Date(s): 06/06/20 - 07/06/20 [facility] [place] [address] [place], [place] [address] Allergies, Adverse Reactions, Alerts Substance Reaction Severity [...] Not Given Patient Refuses 1Result Comment: [05/03/2018] [id number] Comment: [05/03/2018] [id number] Note: pt stated she did not want to receive vaccine today, may want later Medications albuterol-ipratropium 3 mg-0.5 mg/3 ml inhalation solution 3 mL, Inhalation, 4 times a day, # 360 mL, 1 Refills, Maintenance, 12/13/19 8:19:00 EDT, Inhalation Solution, [facility], 3 mL Inhalation 4 times a day, 141, cm, 12/07/19 12:18:00 EDT, Height, 100.5, kg, 12/05/19 3:32:00 EDT, Dry Weight Start Date: 12/13/19 Status: OrderedAzithromycin 5 Day Dose Pack 250 mg oral tablet 1 pack/packet, By Mouth, Once, # 6 tablet, 0 Refills, Soft Stop, 06/27/20 15:07:00 EDT, Tablet, [facility]/pharmacy #[id number], Partial fill upon [...] EDT, Route to Pharmacy Electronically, [facility] 3, 142, cm, 01/06/20 8:20:00EDT, Height, 103, kg, 01/04/20 18:55:00 EDT, Dry... Start Date: 01/06/20 Status: Orderedcetirizine 10 mg oral tablet 1 tablet, By Mouth, Daily, # 90 tablet, 1 Refills, Maintenance, 12/23/19 16:02:00 EDT, [facility]/pharmacy #[id number], 142, cm, 12/15/19 [...] capsule, 3 Refills, Maintenance, 06/30/20 12:45:00 EDT, [facility]/pharmacy #[id number], 142, cm, 06/27/20 14:47:00 EDT, Height, 100, kg, 06/18/20 15:45:00 EDT, Dry Weight Start Date: 06/30/20 Stop Date: 10/28/20 Status: Orderedduloxetine 60 mg oral enteric coated capsule 1 capsule, By Mouth, Daily, # 30 capsule, 0 Refills, Maintenance, 11/21/19 12:43:00 EDT, [facility] STORE 40778, 142, cm, 11/16/19 8:05:00 EDT, Height, 90.7, kg, 10/11/19 1:24:00 EDT, Dry Weight Start Date: 11/21/19 Status: OrderedDupixent 300 mg/2 mL subcutaneous solution 0 Refills, Maintenance, 11/17/19 4:27:00 EDT Start Date: 11/17/19 Status: Orderedfluticasone 50 mcg/inh nasal spray 1 sprays, Nares, Both, 2 times a day, 0 Refills, Maintenance, 11/17/19 4:21:00 EDT, [place] Start Date: 11/17/19 Status: Orderedlamotrigine 25 mg [...] Refills, Maintenance, 01/30/20 14:58:00 EST, [facility], 143, cm, 01/14/20 22:55:00 EDT, Height, 101, kg, 01/14/20 22:55:00 EDT, Dry Weight Start Date: 01/30/20 Status: Orderedlidocaine 4% topical film 1 patch, Topically, Daily, # 30 patch, 0 Refills, Maintenance, 01/06/20 10:41:00 EDT, Film, [facility] 3, 142, cm, 01/06/20 8:20:00 EDT, Height, 103, kg, 01/04/20 18:55:00 EDT, Dry Weight Start Date: 01/06/20 Stop Date: 02/05/20 Status: Orderedmagnesium oxide 400 mg (240 mg elemental magnesium) oral tablet 1 tablet, By Mouth, Daily, # 90 tablet, 3 Refills, Acute, 04/10/20 10:44:00 EST, [facility], 90, TAKE 1 TABLET BY MOUTH EVERY DAY, 143, cm, 03/27/20 7:23:00 EST, Height, 101, kg, 01/14/20 22:55:00EDT, Dry Weight Start Date: 04/10/20 Status: Orderedmeloxicam 7.5 mg oral tablet 1 tablet, By Mouth, Daily, # 30 tablet, 0 Refills, Maintenance, 11/23/19 18:18:00 EDT, [facility], 142, cm, 11/16/19 8:05:00 EDT, Height, 90.7, [...] 0 Refills, Maintenance, 12/19/19 13:39:00 EDT, Tablet, [facility]/pharmacy #[id number], 142, cm, 12/15/19 [...] 3 Refills, Maintenance, 01/10/20 7:53:00 EDT, Capsule, [facility]/pharmacy #[id number], 142, cm, 01/08/20 [...]
--- OUTSIDE RECORDS SUMMARY | 2021-12-30 21:54 | XMS_ITS | Continuity of Care Document ---
:1970 Author Organization [facility] Address [address] [place] [address]- Care Team Providers Name Role Phone Fidel Sheffield MD, Mohan Primary Care Physician [phone] Encounter [facility] Date(s): 03/15/19 - 03/25/19 [facility] [address] [place] [id number] Attending Physician: Vinny Cornejo Admitting Physician: Vinny [...] Not Given Patient Refuses 1Result Comment: [05/03/2018] [id number] Comment: [05/03/2018] [id number] Note: pt stated she did not want [...] TAKE 1 TABLET BY MOUTH EVERY DAY, [facility]/pharmacy #[id number] Start Date: 12/06/18 Status: OrderedclonazePAM 1 [...] 11:33:33 EDT, Inhaler Start Date: 10/04/18 Status: OrderedReglan 10 mg oral tablet 1 [...]
--- OUTSIDE RECORDS SUMMARY | 2021-12-30 21:55 | XMS_ITS | Continuity of Care Document ---
:1970 Author Organization [facility] Address [address] [place] [address]- Care Team Providers Name Role Phone Edie Bee MD Primary Care Physician Encounter [facility] Date(s): 11/21/21 - 12/21/21 [facility] [address] [place] [id number] Allergies, Adverse Reactions, Alerts Substance Reaction Severity Status sulfADIAZINE Rash Active droperidol Anaphylactic reaction Persistent Severe Active penicillins Rash Active Toradol1, 2 Active Keflex Rash Active Glutens rash Active 1abd upset with [id number] upset Immunizations Given and Recorded Vaccine Date [...] Not Given Patient Refuses 1Result Comment: [05/03/2018] [id number] Comment: [05/03/2018] [id number] Note: pt stated she did not want [...] 05/29/21 18:11:00 EST, Route to Pharmacy Electronically, [facility]/pharmacy #[id number], Partial fill [...] 90 capsule, 1 Refills, 11/19/21 7:55:00 EDT, [facility], 142, cm, 10/22/21 16:16:00 EDT, Height, 90.8, kg, 10/22/21 16:16:00 EDT, Dry Weight Start Date: 11/19/21 Status: Orderedduloxetine 60 mg oral enteric coated capsule 1 capsule, By Mouth, Daily, # 30 capsule, 0 Refills, Maintenance, 11/21/19 12:43:00 EDT, [facility] STORE 23366, 142, cm, 11/16/19 8:05:00 EDT, Height, 90.7, kg, 10/11/19 1:24:00 EDT, Dry Weight Start Date: 11/21/19 Status: OrderedDupixent 300 mg/2 mL subcutaneous solution Every 14 days, 0 Refills, Maintenance, 11/17/19 4:27:00 EDT Start Date: 11/17/19 Status: Orderedfluticasone 50 mcg/inh nasal spray 1 sprays, Nares, Both, 2 times a day, 0 Refills, Maintenance, 11/17/19 4:21:00 EDT, [place] Start Date: 11/17/19 Status: OrderedImodium A-D 2 mg oral tablet 2 mg, 1, tablet, By Mouth, Every 4 hours, PRN, # 10 tablet, Refills 0, Tot. Refills 0, Maintenance, for loose stool, 07/27/21 19:52:00 EDT, Route to Pharmacy Electronically, [facility]/pharmacy #[id number], Partialfill upon patient request if the prescription is... Start Date: 07/27/21 Status: Orderedindomethacin 25 mg oral capsule 1 capsule = 25 mg, By Mouth, 3 times a day, PRN for arthritis, with food or milk, # 21 capsule, 0 Refills, Maintenance, 09/03/21 11:42:00 EDT, Capsule, [facility], Partial fill upon patient [...] 14:58:00 EST, [facility] STORE 11227, 143, cm, 01/14/20 22:55:00 EDT, Height, 101, kg, 01/14/20 22:55:00 EDT, Dry Weight Start Date: 01/30/20 Status: Orderedlidocaine 5% topical film 1 patch, Topically, Daily, PRN Pain , Mild, remove after 12 hours, # 13 each, 0 Refills, Maintenance, 08/22/21 22:17:00 EDT, Film, [facility]/pharmacy #[id number], Partial fill upon patient request if the prescription is for a schedule II opioid drug., 1 patch Top... Start Date: 08/22/21 Status: Orderedmagnesium oxide 400 mg oral tablet 1 tablet, By Mouth, Daily, # 90 tablet, 3 Refills, [facility], 143, cm, 04/02/21 3:19:00 EST, Height, 96.2, kg, 04/02/21 3:19:00 EST, Dry Weight Start Date: 04/08/21 Status: Orderedmesalamine 0.375 g oral capsule, extended release 4 capsule, By Mouth, Daily in AM, # 120 capsule, 4 Refills, 10/04/21 16:26:00 EDT, [facility], 142, cm, 09/04/21 17:25:00 [...] 5 Refills, Maintenance, 05/15/21 14:16:00 EST, Powder, [facility]/pharmacy #[id number], Partial fill upon patient request if the prescription is fora schedule II opioid drug., 143, cm, 05/15/21 14:... Start Date: 05/15/21 Stop Date: 11/11/21 Status: OrderedTrulance 3 mg oral tablet 1 tablet, By Mouth, Daily, # 30 tablet, 2 Refills, Maintenance, 11/21/21 18:20:00 EDT, [facility], 142, cm, 11/20/21 9:07:00 EDT, Height, 90.8, kg, 10/22/21 16:16:00 EDT, Dry Weight Start Date: 11/21/21 Status: OrderedVitamin D3 1000 intl units oral tablet 1 tablet = 1,000 International_Units, By Mouth, Daily, 1 tablet = 1,000 International Units, By Mouth, Daily. 90 day supply, # 90 tablet, 3 Refills, Maintenance, 03/16/20 16:49:00 EST, Tablet, [facility]/pharmacy #[id number], 143, cm, 02/29/20 9:09:00 EST, Height... Start Date: 03/16/20 Status: OrderedZofran 4 mg oral tablet 1 tablet = 4 mg, By Mouth, Every 8 hours, PRN as needed for nausea/vomiting, # 15 tablet, 0 Refills,Maintenance, 04/01/21 23:03:00 EST, Tablet, [facility]/pharmacy #[id number], Partial fill upon patient request ifthe prescription [...] PersonnelName: Edie Bee MD Address: [address] [place] [address]-
--- OUTSIDE RECORDS SUMMARY | 2021-12-30 21:55 | XMS_ITS | Continuity of Care Document ---
:1970 Author Organization [facility] Address [address] [place] [address]- Care Team Providers Name Role Phone Pbjonas Nasima FAITH Primary Care Physician Encounter [facility] Date(s): 10/21/20 - 10/22/[address] [address]- Discharge Disposition: A-D/C Home Attending Physician: Fernando [...] Not Given Patient Refuses 1Result Comment: [05/03/2018] [id number] Comment: [05/03/2018] [id number] Note: pt stated she did not want to receive vaccine today, may want later Medications albuterol-ipratropium 3 mg-0.5 mg/3 ml inhalation solution 3 mL, Inhalation, 4 times a day, # 360 mL, 1 Refills, Maintenance, 12/13/19 8:19:00 EDT, Inhalation Solution, [facility], 3 mL Inhalation 4 [...] capsule, 3 Refills, Maintenance, 09/28/20 7:41:00 EDT, [facility]/pharmacy #[id number], 143, cm, 09/20/20 19:45:00 EDT, Height, 106.6, kg, 09/20/20 19:45:00 EDT, Dry Weight Start Date: 09/28/20 Stop Date: 01/26/21 Status: Orderedduloxetine 60 mg oral enteric coated capsule 1 capsule, By Mouth, Daily, # 30 capsule, 0 Refills, Maintenance, 11/21/19 12:43:00 EDT, [facility], 142, cm, 11/16/19 8:05:00 EDT, Height, 90.7, kg, 10/11/19 1:24:00 EDT, Dry Weight Start Date: 11/21/19 Status: OrderedDupixent 300 mg/2 mL subcutaneous solution 0 Refills, Maintenance, 11/17/19 4:27:00 EDT Start Date: 11/17/19 Status: OrderedFioricet Tablet 1 tablet, Tablet, By Mouth, Once, STAT, 10/22/20 1:15:00 EDT, Stop date 10/22/20 1:15:00 EDT Notes: Butalbital 50mg, Not to exceed 4000mg of Acetaminophen per 24 hours. 325mg, Caffeine 40mg pertablet Start Date: 10/22/20 Stop Date: 10/22/20 Status: Completedfluticasone 50 mcg/inh nasal spray 1 sprays, Nares, Both, 2 times a day, 0 Refills, Maintenance, 11/17/19 4:21:00 EDT, [employer] Start Date: 11/17/19 Status: Orderedlamotrigine 25 mg oral tablet 25 mg, 1, tablet, By Mouth, 2 times a day, # 60 tablet, Refills 0, Maintenance, 11/17/19 4:23:00 EDT Start Date: 11/17/19 Status: OrderedLasix 20 mg oral tablet 20 mg, 1, tablet, By Mouth, Daily, # 7 tablet, Refills 0, Tot. Refills 0, Maintenance, 07/15/20 22:03:00 EDT, Route to Pharmacy Electronically, [facility]/pharmacy #[id number], Partial fill upon patient request if the [...] tablet, 0 Refills, Maintenance, 01/30/20 14:58:00 EST, [facility] ST[facility] 89619, 143, cm, 01/14/20 22:55:00 EDT, Height, 101, kg, 01/14/20 22:55:00 EDT, Dry Weight Start Date: 01/30/20 Status: Orderedlidocaine 4% topical film 1 patch, Topically, Daily, # 30 patch, 0 Refills, Maintenance, 01/06/20 10:41:00 EDT, Film, [facility] 3, 142, cm, 01/06/20 8:20:00 EDT, Height, 103, kg, 01/04/20 18:55:00 EDT, Dry Weight Start Date: 01/06/20 Stop Date: 02/05/20 Status: Orderedmagnesium oxide 400 mg (240 mg elemental magnesium) oral tablet 1 tablet, By Mouth, Daily, # 90 tablet, 3 Refills, Acute, 04/10/20 10:44:00 EST, [facility] STORE [address]7212, 90, TAKE 1 TABLET BY MOUTH EVERY [...] 0 Refills, Maintenance, 12/19/19 13:39:00 EDT, Tablet, [facility]/pharmacy #[id number], 142, cm, 12/15/19 7:46:00 EDT, [...] 3 Refills, Maintenance, 01/10/20 7:53:00 EDT, Capsule, [facility]/pharmacy #[id number], 142, cm, 01/08/20 22:31:00 EDT, [...] Saturation [94-100 %] 96 % 99 % (10/22/20 2:02 AM) (10/21/20 9:09 PM) Pulse Rate [55-90 bpm] 76 bpm 75 bpm (10/22/20 2:02 AM) (10/21/20 9:09 PM) Blood Pressure [90-138/55-84 mm 109/56 mm Hg 120/70 mm Hg Hg] (10/22/20 2:02 AM) (10/21/20 9:09 PM) Respiratory Rate [16-30 br/min] 18 br/min 18 br/min 17 br/min (10/22/20 2:03 AM) (10/22/20 2:02 AM) (10/21/20 9:0 9 PM) Temperature [96.8-100.4 DegF] 98.6 DegF 97.9 DegF (10/22/20 2:02 AM) (10/21/20 9:09 PM) Mode of Delivery (Oxygen) Room air Room air (10/22/20 2:02 AM) (10/21/20 9:09 PM) Blood pressure sites Arm, right Arm, right (10/22/20 2:02 AM) (10/21/20 9:09 PM) Temperature Route Oral Oral (10/22/20 2:02 AM) (10/21/20 9:09 PM) Social History Social History Type Response Smoking Status Never (less than 100 in life time) entered on: 01/01/20 Sex
--- OUTSIDE RECORDS SUMMARY | 2021-12-30 21:55 | XMS_ITS | Continuity of Care Document ---
:1970 Author Organization [facility] Address [address] [place] [address], 3rd [facility], [address] [place] [address]- Care Team Providers Name Role Phone Go Schwarz MD Primary Care Physician [place] [facility] [place]/19 - 10/01/19 [facility] [address] [place] [address], [address] [place] [address], [address] [place] [address]- [facility] Attending Physician: Vinny Cornejo Admitting Physician: Vinny [...] Not Given Patient Refuses 1Result Comment: [05/03/2018] [id number] Comment: [05/03/2018] [id number] Note: pt stated she did not want [...] 0 Refills, Maintenance, 09/09/19 19:51:00 EDT, Gel, [facility]/pharmacy #0859, 1 application Topically 2 [...] 10/01/19 Status: Orderedfurosemide 20 mg oral tablet 40 mg, 2, tablet, By Mouth, 2 times a day, # 60 tablet, Refills 2, Tot. Refills 2, Maintenance, 09/14/19 10:02:00 EDT, [facility], cm, 09/13/19 9:15:00 EDT, Height, 91, kg, 09/07/19 23:12:00 EDT, Dry Weight Start Date: 09/14/19 Status: Orderedfurosemide 80 mg oral tablet 80 mg, 1, tablet, By Mouth, 2 times a day, # 30 tablet, Refills 0, Maintenance, 09/23/19 21:41:00 EDT Start Date: 09/23/19 Status: OrderedLatuda 20 mg oral tablet 1 tablet = 20 mg, By Mouth, Daily, # 30 tablet, 0 Refills, Maintenance, 08/25/19 4:35:00 EDT, Tablet Start Date: 08/25/19 Status: Orderedmagnesium citrate 8.85% oral liquid 150 mL = 8.725 Gm, By Mouth, Once, # 300 mL, 0 Refills, Soft Stop, 04/28/19 17:14:00 EST, Liquid, [facility], 150 mL By Mouth Once, 142, cm, 04/28/19 9:05:00 EST, Height, 92.6, kg, 03/30/19 10:30:00 EST, Dry Weight Start Date: 04/28/19 Status: Orderedmagnesium oxide 400 mg oral tablet TAKE 1 TABLET BY MOUTH EVERY DAY Start Date: 08/25/19 Status: Orderedmeloxicam 7.5 mg oral tablet 1 tablet, By Mouth, Daily, # 30 tablet, 0 Refills, Maintenance, 09/22/19 9:14:00 EDT, [facility] STORE 63463, 142, cm, 09/13/19 9:15:00 EDT, Height, 91, kg, 09/07/19 23:12:00 EDT, Dry Weight Start Date: 09/22/19 Status: Orderedmontelukast 10 mg oral tablet 10 mg, 1, tablet, By Mouth, Daily, Refills 0, Maintenance, 08/25/19 4:35:00 EDT Start Date: 08/25/19 Status: Orderednystatin 132289 u/ml oral suspension 1 mL = 100,000 units, By Mouth, 4 times a day, # 30 mL, 0 Refills, Maintenance, 08/25/19 4:36:00 EDT, Suspension Start Date: 08/25/19 Status: Orderedondansetron 4 mg oral tablet 1 tablet = 4 mg, By Mouth, Every 8 hours, PRN as needed for nausea and vomiting, # 15 tablet, 0 Refills, Maintenance, 08/10/19 15:44:00 EDT, Tablet, [facility]/pharmacy #0859, 142, cm, 08/08/19 8:45:00 [...]
--- OUTSIDE RECORDS SUMMARY | 2021-12-30 21:55 | XMS_ITS | Continuity of Care Document ---
:1970 Author Organization [facility] Address [address] [place] [address]- Care Team Providers Name Role Phone Go Schwarz MD Primary Care Physician [place] [facility] [place] 10/04/19 - 11/03/19 [facility] [address] [place] [address]- [facility] Attending Physician: Vinny Cornejo Admitting Physician: AdmtrVinny Referring Physician: Admtr, Ar8 Allergies, Adverse Reactions, [...] Not Given Patient Refuses 1Result Comment: [05/03/2018] [id number] Comment: [05/03/2018] [id number] Note: pt stated she did not want [...] Refills, Soft Stop, 10/11/19 13:41:00 EDT, Tablet, [facility]/pharmacy #0859, 140, cm, 10/11/19 1:24:00 EDT, [...] Refills, Maintenance, 11/03/19 17:40:00 EDT, [facility], 140, cm, 10/11/19 1:24:00 EDT, Height, 90.7, [...] 0 Refills, Maintenance, 09/09/19 19:51:00 EDT, Gel, [facility]/pharmacy #0859, 1 application Topically 2 times [...] 0 Refills, Maintenance, 10/27/19 19:52:00 EDT, Capsule, [facility]/pharmacy #0859, 140, cm, 10/11/19 1:24:00 EDT, [...] 11/03/19 17:40:00 EDT, Route to Pharmacy Electronically, [facility] STORE 79268, 140, cm, 10/11/19 1:24:00 EDT, Height,90.7, kg, 10/11/19 1:24:00 EDT, Dry Weight Start Date: 11/03/19 Status: OrderedLatuda 20 mg oral tablet 1 tablet = 20 mg, By Mouth, Daily, # 30 tablet, 0 Refills, Maintenance, 08/25/19 4:35:00 EDT, Tablet Start Date: 08/25/19 Status: Orderedlevothyroxine 0.137 mg oral tablet 1 tablet, By Mouth, Daily, # 30 tablet, 5 Refills, Maintenance, 10/20/19 9:31:00 EDT, [facility], cm, 10/11/19 1:24:00 EDT, Height, [...] tablet, 0 Refills, Maintenance, 10/27/19 13:05:00 EDT, [facility] STORE 79644, 140, cm, 10/11/19 1:24:00 EDT, Height, 90.7, [...] EDT, Supply Start Date: 10/14/19 Status: Orderednystatin 024436 u/ml oral suspension 1 mL = 100,000 units, By Mouth, 4 times a day, # 30 mL, 0 Refills, Maintenance, 05/28/20 4:36:00 EDT, Suspension Start Date: 08/25/19 Status: Orderedondansetron 4 mg oral tablet 1 tablet = 4 mg, By Mouth, Every 8 hours, PRN as needed for nausea and vomiting, # 15 tablet, 0 Refills, Maintenance, 08/10/19 15:44:00 EDT, Tablet, [facility]/pharmacy #0859, 142, cm, 08/08/19 8:45:00 EDT, [...] 0 Refills, Maintenance, 10/14/19 14:35:00 EDT, Tablet, [facility]/pharmacy #0859, 140, cm, ... Start Date: 10/14/19 Status: Orderedpregabalin 75 mg oral capsule 1 capsule = 75 mg, By Mouth, 2 times a day, # 60 capsule, 0 Refills, Maintenance, 11/03/19 17:43:00 EDT, Capsule, [facility]/pharmacy #0859, 140, cm, 10/11/19 1:24:00 EDT, [...] 0 Refills, Maintenance, 10/11/19 13:42:00 EDT, Syrup, [facility]/pharmacy #0859, 5 mL By Mouth Every [...] 0 Refills, Maintenance, 10/10/19 22:21:00 EDT, Aerosol, [facility]/pharmacy #0859, 142, cm, 10/10/19 21:00:00 EDT, Height, 91, kg, 10/10/19 21:00:00 EDT, Dry Weight Start Date: 7/13/20 Status: Ordered Problem List Condition Effective Dates [...]
--- OUTSIDE RECORDS SUMMARY | 2021-12-30 21:55 | XMS_ITS | Continuity of Care Document ---
:1970 Author Organization [facility] Address [address] [place] [address]- Care Team Providers Name Role Phone Fidle Sheffield MD, Mohan Primary Care Physician [phone] Encounter [facility] [place] Date(s): 06/03/19 - 06/03/[address] [address]- [facility] Encounter Diagnosis Fall (Final) - 06/03/19 Fracture (Final) - 06/03/19 Discharge Disposition: A-D/C Home Attending Physician: Darian uRiz MD Admitting Physician: Darina Ruiz MD Referring Physician: Not on Staff, Referring [...] Not Given Patient Refuses 1Result Comment: [05/03/2018] [id number] Comment: [05/03/2018] [id number] Note: pt stated she did not want [...] Maintenance, 04/19/19 13:22:00 EST, CR Capsule, [facility]/pharmacy #0859, 142, cm, 04/15/19 9:03:00 EST, [...] 3 Refills, Maintenance, 04/19/19 13:22:00EST, Capsule, [facility]/pharmacy #0859, 142, cm, 04/15/19 9:03:00 EST, [...] EDT, 04/01/19 13:49:00 EST, EC Tablet, [facility]/pharmacy #0859, 142, cm, 04/01/19 11:22:00 EST, [...] 04/28/19 17:14:00 EST, Liquid, [facility]/pharmacy #0315, 150 mL By Mouth Once, 142, cm, 04/28/19 9:05:00 EST, Height, 92.6, kg, 03/30/19 10:30:00 EST, Dry Weight Start Date: 04/28/19 Status: OrderedMiraLax oral powder for reconstitution = 17 Gm, By Mouth, Daily, dissolve in water before taking, # 255 Gm, 1 Refills, Acute 06/23/19 11:00:00 EDT, 04/01/19 13:47:00 EST, REC Powder, [facility]/pharmacy #0859, 17 Gm By Mouth Daily,Instr:dissolve [...] 06/09/19 11:00:00 EDT, 04/01/19 13:48:00 EST, Tablet, [facility]/pharmacy #0859, 2 tablet By Mouth Daily [...] Refills, Maintenance, 05/18/19 20:08:00 EST, DIS Tablet, [facility]/pharmacy #0315, 142.24, cm, 05/12/19 15:50:00 EST, [...] Exam Date Time Procedure Performing Provider Status 06/03/19 3:14 PM Chest Single Frontal View Nikki Ann; Aut h (Verified) Notes:(Chest Single Frontal View) Reason For Exam: Pleuritic PainRESULT: Chest Single Frontal View Chest Single Frontal View INDICATION / CLINICAL QUESTION: Pleuritic pain after fall from standing. COMPARISON: 05/12/2019 FINDINGS: LINES AND TUBES: None. LUNGS AND PLEURA: Clear lungs. Normal pulmonary vascularity. No pleural effusion. No pneumothorax. HEART, MEDIASTINUM AND REY: Normal. BONES AND SOFT TISSUES: No acute abnormality. IMPRESSION: No acute abnormality. WSN: [id number] Ordering Physician: Fidel Zavaleta Dictated By: Armen Vincent MD Dictated Date/Time: 06/03/19 3:16 pm Reviewed By: Armen Vincent MD Signed By: Armen Vincent MD Signed Date/Time: 06/03/19 3:16 pm Transcribed By: ANAYELI Transcribed Date/Time: 06/03/19 3:15 pm Exam Date Time Procedure Performing Provider Status 06/03/19 3:14 PM Shoulder Min 2 Views Left Archambeau, Nikki; Aut h (Verified) Notes:(Shoulder Min 2 Views Left) Reason For Exam: TraumaRESULT: Shoulder Min 2 Views Left Left shoulder , 2 views INDICATION: Pain after fall from standing COMPARISON: 05/18/2019 FINDINGS: No fracture or dislocation. No arthritic change of the glenohumeral joint. Normal AC joint and portions of the clavicle included on the exam. No calcification of the rotator cuff. IMPRESSION: Normal. WSN: [id number] Ordering Physician: Fidel Zavaleta Dictated By: Armen Vincent MD Dictated Date/Time: 06/03/19 3:15 pm Reviewed By: Armen Vincnet MD Signed By: Armen Vincent MD Signed Date/Time: 06/03/19 3:15 pm Transcribed By: ANAYELI Transcribed Date/Time: 06/03/19 3:14 pm Vital Signs Most recent to oldest [Reference 1 2 3 Range]: Oxygen Saturation [94-100 %] 98 % 96 % 100 % (06/03/19 9:36 PM) (06/03/19 6:06 PM) (06/03/19 1:28 P M) Pulse Rate [55-90 bpm] 100 bpm 89 bpm 87 bpm *H* (06/03/19 6:06 PM) (06/03/19 1:28 PM ) (06/03/19 9:36 PM) Blood Pressure [90-138/55-84 mm 134/89 mm Hg 123/78 mm Hg 129/81 mm Hg Hg] (06/03/19 9:36 PM) (06/03/19 6:06 PM) (06/03/19 1:28 P M) Respiratory Rate [16-30 br/min] 20 br/min 20 br/min 16 br/min (06/03/19 9:36 PM) (06/03/19 9:20 PM) (06/03/19 6:10 P M) Temperature [96.8-100.4 DegF] 98.1 DegF 98.5 DegF (06/03/19 9:36 PM) (06/03/19 1:28 PM) Mode of Delivery (Oxygen) Room air Room air Room a ir (06/03/19 9:36 PM) (06/03/19 6:06 PM) (06/03/19 1:28 P M) Blood pressure sites Arm, left Arm, right (06/03/19 9:36 PM) (06/03/19 1:28 PM) Temperature Route Oral Oral (06/03/19 9:36 PM) (06/03/19 1:28 PM) Social History Social History Type Response Smoking Status Never smoker; Tobacco user i n household: No entered on: 10/25/14 Sex Female
--- OUTSIDE RECORDS SUMMARY | 2021-12-30 21:55 | XMS_ITS | Continuity of Care Document ---
:1970 Author Organization [facility] Address [address] [place] [address]- Care Team Providers Name Role Phone Nasima Narayan DO Primary Care Physician Encounter [facility] Date(s): 02/29/20 - 03/30/20 [facility] [address] [address] Attending Physician: Vinny Cornejo Admitting Physician: Vinny [...] Not Given Patient Refuses 1Result Comment: [05/03/2018] [id number] Comment: [05/03/2018] [id number] Note: pt stated she did not want to receive vaccine today, may want later Medications albuterol-ipratropium 3 mg-0.5 mg/3 ml inhalation solution 3 mL, Inhalation, 4 times a day, # 360 mL, 1 Refills, Maintenance, 12/13/19 8:19:00 EDT, Inhalation Solution, [facility], 3 mL Inhalation 4 [...] 10:18:00 EDT, Route to Pharmacy Electronically, [facility] 3, 142, cm, 01/06/20 8:20:00EDT, Height, 103, kg, 01/04/20 18:55:00 EDT, Dry... Start Date: 01/06/20 Status: Orderedcetirizine 10 mg oral tablet 1 tablet, By Mouth, Daily, # 90 tablet, 1 Refills, Maintenance, 12/23/19 16:02:00 EDT, [facility]/pharmacy #0859, 142, cm, 12/15/19 7:46:00 [...] tablet, 1 Refills, Maintenance, 12/02/19 14:20:00 EDT, [facility]/pharmacy #0859, 1 tablet By Mouth [...] capsule, 0 Refills, Maintenance, 11/21/19 12:43:00 EDT, [facility] STORE 05599, 142, cm, 11/16/19 8:05:00 EDT, Height, 90.7, kg, 10/11/19 1:24:00 EDT, Dry Weight Start Date: 11/21/19 Status: OrderedDupixent 300 mg/2 mL subcutaneous solution 0 Refills, Maintenance, 11/17/19 4:27:00 EDT Start Date: 11/17/19 Status: Orderedfluticasone 50 mcg/inh nasal spray 1 sprays, Nares, Both, 2 times a day, 0 Refills, Maintenance, 11/17/19 4:21:00 EDT, [place] Start Date: 11/17/19 Status: Orderedlamotrigine 25 mg [...] Refills, Maintenance, 01/30/20 14:58:00 EST, [facility], 143, cm, 01/14/20 22:55:00 EDT, Height, 101, kg, 01/14/20 22:55:00 EDT, Dry Weight Start Date: 01/30/20 Status: Orderedlidocaine 4% topical film 1 patch, Topically, Daily, # 30 patch, 0 Refills, Maintenance, 01/06/20 10:41:00 EDT, Film, [facility] 3, 142, cm, 01/06/20 8:20:00 EDT, [...] Refills, Maintenance, 11/23/19 18:18:00 EDT, [facility], 142, cm, 11/16/19 8:05:00 EDT, Height, 90.7, kg, 10/11/19 1:24:00 EDT, Dry Weight Start Date: 11/23/19 Status: Orderedmontelukast 10 mg oral tablet 10 mg, 1, tablet, By Mouth, Daily in PM, # 30 tablet, Refills 0, Maintenance, 11/17/19 4:22:00 EDT Start Date: 11/17/19 Status: Orderednystatin 898771 u/ml oral suspension 1 mL = 100,000 units, By Mouth, 4 times a day, # 30 mL, 0 Refills, Maintenance, 11/17/19 4:28:00 EDT, Suspension Start Date: 11/17/19 Status: Orderedondansetron 4 mg oral tablet 1 tablet = 4 mg, By Mouth, Every 8 hours, PRN Nausea & Vomiting, # 10 tablet, 0 Refills, Maintenance, 12/19/19 13:39:00 EDT, Tablet, [facility]/pharmacy #0859, 142, cm, 12/15/19 7:46:00 [...] 3 Refills, Maintenance, 01/10/20 7:53:00 EDT, Capsule, [facility]/pharmacy #0859, 142, cm, 01/08/20 22:31:00 EDT, [...]
--- OUTSIDE RECORDS SUMMARY | 2021-12-30 21:55 | XMS_ITS | Continuity of Care Document ---
:1970 Author Organization [facility] Address [address] [address]- Care Team Providers Name Role Phone Edie Bee MD Primary Care Physician [phone] Encounter [facility] [place] Date(s): 10/18/21 - 11/17/21 [facility] [address] [facility] [address] [place] [address] Attending Physician: Vinny Cornejo Admitting Physician: Admtr, Vinny Referring Physician: Admtr, Ar8 Allergies, Adverse Reactions, Alerts Substance Reaction Severity Status sulfADIAZINE Rash Active droperidol Anaphylactic reaction Persistent Severe Active penicillins Rash Active Toradol1, 2 Active Keflex Rash Active Glutens rash Active 1abd upset with [id number] upset Immunizations Given and Recorded Vaccine Date [...] Not Given Patient Refuses 1Result Comment: [05/03/2018] [id number] Comment: [05/03/2018] [id number] Note: pt stated she did not want [...] 05/29/21 18:11:00 EST, Route to Pharmacy Electronically, [facility]/pharmacy [...] ABDOMINAL CRAMPS, # 90 capsule, 0 Refills, [facility], 143, cm, 10/16/21 19:52:00 EDT, Height, 88.5, kg, 10/16/21 19:52:00 EDT, Dry Weight Start Date: 10/17/21 Status: Orderedduloxetine 60 mg oral enteric coated capsule 1 capsule, By Mouth, Daily, # 30 capsule, 0 Refills, Maintenance, 11/21/19 12:43:00 EDT, [facility] STORE 92209, 142, cm, 11/16/19 8:05:00 EDT, Height, 90.7, kg, 10/11/19 1:24:00 EDT, Dry Weight Start Date: 11/21/19 Status: OrderedDupixent 300 mg/2 mL subcutaneous solution Every 14 days, 0 Refills, Maintenance, 11/17/19 4:27:00 EDT Start Date: 11/17/19 Status: Orderedfluticasone 50 mcg/inh nasal spray 1 sprays, Nares, Both, 2 times a day, 0 Refills, Maintenance, 11/17/19 4:21:00 EDT, [place] Start Date: 11/17/19 Status: OrderedImodium A-D 2 mg oral tablet 2 mg, 1, tablet, By Mouth, Every 4 hours, PRN, # 10 tablet, Refills 0, Tot. Refills 0, Maintenance, for loose stool, 07/27/21 19:52:00 EDT, Route to Pharmacy Electronically, [facility]/pharmacy #0859, Partialfill upon patient request if the prescription is... Start Date: 07/27/21 Status: Orderedindomethacin 25 mg oral capsule 1 capsule = 25 mg, By Mouth, 3 times a day, PRN for arthritis, with food or milk, # 21 capsule, 0 Refills, Maintenance, 09/03/21 11:42:00 EDT, Capsule, [facility], Partial fill upon patient [...] Refills, Maintenance, 01/30/20 14:58:00 EST, [facility], 143, cm, 01/14/20 22:55:00 EDT, Height, 101, kg, 01/14/20 22:55:00 EDT, Dry Weight Start Date: 01/30/20 Status: Orderedlidocaine 5% topical film 1 patch, Topically, Daily, PRN Pain , Mild, remove after 12 hours, # 13 each, 0 Refills, Maintenance, 08/22/21 22:17:00 EDT, Film, [facility]/pharmacy #0859, Partial fill upon patient request if the prescription is for a schedule II opioid drug., 1 patch Top... Start Date: 08/22/21 Status: Orderedmagnesium oxide 400 mg oral tablet 1 tablet, By Mouth, Daily, # 90 tablet, 3 Refills, [facility], 143, cm, 04/02/21 3:19:00 EST, Height, 96.2, [...]
--- OUTSIDE RECORDS SUMMARY | 2021-12-30 21:55 | XMS_ITS | Continuity of Care Document ---
:1970 Author Organization [facility] Address [address] [place] [address]- Care Team Providers Name Role Phone Sylvain FAITHNasima Primary Care Physician [place] [facility] [place] 09/06[place]20 - 10/06/20 [facility] [address] [place] [address]- Allergies, Adverse Reactions, Alerts Substance Reaction Severity [...] Not Given Patient Refuses 1Result Comment: [05/03/2018] [id number] Comment: [05/03/2018] [id number] Note: pt stated she did not want to receive vaccine today, may want later Medications albuterol-ipratropium 3 mg-0.5 mg/3 ml inhalation solution 3 mL, Inhalation, 4 times a day, # 360 mL, 1 Refills, Maintenance, 12/13/19 8:19:00 EDT, Inhalation Solution, [facility], 3 mL Inhalation 4 times a day, 141, cm, 12/07/19 12:18:00 EDT, Height, 100.5, kg, 12/05/19 3:32:00 EDT, Dry Weight Start Date: 12/13/19 Status: OrderedApriso 0.375 g oral capsule, extended release 4 capsule = 1.5 Gm, By Mouth, Daily in AM, # 120 capsule, 4 Refills, Maintenance, 09/07/20 8:50:00 EDT, CR Capsule, [facility]/pharmacy #0859, Partial fill upon [...] Refills, Maintenance, 09/28/20 7:41:00 EDT, [facility]/pharmacy #0859, 143, cm, 09/20/20 19:45:00 EDT, Height, 106.6, kg, 09/20/20 19:45:00 EDT, Dry Weight Start Date: 09/28/20 Stop Date: 01/26/21 Status: Orderedduloxetine 60 mg oral enteric coated capsule 1 capsule, By Mouth, Daily, # 30 capsule, 0 Refills, Maintenance, 11/21/19 12:43:00 EDT, [facility] STORE 04557, 142, cm, 11/16/19 8:05:00 EDT, Height, 90.7, kg, 10/11/19 1:24:00 EDT, Dry Weight Start Date: 11/21/19 Status: OrderedDupixent 300 mg/2 mL subcutaneous solution 0 Refills, Maintenance, 11/17/19 4:27:00 EDT Start Date: 11/17/19 Status: Orderedfluticasone 50 mcg/inh nasal spray 1 sprays, Nares, Both, 2 times a day, 0 Refills, Maintenance, 11/17/19 4:21:00 EDT, [place] Start Date: 11/17/19 Status: Orderedlamotrigine 25 mg oral tablet 25 mg, 1, tablet, By Mouth, 2 times a day, # 60 tablet, Refills 0, Maintenance, 11/17/19 4:23:00 EDT Start Date: 11/17/19 Status: OrderedLasix 20 mg oral tablet 20 mg, 1, tablet, By Mouth, Daily, # 7 tablet, Refills 0, Tot. Refills 0, Maintenance, 07/15/20 22:03:00 EDT, Route to Pharmacy Electronically, [facility]/pharmacy #0859, Partial fill upon [...] tablet, 0 Refills, Maintenance, 01/30/20 14:58:00 EST, [facility] ST[facility]38, 143, cm, 01/14/20 22:55:00 EDT, Height, 101, [...] Refills, Acute, 04/10/20 10:44:00 EST, [facility], 90, TAKE 1 TABLET BY MOUTH EVERY [...] Maintenance, 12/19/19 13:39:00 EDT, Tablet, [facility]/pharmacy #0859, 142, cm, 12/15/19 [...] Refills, Maintenance, 01/10/20 7:53:00 EDT, Capsule, [facility]/pharmacy #0859, 142, cm, 01/08/20 22:31:00 [...]
--- OUTSIDE RECORDS SUMMARY | 2021-12-30 21:55 | XMS_ITS | Continuity of Care Document ---
:1970 Author Organization [facility] Address [address] [place] [address]- Care Team Providers Name Role Phone Edie Bee MD Primary Care [id number] Date(s): 06/03/21 - 07/03/21 [facility] [place] [address], [place] [address] Allergies, Adverse Reactions, Alerts Substance Reaction Severity Status sulfADIAZINE Rash Active droperidol Anaphylactic reaction Persistent Severe Active penicillins Rash Active Keflex Rash Active Toradol Active Glutens rash Active Immunizations Given and Recorded Vaccine Date Status Refusal Reason tetanus/diphtheria/pertussis, acel(Tdap) 08/16/20 Given tetanus/diphtheria/pertussis, acel(Tdap)1 02/19/13 Record ed influenza virus vaccine, inactivated 03/31/19 Given influenza virus vaccine, inactivated 12/04/17 Recorded pneumococcal 23-valent vaccine2 08/28/15 Recorded Not Given Vaccine Date Status Refusal Reason pneumococcal 23-valent vaccine3 01/04/18 Not Given Patient Refuses 1Result Comment: [05/03/2018] [id number] Comment: [05/03/2018] [id number] Note: pt stated she did not want to receive vaccine today, may want later Medications Apriso 0.375 g oral capsule, extended release 4 capsule = 1.5 Gm, By Mouth, Daily in AM, # 120 capsule, 4 Refills, Maintenance, 04/01/21 11:02:00 EST, CR Capsule, [facility], Partial fill upon patient request if the [...] EST, Route to Pharmacy Electronically, [facility]/pharmacy #0859, Partial [...] Refills, Maintenance, 11/21/19 12:43:00 EDT, [facility], 142, cm, 11/16/19 8:05:00 EDT, Height, 90.7, kg, 10/11/19 1:24:00 EDT, Dry Weight Start Date: 11/21/19 Status: OrderedDupixent 300 mg/2 mL subcutaneous solution Every 14 days, 0 Refills, Maintenance, 11/17/19 4:27:00 EDT Start Date: 11/17/19 Status: Orderedfluticasone 50 mcg/inh nasal spray 1 sprays, Nares, Both, 2 times a day, 0 Refills, Maintenance, 11/17/19 4:21:00 EDT, [place] Start Date: 11/17/19 Status: OrderedLatuda 40 mg oral tablet 1 tablet = 40 mg, By Mouth, Daily, # 30 tablet, 0 Refills, Maintenance, 11/17/19 4:22:00 EDT, Tablet Start Date: 11/17/19 Status: Orderedlevothyroxine 0.137 mg oral tablet 1 tablet, By Mouth, Daily, # 90 tablet, 0 Refills, Maintenance, 01/30/20 14:58:00 EST, [facility], 143, cm, 01/14/20 22:55:00 EDT, Height, 101, kg, 01/14/20 22:55:00 EDT, Dry Weight Start Date: 01/30/20 Status: Orderedmagnesium oxide 400 mg oral tablet 1 tablet, By Mouth, Daily, # 90 tablet, 3 Refills, [facility] STORE 44275, 143, cm, 04/02/21 3:19:00 EST, Height, 96.2, [...] 5 Refills, Maintenance, 05/15/21 14:16:00 EST, Powder, [facility]/pharmacy #0859, Partial fill upon patient request if the prescription is fora schedule II opioid drug., 143, cm, 05/15/21 14:... Start Date: 05/15/21 Stop Date: 11/11/21 Status: OrderedZofran 4 mg oral tablet 1 tablet = 4 mg, By Mouth, Every 8 hours, PRN as needed for nausea/vomiting, # 15 tablet, 0 Refills,Maintenance, 04/01/21 23:03:00 EST, Tablet, [facility]/pharmacy #0859, Partial [...]
--- OUTSIDE RECORDS SUMMARY | 2021-12-30 21:55 | XMS_ITS | Continuity of Care Document ---
:1970 Author Organization [facility] Adult Address [address] [place] [address]- Care Team Providers Name Role Phone Go Schwarz MD Primary Care Physician Encounter [facility] Date(s): 10/17/19 - 11/16/19 [facility] Adult [address] [place] [id number] Allergies, Adverse Reactions, Alerts Substance Reaction Severity [...] Not Given Patient Refuses 1Result Comment: [05/03/2018] [id number] Comment: [05/03/2018] [id number] Note: pt stated she did not want [...] mL, 1 Refills, Maintenance, 11/07/19 12:29:00 EDT, [facility] STORE [address]132, 15, INHALE 1 VIAL VIA NEBULIZER 4 TIMES A DAY NEEDED FOR WHEEZING OR SHORTNESS OF BREAT... Start Date: 11/07/19 Status: OrderedAzithromycin 5 Day Dose Pack 250 mg oral tablet 1 pack/packet, By Mouth, Once, Take 2 tablets daily for first day then 1 tablet daily x 4 days, # 6 tablet, 0 Refills, Soft Stop, 10/11/19 13:41:00 EDT, Tablet, [facility]/pharmacy #0859, 140, cm, 10/11/19 1:24:00 EDT, [...] Refills, Maintenance, 11/03/19 17:40:00 EDT, [facility], 140, cm, 10/11/19 1:24:00 EDT, Height, 90.7, [...] Refills, Maintenance, 09/09/19 19:51:00 EDT, Gel, [facility]/pharmacy #0859, 1 application Topically 2 times [...] 0 Refills, Maintenance, 10/27/19 19:52:00 EDT, Capsule, [facility]/pharmacy #0859, 140, cm, 10/11/19 1:24:00 EDT, [...] Gm, 0 Refills, Maintenance, 11/16/19 9:13:00 EDT, [place], [facility]/pharmacy #0859, 1 sprays Nares, Both 2 times a day, 142, cm, 11/16/19 8:05:00 EDT, Height, 90.7, kg, 10/11/19 1:24:00 EDT, Dry Weight Start Date: 11/16/19 Status: Orderedfurosemide 20 mg oral tablet 60 mg, 3, tablet, By Mouth, 2 times a day, # 180 tablet, Refills 2, Tot. Refills 2, Maintenance, 11/04/19 13:31:00 EDT, Route to Pharmacy Electronically, [facility]/pharmacy #0859, 140, cm, 10/11/19 1:24:00 EDT, [...] tablet, 5 Refills, Maintenance, 10/20/19 9:31:00 EDT, [facility]/pharmacy #0859, 140, cm, 10/11/19 1:24:00 EDT, Height, 90.7, kg, 10/11/19 1:24:00 EDT, Dry Weight Start Date: 10/20/19 Stop Date: 04/17/20 Status: Orderedmagnesium citrate 8.85% oral liquid 150 mL = 8.725 Gm, By Mouth, Once, # 300 mL, 0 Refills, Soft Stop, 04/28/19 17:14:00 EST, Liquid, [facility]/pharmacy #0315, 150 mL By Mouth Once, 142, cm, 04/28/19 9:05:00 EST, Height, 92.6, kg, 03/30/19 10:30:00 EST, Dry Weight Start Date: 04/28/19 Status: Orderedmagnesium oxide 400 mg oral tablet TAKE 1 TABLET BY MOUTH EVERY DAY Start Date: 08/25/19 Status: Orderedmeloxicam 7.5 mg oral tablet 1 tablet, By Mouth, Daily, # 30 tablet, 0 Refills, Maintenance, 10/27/19 13:05:00 EDT, [facility] STORE [address]345, 140, cm, 10/11/19 1:24:00 EDT, Height, 90.7, [...] EDT, Supply Start Date: 10/14/19 Status: Orderednystatin 839660 u/ml oral suspension 1 mL = 100,000 units, By Mouth, 4 times a day, # 30 mL, 0 Refills, Maintenance, 08/25/19 4:36:00 EDT, Suspension Start Date: 08/25/19 Status: Orderedondansetron 4 mg oral tablet 1 tablet = 4 mg, By Mouth, Every 8 hours, PRN as needed for nausea and vomiting, # 15 tablet, 0 Refills, Maintenance, 08/10/19 15:44:00 EDT, Tablet, [facility]/pharmacy #0859, 142, cm, 08/08/19 8:45:00 EDT, [...] 0 Refills, Maintenance, 10/14/19 14:35:00 EDT, Tablet, [facility]/pharmacy #0859, 140, cm, ... Start Date: [...] 0 Refills, Maintenance, 10/11/19 13:42:00 EDT, Syrup, [facility]/pharmacy #0859, 5 mL By Mouth Every [...] 9:13:00 EDT, Aerosol, Route to Pharmacy Electronically, [id number], [facility]/pharmacy #0859, 142, cm, 11/16/19 8:05:00 EDT, [...]
--- OUTSIDE RECORDS SUMMARY | 2021-12-30 21:55 | XMS_ITS | Continuity of Care Document ---
:1970 Author Organization [facility] Address [address] [place] [address]- Care Team Providers Name Role Phone Go Schwarz MD Primary Care Physician Encounter [facility] Date(s): 11/15/19 - 12/18/[address] [address]- [facility] Attending Physician: Go Schwarz MD Admitting Physician: Go Schwarz MD Referring Physician: Go Schwarz MD Allergies, Adverse Reactions, Alerts Substance Reaction [...] Not Given Patient Refuses 1Result Comment: [05/03/2018] [id number] Comment: [05/03/2018] [id number] Note: pt stated she did not want [...] Refills, Maintenance, 12/13/19 8:19:00 EDT, Inhalation Solution, [facility] 3, 3 mL Inhalation 4 [...] 1 Refills, Maintenance, 11/28/19 12:52:00 EDT, [facility] STORE [address]31, 142, cm, 11/23/19 23:52:00 EDT, Height, 90.7, [...] 1 Refills, Maintenance, 12/02/19 14:20:00 EDT, [facility]/pharmacy #0859, 1 tablet By Mouth Daily, 142, cm, 11/23/19 23:52:00 EDT, Height, 90.7, kg, 10/11/19 1:24:00 EDT, Dry Weight Start Date: 12/02/19 Status: Orderedduloxetine 60 mg oral enteric coated capsule 1 capsule, By Mouth, Daily, # 30 capsule, 0 Refills, Maintenance, 11/21/19 12:43:00 EDT, [facility], 142, cm, 11/16/19 8:05:00 EDT, Height, 90.7, kg, 10/11/19 1:24:00 EDT, Dry Weight Start Date: 11/21/19 Status: OrderedDupixent 300 mg/2 mL subcutaneous solution 0 Refills, Maintenance, 11/17/19 4:27:00 EDT Start Date: 11/17/19 Status: Orderedfluticasone 50 mcg/inh nasal spray 1 sprays, Nares, Both, 2 times a day, 0 Refills, Maintenance, 11/17/19 4:21:00 EDT, [place] Start Date: 11/17/19 Status: Orderedlamotrigine 25 mg [...] tablet, 0 Refills, Maintenance, 11/23/19 18:18:00 EDT, [facility] STORE [address]1837, 142, cm, 11/16/19 8:05:00 EDT, Height, 90.7, kg, 10/11/19 1:24:00 EDT, Dry Weight Start Date: 11/23/19 Status: Orderedmontelukast 10 mg oral tablet 10 mg, 1, tablet, By Mouth, Daily in PM, # 30 tablet, Refills 0, Maintenance, 11/17/19 4:22:00 EDT Start Date: 11/17/19 Status: Orderednystatin 514596 u/ml oral suspension 1 mL = 100,000 [...] 0 Refills, Maintenance, 12/15/19 13:10:00 EDT, Tablet, [facility], 142, cm, [...]
--- OUTSIDE RECORDS SUMMARY | 2021-12-30 21:55 | XMS_ITS | Continuity of Care Document ---
:1970 Author Organization [facility] Address [address] [place] [address]- Care Team Providers Name Role Phone Edie Bee MD Primary Care Physician [phone] Encounter [facility] NBR [id number] Date(s): 04/22/21 - 05/22/21 [facility] [address] [place] [address]- Attending Physician: Vinny Cornejo Admitting Physician: Vinny [...] Not Given Patient Refuses 1Result Comment: [05/03/2018] [id number] Comment: [05/03/2018] [id number] Note: pt stated she did not want to receive vaccine today, may want later Medications Apriso 0.375 g oral capsule, extended release 4 capsule = 1.5 Gm, By Mouth, Daily in AM, # 120 capsule, 4 Refills, Maintenance, 04/01/21 11:02:00 EST, CR Capsule, [id number], Partial fill upon patient request if the [...] 1 Refills, Maintenance, 12/23/19 16:02:00 EDT, [facility]/pharmacy #0859, 142, [...] Refills, Maintenance, 12/02/19 14:20:00 EDT, [facility]/pharmacy #0859, 1 tablet By Mouth [...] EDT, [facility] STORE [address]238, 142, cm, 11/16/19 8:05:00 EDT, Height, 90.7, kg, 10/11/19 1:24:00 EDT, Dry Weight Start Date: 11/21/19 Status: OrderedDupixent 300 mg/2 mL subcutaneous solution Every 14 days, 0 Refills, Maintenance, 11/17/19 4:27:00 EDT Start Date: 11/17/19 Status: Orderedfluticasone 50 mcg/inh nasal spray 1 sprays, Nares, Both, 2 times a day, 0 Refills, Maintenance, 11/17/19 4:21:00 EDT, [place] Start Date: 11/17/19 Status: OrderedLatuda 40 mg oral tablet 1 tablet = 40 mg, By Mouth, Daily, # 30 tablet, 0 Refills, Maintenance, 11/17/19 4:22:00 EDT, Tablet Start Date: 11/17/19 Status: Orderedlevothyroxine 0.137 mg oral tablet 1 tablet, By Mouth, Daily, # 90 tablet, 0 Refills, Maintenance, 01/30/20 14:58:00 EST, [facility] STORE [address]14, 143, cm, 01/14/20 22:55:00 EDT, Height, 101, kg, 01/14/20 22:55:00 EDT, Dry Weight Start Date: 01/30/20 Status: Orderedmagnesium oxide 400 mg oral tablet 1 tablet, By Mouth, Daily, # 90 tablet, 3 Refills, [facility] STORE 14479, 143, cm, 04/02/21 3:19:00 EST, Height, 96.2, [...] Refills, Maintenance, 04/01/21 23:03:00EST, CR Capsule, [facility]/pharmacy #0859, Partial [...] 05/23/21 14:15:00 EST, 05/15/21 14:15:00 EST, Tablet, [facility]/pharmacy #0859, [place]... Start Date: 05/15/21 Stop Date: [...]
--- OUTSIDE RECORDS SUMMARY | 2021-12-30 21:55 | XMS_ITS | Continuity of Care Document ---
:1970 Author Organization [facility] Address [address] [place] [address]- Care Team Providers Name Role Phone Edie Bee MD Primary Care Phys[id number] Date(s): 10/03/21 - 11/02/21 [facility] [place] [address] [place], [place] [address] Allergies, Adverse Reactions, Alerts Substance Reaction Severity Status sulfADIAZINE Rash Active droperidol Anaphylactic reaction Persistent Severe Active penicillins Rash Active Toradol1, 2 Active Keflex Rash Active Glutens rash Active 1abd upset with vulgvg8dpa upset Immunizations Given and Recorded Vaccine Date [...] Not Given Patient Refuses 1Result Comment: [05/03/2018] [id number] Comment: [05/03/2018] [id number] Note: pt stated she did not want [...] tablet, 1 Refills, Maintenance, 12/23/19 16:02:00 EDT, [facility]/pharmacy #0859, 142, cm, 12/15/19 7:46:00 [...] 05/29/21 18:11:00 EST, Route to Pharmacy Electronically, [facility]/pharmacy #[id number], Partial fill upon patient request if the prescriptio... Start Date: 05/29/21 Status: OrderedDaily-Madi with Iron oral tablet 1 tablet, By Mouth, Daily, # 90 tablet, 1 Refills, Maintenance, 12/02/19 14:20:00 EDT, [facility]/pharmacy #0859, 1 tablet By Mouth Daily, [...] Maintenance, 11/21/19 12:43:00 EDT, [facility] STORE 68281, 142, cm, 11/16/19 8:05:00 EDT, Height, 90.7, kg, 10/11/19 1:24:00 EDT, Dry Weight Start Date: 11/21/19 Status: OrderedDupixent 300 mg/2 mL subcutaneous solution Every 14 days, 0 Refills, Maintenance, 11/17/19 4:27:00 EDT Start Date: 11/17/19 Status: Orderedfluticasone 50 mcg/inh nasal spray 1 sprays, Nares, Both, 2 times a day, 0 Refills, Maintenance, 11/17/19 4:21:00 EDT, [place] Start Date: 11/17/19 Status: OrderedImodium A-D 2 mg oral tablet 2 mg, 1, tablet, By Mouth, Every 4 hours, PRN, # 10 tablet, Refills 0, Tot. Refills 0, Maintenance, for loose stool, 07/27/21 19:52:00 EDT, Route to Pharmacy Electronically, [facility]/pharmacy #[id number], Partialfill upon patient request if the prescription is... Start Date: 07/27/21 Status: Orderedindomethacin 25 mg oral capsule 1 capsule = 25 mg, By Mouth, 3 times a day, PRN for arthritis, with food or milk, # 21 capsule, 0 Refills, Maintenance, 09/03/21 11:42:00 EDT, Capsule, [facility], Partial fill upon patient [...] Refills, Maintenance, 01/30/20 14:58:00 EST, [facility], 143, cm, 01/14/20 22:55:00 EDT, Height, 101, kg, 01/14/20 22:55:00 EDT, Dry Weight Start Date: 01/30/20 Status: Orderedlidocaine 5% topical film 1 patch, Topically, Daily, PRN Pain , Mild, remove after 12 hours, # 13 each, 0 Refills, Maintenance, 08/22/21 22:17:00 EDT, Film, [facility]/pharmacy #0859, Partial fill upon patient request if the prescription is for a schedule II opioid drug., 1 patch Top... Start Date: 08/22/21 Status: Orderedmagnesium oxide 400 mg oral tablet 1 tablet, By Mouth, Daily, # 90 tablet, 3 Refills, [facility], 143, cm, 04/02/21 3:19:00 EST, Height, 96.2, [...]
--- OUTSIDE RECORDS SUMMARY | 2021-12-30 21:55 | XMS_ITS | Continuity of Care Document ---
:1970 Author Organization [facility] Address [address] [place] [address]- Care Team Providers Name Role Phone Go Schwarz MD Primary Care Physician Encounter [facility] Date(s): 07/19/19 - 11/16/19 [facility] [address] [place] [address]- [facility] Attending Physician: Isiah OROZCO, Jay Olson Referring Physician: Mohan Chew MD Allergies, Adverse [...] Not Given Patient Refuses 1Result Comment: [05/03/2018] [id number] Comment: [05/03/2018] [id number] Note: pt stated she did not want [...] mL, 1 Refills, Maintenance, 11/07/19 12:29:00 EDT, [facility] STORE 10750, 15, INHALE 1 VIAL VIA NEBULIZER 4 TIMES A DAY NEEDED FOR WHEEZING OR SHORTNESS OF BREAT... Start Date: 11/07/19 Status: OrderedAzithromycin 5 Day Dose Pack 250 mg oral tablet 1 pack/packet, By Mouth, Once, Take 2 tablets daily for first day then 1 tablet daily x 4 days, # 6 tablet, 0 Refills, Soft Stop, 10/11/19 13:41:00 EDT, Tablet, [facility]/pharmacy #0859, 140, cm, 10/11/19 1:24:00 EDT, Height, [...] Refills, Maintenance, 11/03/19 17:40:00 EDT, [facility], 140, cm, 10/11/19 1:24:00 EDT, Height, 90.7, [...] 0 Refills, Maintenance, 09/09/19 19:51:00 EDT, Gel, [facility]/pharmacy #0859, 1 application Topically 2 times a [...] 0 Refills, Maintenance, 10/27/19 19:52:00 EDT, Capsule, [facility]/pharmacy #0859, 140, cm, 10/11/19 1:24:00 EDT, Height, [...] Gm, 0 Refills, Maintenance, 11/16/19 9:13:00 EDT, [place], [facility]/pharmacy #0859, 1 sprays Nares, Both 2 times a day, 142, cm, 11/16/19 8:05:00 EDT, Height, 90.7, kg, 10/11/19 1:24:00 EDT, Dry Weight Start Date: 11/16/19 Status: Orderedfurosemide 20 mg oral tablet 60 mg, 3, tablet, By Mouth, 2 times a day, # 180 tablet, Refills 2, Tot. Refills 2, Maintenance, 11/04/19 13:31:00 EDT, [id number], cm, 10/11/19 1:24:00 EDT, [...] tablet, 5 Refills, Maintenance, 10/20/19 9:31:00 EDT, [facility], cm, 10/11/19 1:24:00 EDT, Height, 90.7, kg, 10/11/19 1:24:00 EDT, Dry Weight Start Date: 10/20/19 Stop Date: 04/17/20 Status: Orderedmagnesium citrate 8.85% oral liquid 150 mL = 8.725 Gm, By Mouth, Once, # 300 mL, 0 Refills, Soft Stop, 04/28/19 17:14:00 EST, Liquid[facility] 150 mL By Mouth Once, 142, cm, 04/28/19 9:05:00 EST, Height, 92.6, kg, 03/30/19 10:30:00 EST, Dry Weight Start Date: 04/28/19 Status: Orderedmagnesium oxide 400 mg oral tablet TAKE 1 TABLET BY MOUTH EVERY DAY Start Date: 08/25/19 Status: Orderedmeloxicam 7.5 mg oral tablet 1 tablet, By Mouth, Daily, # 30 tablet, 0 Refills, Maintenance, 10/27/19 13:05:00 EDT, [facility] STORE 62552, 140, cm, 10/11/19 1:24:00 EDT, Height, 90.7, [...] EDT, Supply Start Date: 10/14/19 Status: Orderednystatin 601977 u/ml oral suspension 1 mL = 100,000 units, By Mouth, 4 times a day, # 30 mL, 0 Refills, Maintenance, 08/25/19 4:36:00 EDT, Suspension Start Date: 08/25/19 Status: Orderedondansetron 4 mg oral tablet 1 tablet = 4 mg, By Mouth, Every 8 hours, PRN as needed for nausea and vomiting, # 15 tablet, 0 Refills, Maintenance, 08/10/19 15:44:00 EDT, Tablet, [facility]/pharmacy #0859, 142, cm, 08/08/19 8:45:00 EDT, Height, [...] 0 Refills, Maintenance, 10/11/19 13:42:00 EDT, Syrup, [facility]/pharmacy #0859, 5 mL By Mouth Every 6 [...] 9:13:00 EDT, Aerosol, Route to Pharmacy Electronically, [id number], [facility]/pharmacy #0859, 142, cm, 11/16/19 8:05:00 EDT, Height, [...]
--- OUTSIDE RECORDS SUMMARY | 2021-12-30 21:55 | XMS_ITS | Continuity of Care Document ---
:1970 Author Organization [facility] Address [address] [place] [id number]- Care Team Providers Name Role Phone Fidel Sheffield MD, Mohan Primary Care Physician Encounter [facility] Date(s): 05/18/19 - 05/18/[address] [address] [facility] Discharge Disposition: A-D/C Home Attending Physician: Ivan Shipley MD Admitting Physician: Ivan Shipley MD Referring Physician: Not on Staff, Referring [...] Not Given Patient Refuses 1Result Comment: [05/03/2018] [id number] Comment: [05/03/2018] [id number] Note: pt stated she did not want [...] Refills, Maintenance, 04/19/19 13:22:00 EST, CR Capsule, [facility]/pharmacy #[id number], 142, cm, 04/15/19 9:03:00 [...] capsule, 3 Refills, Maintenance, 04/19/19 13:22:00EST, Capsule, [facility]/pharmacy #[id number], 142, cm, 04/15/19 9:03:00 [...] 11:00:00 EDT, 04/01/19 13:49:00 EST, EC Tablet, [facility]/pharmacy #[id number], 142, cm, 04/01/19 11:22:00 [...] 2 Refills, Maintenance, 04/01/19 13:47:00 EST, Capsule, [facility]/pharmacy #[id number], 142, cm, 04/01/19 11:22:00 EST, Height, 92.6, kg, 03/30/19 10:30:00 EST, Dry Weight Start Date: 04/01/19 Status: Orderedmagnesium citrate 8.85% oral liquid 150 mL = 8.725 Gm, By Mouth, Once, # 300 mL, 0 Refills, Soft Stop, 04/28/19 17:14:00 EST, Liquid, [facility]/pharmacy #[id number], 150 mL By Mouth Once, 142, cm, 04/28/19 9:05:00 EST, Height, 92.6, kg, 03/30/19 10:30:00 EST, Dry Weight Start Date: 04/28/19 Status: OrderedMiraLax oral powder for reconstitution = 17 Gm, By Mouth, Daily, dissolve in water before taking, # 255 Gm, 1 Refills, Acute 06/23/19 11:00:00 EDT, 04/01/19 13:47:00 EST, REC Powder, [facility]/pharmacy #[id number], 17 Gm By Mouth [...] 06/09/19 11:00:00 EDT, 04/01/19 13:48:00 EST, Tablet, [facility]/pharmacy #[id number], 2 tablet By Mouth [...] Refills, Maintenance, 05/18/19 20:08:00 EST, DIS Tablet, [facility]/pharmacy #[id number], 142.24, cm, 05/12/19 15:50:00 EST, Height, [...] Exam Date Time Procedure Performing Provider Status 05/18/19 7:00 PM Forearm 2 Views Left Desrosier, Ingrid; Auth (Ve rified) Notes:(Forearm 2 Views Left) Reason For Exam: with Pain;TraumaRESULT: Forearm 2 Views Left Elbow Min 3 Views Left, Forearm 2 Views Left, 3 views Refer to EMR; Reason: Trauma; with Pain; Clinical Question(s): Fracture; Hx of Present Illness: Pt is coming in with entire body pain after fall last night .. per EMS pt is seen frequently @ urgent cares for various pain complaints. Pt lives alone .. unsure why she was sent to the hospital. states she passed out but fell to her knees ; Other Objective Findings: Pt is awake and alert, speaking i COMPARISON: None. FINDINGS: No fracture or dislocation. No arthritic changes. No joint effusion. IV in medial antecubital fossa. IMPRESSION: Normal. WSN: [id number] Dictated By: Jonny Jordan DO Dictated Date/Time: 05/18/19 7:05 pm Reviewed By: Jonny Jordan DO Signed By: Jonny Jordan DO Signed Date/Time: 05/18/19 7:05 pm Transcribed By: ANAYELI Transcribed Date/Time: 05/18/19 7:04 pm Exam Date Time Procedure Performing Provider Status 05/18/19 7:00 PM Elbow Min 3 Views Left Sam Sanchezen; Auth ( Verified) Notes:(Elbow Min 3 Views Left) Reason For Exam: with Pain;TraumaRESULT: Elbow Min 3 Views Left Elbow Min 3 Views Left, Forearm 2 Views Left, 3 views Refer to EMR; Reason: Trauma; with Pain; Clinical Question(s): Fracture; Hx of Present Illness: Pt is coming in with entire body pain after fall last night .. per EMS pt is seen frequently @ urgent cares for various pain complaints. Pt lives alone .. unsure why she was sent to the hospital. states she passed out but fell to her knees ; Other Objective Findings: Pt is awake and alert, speaking i COMPARISON: None. FINDINGS: No fracture or dislocation. No arthritic changes. No joint effusion. IV in medial antecubital fossa. IMPRESSION: Normal. WSN: [id number] Dictated By: Jonny Jordan DO Dictated Date/Time: 05/18/19 7:05 pm Reviewed By: Jonny Jordan DO Signed By: Jonny Jordan DO Signed Date/Time: 05/18/19 7:05 pm Transcribed By: ANAYELI Transcribed Date/Time: 05/18/19 7:04 pm Exam Date Time Procedure Performing Provider Status 05/18/19 7:00 PM Shoulder Min 2 Views Left Ingrid Sanchez; Aut h (Verified) Notes:(Shoulder Min 2 Views Left) Reason For Exam: with Pain;TraumaRESULT: Shoulder Min 2 Views Left Shoulder Min 2 Views Left Refer to EMR; Reason: Trauma; with Pain; Clinical Question(s): Fracture; Hx of Present Illness: Pt is coming in with entire body pain after fall last night .. per EMS pt is seen frequently @ urgent cares for various pain complaints. COMPARISON: 02/19/2019 FINDINGS: No fracture or dislocation. Minimal unchanged dystrophic calcification along lateral acromion. No arthritic change of the glenohumeral joint. Normal AC joint and portions of the clavicle included on the exam. No calcification of the rotator cuff. IMPRESSION: No acute findings. WSN: [id number] Dictated By: Jonny Jordan DO Dictated Date/Time: 05/18/19 7:04 pm Reviewed By: Jonny Jordan DO Signed By: Jonny Jordan DO Signed Date/Time: 05/18/19 7:04 pm Transcribed By: ANAYELI Transcribed Date/Time: 05/18/19 7:02 pm Exam Date Time Procedure Performing Provider Status 05/18/19 7:00 PM Forearm 2 Views Right Ingrid Sanchez; Auth (V erified) Notes:(Forearm 2 Views Right) Reason For Exam: with Pain;TraumaRESULT: Forearm 2 Views Right Shoulder Min 2 Views Right, Forearm 2 Views Right History: Fall with arm pain. COMPARISON: None. FINDINGS: Shoulder: There is no fracture or dislocation. Glenohumeral joint and AC joints appear normal. No periarticular calcifications are noted. Visualized right lung is grossly clear. Forearm: There is no fracture in the forearm. There is no definite dislocation in the wrist or elbow. No soft tissue abnormality seen. IMPRESSION: No acute fracture in the shoulder or forearm. WSN: [id number] Dictated By: Kenzie Acuna MD Dictated Date/Time: 05/18/19 7:03 pm Reviewed By: Kenzie Acuna MD Signed By: Kenzie Acuna MD Signed Date/Time: 05/18/19 7:03 pm Transcribed By: ANAYELI Transcribed Date/Time: 05/18/19 7:01 pm Exam Date Time Procedure Performing Provider Status 05/18/19 7:00 PM Shoulder Min 2 Views Right Ingrid Sanchez; Au th (Verified) Notes:(Shoulder Min 2 Views Right) Reason For Exam: with Pain;TraumaRESULT: Shoulder Min 2 Views Right Shoulder Min 2 Views Right, Forearm 2 Views Right History: Fall with arm pain. COMPARISON: None. FINDINGS: Shoulder: There is no fracture or dislocation. Glenohumeral joint and AC joints appear normal. No periarticular calcifications are noted. Visualized right lung is grossly clear. Forearm: There is no fracture in the forearm. There is no definite dislocation in the wrist or elbow. No soft tissue abnormality seen. IMPRESSION: No acute fracture in the shoulder or forearm. WSN: [id number] Dictated By: Kenzie Acuna MD Dictated Date/Time: 05/18/19 7:03 pm Reviewed By: Kenzie Acuna MD Signed By: Kenzie Acuna MD Signed Date/Time: 05/18/19 7:03 pm Transcribed By: ANAYELI Transcribed Date/Time: 05/18/19 7:01 pm Vital Signs Most recent to oldest 1 2 3 [Reference Range]: Oxygen Saturation [94-100 %] 98 % 100 % (05/18/19 8:35 PM) (05/18/19 2:59 PM) Pulse Rate [55-90 bpm] 87 bpm 86 bpm (05/18/19 8:35 PM) (05/18/19 2:59 PM) Blood Pressure [90-138/55-84 mm 138/100 mm Hg 133/72 mm Hg Hg] (05/18/19 8:35 PM) (05/18/19 2:59 PM) Respiratory Rate [16-30 br/min] 18 br/min 14 br/min 20 br/min (05/18/19 8:35 PM) *L* (05/18/19 2:59 PM) (05/18/19 5:31 PM) Temperature [96.8-100.4 DegF] 98.5 DegF (05/18/19 2:59 PM) Mode of Delivery (Oxygen) Room air Room air (05/18/19 8:35 PM) (05/18/19 2:59 PM) Blood pressure sites Arm, right Arm, left (05/18/19 8:35 PM) (05/18/19 2:59 PM) Temperature Route Oral (05/18/19 2:59 PM) Social History Social History Type Response Smoking Status Never smoker; Tobacco user i n household: No entered on: 10/25/14 Sex Female
--- OUTSIDE RECORDS SUMMARY | 2021-12-30 21:56 | XMS_ITS | Continuity of Care Document ---
:1970 Author Organization [facility] Address [address] [place] [id number]- Care Team Providers Name Role Phone Nasima Narayan DO Primary Care Physician [place] [facility] Date(s): 01/17/21 - 02/16/[address] [address] Attending Physician: Vinny Cornejo Admitting Physician: AdmVinny [...] Not Given Patient Refuses 1Result Comment: [05/03/2018] [id number] Comment: [05/03/2018] [id number] Note: pt stated she did not want to receive vaccine today, may want later Medications albuterol-ipratropium 3 mg-0.5 mg/3 ml inhalation solution 3 mL, Inhalation, 4 times a day, # 360 mL, 1 Refills, Maintenance, 12/13/19 8:19:00 EDT, Inhalation Solution, [facility], 3 mL Inhalation 4 times a day, 141, cm, 12/07/19 12:18:00 EDT, Height, 100.5, kg, 12/05/19 3:32:00 EDT, Dry Weight Start Date: 12/13/19 Status: OrderedApriso 0.375 g oral capsule, extended release 4 capsule = 1.5 Gm, By Mouth, Daily in AM, # 120 capsule, 4 Refills, Maintenance, 12/04/20 10:31:00 EDT, CR Capsule, [facility]/pharmacy #[id number], Partial fill upon [...] tablet, 1 Refills, Maintenance, 12/23/19 16:02:00 EDT, [facility]/pharmacy #[id number], 142, cm, 12/15/19 [...] tablet, 1 Refills, Maintenance, 12/02/19 14:20:00 EDT, [facility]/pharmacy #[id number], 1 tablet By [...] capsule, 3 Refills, Maintenance, 09/28/20 7:41:00 EDT, [facility]/pharmacy #[id number], 143, cm, 09/20/20 19:45:00 EDT, Height, 106.6, kg, 09/20/20 19:45:00 EDT, Dry Weight Start Date: 09/28/20 Stop Date: 01/26/21 Status: Orderedduloxetine 60 mg oral enteric coated capsule 1 capsule, By Mouth, Daily, # 30 capsule, 0 Refills, Maintenance, 11/21/19 12:43:00 EDT, [facility] STORE [id number], 142, cm, 11/16/19 8:05:00 EDT, Height, 90.7, kg, 10/11/19 1:24:00 EDT, Dry Weight Start Date: 11/21/19 Status: OrderedDupixent 300 mg/2 mL subcutaneous solution Every 14 days, 0 Refills, Maintenance, 11/17/19 4:27:00 EDT Start Date: 11/17/19 Status: Orderedfluticasone 50 mcg/inh nasal spray 1 sprays, Nares, Both, 2 times a day, 0 Refills, Maintenance, 11/17/19 4:21:00 EDT, [place] Start Date: 11/17/19 Status: Orderedlamotrigine 25 mg [...] tablet, 0 Refills, Maintenance, 01/30/20 14:58:00 EST, [facility] STORE 64201, 143, cm, 01/14/20 22:55:00 EDT, Height, 101, kg, 01/14/20 22:55:00 EDT, Dry Weight Start Date: 01/30/20 Status: Orderedlidocaine 4% topical film 1 patch, Topically, Daily, # 30 patch, 0 Refills, Maintenance, 01/06/20 10:41:00 EDT, Film, [facility] 3, 142, cm, 01/06/20 8:20:00 EDT, Height, 103, kg, 01/04/20 18:55:00 EDT, Dry Weight Start Date: 01/06/20 Stop Date: 02/05/20 Status: Orderedlidocaine 5% topical film 1 patch, Topically, Daily, PRN Pain , Mild, remove after 12 hours, # 13 each, 0 Refills, Maintenance, 11/04/20 23:32:00 EDT, Film, [facility]/pharmacy #[id number], Partial fill upon patient request if the prescription is for a schedule II opioid drug., 1 patch Top... Start Date: 11/04/20 Status: Orderedmagnesium oxide 400 mg (240 mg elemental magnesium) oral tablet 1 tablet, By Mouth, Daily, # 90 tablet, 3 Refills, Acute, 04/10/20 10:44:00 EST, [facility] STORE 83148, 90, TAKE 1 TABLET BY MOUTH EVERY [...] 0 Refills, Maintenance, 12/19/19 13:39:00 EDT, Tablet, [facility]/pharmacy #[id number], 142, cm, 12/15/19 [...]
--- OUTSIDE RECORDS SUMMARY | 2021-12-30 21:56 | XMS_ITS | Continuity of Care Document ---
:1970 Author Organization [facility] Address [address] [place] [id number]- Care Team Providers Name Role Phone Rama Rodriguez NP Primary Care Physician Encounter [facility] Date(s): 10/10/20 - 12/13/20 [facility] [address] [place] [address]- Attending Physician: Staci Hameed MD Admitting Physician: Staci Hameed MD Referring Physician: Rama Rodriguez NP Allergies, Adverse Reactions, Alerts Substance Reaction [...] Not Given Patient Refuses 1Result Comment: [05/03/2018] [id number] Comment: [05/03/2018] [id number] Note: pt stated she did not want [...] Refills, Maintenance, 12/04/20 10:31:00 EDT, CR Capsule, [facility]/pharmacy #[id number], Partial fill upon patient request [...] Maintenance, 09/28/20 7:41:00 EDT, [facility]/pharmacy #[id number], 143, cm, 09/20/20 19:45:00 EDT, Height, 106.6, kg, 09/20/20 19:45:00 EDT, Dry Weight Start Date: 09/28/20 Stop Date: 01/26/21 Status: Orderedduloxetine 60 mg oral enteric coated capsule 1 capsule, By Mouth, Daily, # 30 capsule, 0 Refills, Maintenance, 11/21/19 12:43:00 EDT, [facility] STORE 77768, 142, cm, 11/16/19 8:05:00 EDT, Height, 90.7, kg, 10/11/19 1:24:00 EDT, Dry Weight Start Date: 11/21/19 Status: OrderedDupixent 300 mg/2 mL subcutaneous solution Every 14 days, 0 Refills, Maintenance, 11/17/19 4:27:00 EDT Start Date: 11/17/19 Status: Orderedfluticasone 50 mcg/inh nasal spray 1 sprays, Nares, Both, 2 times a day, 0 Refills, Maintenance, 11/17/19 4:21:00 EDT, [place] Start Date: 11/17/19 Status: Orderedlamotrigine 25 mg [...] tablet, 0 Refills, Maintenance, 01/30/20 14:58:00 EST, [facility] STORE 51788, 143, cm, 01/14/20 22:55:00 EDT, Height, 101, [...] Refills, Maintenance, 11/04/20 23:32:00 EDT, Film, [facility]/pharmacy #[id number], Partial fill upon patient request if the prescription is for a schedule II opioid drug., 1 patch Top... Start Date: 11/04/20 Status: Orderedmagnesium oxide 400 mg (240 mg elemental magnesium) oral tablet 1 tablet, By Mouth, Daily, # 90 tablet, 3 Refills, Acute, 04/10/20 10:44:00 EST, [facility] STORE [address]432, 90, TAKE 1 TABLET BY MOUTH EVERY [...] Refills, Maintenance, 12/19/19 13:39:00 EDT, Tablet, [facility]/pharmacy #[id number], 142, cm, 12/15/19 7:46:00 EDT, [...]
--- OUTSIDE RECORDS SUMMARY | 2021-12-30 21:56 | XMS_ITS ---
:1970 Author Care Team Providers Name Role Phone [facility] Primary Care Provider [phone] Allergies Code Code System Name Reaction Severity Status Onset NKDA ? Medications Name Status Start Date Stop Date ? ? acetaminophen 325 mg tablet Active ? Not available acetazolamide 250 mg tablet Active ? Not available TAKE 2 TABLETS BY MOUTH 3 TIMES A DAY albuterol sulfate HFA 90 mcg/actuation aerosol inhaler Active ? Not available INHALE 2 PUFFS 4 TIMES A DAY NEEDED FOR WHEEZING azelastine 137 mcg (0.1 %) nasal spray aerosol Active ? Not available azithromycin 250 mg tablet Active ? Not a vailable benzonatate 100 mg capsule Active ? Not a vailable TAKE 1 CAPSULE BY MOUTH 3 TIMES A DAY X5 DAYS NEEDED FOR COU GH Breo Ellipta 200 mcg-25 mcg/dose powder for inhalation Active ? Not available bupropion HCl SR 200 mg tablet,12 hr sustained-release Active ? Not available TAKE 1 TABLET BY MOUTH TWICE A DAY bupropion HCl XL 150 mg 24 hr tablet, extended release Active ? Not available TAKE 1 TABLET BY MOUTH EVERY DAY IN THE MORNING DIRECTED [id number]-guxokogp 50 mg-300 mg-40 mg capsule Act adonay ? Not available 2 CAPSULE BY MOUTH EVERY 4 HOURS NEEDED,INSTR NOT TO EXC EED 6 CAPSULES/DAY [id number]-rkglsayvdwqce-cweglplu 50 mg-325 mg-40 mg capsule Act adonay ? Not available TAKE 1 CAPSULE BY MOUTH EVERY 4 TO 6 HOURS Spencer-Gest Antacid 200 mg calcium (500 mg) chewable tablet Active ? Not available calamine 8 %-zinc oxide 8 % lotion Active ? Not available USE NEEDED UP TO 4 TIMES A DAY cetirizine 10 mg tablet Active ? Not avai lable TAKE 1 TABLET BY MOUTH EVERY DAY cimetidine 200 mg tablet Active ? Not louann ilable TAKE 1 TABLET BY MOUTH EVERY DAY clindamycin HCl 150 mg capsule Active ? N ot available TAKE 3 CAPSULES BY MOUTH EVERY 8 HOURS FOR 5 DAYS clonazepam 1 mg tablet Active ? Not avail able TAKE 1 TABLET BY MOUTH THREE TIMES A DA Y NEEDED MAY TAKE A FOURTH DOSE IF NEEDED codeine 10 mg-guaifenesin 100 mg/5 mL oral liquid Active ? Not available TAKE 5 ML BY MOUTH EVERY 6 HOURS FOR 7 DAYS NEEDED FOR COUGH Daily Vites/Iron tablet Active ? Not avai lable TAKE 1 TABLET BY MOUTH EVERY DAY Daily-Madi tablet Active ? Not available TAKE 1 TABLET BY MOUTH EVERY DAY diclofenac 1 % topical gel Active ? Not a vailable 2 GM TOPICALLY 3 TIMES A DAY dicyclomine 10 mg capsule Active ? Not av ailable TAKE 1 CAPSULE BY MOUTH 3 TIMES A DAY NEEDED FOR ABDOMINAL C RAMPS divalproex ER 250 mg tablet,extended release 24 hr Active ? Not available TAKE 3 TABLETS BY MOUTH AT BEDTIME doxycycline hyclate 100 mg capsule Active ? Not available duloxetine 60 mg capsule,delayed release Active ? Not available TAKE 2 CAPSULES BY MOUTH EVERY MORNING DIRECTED Dupixent 300 mg/2 mL subcutaneous syringe Active ? Not available Emgality Pen 120 mg/mL subcutaneous pen injector Active ? Not available INJECT 1 DOSE SUBCUTANEOUSLY EVERY 30 DAYS. epinephrine 0.3 mg/0.3 mL injection, auto-injector Active ? Not available USE DIRECTED FOR ANAPHYLAXIS AND CALL 911 fluticasone propionate 50 mcg/actuation nasal spray,suspension A ctive ? Not available USE 1 SPRAY IN EACH NOSTRIL TWICE A DAY furosemide 20 mg tablet Active ? Not avai lable TAKE 3 TABLETS BY MOUTH TWICE A DAY hydrocodone 10 mg-chlorpheniramine 8 mg/5 mL oral susp extend.re l 12hr Active ? Not available TAKE 5 ML EVERY 12 HOURS NEEDED FOR COUGH ipratropium 0.5 mg-albuterol 3 mg (2.5 mg base)/3 mL Active ? Not available nebulization soln lamotrigine 25 mg tablet Active ? Not louann ilable TAKE 2 TABLETS BY MOUTH EVERY NIGHT DIRECTED Latuda 20 mg tablet Active ? Not availabl e TAKE 1 TABLET BY MOUTH EVERY DAY IN THE MORNING DIRECTED Latuda 40 mg tablet Active ? Not availabl e TAKE 1 TAB IN THE MORNING AND 1 TAB AT BEDTIME Latuda 80 mg tablet Active ? Not availabl e TAKE 1 TABLET BY MOUTH EVERYDAY AT BEDTIME levothyroxine 137 mcg tablet Active ? Not available TAKE 1 TABLET BY MOUTH IN THE MORNING ON AN EMPTY STOMACH magnesium citrate oral solution Active ? Not available TAKE 296 MLS BY MOUTH DAILY NEEDED FOR CONSTIPATION magnesium oxide 400 mg (241.3 mg magnesium) tablet Active ? Not available TAKE 1 TABLET BY MOUTH EVERY DAY Mapap Arthritis Pain 650 mg tablet,extended release Active ? Not available TAKE 2 TABLETS BY MOUTH EVERY 8 HOURS NEEDED meloxicam 7.5 mg tablet Active ? Not avai lable TAKE 1 TABLET BY MOUTH EVERY DAY mesalamine ER 0.375 gram capsule,extended release 24 hr Active ? Not available TAKE 4 CAPSULES BY MOUTH DAILY IN AM metoclopramide 10 mg tablet Active ? Not available TAKE 1 TABLET BY MOUTH 3 TIMES A DAY FOR 3 DAYS metolazone 2.5 mg tablet Active ? Not louann ilable TAKE 1 TABLET BY MOUTH DAILY montelukast 10 mg tablet Active ? Not louann ilable TAKE 1 TABLET BY MOUTH EVERY DAY AT BEDTIME nystatin 100,000 unit/gram topical cream Active ? Not available APPLY TO AFFECTED AREA TWICE DAILY FOR 14 DAYS nystatin 100,000 unit/mL oral suspension Active ? Not available SWISH AND SWALLOW 5 ML FOUR TIMES A DAY FOR 7 DAYS ondansetron 4 mg disintegrating tablet Active ? Not available DISSOLVE 1 TABLET IN MOUTH 3 TIMES A DA Y FOR 5 DAYS NEEDED FOR NAUSEA AND VOMITING ondansetron HCl 4 mg tablet Active ? Not available TAKE 1 TABLET BY MOUTH EVERY 8 HOURS NEEDED FOR NAUSEA/VOMIT ING Pain Relief Extra Strength 500 mg tablet Active ? Not available TAKE 2 TABLETS BY MOUTH NEEDED UP TO THREE TIMES A DAY pantoprazole 20 mg tablet,delayed release Active ? Not available TAKE 1 TABLET BY MOUTH TWICE A DAY FOR 7 DAYS potassium chloride ER 10 mEq tablet,extended release Active ? Not available prazosin 5 mg capsule Active ? Not availa ble prednisone 20 mg tablet Active ? Not avai lable prednisone 5 mg tablet Active ? Not avail able PLEASE SEE ATTACHED FOR DETAILED DIRECTIONS pregabalin 75 mg capsule Active ? Not louann ilable TAKE 1 CAPSULE BY MOUTH TWICE A DAY promethazine 25 mg rectal suppository Active ? Not available UNWRAP & INSERT 1 SUPPOSITORY RECTALLY TWICE A DAY NEEDED FOR NAUSEA AND VOMITING promethazine-DM 6.25 mg-15 mg/5 mL oral syrup Active ? Not available TAKE 5 MLS BY MOUTH EVERY 6 HOURS NEEDED FOR COUGH propranolol 20 mg tablet Active ? Not louann ilable TAKE 1 TABLET BY MOUTH TWICE A DAY quetiapine 200 mg tablet Active ? Not louann ilable TAKE 1 TABLET BY MOUTH EVERY DAY AT BEDTIME DIRECTED quetiapine 300 mg tablet Active ? Not louann ilable TAKE 1 TABLET BY MOUTH AT BEDTIME DIRECTED quetiapine 50 mg tablet Active ? Not avai lable TAKE 1 TABLET BY MOUTH EVERY MORNING AND TAKE 1 TABLET BETW EEN 3 00 & 4 00 PM sumatriptan 6 mg/0.5 mL subcutaneous pen injector Active ? Not available USE UP TO 4 INJECTIONS PER MONTH NEEDED Tab-A-Madi Multivitamin w-iron 15 mg iron-400 mcg tablet Active ? Not available TAKE 1 TABLET BY MOUTH DAILY tizanidine 2 mg capsule Active ? Not avai lable TAKE 1 CAPSULE BY MOUTH 3 TIMES A DAY NEEDED FOR MUSCLE SPAS MS torsemide 20 mg tablet Active ? Not avail able tramadol 50 mg tablet Active ? Not availa ble TAKE 1 TABLET BY MOUTH EVERY 12 HOURS FOR 3 DAYS NEEDED FOR PAIN trazodone 150 mg tablet Active ? Not avai lable TAKE 1 2 TABLETS BY MOUTH AT BEDTIME Trulance 3 mg tablet Active ? Not availab le TAKE 1 TABLET BY MOUTH EVERY DAY Vitamin D3 25 mcg (1,000 unit) tablet Active ? Not available TAKE 1 TABLET BY MOUTH DAILY Problems Name Status Onset Date Source ? Paronychia Active 06/28/2020 ? Procedures Date Name Performed by ? ? Amputation Information not norbert carpenter Notes: right footleft foot big and 2nd toe Results Lab Results None recorded. Past Encounters None recorded. Social History Tobacco Smoking Status Never Smoker Vaccine List None recorded. Plan of Care Reminders Provider Appointments None recorded. ? ? Lab None recorded. ? ? Referral None recorded. ? ? Procedures None recorded. ? ? Surgeries None recorded. ? ? Imaging None recorded. ? ? Vitals Height Weight BMI Blood Pressure 5 ft 7 in 280 lbs 43.9 kg/m2 122/64 mm[Hg]
--- OUTSIDE RECORDS SUMMARY | 2021-12-30 21:56 | XMS_ITS | Continuity of Care Document ---
:1970 Author Organization [facility] Address [address] [place] [address]- Care Team Providers Name Role Phone Fidel Sheffield MD, Mohan Primary Care Physician [place] [facility] [place] 07/[place] - 07/20/[address] [address]- [facility] Encounter Diagnosis Fall (Final) - 07/20/19 Discharge Disposition: A-D/C Home Attending Physician: Sukhdev Love DO Admitting Physician: Sukhdev Love DO Referring Physician: Not on Staff, Referring [...] Not Given Patient Refuses 1Result Comment: [05/03/2018] [id number] Comment: [05/03/2018] [id number] Note: pt stated she did not want to receive vaccine today, may want later Medications Apriso 0.375 g oral capsule, extended release 4 capsule = 1.5 Gm, By Mouth, Daily in AM, # 120 capsule, 3 Refills, Maintenance, 06/16/19 11:33:00 EDT, CR Capsule, [facility]/pharmacy #[id number], 143, cm, 06/09/19 7:23:00 EDT, [...] Refills, Soft Stop, 04/28/19 17:14:00 EST, Liquid, [facility]/pharmacy #0315, 150 mL By Mouth Once, [...] Exam Date Time Procedure Performing Provider Status 07/20/19 3:36 PM Chest Portable Karan LyndseyLuis Gill ([facility]) Notes:(Chest Portable) Reason For Exam: Shortness of BreathRESULT: Chest Portable Chest Portable Refer to EMR; Reason: Shortness of Breath; Clinical Question(s): CHF; Hx of Present Illness: Fall from sitting +LOC. Denies blood thinners COMPARISON: 06/19/2019. FINDINGS: LUNGS AND PLEURA: Low lung volumes are seen. Increased density in the left retrocardiac region is noted. The right lung is clear. Normal pulmonary vascularity. No pleural effusion or pneumothorax is seen. HEART, MEDIASTINUM AND REY: Heart is normal in size. Normal mediastinal and hilar contour. BONES AND SOFT TISSUES: Mild thoracic dextroscoliosis. IMPRESSION: Hypoinflated lungs. Increased left retrocardiac density may represent atelectasis There is no evidence of CHF. I have personally reviewed the images and I agree with this report. WSN: [id number] Ordering Physician: Kelvin Barnhart Dictated By: Oscar Haddad MD Dictated Date/Time: 07/20/19 3:44 pm Reviewed By: Julianna Torres MD Signed By: Julianna Torres MD Signed Date/Time: 07/20/19 3:49 pm Transcribed By: ANAYELI Transcribed Date/Time: 07/20/19 3:40 pm Vital Signs Most recent to oldest [Reference Range]: 1 2 Oxygen Saturation [94-100 %] 98 % 98 % (07/20/19 5:07 PM) (07/20/19 2:40 PM) Pulse Rate [55-90 bpm] 88 bpm 91 bpm (07/20/19 5:07 PM) *H* (07/20/19 2:40 PM) Blood Pressure [90-138/55-84 mm Hg] 128/86 mm Hg 107/ 60 mm Hg (07/20/19 5:07 PM) (07/20/19 2:40 PM) Respiratory Rate [16-30 br/min] 20 br/min 20 br/mi n (07/20/19 5:07 PM) (07/20/19 2:40 PM) Temperature [96.8-100.4 DegF] 97.7 DegF 98.4 DegF (07/20/19 5:07 PM) (07/20/19 2:40 PM) Liters per Minute 0 L/min (07/20/19 2:40 PM) Mode of Delivery (Oxygen) Room air Room air (07/20/19 5:07 PM) (07/20/19 2:40 PM) Blood pressure sites Arm, left (07/20/19 2:40 PM) Temperature Route Oral Oral (07/20/19 5:07 PM) (07/20/19 2:40 PM) Social History Social History Type Response Smoking Status Never smoker; Tobacco user i n household: No entered on: 10/25/14 Sex Female
--- OUTSIDE RECORDS SUMMARY | 2021-12-30 21:56 | XMS_ITS | Continuity of Care Document ---
:1970 Author Organization [facility] Address [address] [place] [address]- Care Team Providers Name Role Phone Go Schwarz MD Primary Care Physician Encounter [facility] N[facility] [id number] Date(s): 07/12/19 - 07/22/[address] [address]- [facility] Attending Physician: Vinny Cornejo Admitting [...] Not Given Patient Refuses 1Result Comment: [05/03/2018] [id number] Comment: [05/03/2018] [id number] Note: pt stated she did not want [...] Stop, 04/28/19 17:14:00 EST, Liquid, [facility]/pharmacy #0315, 150 mL By Mouth [...]
--- OUTSIDE RECORDS SUMMARY | 2021-12-30 21:56 | XMS_ITS | Continuity of Care Document ---
:1970 [address] Organization [facility] Address [address] [place] [address]- Care Team Providers Name Role Phone Edie Bee MD Primary Care Physician [phone] Encounter [facility] NBR [id number] Date(s): 07/08/21 - 08/07/[address] [facility] [place] [address] [place] [address]- Allergies, Adverse Reactions, Alerts Substance Reaction Severity Status sulfADIAZINE Rash Active droperidol Anaphylactic reaction Persistent Severe Active penicillins Rash Active Toradol1, 2 Active Keflex Rash Active Glutens rash Active 1abd upset with [id number] upset Immunizations Given and Recorded Vaccine Date [...] Not Given Patient Refuses 1Result Comment: [05/03/2018] [id number] Comment: [05/03/2018] [id number] Note: pt stated she did not want [...] 1 Refills, Maintenance, 12/23/19 16:02:00 EDT, [facility]/pharmacy #[id number], 142, cm, 12/15/19 7:46:00 EDT, Height, [...] capsule, 3 Refills, Maintenance, 09/28/20 7:41:00 EDT, [facility]/pharmacy #[id number], 143, cm, 09/20/20 19:45:00 EDT, Height, 106.6, kg, 09/20/20 19:45:00 EDT, Dry Weight Start Date: 09/28/20 Stop Date: 01/26/21 Status: Orderedduloxetine 60 mg oral enteric coated capsule 1 capsule, By Mouth, Daily, # 30 capsule, 0 Refills, Maintenance, 11/21/19 12:43:00 EDT, [facility], 142, cm, 11/16/19 8:05:00 EDT, Height, 90.7, kg, 10/11/19 1:24:00 EDT, Dry Weight Start Date: 11/21/19 Status: OrderedDupixent 300 mg/2 mL subcutaneous solution Every 14 days, 0 Refills, Maintenance, 11/17/19 4:27:00 EDT Start Date: 11/17/19 Status: Orderedfluticasone 50 mcg/inh nasal spray 1 sprays, Nares, Both, 2 times a day, 0 Refills, Maintenance, 11/17/19 4:21:00 EDT, [place] Start Date: 11/17/19 Status: OrderedImodium A-D 2 mg oral tablet 2 mg, 1, tablet, By Mouth, Every 4 hours, PRN, # 10 tablet, Refills 0, Tot. Refills 0, Maintenance, for loose stool, 07/27/21 19:52:00 EDT, Route to Pharmacy Electronically, [facility]/pharmacy #[id number], Partialfill upon patient request if the prescription is... Start Date: 07/27/21 Status: OrderedLatuda 40 mg oral tablet 1 tablet = 40 mg, By Mouth, Daily, # 30 tablet, 0 Refills, Maintenance, 11/17/19 4:22:00 EDT, Tablet Start Date: 11/17/19 Status: Orderedlevothyroxine 0.137 mg oral tablet 1 tablet, By Mouth, Daily, # 90 tablet, 0 Refills, Maintenance, 01/30/20 14:58:00 EST, [facility], 143, cm, 01/14/20 22:55:00 EDT, Height, 101, kg, 01/14/20 22:55:00 EDT, Dry Weight Start Date: 01/30/20 Status: Orderedmagnesium oxide 400 mg oral tablet 1 tablet, By Mouth, Daily, # 90 tablet, 3 Refills, [facility], 143, cm, 04/02/21 3:19:00 EST, Height, 96.2, [...] Refills, Maintenance, 04/01/21 23:03:00EST, CR Capsule, [facility]/pharmacy #[id number], Partial fill upon patient request if [...]
--- OUTSIDE RECORDS SUMMARY | 2021-12-30 21:56 | XMS_ITS | Continuity of Care Document ---
:1970 Author Organization [facility] Address [address] [place] [address]- Care Team Providers Name Role Phone Fidel Sheffield MD, Mohan Primary Care Physician [id number] Date(s): 04/04/19 - 06/02/[address] [address]- [facility] Attending Physician: Jerod Moe Admitting Physician: Jerod [...] Not Given Patient Refuses 1Result Comment: [05/03/2018] [id number] Comment: [05/03/2018] [id number] Note: pt stated she did not want [...] Refills, Maintenance, 04/19/19 13:22:00 EST, CR Capsule, [facility]/pharmacy #[id number], 142, cm, 04/15/19 9:03:00 EST, [...] capsule, 3 Refills, Maintenance, 04/19/19 13:22:00EST, Capsule, [facility]/pharmacy #0859, 142, cm, 04/15/19 9:03:00 EST, [...] 11:00:00 EDT, 04/01/19 13:49:00 EST, EC Tablet, [facility]/pharmacy #[id number], 142, cm, 04/01/19 11:22:00 EST, [...] 11:00:00 EDT, 04/01/19 13:47:00 EST, REC Powder, [facility]/pharmacy #0859, 17 Gm By Mouth Daily,Instr:dissolve [...] 06/09/19 11:00:00 EDT, 04/01/19 13:48:00 EST, Tablet, [facility]/pharmacy #0859, 2 tablet By Mouth Daily [...] Refills, Maintenance, 05/18/19 20:08:00 EST, DIS Tablet, [facility]/pharmacy #0315, 142.24, cm, 05/12/19 15:50:00 EST, Height, [...]
--- OUTSIDE RECORDS SUMMARY | 2021-12-30 21:56 | XMS_ITS | Continuity of Care Document ---
:1970 Author Organization [facility] Address [address] [facility], 3rd Floor, [address] [place] [address]- Care Team Providers Name Role Phone Abidaterry Nasima FAITH Primary Care Physician Encounter [facility] Date(s): 04/10/20 - 05/10/20 [facility] [address], [address], [address] [place] [address]- Allergies, Adverse Reactions, Alerts Substance Reaction Severity [...] Not Given Patient Refuses 1Result Comment: [05/03/2018] [id number] Comment: [05/03/2018] [id number] Note: pt stated she did not want [...] EDT, Route to Pharmacy Electronically, [facility], 142, cm, 01/06/20 8:20:00EDT, Height, 103, kg, 01/04/20 18:55:00 EDT, Dry... Start Date: 01/06/20 Status: Orderedcetirizine 10 mg oral tablet 1 tablet, By Mouth, Daily, # 90 tablet, 1 Refills, Maintenance, 12/23/19 16:02:00 EDT, [facility]/pharmacy #0859, 142, cm, 12/15/19 7:46:00 [...] Maintenance, 11/21/19 12:43:00 EDT, [facility] STORE 59162, 142, cm, 11/16/19 8:05:00 EDT, Height, 90.7, kg, 10/11/19 1:24:00 EDT, Dry Weight Start Date: 11/21/19 Status: OrderedDupixent 300 mg/2 mL subcutaneous solution 0 Refills, Maintenance, 11/17/19 4:27:00 EDT Start Date: 11/17/19 Status: Orderedfluticasone 50 mcg/inh nasal spray 1 sprays, Nares, Both, 2 times a day, 0 Refills, Maintenance, 11/17/19 4:21:00 EDT, [place] Start Date: 11/17/19 Status: Orderedlamotrigine 25 mg [...] tablet, 0 Refills, Maintenance, 01/30/20 14:58:00 EST, [facility], 143, cm, 01/14/20 22:55:00 EDT, Height, 101, kg, 01/14/20 22:55:00 EDT, Dry Weight Start Date: 01/30/20 Status: Orderedlidocaine 4% topical film 1 patch, Topically, Daily, # 30 patch, 0 Refills, Maintenance, 01/06/20 10:41:00 EDT, Film, [facility] 3, 142, cm, 01/06/20 8:20:00 EDT, Height, 103, kg, 01/04/20 18:55:00 EDT, Dry Weight Start Date: 01/06/20 Stop Date: 02/05/20 Status: Orderedmagnesium oxide 400 mg (240 mg elemental magnesium) oral tablet 1 tablet, By Mouth, Daily, # 90 tablet, 3 Refills, Acute, 04/10/20 10:44:00 EST, [facility] 296[facility], 90, TAKE 1 TABLET BY MOUTH EVERY DAY, 143, cm, 03/27/20 7:23:00 EST, Height, 101, kg, 01/14/20 22:55:00EDT, Dry Weight Start Date: 04/10/20 Status: Orderedmeloxicam 7.5 mg oral tablet 1 tablet, By Mouth, Daily, # 30 tablet, 0 Refills, Maintenance, 11/23/19 18:18:00 EDT, [facility], 142, cm, 11/16/19 8:05:00 EDT, Height, 90.7, [...] Dry Weight Start Date: 04/11/20 Status: Orderednystatin 550043 u/ml oral suspension 1 mL = 100,000 [...] Refills, Maintenance, 01/10/20 7:53:00 EDT, Capsule, [facility]/pharmacy #0859, 142, cm, 01/08/20 22:31:00 EDT, [...]
--- OUTSIDE RECORDS SUMMARY | 2021-12-30 21:56 | XMS_ITS | Continuity of Care Document ---
:1970 Author Organization [facility] Address [address] [place] [address]- Care Team Providers Name Role Phone Karishma OROZCO, Go Vargas Primary Care Physician Encounter [facility] Date(s): 11/16/19 - 11/17/[address] [address]- [facility] Encounter Diagnosis Chest pain (Final) - 11/17/19 Discharge Disposition: A-D/C Home Attending Physician: Judy Velasco MD Admitting Physician: Simon Quiñones MD Referring Physician: Not on Staff, Referring [...] Not Given Patient Refuses 1Result Comment: [05/03/2018] [id number] Comment: [05/03/2018] [id number] Note: pt stated she did not want [...] tablet = 10 mg, By Mouth, Daily, # 90 tablet, 0 Refills, Maintenance, 11/17/19 4:25:00 EDT, Tablet Start Date: 11/17/19 Status: Orderedchlorpheniramine-hydrocodone 8 mg-10 mg/5 mL oral [...] Orderedduloxetine 60 mg oral enteric coated capsule 2 capsule = 120 mg, By Mouth, Daily, do not crush or chew, # 60 capsule, 0 Refills, Maintenance, 11/17/19 4:26:00 EDT, CR Capsule Start Date: 11/17/19 Status: OrderedDupixent 300 mg/2 mL subcutaneous solution 0 Refills, Maintenance, 11/17/19 4:27:00 EDT Start Date: 11/17/19 Status: Orderedfluticasone 50 mcg/inh nasal spray 1 sprays, Nares, Both, 2 times a day, 0 Refills, Maintenance, 11/17/19 4:21:00 EDT, [place] Start Date: 11/17/19 Status: Orderedfurosemide 20 mg [...] # 30 tablet, 0 Refills, Maintenance, 11/17/19 4:27:00 EDT, Tablet Start Date: 11/17/19 Status: Orderedmontelukast 10 mg oral tablet 10 mg, 1, tablet, By Mouth, Daily in PM, # 30 tablet, Refills 0, Maintenance, 11/17/19 4:22:00 EDT Start Date: 11/17/19 Status: Orderednystatin 573052 u/ml oral suspension 1 mL = 100,000 [...] 11/17/19 4:26:00 EDT Start Date: 11/17/19 Status: OrderedtraZODone 150 [...] Exam Date Time Procedure Performing Provider Status 11/16/19 9:39 PM Chest Portable April Fiore; Jairo ([facility] ified) Notes:(Chest Portable) Reason For Exam: Shortness of BreathRESULT: Chest Portable Chest Portable Hx of Present Illness: Pt has been SOB x 1 hour. 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 States she was told to come to the ER. Pt with c o cough, chest pain and abd pain. Took tylenol with no relief; Reason: Shortness of Breath; Clinical Question(s):CHF COMPARISON: Chest CT from 11/08/2019 X-ray from 10/10/2011. FINDINGS: LINES AND TUBES: None. LUNGS AND PLEURA: Low lung volumes with mild basilar atelectasis. Lungs are otherwise clear with no consolidation. No pleural effusion. No pneumothorax. HEART, MEDIASTINUM AND REY: Heart is at upper limit of normal in size. Normal mediastinal and hilar contour. BONES AND SOFT TISSUES: No acute abnormality. IMPRESSION: No acute abnormality. Study limited by low lung volumes. WSN: [id number] Ordering Physician: Nicky Garcia Dictated By: Rajat Shelton MD Dictated Date/Time: 11/16/19 9:49 pm Reviewed By: Rajat Shelton MD Signed By: Rajat Shelton MD Signed Date/Time: 11/16/19 9:49 pm Transcribed By: ANAYELI Transcribed Date/Time: 11/16/19 9:48 pm Vital Signs Most recent to oldest 1 2 3 [Reference Range]: Oxygen Saturation [94-100 %] 96 % 100 % 98 % (11/17/19 2:56 PM) (11/17/19 12:36 PM) (11/17/19 8: 45 AM) Pulse Rate [55-90 bpm] 98 bpm 98 bpm 89 bpm *H* *H* (11/17/19 8:45 AM ) (11/17/19 2:56 PM) (11/17/19 12:36 PM) Blood Pressure [90-138/55-84 120/76 mm Hg 148/87 mm Hg 155 /91 mm Hg mm Hg] (11/17/19 2:56 PM) *H* *H* (11/17/19 12:36 PM) (11/17/19 9:40 AM) Respiratory Rate [16-30 18 br/min 16 br/min 20 br/mi n br/min] (11/17/19 2:56 PM) (11/17/19 12:36 PM) (11/17/19 10 :07 AM) Temperature [96.8-100.4 98.8 DegF 98.8 DegF 97.8 Deg F DegF] (11/17/19 2:56 PM) (11/17/19 12:36 PM) (11/17/19 8: 45 AM) Mode of Delivery (Oxygen) Room air Nasal cannula Room a ir (11/17/19 2:56 PM) (11/17/19 12:36 PM) (11/17/19 8: 45 AM) Blood pressure sites Arm, left Arm, left Arm, right (11/17/19 12:36 PM) (11/17/19 8:45 AM) (11/17/19 4: 00 AM) Temperature Route Oral Oral Oral (11/17/19 2:56 PM) (11/17/19 12:36 PM) (11/17/19 8: 45 AM) Social History Social History Type Response Smoking Status Never smoker; Tobacco user i n household: No entered on: 10/25/14 Sex
--- OUTSIDE RECORDS SUMMARY | 2021-12-30 21:56 | XMS_ITS | Continuity of Care Document ---
:1970 Author Organization [facility] Address [address] [place] [address]- Care Team Providers Name Role Phone Nasima Narayan DO Primary Care Physician Encounter [facility] Date(s): 07/06/20 - 07/07/[address] [address]- Encounter Diagnosis Abdominal pain (Final) - 07/07/20 Discharge Disposition: A-D/C Home Attending Physician: Fernando [...] Not Given Patient Refuses 1Result Comment: [05/03/2018] [id number] Comment: [05/03/2018] [id number] Note: pt stated she did not want to receive vaccine today, may want later Medications albuterol-ipratropium 3 mg-0.5 mg/3 ml inhalation solution 3 mL, Inhalation, 4 times a day, # 360 mL, 1 Refills, Maintenance, 12/13/19 8:19:00 EDT, Inhalation Solution, [facility], 3 mL Inhalation 4 times a day, 141, cm, 12/07/19 12:18:00 EDT, Height, 100.5, kg, 12/05/19 3:32:00 EDT, Dry Weight Start Date: 12/13/19 Status: OrderedAzithromycin 5 Day Dose Pack 250 mg oral tablet 1 pack/packet, By Mouth, Once, # 6 tablet, 0 Refills, Soft Stop, 06/27/20 15:07:00 EDT, Tablet, [facility]/pharmacy [...] 01/06/20 10:18:00 EDT, Route to Pharmacy Electronically, [facility], 142, cm, 01/06/20 8:20:00EDT, [...] 3 Refills, Maintenance, 06/30/20 12:45:00 EDT, [facility]/pharmacy #0859, 142, cm, 06/27/20 14:47:00 EDT, Height, 100, kg, 06/18/20 15:45:00 EDT, Dry Weight Start Date: 06/30/20 Stop Date: 10/28/20 Status: Orderedduloxetine 60 mg oral enteric coated capsule 1 capsule, By Mouth, Daily, # 30 capsule, 0 Refills, Maintenance, 11/21/19 12:43:00 EDT, [facility] ST[facility] 21236, 142, cm, 11/16/19 8:05:00 EDT, Height, 90.7, kg, 10/11/19 1:24:00 EDT, Dry Weight Start Date: 11/21/19 Status: OrderedDupixent 300 mg/2 mL subcutaneous solution 0 Refills, Maintenance, 11/17/19 4:27:00 EDT Start Date: 11/17/19 Status: Orderedfluticasone 50 mcg/inh nasal spray 1 sprays, Nares, Both, 2 times a day, 0 Refills, Maintenance, 11/17/19 4:21:00 EDT, [place] Start Date: 11/17/19 Status: Orderedlamotrigine 25 mg [...] tablet, 0 Refills, Maintenance, 01/30/20 14:58:00 EST, [facility], 143, cm, 01/14/20 22:55:00 EDT, Height, 101, kg, 01/14/20 22:55:00 EDT, Dry Weight Start Date: 01/30/20 Status: Orderedlidocaine 4% topical film 1 patch, Topically, Daily, # 30 patch, 0 Refills, Maintenance, 01/06/20 10:41:00 EDT, Film, [facility] 3, 142, cm, 01/06/20 8:20:00 EDT, Height, 103, kg, 01/04/20 18:55:00 EDT, Dry Weight Start Date: 01/06/20 Stop Date: 02/05/20 Status: Orderedmagnesium oxide 400 mg (240 mg elemental magnesium) oral tablet 1 tablet, By Mouth, Daily, # 90 tablet, 3 Refills, Acute, 04/10/20 10:44:00 EST, [facility] 435[facility], 90, TAKE 1 TABLET BY MOUTH EVERY DAY, 143, cm, 03/27/20 7:23:00 EST, Height, 101, kg, 01/14/20 22:55:00EDT, Dry Weight Start Date: 04/10/20 Status: Orderedmeloxicam 7.5 mg oral tablet 1 tablet, By Mouth, Daily, # 30 tablet, 0 Refills, Maintenance, 11/23/19 18:18:00 EDT, [facility], 142, cm, 11/16/19 8:05:00 EDT, Height, 90.7, kg, 10/11/19 1:24:00 EDT, Dry Weight Start Date: 11/23/19 Status: Orderedmontelukast 10 mg oral tablet 10 mg, 1, tablet, By Mouth, Daily in PM, # 30 tablet, Refills 0, Maintenance, 11/17/19 4:22:00 EDT Start Date: 11/17/19 Status: OrderedMorPHINE Inj 4 mg, Injection, IV Push Slowly, Every 5 minutes for 3 doses/times, PRN for Pain , Moderate, and SBPgreater than 100, Routine, 07/07/20 1:57:00 EDT, Stop date Limited # of times Start Date: 07/07/20 Stop Date: 07/07/20 Status: DiscontinuedMultivitamin Tablets Multivitamin Tablets, See Instructions, # 100 [...] 0 Refills,Maintenance, 06/08/20 22:23:00 EST, Tablet, [facility]/pharmacy [...] Range]: Oxygen Saturation [94-100 %] 96 % 93 % 96 % (07/07/20 5:19 AM) *L* (07/07/20 12:52 AM) (07/07/20 3:51 AM) Pulse Rate [55-90 bpm] 87 bpm 80 bpm 84 bpm (07/07/20 5:19 AM) (07/07/20 3:51 AM) (07/07/20 12: 52 AM) Blood Pressure [90-138/55-84 112/89 mm Hg 100/61 mm Hg 119 /66 mm Hg mm Hg] (07/07/20 5:19 AM) (07/07/20 3:51 AM) (07/07/20 12: 52 AM) Respiratory Rate [16-30 20 br/min 16 br/min 20 br/mi n br/min] (07/07/20 5:19 AM) (07/07/20 3:51 AM) (07/07/20 3:1 4 AM) Temperature [96.8-100.4 DegF] 97.8 DegF 99.2 DegF (07/07/20 3:51 AM) (07/06/20 5:51 PM) Mode of Delivery (Oxygen) Room air Room air Room a ir (07/07/20 5:19 AM) (07/07/20 3:51 AM) (07/06/20 8:40 PM) Blood pressure sites Arm, left Arm, left Arm, right (07/07/20 5:19 AM) (07/07/20 3:51 AM) (07/06/20 5:51 PM) Temperature Route Oral Oral (07/07/20 3:51 AM) (07/06/20 5:51 PM) Social History Social History Type Response Smoking Status Never (less than 100 in life time) entered on: 01/01/20 Sex
--- OUTSIDE RECORDS SUMMARY | 2021-12-30 21:56 | XMS_ITS | Continuity of Care Document ---
:1970 Author Organization [facility] Address [address] [place] [address]- Care Team Providers Name Role Phone Sylvain Nasima FAITH Primary Care Physician Encounter [facility] Date(s): 04/01/21 - 05/01/21 [facility] [address] [place] [address]- Attending Physician: Vinny Cornejo Admitting Physician: AdmVinny del valle Referring Physician: Admtr, Ar8 Allergies, Adverse Reactions, Alerts Substance Reaction Severity Status sulfADIAZINE Rash Active penicillins Rash Active Toradol Active droperidol Anaphylactic reaction Persistent Severe Active [...] Not Given Patient Refuses 1Result Comment: [05/03/2018] [id number] Comment: [05/03/2018] [id number] Note: pt stated she did not want to receive vaccine today, may want later Medications Apriso 0.375 g oral capsule, extended release 4 capsule = 1.5 Gm, By Mouth, Daily in AM, # 120 capsule, 4 Refills, Maintenance, 04/01/21 11:02:00 EST, CR Capsule, [facility], Partial fill upon patient request if the [...] Refills, Maintenance, 11/21/19 12:43:00 EDT, [facility], 142, cm, 11/16/19 8:05:00 EDT, Height, 90.7, kg, 10/11/19 1:24:00 EDT, Dry Weight Start Date: 11/21/19 Status: OrderedDupixent 300 mg/2 mL subcutaneous solution Every 14 days, 0 Refills, Maintenance, 11/17/19 4:27:00 EDT Start Date: 11/17/19 Status: Orderedfluticasone 50 mcg/inh nasal spray 1 sprays, Nares, Both, 2 times a day, 0 Refills, Maintenance, 11/17/19 4:21:00 EDT, [place] Start Date: 11/17/19 Status: OrderedLatuda 40 mg oral tablet 1 tablet = 40 mg, By Mouth, Daily, # 30 tablet, 0 Refills, Maintenance, 11/17/19 4:22:00 EDT, Tablet Start Date: 11/17/19 Status: Orderedlevothyroxine 0.137 mg oral tablet 1 tablet, By Mouth, Daily, # 90 tablet, 0 Refills, Maintenance, 01/30/20 14:58:00 EST, [facility], 143, cm, 01/14/20 22:55:00 EDT, Height, 101, kg, 01/14/20 22:55:00 EDT, Dry Weight Start Date: 01/30/20 Status: Orderedmagnesium oxide 400 mg oral tablet 1 tablet, By Mouth, Daily, # 90 tablet, 3 Refills, [facility], 143, cm, 04/02/21 3:19:00 EST, Height, 96.2, [...] 0 Refills, Maintenance, 04/01/21 23:03:00EST, CR Capsule, [facility]/pharmacy #0859, Partial fill upon patient request if [...] tablet, 0 Refills, Maintenance, 04/12/21 11:53:00 EST, [facility]/pharmacy #0859, Partial fill upon patient request if [...] tablet, 0 Refills,Maintenance, 04/01/21 23:03:00 EST, Tablet, [facility]/pharmacy #0859, Partial fill upon patient request ifthe [...]
--- OUTSIDE RECORDS SUMMARY | 2021-12-30 21:56 | XMS_ITS ---
:1970 External Reference #:[id number] Author Care Team Providers Name Role Phone [facility] Referring Provider [phone] Allergies Code Code System Name Reaction Severity Status Onset 680011 RxNorm Butrans ? ? Active ? 364 RxNorm Droperidol ? ? Active ? 20300903 RxNorm Keflex ? ? Active ? Penicillins ? ? Active ? Sulfa (Sulfonamide ? ? Active ? Antibiotics) Tree Nut ? ? Active ? Notes: reviewed w/ patient- she then s tated she was allergic to ibuprofen due to GI upset- expl is adr not true allergy. Medications Name Status Start Date Stop Date ? ? acetaminophen 325 mg tablet Active ? Not available TAKE 2 TABLETS BY MOUTH EVERY 6 HOURS NEEDED FOR MILD PAIN O R FEVER acetazolamide 250 mg tablet Active ? Not available TAKE 2 TABLETS BY MOUTH TWICE A DAY albuterol sulfate HFA 90 mcg/actuation aerosol inhaler Active ? Not available bacitracin zinc 500 unit/gram topical ointment Active ? Not available Banophen 25 mg tablet Active ? Not availa ble Belbuca 150 mcg buccal film Active ? Not available benzonatate 100 mg capsule Active ? Not a vailable TAKE 1 CAPSULE BY MOUTH 3 TIMES A DAY FOR 7 DAYS benzonatate 200 mg capsule Active ? Not a vailable TAKE 1 CAPSULE BY MOUTH 3 TIMES A DAY FOR 5 DAYS bisacodyl 10 mg rectal suppository Active ? Not available UNWRAP & INSERT 1 SUPPOSITORY RECTALLY NEEDED (EVENING AND M ORNING) buprenorphine 15 mcg/hour weekly transdermal patch Active ? Not available APPLY 1 PATCH TO SKIN ONCE WEEKLY buprenorphine 20 mcg/hour weekly transdermal patch Active ? Not available buprenorphine 5 mcg/hour weekly transdermal patch Active ? Not available APPLY 1 PATCH TO SKIN TRANSDERMALLY ONCE WEEKLY FOR 28 DAYS bupropion HCl XL 150 mg 24 hr tablet, extended release Active ? Not available capsaicin 0.1 % topical cream Active ? No t available cetirizine 10 mg tablet Active ? Not avai lable clonazepam 0.5 mg tablet Active ? Not louann ilable cyclobenzaprine 5 mg tablet Active ? Not available Daily-Madi (with folic acid) 400 mcg tablet Active ? Not available TAKE 1 TABLET BY MOUTH EVERY DAY diclofenac 1 % topical gel Active ? Not a vailable APPLY 2 GRAMS TO AFFECTED AREA 4 TIMES A DAY NEEDED 30 dicyclomine 10 mg capsule Active ? Not av ailable docusate sodium 100 mg capsule Active ? N ot available TAKE 1 CAPSULE BY MOUTH 2 TIMES A DAY NEEDED FOR CONSTIPATIO N doxycycline hyclate 100 mg capsule Active ? Not available TAKE 1 CAPSULE BY MOUTH TWICE A DAY FOR 5 DAYS doxycycline hyclate 100 mg tablet Active ? Not available doxycycline monohydrate 100 mg capsule Active ? Not available TAKE 1 CAPSULE BY MOUTH ONCE A DAY FOR 10 DAYS duloxetine 60 mg capsule,delayed release Active ? Not available Dupixent 300 mg/2 mL subcutaneous syringe Active ? Not available ferrous sulfate 325 mg (65 mg iron) tablet Active ? Not available TAKE 1 TABLET BY MOUTH EVERY DAY fluticasone propionate 50 mcg/actuation nasal Active ? Not available spray,suspension GaviLyte-G 236 gram-22.74 gram-6.74 gram-5.86 gram oral solution Active ? Not available 4000 ML GT DAILY NEEDED FOR CONSTIPATION HealthyLax 17 gram oral powder packet Active ? Not available PLEASE SEE ATTACHED FOR DETAILED DIRECTIONS hydrochlorothiazide 12.5 mg capsule Active ? Not available TAKE 1 CAPSULE BY MOUTH EVERY MORNING ibuprofen 200 mg tablet Active ? Not avai lable TAKE 2 TABLETSBY MOUTH EVERY 4 HOURS FOR 14 DAYS NEEDED FOR PAIN ketorolac 30 mg/mL (1 mL) injection solution Active ? Not available 30 mg IM x 1 s/p cmp lactulose 10 gram/15 mL oral solution Active ? Not available TAKE 15 ML BY MOUTH TWICE A DAY lamotrigine 25 mg tablet Active ? Not louann ilable Latuda 80 mg tablet Active ? Not availabl e levofloxacin 750 mg tablet Active ? Not a vailable levothyroxine 125 mcg tablet Active ? Not available loperamide 2 mg capsule Active ? Not avai lable TAKE 1 CAPSULE BY MOUTH EVERY 4 HOURS NEEDED FOR LOOSE STOOL magnesium oxide 400 (240 mg Active ? Not available magnesium oxide 400 mg (241.3 mg magnesium) tablet Active ? Not available meclizine 25 mg tablet Active ? Not avail able TAKE 1 TABLET BY MOUTH 3 TIMES A DAY FOR 7 DAYS NEEDED FOR D IZZINESS mesalamine ER 0.375 gram capsule,extended release 24 hr Active ? Not available montelukast 10 mg tablet Active ? Not louann ilable mupirocin 2 % topical ointment Active ? N ot available APPLY EXTERNALLY 3 TIMES A DAY FOR 7 DAYS Nurtec ODT 75 mg disintegrating tablet Active ? Not available 1 TABLET ON THE TONGUE AND ALLOW TO DIS SOLVE EVERY MON, WED, FRI, AND SAT. ORALLY ONCE DAILY nystatin 100,000 unit/gram topical powder Active ? Not available APPLY EXTERNALLY TWICE A DAY FOR 10 DAYS ondansetron 4 mg disintegrating tablet Active ? Not available DISSOLVE 1 TABLET ON THE TONGUE 3 TIMES A DAY NEED ED FOR NAUSEA FOR 10 DAYS ondansetron HCl 4 mg tablet Active ? Not available pantoprazole 20 mg tablet,delayed release Active ? Not available TAKE 1 TABLET BY MOUTH EVERY DAY peg-electrolyte solution 420 gram oral solution Active ? Not available DRINK 8 OUNCES EVERY 10 MINUTES potassium chloride ER 10 mEq capsule,extended release Active ? Not available TAKE 1 CAPSULE BY MOUTH TWICE A DAY FOR 7 DAYS potassium chloride ER 20 mEq tablet,extended release Active ? Not available TAKE 2 TABLETS BY MOUTH DAILY FOR 14 DAYS prazosin 5 mg capsule Active ? Not availa ble prednisone 10 mg tablet Active ? Not avai lable prednisone 20 mg tablet Active ? Not avai lable prednisone 5 mg tablet Active ? Not avail able TAKE 6 TABLETS ONCE DAILY FOR 2 DAYS. D ECREASE BY 1 TABLET EVERY OTHER DAY UNTIL FINISHED pregabalin 75 mg capsule Active ? Not louann ilable spironolactone 25 mg tablet Active ? Not available trazodone 150 mg tablet Active ? Not avai lable Trelegy Ellipta 100 mcg-62.5 mcg-25 mcg powder for Active ? Not available inhalation triamcinolone acetonide 0.1 % topical ointment Active ? Not available APPLY SKIN RASH ON ARMS TWICE A DAY FOR 7 DAYS Trulance 3 mg tablet Active ? Not availab le Tylenol Extra Strength 500 mg tablet Active ? Not available 1000 mg po stat for pain vitamin d3 1,000 iu softgel 10 Active ? N ot available TAKE 1 CAPSULE BY MOUTH EVERY DAY Vitamin D3 25 mcg (1,000 unit) tablet Active ? Not available Problems None recorded. Procedures None recorded. Results Lab Results Date Name Specimen Result Interpretation Description Value Range Status Address ? 07/06/2021 Cmp, Whole Blood + ? Bun 18 ? ? [facility] ? ? ? Ca 9.8 ? ? Main - Ins zaki: [address] [place] ? ? ? Ci- abnormal ? ? Main - I nsted: [address] [place] ? ? ? Cre 1.2 ? ? Main - Ins zaki: [address] [place] ? ? ? Glu 99 ? ? Main - Ins zaki: [address] [place] ? ? ? K+ 4.3 ? ? Main - Ins zaki: [address] [place] ? ? ? Na+ 144 ? ? Main - Ins zaki: [address] [place] Past Encounters 07/06/2021 Migraine Rama Matthews MD: [address] [place] [phone], Ph. 06/23/2021 Slurred Speech Lois Tristan MD: [address] [place] [address] [place] [phone], Ph. Social History None recorded. Vaccine List None recorded. Plan of Care Reminders Provider Appointments None recorded. ? ? Lab None recorded. ? ? Referral None recorded. ? ? Procedures None recorded. ? ? Surgeries None recorded. ? ? Imaging None recorded. ? ? Vitals 07/06/2021 07:13PM Urgent Care Weight Blood Pressure 203 lbs 134/88 mm[Hg] 06/23/2021 06:34PM Urgent Care Blood Pressure 114/80 mm[Hg]
--- OUTSIDE RECORDS SUMMARY | 2021-12-30 21:56 | XMS_ITS | Continuity of Care Document ---
:1970 Author Organization [facility] Address [address] [place] [address]- Care Team Providers Name Role Phone Fidel Sheffield MD, Mohan Primary Care Physician [phone] Encounter [facility] Date(s): 06/20/19 - 06/23/[address] [address]- [facility] Encounter Diagnosis Cough (Final) - 06/20/19 Discharge Disposition: A-D/C Home Attending Physician: Fei Chawla MD, Ezra Del Rio Admitting Physician: Joe OROZCO, Otis Albert Referring Physician: Not on Staff, Referring MD [...] Not Given Patient Refuses 1Result Comment: [05/03/2018] [id number] Comment: [05/03/2018] [id number] Note: pt stated she did not want to receive vaccine today, may want later Medications Apriso 0.375 g oral capsule, extended release 4 capsule = 1.5 Gm, By Mouth, Daily in AM, # 120 capsule, 3 Refills, Maintenance, 06/16/19 11:33:00 EDT, CR Capsule, [facility]/pharmacy #[id number], 143, cm, 06/09/19 7:23:00 EDT, Height, [...] Refills, Maintenance, 04/19/19 13:22:00EST, Capsule, [facility]/pharmacy #[id number], 142, cm, 04/15/19 9:03:00 EST, Height, [...] 04/01/19 13:49:00 EST, EC Tablet, [facility]/pharmacy #[id number], 142, cm, 04/01/19 11:22:00 EST, Height, [...] Stop, 04/28/19 17:14:00 EST, Liquid, [facility]/pharmacy #[id number], 150 mL By Mouth Once, 142, [...] Exam Date Time Procedure Performing Provider Status 06/20/19 3:04 AM Chest Portable Jennifer Peres; Jairo (Keely albert) Notes:(Chest Portable) Reason For Exam: Shortness of BreathRESULT: Chest Portable Chest Portable IMPRESSION: Subjective fever, nonproductive cough, dyspnea for 2 weeks. Currently afebrile. No leukocytosis. COMPARISON: 06/12/2019 and 06/03/2019 FINDINGS: LINES AND TUBES: None. LUNGS AND PLEURA: Low lung volumes with accentuation of bronchopulmonary markings. Mild diffuse groundglass opacities throughout the right mid to lower lung. No pleural effusion. No pneumothorax. HEART, MEDIASTINUM AND REY: Heart is normal in size. Normal mediastinal and hilar contour. BONES AND SOFT TISSUES: No acute abnormality. IMPRESSION: Hazy opacity throughout the right mid to lower lung could be due to hypoinflation versus infection. I have personally reviewed the images and I agree with this report. WSN: [id number] Ordering Physician: Fidel Gifford Dictated By: Miguel Ángel Sanchez DO Dictated Date/Time: 06/20/19 7:52 am Reviewed By: Rajat Soler MD Signed By: Rajat Soler MD Signed Date/Time: 06/20/19 7:57 am Transcribed By: ANAYELI Transcribed Date/Time: 06/20/19 3:31 am Vital Signs Most recent to oldest 1 2 3 [Reference Range]: Height 138 cm 138 cm 138 cm (06/23/19 3:09 AM) (06/22/19 8:04 PM) (06/22/19 12: 38 PM) Weight 90.9 kg 90.9 kg (06/21/19 2:01 PM) (06/20/19 8:06 PM) Oxygen Saturation [94-100 96 % 99 % 97 % %] (06/23/19 3:09 AM) (06/22/19 8:04 PM) (06/22/19 12: 38 PM) Pulse Rate [55-90 bpm] 82 bpm 93 bpm 91 bpm (06/23/19 3:09 AM) *H* *H* (06/22/19 8:04 PM) (06/22/19 12:38 PM) Body Mass Index 47.73 47.73 [18.5-24.99] *>HHI* *>HHI* (06/21/19 2:01 PM) (06/20/19 8:06 PM) Blood Pressure 105/64 mm Hg 130/89 mm Hg 132/83 mm Hg [90-138/55-84 mm Hg] (06/23/19 3:09 AM) (06/22/19 8:04 PM) ( 0 12:38 PM) Respiratory Rate [16-30 17 br/min 18 br/min 20 br/mi n br/min] (06/23/19 3:09 AM) (06/23/19 2:12 AM) (06/23/19 1:1 2 AM) Temperature [96.8-100.4 97.9 DegF 98.7 DegF 98.5 Deg F DegF] (06/23/19 3:09 AM) (06/22/19 8:04 PM) (06/22/19 12: 38 PM) Mode of Delivery (Oxygen) Room air Room air Room a ir (06/23/19 3:09 AM) (06/22/19 8:04 PM) (06/22/19 12: 38 PM) Blood pressure sites Arm, left Arm, left Arm, left (06/23/19 3:09 AM) (06/22/19 8:04 PM) (06/22/19 8:0 0 AM) Temperature Route Oral Oral Oral (06/23/19 3:09 AM) (06/22/19 8:04 PM) (06/22/19 12: 38 PM) Dry Weight 90.9 kg 90.9 kg (06/21/19 2:01 PM) (06/20/19 8:06 PM) Sensory deficits None (06/21/19 2:01 PM) Mobility assistance Ambulate, assist of 1 (06/21/19 2:01 PM) Social History Social History Type Response Smoking Status Never smoker; Tobacco user i n household: No entered on: 10/25/14 Sex Female
== END 2021-12-30 22:32 | disposition left against medical advice (07) ==
PROVIDERS: Emergency Provider Emergency Medicine
DX: R07.9 Chest pain, unspecified (principal); R06.02 Shortness of breath
CPT/HCPCS: 36415; 71045; 80048; 84484; 85025; 93005; 99283; 99284

== ENCOUNTER 2021-12-31 11:40 | Emergency (ER) | payer OTHER, SELFPAY ==
--- NOTE | 2021-12-31 | ECG_ITS ---
Test Reason : CHEST PAIN Blood Pressure : / mmHG Vent. Rate : 088 BPM Atrial Rate : 088 BPM P-R Int : 150 ms QRS Dur : 076 ms QT Int : 378 ms P-R-T Axes : 037 -14 015 degrees QTc Int : 457 ms Normal sinus rhythm Minimal voltage criteria for LVH, may be normal variant ( R in aVL ) Nonspecific ST and T wave abnormality Abnormal ECG When compared with ECG of 30-DEC-2021 19:33, No significant change was found Referred By: Generic ED Physician Electronically Signed By:KRISTIN NEGRO
[2021-12-31 11:56] VITALS: BP 139/94; PULSE 91; RESP 26; TEMP 35.9; O2SAT 97; BMI 43.0
--- NOTE | 2021-12-31 13:39 | ED_ITS ---
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 They cannot find out why she is feeling short of breath. The patient reports having chest pain sharp in nature bilateral since yesterday. She is asking for pain medications. Denies cough or fevers. She has no sputum. She denies sick contacts. She has had negative PE workups in the past. The only thing pending for her dyspnea workup is an ECHO MD complaint: chest pain Onset (ago): day(s) (2) Timing of current episode: constant Prior episodes: Yes Onset: during rest and during exertion Pain location: left chest and right chest Pain radiation: none Severity: moderate Quality: sharp Relieving factors: nothing Exacerbating factors: palpation and movement Associated symptoms: nausea, vomiting, dyspnea and other (also states she cannot urinate) Treatment prior to arrival: other (tried albuterol without relief) Related Data Previous Rx's Medication Instructions Recorded acetaminophen 500 mg tablet 1,000 mg PO QID PRN fever or pain 10/02/20 (Tylenol Extra Strength) #14 tabs ferrous sulfate 325 mg (65 mg 325 mg PO DAILY Iron deficiency 10/02/20 iron) tablet anemia #30 tabs ibuprofen 400 mg tablet 400 mg PO Q6H PRN pain #14 tabs 10/02/20 benzonatate 200 mg capsule 200 mg PO TID PRN cough #30 caps 10/31/21 doxycycline hyclate 100 mg tablet 100 mg PO BID #20 tabs 10/31/21 prednisone 20 mg tablet 40 mg PO DAILY #10 tabs 10/31/21 nitrofurantoin 100 mg PO BID 7 days #14 caps 12/15/21 monohydrate/macrocrystals 100 mg capsule (Macrobid) ondansetron 4 mg disintegrating 4 mg PO Q8H #14 tabs 12/15/21 tablet cyclobenzaprine 10 mg tablet 10 mg PO TID PRN muscle spasm #14 12/31/21 tabs lidocaine 5 % topical patch 1 patch topical DAILY #30 ea 12/31/21 Allergies Allergy/AdvReac Type Severity Reaction Status Date / Time cephalexin [From Keflex] Allergy Rash Verified 12/30/21 19:00 droperidol Allergy Anaphylaxis Verified 12/30/21 19:00 ketorolac [From Toradol] Allergy Itching Verified 12/30/21 19:00 Penicillins Allergy Rash Verified 12/30/21 19:00 Sulfa (Sulfonamide Allergy Rash Verified 12/30/21 19:00 Antibiotics) Review of Systems Review of Systems: Constitutional : No Fever, No Chills ENT/Mouth : No sore throat, No Rhinorrhea, No Swallowing Difficulty Eyes: No Eye Pain, No Swelling, No Redness Cardiovascular : No Chest Pain, positive SOB, No Orthopnea, no Edema Respiratory : No Cough, No Sputum, No Wheezing, positive dyspnea Gastrointestinal : pos Nausea, pos Vomiting, No Diarrhea, No abdominal Pain, No Hematochezia, No Melena Genitourinary : No Dysuria, No Urinary Frequency, No Hematuria, pos hesitancy Musculoskeletal : No joint pain, No Myalgias Skin : No Skin Lesions, No rash Neuro : No Weakness, No Numbness, No Dizziness, No Headache Psych : No Anxiety/Panic, No Depression Heme/Lymph: No Bruising, No Lymphadenopathy Endocrine : No Polyuria, No Polydipsia All other systems reviewed and are negative [facility] Past Medical History Attestation statement: The following information was validated with the patient. Medical History Celiac disease Colitis Left-sided weakness Surgical History History of cholecystectomy Social History Social History Alcohol intake: never Patient Tobacco Use Status: Never used Tobacco Use of substances other than those prescribed or required for medical reasons: No Advance Directives: No Advance Directives Information Provided: No Patient : No Physical Exam Vital Signs: Vital Signs: Last Vital Signs Temp 98.3 F 12/31/21 15:51 Pulse 92 12/31/21 15:51 Resp 18 12/31/21 15:51 BP 132/65 12/31/21 15:51 Pulse Ox 93 12/31/21 15:51 O2 Del Method 12/31/21 15:51 BMI result Body Mass Index 43.0 Appearance: Alert. Oriented X3. No acute distress. Eyes: Pupils equal, round and reactive to light. ENT: Pharynx normal. Neck: Normal inspection. Neck supple. CVS: Normal heart rate and rhythm. Pulses normal. Chest: ttp along wall no signs of swelling or infection reproduces pain along sternum Respiratory: No respiratory distress. Breath sounds normal. Abdomen: Soft and nontender. Skin: Skin warm and dry. Normal skin color. Normal skin turgor. Extremities: No lower extremity edema. No calf ttp Neuro: Oriented X 3. No motor deficit. No sensory deficit. Course Course Course Narrative: patient is asking for more pain medications - ddimer negative, trop negative x 2, EKG unchanged. Patient asking for pain medications on arrival to the ED, stated to RN I am not drug seeking. pain > 6 hours with negative workup. BNP negative if urine negative stable for DC plan to sign out to Frankie PA Procedures Procedure Narrative Procedure Narrative: bedside ECHO shows maybe trace pericardial effusion - no large effusion. agrees to lidocaine patch and flexeril signed out to David pending UA if negative can be DC MDM - Chest Pain MDM Narrative Medical decision making narrative: 51-year-old female with PMH of ulcerative colitis, celiac disease, hypertension, migraines, asthma, anxiety/depression here with c/o sharp chest pain for the last two days and then chronic shortness of breath x 1 month. At this time trop yesterday flat 5.9, EKG unchanged, CXR negative, will repeat trop, ddimer. Obtain fluids and give cough medications. The patient also c/o nausea/vomiting and feels like hasn't urinated - fluids and UA ordered. Seems atypical in nature. Dispo per results and findings. Lab Data Result diagrams: 12/31/21 14:15 12/31/21 14:15 Labs: Lab Results 12/31/21 12/31/21 12/31/21 Range/Units 14:14 14:15 14:15 WBC 6.5 (4.8-10.8) X10*3/uL RBC 4.26 (4.20-5.50) X10*6/uL Hgb 13.1 (12.0-16.0) g/dl Hct 40.1 (37.0-47.0) % MCV 94.1 (80.0-98.0) fL MCH 30.8 (27.0-33.0) pg MCHC 32.7 (31.0-35.0) g/dl RDW 12.6 (11.0-16.0) % Plt Count 295 (160-400) X10*3/uL MPV 10.1 (9.4-12.3) fL Immature Gran % (Auto) 1.1 H (0.0-0.4) % Neut % (Auto) 59.5 (45-73) % Lymph % (Auto) 26.2 (20-40) % Fergus % (Auto) 6.4 (2-11) % Eos % (Auto) 6.0 H (0-4) % Baso % (Auto) 0.8 (0-2) % Lymph # (Auto) 1.7 (1.2-4.9) X10*3/uL Fergus # (Auto) 0.4 (0.1-1.2) X10*3/uL Eos # (Auto) 0.4 (0.0-0.4) X10*3/uL Baso # (Auto) 0.1 (0.0-0.2) X10*3/uL Abs Immat Gran (auto) 0.07 H (0.00-0.03) X10*3/uL Absolute Neuts (auto) 3.9 (2.0-8.3) x10*3/uL Absolute Nucleated RBC 0.000 (0.0-0.012) X10*3/uL Nucleated RBC % (auto) 0.0 (0.0-0.2) /100WBC D-Dimer High Sensitivty 230 NG/ML Sodium (135-145) mmol/L Potassium (3.3-5.1) mmol/L Chloride (96-108) mmol/L Carbon Dioxide (22-29) mmol/L Anion Gap (12-20) BUN (9-16) mg/dL Creatinine (0.5-1.4) mg/dL Estim Creat Clear Calc Estimated GFR Random Glucose (60-115) mg/dL Calcium (8.4-10.2) mg/dL Magnesium (1.6-2.6) mg/dL Troponin I High Sens (<3.5-17.0) ng/L B-Natriuretic Peptide (<100) pg/mL Lipase (8-78) U/L COVID-19 (CELINA) Negative (Negative) COVID-19 Clin Com See Note 12/31/21 12/31/21 Range/Units 14:15 14:15 WBC (4.8-10.8) X10*3/uL RBC (4.20-5.50) X10*6/uL Hgb (12.0-16.0) g/dl Hct (37.0-47.0) % MCV (80.0-98.0) fL MCH (27.0-33.0) pg MCHC (31.0-35.0) g/dl RDW (11.0-16.0) % Plt Count (160-400) X10*3/uL MPV (9.4-12.3) fL Immature Gran % (Auto) (0.0-0.4) % Neut % (Auto) (45-73) % Lymph % (Auto) (20-40) % Fergus % (Auto) (2-11) % Eos % (Auto) (0-4) % Baso % (Auto) (0-2) % Lymph # (Auto) (1.2-4.9) X10*3/uL Fergus # (Auto) (0.1-1.2) X10*3/uL Eos # (Auto) (0.0-0.4) X10*3/uL Baso # (Auto) (0.0-0.2) X10*3/uL Abs Immat Gran (auto) (0.00-0.03) X10*3/uL Absolute Neuts (auto) (2.0-8.3) x10*3/uL Absolute Nucleated RBC (0.0-0.012) X10*3/uL Nucleated RBC % (auto) (0.0-0.2) /100WBC D-Dimer High Sensitivty NG/ML Sodium 141 (135-145) mmol/L Potassium 4.4 (3.3-5.1) mmol/L Chloride 105 (96-108) mmol/L Carbon Dioxide 22 (22-29) mmol/L Anion Gap 18 (12-20) BUN 16 (9-16) mg/dL Creatinine 0.98 (0.5-1.4) mg/dL Estim Creat Clear Calc 61.4 Estimated GFR > 60 Random Glucose 94 (60-115) mg/dL Calcium 9.5 (8.4-10.2) mg/dL Magnesium 2.3 (1.6-2.6) mg/dL Troponin I High Sens 6.1 (<3.5-17.0) ng/L B-Natriuretic Peptide < 10 (<100) pg/mL Lipase 13 (8-78) U/L COVID-19 (CELINA) (Negative) COVID-19 Clin Com ECG Data ECG #1: Attestation: I personally reviewed and interpreted this ECG as follows: ECG interpretation date: 12/31/21 ECG interpretation time: 13:53 Interpretation: Rate: 88 Rhythm: NSR Cantil: left , LVH Normal P waves. Normal FABIÁN. Normal QRS complex. ST T wave : inverted T waves V1-V3, no JAZMINE qTC: normal prior studies: no change from prior The study has been interpreted contemporaneously by me. . Discharge Plan Discharge Clinical Impression: Atypical chest pain Patient Disposition: Still a Patient Instructions: Chest Pain (ED) Additional Instructions: return to ED for any worsening symptoms or concerns heart tests negative over 2 days, EKG unchanged, ddimer negative kidney function tests normal please follow up with your doctor this week - no acute findings on the ED today COVID negative Prescriptions: New cyclobenzaprine 10 mg tablet 10 mg PO TID PRN (Reason: muscle spasm) Qty: 14 0RF lidocaine 5 % adhesive patch,medicated 1 patch topical DAILY Qty: 30 0RF Rx Instructions: leave on most painful area for up to 12 hrs No Action acetaminophen [Tylenol Extra Strength] 500 mg tablet 1,000 mg PO QID PRN (Reason: fever or pain) Qty: 14 0RF ibuprofen 400 mg tablet 400 mg PO Q6H PRN (Reason: pain) Qty: 14 0RF ferrous sulfate 325 mg (65 mg iron) tablet 325 mg PO DAILY Qty: 30 0RF benzonatate 200 mg capsule 200 mg PO TID PRN (Reason: cough) Qty: 30 0RF doxycycline hyclate 100 mg tablet 100 mg PO BID Qty: 20 0RF prednisone 20 mg tablet 40 mg PO DAILY Qty: 10 0RF nitrofurantoin monohyd/m-cryst [Macrobid] 100 mg capsule 100 mg PO BID 7 Days Qty: 14 0RF Rx Instructions: must administer with a meal/food ondansetron 4 mg tablet,disintegrating 4 mg PO Q8H Qty: 14 0RF Referrals: Edie Bee MD [Primary Care Provider] - 2 days
[2021-12-31 14:19] LABS: MANUAL DIFF FLAG NO
[2021-12-31 14:21] LABS: Basophils Absolute Auto 0.1 X10*3/uL (0.0-0.2); Basophils Percent Auto 0.8 % (0-2); Eosinophils Absolute Auto 0.4 X10*3/uL (0.0-0.4); Hematocrit 40.1 % (37.0-47.0); Hemoglobin 13.1 g/dl (12.0-16.0); Imm Gran Abs Auto 0.07 X10*3/uL (0.00-0.03); Imm Gran Pct Auto 1.1 % (0.0-0.4); Lymphocytes Absolute Auto 1.7 X10*3/uL (1.2-4.9); Lymphocytes Percent Auto 26.2 % (20-40); Mean Corpuscular HGB Conc 32.7 g/dl (31.0-35.0); Mean Corpuscular Hemoglobin 30.8 pg (27.0-33.0); Mean Corpuscular Volume 94.1 fL (80.0-98.0); Mean Platelet Volume 10.1 fL (9.4-12.3); Monocytes Absolute Auto 0.4 X10*3/uL (0.1-1.2); Monocytes Percent Auto 6.4 % (2-11); Neutrophils Absolute Auto 3.9 x10*3/uL (2.0-8.3); Neutrophils Percent Auto 59.5 % (45-73); Platelet Count 295 X10*3/uL (160-400); Red Blood Count 4.26 X10*6/uL (4.20-5.50); Red Cell Distribution Width 12.6 % (11.0-16.0); White Blood Count 6.5 X10*3/uL (4.8-10.8)
[2021-12-31] MEDS: HYDROcodone/Homat 5/1.5/5 ML 5 ML SYRUP PO (14:25)
[2021-12-31] MEDS: ondansetron HCL 4 MG/2 ML VIAL IVPUSH (14:26)
--- NOTE | 2021-12-31 14:27 | PC.NURSE ---
sr on monitor, skin wpd, medicated as ordered, iv placed via u/s, long #20 gauge inserted and approx 3/4-1 inch is in the vein and flushhes well, no pain, pt will inform if any pain
[2021-12-31 14:36] LABS: D Dimer High Sensitivity 230 NG/ML
[2021-12-31 14:36] LABS: COVID-19 Test Negative (Negative); IDNOW Serial# 16C4AD1C
[2021-12-31 14:41] LABS: Anion Gap 18 (12-20); Blood Urea Nitrogen 16 mg/dL (9-16); Calcium 9.5 mg/dL (8.4-10.2); Carbon Dioxide 22 mmol/L (22-29); Chloride 105 mmol/L (96-108); Creatinine Clr Calc Pharmacy 61.4; Estimated Glomerular Filt Rate > 60; Glucose Random 94 mg/dL (60-115); Lipase 13 U/L (8-78); Magnesium 2.3 mg/dL (1.6-2.6); Potassium 4.4 mmol/L (3.3-5.1); Sodium 141 mmol/L (135-145)
[2021-12-31 14:44] LABS: Troponin-I High Sensitivity 6.1 ng/L (<3.5-17.0)
[2021-12-31 15:41] LABS: B Type Natriuretic Peptide < 10 pg/mL (<100)
[2021-12-31 15:51] VITALS: BP 132/65; PULSE 92; RESP 18; TEMP 36.8; O2SAT 93
--- NOTE | 2021-12-31 15:52 | PC.NURSE ---
report obtained from [place], took care for this patient at 1530, patient a&ox3, registered nurse cardiac nsr, vss, pt offered tylenol odered for her 10?10 pain, pt states you tell that doctor that I am not drug seeking and tylenol wont help the pain I am in, and I cant keep anything down this nurse has NOT noticed the patient vomiting and was told in report she had taken PO medications prior. will notify provider of pt refusing tylenol will continue to monitor.
[2021-12-31] MEDS: Cyclobenzaprine HCl 10 MG TABLET PO (16:42)
== END 2021-12-31 16:48 | disposition home or self-care (01) ==
PROVIDERS: Emergency Provider Emergency Medicine; PCP Internal Medicine
DX: R07.89 Other chest pain (principal); R06.02 Shortness of breath; Z20.822 Contact with and (suspected) exposure to COVID-19; Z79.899 Other long term (current) drug therapy
CPT/HCPCS: 36415; 80048; 83690; 83735; 83880; 84484; 85025; 85379; 87635; 93005; 96374; 99284; 99285; J2405

== ENCOUNTER 2022-01-06 18:29 | Emergency (ER) | payer OTHER, SELFPAY ==
--- NOTE | 2022-01-06 | ECG_ITS ---
Test Reason : CHEST PAIN Blood Pressure : / mmHG Vent. Rate : 094 BPM Atrial Rate : 094 BPM P-R Int : 140 ms QRS Dur : 076 ms QT Int : 350 ms P-R-T Axes : 024 006 014 degrees QTc Int : 437 ms Normal sinus rhythm Nonspecific T wave abnormality Abnormal ECG When compared with ECG of 31-DEC-2021 12:13, No significant changes seen Referred By: Generic ED Physician Electronically Signed By:MARC AVILA MD
--- NOTE | ~2022-01-06 | XR_ITS ---
EXAMINATION: PORTABLE CHEST 1 VIEW CLINICAL INFORMATION: chest pain . COMPARISON: 12/31/2019. TECHNIQUE: Portable frontal view of the chest was obtained. FINDINGS: There is chronic asymmetric elevation the right hemidiaphragm with linear scarring or subsegmental atelectasis again seen at the right lung base. No superimposed focal infiltrate, effusion, edema, or pneumothorax. Cardiac silhouette within normal limits for size for the technique. Degenerative scoliotic changes in the spine. XR/XR chest 1V IMPRESSION: Chronic asymmetric elevation of the right hemidiaphragm with linear scarring or subsegmental atelectasis again seen at the right lung base
[2022-01-06 18:34] VITALS: BP 114/87; PULSE 98; RESP 26; TEMP 36.6; O2SAT 99; BMI 41.4
[2022-01-06 19:06] LABS: MANUAL DIFF FLAG NO
[2022-01-06 19:08] LABS: Basophils Absolute Auto 0.1 X10*3/uL (0.0-0.2); Basophils Percent Auto 1.2 % (0-2); Eosinophils Absolute Auto 0.5 X10*3/uL (0.0-0.4); Eosinophils Percent Auto 5.9 % (0-4); Hematocrit 41.6 % (37.0-47.0); Hemoglobin 13.8 g/dl (12.0-16.0); Imm Gran Abs Auto 0.05 X10*3/uL (0.00-0.03); Imm Gran Pct Auto 0.6 % (0.0-0.4); Lymphocytes Absolute Auto 2.4 X10*3/uL (1.2-4.9); Mean Corpuscular HGB Conc 33.2 g/dl (31.0-35.0); Mean Corpuscular Hemoglobin 31.2 pg (27.0-33.0); Mean Corpuscular Volume 94.1 fL (80.0-98.0); Mean Platelet Volume 9.9 fL (9.4-12.3); Monocytes Absolute Auto 0.6 X10*3/uL (0.1-1.2); Monocytes Percent Auto 7.1 % (2-11); Neutrophils Absolute Auto 4.9 x10*3/uL (2.0-8.3); Neutrophils Percent Auto 57.2 % (45-73); Platelet Count 354 X10*3/uL (160-400); Red Blood Count 4.42 X10*6/uL (4.20-5.50); Red Cell Distribution Width 12.3 % (11.0-16.0); White Blood Count 8.6 X10*3/uL (4.8-10.8)
[2022-01-06 19:22] LABS: Anion Gap 19 (12-20); Blood Urea Nitrogen 22 mg/dL (9-16); Carbon Dioxide 23 mmol/L (22-29); Chloride 103 mmol/L (96-108); Creatinine Clr Calc Pharmacy 56.5; Estimated Glomerular Filt Rate 56; Glucose Random 108 mg/dL (60-115); Sodium 141 mmol/L (135-145)
[2022-01-06 19:27] LABS: Troponin-I High Sensitivity 5.4 ng/L (<3.5-17.0)
[2022-01-06 21:10] VITALS: BP 138/106; PULSE 88; RESP 25; O2SAT 100
--- NOTE | 2022-01-06 21:38 | ED_ITS ---
HPI - Chest Pain General Chief Complaint: Chest Pain Stated Complaint: SOB, chest pain, n/v, cant move L arm Time Seen by Provider: 01/06/22 21:10 History of Present Illness HPI narrative: Patient is a 51-year-old female status post cholecystectomy positive history high cholesterol no history diabetes, hypertension, mi, family history of CT. No history of smoking. Presents today with having chest pain right upper quadrant pain. Patient claims the pain was sudden in onset since yesterday. No coughing or congestion or upper respiratory symptoms. No diaphoresis. The pain is constant. Not affected by anything. No diarrhea. Patient from home. No travel history. Related Data Previous Rx's Medication Instructions Recorded acetaminophen 500 mg tablet 1,000 mg PO QID PRN fever or pain 10/02/20 (Tylenol Extra Strength) #14 tabs ferrous sulfate 325 mg (65 mg 325 mg PO DAILY Iron deficiency 10/02/20 iron) tablet anemia #30 tabs ibuprofen 400 mg tablet 400 mg PO Q6H PRN pain #14 tabs 10/02/20 benzonatate 200 mg capsule 200 mg PO TID PRN cough #30 caps 10/31/21 doxycycline hyclate 100 mg tablet 100 mg PO BID #20 tabs 10/31/21 prednisone 20 mg tablet 40 mg PO DAILY #10 tabs 10/31/21 nitrofurantoin 100 mg PO BID 7 days #14 caps 12/15/21 monohydrate/macrocrystals 100 mg capsule (Macrobid) ondansetron 4 mg disintegrating 4 mg PO Q8H #14 tabs 12/15/21 tablet cyclobenzaprine 10 mg tablet 10 mg PO TID PRN muscle spasm #14 12/31/21 tabs lidocaine 5 % topical patch 1 patch topical DAILY #30 ea 12/31/21 Allergies Allergy/AdvReac Type Severity Reaction Status Date / Time cephalexin [From Keflex] Allergy Rash Verified 12/30/21 19:00 droperidol Allergy Anaphylaxis Verified 12/30/21 19:00 ketorolac [From Toradol] Allergy Itching Verified 12/30/21 19:00 Penicillins Allergy Rash Verified 12/30/21 19:00 Sulfa (Sulfonamide Allergy Rash Verified 12/30/21 19:00 Antibiotics) Review of Systems Review of Systems: Positive abdominal pain positive chest pain Yes all other systems are reviewed and are negative PMFSH Past Medical History Attestation statement: The following information was validated with the patient. Medical History Celiac disease Colitis Left-sided weakness Surgical History History of cholecystectomy Social History Social History Alcohol intake: never Patient Tobacco Use Status: Never used Tobacco Use of substances other than those prescribed or required for medical reasons: No Advance Directives: No Advance Directives Information Provided: No Patient : No Physical Exam Vital Signs: Vital Signs: Last Vital Signs Temp 97.8 F 01/06/22 18:34 Pulse 88 01/06/22 21:10 Resp 25 H 01/06/22 21:10 BP 138/106 H 01/06/22 21:10 Pulse Ox 100 01/06/22 21:10 O2 Del Method 01/06/22 21:10 BMI result Body Mass Index 41.4 Appearance: Alert. Oriented X3. No acute distress. Eyes: Pupils equal, round and reactive to light. ENT: Pharynx normal. Neck: Normal inspection. Neck supple. No lymph nodes noted. No crepitus CVS: Normal heart rate and rhythm. Pulses normal. Normal S1 and S2 Respiratory: No respiratory distress. Breath sounds normal. No Wheezing. No rales Abdomen: Soft and nontender. No rigidity. No distention. good BS x4 Skin: Skin warm and dry. Normal skin color. Normal skin turgor. Extremities: No lower extremity edema. Neurovascular intact to all extremities. No Lacerations. No Rash Neuro: Oriented X 3. No motor deficit. No sensory deficit. Moving all extermities. No slurred speech MDM - Chest Pain MDM Narrative Medical decision making narrative: Patient's EKG showed a sinus pattern heart rate is 100 HI QRS QT within normal limits there is no acute ST segment elevation. There is T-wave flattening diffusely noted. Patient's pain atypical however he is 51 years old 1st set enzymes are negative patient's chest pain has been fairly constant less likely ACS. History not consistent with ACS. She does have 1 cardiac risk factor along with her age. Will be follow-up on an outpatient basis. We will get s erial enzymes. When patient was informed that no additional narcotics will be given. Patient had multiple workup in the past. Patient eloped from the emergency department. Unable to do serial enzymes. Medical Records Data Attestation: I reviewed the patient's medical records. Lab Data Attestation: I reviewed the patient's lab results. Result diagrams: 01/06/22 19:02 01/06/22 19:02 Labs: Lab Results 01/06/22 01/06/22 01/06/22 Range/Units 19:02 19:02 19:02 WBC 8.6 (4.8-10.8) X10*3/uL RBC 4.42 (4.20-5.50) X10*6/uL Hgb 13.8 (12.0-16.0) g/dl Hct 41.6 (37.0-47.0) % MCV 94.1 (80.0-98.0) fL MCH 31.2 (27.0-33.0) pg MCHC 33.2 (31.0-35.0) g/dl RDW 12.3 (11.0-16.0) % Plt Count 354 (160-400) X10*3/uL MPV 9.9 (9.4-12.3) fL Immature Gran % (Auto) 0.6 H (0.0-0.4) % Neut % (Auto) 57.2 (45-73) % Lymph % (Auto) 28.0 (20-40) % [place] % (Auto) 7.1 (2-11) % Eos % (Auto) 5.9 H (0-4) % Baso % (Auto) 1.2 (0-2) % Lymph # (Auto) 2.4 (1.2-4.9) X10*3/uL [place] # (Auto) 0.6 (0.1-1.2) X10*3/uL Eos # (Auto) 0.5 H (0.0-0.4) X10*3/uL Baso # (Auto) 0.1 (0.0-0.2) X10*3/uL Abs Immat Gran (auto) 0.05 H (0.00-0.03) X10*3/uL Absolute Neuts (auto) 4.9 (2.0-8.3) x10*3/uL Absolute Nucleated RBC 0.000 (0.0-0.012) X10*3/uL Nucleated RBC % (auto) 0.0 (0.0-0.2) /100WBC Sodium 141 (135-145) mmol/L Potassium 4.0 (3.3-5.1) mmol/L Chloride 103 (96-108) mmol/L Carbon Dioxide 23 (22-29) mmol/L Anion Gap 19 (12-20) BUN 22 H (9-16) mg/dL Creatinine 1.04 (0.5-1.4) mg/dL Estim Creat Clear Calc 56.5 Estimated GFR 56 Random Glucose 108 (60-115) mg/dL Calcium 10.0 (8.4-10.2) mg/dL Total Bilirubin < 0.2 (0.0-1.0) mg/dL Direct Bilirubin < 0.2 (0.0-0.5) mg/dL AST 19 (5-31) U/L ALT 26 (0-31) U/L Alkaline Phosphatase 93 (39-117) U/L Troponin I High Sens 5.4 (<3.5-17.0) ng/L Total Protein 7.3 (6.5-8.0) g/dL Albumin 4.4 (3.5-5.0) g/dL Lipase 21 (8-78) U/L Discharge Plan Discharge Clinical Impression: Chest pain Patient Disposition: Elopement Prescriptions: No Action acetaminophen [Tylenol Extra Strength] 500 mg tablet 1,000 mg PO QID PRN (Reason: fever or pain) Qty: 14 0RF ibuprofen 400 mg tablet 400 mg PO Q6H PRN (Reason: pain) Qty: 14 0RF ferrous sulfate 325 mg (65 mg iron) tablet 325 mg PO DAILY Qty: 30 0RF benzonatate 200 mg capsule 200 mg PO TID PRN (Reason: cough) Qty: 30 0RF doxycycline hyclate 100 mg tablet 100 mg PO BID Qty: 20 0RF prednisone 20 mg tablet 40 mg PO DAILY Qty: 10 0RF nitrofurantoin monohyd/m-cryst [Macrobid] 100 mg capsule 100 mg PO BID 7 Days Qty: 14 0RF Rx Instructions: must administer with a meal/food ondansetron 4 mg tablet,disintegrating 4 mg PO Q8H Qty: 14 0RF cyclobenzaprine 10 mg tablet 10 mg PO TID PRN (Reason: muscle spasm) Qty: 14 0RF lidocaine 5 % adhesive patch,medicated 1 patch topical DAILY Qty: 30 0RF Rx Instructions: leave on most painful area for up to 12 hrs
[2022-01-06 22:18] LABS: Alanine Aminotransferase 26 U/L (0-31); Albumin Level 4.4 g/dL (3.5-5.0); Alkaline Phosphatase 93 U/L (39-117); Aspartate Amino Transferase 19 U/L (5-31); Bilirubin Direct < 0.2 mg/dL (0.0-0.5); Bilirubin Total < 0.2 mg/dL (0.0-1.0); Lipase 21 U/L (8-78); Total Protein 7.3 g/dL (6.5-8.0)
[2022-01-06] MEDS: Ondansetron ODT 4 MG TAB.RAPDIS TRANSLINGU (23:08)
[2022-01-06 23:30] LABS: Troponin-I High Sensitivity 5.4 ng/L (<3.5-17.0)
--- NOTE | 2022-01-06 23:30 | PC.NURSE ---
Pt aox4. Reports RLQ abd pain, 9/10, with nausea. Pt is anxious and reports wanting to leave but not AMA. PT advised lab results are pending. Pt agrees to stay and wait for Trop results to return. aware.
[2022-01-06 23:32] VITALS: BP 125/92; PULSE 87; RESP 18; O2SAT 96
--- NOTE | 2022-01-06 23:42 | ED_ITS ---
HPI - Chest Pain General Chief Complaint: Chest Pain Stated Complaint: SOB, chest pain, n/v, cant move L arm Time Seen by Provider: 01/06/22 21:10 Related Data Previous Rx's Medication Instructions Recorded acetaminophen 500 mg tablet 1,000 mg PO QID PRN fever or pain 10/02/20 (Tylenol Extra Strength) #14 tabs ferrous sulfate 325 mg (65 mg 325 mg PO DAILY Iron deficiency 10/02/20 iron) tablet anemia #30 tabs ibuprofen 400 mg tablet 400 mg PO Q6H PRN pain #14 tabs 10/02/20 benzonatate 200 mg capsule 200 mg PO TID PRN cough #30 caps 10/31/21 doxycycline hyclate 100 mg tablet 100 mg PO BID #20 tabs 10/31/21 prednisone 20 mg tablet 40 mg PO DAILY #10 tabs 10/31/21 nitrofurantoin 100 mg PO BID 7 days #14 caps 12/15/21 monohydrate/macrocrystals 100 mg capsule (Macrobid) ondansetron 4 mg disintegrating 4 mg PO Q8H #14 tabs 12/15/21 tablet cyclobenzaprine 10 mg tablet 10 mg PO TID PRN muscle spasm #14 12/31/21 tabs lidocaine 5 % topical patch 1 patch topical DAILY #30 ea 12/31/21 Allergies Allergy/AdvReac Type Severity Reaction Status Date / Time cephalexin [From Keflex] Allergy Rash Verified 12/30/21 19:00 droperidol Allergy Anaphylaxis Verified 12/30/21 19:00 ketorolac [From Toradol] Allergy Itching Verified 12/30/21 19:00 Penicillins Allergy Rash Verified 12/30/21 19:00 Sulfa (Sulfonamide Allergy Rash Verified 12/30/21 19:00 Antibiotics) [facility] Past Medical History Medical History Celiac disease Colitis Left-sided weakness Surgical History History of cholecystectomy Social History Social History Alcohol intake: never Patient Tobacco Use Status: Never used Tobacco Use of substances other than those prescribed or required for medical reasons: No Advance Directives: No Advance Directives Information Provided: No Patient : No Physical Exam Vital Signs: Vital Signs: Last Vital Signs Temp 97.8 F 01/06/22 18:34 Pulse 87 01/06/22 23:32 Resp 18 01/06/22 23:32 BP 125/92 H 01/06/22 23:32 Pulse Ox 96 01/06/22 23:32 O2 Del Method 01/06/22 23:32 BMI result Body Mass Index 41.4 MDM - Chest Pain MDM Narrative Medical decision making narrative: Patient's chest pain atypical. Mid chest. Ongoing. Been seen multiple times in the past for similar episodes. Two sets of cardiac enzymes were negative. Pain atypical for ACS. Will have patient follow-up on an outpatient basis. Patient LFTs also normal. No evidence for biliary disease. Lipase is normal. Chest x-ray showed no evidence of pneumonia/pneumothorax. History atypical for a PE. Will discharge patient home. Medical Records Data Attestation: I reviewed the patient's medical records. Lab Data Attestation: I reviewed the patient's lab results. Result diagrams: 01/06/22 19:02 01/06/22 19:02 Labs: Lab Results 01/06/22 01/06/22 01/06/22 Range/Units 19:02 19:02 19:02 WBC 8.6 (4.8-10.8) X10*3/uL RBC 4.42 (4.20-5.50) X10*6/uL Hgb 13.8 (12.0-16.0) g/dl Hct 41.6 (37.0-47.0) % MCV 94.1 (80.0-98.0) fL MCH 31.2 (27.0-33.0) pg MCHC 33.2 (31.0-35.0) g/dl RDW 12.3 (11.0-16.0) % Plt Count 354 (160-400) X10*3/uL MPV 9.9 (9.4-12.3) fL Immature Gran % (Auto) 0.6 H (0.0-0.4) % Neut % (Auto) 57.2 (45-73) % Lymph % (Auto) 28.0 (20-40) % [place] % (Auto) 7.1 (2-11) % Eos % (Auto) 5.9 H (0-4) % Baso % (Auto) 1.2 (0-2) % Lymph # (Auto) 2.4 (1.2-4.9) X10*3/uL [place] # (Auto) 0.6 (0.1-1.2) X10*3/uL Eos # (Auto) 0.5 H (0.0-0.4) X10*3/uL Baso # (Auto) 0.1 (0.0-0.2) X10*3/uL Abs Immat Gran (auto) 0.05 H (0.00-0.03) X10*3/uL Absolute Neuts (auto) 4.9 (2.0-8.3) x10*3/uL Absolute Nucleated RBC 0.000 (0.0-0.012) X10*3/uL Nucleated RBC % (auto) 0.0 (0.0-0.2) /100WBC Sodium 141 (135-145) mmol/L Potassium 4.0 (3.3-5.1) mmol/L Chloride 103 (96-108) mmol/L Carbon Dioxide 23 (22-29) mmol/L Anion Gap 19 (12-20) BUN 22 H (9-16) mg/dL Creatinine 1.04 (0.5-1.4) mg/dL Estim Creat Clear Calc 56.5 Estimated GFR 56 Random Glucose 108 (60-115) mg/dL Calcium 10.0 (8.4-10.2) mg/dL Total Bilirubin < 0.2 (0.0-1.0) mg/dL Direct Bilirubin < 0.2 (0.0-0.5) mg/dL AST 19 (5-31) U/L ALT 26 (0-31) U/L Alkaline Phosphatase 93 (39-117) U/L Troponin I High Sens 5.4 (<3.5-17.0) ng/L Total Protein 7.3 (6.5-8.0) g/dL Albumin 4.4 (3.5-5.0) g/dL Lipase 21 (8-78) U/L 01/06/22 Range/Units 23:06 WBC (4.8-10.8) X10*3/uL RBC (4.20-5.50) X10*6/uL Hgb (12.0-16.0) g/dl Hct (37.0-47.0) % MCV (80.0-98.0) fL MCH (27.0-33.0) pg MCHC (31.0-35.0) g/dl RDW (11.0-16.0) % Plt Count (160-400) X10*3/uL MPV (9.4-12.3) fL Immature Gran % (Auto) (0.0-0.4) % Neut % (Auto) (45-73) % Lymph % (Auto) (20-40) % [place] % (Auto) (2-11) % Eos % (Auto) (0-4) % Baso % (Auto) (0-2) % Lymph # (Auto) (1.2-4.9) X10*3/uL [place] # (Auto) (0.1-1.2) X10*3/uL Eos # (Auto) (0.0-0.4) X10*3/uL Baso # (Auto) (0.0-0.2) X10*3/uL Abs Immat Gran (auto) (0.00-0.03) X10*3/uL Absolute Neuts (auto) (2.0-8.3) x10*3/uL Absolute Nucleated RBC (0.0-0.012) X10*3/uL Nucleated RBC % (auto) (0.0-0.2) /100WBC Sodium (135-145) mmol/L Potassium (3.3-5.1) mmol/L Chloride (96-108) mmol/L Carbon Dioxide (22-29) mmol/L Anion Gap (12-20) BUN (9-16) mg/dL Creatinine (0.5-1.4) mg/dL Estim Creat Clear Calc Estimated GFR Random Glucose (60-115) mg/dL Calcium (8.4-10.2) mg/dL Total Bilirubin (0.0-1.0) mg/dL Direct Bilirubin (0.0-0.5) mg/dL AST (5-31) U/L ALT (0-31) U/L Alkaline Phosphatase (39-117) U/L Troponin I High Sens 5.4 (<3.5-17.0) ng/L Total Protein (6.5-8.0) g/dL Albumin (3.5-5.0) g/dL Lipase (8-78) U/L Discharge Plan Discharge Clinical Impression: Chest pain Patient Disposition: Home, Self-Care Instructions: Chest Pain (DC) Prescriptions: No Action acetaminophen [Tylenol Extra Strength] 500 mg tablet 1,000 mg PO QID PRN (Reason: fever or pain) Qty: 14 0RF ibuprofen 400 mg tablet 400 mg PO Q6H PRN (Reason: pain) Qty: 14 0RF ferrous sulfate 325 mg (65 mg iron) tablet 325 mg PO DAILY Qty: 30 0RF benzonatate 200 mg capsule 200 mg PO TID PRN (Reason: cough) Qty: 30 0RF doxycycline hyclate 100 mg tablet 100 mg PO BID Qty: 20 0RF prednisone 20 mg tablet 40 mg PO DAILY Qty: 10 0RF nitrofurantoin monohyd/m-cryst [Macrobid] 100 mg capsule 100 mg PO BID 7 Days Qty: 14 0RF Rx Instructions: must administer with a meal/food ondansetron 4 mg tablet,disintegrating 4 mg PO Q8H Qty: 14 0RF cyclobenzaprine 10 mg tablet 10 mg PO TID PRN (Reason: muscle spasm) Qty: 14 0RF lidocaine 5 % adhesive patch,medicated 1 patch topical DAILY Qty: 30 0RF Rx Instructions: leave on most painful area for up to 12 hrs Referrals: Edie Bee MD [Primary Care Provider] -
== END 2022-01-06 23:56 | disposition home or self-care (01) ==
PROVIDERS: Emergency Provider Emergency Medicine Emergency Medical Services; PCP Internal Medicine
DX: R07.9 Chest pain, unspecified (principal)
CPT/HCPCS: 36415; 71045; 80048; 80076; 83690; 84484; 85025; 93005; 99283; 99285

== ENCOUNTER 2022-02-21 15:49 | Emergency (ER) | payer OTHER, SELFPAY ==
--- NOTE | ~2022-02-21 | XR_ITS ---
EXAMINATION: XR CHEST CLINICAL INFORMATION: Shortness of breath COMPARISON: 01/06/2022 and selective prior TECHNIQUE: 2 views of the chest were obtained. FINDINGS: Persistent elevation of the right diaphragm. Stable overlying platelike atelectasis. Consider further evaluation with fluoroscopic assessment of the right diaphragmatic function/phrenic nerve (sniff test). Stable heart and mediastinum. No edema. Nonobstructive gas pattern. Stable severe idiopathic scoliosis. XR/XR chest 2V IMPRESSION: No acute disease. Elevation of the right diaphragm with shortness of breath. Consider sniff test.
[2022-02-21 16:01] VITALS: BP 127/84; PULSE 95; RESP 36; TEMP 36.6; O2SAT 99; BMI 37.0
--- NOTE | 2022-02-21 16:01 | ED_ITS ---
HPI - SOB/Dyspnea General Chief Complaint: Dyspnea Stated Complaint: SOB,CHEST PAIN ,ABD PAIN Time Seen by Provider: 02/21/22 16:38 Related Data Previous Rx's Medication Instructions Recorded acetaminophen 500 mg tablet 1,000 mg PO QID PRN fever or pain 10/02/20 (Tylenol Extra Strength) #14 tabs ferrous sulfate 325 mg (65 mg 325 mg PO DAILY Iron deficiency 10/02/20 iron) tablet anemia #30 tabs ibuprofen 400 mg tablet 400 mg PO Q6H PRN pain #14 tabs 10/02/20 benzonatate 200 mg capsule 200 mg PO TID PRN cough #30 caps 10/31/21 doxycycline hyclate 100 mg tablet 100 mg PO BID #20 tabs 10/31/21 prednisone 20 mg tablet 40 mg PO DAILY #10 tabs 10/31/21 nitrofurantoin 100 mg PO BID 7 days #14 caps 12/15/21 monohydrate/macrocrystals 100 mg capsule (Macrobid) ondansetron 4 mg disintegrating 4 mg PO Q8H #14 tabs 12/15/21 tablet cyclobenzaprine 10 mg tablet 10 mg PO TID PRN muscle spasm #14 12/31/21 tabs lidocaine 5 % topical patch 1 patch topical DAILY #30 ea 12/31/21 Allergies Allergy/AdvReac Type Severity Reaction Status Date / Time cephalexin [From Keflex] Allergy Rash Verified 02/21/22 16:01 droperidol Allergy Anaphylaxis Verified 02/21/22 16:01 ketorolac [From Toradol] Allergy Itching Verified 02/21/22 16:01 Penicillins Allergy Rash Verified 02/21/22 16:01 Sulfa (Sulfonamide Allergy Rash Verified 02/21/22 16:01 Antibiotics) [facility] Past Medical History Medical History Celiac disease Colitis Left-sided weakness Surgical History History of cholecystectomy Social History Social History Alcohol intake: never Patient Tobacco Use Status: Never used Tobacco Smoked in Last 30 Days: No Use of substances other than those prescribed or required for medical reasons: No Advance Directives: No Advance Directives Information Provided: No Physical Exam Vital Signs: Vital Signs: Last Vital Signs Temp 98.1 F 02/21/22 20:17 Pulse 90 02/21/22 20:17 Resp 17 02/21/22 20:17 BP 144/100 H 02/21/22 20:17 Pulse Ox 97 02/21/22 20:17 O2 Del Method 02/21/22 20:17 BMI result Body Mass Index 37.0 Course Course Course Narrative: RME: Patient is a 51-year-old female with history os asthma, migraines, celiac disease, ulcerative colitis, HTN who presents to emergency department for evaluation shortness of breath, sudden onset 2 hours ago with left anterior chest and right upper abdominal pain. Nausea with 5 episodes of bilious vomiting. Denies diarrhea, constipation, upper respiratory symptoms, cough, fevers, chills, sick contacts. PE: Tachypnea upon examination however no hypoxia significant tachycardia. She is afebrile. Lung sounds are clear bilaterally. Plan: CBC, CMP lipase, d-dimer, EKG, troponin, COVID-19 testing, influenza testing, chest x-ray Medications Administered Discontinued Medications Generic Name Dose Route Start Last Admin Trade Name Freq PRN Reason Stop Dose Admin Morphine Sulfate 15 mg 02/21/22 20:10 02/21/22 20:15 Morphine Sulfate Immed Release 15 Mg Tablet PO 02/21/22 20:11 15 mg ONCE ONE Administration Ondansetron HCl 4 mg 02/21/22 20:10 02/21/22 20:15 Ondansetron Odt 4 Mg Tab.Rapdis TRANSLINGU 02/21/22 20:11 4 mg ONCE ONE Administration MDM - SOB/Dyspnea Lab Data Result diagrams: 02/21/22 21:03 02/21/22 21:03 Labs: Lab Results 02/21/22 02/21/22 02/21/22 Range/Units 16:23 16:23 21:03 WBC 7.3 (4.8-10.8) X10*3/uL RBC 4.04 L (4.20-5.50) X10*6/uL Hgb 12.4 (12.0-16.0) g/dl Hct 37.7 (37.0-47.0) % MCV 93.3 (80.0-98.0) fL MCH 30.7 (27.0-33.0) pg MCHC 32.9 (31.0-35.0) g/dl RDW 13.1 (11.0-16.0) % Plt Count 277 (160-400) X10*3/uL MPV 10.1 (9.4-12.3) fL Immature Gran % (Auto) 0.5 H (0.0-0.4) % Neut % (Auto) 59.5 (45-73) % Lymph % (Auto) 25.3 (20-40) % [place] % (Auto) 8.4 (2-11) % Eos % (Auto) 5.6 H (0-4) % Baso % (Auto) 0.7 (0-2) % Lymph # (Auto) 1.9 (1.2-4.9) X10*3/uL [place] # (Auto) 0.6 (0.1-1.2) X10*3/uL Eos # (Auto) 0.4 (0.0-0.4) X10*3/uL Baso # (Auto) 0.1 (0.0-0.2) X10*3/uL Abs Immat Gran (auto) 0.04 H (0.00-0.03) X10*3/uL Absolute Neuts (auto) 4.3 (2.0-8.3) x10*3/uL Absolute Nucleated RBC 0.000 (0.0-0.012) X10*3/uL Nucleated RBC % (auto) 0.0 (0.0-0.2) /100WBC D-Dimer High Sensitivty NG/ML Sodium (135-145) mmol/L Potassium (3.3-5.1) mmol/L Chloride (96-108) mmol/L Carbon Dioxide (22-29) mmol/L Anion Gap (12-20) BUN (9-16) mg/dL Creatinine (0.5-1.4) mg/dL Estim Creat Clear Calc Estimated GFR Random Glucose (60-115) mg/dL Calcium (8.4-10.2) mg/dL Total Bilirubin (0.0-1.0) mg/dL AST (5-31) U/L ALT (0-31) U/L Alkaline Phosphatase (39-117) U/L Troponin I High Sens (<3.5-17.0) ng/L Total Protein (6.5-8.0) g/dL Albumin (3.5-5.0) g/dL Lipase (8-78) U/L COVID-19 (CELINA) Negative (Negative) COVID-19 Clin Com See Note Influenza Type A (PERLA) Negative (Negative) Influenza Type B (PERLA) Negative (Negative) Influenza A & B Note See Note 02/21/22 02/21/22 02/21/22 Range/Units 21:03 21:03 21:03 WBC (4.8-10.8) X10*3/uL RBC (4.20-5.50) X10*6/uL Hgb (12.0-16.0) g/dl Hct (37.0-47.0) % MCV (80.0-98.0) fL MCH (27.0-33.0) pg MCHC (31.0-35.0) g/dl RDW (11.0-16.0) % Plt Count (160-400) X10*3/uL MPV (9.4-12.3) fL Immature Gran % (Auto) (0.0-0.4) % Neut % (Auto) (45-73) % Lymph % (Auto) (20-40) % [place] % (Auto) (2-11) % Eos % (Auto) (0-4) % Baso % (Auto) (0-2) % Lymph # (Auto) (1.2-4.9) X10*3/uL [place] # (Auto) (0.1-1.2) X10*3/uL Eos # (Auto) (0.0-0.4) X10*3/uL Baso # (Auto) (0.0-0.2) X10*3/uL Abs Immat Gran (auto) (0.00-0.03) X10*3/uL Absolute Neuts (auto) (2.0-8.3) x10*3/uL Absolute Nucleated RBC (0.0-0.012) X10*3/uL Nucleated RBC % (auto) (0.0-0.2) /100WBC D-Dimer High Sensitivty 230 NG/ML Sodium 138 (135-145) mmol/L Potassium 4.0 (3.3-5.1) mmol/L Chloride 104 (96-108) mmol/L Carbon Dioxide 22 (22-29) mmol/L Anion Gap 16 (12-20) BUN 21 H (9-16) mg/dL Creatinine 1.19 (0.5-1.4) mg/dL Estim Creat Clear Calc 46.2 Estimated GFR 48 Random Glucose 91 (60-115) mg/dL Calcium 9.4 (8.4-10.2) mg/dL Total Bilirubin 0.4 (0.0-1.0) mg/dL AST 18 (5-31) U/L ALT 22 (0-31) U/L Alkaline Phosphatase 98 (39-117) U/L Troponin I High Sens 5.7 (<3.5-17.0) ng/L Total Protein 6.6 (6.5-8.0) g/dL Albumin 4.0 (3.5-5.0) g/dL Lipase 16 (8-78) U/L COVID-19 (CELINA) (Negative) COVID-19 Clin Com Influenza Type A (PERLA) (Negative) Influenza Type B (PERLA) (Negative) Influenza A & B Note Discharge Plan Discharge Clinical Impression: Chest pain, Shortness of breath, Abdominal pain Patient Disposition: Elopement Prescriptions: No Action acetaminophen [Tylenol Extra Strength] 500 mg tablet 1,000 mg PO QID PRN (Reason: fever or pain) Qty: 14 0RF ibuprofen 400 mg tablet 400 mg PO Q6H PRN (Reason: pain) Qty: 14 0RF ferrous sulfate 325 mg (65 mg iron) tablet 325 mg PO DAILY Qty: 30 0RF benzonatate 200 mg capsule 200 mg PO TID PRN (Reason: cough) Qty: 30 0RF doxycycline hyclate 100 mg tablet 100 mg PO BID Qty: 20 0RF prednisone 20 mg tablet 40 mg PO DAILY Qty: 10 0RF nitrofurantoin monohyd/m-cryst [Macrobid] 100 mg capsule 100 mg PO BID 7 Days Qty: 14 0RF Rx Instructions: must administer with a meal/food ondansetron 4 mg tablet,disintegrating 4 mg PO Q8H Qty: 14 0RF cyclobenzaprine 10 mg tablet 10 mg PO TID PRN (Reason: muscle spasm) Qty: 14 0RF lidocaine 5 % adhesive patch,medicated 1 patch topical DAILY Qty: 30 0RF Rx Instructions: leave on most painful area for up to 12 hrs
--- NOTE | 2022-02-21 16:06 | ECG_ITS ---
Test Reason : SHORT OF BREATH Blood Pressure : / mmHG Vent. Rate : 085 BPM Atrial Rate : 085 BPM P-R Int : 152 ms QRS Dur : 082 ms QT Int : 398 ms P-R-T Axes : 040 -03 018 degrees QTc Int : 473 ms Normal sinus rhythm Normal ECG When compared with ECG of 21-FEB-2022 16:07, T wave inversion less evident in Anterior leads Referred By: Gerald David Electronically Signed By:MARC AVILA MD
--- NOTE | 2022-02-21 16:39 | ED.GENADULT ---
HPI - General Adult General Chief complaint: Dyspnea Stated complaint: SOB,CHEST PAIN ,ABD PAIN Time Seen by Provider: 02/21/22 16:38 Source: patient Mode of arrival: ambulatory Limitations: no limitations History of Present Illness HPI narrative: 51-year-old female history of anxiety, depression, migraine headaches, transverse myelitis, personality disorder, PTSD, celiac disease, colitis, left-sided weakness presenting to the emergency department with complaints of sudden-onset shortness of breath, left anterior chest wall pain, right upper abdominal pain and nausea and vomiting since earlier today. Patient tells me that symptoms started at approximately 14:00 and have been in persistent ever since. She reports she has vomited 5 times, stomach contents, without blood. She reports chest pain is constant in nature, localized to the left side of her chest, described as pressure/stabbing intermittently, without radiation. Also reporting right upper abdominal pain that is intermittent in nature, colicky. Patient denies fevers, chills, chest pain, shortness of breath, diarrhea, constipation, sick contacts, headache, vision changes dizziness and weakness. Patient w/ hx of pe however not anticoagulated. Hx of cholecystectomy Related Data Previous Rx's Medication Instructions Recorded acetaminophen 500 mg tablet 1,000 mg PO QID PRN fever or pain 10/02/20 (Tylenol Extra Strength) #14 tabs ferrous sulfate 325 mg (65 mg 325 mg PO DAILY Iron deficiency 10/02/20 iron) tablet anemia #30 tabs ibuprofen 400 mg tablet 400 mg PO Q6H PRN pain #14 tabs 10/02/20 benzonatate 200 mg capsule 200 mg PO TID PRN cough #30 caps 10/31/21 doxycycline hyclate 100 mg tablet 100 mg PO BID #20 tabs 10/31/21 prednisone 20 mg tablet 40 mg PO DAILY #10 tabs 10/31/21 nitrofurantoin 100 mg PO BID 7 days #14 caps 12/15/21 monohydrate/macrocrystals 100 mg capsule (Macrobid) ondansetron 4 mg disintegrating 4 mg PO Q8H #14 tabs 12/15/21 tablet cyclobenzaprine 10 mg tablet 10 mg PO TID PRN muscle spasm #14 12/31/21 tabs lidocaine 5 % topical patch 1 patch topical DAILY #30 ea 12/31/21 Allergies Allergy/AdvReac Type Severity Reaction Status Date / Time cephalexin [From Keflex] Allergy Rash Verified 02/21/22 16:01 droperidol Allergy Anaphylaxis Verified 02/21/22 16:01 ketorolac [From Toradol] Allergy Itching Verified 02/21/22 16:01 Penicillins Allergy Rash Verified 02/21/22 16:01 Sulfa (Sulfonamide Allergy Rash Verified 02/21/22 16:01 Antibiotics) Review of Systems Review of Systems: Constitutional : No Weight loss, No Fever, No Chills, No Fatigue, No Malaise ENT/Mouth : No sore throat, No Rhinorrhea Eyes: No Eye Pain, No Swelling, No Redness Cardiovascular : + Chest Pain, + SOB, No Dyspnea on Exertion, No Orthopnea, No Edema, No Palpitations Respiratory : No Cough, No Sputum, No Wheezing Gastrointestinal : + Nausea, + Vomiting, No Diarrhea, No Constipation, No abdominal Pain, No Hematochezia, No Melena Genitourinary : No Dysuria, No Urinary Frequency, No Hematuria, Musculoskeletal : No joint pain, No Myalgias, No Joint Swelling Skin : No Skin Lesions, No rash Neuro : No Weakness, No Numbness, No Dizziness, No Headache Psych : No Anxiety/Panic, No Depression Heme/Lymph: No Bruising, No Bleeding,No Lymphadenopathy Endocrine : No Polyuria, No Polydipsia All other systems reviewed and are negative Yes all other systems are reviewed and are negative [facility] Past Medical History Attestation statement: The following information was validated with the patient. Source: old records reviewed and nursing notes reviewed Medical History Celiac disease Colitis Left-sided weakness Surgical History History of cholecystectomy Social History Social History Alcohol intake: never Patient Tobacco Use Status: Never used Tobacco Smoked in Last 30 Days: No Use of substances other than those prescribed or required for medical reasons: No Advance Directives: No Advance Directives Information Provided: No Physical Exam ED Vital Signs: Vital Signs - 24 hr 02/21/22 16:01 02/21/22 16:56 02/21/22 20:17 Temperature 97.8 F 97.7 F 98.1 F Pulse Rate 95 87 90 Respiratory Rate 36 H 29 H 17 Blood Pressure 127/84 135/95 H 144/100 H Pulse Oximetry 99 98 97 Oxygen Delivery Method Room Air Room Air Room Air BMI result Body Mass Index 37.0 Vital stable however patient noted to be tachypneic. Appearance: Alert.? Oriented X3.? No acute distress.? Head: Normocephalic, atraumatic, no step-offs or deformities Eyes: Pupils equal, round and reactive to light.? ENT: Pharynx normal.? Neck: Normal inspection.? Neck supple.? CVS: Normal heart rate and rhythm.? Pulses normal.? Respiratory: No respiratory distress.? Breath sounds normal.? Abdomen: Soft and nontender.? Skin: Skin warm and dry.? Normal skin color.? Normal skin turgor.? Extremities: No lower extremity edema.? No calf ttp, negative Tong bilaterally. 5/5 strength to bilateral upper and lower extremities Neuro: Oriented X 3.? No motor deficit.? No sensory deficit. CN 2-12 intact . Patient ambulating with steady gait normal coordination. Course Reevaluation(s) Reevaluation #1: Delay in obtaining patient labs secondary to patient being a tough stick. Multiple nursing staff, techs of tried without success. Time: 18:00 Reevaluation #2: She was given morphine, Zofran, with relief of symptoms. Patient frustrated due to wait time, explained to her that unfortunately there a lot of sick patients in the department however I will speak to nursing staff about obtaining her labs. Patient's CBC appears to be within normal limits. Chemistry hemolyzed. Will obtain new one. Troponin within normal limits, EKG nonischemic unlikely ACS. D-dimer 230, ordered a CTA to rule out PE although unlikely. COVID and flu negative. Chest x-ray with elevation of the right diaphragm was shortness of breath. Time: 21:26 Reevaluation #3: Patient supposedly left according to other patients in the department they saw her walk out. Time: 21:49 Medications Administered Discontinued Medications Generic Name Dose Route Start Last Admin Trade Name Freq PRN Reason Stop Dose Admin Morphine Sulfate 15 mg 02/21/22 20:10 02/21/22 20:15 Morphine Sulfate Immed Release 15 Mg Tablet PO 02/21/22 20:11 15 mg ONCE ONE Administration Ondansetron HCl 4 mg 02/21/22 20:10 02/21/22 20:15 Ondansetron Odt 4 Mg Tab.Carolyndis TRANSLINGU 02/21/22 20:11 4 mg ONCE ONE Administration Medical Decision Making [facility] Narrative Medical decision making narrative: 1640 51-year-old female presenting with chest pain, shortness of breath, nausea, vomiting and abdominal pain since 14:00. Sudden in onset Physical examination benign, no abd tenderness to palpation. Likely viral in origin. Unlikely ACS, PE, CHF. No signs of acute abdomen on exam. Plan at this time is labs, imaging, urine. Medical Records Medical records reviewed: Yes I reviewed the patient's medical records. Lab Data Lab results reviewed: Yes I reviewed the patient's lab results. Result diagrams: 02/21/22 21:03 02/21/22 21:03 Labs: Lab Results 02/21/22 02/21/22 02/21/22 Range/Units 16:23 16:23 21:03 WBC 7.3 (4.8-10.8) X10*3/uL RBC 4.04 L (4.20-5.50) X10*6/uL Hgb 12.4 (12.0-16.0) g/dl Hct 37.7 (37.0-47.0) % MCV 93.3 (80.0-98.0) fL MCH 30.7 (27.0-33.0) pg MCHC 32.9 (31.0-35.0) g/dl RDW 13.1 (11.0-16.0) % Plt Count 277 (160-400) X10*3/uL MPV 10.1 (9.4-12.3) fL Immature Gran % (Auto) 0.5 H (0.0-0.4) % Neut % (Auto) 59.5 (45-73) % Lymph % (Auto) 25.3 (20-40) % Platte % (Auto) 8.4 (2-11) % Eos % (Auto) 5.6 H (0-4) % Baso % (Auto) 0.7 (0-2) % Lymph # (Auto) 1.9 (1.2-4.9) X10*3/uL Platte # (Auto) 0.6 (0.1-1.2) X10*3/uL Eos # (Auto) 0.4 (0.0-0.4) X10*3/uL Baso # (Auto) 0.1 (0.0-0.2) X10*3/uL Abs Immat Gran (auto) 0.04 H (0.00-0.03) X10*3/uL Absolute Neuts (auto) 4.3 (2.0-8.3) x10*3/uL Absolute Nucleated RBC 0.000 (0.0-0.012) X10*3/uL Nucleated RBC % (auto) 0.0 (0.0-0.2) /100WBC D-Dimer High Sensitivty NG/ML Troponin I High Sens (<3.5-17.0) ng/L COVID-19 (CELINA) Negative (Negative) COVID-19 Clin Com See Note Influenza Type A (PERLA) Negative (Negative) Influenza Type B (PERLA) Negative (Negative) Influenza A & B Note See Note 02/21/22 02/21/22 Range/Units 21:03 21:03 WBC (4.8-10.8) X10*3/uL RBC (4.20-5.50) X10*6/uL Hgb (12.0-16.0) g/dl Hct (37.0-47.0) % MCV (80.0-98.0) fL MCH (27.0-33.0) pg MCHC (31.0-35.0) g/dl RDW (11.0-16.0) % Plt Count (160-400) X10*3/uL MPV (9.4-12.3) fL Immature Gran % (Auto) (0.0-0.4) % Neut % (Auto) (45-73) % Lymph % (Auto) (20-40) % Platte % (Auto) (2-11) % Eos % (Auto) (0-4) % Baso % (Auto) (0-2) % Lymph # (Auto) (1.2-4.9) X10*3/uL Platte # (Auto) (0.1-1.2) X10*3/uL Eos # (Auto) (0.0-0.4) X10*3/uL Baso # (Auto) (0.0-0.2) X10*3/uL Abs Immat Gran (auto) (0.00-0.03) X10*3/uL Absolute Neuts (auto) (2.0-8.3) x10*3/uL Absolute Nucleated RBC (0.0-0.012) X10*3/uL Nucleated RBC % (auto) (0.0-0.2) /100WBC D-Dimer High Sensitivty 230 NG/ML Troponin I High Sens 5.7 (<3.5-17.0) ng/L COVID-19 (CELINA) (Negative) COVID-19 Clin Com Influenza Type A (PERLA) (Negative) Influenza Type B (PERLA) (Negative) Influenza A & B Note Critical Care Time Critical Care Time Critical Care Time: No Discharge Plan Discharge Clinical Impression: Chest pain, Shortness of breath, Abdominal pain Patient Disposition: Elopement Prescriptions: No Action acetaminophen [Tylenol Extra Strength] 500 mg tablet 1,000 mg PO QID PRN (Reason: fever or pain) Qty: 14 0RF ibuprofen 400 mg tablet 400 mg PO Q6H PRN (Reason: pain) Qty: 14 0RF ferrous sulfate 325 mg (65 mg iron) tablet 325 mg PO DAILY Qty: 30 0RF benzonatate 200 mg capsule 200 mg PO TID PRN (Reason: cough) Qty: 30 0RF doxycycline hyclate 100 mg tablet 100 mg PO BID Qty: 20 0RF prednisone 20 mg tablet 40 mg PO DAILY Qty: 10 0RF nitrofurantoin monohyd/m-cryst [Macrobid] 100 mg capsule 100 mg PO BID 7 Days Qty: 14 0RF Rx Instructions: must administer with a meal/food ondansetron 4 mg tablet,disintegrating 4 mg PO Q8H Qty: 14 0RF cyclobenzaprine 10 mg tablet 10 mg PO TID PRN (Reason: muscle spasm) Qty: 14 0RF lidocaine 5 % adhesive patch,medicated 1 patch topical DAILY Qty: 30 0RF Rx Instructions: leave on most painful area for up to 12 hrs
[2022-02-21 16:43] LABS: COVID-19 Test Negative (Negative); IDNOW Serial# 16C4AD1C; IDNOW Serial# BCCEAD1C; Influenza A Negative (Negative); Influenza B2 Negative (Negative)
[2022-02-21 16:56] VITALS: BP 135/95; PULSE 87; RESP 29; TEMP 36.5; O2SAT 98
--- NOTE | 2022-02-21 17:39 | PC.NURSE ---
Patient difficult IV start. Provider notified. Patient states usually needs ultrasound to start IV lines on her
[2022-02-21] MEDS: Ondansetron ODT 4 MG TAB.RAPDIS TRANSLINGU (20:15)
[2022-02-21] MEDS: Morphine Sulfate Immed Release 15 MG TABLET PO (20:15)
--- NOTE | 2022-02-21 20:16 | PC.NURSE ---
CARE assumed at 1900. awaiting US-guided IV by provider to obtain labs per nursing report. TAYLOR givens.
[2022-02-21 20:17] VITALS: BP 144/100; PULSE 90; RESP 17; TEMP 36.7; O2SAT 97
--- NOTE | 2022-02-21 20:26 | PC.NURSE ---
Assumed care of patient.
--- NOTE | 2022-02-21 20:32 | PC.NURSE ---
Patient c/o SOB and R flank pain. Patient's O2 is at 96% RA, HR 87, no apparent respiratory distress. Patient has yet to provide a urine specimen as she does not have the sensation to go . Will continue to monitor.
[2022-02-21 21:12] LABS: MANUAL DIFF FLAG NO
[2022-02-21 21:19] LABS: D Dimer High Sensitivity 230 NG/ML
[2022-02-21 21:30] LABS: Basophils Absolute Auto 0.1 X10*3/uL (0.0-0.2); Basophils Percent Auto 0.7 % (0-2); Eosinophils Absolute Auto 0.4 X10*3/uL (0.0-0.4); Eosinophils Percent Auto 5.6 % (0-4); Hematocrit 37.7 % (37.0-47.0); Hemoglobin 12.4 g/dl (12.0-16.0); Imm Gran Abs Auto 0.04 X10*3/uL (0.00-0.03); Imm Gran Pct Auto 0.5 % (0.0-0.4); Lymphocytes Absolute Auto 1.9 X10*3/uL (1.2-4.9); Lymphocytes Percent Auto 25.3 % (20-40); Mean Corpuscular HGB Conc 32.9 g/dl (31.0-35.0); Mean Corpuscular Hemoglobin 30.7 pg (27.0-33.0); Mean Corpuscular Volume 93.3 fL (80.0-98.0); Mean Platelet Volume 10.1 fL (9.4-12.3); Monocytes Absolute Auto 0.6 X10*3/uL (0.1-1.2); Monocytes Percent Auto 8.4 % (2-11); Neutrophils Absolute Auto 4.3 x10*3/uL (2.0-8.3); Neutrophils Percent Auto 59.5 % (45-73); Platelet Count 277 X10*3/uL (160-400); Red Blood Count 4.04 X10*6/uL (4.20-5.50); Red Cell Distribution Width 13.1 % (11.0-16.0); White Blood Count 7.3 X10*3/uL (4.8-10.8)
[2022-02-21 21:33] LABS: Troponin-I High Sensitivity 5.7 ng/L (<3.5-17.0)
--- NOTE | 2022-02-21 21:40 | PC.NURSE ---
Upon entering patient's room, she is nowhere to be found and all belongings are gone. Patient had been stating she was going to leave since approximately 7pm to spend the night with her dogs. TAYLOR Hill made aware.
[2022-02-21 21:49] LABS: Alanine Aminotransferase 22 U/L (0-31); Alkaline Phosphatase 98 U/L (39-117); Anion Gap 16 (12-20); Aspartate Amino Transferase 18 U/L (5-31); Bilirubin Total 0.4 mg/dL (0.0-1.0); Blood Urea Nitrogen 21 mg/dL (9-16); Calcium 9.4 mg/dL (8.4-10.2); Carbon Dioxide 22 mmol/L (22-29); Chloride 104 mmol/L (96-108); Creatinine Clr Calc Pharmacy 46.2; Estimated Glomerular Filt Rate 48; Glucose Random 91 mg/dL (60-115); Lipase 16 U/L (8-78); Sodium 138 mmol/L (135-145); Total Protein 6.6 g/dL (6.5-8.0)
== END 2022-02-21 21:40 | disposition left against medical advice (07) ==
PROVIDERS: Nurse Practitioner Family; Emergency Provider Emergency Medicine; PCP Internal Medicine
DX: R07.9 Chest pain, unspecified (principal); R10.9 Unspecified abdominal pain; R06.02 Shortness of breath; Z20.822 Contact with and (suspected) exposure to COVID-19
CPT/HCPCS: 36415; 71046; 80053; 83690; 84484; 85025; 85379; 87502; 87635; 93005; 99283; 99285

== ENCOUNTER 2022-02-28 16:39 | Emergency (ER) | payer OTHER, SELFPAY ==
--- NOTE | ~2022-02-28 | XR_ITS ---
EXAMINATION: XR CHEST CLINICAL INFORMATION: Shortness of breath and chest pain COMPARISON: Chest x-ray 02/21/2022 TECHNIQUE: 2 views of the chest were obtained. FINDINGS: Elevation/eventration the right hemidiaphragm with platelike atelectasis at the right lung base similar to prior. No airspace consolidation. No pleural effusion or pneumothorax. Normal cardiomediastinal silhouette and pulmonary vascularity. No acute osseous injury identified. S-shaped scoliotic curvature the thoracolumbar spine. Cholecystectomy clips project in the right upper quadrant. XR/XR chest 2V IMPRESSION: 1. No acute pulmonary process. 2. Unchanged elevation/eventration of the right hemidiaphragm with mild right basilar atelectasis.
[2022-02-28 16:44] VITALS: BP 115/84; PULSE 87; RESP 18; TEMP 36.9; O2SAT 98; BMI 38.1
--- NOTE | 2022-02-28 16:44 | ECG_ITS ---
Test Reason : CHEST PAIN Blood Pressure : / mmHG Vent. Rate : 086 BPM Atrial Rate : 086 BPM P-R Int : 144 ms QRS Dur : 082 ms QT Int : 376 ms P-R-T Axes : 012 -08 014 degrees QTc Int : 449 ms Normal sinus rhythm Normal ECG When compared with ECG of 21-FEB-2022 17:19, No significant change was found Referred By: Nydia Duran Electronically Signed By:Elpidio So
--- NOTE | 2022-02-28 16:44 | ED_ITS ---
HPI - General Adult General Chief complaint: Dyspnea Stated complaint: SOB, chest pain, abdominal pain Time Seen by Provider: 02/28/22 18:50 Source: patient Mode of arrival: ambulatory Limitations: no limitations History of Present Illness HPI narrative: Patient is a 51 year old assigned female at with a history of migraine, PTSD, colitis, anxiety, and depression presenting to the emergency department today with chest pain and epigastric pain. Patient states that she has been having shortness of breath, chest pain, and epigastric pain. Patient states that she was told her d-dimer was elevated on her last visit but she left before being seen. Patient denies any dizziness, lightheadedness, nausea, vomiting, fever, chills, blurry vision, double vision, loss of vision, back pain, night sweats, pain with urination, increased urinary frequency, increased urinary urgency, blood in her urine or stool, syncope or a near syncopal episode, recent trauma or falls, bowel incontinence, bladder incontinence, bowel retention, bladder retention, or any other complaints at this time. Onset (ago): hour(s) (2) Location: chest and abdomen Severity: mild Severity scale (1-10): 3 Quality: dull Relieving factors: none Exacerbating factors: none Treatments prior to arrival: none Related Data Previous Rx's Medication Instructions Recorded acetaminophen 500 mg tablet 1,000 mg PO QID PRN fever or pain 10/02/20 (Tylenol Extra Strength) #14 tabs ferrous sulfate 325 mg (65 mg 325 mg PO DAILY Iron deficiency 10/02/20 iron) tablet anemia #30 tabs ibuprofen 400 mg tablet 400 mg PO Q6H PRN pain #14 tabs 10/02/20 benzonatate 200 mg capsule 200 mg PO TID PRN cough #30 caps 10/31/21 doxycycline hyclate 100 mg tablet 100 mg PO BID #20 tabs 10/31/21 prednisone 20 mg tablet 40 mg PO DAILY #10 tabs 10/31/21 nitrofurantoin 100 mg PO BID 7 days #14 caps 12/15/21 monohydrate/macrocrystals 100 mg capsule (Macrobid) ondansetron 4 mg disintegrating 4 mg PO Q8H #14 tabs 12/15/21 tablet cyclobenzaprine 10 mg tablet 10 mg PO TID PRN muscle spasm #14 12/31/21 tabs lidocaine 5 % topical patch 1 patch topical DAILY #30 ea 12/31/21 Allergies Allergy/AdvReac Type Severity Reaction Status Date / Time cephalexin [From Keflex] Allergy Rash Verified 02/21/22 16:01 droperidol Allergy Anaphylaxis Verified 02/21/22 16:01 ketorolac [From Toradol] Allergy Itching Verified 02/21/22 16:01 Penicillins Allergy Rash Verified 02/21/22 16:01 Sulfa (Sulfonamide Allergy Rash Verified 02/21/22 16:01 Antibiotics) Review of Systems Constitutional: Constitutional: Reports no additional constitutional complaints, Denies chills, Denies fever(s) and Denies night sweats Eyes: Eyes: Reports no additional eye complaints, Denies blurry vision, Denies change in vision, Denies diplopia, Denies eye discharge, Denies loss of vision and Denies eye pain ENT: Denies dizziness Cardiovascular: Cardiovascular: Reports no additional cardiovascular complai nts, Reports chest pain, Denies lightheadedness, Denies Loss of Consciousness and Reports dyspnea Respiratory: Respiratory: Reports no additional respiratory complaints and Reports dyspnea Gastrointestinal: Gastrointestinal: Reports no additional gastrointestinal complaints, Reports abdominal pain, Denies melena, Denies hematochezia, Denies change in bowel habits and Denies change in stool character Genitourinary: Genitourinary: Denies hematuria, Denies urinary frequency, Denies dysuria, Denies urinary incontinence, Denies urinary hesitancy and Denies urinary urgency Musculoskeletal: Musculoskeletal: Reports no additional musculoskeletal complaints, Denies numbness and Denies tingling Neurologic: Denies dizziness, Denies loss of vision, Denies numbness and Denies tingling Psychiatric: Psychiatric: Reports no additional psychiatric complaints Endocrine: Endocrine: Reports no additional endocrine complaints Hematologic/Lymphatic: Hematologic/Lymphatic: Reports no additional hemat ologic/lymphatic complaints Allergic/Immunologic: Allergic/Immunologic: Reports no additional allergic/immunologic complaints FOR[facility]LY [facility] Past Medical History Attestation statement: The following information was validated with the patient. Source: old records reviewed Medical History Celiac disease Colitis Left-sided weakness Surgical History History of cholecystectomy Social History Social History Alcohol intake: never Patient Tobacco Use Status: Never used Tobacco Advance Directives: No Advance Directives Information Provided: No Physical Exam ED Vital Signs: Vital Signs - 24 hr 02/28/22 16:44 Temperature 98.4 F Pulse Rate 87 Respiratory Rate 18 Blood Pressure 115/84 Pulse Oximetry 98 Oxygen Delivery Method Room Air BMI result Body Mass Index 38.1 Const General: cooperative, no acute distress, alert and awake Nutritional Appearance: well nourished Orientation/consciousness: patient oriented x3 Limitations: no limitations HENMT Head: Yes normal to inspection and Yes atraumatic Ears: hearing grossly normal bilaterally and external ears normal General nose exam: Normal external nose present, no nasal discharge noted and no epistaxis Face and sinus: Yes normal facial exam, No abrasion and No laceration Mouth: Normal oral and palatal mucosa present, no drooling and no muffled voice Eyes General: appearance normal, both eyes and all related structures Periorbital: periorbital findings normal Eyelids: Yes eyelids normal Conjunctivae: conjunctivae normal Pupils: Equal, round and reactive pupils present EOM: EOMs intact bilaterally Neck Neck: Yes normal visual inspection, Yes full ROM and Yes no lymphadenopathy Chest Chest palpation & inspection: normal inspection of the chest Resp Effort & Inspection: normal respiratory effort and able to speak in complete sentences Auscultation: clear to auscultation bilaterally Cardio Rate: regular rate Rhythm: regular rhythm GI Inspection: Yes normal to inspection Palpation (GI): Soft to palpation, nontender, no guarding and not rigid Neuro General: patient oriented x3 and moves all extremities Cranial nerves: Yes Equal, round and reactive pupils present Cognition (Neuro): normal cognition Motor exam (neuro): 5/5 motor strength present throughout Sensory Exam: Normal double simultaneous stimulation for sensation Coordination: [id number] test normal Extrem General: Yes normal to inspection, Yes full ROM and Yes capillary refill normal Psych Appearance: grossly normal Mental Status: mental status grossly normal Affect: normal affect Attitude: cooperative Thought process: Normal thought process present Thought content: Normal thought content present Insight: Good insight present (Psych) Course Course Course Narrative: RME performed by Nydia Duran PA-C. Patient is a 51 year old female presenting to the emergency department with chest pain and SOB starting approximately 1 hour ago at 1545. CBC, CMP, Troponin, CXR, EKG, COVID/RSV/Influenza swab ordered. Patient placed back in the waiting room p ending results and bed availability. Medical Decision Making MDM Narrative Medical decision making narrative: Patient is a 51 year old assigned female at with a history of PTSD, anx iety, depression, colitis, and migraines presenting to the emergency department today with chest pain, shortness of breath, and epigastric pain. Patient's physical exam was unremarkable. Patient's blood work was unremarkable. Patient's EKG was unremarkable. Patient's chest x-ray showed no acute process. Patients previous visit showed a d-dimer of 230 which is considered the cut off but does rule out VTE. Patient is not presently tachycardic or hypoxic. I explained my physical exam findings as well as all test results to the patient. I answered all questions asked by the patient. I stressed the importance of the patient taking her medication as prescribed. I stressed the importance of the patient following up with her primary care provider. I stressed the importance of the patient returning to the emergency department immediately if her symptoms were to worsen or if she were to develop any dizziness, shortness of breath, difficulty breathing, chest pain, blurry vision, loss of vision, nausea, vomiting, abdominal pain, fever, chills, back pain, or any other complaints. Patient verbalized agreement and understanding with this treatment plan and discharge. Medical Records Medical records reviewed: Yes I reviewed the patient's medical records. Lab Data Lab results reviewed: Yes I reviewed the patient's lab results. Result diagrams: 02/28/22 17:45 02/28/22 17:45 Labs: Lab Results 02/28/22 02/28/22 02/28/22 Range/Units 17:45 17:45 17:45 WBC 6.8 (4.8-10.8) X10*3/uL RBC 4.17 L (4.20-5.50) X10*6/uL Hgb 12.8 (12.0-16.0) g/dl Hct 39.1 (37.0-47.0) % MCV 93.8 (80.0-98.0) fL MCH 30.7 (27.0-33.0) pg MCHC 32.7 (31.0-35.0) g/dl RDW 12.9 (11.0-16.0) % Plt Count 331 (160-400) X10*3/uL MPV 10.2 (9.4-12.3) fL Immature Gran % (Auto) 0.6 H (0.0-0.4) % Neut % (Auto) 57.9 (45-73) % Lymph % (Auto) 27.8 (20-40) % Kidder % (Auto) 7.2 (2-11) % Eos % (Auto) 5.6 H (0-4) % Baso % (Auto) 0.9 (0-2) % Lymph # (Auto) 1.9 (1.2-4.9) X10*3/uL Kidder # (Auto) 0.5 (0.1-1.2) X10*3/uL Eos # (Auto) 0.4 (0.0-0.4) X10*3/uL Baso # (Auto) 0.1 (0.0-0.2) X10*3/uL Abs Immat Gran (auto) 0.04 H (0.00-0.03) X10*3/uL Absolute Neuts (auto) 3.9 (2.0-8.3) x10*3/uL Absolute Nucleated RBC 0.000 (0.0-0.012) X10*3/uL Nucleated RBC % (auto) 0.0 (0.0-0.2) /100WBC Sodium 135 (135-145) mmol/L Potassium 4.0 (3.3-5.1) mmol/L Chloride 101 (96-108) mmol/L Carbon Dioxide 24 (22-29) mmol/L Anion Gap 14 (12-20) BUN 19 H (9-16) mg/dL Creatinine 1.26 (0.5-1.4) mg/dL Estim Creat Clear Calc 44.4 Estimated GFR 45 Random Glucose 87 (60-115) mg/dL Calcium 9.8 (8.4-10.2) mg/dL Magnesium 2.1 (1.6-2.6) mg/dL Total Bilirubin 0.3 (0.0-1.0) mg/dL AST 18 (5-31) U/L ALT 21 (0-31) U/L Alkaline Phosphatase 118 H (39-117) U/L Troponin I High Sens 4.9 (<3.5-17.0) ng/L Total Protein 7.0 (6.5-8.0) g/dL Albumin 4.3 (3.5-5.0) g/dL Influenza Type A (PCR) (Negative) Influenza Type B (PCR) (Negative) RSV RNA Qual (PCR) (Negative) SARS-CoV-2 RNA (RT-PCR) (Negative) 02/28/22 Range/Units 17:45 WBC (4.8-10.8) X10*3/uL RBC (4.20-5.50) X10*6/uL Hgb (12.0-16.0) g/dl Hct (37.0-47.0) % MCV (80.0-98.0) fL MCH (27.0-33.0) pg MCHC (31.0-35.0) g/dl RDW (11.0-16.0) % Plt Count (160-400) X10*3/uL MPV (9.4-12.3) fL Immature Gran % (Auto) (0.0-0.4) % Neut % (Auto) (45-73) % Lymph % (Auto) (20-40) % Kidder % (Auto) (2-11) % Eos % (Auto) (0-4) % Baso % (Auto) (0-2) % Lymph # (Auto) (1.2-4.9) X10*3/uL Kidder # (Auto) (0.1-1.2) X10*3/uL Eos # (Auto) (0.0-0.4) X10*3/uL Baso # (Auto) (0.0-0.2) X10*3/uL Abs Immat Gran (auto) (0.00-0.03) X10*3/uL Absolute Neuts (auto) (2.0-8.3) x10*3/uL Absolute Nucleated RBC (0.0-0.012) X10*3/uL Nucleated RBC % (auto) (0.0-0.2) /100WBC Sodium (135-145) mmol/L Potassium (3.3-5.1) mmol/L Chloride (96-108) mmol/L Carbon Dioxide (22-29) mmol/L Anion Gap (12-20) BUN (9-16) mg/dL Creatinine (0.5-1.4) mg/dL Estim Creat Clear Calc Estimated GFR Random Glucose (60-115) mg/dL Calcium (8.4-10.2) mg/dL Magnesium (1.6-2.6) mg/dL Total Bilirubin (0.0-1.0) mg/dL AST (5-31) U/L ALT (0-31) U/L Alkaline Phosphatase (39-117) U/L Troponin I High Sens (<3.5-17.0) ng/L Total Protein (6.5-8.0) g/dL Albumin (3.5-5.0) g/dL Influenza Type A (PCR) NEGATIVE (Negative) Influenza Type B (PCR) NEGATIVE (Negative) RSV RNA Qual (PCR) NEGATIVE (Negative) SARS-CoV-2 RNA (RT-PCR) NEGATIVE (Negative) Imaging Data Chest x-ray: Attestation: I personally reviewed and interpreted this imaging study as follows: My impression: No acute process. Radiologist's impression: EXAMINATION: XR CHEST CLINICAL INFORMATION: Shortness of breath and chest pain COMPARISON: Chest x-ray 02/21/2022 TECHNIQUE: 2 views of the chest were obtained. FINDINGS: Elevation/eventration the right hemidiaphragm with platelike atelectasis at the right lung base similar to prior. No airspace consolidation. No pleural effusion or pneumothorax. Normal cardiomediastinal silhouette and pulmonary vascularity. No acute osseous injury identified. S-shaped scoliotic curvature the thoracolumbar spine. Cholecystectomy clips project in the right upper quadrant. XR/XR chest 2V IMPRESSION: 1.? No acute pulmonary process. 2.? Unchanged elevation/eventration of the right hemidiaphragm with mild right basilar atelectasis. Dictated By: Ludwin Ivey Signed By: Electronically signed by Ludwin?Uche 02/28/22 6023 ECG Data Attestation: I personally reviewed and interpreted this ECG as follows: Prior ECG tracings: available for review Interpretation: Vent. Rate: 086 BPM ? ? Atrial Rate: 086 BPM P-R Int: 144 ms? QRS Dur: 082 ms QT Int: 376 ms ? ? ? P-R-T Axes: 012 -08 014 degrees QTc Int: 449 ms ? Normal sinus rhythm Normal ECG When compared with ECG of 21-FEB-2022 17:19, No significant change was found DD/ [id number] Discharge Plan Discharge Clinical Impression: Chest pain Patient Disposition: Home, Self-Care Instructions: Chest Pain (DC) Additional Instructions: Follow up with your primary care provider. Return to the emergency department immediately if your symptoms worsen or if you develop any dizziness, shortness of breath, difficulty breathing, chest pain, blurry vision, loss of vision, nausea, vomiting, abdominal pain, fever, chills, back pain, or any other complaints. Prescriptions: No Action acetaminophen [Tylenol Extra Strength] 500 mg tablet 1,000 mg PO QID PRN (Reason: fever or pain) Qty: 14 0RF ibuprofen 400 mg tablet 400 mg PO Q6H PRN (Reason: pain) Qty: 14 0RF ferrous sulfate 325 mg (65 mg iron) tablet 325 mg PO DAILY Qty: 30 0RF benzonatate 200 mg capsule 200 mg PO TID PRN (Reason: cough) Qty: 30 0RF doxycycline hyclate 100 mg tablet 100 mg PO BID Qty: 20 0RF prednisone 20 mg tablet 40 mg PO DAILY Qty: 10 0RF nitrofurantoin monohyd/m-cryst [Macrobid] 100 mg capsule 100 mg PO BID 7 Days Qty: 14 0RF Rx Instructions: must administer with a meal/food ondansetron 4 mg tablet,disintegrating 4 mg PO Q8H Qty: 14 0RF cyclobenzaprine 10 mg tablet 10 mg PO TID PRN (Reason: muscle spasm) Qty: 14 0RF lidocaine 5 % adhesive patch,medicated 1 patch topical DAILY Qty: 30 0RF Rx Instructions: leave on most painful area for up to 12 hrs Referrals: [facility] [place] Family Medicine [Provider Group] (Call to establish and follow up with a primary care provider. If you already have a primary care provider, please follow up with them. ) [facility] [place] [facility] [Provider Group] (Call to establish and follow up with a primary care provider. If you already have a primary care provider, please follow up with them. ) [facility] [place] [facility] [Provider Group] (Call to establish and follow up with a primary care provider. If you already have a primary care provider, please follow up with them. ) Interventions: ED Discharge Assessment Last Done: 02/28/22 18:53 Print Language: German
[2022-02-28 17:53] LABS: MANUAL DIFF FLAG NO
[2022-02-28 17:57] LABS: Basophils Absolute Auto 0.1 X10*3/uL (0.0-0.2); Basophils Percent Auto 0.9 % (0-2); Eosinophils Absolute Auto 0.4 X10*3/uL (0.0-0.4); Eosinophils Percent Auto 5.6 % (0-4); Hematocrit 39.1 % (37.0-47.0); Hemoglobin 12.8 g/dl (12.0-16.0); Imm Gran Abs Auto 0.04 X10*3/uL (0.00-0.03); Imm Gran Pct Auto 0.6 % (0.0-0.4); Lymphocytes Absolute Auto 1.9 X10*3/uL (1.2-4.9); Lymphocytes Percent Auto 27.8 % (20-40); Mean Corpuscular HGB Conc 32.7 g/dl (31.0-35.0); Mean Corpuscular Hemoglobin 30.7 pg (27.0-33.0); Mean Corpuscular Volume 93.8 fL (80.0-98.0); Mean Platelet Volume 10.2 fL (9.4-12.3); Monocytes Absolute Auto 0.5 X10*3/uL (0.1-1.2); Monocytes Percent Auto 7.2 % (2-11); Neutrophils Absolute Auto 3.9 x10*3/uL (2.0-8.3); Neutrophils Percent Auto 57.9 % (45-73); Platelet Count 331 X10*3/uL (160-400); Red Blood Count 4.17 X10*6/uL (4.20-5.50); Red Cell Distribution Width 12.9 % (11.0-16.0); White Blood Count 6.8 X10*3/uL (4.8-10.8)
[2022-02-28 18:20] LABS: Alanine Aminotransferase 21 U/L (0-31); Albumin Level 4.3 g/dL (3.5-5.0); Alkaline Phosphatase 118 U/L (39-117); Anion Gap 14 (12-20); Aspartate Amino Transferase 18 U/L (5-31); Bilirubin Total 0.3 mg/dL (0.0-1.0); Blood Urea Nitrogen 19 mg/dL (9-16); Calcium 9.8 mg/dL (8.4-10.2); Carbon Dioxide 24 mmol/L (22-29); Chloride 101 mmol/L (96-108); Creatinine Clr Calc Pharmacy 44.4; Estimated Glomerular Filt Rate 45; Glucose Random 87 mg/dL (60-115); Magnesium 2.1 mg/dL (1.6-2.6); Sodium 135 mmol/L (135-145)
[2022-02-28 18:28] LABS: Troponin-I High Sensitivity 4.9 ng/L (<3.5-17.0)
[2022-02-28 18:47] LABS: Influenza A PCR NEGATIVE (Negative); Influenza B PCR NEGATIVE (Negative); Resp Syncy Virus RNA Qual PCR NEGATIVE (Negative); SARS COV2 PCR INHOUSE NEGATIVE (Negative)
== END 2022-02-28 18:57 | disposition home or self-care (01) ==
LOC: HO.ED 18:55
PROVIDERS: Physician Assistant Medical; Emergency Provider Emergency Medicine Emergency Medical Services
DX: R07.89 Other chest pain (principal); R06.02 Shortness of breath; Z20.822 Contact with and (suspected) exposure to COVID-19; Z79.899 Other long term (current) drug therapy
CPT/HCPCS: 0241U; 71046; 80053; 83735; 84484; 85025; 93005; 99283

== ENCOUNTER 2022-03-12 15:11 | Emergency (ER) | payer OTHER, SELFPAY ==
--- NOTE | 2022-03-12 | ECG_ITS ---
Test Reason : chest pain Blood Pressure : / mmHG Vent. Rate : 090 BPM Atrial Rate : 090 BPM P-R Int : 152 ms QRS Dur : 080 ms QT Int : 356 ms P-R-T Axes : 046 005 017 degrees QTc Int : 435 ms Normal sinus rhythm Minimal voltage criteria for LVH, may be normal variant ( R in aVL ) Inferior infarct , age undetermined Abnormal ECG When compared with ECG of 28-FEB-2022 17:19, No significant change was found Referred By: Generic ED Physician Electronically Signed By:MARYELLEN WHEATLEY
--- NOTE | ~2022-03-12 | XR_ITS ---
EXAMINATION: XR CHEST CLINICAL INFORMATION: Shortness of breath COMPARISON: Chest x-ray 02/28/2022 TECHNIQUE: 2 views of the chest were obtained. FINDINGS: Redemonstrated elevation of the right hemidiaphragm with linear atelectasis in the right lung base. No new focal airspace opacity. No pleural effusion or pneumothorax. Cardiomediastinal silhouette is within normal limits. No evidence of pulmonary edema. Levoconvex scoliotic curvature of the lower thoracic and upper lumbar spine. Surgical clips project in the right upper quadrant. XR/XR chest 2V IMPRESSION: 1. No acute pulmonary process. 2. Unchanged elevation of the right hemidiaphragm with right basilar atelectasis.
[2022-03-12 15:25] VITALS: BP 137/80; PULSE 93; RESP 20; TEMP 36.2; O2SAT 96; BMI 39.2
--- NOTE | 2022-03-12 15:27 | ED.URI ---
HPI - URI/Sore Throat General Chief Complaint: General Medical <Geri Marx NP - Last Filed: 03/12/22 19:21> Stated Complaint: SOB, Chest pressure, multiple complaints <Geri Marx NP - Last Filed: 03/12/22 19:21> Time Seen by Provider: 03/12/22 15:53 <Geri Marx NP - Last Filed: 03/12/22 19:21> Source: patient <Jennifer Morocho NP - Last Filed: 03/12/22 18:54> Mode of arrival: ambulatory <Jennifer Morocho NP - Last Filed: 03/12/22 18:54> Limitations: no limitations <Jennifer Morocho NP - Last Filed: 03/12/22 18:54> History of Present Illness HPI Narrative: 51-year-old female with a past medical history of anxiety, depression, migraine headaches, personality disorder, celiac disease, and colitis presents emergency department today with complaints of headache, shortness of breath, chest pain, and cough since yesterday. She also endorses nausea with inability to tolerate PO and believes she is dehydrated as she has not voided today and her last void was yesterday. She is also reporting a headache which she has had for greater than 1 month. She was in the emergency department on 02/28/22 for complaints of chest pain, shortness of breath, epigastric pain. At that time physical exam, blood work, EKG were unremarkable. Chest x-ray showed no acute process. She was discharged home with recommendations to follow-up with her primary care provider. <Jennifer Morocho NP - Last Filed: 03/12/22 18:54> MD elicited complaint: cough <Jennifer Morocho NP - Last Filed: 03/12/22 18:54> Onset (ago): day(s) (1) <Jennifer Morocho NP - Last Filed: 03/12/22 18:54> Consistency: constant <Jennifer Morocho NP - Last Filed: 03/12/22 18:54> Severity: moderate <Jennifer Morocho NP - Last Filed: 03/12/22 18:54> Description of mucous: yellow <Jennifer Morocho NP - Last Filed: 03/12/22 18:54> Able to tolerate fluids by mouth: No <Jennifer Morocho NP - Last Filed: 03/12/22 18:54> Exacerbating factors: deep breaths <Jennifer Morocho NP - Last Filed: 03/12/22 18:54> Relieving factors: nothing <Jennifer Morocho NP - Last Filed: 03/12/22 18:54> Associated symptoms: headache, shortness of breath, nausea, vomiting and diarrhea <Jennifer Morocho NP - Last Filed: 03/12/22 18:54> Treatments prior to arrival: none <Jennifer Morocho NP - Last Filed: 03/12/22 18:54> Related Data Home Medications: Previous Rx's Medication Instructions Recorded acetaminophen 500 mg tablet 1,000 mg PO QID PRN fever or pain 10/02/20 (Tylenol Extra Strength) #14 tabs ferrous sulfate 325 mg (65 mg 325 mg PO DAILY Iron deficiency 10/02/20 iron) tablet anemia #30 tabs ibuprofen 400 mg tablet 400 mg PO Q6H PRN pain #14 tabs 10/02/20 benzonatate 200 mg capsule 200 mg PO TID PRN cough #30 caps 10/31/21 doxycycline hyclate 100 mg tablet 100 mg PO BID #20 tabs 10/31/21 prednisone 20 mg tablet 40 mg PO DAILY #10 tabs 10/31/21 nitrofurantoin 100 mg PO BID 7 days #14 caps 12/15/21 monohydrate/macrocrystals 100 mg capsule (Macrobid) ondansetron 4 mg disintegrating 4 mg PO Q8H #14 tabs 12/15/21 tablet cyclobenzaprine 10 mg tablet 10 mg PO TID PRN muscle spasm #14 12/31/21 tabs lidocaine 5 % topical patch 1 patch topical DAILY #30 ea 12/31/21 <Geri Marx NP - Last Filed: 03/12/22 19:21> Allergies/Adverse Reactions: Allergies Allergy/AdvReac Type Severity Reaction Status Date / Time cephalexin [From Keflex] Allergy Rash Verified 02/21/22 16:01 droperidol Allergy Anaphylaxis Verified 02/21/22 16:01 ketorolac [From Toradol] Allergy Itching Verified 02/21/22 16:01 Penicillins Allergy Rash Verified 02/21/22 16:01 Sulfa (Sulfonamide Allergy Rash Verified 02/21/22 16:01 Antibiotics) <Geri Marx NP - Last Filed: 03/12/22 19:21> Review of Systems Review of Systems: In addition to documented HPI above, the additional ROS was obtained: Constitutional: No Weight loss, No Fever, No Chills ENT/Mouth: No Ear Pain, No Nasal Congestion, No Sinus Pain, No Hoarseness, No sore throat, No Rhinorrhea, No Swallowing Difficulty Cardiovascular: No edema Respiratory: No Wheezing, rhonci, or crackles Gastrointestinal: No Constipation, No Abdominal pain Genitourinary: No Dysuria, No Urinary Frequency, No Hematuria, No Urinary Incontinence/retention, No Urgency, No Flank Pain Musculoskeletal: No joint pain, No Myalgias, No Joint Swelling Skin: No Skin Lesions, No rash Neuro: No Weakness, No Numbness, No Paresthesias <Jennifer Morocho NP - Last Filed: 03/12/22 18:54> Yes all other systems are reviewed and are negative <Jennifer Morocho NP - Last Filed: 03/12/22 18:54> [facility] Past Medical History Attestation statement: The following information was validated with the patient. <Jennifer Morocho NP - Last Filed: 03/12/22 18:54> Source: old records reviewed <Jennifer Morocho NP - Last Filed: 03/12/22 18:54> Medical History: Medical History Celiac disease Colitis Left-sided weakness <Geri Marx NP - Last Filed: 03/12/22 19:21> Surgical History: Surgical History History of cholecystectomy <Geri Marx NP - Last Filed: 03/12/22 19:21> Social History Social History: Social History Alcohol intake: never Patient Tobacco Use Status: Never used Tobacco Advance Directives: No Advance Directives Information Provided: No <Geri Marx NP - Last Filed: 03/12/22 19:21> Physical Exam Vital Signs: Vital Signs: Last Vital Signs Temp 98.4 F 03/12/22 18:13 Pulse 85 03/12/22 18:13 Resp 20 03/12/22 18:13 BP 140/82 H 03/12/22 18:13 Pulse Ox 99 03/12/22 18:13 O2 Del Method 03/12/22 18:13 BMI result Body Mass Index 39.2 <Geri Marx NP - Last Filed: 03/12/22 19:21> Vital Signs: Last Vital Signs Temp 98.4 F 03/12/22 18:13 Pulse 85 03/12/22 18:13 Resp 20 03/12/22 18:13 BP 140/82 H 03/12/22 18:13 Pulse Ox 99 03/12/22 18:13 O2 Del Method 03/12/22 18:13 BMI result Body Mass Index 39.2 <Jennifer Morocho NP - Last Filed: 03/12/22 18:54> Const: General: cooperative, alert and awake <Jennifer Morocho NP - Last Filed: 03/12/22 18:54> Nutritional Appearance: well nourished <Jennifer Morocho NP - Last Filed: 03/12/22 18:54> Orientation/consciousness: patient oriented x3 <Jennifer Morocho NP - Last Filed: 03/12/22 18:54> Limitations: no limitations <Jennifer Morocho NP - Last Filed: 03/12/22 18:54> HEENT: Head: Yes normal to inspection and Yes atraumatic <Jennifer Morocho NP - Last Filed: 03/12/22 18:54> Ears: hearing grossly normal bilaterally <Jennifer Morocho NP - Last Filed: 03/12/22 18:54> General nose exam: Normal external nose present <Jennifer Morocho NP - Last Filed: 03/12/22 18:54> Face and sinus: Yes normal facial exam and Yes face symmetric <Jennifer Morocho [employer] BREAK[employer]ST INNKEEPER - Last Filed: 03/12/22 18:54> Mouth: Normal oral and palatal mucosa present <Jennifer Morocho [employer]AK[employer] INNKEEPER - Last Filed: 03/12/22 18:54> Eyes: General: appearance normal, both eyes and all related structures <Jennifer Morocho [employer]AK[employer] INNKEEPER - Last Filed: 03/12/22 18:54> Visual Duval: normal visual duval by confrontation <Jennifer Morocho [employer] BREAK[employer] INNKEEPER - Last Filed: 03/12/22 18:54> Alignment and Position: alignment normal <Jennifer Morocho [employer] BREAK[employer] INNKEEPER - Last Filed: 03/12/22 18:54> Periorbital: periorbital findings normal <Jennifer Morocho [employer] BREAK[employer] INNKEEPER - Last Filed: 03/12/22 18:54> Eyelids: Yes eyelids normal <Jennifer Morocho [employer] BREAK[employer] INNKEEPER - Last Filed: 03/12/22 18:54> Conjunctivae: conjunctivae normal <Jennifer Morocho [employer] BREAK[employer] INNKEEPER - Last Filed: 03/12/22 18:54> Sclerae: sclerae normal <Jennifer Morocho [employer] BREAK[employer]ST INNKEEPER - Last Filed: 03/12/22 18:54> Corneas: corneas normal <Jennifer Morocho [employer] BREAK[employer] INNKEEPER - Last Filed: 03/12/22 18:54> Pupils: Equal, round and reactive pupils present <Jennifer Morocho [employer] BREAKFAST INNKEEPER - Last Filed: 03/12/22 18:54> EOM: EOMs intact bilaterally <Jennifer Morocho [employer] BREAK[employer] INNKEEPER - Last Filed: 03/12/22 18:54> Neck: Neck: Yes normal visual inspection, Yes full ROM and Yes no lymphadenopathy <Jennifer Morocho [employer] BREAKFA[employer] INNKEEPER - Last Filed: 03/12/22 18:54> Chest: Chest palpation & inspection: normal inspection of the chest <Jennifer Morocho [employer] BREAKFA[employer] INNKEEPER - Last Filed: 03/12/22 18:54> Resp: Effort & Inspection: normal respiratory effort, Actively coughing and not labored <Jennifer Morocho [employer] BREAK[employer] INNKEEPER - Last Filed: 03/12/22 18:54> Auscultation: clear to auscultation bilaterally, no crackles, no rhonchi and no wheezes <Jennifer Morocho [employer] BREAK[employer] INNKEEPER - Last Filed: 03/12/22 18:54> Cardio: Rate: regular rate <Jennifer Morocho, [employer] AND BREAKFAST INNKEEPER - Last Filed: 03/12/22 18:54> Rhythm: regular rhythm <Jennifer Ramónkristyn, [employer] AND BREAK[employer]ST INNKEEPER - Last Filed: 03/12/22 18:54> GI: Inspection: Yes normal to inspection <Jennifer Ramónkristyn, [employer] AND BREAKFAST INNKEEPER - Last Filed: 03/12/22 18:54> Palpation (GI): Soft to palpation and nontender <Jennifer Plucpartha, [employer] INNKEEPER - Last Filed: 03/12/22 18:54> Auscultation: normal bowel sounds <Jennifer Ramónkristyn, [employer] AND BREAKFAST INNKEEPER - Last Filed: 03/12/22 18:54> Back/Spine/Pelvis: Cervical Spine: cervical ROM normal <Jennifer Ramónkristyn, [employer] AND BREAKFA[employer] INNKEEPER - Last Filed: 03/12/22 18:54> Thoracic/Lumbar Spine: thoraco-lumbar ROM normal <Jennifer Morocho, [employer] BRE[employer] INNKEEPER - Last Filed: 03/12/22 18:54> Skin: General skin exam: no rashes or lesions noted <Jennifer Morocho, [employer] BRE[employer] INNKEEPER - Last Filed: 03/12/22 18:54> Neuro: General: patient oriented x3, tone normal and moves all extremities <Jennifer Plkristyn [employer] BREAKFA[employer] INNKEEPER - Last Filed: 03/12/22 18:54> Cranial nerves: Yes Equal, round and reactive pupils present <Jennifer Plkristyn, [employer] AND BREAKFA[employer] INNKEEPER - Last Filed: 03/12/22 18:54> Cognition (Neuro): normal cognition <Jenniferaubrey Mroocho, [employer] BREAK[employer] INNKEEPER - Last Filed: 03/12/22 18:54> Gait exam (Neuro): Normal gait present <Jennifer Bailee, [employer] INNKEEPER - Last Filed: 03/12/22 18:54> Extrem: General: Yes normal to inspection, Yes full ROM and Yes capillary refill normal <Jenniferaubrey Morocho, [employer] INNKEEPER - Last Filed: 03/12/22 18:54> Psych: Appearance: grossly normal <Jennifer Morocho NP - Last Filed: 03/12/22 18:54> Mental Status: mental status grossly normal <Jennifer Morocho NP - Last Filed: 03/12/22 18:54> Speech and movement: Normal speech and movement present <Jennifer Morocho NP - Last Filed: 03/12/22 18:54> Affect: normal affect <Jennifer Morocho NP - Last Filed: 03/12/22 18:54> Attitude: cooperative <Jennifer Morocho NP - Last Filed: 03/12/22 18:54> Thought process: Normal thought process present <Jennifer Morocho NP - Last Filed: 03/12/22 18:54> Thought content: Normal thought content present <Jennifer Morocho NP - Last Filed: 03/12/22 18:54> Course Course Course Narrative: This is a rapid medical exam. Deferred additional HPI, ROS and PD primary provider. 51-year-old female with history of migraines, anxiety, depression, PTSD, celiac disease, ulcerative colitis, pseudotumor cerebri, COPD here with shortness of breath, chest heaviness, cough no urination since yesterday, headache for a month, dizziness. Vitals are stable. Lungs are clear. Will send labs, UA, EKG, testing for flu, COVID, RSV, chest x-ray <Geri Marx NP - Last Filed: 03/12/22 19:21> Reevaluation(s) Reevaluation #1: Reviewed labs which are normal. <Geri Marx NP - Last Filed: 03/12/22 19:21> Medications Administered Discontinued Medications Generic Name Dose Route Start Last Admin Trade Name Freq PRN Reason Stop Dose Admin Acetaminophen/Butalbital/Caffeine 1 tab 03/12/22 17:17 03/12/22 18:15 Butalb/Acetamin/Caff 50/325/40 Tablet PO 03/12/22 17:18 1 tab ONCE ONE Administration <Geri Marx NP - Last Filed: 03/12/22 19:21> Medications Administered Discontinued Medications Generic Name Dose Route Start Last Admin Trade Name Yassineq PRN Reason Stop Dose Admin Acetaminophen/Butalbital/Caffeine 1 tab 03/12/22 17:17 03/12/22 18:15 Butalb/Acetamin/Caff 50/325/40 Tablet PO 03/12/22 17:18 1 tab ONCE ONE Administration <Jennifer Morocho NP - Last Filed: 03/12/22 18:54> Medical Decision Making Medical Decision Making MDM Narrative: 51-year-old female with a past medical history of anxiety, depression, migraine headaches, personality disorder, celiac disease, and colitis presents emergency department today with complaints of headache, shortness of breath, chest pain, cough since yesterday, endorses nausea with inability to tolerate PO and believes she is dehydrated as she has not voided today and her last void was yesterday. She is also reporting a headache which she has had for greater than 1 month. Chest xray is unchanged from 02/28/22 showing no acute pulmonary process, unchanged elevation of the right hemidiaphragm with right basilar atelectasis. EKG with no acute changes since last EKG done 02/28/22 showing NSR with minimal voltage criteria for LVH, may be normal variant (R in aVL), Inferior infarct , age undetermined. Serology is negative for influenza A/B, RSV, or COVID-19. HPI and presentation consistent with upper respiratory infection. Educated to manage her symptoms with [id number] Tylenol and/Motrin, and [id number] cold medications. Educated to increase your fluid intake and rest when you are able. HPI, physical exam, diagnostics, and plan discussed with patient with no unanswered questions at this time. Educated to return to the emergency department with worsening headache, shortness of breath, worsening chest pain, increased cough, or any other emergent symptoms that concern you. Recommended follow-up with her primary care provider for further treatment and management. <Jennifer Morocho NP - Last Filed: 03/12/22 18:54> Lab Data Result Diagrams: : 03/12/22 18:44 03/12/22 18:44 <Geri Marx NP - Last Filed: 03/12/22 19:21> Labs: Lab Results 12/14/22 12/14/22 12/14/22 Range/Units 16:51 18:44 18:44 WBC 9.5 (4.8-10.8) X10*3/uL RBC 4.21 (4.20-5.50) X10*6/uL Hgb 12.8 (12.0-16.0) g/dl Hct 39.9 (37.0-47.0) % MCV 94.8 (80.0-98.0) fL MCH 30.4 (27.0-33.0) pg MCHC 32.1 (31.0-35.0) g/dl RDW 13.1 (11.0-16.0) % Plt Count 328 (160-400) X10*3/uL MPV 9.8 (9.4-12.3) fL Immature Gran % (Auto) 1.0 H (0.0-0.4) % Neut % (Auto) 72.6 (45-73) % Lymph % (Auto) 17.5 L (20-40) % [place] % (Auto) 4.6 (2-11) % Eos % (Auto) 3.7 (0-4) % Baso % (Auto) 0.6 (0-2) % Lymph # (Auto) 1.7 (1.2-4.9) X10*3/uL [place] # (Auto) 0.4 (0.1-1.2) X10*3/uL Eos # (Auto) 0.4 (0.0-0.4) X10*3/uL Baso # (Auto) 0.1 (0.0-0.2) X10*3/uL Abs Immat Gran (auto) 0.09 H (0.00-0.03) X10*3/uL Absolute Neuts (auto) 6.9 (2.0-8.3) x10*3/uL Absolute Nucleated RBC 0.000 (0.0-0.012) X10*3/uL Nucleated RBC % (auto) 0.0 (0.0-0.2) /100WBC PT (10.0-13.1) SEC INR (0.9-1.1) Sodium 141 (135-145) mmol/L Potassium 4.5 (3.3-5.1) mmol/L Chloride 108 (96-108) mmol/L Carbon Dioxide 23 (22-29) mmol/L Anion Gap 15 (12-20) BUN 19 H (9-16) mg/dL Creatinine 1.28 (0.5-1.4) mg/dL Estim Creat Clear Calc 44.4 Estimated GFR 44 Random Glucose 109 (60-115) mg/dL Calcium 9.7 (8.4-10.2) mg/dL Total Bilirubin 0.2 (0.0-1.0) mg/dL Direct Bilirubin < 0.2 (0.0-0.5) mg/dL AST 17 (5-31) U/L ALT 19 (0-31) U/L Alkaline Phosphatase 125 H (39-117) U/L Troponin I High Sens (<3.5-17.0) ng/L Total Protein 7.0 (6.5-8.0) g/dL Albumin 4.2 (3.5-5.0) g/dL Influenza Type A (PCR) NEGATIVE (Negative) Influenza Type B (PCR) NEGATIVE (Negative) RSV RNA Qual (PCR) NEGATIVE (Negative) SARS-CoV-2 RNA (RT-PCR) NEGATIVE (Negative) 03/12/22 03/12/22 Range/Units 18:44 18:44 WBC (4.8-10.8) X10*3/uL RBC (4.20-5.50) X10*6/uL Hgb (12.0-16.0) g/dl Hct (37.0-47.0) % MCV (80.0-98.0) fL MCH (27.0-33.0) pg MCHC (31.0-35.0) g/dl RDW (11.0-16.0) % Plt Count (160-400) X10*3/uL MPV (9.4-12.3) fL Immature Gran % (Auto) (0.0-0.4) % Neut % (Auto) (45-73) % Lymph % (Auto) (20-40) % [place] % (Auto) (2-11) % Eos % (Auto) (0-4) % Baso % (Auto) (0-2) % Lymph # (Auto) (1.2-4.9) X10*3/uL [place] # (Auto) (0.1-1.2) X10*3/uL Eos # (Auto) (0.0-0.4) X10*3/uL Baso # (Auto) (0.0-0.2) X10*3/uL Abs Immat Gran (auto) (0.00-0.03) X10*3/uL Absolute Neuts (auto) (2.0-8.3) x10*3/uL Absolute Nucleated RBC (0.0-0.012) X10*3/uL Nucleated RBC % (auto) (0.0-0.2) /100WBC PT 11.5 (10.0-13.1) SEC INR 1.0 (0.9-1.1) Sodium (135-145) mmol/L Potassium (3.3-5.1) mmol/L Chloride (96-108) mmol/L Carbon Dioxide (22-29) mmol/L Anion Gap (12-20) BUN (9-16) mg/dL Creatinine (0.5-1.4) mg/dL Estim Creat Clear Calc Estimated GFR Random Glucose (60-115) mg/dL Calcium (8.4-10.2) mg/dL Total Bilirubin (0.0-1.0) mg/dL Direct Bilirubin (0.0-0.5) mg/dL AST (5-31) U/L ALT (0-31) U/L Alkaline Phosphatase (39-117) U/L Troponin I High Sens 6.4 (<3.5-17.0) ng/L Total Protein (6.5-8.0) g/dL Albumin (3.5-5.0) g/dL Influenza Type A (PCR) (Negative) Influenza Type B (PCR) (Negative) RSV RNA Qual (PCR) (Negative) SARS-CoV-2 RNA (RT-PCR) (Negative) <Geri Marx, [employer] AND [employer]AK[employer] INNKEEPER - Last Filed: 03/12/22 19:21> Lab Results 03/12/22 03/12/22 03/12/22 Range/Units 16:51 18:44 18:44 WBC 9.5 (4.8-10.8) X10*3/uL RBC 4.21 (4.20-5.50) X10*6/uL Hgb 12.8 (12.0-16.0) g/dl Hct 39.9 (37.0-47.0) % MCV 94.8 (80.0-98.0) fL MCH 30.4 (27.0-33.0) pg MCHC 32.1 (31.0-35.0) g/dl RDW 13.1 (11.0-16.0) % Plt Count 328 (160-400) X10*3/uL MPV 9.8 (9.4-12.3) fL Immature Gran % (Auto) 1.0 H (0.0-0.4) % Neut % (Auto) 72.6 (45-73) % Lymph % (Auto) 17.5 L (20-40) % [place] % (Auto) 4.6 (2-11) % Eos % (Auto) 3.7 (0-4) % Baso % (Auto) 0.6 (0-2) % Lymph # (Auto) 1.7 (1.2-4.9) X10*3/uL [place] # (Auto) 0.4 (0.1-1.2) X10*3/uL Eos # (Auto) 0.4 (0.0-0.4) X10*3/uL Baso # (Auto) 0.1 (0.0-0.2) X10*3/uL Abs Immat Gran (auto) 0.09 H (0.00-0.03) X10*3/uL Absolute Neuts (auto) 6.9 (2.0-8.3) x10*3/uL Absolute Nucleated RBC 0.000 (0.0-0.012) X10*3/uL Nucleated RBC % (auto) 0.0 (0.0-0.2) /100WBC PT (10.0-13.1) SEC INR (0.9-1.1) Sodium 141 (135-145) mmol/L Potassium 4.5 (3.3-5.1) mmol/L Chloride 108 (96-108) mmol/L Carbon Dioxide 23 (22-29) mmol/L Anion Gap 15 (12-20) BUN 19 H (9-16) mg/dL Creatinine 1.28 (0.5-1.4) mg/dL Estim Creat Clear Calc 44.4 Estimated GFR 44 Random Glucose 109 (60-115) mg/dL Calcium 9.7 (8.4-10.2) mg/dL Total Bilirubin 0.2 (0.0-1.0) mg/dL Direct Bilirubin < 0.2 (0.0-0.5) mg/dL AST 17 (5-31) U/L ALT 19 (0-31) U/L Alkaline Phosphatase 125 H (39-117) U/L Troponin I High Sens (<3.5-17.0) ng/L Total Protein 7.0 (6.5-8.0) g/dL Albumin 4.2 (3.5-5.0) g/dL Influenza Type A (PCR) NEGATIVE (Negative) Influenza Type B (PCR) NEGATIVE (Negative) RSV RNA Qual (PCR) NEGATIVE (Negative) SARS-CoV-2 RNA (RT-PCR) NEGATIVE (Negative) 03/12/22 03/12/22 Range/Units 18:44 18:44 WBC (4.8-10.8) X10*3/uL RBC (4.20-5.50) X10*6/uL Hgb (12.0-16.0) g/dl Hct (37.0-47.0) % MCV (80.0-98.0) fL MCH (27.0-33.0) pg MCHC (31.0-35.0) g/dl RDW (11.0-16.0) % Plt Count (160-400) X10*3/uL MPV (9.4-12.3) fL Immature Gran % (Auto) (0.0-0.4) % Neut % (Auto) (45-73) % Lymph % (Auto) (20-40) % [place] % (Auto) (2-11) % Eos % (Auto) (0-4) % Baso % (Auto) (0-2) % Lymph # (Auto) (1.2-4.9) X10*3/uL [place] # (Auto) (0.1-1.2) X10*3/uL Eos # (Auto) (0.0-0.4) X10*3/uL Baso # (Auto) (0.0-0.2) X10*3/uL Abs Immat Gran (auto) (0.00-0.03) X10*3/uL Absolute Neuts (auto) (2.0-8.3) x10*3/uL Absolute Nucleated RBC (0.0-0.012) X10*3/uL Nucleated RBC % (auto) (0.0-0.2) /100WBC PT 11.5 (10.0-13.1) SEC INR 1.0 (0.9-1.1) Sodium (135-145) mmol/L Potassium (3.3-5.1) mmol/L Chloride (96-108) mmol/L Carbon Dioxide (22-29) mmol/L Anion Gap (12-20) BUN (9-16) mg/dL Creatinine (0.5-1.4) mg/dL Estim Creat Clear Calc Estimated GFR Random Glucose (60-115) mg/dL Calcium (8.4-10.2) mg/dL Total Bilirubin (0.0-1.0) mg/dL Direct Bilirubin (0.0-0.5) mg/dL AST (5-31) U/L ALT (0-31) U/L Alkaline Phosphatase (39-117) U/L Troponin I High Sens 6.4 (<3.5-17.0) ng/L Total Protein (6.5-8.0) g/dL Albumin (3.5-5.0) g/dL Influenza Type A (PCR) (Negative) Influenza Type B (PCR) (Negative) RSV RNA Qual (PCR) (Negative) SARS-CoV-2 RNA (RT-PCR) (Negative) <Jennifer Morocho NP - Last Filed: 03/12/22 18:54> Discharge Plan Discharge Clinical Impression: Upper respiratory infection <Geri Marx NP - Last Filed: 03/12/22 19:21> Patient Disposition: Home, Self-Care <Geri Marx NP - Last Filed: 03/12/22 19:21> Instructions: Upper Respiratory Infection (ED), Viral Syndrome (ED) <Geri Marx NP - Last Filed: 03/12/22 19:21> Additional Instructions: For chest x-ray and EKG are negative for any acute changes. You may manage her symptoms with [id number] Tylenol and/Motrin, and [id number] cold medications. Please increase your fluid intake and rest when you are able. Please return to the emergency department with worsening headache, shortness of breath, worsening chest pain, increased cough, or any other emergent symptoms that concern you. Recommended follow-up with your primary care provider for further treatment and management. <Geri Marx NP - Last Filed: 03/12/22 19:21> Prescriptions: No Action acetaminophen [Tylenol Extra Strength] 500 mg tablet 1,000 mg PO QID PRN (Reason: fever or pain) Qty: 14 0RF ibuprofen 400 mg tablet 400 mg PO Q6H PRN (Reason: pain) Qty: 14 0RF ferrous sulfate 325 mg (65 mg iron) tablet 325 mg PO DAILY Qty: 30 0RF benzonatate 200 mg capsule 200 mg PO TID PRN (Reason: cough) Qty: 30 0RF doxycycline hyclate 100 mg tablet 100 mg PO BID Qty: 20 0RF prednisone 20 mg tablet 40 mg PO DAILY Qty: 10 0RF nitrofurantoin monohyd/m-cryst [Macrobid] 100 mg capsule 100 mg PO BID 7 Days Qty: 14 0RF Rx Instructions: must administer with a meal/food ondansetron 4 mg tablet,disintegrating 4 mg PO Q8H Qty: 14 0RF cyclobenzaprine 10 mg tablet 10 mg PO TID PRN (Reason: muscle spasm) Qty: 14 0RF lidocaine 5 % adhesive patch,medicated 1 patch topical DAILY Qty: 30 0RF Rx Instructions: leave on most painful area for up to 12 hrs <Geri Marx NP - Last Filed: 03/12/22 19:21> [place] [facility] [place] [facility] [place] [facility] [facility] [place] [place] [facility] [place] <Geri Marx NP - Last Filed: 03/12/22 19:21> Stand Alone Forms: Work/School Release <Geri Marx NP - Last Filed: 03/12/22 19:21> Print Language: Polish <Geri Marx NP - Last Filed: 03/12/22 19:21>
[2022-03-12 17:52] LABS: Influenza A PCR NEGATIVE (Negative); Influenza B PCR NEGATIVE (Negative); Resp Syncy Virus RNA Qual PCR NEGATIVE (Negative); SARS COV2 PCR INHOUSE NEGATIVE (Negative)
[2022-03-12 18:13] VITALS: BP 140/82; PULSE 85; RESP 20; TEMP 36.9; O2SAT 99
[2022-03-12] MEDS: Butalb/Acetamin/Caff 50/325/40 TABLET 1 TAB PO (18:15)
[2022-03-12 18:50] LABS: MANUAL DIFF FLAG NO
[2022-03-12 18:54] LABS: Basophils Absolute Auto 0.1 X10*3/uL (0.0-0.2); Basophils Percent Auto 0.6 % (0-2); Eosinophils Absolute Auto 0.4 X10*3/uL (0.0-0.4); Eosinophils Percent Auto 3.7 % (0-4); Hematocrit 39.9 % (37.0-47.0); Hemoglobin 12.8 g/dl (12.0-16.0); Imm Gran Abs Auto 0.09 X10*3/uL (0.00-0.03); Lymphocytes Absolute Auto 1.7 X10*3/uL (1.2-4.9); Lymphocytes Percent Auto 17.5 % (20-40); Mean Corpuscular HGB Conc 32.1 g/dl (31.0-35.0); Mean Corpuscular Hemoglobin 30.4 pg (27.0-33.0); Mean Corpuscular Volume 94.8 fL (80.0-98.0); Mean Platelet Volume 9.8 fL (9.4-12.3); Monocytes Absolute Auto 0.4 X10*3/uL (0.1-1.2); Monocytes Percent Auto 4.6 % (2-11); Neutrophils Absolute Auto 6.9 x10*3/uL (2.0-8.3); Neutrophils Percent Auto 72.6 % (45-73); Platelet Count 328 X10*3/uL (160-400); Red Blood Count 4.21 X10*6/uL (4.20-5.50); Red Cell Distribution Width 13.1 % (11.0-16.0); White Blood Count 9.5 X10*3/uL (4.8-10.8)
[2022-03-12 19:00] LABS: Prothrombin Time 11.5 SEC (10.0-13.1)
[2022-03-12 19:08] LABS: Alanine Aminotransferase 19 U/L (0-31); Albumin Level 4.2 g/dL (3.5-5.0); Alkaline Phosphatase 125 U/L (39-117); Anion Gap 15 (12-20); Aspartate Amino Transferase 17 U/L (5-31); Bilirubin Direct < 0.2 mg/dL (0.0-0.5); Bilirubin Total 0.2 mg/dL (0.0-1.0); Blood Urea Nitrogen 19 mg/dL (9-16); Calcium 9.7 mg/dL (8.4-10.2); Carbon Dioxide 23 mmol/L (22-29); Chloride 108 mmol/L (96-108); Creatinine Clr Calc Pharmacy 44.4; Estimated Glomerular Filt Rate 44; Glucose Random 109 mg/dL (60-115); Potassium 4.5 mmol/L (3.3-5.1); Sodium 141 mmol/L (135-145)
[2022-03-12 19:11] LABS: Troponin-I High Sensitivity 6.4 ng/L (<3.5-17.0)
== END 2022-03-12 19:38 | disposition home or self-care (01) ==
PROVIDERS: Nurse Practitioner Family; Emergency Provider Student in an Organized Health Care Education/Training Program
DX: J06.9 Acute upper respiratory infection, unspecified (principal); Z20.822 Contact with and (suspected) exposure to COVID-19; R51.9 Headache, unspecified
CPT/HCPCS: 0241U; 36415; 71046; 80048; 80076; 84484; 85025; 85610; 93005; 99283; 99284

== ENCOUNTER 2022-03-28 11:19 | Emergency (ER) | payer OTHER, SELFPAY ==
--- NOTE | ~2022-03-28 | XR_ITS ---
EXAMINATION: XR CHEST CLINICAL INFORMATION: Shortness of breath COMPARISON: Previous chest x-ray most recent 03/12/2022 TECHNIQUE: 2 views of the chest were obtained. FINDINGS: The cardiac and mediastinal contours are stable. The right hemidiaphragm is elevated. There is subsegmental atelectasis at the right lung base. The lungs are otherwise clear. There is no pleural effusion or pneumothorax. No acute bone abnormality. Scoliosis and degenerative changes of the spine. XR/XR chest 2V IMPRESSION: No evidence for acute disease in the chest. Elevated right hemidiaphragm and atelectasis at the right lung base similar to previous exam.
[2022-03-28 11:28] VITALS: BP 127/92; PULSE 92; RESP 17; TEMP 36.7; O2SAT 97; BMI 38.5
--- NOTE | 2022-03-28 11:29 | ED.GENADULT ---
HPI - General Adult General Chief complaint: General Medical <Destiney Fontana CNP - Last Filed: 03/28/22 11:32> Stated complaint: Flu Symptoms <Destiney Fontana CNP - Last Filed: 03/28/22 11:32> Time Seen by Provider: 03/28/22 13:55 <Destiney Fontana CNP - Last Filed: 03/28/22 11:32> Source: patient <Berta Hilliard MD - Last Filed: 03/28/22 15:51> Mode of arrival: ambulatory <Berta Hilliard MD - Last Filed: 03/28/22 15:51> History of Present Illness HPI narrative: 51-year-old female who presents from home with 4 months of shortness of breath, chest pain, abdominal discomfort with nausea/vomiting that has all worsened over the past couple of days. On questioning the patient further it sounds like she followed up with her physicians last week and denies any medication changes. Patient denies any fever, chills, urinary pain/burning/frequency. Patient states that she takes Bentyl and that the Zofran that she has previously been prescribed controlled her nausea yesterday but she did not take any today. <Berta Hilliard MD - Last Filed: 03/28/22 15:51> Related Data Home medications: Previous Rx's Medication Instructions Recorded acetaminophen 500 mg tablet 1,000 mg PO QID PRN fever or pain 10/02/20 (Tylenol Extra Strength) #14 tabs ferrous sulfate 325 mg (65 mg 325 mg PO DAILY Iron deficiency 10/02/20 iron) tablet anemia #30 tabs ibuprofen 400 mg tablet 400 mg PO Q6H PRN pain #14 tabs 10/02/20 benzonatate 200 mg capsule 200 mg PO TID PRN cough #30 caps 10/31/21 doxycycline hyclate 100 mg tablet 100 mg PO BID #20 tabs 10/31/21 prednisone 20 mg tablet 40 mg PO DAILY #10 tabs 10/31/21 nitrofurantoin 100 mg PO BID 7 days #14 caps 12/15/21 monohydrate/macrocrystals 100 mg capsule (Macrobid) ondansetron 4 mg disintegrating 4 mg PO Q8H #14 tabs 12/15/21 tablet cyclobenzaprine 10 mg tablet 10 mg PO TID PRN muscle spasm #14 12/31/21 tabs lidocaine 5 % topical patch 1 patch topical DAILY #30 ea 12/31/21 <Destiney Fontana CNP - Last Filed: 03/28/22 11:32> Allergies/adverse reactions: Allergies Allergy/AdvReac Type Severity Reaction Status Date / Time cephalexin [From Keflex] Allergy Rash Verified 02/21/22 16:01 droperidol Allergy Anaphylaxis Verified 02/21/22 16:01 ketorolac [From Toradol] Allergy Itching Verified 02/21/22 16:01 Penicillins Allergy Rash Verified 02/21/22 16:01 Sulfa (Sulfonamide Allergy Rash Verified 02/21/22 16:01 Antibiotics) <Destiney Fontana CNP - Last Filed: 03/28/22 11:32> Review of Systems Review of Systems: Pertinent positives and negatives as stated in HPI. <Berta Hilliard MD - Last Filed: 03/28/22 15:51> [facility] Past Medical History Medical History: Medical History Celiac disease Colitis Left-sided weakness <Destiney Fontana CNP - Last Filed: 03/28/22 11:32> Surgical History: Surgical History History of cholecystectomy <Destiney Fontana CNP - Last Filed: 03/28/22 11:32> Social History Social History: Social History Alcohol intake: never Patient Tobacco Use Status: Never used Tobacco Smoked in Last 30 Days: No Use of substances other than those prescribed or required for medical reasons: No Advance Directives: Yes Advance Directives Information Provided: Yes Advance Directives on File: No <Destiney Fontana CNP - Last Filed: 03/28/22 11:32> Physical Exam ED Vital Signs: Vital Signs - 24 hr 03/28/22 14:22 03/28/22 11:28 Temperature 98.6 F 98.0 F Pulse Rate 88 92 Respiratory Rate 18 17 Blood Pressure 116/74 127/92 H Pulse Oximetry 98 97 Oxygen Delivery Method Room Air Room Air BMI result Body Mass Index 38.5 <Destiney Fontana CNP - Last Filed: 03/28/22 11:32> Vital Signs - 24 hr 03/28/22 14:22 03/28/22 11:28 Temperature 98.6 F 98.0 F Pulse Rate 88 92 Respiratory Rate 18 17 Blood Pressure 116/74 127/92 H Pulse Oximetry 98 97 Oxygen Delivery Method Room Air Room Air BMI result Body Mass Index 38.5 VITAL SIGNS: Reviewed. GENERAL: Well developed, well nourished, in no acute distress. HEAD: Normocephalic/atraumatic EYES: PERRLA, EOMI EARS: Ext canals without abnormality OROPHARYNX: no oral lesions noted, posterior pharynx clear NECK: Supple, no adenopathy LUNGS: Good inspiratory effort, mildly decreased by basilar but may be contributed by patient's body habitus, I do not appreciate any expiratory wheeze or rhonchi. SpO2<98> CARDIOVASCULAR: Regular rate and rhythm without noted murmurs, no JVD or lower extremity edema. ABDOMEN: Soft, non-tender, non-distended with bowel sounds. MUSCULOSKELETAL: No tenderness, deformities, or effusions noted on gross inspection. EXTREMITIES: No cyanosis, clubbing or edema. SKIN: Inspection of the skin reveals no rashes NEUROLOGIC: Alert and oriented x 4. Strength and sensation to light touch were grossly intact x 4. <Berta Hilliard MD - Last Filed: 03/28/22 15:51> Course Course Course Narrative: RME: Patient complaints of cough, nasal congestion with bloody secretions, shortness of breath, headache, nausea, vomiting, right upper abdominal pain, left anterior chest pain. Initially just headache and vomiting 3 days ago. The rest began today. Denies fevers, chills. Will defer additional HPI, ROS, PE to primary provider. PE: LS overall clear, but slightly diminished to right lower lobe. No apparent respiratory distress. Plan: Labs, EKG, viral testing, U/A, chest x-ray <Destiney Fontana CNP - Last Filed: 03/28/22 11:32> Medical Decision Making Medical Decision Making MDM Narrative: 51-year-old female with multiple complaints. Patient is afebrile so doubt infectious etiology and has continue taking her prescribed medications and symptoms seemed to be chronic in presentation. Although she has had some nausea and vomiting it appears to be well controlled by her prescribed medication and she continues to have bowel movements and pass flatus which argues against any obstructive symptoms. On her surgical history of the abdomen she is status post cholecystectomy so doubt any cholecystitis. Given the fact that patient is on Bentyl and Zofran and on review of past medical history it appears she does have celiac disease. Patient was noted to have visited here on 03/12 at that time there is no evidence of acute infection or anemia. She is noted to have a mild metabolic acidosis without evidence of hyperglycemia but may be secondary to medications. There is no evidence of viral infection. Chest x-ray does not demonstrate any pneumonia or pulmonary congestion and patient is not hypoxic. I was informed that patient eloped. <Berta Hilliard MD - Last Filed: 03/28/22 15:51> Differential Diagnosis Differential Diagnoses: The differential diagnosis associated with the presentation includes <Berta Hilliard MD - Last Filed: 03/28/22 15:51> I will rule out CHF, pneumonia, cardiac etiology, obstruction <Berta Hilliard MD - Last Filed: 03/28/22 15:51> Lab Data MDM Lab Attestation statement: I reviewed the patient's lab results. <Berta Hilliard MD - Last Filed: 03/28/22 15:51> Please see discussion above <Berta Hilliard MD - Last Filed: 03/28/22 15:51> Result Diagrams: : 03/28/22 14:38 <Destiney Fontana CNP - Last Filed: 03/28/22 11:32> Labs: Lab Results 03/28/22 03/28/22 03/28/22 Range/Units 11:50 11:50 14:38 Sodium 139 (135-145) mmol/L Potassium 4.2 (3.3-5.1) mmol/L Chloride 114 H (96-108) mmol/L Carbon Dioxide 16 L (22-29) mmol/L Anion Gap 13 (12-20) BUN 25 H (9-16) mg/dL Creatinine 1.13 (0.5-1.4) mg/dL Estim Creat Clear Calc 49.8 Estimated GFR 51 Random Glucose 89 (60-115) mg/dL Calcium 9.0 D (8.4-10.2) mg/dL Magnesium 2.0 (1.6-2.6) mg/dL Total Bilirubin 0.3 (0.0-1.0) mg/dL AST 17 (5-31) U/L ALT 14 (0-31) U/L Alkaline Phosphatase 110 (39-117) U/L Troponin I High Sens (<3.5-17.0) ng/L Total Protein 6.6 (6.5-8.0) g/dL Albumin 3.9 (3.5-5.0) g/dL Lipase 37 (8-78) U/L COVID-19 (CELINA) Negative (Negative) COVID-19 Clin Com See Note Influenza Type A (PERLA) Negative (Negative) Influenza Type B (PERLA) Negative (Negative) Influenza A & B Note See Note 03/28/22 Range/Units 14:38 Sodium (135-145) mmol/L Potassium (3.3-5.1) mmol/L Chloride (96-108) mmol/L Carbon Dioxide (22-29) mmol/L Anion Gap (12-20) BUN (9-16) mg/dL Creatinine (0.5-1.4) mg/dL Estim Creat Clear Calc Estimated GFR Random Glucose (60-115) mg/dL Calcium (8.4-10.2) mg/dL Magnesium (1.6-2.6) mg/dL Total Bilirubin (0.0-1.0) mg/dL AST (5-31) U/L ALT (0-31) U/L Alkaline Phosphatase (39-117) U/L Troponin I High Sens 7.0 (<3.5-17.0) ng/L Total Protein (6.5-8.0) g/dL Albumin (3.5-5.0) g/dL Lipase (8-78) U/L COVID-19 (CELINA) (Negative) COVID-19 Clin Com Influenza Type A (PERLA) (Negative) Influenza Type B (PERLA) (Negative) Influenza A & B Note <Destiney Fontana CNP - Last Filed: 03/28/22 11:32> Lab Results 03/28/22 03/28/22 03/28/22 Range/Units 11:50 11:50 14:38 Sodium 139 (135-145) mmol/L Potassium 4.2 (3.3-5.1) mmol/L Chloride 114 H (96-108) mmol/L Carbon Dioxide 16 L (22-29) mmol/L Anion Gap 13 (12-20) BUN 25 H (9-16) mg/dL Creatinine 1.13 (0.5-1.4) mg/dL Estim Creat Clear Calc 49.8 Estimated GFR 51 Random Glucose 89 (60-115) mg/dL Calcium 9.0 D (8.4-10.2) mg/dL Magnesium 2.0 (1.6-2.6) mg/dL Total Bilirubin 0.3 (0.0-1.0) mg/dL AST 17 (5-31) U/L ALT 14 (0-31) U/L Alkaline Phosphatase 110 (39-117) U/L Troponin I High Sens (<3.5-17.0) ng/L Total Protein 6.6 (6.5-8.0) g/dL Albumin 3.9 (3.5-5.0) g/dL Lipase 37 (8-78) U/L COVID-19 (CELINA) Negative (Negative) COVID-19 Clin Com See Note Influenza Type A (PERLA) Negative (Negative) Influenza Type B (PERLA) Negative (Negative) Influenza A & B Note See Note 03/28/22 Range/Units 14:38 Sodium (135-145) mmol/L Potassium (3.3-5.1) mmol/L Chloride (96-108) mmol/L Carbon Dioxide (22-29) mmol/L Anion Gap (12-20) BUN (9-16) mg/dL Creatinine (0.5-1.4) mg/dL Estim Creat Clear Calc Estimated GFR Random Glucose (60-115) mg/dL Calcium (8.4-10.2) mg/dL Magnesium (1.6-2.6) mg/dL Total Bilirubin (0.0-1.0) mg/dL AST (5-31) U/L ALT (0-31) U/L Alkaline Phosphatase (39-117) U/L Troponin I High Sens 7.0 (<3.5-17.0) ng/L Total Protein (6.5-8.0) g/dL Albumin (3.5-5.0) g/dL Lipase (8-78) U/L COVID-19 (CELINA) (Negative) COVID-19 Clin Com Influenza Type A (PERLA) (Negative) Influenza Type B (PERLA) (Negative) Influenza A & B Note <Berta Hilliard MD - Last Filed: 03/28/22 15:51> Independent Interpretation I performed an independent interpretation of an: EKG <Berta Hilliard MD - Last Filed: 03/28/22 15:51> Interpretation: Normal sinus rhythm, HR-86, no STEMI, AR/QRS/QTC is within normal limits. <Berta Hilliard MD - Last Filed: 03/28/22 15:51> Radiology Impression Radiologist Impression: My interpretation is in agreement with radiology's impression imaging studies. <Berta Hilliard MD - Last Filed: 03/28/22 15:51> External Record Review External record reviewed: Outpatient record and Prior outpatient labs <Berta Hilliard MD - Last Filed: 03/28/22 15:51> Critical Care Time Critical Care Time Critical Care Time: Yes <Berta Hilliard MD - Last Filed: 03/28/22 15:51> Total Critical Care Time: 30 <Berta Hilliard MD - Last Filed: 03/28/22 15:51> Attestation: I personally attest to this time spent taking care of the patient. <Berta Hilliard MD - Last Filed: 03/28/22 15:51> Discharge Plan Discharge Clinical Impression: Depression, Shortness of breath <Destiney Fontana CNP - Last Filed: 03/28/22 11:32> Patient Disposition: Elopement <Destiney Fontana CNP - Last Filed: 03/28/22 11:32> Prescriptions: No Action acetaminophen [Tylenol Extra Strength] 500 mg tablet 1,000 mg PO QID PRN (Reason: fever or pain) Qty: 14 0RF ibuprofen 400 mg tablet 400 mg PO Q6H PRN (Reason: pain) Qty: 14 0RF ferrous sulfate 325 mg (65 mg iron) tablet 325 mg PO DAILY Qty: 30 0RF benzonatate 200 mg capsule 200 mg PO TID PRN (Reason: cough) Qty: 30 0RF doxycycline hyclate 100 mg tablet 100 mg PO BID Qty: 20 0RF prednisone 20 mg tablet 40 mg PO DAILY Qty: 10 0RF nitrofurantoin monohyd/m-cryst [Macrobid] 100 mg capsule 100 mg PO BID 7 Days Qty: 14 0RF Rx Instructions: must administer with a meal/food ondansetron 4 mg tablet,disintegrating 4 mg PO Q8H Qty: 14 0RF cyclobenzaprine 10 mg tablet 10 mg PO TID PRN (Reason: muscle spasm) Qty: 14 0RF lidocaine 5 % adhesive patch,medicated 1 patch topical DAILY Qty: 30 0RF Rx Instructions: leave on most painful area for up to 12 hrs <Destiney Fontana CNP - Last Filed: 03/28/22 11:32> Discharge Date/Time: 03/28/22 15:44 <Destiney Fontana CNP - Last Filed: 03/28/22 11:32>
--- NOTE | 2022-03-28 11:33 | ECG_ITS ---
Test Reason : chest pain Blood Pressure : / mmHG Vent. Rate : 086 BPM Atrial Rate : 086 BPM P-R Int : 160 ms QRS Dur : 082 ms QT Int : 356 ms P-R-T Axes : 027 -07 024 degrees QTc Int : 426 ms Normal sinus rhythm Minimal voltage criteria for LVH, may be normal variant ( R in aVL ) Nonspecific T wave abnormality Abnormal ECG When compared with ECG of 12-MAR-2022 15:18, No significant change was found Referred By: Destiney Fontana Electronically Signed By:AMANDA SAUER MD
[2022-03-28 12:12] LABS: IDNOW Serial# BCCEAD1C
[2022-03-28 12:13] LABS: COVID-19 Test Negative (Negative)
[2022-03-28 12:14] LABS: IDNOW Serial# 16C4AD1C; Influenza A Negative (Negative); Influenza B2 Negative (Negative)
[2022-03-28 14:22] VITALS: BP 116/74; PULSE 88; RESP 18; TEMP 37; O2SAT 98
[2022-03-28 15:06] LABS: Alanine Aminotransferase 14 U/L (0-31); Albumin Level 3.9 g/dL (3.5-5.0); Alkaline Phosphatase 110 U/L (39-117); Anion Gap 13 (12-20); Aspartate Amino Transferase 17 U/L (5-31); Bilirubin Total 0.3 mg/dL (0.0-1.0); Blood Urea Nitrogen 25 mg/dL (9-16); Carbon Dioxide 16 mmol/L (22-29); Chloride 114 mmol/L (96-108); Creatinine Clr Calc Pharmacy 49.8; Estimated Glomerular Filt Rate 51; Glucose Random 89 mg/dL (60-115); Lipase 37 U/L (8-78); Potassium 4.2 mmol/L (3.3-5.1); Sodium 139 mmol/L (135-145); Total Protein 6.6 g/dL (6.5-8.0)
== END 2022-03-28 15:44 | disposition left against medical advice (07) ==
PROVIDERS: Nurse Practitioner Family; Emergency Provider Student in an Organized Health Care Education/Training Program; PCP Internal Medicine
DX: F33.1 Major depressive disorder, recurrent, moderate (principal); R06.02 Shortness of breath; Z20.822 Contact with and (suspected) exposure to COVID-19; Z79.899 Other long term (current) drug therapy
CPT/HCPCS: 71046; 80053; 83690; 83735; 84484; 87502; 87635; 93005; 99283; 99284

== ENCOUNTER 2022-04-05 14:45 | Emergency (ER) | payer OTHER, SELFPAY ==
--- NOTE | ~2022-04-05 | XR_ITS ---
EXAMINATION: XR CHEST CLINICAL INFORMATION: Chest pain. COMPARISON: Chest 03/28/2022. TECHNIQUE: 2 views of the chest were obtained. FINDINGS: There is elevation of right hemidiaphragm with subsegmental atelectasis right lower lobe. Rest of lungs are well-expanded and clear. Heart size and pulmonary vascularity is normal. No gross bony abnormality is mild scoliosis of dorsal spine.. XR/XR chest 2V IMPRESSION: Elevated right hemidiaphragm with subsegmental atelectasis right lower lobe.
[2022-04-05 15:15] VITALS: BP 125/80; PULSE 89; RESP 18; TEMP 36.4; O2SAT 95; BMI 40.7
--- NOTE | 2022-04-05 15:16 | ECG_ITS ---
Test Reason : chest pain Blood Pressure : / mmHG Vent. Rate : 083 BPM Atrial Rate : 083 BPM P-R Int : 158 ms QRS Dur : 084 ms QT Int : 380 ms P-R-T Axes : 023 -09 019 degrees QTc Int : 446 ms Normal sinus rhythm Minimal voltage criteria for LVH, may be normal variant ( R in aVL ) Borderline ECG When compared with ECG of 28-MAR-2022 11:35, No significant change was found Referred By: Nydia Duran Electronically Signed By:MARYELLEN WHEATLEY
--- NOTE | 2022-04-05 15:16 | ED.GENADULT ---
HPI - General Adult General Chief complaint: Dyspnea <TAYLOR Hester - Last Filed: 04/05/22 15:19> Stated complaint: chest pain <TAYLOR Hester - Last Filed: 04/05/22 15:19> Time Seen by Provider: 04/05/22 17:34 <TAYLOR Hester - Last Filed: 04/05/22 15:19> Source: patient <Justice Mckeon MD - Last Filed: 04/05/22 18:18> Mode of arrival: ambulatory <Justice Mckeon MD - Last Filed: 04/05/22 18:18> Limitations: no limitations <Justice Mckeon MD - Last Filed: 04/05/22 18:18> History of Present Illness HPI narrative: 51-year-old female came in for evaluation of coughing and left-sided chest pain also patient been having abdominal pain. Left-sided chest pain started 2 days ago pain is localized to the left chest area, pain is associated with difficulty breathing and coughing with clear sputum. Pain is localized to the under the left breast area with no radiation, worsening with movement and coughing, no relieving factor no other associated symptoms with the chest pain. Patient also is complaining of diffuse abdominal pain associated with nausea, patient unable to urinate since yesterday, no fever, no chills, no diarrhea. Past surgical history significant for cholecystectomy. <Justice Mckeon MD - Last Filed: 04/05/22 18:18> Related Data Home medications: Previous Rx's Medication Instructions Recorded acetaminophen 500 mg tablet 1,000 mg PO QID PRN fever or pain 10/02/20 (Tylenol Extra Strength) #14 tabs ferrous sulfate 325 mg (65 mg 325 mg PO DAILY Iron deficiency 10/02/20 iron) tablet anemia #30 tabs ibuprofen 400 mg tablet 400 mg PO Q6H PRN pain #14 tabs 10/02/20 benzonatate 200 mg capsule 200 mg PO TID PRN cough #30 caps 10/31/21 doxycycline hyclate 100 mg tablet 100 mg PO BID #20 tabs 10/31/21 prednisone 20 mg tablet 40 mg PO DAILY #10 tabs 10/31/21 nitrofurantoin 100 mg PO BID 7 days #14 caps 12/15/21 monohydrate/macrocrystals 100 mg capsule (Macrobid) ondansetron 4 mg disintegrating 4 mg PO Q8H #14 tabs 12/15/21 tablet cyclobenzaprine 10 mg tablet 10 mg PO TID PRN muscle spasm #14 12/31/21 tabs lidocaine 5 % topical patch 1 patch topical DAILY #30 ea 12/31/21 <TAYLOR Hester - Last Filed: 04/05/22 15:19> Allergies/adverse reactions: Allergies Allergy/AdvReac Type Severity Reaction Status Date / Time cephalexin [From Keflex] Allergy Rash Verified 02/21/22 16:01 droperidol Allergy Anaphylaxis Verified 02/21/22 16:01 ketorolac [From Toradol] Allergy Itching Verified 02/21/22 16:01 Penicillins Allergy Rash Verified 02/21/22 16:01 Sulfa (Sulfonamide Allergy Rash Verified 02/21/22 16:01 Antibiotics) <TAYLOR Hester - Last Filed: 04/05/22 15:19> Review of Systems Review of Systems: All other systems are reviewed and are negative Constitutional: Reports as per HPI and Reports no additional constitutional complaints Eyes: Reports as per HPI and Reports no additional eye complaints Reports system reviewed and no additional complaints, except as documented Cardiovascular: Reports as per HPI and Reports no additional cardiovascular complaints Respiratory: Reports as per HPI and Reports no additional respiratory complaints Gastrointestinal: Reports as per HPI and Reports no additional gastrointestinal complaints Genitourinary: Reports no additional female genitourinary complaints Musculoskeletal: Reports no additional musculoskeletal complaints Skin/Breast: Reports system reviewed and no additional complaints, except as docu Psychiatric: Reports no additional psychiatric complaints Endocrine: Reports no additional endocrine complaints Hematologic/Lymphatic: Reports no additional hematologic/lymphatic complaints Allergic/Immunologic: Reports no additional allergic/immunologic complaints Reports system reviewed and no additional complaints, except as documented and Reports Abnormal speech present <Justice Mckeon MD - Last Filed: 04/05/22 18:18> [facility] Past Medical History Medical History: Medical History Celiac disease Colitis Left-sided weakness <TAYLOR Hester - Last Filed: 04/05/22 15:19> Surgical History: Surgical History History of cholecystectomy <TAYLOR Hester - Last Filed: 04/05/22 15:19> Social History Social History: Social History Alcohol intake: never Patient Tobacco Use Status: Never used Tobacco Advance Directives: No Advance Directives Information Provided: No <TAYLOR Hester - Last Filed: 04/05/22 15:19> Physical Exam ED Vital Signs: Vital Signs - 24 hr 04/05/22 15:15 Temperature 97.5 F Pulse Rate 89 Respiratory Rate 18 Blood Pressure 125/80 Pulse Oximetry 95 Oxygen Delivery Method Room Air BMI result Body Mass Index 40.7 <TAYLOR Hester - Last Filed: 04/05/22 15:19> Vital Signs - 24 hr 04/05/22 15:15 Temperature 97.5 F Pulse Rate 89 Respiratory Rate 18 Blood Pressure 125/80 Pulse Oximetry 95 Oxygen Delivery Method Room Air BMI result Body Mass Index 40.7 Vital signs have been reviewed as appeared to be correct. Blood pressure normal. Heart rate normal. Respiration rate normal. Temperature normal. Oxygen saturation normal. <Justice Mckeon MD - Last Filed: 04/05/22 18:18> Appearance: Alert. Oriented X3. No acute distress. Head: Normal external exam. Normocephalic. Atraumatic. No Brennan signs noted. No raccoon eyes noted Eyes: PERRLA. EOMI. Conjunctiva and sclera normal. Eyelids normal. ENT: TM's Normal. Pharynx normal. Uvula midline. Moist mucous membranes. No trismus noted. No drooling noted. No muffled voice noted. Neck: Normal inspection. Neck supple. FROM. No adenopathy. Thyroid Normal. No meningeal signs. No neck mass noted. CVS: Normal heart rate and rhythm. Heart sound normal. No murmurs noted. Pulses normal throughout. Respiratory: No respiratory distress. Painless inspiration. Breath sounds normal. No wheezes/rales/rhonchi noted. Chest nontender. No accessory muscle usage noted or decreased air movement noted. Abdomen: Soft and nontender. Bowel sounds normal in all 4 quadrants. No distention noted. No organomegaly noted. No visible injury noted. Back: No CVA tenderness. Full range of motion noted. Skin: Skin warm and dry. Normal skin color. Normal skin turgor. No rashes/lesions/lacerations noted. Extremities: No lower extremity edema. Extremities exhibit normal range of motion. Extremities nontender. Neuro: Oriented X 3. Cranial nerve exam: II-XII are grossly intact No motor deficit. No sensory deficit. Reflexes normal. <Justice Mckeon MD - Last Filed: 04/05/22 18:18> Course Course Course Narrative: RME performed by Nydia Duran PA-C. Patient is a 51 year old female presenting to the emergency department with SOB. Patient states that she has had a cough and nose bleeding. Patient states that she has abdominal pain as well. Labs + imaging ordered. Patient placed back in waiting room pending room availability and results. <TAYLOR Hester - Last Filed: 04/05/22 15:19> Reevaluation(s) Reevaluation #1: Patient eloped before full evaluation and workup of patient's symptoms. <Justice Mckeon MD - Last Filed: 04/05/22 18:18> Time: 18:16 <Justice Mckeon MD - Last Filed: 04/05/22 18:18> Medical Decision Making Lab Data Result Diagrams: 04/05/22 15:46 04/05/22 15:46 <TAYLOR Hester - Last Filed: 04/05/22 15:19> Labs: Lab Results 04/05/22 04/05/22 04/05/22 Range/Units 15:46 15:46 15:46 WBC 6.2 (4.8-10.8) X10*3/uL RBC 4.04 L (4.20-5.50) X10*6/uL Hgb 12.3 (12.0-16.0) g/dl Hct 38.3 (37.0-47.0) % MCV 94.8 (80.0-98.0) fL MCH 30.4 (27.0-33.0) pg MCHC 32.1 (31.0-35.0) g/dl RDW 14.9 (11.0-16.0) % Plt Count 305 (160-400) X10*3/uL MPV 10.2 (9.4-12.3) fL Immature Gran % (Auto) 0.8 H (0.0-0.4) % Neut % (Auto) 55.4 (45-73) % Lymph % (Auto) 29.6 (20-40) % [place] % (Auto) 7.9 (2-11) % Eos % (Auto) 5.5 H (0-4) % Baso % (Auto) 0.8 (0-2) % Lymph # (Auto) 1.8 (1.2-4.9) X10*3/uL [place] # (Auto) 0.5 (0.1-1.2) X10*3/uL Eos # (Auto) 0.3 (0.0-0.4) X10*3/uL Baso # (Auto) 0.1 (0.0-0.2) X10*3/uL Abs Immat Gran (auto) 0.05 H (0.00-0.03) X10*3/uL Absolute Neuts (auto) 3.4 (2.0-8.3) x10*3/uL Absolute Nucleated RBC 0.000 (0.0-0.012) X10*3/uL Nucleated RBC % (auto) 0.0 (0.0-0.2) /100WBC Sodium 139 (135-145) mmol/L Potassium 4.5 (3.3-5.1) mmol/L Chloride 113 H (96-108) mmol/L Carbon Dioxide 18 L (22-29) mmol/L Anion Gap 13 (12-20) BUN 19 H (9-16) mg/dL Creatinine 1.16 (0.5-1.4) mg/dL Estim Creat Clear Calc 50.1 Estimated GFR 49 Random Glucose 84 (60-115) mg/dL Calcium 9.0 (8.4-10.2) mg/dL Magnesium 2.2 (1.6-2.6) mg/dL Total Bilirubin 0.2 (0.0-1.0) mg/dL AST 20 (5-31) U/L ALT 14 (0-31) U/L Alkaline Phosphatase 111 (39-117) U/L Troponin I High Sens 4.8 (<3.5-17.0) ng/L Total Protein 7.0 (6.5-8.0) g/dL Albumin 4.1 (3.5-5.0) g/dL Influenza Type A (PCR) (Negative) Influenza Type B (PCR) (Negative) RSV RNA Qual (PCR) (Negative) SARS-CoV-2 RNA (RT-PCR) (Negative) 04/05/22 Range/Units 15:46 WBC (4.8-10.8) X10*3/uL RBC (4.20-5.50) X10*6/uL Hgb (12.0-16.0) g/dl Hct (37.0-47.0) % MCV (80.0-98.0) fL MCH (27.0-33.0) pg MCHC (31.0-35.0) g/dl RDW (11.0-16.0) % Plt Count (160-400) X10*3/uL MPV (9.4-12.3) fL Immature Gran % (Auto) (0.0-0.4) % Neut % (Auto) (45-73) % Lymph % (Auto) (20-40) % [place] % (Auto) (2-11) % Eos % (Auto) (0-4) % Baso % (Auto) (0-2) % Lymph # (Auto) (1.2-4.9) X10*3/uL [place] # (Auto) (0.1-1.2) X10*3/uL Eos # (Auto) (0.0-0.4) X10*3/uL Baso # (Auto) (0.0-0.2) X10*3/uL Abs Immat Gran (auto) (0.00-0.03) X10*3/uL Absolute Neuts (auto) (2.0-8.3) x10*3/uL Absolute Nucleated RBC (0.0-0.012) X10*3/uL Nucleated RBC % (auto) (0.0-0.2) /100WBC Sodium (135-145) mmol/L Potassium (3.3-5.1) mmol/L Chloride (96-108) mmol/L Carbon Dioxide (22-29) mmol/L Anion Gap (12-20) BUN (9-16) mg/dL Creatinine (0.5-1.4) mg/dL Estim Creat Clear Calc Estimated GFR Random Glucose (60-115) mg/dL Calcium (8.4-10.2) mg/dL Magnesium (1.6-2.6) mg/dL Total Bilirubin (0.0-1.0) mg/dL AST (5-31) U/L ALT (0-31) U/L Alkaline Phosphatase (39-117) U/L Troponin I High Sens (<3.5-17.0) ng/L Total Protein (6.5-8.0) g/dL Albumin (3.5-5.0) g/dL Influenza Type A (PCR) NEGATIVE (Negative) Influenza Type B (PCR) NEGATIVE (Negative) RSV RNA Qual (PCR) NEGATIVE (Negative) SARS-CoV-2 RNA (RT-PCR) NEGATIVE (Negative) <TAYLOR Hester - Last Filed: 04/05/22 15:19> Lab Results 04/05/22 04/05/22 04/05/22 Range/Units 15:46 15:46 15:46 WBC 6.2 (4.8-10.8) X10*3/uL RBC 4.04 L (4.20-5.50) X10*6/uL Hgb 12.3 (12.0-16.0) g/dl Hct 38.3 (37.0-47.0) % MCV 94.8 (80.0-98.0) fL MCH 30.4 (27.0-33.0) pg MCHC 32.1 (31.0-35.0) g/dl RDW 14.9 (11.0-16.0) % Plt Count 305 (160-400) X10*3/uL MPV 10.2 (9.4-12.3) fL Immature Gran % (Auto) 0.8 H (0.0-0.4) % Neut % (Auto) 55.4 (45-73) % Lymph % (Auto) 29.6 (20-40) % [place] % (Auto) 7.9 (2-11) % Eos % (Auto) 5.5 H (0-4) % Baso % (Auto) 0.8 (0-2) % Lymph # (Auto) 1.8 (1.2-4.9) X10*3/uL [place] # (Auto) 0.5 (0.1-1.2) X10*3/uL Eos # (Auto) 0.3 (0.0-0.4) X10*3/uL Baso # (Auto) 0.1 (0.0-0.2) X10*3/uL Abs Immat Gran (auto) 0.05 H (0.00-0.03) X10*3/uL Absolute Neuts (auto) 3.4 (2.0-8.3) x10*3/uL Absolute Nucleated RBC 0.000 (0.0-0.012) X10*3/uL Nucleated RBC % (auto) 0.0 (0.0-0.2) /100WBC Sodium 139 (135-145) mmol/L Potassium 4.5 (3.3-5.1) mmol/L Chloride 113 H (96-108) mmol/L Carbon Dioxide 18 L (22-29) mmol/L Anion Gap 13 (12-20) BUN 19 H (9-16) mg/dL Creatinine 1.16 (0.5-1.4) mg/dL Estim Creat Clear Calc 50.1 Estimated GFR 49 Random Glucose 84 (60-115) mg/dL Calcium 9.0 (8.4-10.2) mg/dL Magnesium 2.2 (1.6-2.6) mg/dL Total Bilirubin 0.2 (0.0-1.0) mg/dL AST 20 (5-31) U/L ALT 14 (0-31) U/L Alkaline Phosphatase 111 (39-117) U/L Troponin I High Sens 4.8 (<3.5-17.0) ng/L Total Protein 7.0 (6.5-8.0) g/dL Albumin 4.1 (3.5-5.0) g/dL Influenza Type A (PCR) (Negative) Influenza Type B (PCR) (Negative) RSV RNA Qual (PCR) (Negative) SARS-CoV-2 RNA (RT-PCR) (Negative) 04/05/22 Range/Units 15:46 WBC (4.8-10.8) X10*3/uL RBC (4.20-5.50) X10*6/uL Hgb (12.0-16.0) g/dl Hct (37.0-47.0) % MCV (80.0-98.0) fL MCH (27.0-33.0) pg MCHC (31.0-35.0) g/dl RDW (11.0-16.0) % Plt Count (160-400) X10*3/uL MPV (9.4-12.3) fL Immature Gran % (Auto) (0.0-0.4) % Neut % (Auto) (45-73) % Lymph % (Auto) (20-40) % [place] % (Auto) (2-11) % Eos % (Auto) (0-4) % Baso % (Auto) (0-2) % Lymph # (Auto) (1.2-4.9) X10*3/uL [place] # (Auto) (0.1-1.2) X10*3/uL Eos # (Auto) (0.0-0.4) X10*3/uL Baso # (Auto) (0.0-0.2) X10*3/uL Abs Immat Gran (auto) (0.00-0.03) X10*3/uL Absolute Neuts (auto) (2.0-8.3) x10*3/uL Absolute Nucleated RBC (0.0-0.012) X10*3/uL Nucleated RBC % (auto) (0.0-0.2) /100WBC Sodium (135-145) mmol/L Potassium (3.3-5.1) mmol/L Chloride (96-108) mmol/L Carbon Dioxide (22-29) mmol/L Anion Gap (12-20) BUN (9-16) mg/dL Creatinine (0.5-1.4) mg/dL Estim Creat Clear Calc Estimated GFR Random Glucose (60-115) mg/dL Calcium (8.4-10.2) mg/dL Magnesium (1.6-2.6) mg/dL Total Bilirubin (0.0-1.0) mg/dL AST (5-31) U/L ALT (0-31) U/L Alkaline Phosphatase (39-117) U/L Troponin I High Sens (<3.5-17.0) ng/L Total Protein (6.5-8.0) g/dL Albumin (3.5-5.0) g/dL Influenza Type A (PCR) NEGATIVE (Negative) Influenza Type B (PCR) NEGATIVE (Negative) RSV RNA Qual (PCR) NEGATIVE (Negative) SARS-CoV-2 RNA (RT-PCR) NEGATIVE (Negative) <Justice Mckeon MD - Last Filed: 04/05/22 18:18> Discharge Plan Discharge Clinical Impression: Chest pain, Abdominal pain <TAYLOR Hester - Last Filed: 04/05/22 15:19> Patient Disposition: Elopement <TAYLOR Hester - Last Filed: 04/05/22 15:19> Prescriptions: No Action acetaminophen [Tylenol Extra Strength] 500 mg tablet 1,000 mg PO QID PRN (Reason: fever or pain) Qty: 14 0RF ibuprofen 400 mg tablet 400 mg PO Q6H PRN (Reason: pain) Qty: 14 0RF ferrous sulfate 325 mg (65 mg iron) tablet 325 mg PO DAILY Qty: 30 0RF benzonatate 200 mg capsule 200 mg PO TID PRN (Reason: cough) Qty: 30 0RF doxycycline hyclate 100 mg tablet 100 mg PO BID Qty: 20 0RF prednisone 20 mg tablet 40 mg PO DAILY Qty: 10 0RF nitrofurantoin monohyd/m-cryst [Macrobid] 100 mg capsule 100 mg PO BID 7 Days Qty: 14 0RF Rx Instructions: must administer with a meal/food ondansetron 4 mg tablet,disintegrating 4 mg PO Q8H Qty: 14 0RF cyclobenzaprine 10 mg tablet 10 mg PO TID PRN (Reason: muscle spasm) Qty: 14 0RF lidocaine 5 % adhesive patch,medicated 1 patch topical DAILY Qty: 30 0RF Rx Instructions: leave on most painful area for up to 12 hrs <TAYLOR Hester - Last Filed: 04/05/22 15:19>
[2022-04-05 15:55] LABS: MANUAL DIFF FLAG NO
[2022-04-05 15:56] LABS: Basophils Absolute Auto 0.1 X10*3/uL (0.0-0.2); Basophils Percent Auto 0.8 % (0-2); Eosinophils Absolute Auto 0.3 X10*3/uL (0.0-0.4); Eosinophils Percent Auto 5.5 % (0-4); Hematocrit 38.3 % (37.0-47.0); Hemoglobin 12.3 g/dl (12.0-16.0); Imm Gran Abs Auto 0.05 X10*3/uL (0.00-0.03); Imm Gran Pct Auto 0.8 % (0.0-0.4); Lymphocytes Absolute Auto 1.8 X10*3/uL (1.2-4.9); Lymphocytes Percent Auto 29.6 % (20-40); Mean Corpuscular HGB Conc 32.1 g/dl (31.0-35.0); Mean Corpuscular Hemoglobin 30.4 pg (27.0-33.0); Mean Corpuscular Volume 94.8 fL (80.0-98.0); Mean Platelet Volume 10.2 fL (9.4-12.3); Monocytes Absolute Auto 0.5 X10*3/uL (0.1-1.2); Monocytes Percent Auto 7.9 % (2-11); Neutrophils Absolute Auto 3.4 x10*3/uL (2.0-8.3); Neutrophils Percent Auto 55.4 % (45-73); Platelet Count 305 X10*3/uL (160-400); Red Blood Count 4.04 X10*6/uL (4.20-5.50); Red Cell Distribution Width 14.9 % (11.0-16.0); White Blood Count 6.2 X10*3/uL (4.8-10.8)
[2022-04-05 16:12] LABS: Alanine Aminotransferase 14 U/L (0-31); Albumin Level 4.1 g/dL (3.5-5.0); Alkaline Phosphatase 111 U/L (39-117); Anion Gap 13 (12-20); Aspartate Amino Transferase 20 U/L (5-31); Bilirubin Total 0.2 mg/dL (0.0-1.0); Blood Urea Nitrogen 19 mg/dL (9-16); Carbon Dioxide 18 mmol/L (22-29); Chloride 113 mmol/L (96-108); Creatinine Clr Calc Pharmacy 50.1; Estimated Glomerular Filt Rate 49; Glucose Random 84 mg/dL (60-115); Magnesium 2.2 mg/dL (1.6-2.6); Potassium 4.5 mmol/L (3.3-5.1); Sodium 139 mmol/L (135-145)
[2022-04-05 16:17] LABS: Troponin-I High Sensitivity 4.8 ng/L (<3.5-17.0)
[2022-04-05 16:33] LABS: Influenza A PCR NEGATIVE (Negative); Influenza B PCR NEGATIVE (Negative); Resp Syncy Virus RNA Qual PCR NEGATIVE (Negative); SARS COV2 PCR INHOUSE NEGATIVE (Negative)
--- NOTE | 2022-04-05 18:22 | PC.NURSE ---
pt not found in her room, in CT or in the bathrooms. informed charge, another staff nurse reported she walked by me and asked to be let out, said she had to go .
--- NOTE | 2022-04-05 18:22 | PC.NURSE ---
informed MD that pt has eloped
== END 2022-04-05 18:26 | disposition left against medical advice (07) ==
PROVIDERS: Physician Assistant Medical; Emergency Provider Emergency Medicine; PCP Internal Medicine
DX: R07.9 Chest pain, unspecified (principal); R10.9 Unspecified abdominal pain; Z20.822 Contact with and (suspected) exposure to COVID-19; Z20.828 Contact with and (suspected) exposure to other viral communicable diseases
CPT/HCPCS: 0241U; 36415; 71046; 80053; 83735; 84484; 85025; 93005; 99283

== ENCOUNTER 2022-04-21 17:01 | Emergency (ER) | payer OTHER, SELFPAY ==
--- NOTE | 2022-04-21 17:27 | ED.GENADULT ---
HPI - General Adult General Chief complaint: Headache Stated complaint: electric type pain in face Related Data Previous Rx's Medication Instructions Recorded acetaminophen 500 mg tablet 1,000 mg PO QID PRN fever or pain 10/02/20 (Tylenol Extra Strength) #14 tabs ferrous sulfate 325 mg (65 mg 325 mg PO DAILY Iron deficiency 10/02/20 iron) tablet anemia #30 tabs ibuprofen 400 mg tablet 400 mg PO Q6H PRN pain #14 tabs 10/02/20 benzonatate 200 mg capsule 200 mg PO TID PRN cough #30 caps 10/31/21 doxycycline hyclate 100 mg tablet 100 mg PO BID #20 tabs 10/31/21 prednisone 20 mg tablet 40 mg PO DAILY #10 tabs 10/31/21 nitrofurantoin 100 mg PO BID 7 days #14 caps 12/15/21 monohydrate/macrocrystals 100 mg capsule (Macrobid) ondansetron 4 mg disintegrating 4 mg PO Q8H #14 tabs 12/15/21 tablet cyclobenzaprine 10 mg tablet 10 mg PO TID PRN muscle spasm #14 12/31/21 tabs lidocaine 5 % topical patch 1 patch topical DAILY #30 ea 12/31/21 Allergies Allergy/AdvReac Type Severity Reaction Status Date / Time cephalexin [From Keflex] Allergy Rash Verified 04/21/22 17:28 droperidol Allergy Anaphylaxis Verified 04/21/22 17:28 ketorolac [From Toradol] Allergy Itching Verified 04/21/22 17:28 Penicillins Allergy Rash Verified 04/21/22 17:28 Sulfa (Sulfonamide Allergy Rash Verified 04/21/22 17:28 Antibiotics) [facility] Past Medical History Medical History Celiac disease Colitis Left-sided weakness Surgical History History of cholecystectomy Social History Social History Alcohol intake: never Patient Tobacco Use Status: Never used Tobacco Advance Directives: No Advance Directives Information Provided: No Physical Exam ED Vital Signs: BMI result Body Mass Index 27.4 Course Course Course Narrative: RME - 51 yo female with history of PTSD, migraine headaches, anxiety/depression, transverse myelitis who presents to the ER for evaluation of left sided facial and head pain that started at 9am when she was watching TV. She reports intermittent electrical shocks on the left side of her head that are excruciating. She reports double vision all day and nausea. No weakness, numbness or tingling. She called her Headache Specialist today who thinks it is trigeminal neurolgia and told her to come to the hospital. Mild left sided temporal tenderness on exam. Sores in the mouth under her dentures that she reports are nontender. Will start with labs and defer further evaluation and treatment to main ER provider. Discharge Plan Discharge Clinical Impression: Headache Patient Disposition: Elopement Prescriptions: No Action acetaminophen [Tylenol Extra Strength] 500 mg tablet 1,000 mg PO QID PRN (Reason: fever or pain) Qty: 14 0RF ibuprofen 400 mg tablet 400 mg PO Q6H PRN (Reason: pain) Qty: 14 0RF ferrous sulfate 325 mg (65 mg iron) tablet 325 mg PO DAILY Qty: 30 0RF benzonatate 200 mg capsule 200 mg PO TID PRN (Reason: cough) Qty: 30 0RF doxycycline hyclate 100 mg tablet 100 mg PO BID Qty: 20 0RF prednisone 20 mg tablet 40 mg PO DAILY Qty: 10 0RF nitrofurantoin monohyd/m-cryst [Macrobid] 100 mg capsule 100 mg PO BID 7 Days Qty: 14 0RF Rx Instructions: must administer with a meal/food ondansetron 4 mg tablet,disintegrating 4 mg PO Q8H Qty: 14 0RF cyclobenzaprine 10 mg tablet 10 mg PO TID PRN (Reason: muscle spasm) Qty: 14 0RF lidocaine 5 % adhesive patch,medicated 1 patch topical DAILY Qty: 30 0RF Rx Instructions: leave on most painful area for up to 12 hrs Interventions: ED Discharge Assessment Last Done: 04/21/22 19:21 Discharge Date/Time: 04/21/22 19:21
[2022-04-21 17:28] VITALS: BP 134/85; PULSE 96; RESP 16; TEMP 36.9; O2SAT 98; BMI 27.4
--- NOTE | 2022-04-21 19:13 | PC.NURSE ---
brought pt into room, advised pt that labs have been ordered for pt. pt became angry an stated why is it you people have to keep trying, tell the dr to write an order for and iv under the ultrasound appologized to pt as I was unaware that there had been any previous attempts. both or pt AC's have visible ecchymosis, paged phlebotomy for assistance
--- NOTE | 2022-04-21 19:19 | PC.NURSE ---
attempted to revisit lab draw with pt, no response from call to phlebotomy, upon entry room was empty. checked all bathrooms- pt eloped
== END 2022-04-21 19:21 | disposition left against medical advice (07) ==
PROVIDERS: Emergency Provider Emergency Medicine; PCP Internal Medicine
DX: R51.9 Headache, unspecified (principal)
CPT/HCPCS: 99282

== ENCOUNTER 2022-04-29 15:59 | Emergency (ER) | payer OTHER, SELFPAY ==
--- NOTE | ~2022-04-29 | XR_ITS ---
EXAMINATION: XR CHEST CLINICAL INFORMATION: Pneumonia COMPARISON: 04/05/2022 TECHNIQUE: Frontal view of the chest was obtained. FINDINGS: Compared with the prior study there's been no interval change. Again seen is an elevated right hemidiaphragm with minimal basilar atelectasis. No consolidations, pleural effusions or lung masses are seen. Biconvex thoracolumbar scoliosis again noted. Heart size normal. No evidence of CHF. XR/XR chest 1V IMPRESSION: No acute intrathoracic disease.
--- NOTE | 2022-04-29 16:02 | ECG_ITS ---
Test Reason : chest pain Blood Pressure : / mmHG Vent. Rate : 085 BPM Atrial Rate : 085 BPM P-R Int : 154 ms QRS Dur : 082 ms QT Int : 354 ms P-R-T Axes : 020 -12 013 degrees QTc Int : 421 ms Normal sinus rhythm Minimal voltage criteria for LVH, may be normal variant ( R in aVL ) Borderline ECG When compared with ECG of 05-APR-2022 15:47, No significant change was found Referred By: Jamie Wray Electronically Signed By:Elpidio So
[2022-04-29 16:16] VITALS: BP 133/92; PULSE 94; RESP 22; TEMP 37; O2SAT 98; BMI 38.5
--- NOTE | 2022-04-29 16:19 | ED.GENADULT ---
HPI - General Adult General Chief complaint: Abdominal Pain Stated complaint: chest pain/ nausea/ vomiting Related Data Previous Rx's Medication Instructions Recorded acetaminophen 500 mg tablet 1,000 mg PO QID PRN fever or pain 10/02/20 (Tylenol Extra Strength) #14 tabs ferrous sulfate 325 mg (65 mg 325 mg PO DAILY Iron deficiency 10/02/20 iron) tablet anemia #30 tabs ibuprofen 400 mg tablet 400 mg PO Q6H PRN pain #14 tabs 10/02/20 benzonatate 200 mg capsule 200 mg PO TID PRN cough #30 caps 10/31/21 doxycycline hyclate 100 mg tablet 100 mg PO BID #20 tabs 10/31/21 prednisone 20 mg tablet 40 mg PO DAILY #10 tabs 10/31/21 nitrofurantoin 100 mg PO BID 7 days #14 caps 12/15/21 monohydrate/macrocrystals 100 mg capsule (Macrobid) ondansetron 4 mg disintegrating 4 mg PO Q8H #14 tabs 12/15/21 tablet cyclobenzaprine 10 mg tablet 10 mg PO TID PRN muscle spasm #14 12/31/21 tabs lidocaine 5 % topical patch 1 patch topical DAILY #30 ea 12/31/21 cyclobenzaprine 5 mg tablet 5 mg PO TID PRN muscle spasm #10 05/02/22 tabs ondansetron 4 mg disintegrating 4 mg PO Q6-8H PRN nausea and 05/02/22 tablet vomiting #7 tabs Allergies Allergy/AdvReac Type Severity Reaction Status Date / Time cephalexin [From Keflex] Allergy Rash Verified 04/21/22 17:28 droperidol Allergy Anaphylaxis Verified 04/21/22 17:28 ketorolac [From Toradol] Allergy Itching Verified 04/21/22 17:28 Penicillins Allergy Rash Verified 04/21/22 17:28 Sulfa (Sulfonamide Allergy Rash Verified 04/21/22 17:28 Antibiotics) FORMERLY [facility] Past Medical History Medical History Celiac disease Colitis Left-sided weakness Surgical History History of cholecystectomy Social History Social History Alcohol intake: never Patient Tobacco Use Status: Never used Tobacco Advance Directives: No Advance Directives Information Provided: No Physical Exam ED Vital Signs: Vital Signs - 24 hr 04/29/22 16:16 Temperature 98.6 F Pulse Rate 94 Respiratory Rate 22 H Blood Pressure 133/92 H Pulse Oximetry 98 Oxygen Delivery Method Room Air BMI result Body Mass Index 38.5 Course Course Course Narrative: RME: 51 yold female presents to the ED for chest pain, RUQ pain, nausea, vomitting, and diarrhea. patient states recent RSV infection two weeks ago. labs, HARVEY, EkG, troponin, and CHest xray ordered Medical Decision Making Lab Data 04/29/22 16:53 04/29/22 16:53 Labs: Lab Results 04/29/22 04/29/22 04/29/22 Range/Units 16:53 16:53 16:53 WBC 7.6 (4.8-10.8) X10*3/uL RBC 4.38 (4.20-5.50) X10*6/uL Hgb 13.3 (12.0-16.0) g/dl Hct 40.6 (37.0-47.0) % MCV 92.7 (80.0-98.0) fL MCH 30.4 (27.0-33.0) pg MCHC 32.8 (31.0-35.0) g/dl RDW 14.1 (11.0-16.0) % Plt Count 298 (160-400) X10*3/uL MPV 10.2 (9.4-12.3) fL Immature Gran % (Auto) 0.4 (0.0-0.4) % Neut % (Auto) 65.3 (45-73) % Lymph % (Auto) 23.9 (20-40) % [place] % (Auto) 6.2 (2-11) % Eos % (Auto) 3.7 (0-4) % Baso % (Auto) 0.5 (0-2) % Lymph # (Auto) 1.8 (1.2-4.9) X10*3/uL [place] # (Auto) 0.5 (0.1-1.2) X10*3/uL Eos # (Auto) 0.3 (0.0-0.4) X10*3/uL Baso # (Auto) 0.0 (0.0-0.2) X10*3/uL Abs Immat Gran (auto) 0.03 (0.00-0.03) X10*3/uL Absolute Neuts (auto) 5.0 (2.0-8.3) x10*3/uL Absolute Nucleated RBC 0.000 (0.0-0.012) X10*3/uL Nucleated RBC % (auto) 0.0 (0.0-0.2) /100WBC PT (10.0-13.1) SEC INR (0.9-1.1) APTT (26.0-36.4) SEC Sodium 140 (135-145) mmol/L Potassium 4.1 (3.3-5.1) mmol/L Chloride 110 H (96-108) mmol/L Carbon Dioxide 20 L (22-29) mmol/L Anion Gap 14 (12-20) BUN 19 H (9-16) mg/dL Creatinine 1.18 (0.5-1.4) mg/dL Estim Creat Clear Calc 47.7 Estimated GFR 48 Random Glucose 90 (60-115) mg/dL Calcium 9.1 (8.4-10.2) mg/dL Total Bilirubin 0.2 (0.0-1.0) mg/dL AST 15 (5-31) U/L ALT 11 (0-31) U/L Alkaline Phosphatase 127 H (39-117) U/L Troponin I High Sens < 3.5 (<3.5-17.0) ng/L B-Natriuretic Peptide (<100) pg/mL Total Protein 7.0 (6.5-8.0) g/dL Albumin 4.2 (3.5-5.0) g/dL Lipase 23 (8-78) U/L Influenza Type A (PCR) (Negative) Influenza Type B (PCR) (Negative) RSV RNA Qual (PCR) (Negative) SARS-CoV-2 RNA (RT-PCR) (Negative) 04/29/22 04/29/22 04/29/22 Range/Units 16:53 16:53 16:53 WBC (4.8-10.8) X10*3/uL RBC (4.20-5.50) X10*6/uL Hgb (12.0-16.0) g/dl Hct (37.0-47.0) % MCV (80.0-98.0) fL MCH (27.0-33.0) pg MCHC (31.0-35.0) g/dl RDW (11.0-16.0) % Plt Count (160-400) X10*3/uL MPV (9.4-12.3) fL Immature Gran % (Auto) (0.0-0.4) % Neut % (Auto) (45-73) % Lymph % (Auto) (20-40) % [place] % (Auto) (2-11) % Eos % (Auto) (0-4) % Baso % (Auto) (0-2) % Lymph # (Auto) (1.2-4.9) X10*3/uL [place] # (Auto) (0.1-1.2) X10*3/uL Eos # (Auto) (0.0-0.4) X10*3/uL Baso # (Auto) (0.0-0.2) X10*3/uL Abs Immat Gran (auto) (0.00-0.03) X10*3/uL Absolute Neuts (auto) (2.0-8.3) x10*3/uL Absolute Nucleated RBC (0.0-0.012) X10*3/uL Nucleated RBC % (auto) (0.0-0.2) /100WBC PT 11.2 (10.0-13.1) SEC INR 1.0 (0.9-1.1) APTT 39.7 H (26.0-36.4) SEC Sodium (135-145) mmol/L Potassium (3.3-5.1) mmol/L Chloride (96-108) mmol/L Carbon Dioxide (22-29) mmol/L Anion Gap (12-20) BUN (9-16) mg/dL Creatinine (0.5-1.4) mg/dL Estim Creat Clear Calc Estimated GFR Random Glucose (60-115) mg/dL Calcium (8.4-10.2) mg/dL Total Bilirubin (0.0-1.0) mg/dL AST (5-31) U/L ALT (0-31) U/L Alkaline Phosphatase (39-117) U/L Troponin I High Sens (<3.5-17.0) ng/L B-Natriuretic Peptide < 10 (<100) pg/mL Total Protein (6.5-8.0) g/dL Albumin (3.5-5.0) g/dL Lipase (8-78) U/L Influenza Type A (PCR) NEGATIVE (Negative) Influenza Type B (PCR) NEGATIVE (Negative) RSV RNA Qual (PCR) NEGATIVE (Negative) SARS-CoV-2 RNA (RT-PCR) NEGATIVE (Negative) Discharge Plan Discharge Clinical Impression: Chest pain Patient Disposition: Elopement Prescriptions: No Action acetaminophen [Tylenol Extra Strength] 500 mg tablet 1,000 mg PO QID PRN (Reason: fever or pain) Qty: 14 0RF ibuprofen 400 mg tablet 400 mg PO Q6H PRN (Reason: pain) Qty: 14 0RF ferrous sulfate 325 mg (65 mg iron) tablet 325 mg PO DAILY Qty: 30 0RF benzonatate 200 mg capsule 200 mg PO TID PRN (Reason: cough) Qty: 30 0RF doxycycline hyclate 100 mg tablet 100 mg PO BID Qty: 20 0RF prednisone 20 mg tablet 40 mg PO DAILY Qty: 10 0RF nitrofurantoin monohyd/m-cryst [Macrobid] 100 mg capsule 100 mg PO BID 7 Days Qty: 14 0RF Rx Instructions: must administer with a meal/food ondansetron 4 mg tablet,disintegrating 4 mg PO Q8H Qty: 14 0RF cyclobenzaprine 10 mg tablet 10 mg PO TID PRN (Reason: muscle spasm) Qty: 14 0RF lidocaine 5 % adhesive patch,medicated 1 patch topical DAILY Qty: 30 0RF Rx Instructions: leave on most painful area for up to 12 hrs cyclobenzaprine 5 mg tablet 5 mg PO TID PRN (Reason: muscle spasm) Qty: 10 0RF ondansetron 4 mg tablet,disintegrating 4 mg PO Q6-8H PRN (Reason: nausea and vomiting) Qty: 7 0RF Interventions: ED Discharge Assessment Last Done: 04/29/22 22:48 Discharge Date/Time: 04/29/22 22:49
[2022-04-29 17:29] LABS: MANUAL DIFF FLAG NO
[2022-04-29 17:32] LABS: Basophils Percent Auto 0.5 % (0-2); Eosinophils Absolute Auto 0.3 X10*3/uL (0.0-0.4); Eosinophils Percent Auto 3.7 % (0-4); Hematocrit 40.6 % (37.0-47.0); Hemoglobin 13.3 g/dl (12.0-16.0); Imm Gran Abs Auto 0.03 X10*3/uL (0.00-0.03); Imm Gran Pct Auto 0.4 % (0.0-0.4); Lymphocytes Absolute Auto 1.8 X10*3/uL (1.2-4.9); Lymphocytes Percent Auto 23.9 % (20-40); Mean Corpuscular HGB Conc 32.8 g/dl (31.0-35.0); Mean Corpuscular Hemoglobin 30.4 pg (27.0-33.0); Mean Corpuscular Volume 92.7 fL (80.0-98.0); Mean Platelet Volume 10.2 fL (9.4-12.3); Monocytes Absolute Auto 0.5 X10*3/uL (0.1-1.2); Monocytes Percent Auto 6.2 % (2-11); Neutrophils Percent Auto 65.3 % (45-73); Platelet Count 298 X10*3/uL (160-400); Red Blood Count 4.38 X10*6/uL (4.20-5.50); Red Cell Distribution Width 14.1 % (11.0-16.0); White Blood Count 7.6 X10*3/uL (4.8-10.8)
[2022-04-29 17:38] LABS: Prothrombin Time 11.2 SEC (10.0-13.1)
[2022-04-29 17:41] LABS: Partial Thromboplastin Time 39.7 SEC (26.0-36.4)
[2022-04-29 17:45] LABS: Alanine Aminotransferase 11 U/L (0-31); Albumin Level 4.2 g/dL (3.5-5.0); Alkaline Phosphatase 127 U/L (39-117); Anion Gap 14 (12-20); Aspartate Amino Transferase 15 U/L (5-31); Bilirubin Total 0.2 mg/dL (0.0-1.0); Blood Urea Nitrogen 19 mg/dL (9-16); Calcium 9.1 mg/dL (8.4-10.2); Carbon Dioxide 20 mmol/L (22-29); Chloride 110 mmol/L (96-108); Creatinine Clr Calc Pharmacy 47.7; Estimated Glomerular Filt Rate 48; Glucose Random 90 mg/dL (60-115); Lipase 23 U/L (8-78); Potassium 4.1 mmol/L (3.3-5.1); Sodium 140 mmol/L (135-145)
[2022-04-29 17:51] LABS: B Type Natriuretic Peptide < 10 pg/mL (<100)
[2022-04-29 17:56] LABS: Influenza A PCR NEGATIVE (Negative); Influenza B PCR NEGATIVE (Negative); Resp Syncy Virus RNA Qual PCR NEGATIVE (Negative); SARS COV2 PCR INHOUSE NEGATIVE (Negative)
[2022-04-29 17:58] LABS: Troponin-I High Sensitivity < 3.5 ng/L (<3.5-17.0)
== END 2022-04-29 22:49 | disposition left against medical advice (07) ==
PROVIDERS: Physician Assistant; Emergency Provider Emergency Medicine; PCP Internal Medicine
DX: R07.9 Chest pain, unspecified (principal); Z20.822 Contact with and (suspected) exposure to COVID-19; Z20.828 Contact with and (suspected) exposure to other viral communicable diseases; R11.2 Nausea with vomiting, unspecified; Z79.899 Other long term (current) drug therapy
CPT/HCPCS: 0241U; 36415; 71045; 80053; 83690; 83880; 84484; 85025; 85610; 85730; 93005; 99283

== ENCOUNTER 2022-05-02 12:15 | Emergency (ER) | payer OTHER, SELFPAY ==
--- NOTE | ~2022-05-02 | XR_ITS ---
EXAMINATION: XR CHEST CLINICAL INFORMATION: Chest pain COMPARISON: Chest radiographs 04/29/2022, 04/05/2022, 03/28/2022 TECHNIQUE: 2 views of the chest were obtained. FINDINGS: Cardiopulmonary appearance is similar to prior studies. There is chronic mild elevation right diaphragm with subsegmental atelectasis or scarring right base. The lungs are otherwise clear. There is no vascular congestion, airspace consolidation, groundglass opacity, or effusion. The heart is normal in size. The hilar and mediastinal contours and bony structures are stable. XR/XR chest 2V IMPRESSION: 1. Chronic elevation right diaphragm with subsegmental atelectasis or scarring right base. 2. No acute intrathoracic disease.
--- NOTE | 2022-05-02 12:17 | ECG_ITS ---
Test Reason : CP Blood Pressure : / mmHG Vent. Rate : 085 BPM Atrial Rate : 085 BPM P-R Int : 150 ms QRS Dur : 082 ms QT Int : 376 ms P-R-T Axes : 009 -09 -11 degrees QTc Int : 447 ms Normal sinus rhythm Minimal voltage criteria for LVH, may be normal variant ( R in aVL ) Borderline ECG When compared with ECG of 29-APR-2022 16:07, No significant change was found Referred By: Edie Bee Electronically Signed By:Elpidio So
[2022-05-02 12:27] VITALS: BP 119/73; PULSE 86; RESP 18; TEMP 36.1; O2SAT 98; BMI 38.5
--- NOTE | 2022-05-02 12:28 | ED.GENADULT ---
HPI - General Adult General Chief complaint: Chest Pain <TAYLOR Hester - Last Filed: 05/02/22 16:13> Stated complaint: CP/Nausea/SOB <TAYLOR Hester - Last Filed: 05/02/22 16:13> Time Seen by Provider: 05/02/22 13:10 <TAYLOR Hester - Last Filed: 05/02/22 16:13> History of Present Illness HPI narrative: this case was seen by physician assistant family teacher Jesus, I did follow up on the x-ray which was signed out and the chest x-ray was normal and patient was discharged, see TAYLOR lewis for full visit <TAYLOR Hernandez - Last Filed: 05/02/22 18:47> Related Data Home medications: Previous Rx's Medication Instructions Recorded acetaminophen 500 mg tablet 1,000 mg PO QID PRN fever or pain 10/02/20 (Tylenol Extra Strength) #14 tabs ferrous sulfate 325 mg (65 mg 325 mg PO DAILY Iron deficiency 10/02/20 iron) tablet anemia #30 tabs ibuprofen 400 mg tablet 400 mg PO Q6H PRN pain #14 tabs 10/02/20 benzonatate 200 mg capsule 200 mg PO TID PRN cough #30 caps 10/31/21 doxycycline hyclate 100 mg tablet 100 mg PO BID #20 tabs 10/31/21 prednisone 20 mg tablet 40 mg PO DAILY #10 tabs 10/31/21 nitrofurantoin 100 mg PO BID 7 days #14 caps 12/15/21 monohydrate/macrocrystals 100 mg capsule (Macrobid) ondansetron 4 mg disintegrating 4 mg PO Q8H #14 tabs 12/15/21 tablet cyclobenzaprine 10 mg tablet 10 mg PO TID PRN muscle spasm #14 12/31/21 tabs lidocaine 5 % topical patch 1 patch topical DAILY #30 ea 12/31/21 cyclobenzaprine 5 mg tablet 5 mg PO TID PRN muscle spasm #10 05/02/22 tabs ondansetron 4 mg disintegrating 4 mg PO Q6-8H PRN nausea and 05/02/22 tablet vomiting #7 tabs <TAYLOR Hester - Last Filed: 05/02/22 16:13> Allergies/adverse reactions: Allergies Allergy/AdvReac Type Severity Reaction Status Date / Time cephalexin [From Keflex] Allergy Rash Verified 04/21/22 17:28 droperidol Allergy Anaphylaxis Verified 04/21/22 17:28 ketorolac [From Toradol] Allergy Itching Verified 04/21/22 17:28 Penicillins Allergy Rash Verified 04/21/22 17:28 Sulfa (Sulfonamide Allergy Rash Verified 04/21/22 17:28 Antibiotics) <TAYLOR Hester - Last Filed: 05/02/22 16:13> FOR[facility]LY [facility] Past Medical History Medical History: Medical History Celiac disease Colitis Left-sided weakness <TAYLOR Hester - Last Filed: 05/02/22 16:13> Surgical History: Surgical History History of cholecystectomy <TAYLOR Hester - Last Filed: 05/02/22 16:13> Social History Social History: Social History Alcohol intake: never Patient Tobacco Use Status: Never used Tobacco Advance Directives: No Advance Directives Information Provided: No <TAYLOR Hester - Last Filed: 05/02/22 16:13> Physical Exam ED Vital Signs: Vital Signs - 24 hr 05/02/22 12:27 05/02/22 14:54 Temperature 97 F 98.1 F Pulse Rate 86 79 Respiratory Rate 18 17 Blood Pressure 119/73 119/79 Pulse Oximetry 98 94 Oxygen Delivery Method Room Air Room Air BMI result Body Mass Index 38.5 <TAYLOR Hester - Last Filed: 05/02/22 16:13> Vital Signs - 24 hr 05/02/22 12:27 05/02/22 14:54 Temperature 97 F 98.1 F Pulse Rate 86 79 Respiratory Rate 18 17 Blood Pressure 119/73 119/79 Pulse Oximetry 98 94 Oxygen Delivery Method Room Air Room Air BMI result Body Mass Index 38.5 <TAYLOR Hernandez - Last Filed: 05/02/22 18:47> Course Course Course Narrative: RME performed by Nydia Duran PA-C. Patient is a 51 year old female presenting to the emergency department with chest pain, abdominal pain, and shoulder pain. Labs, UA, EKG, XR ordered. Patient placed back in the waiting room pending room availability and results. <TAYLOR Hester - Last Filed: 05/02/22 16:13> Medications Administered Discontinued Medications Generic Name Dose Route Start Last Admin Trade Name Freq PRN Reason Stop Dose Admin Cyclobenzaprine HCl 10 mg 05/02/22 13:29 05/02/22 13:37 Cyclobenzaprine Hcl 10 Mg Tablet PO 05/02/22 13:30 10 mg ONCE ONE Administration Ondansetron HCl 4 mg 05/02/22 13:29 05/02/22 13:37 Ondansetron Odt 4 Mg Tab.Rapdis TRANSLINGU 05/02/22 13:30 4 mg ONCE ONE Administration <TAYLOR Hester - Last Filed: 05/02/22 16:13> Medications Administered Discontinued Medications Generic Name Dose Route Start Last Admin Trade Name Freq PRN Reason Stop Dose Admin Cyclobenzaprine HCl 10 mg 05/02/22 13:29 05/02/22 13:37 Cyclobenzaprine Hcl 10 Mg Tablet PO 05/02/22 13:30 10 mg ONCE ONE Administration Ondansetron HCl 4 mg 05/02/22 13:29 05/02/22 13:37 Ondansetron Odt 4 Mg Tab.Rapdis TRANSLINGU 05/02/22 13:30 4 mg ONCE ONE Administration <TAYLOR Hernandez - Last Filed: 05/02/22 18:47> Medical Decision Making Lab Data Result Diagrams: 05/02/22 12:58 05/02/22 12:58 <TAYLOR Hester - Last Filed: 05/02/22 16:13> Labs: Lab Results 05/02/22 05/02/22 05/02/22 Range/Units 12:58 12:58 12:58 WBC 7.8 (4.8-10.8) X10*3/uL RBC 4.58 (4.20-5.50) X10*6/uL Hgb 13.8 (12.0-16.0) g/dl Hct 43.6 (37.0-47.0) % MCV 95.2 (80.0-98.0) fL MCH 30.1 (27.0-33.0) pg MCHC 31.7 (31.0-35.0) g/dl RDW 14.3 (11.0-16.0) % Plt Count 312 (160-400) X10*3/uL MPV 10.3 (9.4-12.3) fL Immature Gran % (Auto) 0.4 (0.0-0.4) % Neut % (Auto) 57.6 (45-73) % Lymph % (Auto) 31.1 (20-40) % [place] % (Auto) 6.0 (2-11) % Eos % (Auto) 4.0 (0-4) % Baso % (Auto) 0.9 (0-2) % Lymph # (Auto) 2.4 (1.2-4.9) X10*3/uL [place] # (Auto) 0.5 (0.1-1.2) X10*3/uL Eos # (Auto) 0.3 (0.0-0.4) X10*3/uL Baso # (Auto) 0.1 (0.0-0.2) X10*3/uL Abs Immat Gran (auto) 0.03 (0.00-0.03) X10*3/uL Absolute Neuts (auto) 4.5 (2.0-8.3) x10*3/uL Absolute Nucleated RBC 0.000 (0.0-0.012) X10*3/uL Nucleated RBC % (auto) 0.0 (0.0-0.2) /100WBC Sodium 139 (135-145) mmol/L Potassium 4.0 (3.3-5.1) mmol/L Chloride 111 H (96-108) mmol/L Carbon Dioxide 15 L (22-29) mmol/L Anion Gap 17 (12-20) BUN 20 H (9-16) mg/dL Creatinine 1.18 (0.5-1.4) mg/dL Estim Creat Clear Calc 47.7 Estimated GFR 48 Random Glucose 89 (60-115) mg/dL Calcium 9.4 (8.4-10.2) mg/dL Total Bilirubin 0.2 (0.0-1.0) mg/dL AST 17 (5-31) U/L ALT 13 (0-31) U/L Alkaline Phosphatase 131 H (39-117) U/L Troponin I High Sens < 3.5 (<3.5-17.0) ng/L B-Natriuretic Peptide (<100) pg/mL Total Protein 7.3 (6.5-8.0) g/dL Albumin 4.4 (3.5-5.0) g/dL 05/02/22 Range/Units 12:58 WBC (4.8-10.8) X10*3/uL RBC (4.20-5.50) X10*6/uL Hgb (12.0-16.0) g/dl Hct (37.0-47.0) % MCV (80.0-98.0) fL MCH (27.0-33.0) pg MCHC (31.0-35.0) g/dl RDW (11.0-16.0) % Plt Count (160-400) X10*3/uL MPV (9.4-12.3) fL Immature Gran % (Auto) (0.0-0.4) % Neut % (Auto) (45-73) % Lymph % (Auto) (20-40) % [place] % (Auto) (2-11) % Eos % (Auto) (0-4) % Baso % (Auto) (0-2) % Lymph # (Auto) (1.2-4.9) X10*3/uL [place] # (Auto) (0.1-1.2) X10*3/uL Eos # (Auto) (0.0-0.4) X10*3/uL Baso # (Auto) (0.0-0.2) X10*3/uL Abs Immat Gran (auto) (0.00-0.03) X10*3/uL Absolute Neuts (auto) (2.0-8.3) x10*3/uL Absolute Nucleated RBC (0.0-0.012) X10*3/uL Nucleated RBC % (auto) (0.0-0.2) /100WBC Sodium (135-145) mmol/L Potassium (3.3-5.1) mmol/L Chloride (96-108) mmol/L Carbon Dioxide (22-29) mmol/L Anion Gap (12-20) BUN (9-16) mg/dL Creatinine (0.5-1.4) mg/dL Estim Creat Clear Calc Estimated GFR Random Glucose (60-115) mg/dL Calcium (8.4-10.2) mg/dL Total Bilirubin (0.0-1.0) mg/dL AST (5-31) U/L ALT (0-31) U/L Alkaline Phosphatase (39-117) U/L Troponin I High Sens (<3.5-17.0) ng/L B-Natriuretic Peptide < 10 (<100) pg/mL Total Protein (6.5-8.0) g/dL Albumin (3.5-5.0) g/dL <TAYLOR Hester - Last Filed: 05/02/22 16:13> Lab Results 05/02/22 05/02/22 05/02/22 Range/Units 12:58 12:58 12:58 WBC 7.8 (4.8-10.8) X10*3/uL RBC 4.58 (4.20-5.50) X10*6/uL Hgb 13.8 (12.0-16.0) g/dl Hct 43.6 (37.0-47.0) % MCV 95.2 (80.0-98.0) fL MCH 30.1 (27.0-33.0) pg MCHC 31.7 (31.0-35.0) g/dl RDW 14.3 (11.0-16.0) % Plt Count 312 (160-400) X10*3/uL MPV 10.3 (9.4-12.3) fL Immature Gran % (Auto) 0.4 (0.0-0.4) % Neut % (Auto) 57.6 (45-73) % Lymph % (Auto) 31.1 (20-40) % [place] % (Auto) 6.0 (2-11) % Eos % (Auto) 4.0 (0-4) % Baso % (Auto) 0.9 (0-2) % Lymph # (Auto) 2.4 (1.2-4.9) X10*3/uL [place] # (Auto) 0.5 (0.1-1.2) X10*3/uL Eos # (Auto) 0.3 (0.0-0.4) X10*3/uL Baso # (Auto) 0.1 (0.0-0.2) X10*3/uL Abs Immat Gran (auto) 0.03 (0.00-0.03) X10*3/uL Absolute Neuts (auto) 4.5 (2.0-8.3) x10*3/uL Absolute Nucleated RBC 0.000 (0.0-0.012) X10*3/uL Nucleated RBC % (auto) 0.0 (0.0-0.2) /100WBC Sodium 139 (135-145) mmol/L Potassium 4.0 (3.3-5.1) mmol/L Chloride 111 H (96-108) mmol/L Carbon Dioxide 15 L (22-29) mmol/L Anion Gap 17 (12-20) BUN 20 H (9-16) mg/dL Creatinine 1.18 (0.5-1.4) mg/dL Estim Creat Clear Calc 47.7 Estimated GFR 48 Random Glucose 89 (60-115) mg/dL Calcium 9.4 (8.4-10.2) mg/dL Total Bilirubin 0.2 (0.0-1.0) mg/dL AST 17 (5-31) U/L ALT 13 (0-31) U/L Alkaline Phosphatase 131 H (39-117) U/L Troponin I High Sens < 3.5 (<3.5-17.0) ng/L B-Natriuretic Peptide (<100) pg/mL Total Protein 7.3 (6.5-8.0) g/dL Albumin 4.4 (3.5-5.0) g/dL 05/02/22 Range/Units 12:58 WBC (4.8-10.8) X10*3/uL RBC (4.20-5.50) X10*6/uL Hgb (12.0-16.0) g/dl Hct (37.0-47.0) % MCV (80.0-98.0) fL MCH (27.0-33.0) pg MCHC (31.0-35.0) g/dl RDW (11.0-16.0) % Plt Count (160-400) X10*3/uL MPV (9.4-12.3) fL Immature Gran % (Auto) (0.0-0.4) % Neut % (Auto) (45-73) % Lymph % (Auto) (20-40) % [place] % (Auto) (2-11) % Eos % (Auto) (0-4) % Baso % (Auto) (0-2) % Lymph # (Auto) (1.2-4.9) X10*3/uL [place] # (Auto) (0.1-1.2) X10*3/uL Eos # (Auto) (0.0-0.4) X10*3/uL Baso # (Auto) (0.0-0.2) X10*3/uL Abs Immat Gran (auto) (0.00-0.03) X10*3/uL Absolute Neuts (auto) (2.0-8.3) x10*3/uL Absolute Nucleated RBC (0.0-0.012) X10*3/uL Nucleated RBC % (auto) (0.0-0.2) /100WBC Sodium (135-145) mmol/L Potassium (3.3-5.1) mmol/L Chloride (96-108) mmol/L Carbon Dioxide (22-29) mmol/L Anion Gap (12-20) BUN (9-16) mg/dL Creatinine (0.5-1.4) mg/dL Estim Creat Clear Calc Estimated GFR Random Glucose (60-115) mg/dL Calcium (8.4-10.2) mg/dL Total Bilirubin (0.0-1.0) mg/dL AST (5-31) U/L ALT (0-31) U/L Alkaline Phosphatase (39-117) U/L Troponin I High Sens (<3.5-17.0) ng/L B-Natriuretic Peptide < 10 (<100) pg/mL Total Protein (6.5-8.0) g/dL Albumin (3.5-5.0) g/dL <TAYLOR Hernandez - Last Filed: 05/02/22 18:47> Discharge Plan Discharge Clinical Impression: Chest pain <TAYLOR Hester - Last Filed: 05/02/22 16:13> Patient Disposition: Home, Self-Care <TAYLOR Hester - Last Filed: 02/03/23 16:13> Instructions: Chest Pain (DC) <TAYLOR Hester - Last Filed: 05/02/22 16:13> Additional Instructions: medications as directed follow-up with your cardiology as planned your workup today labs were within normal limits <TAYLOR Hester - Last Filed: 05/02/22 16:13> Prescriptions: New cyclobenzaprine 5 mg tablet 5 mg PO TID PRN (Reason: muscle spasm) Qty: 10 0RF ondansetron 4 mg tablet,disintegrating 4 mg PO Q6-8H PRN (Reason: nausea and vomiting) Qty: 7 0RF No Action acetaminophen [Tylenol Extra Strength] 500 mg tablet 1,000 mg PO QID PRN (Reason: fever or pain) Qty: 14 0RF ibuprofen 400 mg tablet 400 mg PO Q6H PRN (Reason: pain) Qty: 14 0RF ferrous sulfate 325 mg (65 mg iron) tablet 325 mg PO DAILY Qty: 30 0RF benzonatate 200 mg capsule 200 mg PO TID PRN (Reason: cough) Qty: 30 0RF doxycycline hyclate 100 mg tablet 100 mg PO BID Qty: 20 0RF prednisone 20 mg tablet 40 mg PO DAILY Qty: 10 0RF nitrofurantoin monohyd/m-cryst [Macrobid] 100 mg capsule 100 mg PO BID 7 Days Qty: 14 0RF Rx Instructions: must administer with a meal/food ondansetron 4 mg tablet,disintegrating 4 mg PO Q8H Qty: 14 0RF cyclobenzaprine 10 mg tablet 10 mg PO TID PRN (Reason: muscle spasm) Qty: 14 0RF lidocaine 5 % adhesive patch,medicated 1 patch topical DAILY Qty: 30 0RF Rx Instructions: leave on most painful area for up to 12 hrs <TAYLOR Hester - Last Filed: 05/02/22 16:13> Interventions: ED Discharge Assessment Last Done: 05/02/22 16:04 <TAYLOR Hester - Last Filed: 05/02/22 16:13> Discharge Date/Time: 05/02/22 16:05 <TAYLOR Hester - Last Filed: 05/02/22 16:13>
[2022-05-02 13:03] LABS: MANUAL DIFF FLAG NO
[2022-05-02 13:14] LABS: Basophils Absolute Auto 0.1 X10*3/uL (0.0-0.2); Basophils Percent Auto 0.9 % (0-2); Eosinophils Absolute Auto 0.3 X10*3/uL (0.0-0.4); Hematocrit 43.6 % (37.0-47.0); Hemoglobin 13.8 g/dl (12.0-16.0); Imm Gran Abs Auto 0.03 X10*3/uL (0.00-0.03); Imm Gran Pct Auto 0.4 % (0.0-0.4); Lymphocytes Absolute Auto 2.4 X10*3/uL (1.2-4.9); Lymphocytes Percent Auto 31.1 % (20-40); Mean Corpuscular HGB Conc 31.7 g/dl (31.0-35.0); Mean Corpuscular Hemoglobin 30.1 pg (27.0-33.0); Mean Corpuscular Volume 95.2 fL (80.0-98.0); Mean Platelet Volume 10.3 fL (9.4-12.3); Monocytes Absolute Auto 0.5 X10*3/uL (0.1-1.2); Neutrophils Absolute Auto 4.5 x10*3/uL (2.0-8.3); Neutrophils Percent Auto 57.6 % (45-73); Platelet Count 312 X10*3/uL (160-400); Red Blood Count 4.58 X10*6/uL (4.20-5.50); Red Cell Distribution Width 14.3 % (11.0-16.0); White Blood Count 7.8 X10*3/uL (4.8-10.8)
--- NOTE | 2022-05-02 13:14 | ED_ITS ---
HPI - Chest Pain General Chief Complaint: Chest Pain <Fidel Lee - Last Filed: 05/02/22 14:55> Stated Complaint: CP/Nausea/SOB <Fidel Lee - Last Filed: 05/02/22 14:55> Time Seen by Provider: 05/02/22 13:10 <Fidel Lee - Last Filed: 05/02/22 14:55> Source: patient <Fidel Lee - Last Filed: 05/02/22 14:55> Limitations: no limitations <Fidel Lee - Last Filed: 05/02/22 14:55> History of Present Illness HPI narrative: 51-year-old female presents to the ER complaining of sudden onset chest pain and right-sided upper abdominal pain. Patient states it happened while she woke up this morning was somewhat sharp in nature. Patient has had similar symptoms multiple times in the past. Patient states she has so she did nausea but with no vomiting. Patient has also had chronic shortness of breath over the last few months. Patient was since our proof plate maker specialist on [place] that could not figure out what was possibly causing shortness of breath. She had CT of her sinuses and chest that were negative. They thought shortness of breath may be due to postnasal drip. Patient has been referred to Cardiology since with concerns of possible CHF he has yet to have an echo at this time. Patient denies tobacco history did or diabetes. Patient does have a history of hypertension migraine headaches irritable bowel syndrome and ulcerative colitis. Pain is 7/10 sharp in nature. <Fidel Lee - Last Filed: 05/02/22 14:55> Related Data Home Medications: Previous Rx's Medication Instructions Recorded acetaminophen 500 mg tablet 1,000 mg PO QID PRN fever or pain 10/02/20 (Tylenol Extra Strength) #14 tabs ferrous sulfate 325 mg (65 mg 325 mg PO DAILY Iron deficiency 10/02/20 iron) tablet anemia #30 tabs ibuprofen 400 mg tablet 400 mg PO Q6H PRN pain #14 tabs 10/02/20 benzonatate 200 mg capsule 200 mg PO TID PRN cough #30 caps 10/31/21 doxycycline hyclate 100 mg tablet 100 mg PO BID #20 tabs 10/31/21 prednisone 20 mg tablet 40 mg PO DAILY #10 tabs 10/31/21 nitrofurantoin 100 mg PO BID 7 days #14 caps 12/15/21 monohydrate/macrocrystals 100 mg capsule (Macrobid) ondansetron 4 mg disintegrating 4 mg PO Q8H #14 tabs 12/15/21 tablet cyclobenzaprine 10 mg tablet 10 mg PO TID PRN muscle spasm #14 12/31/21 tabs lidocaine 5 % topical patch 1 patch topical DAILY #30 ea 12/31/21 cyclobenzaprine 5 mg tablet 5 mg PO TID PRN muscle spasm #10 05/02/22 tabs ondansetron 4 mg disintegrating 4 mg PO Q6-8H PRN nausea and 05/02/22 tablet vomiting #7 tabs <Fidel Lee - Last Filed: 05/02/22 14:55> Allergies/Adverse Reactions: Allergies Allergy/AdvReac Type Severity Reaction Status Date / Time cephalexin [From Keflex] Allergy Rash Verified 04/21/22 17:28 droperidol Allergy Anaphylaxis Verified 04/21/22 17:28 ketorolac [From Toradol] Allergy Itching Verified 04/21/22 17:28 Penicillins Allergy Rash Verified 04/21/22 17:28 Sulfa (Sulfonamide Allergy Rash Verified 04/21/22 17:28 Antibiotics) <Fidel Lee - Last Filed: 05/02/22 14:55> Review of Systems Review of Systems: Constitutional : No Weight loss, No Fever, No Chills, No Night Sweats ENT/Mouth : No sore throat Eyes: no vision changes Cardiovascular : positive chest pain, positive shortness of breath, denies palpitations Respiratory : chronic shortness of breath, no cough from a history of COPD Gastrointestinal : positive nausea and, no vomiting, history of chronic constipation Musculoskeletal : No joint pain, No Myalgias, No Joint SwellingSkin : No Skin Lesions, No rash Neuro : No Weakness, No Numbness, No Paresthesias, No Loss of Consciousness, No Dizziness, No Headache Psych : No Anxiety/Panic, No Depression, No SI/HI/AH/VH, No Social Issues, Heme/Lymph: No Bruising, No Bleeding,No Lymphadenopathy Endocrine : No Polyuria, No Polydipsia, No Temperature Intolerance <Fidel Lee - Last Filed: 05/02/22 14:55> PMFSH Past Medical History Medical History: Medical History Celiac disease Colitis Left-sided weakness <Fidel Lee - Last Filed: 05/02/22 14:55> Surgical History: Surgical History History of cholecystectomy <Fidel Lee - Last Filed: 05/02/22 14:55> Social History Social History: Social History Alcohol intake: never Patient Tobacco Use Status: Never used Tobacco Advance Directives: No Advance Directives Information Provided: No <Fidel Lee - Last Filed: 05/02/22 14:55> Physical Exam Vital Signs: Vital Signs: Last Vital Signs Temp 98.1 F 05/02/22 14:54 Pulse 79 05/02/22 14:54 Resp 17 05/02/22 14:54 BP 119/79 05/02/22 14:54 Pulse Ox 94 05/02/22 14:54 O2 Del Method 05/02/22 14:54 BMI result Body Mass Index 38.5 <Fidel Lee - Last Filed: 05/02/22 14:55> Vital Signs: Last Vital Signs Temp 98.1 F 05/02/22 14:54 Pulse 79 05/02/22 14:54 Resp 17 05/02/22 14:54 BP 119/79 05/02/22 14:54 Pulse Ox 94 05/02/22 14:54 O2 Del Method 05/02/22 14:54 BMI result Body Mass Index 38.5 <TAYLOR Hernandez - Last Filed: 05/02/22 15:52> Const: General: cooperative, comfortable, alert and awake <Fidel Lee - Last Filed: 05/02/22 14:55> HEENT: Head: Yes normocephalic and Yes atraumatic <Fidel Lee - Last Filed: 05/02/22 14:55> Mouth: Normal oral and palatal mucosa present <Fidel Lee - Last Filed: 05/02/22 14:55> Eyes: General: appearance normal, both eyes and all related structures <Fidel Lee - Last Filed: 05/02/22 14:55> Pupils: Equal, round and reactive pupils present <Fidel Lee - Last Filed: 05/02/22 14:55> EOM: EOMs intact bilaterally <Fidel Lee - Last Filed: 05/02/22 14:55> Neck: Neck: Yes full ROM, Yes no lymphadenopathy and Yes no JVD <Fdiel Lee - Last Filed: 05/02/22 14:55> Chest: Chest palpation & inspection: normal inspection of the chest <Fidel Lee Last Filed: 05/02/22 14:55> Resp: Effort & Inspection: normal respiratory effort <Fidel Lee - Last Filed: 05/02/22 14:55> Auscultation: clear to auscultation bilaterally, no crackles, no rales and no rhonchi <Fidel Lee Last Filed: 05/02/22 14:55> Cardio: Rate: regular rate <Fidel Lee Last Filed: 05/02/22 14:55> Rhythm: regular rhythm <Fidel Lee Last Filed: 05/02/22 14:55> Heart sounds: no murmurs and no rubs <Fidel Lee Last Filed: 05/02/22 14:55> GI: Other: abdomen soft positive bowel sounds some right upper quadrant tenderness. No rebound or guarding. <Fidel Lee Last Filed: 05/02/22 14:55> Back/Spine/Pelvis: Other: Full range of motion of the back no lumbar paraspinal muscle tenderness <Fidel Lee Last Filed: 05/02/22 14:55> Skin: General skin exam: no rashes or lesions noted <Fidel Lee Last Filed: 05/02/22 14:55> Rashes: no rashes <Fidel Lee Last Filed: 05/02/22 14:55> Neuro: Other: patient alert oriented x3 no focal deficit surgical scrub technologist is equal bilaterally patient is ambulatory without ataxia <Fidel Lee Last Filed: 05/02/22 14:55> Cranial nerves: Yes Equal, round and reactive pupils present <Fidel Lee Last Filed: 05/02/22 14:55> Extrem: General: Yes normal to inspection and Yes full ROM <Fidel Lee Last Filed: 05/02/22 14:55> Course Course Course Narrative: ACS Atypical chest pain Chest wall pain Pleurisy Costochondritis Right upper abdominal pain <Fidel Lee - Last Filed: 05/02/22 14:55> Medications Administered Discontinued Medications Generic Name Dose Route Start Last Admin Trade Name Freq PRN Reason Stop Dose Admin Cyclobenzaprine HCl 10 mg 05/02/22 13:29 05/02/22 13:37 Cyclobenzaprine Hcl 10 Mg Tablet PO 05/02/22 13:30 10 mg ONCE ONE Administration Ondansetron HCl 4 mg 05/02/22 13:29 05/02/22 13:37 Ondansetron Odt 4 Mg Tab.Rapdis TRANSLINGU 05/02/22 13:30 4 mg ONCE ONE Administration <Fidel Lee - Last Filed: 05/02/22 14:55> Medications Administered Discontinued Medications Generic Name Dose Route Start Last Admin Trade Name Freq PRN Reason Stop Dose Admin Cyclobenzaprine HCl 10 mg 05/02/22 13:29 05/02/22 13:37 Cyclobenzaprine Hcl 10 Mg Tablet PO 05/02/22 13:30 10 mg ONCE ONE Administration Ondansetron HCl 4 mg 05/02/22 13:29 05/02/22 13:37 Ondansetron Odt 4 Mg Tab.Rapdis TRANSLINGU 05/02/22 13:30 4 mg ONCE ONE Administration <TAYLOR Hernandez - Last Filed: 05/02/22 15:52> Medical Decision Making Medical Decision Making MDM Narrative: 51-year-old female presents to the ER with right-sided upper abdominal pain and substernal chest pain onset this a.m.. Patient has been seen for similar symptoms multiple times in the past in the ER. Patient is well known to this institution. Patient has recently spent seen by proof plate maker on [place] for further workup chronic shortness of breath. At this time patient states the pain is sharp and she has nausea. ECG reviewed normal sinus rhythm at a rate of [address] elevation overall at this time low suspicion for ACS. Troponins are pending 4 mg Zofran 0DT 10 mg Flexeril p.o. 14:04 troponins less than 3.5 BNP is less than 10. Chest x-ray still pending symptoms seem more consistent with muscle skeletal strain of the chest wall. CM P is unremarkable. 14:55 patient signed out to [facility] pending chest x-ray results <Fidel Lee - Last Filed: 05/02/22 14:55> 51-year-old female presents to the ER with right-sided upper abdominal pain and substernal chest pain onset this a.m.. Patient has been seen for similar symptoms multiple times in the past in the ER. Patient is well known to this institution. Patient has recently spent seen by proof plate maker on [place] for further workup chronic shortness of breath. At this time patient states the pain is sharp and she has nausea. ECG reviewed normal sinus rhythm at a rate of [address] elevation overall at this time low suspicion for ACS. Troponins are pending 4 mg Zofran 0DT 10 mg Flexeril p.o. 14:04 troponins less than 3.5 BNP is less than 10. Chest x-ray still pending symptoms seem more consistent with muscle skeletal strain of the chest wall. CMP is unremarkable. 14:55 patient signed out to [facility] pending chest x-ray results chest x-ray result was negative for any acute findings and patient was discharged <TAYLOR Hernandez - Last Filed: 05/02/22 15:52> Lab Data Result Diagrams: 05/02/22 12:58 05/02/22 12:58 <Fidel Lee - Last Filed: 05/02/22 14:55> Labs: Lab Results 05/02/22 05/02/22 05/02/22 Range/Units 12:58 12:58 12:58 WBC 7.8 (4.8-10.8) X10*3/uL RBC 4.58 (4.20-5.50) X10*6/uL Hgb 13.8 (12.0-16.0) g/dl Hct 43.6 (37.0-47.0) % MCV 95.2 (80.0-98.0) fL MCH 30.1 (27.0-33.0) pg MCHC 31.7 (31.0-35.0) g/dl RDW 14.3 (11.0-16.0) % Plt Count 312 (160-400) X10*3/uL MPV 10.3 (9.4-12.3) fL Immature Gran % (Auto) 0.4 (0.0-0.4) % Neut % (Auto) 57.6 (45-73) % Lymph % (Auto) 31.1 (20-40) % [place] % (Auto) 6.0 (2-11) % Eos % (Auto) 4.0 (0-4) % Baso % (Auto) 0.9 (0-2) % Lymph # (Auto) 2.4 (1.2-4.9) X10*3/uL [place] # (Auto) 0.5 (0.1-1.2) X10*3/uL Eos # (Auto) 0.3 (0.0-0.4) X10*3/uL Baso # (Auto) 0.1 (0.0-0.2) X10*3/uL Abs Immat Gran (auto) 0.03 (0.00-0.03) X10*3/uL Absolute Neuts (auto) 4.5 (2.0-8.3) x10*3/uL Absolute Nucleated RBC 0.000 (0.0-0.012) X10*3/uL Nucleated RBC % (auto) 0.0 (0.0-0.2) /100WBC Sodium 139 (135-145) mmol/L Potassium 4.0 (3.3-5.1) mmol/L Chloride 111 H (96-108) mmol/L Carbon Dioxide 15 L (22-29) mmol/L Anion Gap 17 (12-20) BUN 20 H (9-16) mg/dL Creatinine 1.18 (0.5-1.4) mg/dL Estim Creat Clear Calc 47.7 Estimated GFR 48 Random Glucose 89 (60-115) mg/dL Calcium 9.4 (8.4-10.2) mg/dL Total Bilirubin 0.2 (0.0-1.0) mg/dL AST 17 (5-31) U/L ALT 13 (0-31) U/L Alkaline Phosphatase 131 H (39-117) U/L Troponin I High Sens < 3.5 (<3.5-17.0) ng/L B-Natriuretic Peptide (<100) pg/mL Total Protein 7.3 (6.5-8.0) g/dL Albumin 4.4 (3.5-5.0) g/dL 05/02/22 Range/Units 12:58 WBC (4.8-10.8) X10*3/uL RBC (4.20-5.50) X10*6/uL Hgb (12.0-16.0) g/dl Hct (37.0-47.0) % MCV (80.0-98.0) fL MCH (27.0-33.0) pg MCHC (31.0-35.0) g/dl RDW (11.0-16.0) % Plt Count (160-400) X10*3/uL MPV (9.4-12.3) fL Immature Gran % (Auto) (0.0-0.4) % Neut % (Auto) (45-73) % Lymph % (Auto) (20-40) % [place] % (Auto) (2-11) % Eos % (Auto) (0-4) % Baso % (Auto) (0-2) % Lymph # (Auto) (1.2-4.9) X10*3/uL [place] # (Auto) (0.1-1.2) X10*3/uL Eos # (Auto) (0.0-0.4) X10*3/uL Baso # (Auto) (0.0-0.2) X10*3/uL Abs Immat Gran (auto) (0.00-0.03) X10*3/uL Absolute Neuts (auto) (2.0-8.3) x10*3/uL Absolute Nucleated RBC (0.0-0.012) X10*3/uL Nucleated RBC % (auto) (0.0-0.2) /100WBC Sodium (135-145) mmol/L Potassium (3.3-5.1) mmol/L Chloride (96-108) mmol/L Carbon Dioxide (22-29) mmol/L Anion Gap (12-20) BUN (9-16) mg/dL Creatinine (0.5-1.4) mg/dL Estim Creat Clear Calc Estimated GFR Random Glucose (60-115) mg/dL Calcium (8.4-10.2) mg/dL Total Bilirubin (0.0-1.0) mg/dL AST (5-31) U/L ALT (0-31) U/L Alkaline Phosphatase (39-117) U/L Troponin I High Sens (<3.5-17.0) ng/L B-Natriuretic Peptide < 10 (<100) pg/mL Total Protein (6.5-8.0) g/dL Albumin (3.5-5.0) g/dL <Fidel Lee - Last Filed: 05/02/22 14:55> Lab Results 05/02/22 05/02/22 05/02/22 Range/Units 12:58 12:58 12:58 WBC 7.8 (4.8-10.8) X10*3/uL RBC 4.58 (4.20-5.50) X10*6/uL Hgb 13.8 (12.0-16.0) g/dl Hct 43.6 (37.0-47.0) % MCV 95.2 (80.0-98.0) fL MCH 30.1 (27.0-33.0) pg MCHC 31.7 (31.0-35.0) g/dl RDW 14.3 (11.0-16.0) % Plt Count 312 (160-400) X10*3/uL MPV 10.3 (9.4-12.3) fL Immature Gran % (Auto) 0.4 (0.0-0.4) % Neut % (Auto) 57.6 (45-73) % Lymph % (Auto) 31.1 (20-40) % [place] % (Auto) 6.0 (2-11) % Eos % (Auto) 4.0 (0-4) % Baso % (Auto) 0.9 (0-2) % Lymph # (Auto) 2.4 (1.2-4.9) X10*3/uL [place] # (Auto) 0.5 (0.1-1.2) X10*3/uL Eos # (Auto) 0.3 (0.0-0.4) X10*3/uL Baso # (Auto) 0.1 (0.0-0.2) X10*3/uL Abs Immat Gran (auto) 0.03 (0.00-0.03) X10*3/uL Absolute Neuts (auto) 4.5 (2.0-8.3) x10*3/uL Absolute Nucleated RBC 0.000 (0.0-0.012) X10*3/uL Nucleated RBC % (auto) 0.0 (0.0-0.2) /100WBC Sodium 139 (135-145) mmol/L Potassium 4.0 (3.3-5.1) mmol/L Chloride 111 H (96-108) mmol/L Carbon Dioxide 15 L (22-29) mmol/L Anion Gap 17 (12-20) BUN 20 H (9-16) mg/dL Creatinine 1.18 (0.5-1.4) mg/dL Estim Creat Clear Calc 47.7 Estimated GFR 48 Random Glucose 89 (60-115) mg/dL Calcium 9.4 (8.4-10.2) mg/dL Total Bilirubin 0.2 (0.0-1.0) mg/dL AST 17 (5-31) U/L ALT 13 (0-31) U/L Alkaline Phosphatase 131 H (39-117) U/L Troponin I High Sens < 3.5 (<3.5-17.0) ng/L B-Natriuretic Peptide (<100) pg/mL Total Protein 7.3 (6.5-8.0) g/dL Albumin 4.4 (3.5-5.0) g/dL 05/02/22 Range/Units 12:58 WBC (4.8-10.8) X10*3/uL RBC (4.20-5.50) X10*6/uL Hgb (12.0-16.0) g/dl Hct (37.0-47.0) % MCV (80.0-98.0) fL MCH (27.0-33.0) pg MCHC (31.0-35.0) g/dl RDW (11.0-16.0) % Plt Count (160-400) X10*3/uL MPV (9.4-12.3) fL Immature Gran % (Auto) (0.0-0.4) % Neut % (Auto) (45-73) % Lymph % (Auto) (20-40) % [place] % (Auto) (2-11) % Eos % (Auto) (0-4) % Baso % (Auto) (0-2) % Lymph # (Auto) (1.2-4.9) X10*3/uL [place] # (Auto) (0.1-1.2) X10*3/uL Eos # (Auto) (0.0-0.4) X10*3/uL Baso # (Auto) (0.0-0.2) X10*3/uL Abs Immat Gran (auto) (0.00-0.03) X10*3/uL Absolute Neuts (auto) (2.0-8.3) x10*3/uL Absolute Nucleated RBC (0.0-0.012) X10*3/uL Nucleated RBC % (auto) (0.0-0.2) /100WBC Sodium (135-145) mmol/L Potassium (3.3-5.1) mmol/L Chloride (96-108) mmol/L Carbon Dioxide (22-29) mmol/L Anion Gap (12-20) BUN (9-16) mg/dL Creatinine (0.5-1.4) mg/dL Estim Creat Clear Calc Estimated GFR Random Glucose (60-115) mg/dL Calcium (8.4-10.2) mg/dL Total Bilirubin (0.0-1.0) mg/dL AST (5-31) U/L ALT (0-31) U/L Alkaline Phosphatase (39-117) U/L Troponin I High Sens (<3.5-17.0) ng/L B-Natriuretic Peptide < 10 (<100) pg/mL Total Protein (6.5-8.0) g/dL Albumin (3.5-5.0) g/dL <TAYLOR Hernandez - Last Filed: 05/02/22 15:52> Discharge Plan Discharge Clinical Impression: Chest pain <Fidel Lee - Last Filed: 05/02/22 14:55> Instructions: Chest Pain (DC) <Fidel Lee - Last Filed: 05/02/22 14:55> Additional Instructions: medications as directed follow-up with your cardiology as planned your workup today labs were within normal limits <Fidel Lee - Last Filed: 05/02/22 14:55> Prescriptions: New cyclobenzaprine 5 mg tablet 5 mg PO TID PRN (Reason: muscle spasm) Qty: 10 0RF ondansetron 4 mg tablet,disintegrating 4 mg PO Q6-8H PRN (Reason: nausea and vomiting) Qty: 7 0RF No Action acetaminophen [Tylenol Extra Strength] 500 mg tablet 1,000 mg PO QID PRN (Reason: fever or pain) Qty: 14 0RF ibuprofen 400 mg tablet 400 mg PO Q6H PRN (Reason: pain) Qty: 14 0RF ferrous sulfate 325 mg (65 mg iron) tablet 325 mg PO DAILY Qty: 30 0RF benzonatate 200 mg capsule 200 mg PO TID PRN (Reason: cough) Qty: 30 0RF doxycycline hyclate 100 mg tablet 100 mg PO BID Qty: 20 0RF prednisone 20 mg tablet 40 mg PO DAILY Qty: 10 0RF nitrofurantoin monohyd/m-cryst [Macrobid] 100 mg capsule 100 mg PO BID 7 Days Qty: 14 0RF Rx Instructions: must administer with a meal/food ondansetron 4 mg tablet,disintegrating 4 mg PO Q8H Qty: 14 0RF cyclobenzaprine 10 mg tablet 10 mg PO TID PRN (Reason: muscle spasm) Qty: 14 0RF lidocaine 5 % adhesive patch,medicated 1 patch topical DAILY Qty: 30 0RF Rx Instructions: leave on most painful area for up to 12 hrs <Fidel Lee - Last Filed: 05/02/22 14:55>
[2022-05-02 13:22] LABS: Alanine Aminotransferase 13 U/L (0-31); Albumin Level 4.4 g/dL (3.5-5.0); Alkaline Phosphatase 131 U/L (39-117); Anion Gap 17 (12-20); Aspartate Amino Transferase 17 U/L (5-31); Bilirubin Total 0.2 mg/dL (0.0-1.0); Blood Urea Nitrogen 20 mg/dL (9-16); Calcium 9.4 mg/dL (8.4-10.2); Carbon Dioxide 15 mmol/L (22-29); Chloride 111 mmol/L (96-108); Creatinine Clr Calc Pharmacy 47.7; Estimated Glomerular Filt Rate 48; Glucose Random 89 mg/dL (60-115); Sodium 139 mmol/L (135-145); Total Protein 7.3 g/dL (6.5-8.0)
[2022-05-02 13:28] LABS: B Type Natriuretic Peptide < 10 pg/mL (<100)
[2022-05-02 13:34] LABS: Troponin-I High Sensitivity < 3.5 ng/L (<3.5-17.0)
[2022-05-02] MEDS: Ondansetron ODT 4 MG TAB.RAPDIS TRANSLINGU (13:37)
[2022-05-02] MEDS: Cyclobenzaprine HCl 10 MG TABLET PO (13:37)
[2022-05-02 14:54] VITALS: BP 119/79; PULSE 79; RESP 17; TEMP 36.7; O2SAT 94
--- NOTE | 2022-05-02 15:30 | PC.NURSE ---
pt sleeping quietly, RR even and unlabored,
== END 2022-05-02 16:05 | disposition home or self-care (01) ==
PROVIDERS: Physician Assistant Medical; Emergency Provider Emergency Medicine; PCP Internal Medicine
DX: R07.89 Other chest pain (principal); R06.02 Shortness of breath; R10.11 Right upper quadrant pain; Z79.899 Other long term (current) drug therapy
CPT/HCPCS: 36415; 71046; 80053; 83880; 84484; 85025; 93005; 99283; 99284

== ENCOUNTER 2022-05-09 18:26 | Emergency (ER) | payer OTHER, SELFPAY | END 2022-05-10 01:55 | disposition left against medical advice (07) | PROVIDERS: Emergency Provider Emergency Medicine; PCP Internal Medicine | DX: R10.9 Unspecified abdominal pain (principal) | CPT/HCPCS: 99281 ==

== ENCOUNTER 2022-08-03 16:30 | Emergency (ER) | payer OTHER, SELFPAY ==
--- NOTE | ~2022-08-03 | XR_ITS ---
EXAMINATION: XR CHEST CLINICAL INFORMATION: Altered mental status. Cough. COMPARISON: 05/02/2022. TECHNIQUE: Frontal view of the chest was obtained. XR/XR chest 1V FINDINGS/IMPRESSION: The study is limited by low lung volumes and patient body habitus. There has been no significant radiographic change compared with 05/02/2022. The right hemidiaphragm is mildly to moderately. Right basilar linear densities suggest atelectasis and/or fibrotic streaks. The left lung appears clear. No effusion or pneumothorax is appreciated. The cardiac silhouette appears unremarkable. The mediastinum and soft tissues appear normal. Scoliosis.
--- NOTE | ~2022-08-03 | CT_ITS ---
EXAMINATION: CT head/brain wo IV con CLINICAL INFORMATION: Reason for Exam slurred speech, diff ambulating, speech difficulty COMPARISON: CT head without contrast 10/02/2020 TECHNIQUE: Contiguous axial imaging was performed from the skull base to vertex without intravenous contrast. Sagittal and coronal reformatted images were obtained. This CT examination was performed using dose optimization techniques as appropriate, variously including the following: * Automated exposure control * Adjustment of mA and/or kV according to patient size (this includes techniques or standardized protocols for targeted exams where dose is matched to indication/reason for exam; i.e. extremities or head) Use of iterative reconstruction technique DLP: 788.49 mGy-cm FINDINGS: No acute osseous or soft tissue abnormality. The mastoid air cells and visualized portions of the paranasal sinuses are well aerated. There is no evidence of acute intracranial hemorrhage or territorial infarction. No abnormal mass effect or midline shift is seen. Saenz to white matter differentiation is well preserved. No extra-axial fluid collections are identified. No hydrocephalus. No significant volume loss. There is no abnormal attenuation within the brain parenchyma. CT/CT head/brain wo IV con IMPRESSION: No acute intracranial abnormality including hemorrhage, mass effect, hydrocephalus, or acute territorial edematous infarction. .
--- NOTE | ~2022-08-03 | XR_ITS ---
EXAMINATION: XR ABDOMEN KUB CLINICAL INDICATION: Left-sided abdominal discomfort. COMPARISON: CT scan of the abdomen and pelvis dated 12/15/2021. TECHNIQUE: AP view of the abdomen. FINDINGS: There is a nonobstructive bowel gas pattern. Moderate stool seen within the colon. No abnormal calcifications. Surgical clips overlie the right upper quadrant. Mild lumbar levoscoliosis. XR/XR KUB IMPRESSION: Nonobstructive bowel gas pattern. Moderate colonic stool burden.
--- NOTE | 2022-08-03 16:31 | ED_ITS ---
HPI - Neuro Symptoms/Deficit General Chief Complaint: Neuro Symptoms/Deficit <TAYLOR Segura - Last Filed: 08/03/22 16:36> Stated Complaint: symptoms of stroke/dementia <TAYLOR Segura - Last Filed: 08/03/22 16:36> Time Seen by Provider: 08/03/22 16:44 <TAYLOR Segura - Last Filed: 08/03/22 16:36> Source: patient <Berta Hilliard MD - Last Filed: 08/03/22 22:12> Mode of arrival: ambulatory <Berta Hilliard MD - Last Filed: 08/03/22 22:12> History of Present Illness HPI Narrative: 51-year-old female who lives at home by herself reports 1 month of increasing difficulty with walking and states that she has had some speech changes for proximally 1 week denies any recent fever chills but states she has had a persistent cough and states that her friends have been telling her that her texts make no sense. Patient also states that she has had intermittent chest discomfort as well as decrease in appetite due to abdominal pain. Patient does report a history of ulcerative colitis and trigeminal neuralgia on the left. Past medical history of transverse myelitis, personality disorder, celiac disease, depression, PTSD, colitis, left-sided weakness. <Berta Hilliard MD - Last Filed: 08/03/22 22:12> Related Data Home Medications: Previous Rx's Medication Instructions Recorded acetaminophen 500 mg tablet 1,000 mg PO QID PRN fever or pain 10/02/20 (Tylenol Extra Strength) #14 tabs ferrous sulfate 325 mg (65 mg 325 mg PO DAILY Iron deficiency 10/02/20 iron) tablet anemia #30 tabs ibuprofen 400 mg tablet 400 mg PO Q6H PRN pain #14 tabs 10/02/20 benzonatate 200 mg capsule 200 mg PO TID PRN cough #30 caps 10/31/21 doxycycline hyclate 100 mg tablet 100 mg PO BID #20 tabs 10/31/21 prednisone 20 mg tablet 40 mg PO DAILY #10 tabs 10/31/21 nitrofurantoin 100 mg PO BID 7 days #14 caps 12/15/21 monohydrate/macrocrystals 100 mg capsule (Macrobid) ondansetron 4 mg disintegrating 4 mg PO Q8H #14 tabs 12/15/21 tablet cyclobenzaprine 10 mg tablet 10 mg PO TID PRN muscle spasm #14 12/31/21 tabs lidocaine 5 % topical patch 1 patch topical DAILY #30 ea 12/31/21 cyclobenzaprine 5 mg tablet 5 mg PO TID PRN muscle spasm #10 05/02/22 tabs ondansetron 4 mg disintegrating 4 mg PO Q6-8H PRN nausea and 05/02/22 tablet vomiting #7 tabs <TAYLOR Segura - Last Filed: 08/03/22 16:36> Allergies/Adverse Reactions: Allergies Allergy/AdvReac Type Severity Reaction Status Date / Time cephalexin [From Keflex] Allergy Rash Verified 08/03/22 16:32 droperidol Allergy Anaphylaxis Verified 08/03/22 16:32 ketorolac [From Toradol] Allergy Itching Verified 08/03/22 16:32 Penicillins Allergy Rash Verified 08/03/22 16:32 Sulfa (Sulfonamide Allergy Rash Verified 08/03/22 16:32 Antibiotics) <TAYLOR Segura - Last Filed: 08/03/22 16:36> Review of Systems Review of Systems: Pertinent positives and negatives as stated in HPI <Berta Hilliard MD - Last Filed: 08/03/22 22:12> [facility] Past Medical History Source: nursing notes reviewed <Berta Hilliard MD - Last Filed: 08/03/22 22:12> Medical History: Medical History Celiac disease Colitis Left-sided weakness <TAYLOR Segura - Last Filed: 08/03/22 16:36> Surgical History: Surgical History History of cholecystectomy <TAYLOR Segura - Last Filed: 08/03/22 16:36> Social History Social History: Social History Alcohol intake: never Patient Tobacco Use Status: Never used Tobacco Advance Directives: No Advance Directives Information Provided: Yes <TAYLOR Segura - Last Filed: 08/03/22 16:36> Physical Exam Vital Signs: Vital Signs: Last Vital Signs Temp 98.2 F 08/03/22 19:10 Pulse 84 08/03/22 19:10 Resp 12 08/03/22 19:10 BP 141/88 H 08/03/22 19:10 Pulse Ox 97 08/03/22 16:32 O2 Del Method Room Air 08/03/22 19:10 BMI result Body Mass Index 38.6 <TAYLOR Segura - Last Filed: 08/03/22 16:36> Vital Signs: Last Vital Signs Temp 98.2 F 08/03/22 19:10 Pulse 84 08/03/22 19:10 Resp 12 08/03/22 19:10 BP 141/88 H 08/03/22 19:10 Pulse Ox 97 08/03/22 16:32 O2 Del Method Room Air 08/03/22 19:10 BMI result Body Mass Index 38.6 VITAL SIGNS: Reviewed. GENERAL: Well developed, well nourished, in no acute distress. HEAD: Normocephalic/atraumatic EYES: PERRLA, EOMI EARS: Ext canals without abnormality NOSE: Nares patent bilateral OROPHARYNX: no oral lesions noted, posterior pharynx clear, dry mucosa NECK: Supple, no adenopathy LUNGS: Normal breath sounds. No adventitious sounds or accessory muscle use. SpO2<97> CARDIOVASCULAR: Regular rate and rhythm without noted murmurs, no JVD or lower extremity edema. ABDOMEN: Soft, left-sided abdominal discomfort, non-distended with bowel sounds. MUSCULOSKELETAL: No tenderness, deformities, or effusions noted on gross inspection. EXTREMITIES: No cyanosis, clubbing or edema. SKIN: Inspection of the skin reveals no rashes NEUROLOGIC: Alert and oriented x 4. Left-sided weakness at baseline, there is noted right facial mouth droop, no pronator drift <Berta Hilliard MD - Last Filed: 08/03/22 22:12> Course Course Course Narrative: RME: 51 yo female with history of PTSD, migraine headaches, anxiety/depression, transverse myelitis who presents to the ED c/o [place], SOB, difficulty ambulating, slurred speech, not making sense to friends over text/talking, and anorexia x1 week. denies taking AC EKG, Labs, UA, CXR, Head CT ordered Full HPI, ROS and PE to be performed by primary ED provider. <TAYLOR Segura - Last Filed: 08/03/22 16:36> Medical Decision Making Medical Decision Making MDM Narrative: 51-year-old female with significant past medical history of psychiatric diagnoses such as personality disorder, PTSD, will obtain lab work, imaging, EKG to rule out any medically concerning symptoms. 2203: 51-year-old female for whom I have reviewed all investigations and I do not find any results to better explain her concerns regarding change in behavior other than if this is likely a component of her psychiatric disorder. There is no evidence of infection, anemia, electrolyte abnormalities and otherwise lab work appears to be chronically stable. Neurologic exam is consistent with baseline. It is been 2 hours since the KUB and my interpretation of the imaging study is that patient has evidence to suggest constipation which may be contributing to her decreased appetite and abdominal discomfort. I have no clinical suspicion for infectious etiology or obstructive etiology. <Berta Hilliard MD - Last Filed: 08/03/22 22:12> Differential Diagnosis Please see the discussion above. <Berta Hilliard MD - Last Filed: 08/03/22 22:12> Lab Data Please see the discussion above <Berta Hilliard MD - Last Filed: 08/03/22 22:12> Result Diagrams: 08/03/22 17:43 08/03/22 17:43 <TAYLOR Segura - Last Filed: 08/03/22 16:36> Labs: Lab Results 08/03/22 08/03/22 08/03/22 Range/Units 17:43 17:43 17:43 WBC 7.0 (4.8-10.8) X10*3/uL RBC 4.27 (4.20-5.50) X10*6/uL Hgb 12.9 (12.0-16.0) g/dl Hct 41.1 (37.0-47.0) % MCV 96.3 (80.0-98.0) fL MCH 30.2 (27.0-33.0) pg MCHC 31.4 (31.0-35.0) g/dl RDW 13.6 (11.0-16.0) % Plt Count 239 (160-400) X10*3/uL MPV 9.8 (9.4-12.3) fL Immature Gran % (Auto) 0.4 (0.0-0.4) % Neut % (Auto) 63.5 (45-73) % Lymph % (Auto) 24.9 (20-40) % Mitchell % (Auto) 5.7 (2-11) % Eos % (Auto) 4.6 H (0-4) % Baso % (Auto) 0.9 (0-2) % Lymph # (Auto) 1.7 (1.2-4.9) X10*3/uL Mitchell # (Auto) 0.4 (0.1-1.2) X10*3/uL Eos # (Auto) 0.3 (0.0-0.4) X10*3/uL Baso # (Auto) 0.1 (0.0-0.2) X10*3/uL Abs Immat Gran (auto) 0.03 (0.00-0.03) X10*3/uL Absolute Neuts (auto) 4.4 (2.0-8.3) x10*3/uL Absolute Nucleated RBC 0.000 (0.0-0.012) X10*3/uL Nucleated RBC % (auto) 0.0 (0.0-0.2) /100WBC PT (10.0-13.1) SEC INR (0.9-1.1) Sodium 140 (135-145) mmol/L Potassium 3.8 (3.3-5.1) mmol/L Chloride 110 H (96-108) mmol/L Carbon Dioxide 20 L (22-29) mmol/L Anion Gap 14 (12-20) BUN 16 (9-16) mg/dL Creatinine 1.11 (0.5-1.4) mg/dL Estim Creat Clear Calc 50.7 Estimated GFR 52 Random Glucose 103 (60-115) mg/dL Calcium 9.1 (8.4-10.2) mg/dL Magnesium 2.1 (1.6-2.6) mg/dL Total Bilirubin 0.2 (0.0-1.0) mg/dL Direct Bilirubin < 0.2 (0.0-0.5) mg/dL AST 14 (5-31) U/L ALT 14 (0-31) U/L Alkaline Phosphatase 124 H (39-117) U/L Troponin I High Sens 2.8 (<3.5-17.0) ng/L B-Natriuretic Peptide (<100) pg/mL Total Protein 7.0 (6.5-8.0) g/dL Albumin 4.2 (3.5-5.0) g/dL Urine Color Urine Appearance Urine pH (5.0-9.0) Ur Specific [place] (1.005-1.025) Urine Protein (Neg-Trace) mg/dL Urine Glucose (UA) (Negative) mg/dL Urine Ketones (Negative) mg/dL Urine Blood (Negative) Urine Nitrite (Negative) Ur Leukocyte Esterase (Negative) Urine RBC (0-2) /HPF Urine WBC (0-5) /HPF Ur Squamous Epith Cells (0-2) /HPF Urine Bacteria (None Seen) Hyaline Casts (0-2) /LPF 08/03/22 08/03/22 08/03/22 Range/Units 17:43 17:43 20:40 WBC (4.8-10.8) X10*3/uL RBC (4.20-5.50) X10*6/uL Hgb (12.0-16.0) g/dl Hct (37.0-47.0) % MCV (80.0-98.0) fL MCH (27.0-33.0) pg MCHC (31.0-35.0) g/dl RDW (11.0-16.0) % Plt Count (160-400) X10*3/uL MPV (9.4-12.3) fL Immature Gran % (Auto) (0.0-0.4) % Neut % (Auto) (45-73) % Lymph % (Auto) (20-40) % Mitchell % (Auto) (2-11) % Eos % (Auto) (0-4) % Baso % (Auto) (0-2) % Lymph # (Auto) (1.2-4.9) X10*3/uL Mitchell # (Auto) (0.1-1.2) X10*3/uL Eos # (Auto) (0.0-0.4) X10*3/uL Baso # (Auto) (0.0-0.2) X10*3/uL Abs Immat Gran (auto) (0.00-0.03) X10*3/uL Absolute Neuts (auto) (2.0-8.3) x10*3/uL Absolute Nucleated RBC (0.0-0.012) X10*3/uL Nucleated RBC % (auto) (0.0-0.2) /100WBC PT 10.4 (10.0-13.1) SEC INR 0.9 (0.9-1.1) Sodium (135-145) mmol/L Potassium (3.3-5.1) mmol/L Chloride (96-108) mmol/L Carbon Dioxide (22-29) mmol/L Anion Gap (12-20) BUN (9-16) mg/dL Creatinine (0.5-1.4) mg/dL Estim Creat Clear Calc Estimated GFR Random Glucose (60-115) mg/dL Calcium (8.4-10.2) mg/dL Magnesium (1.6-2.6) mg/dL Total Bilirubin (0.0-1.0) mg/dL Direct Bilirubin (0.0-0.5) mg/dL AST (5-31) U/L ALT (0-31) U/L Alkaline Phosphatase (39-117) U/L Troponin I High Sens (<3.5-17.0) ng/L B-Natriuretic Peptide < 10 (<100) pg/mL Total Protein (6.5-8.0) g/dL Albumin (3.5-5.0) g/dL Urine Color Yellow Urine Appearance Cloudy Urine pH 6.5 (5.0-9.0) Ur Specific [place] 1.010 (1.005-1.025) Urine Protein Negative (Neg-Trace) mg/dL Urine Glucose (UA) Negative (Negative) mg/dL Urine Ketones Negative (Negative) mg/dL Urine Blood Negative (Negative) Urine Nitrite Negative (Negative) Ur Leukocyte Esterase Small (1+) H (Negative) Urine RBC 0-2 (0-2) /HPF Urine WBC 0-5 (0-5) /HPF Ur Squamous Epith Cells 0-2 (0-2) /HPF Urine Bacteria None Seen (None Seen) Hyaline Casts 0-2 (0-2) /LPF <TAYLOR Segura - Last Filed: 08/03/22 16:36> Lab Results 08/03/22 08/03/22 08/03/22 Range/Units 17:43 17:43 17:43 WBC 7.0 (4.8-10.8) X10*3/uL RBC 4.27 (4.20-5.50) X10*6/uL Hgb 12.9 (12.0-16.0) g/dl Hct 41.1 (37.0-47.0) % MCV 96.3 (80.0-98.0) fL MCH 30.2 (27.0-33.0) pg MCHC 31.4 (31.0-35.0) g/dl RDW 13.6 (11.0-16.0) % Plt Count 239 (160-400) X10*3/uL MPV 9.8 (9.4-12.3) fL Immature Gran % (Auto) 0.4 (0.0-0.4) % Neut % (Auto) 63.5 (45-73) % Lymph % (Auto) 24.9 (20-40) % Mitchell % (Auto) 5.7 (2-11) % Eos % (Auto) 4.6 H (0-4) % Baso % (Auto) 0.9 (0-2) % Lymph # (Auto) 1.7 (1.2-4.9) X10*3/uL Mitchell # (Auto) 0.4 (0.1-1.2) X10*3/uL Eos # (Auto) 0.3 (0.0-0.4) X10*3/uL Baso # (Auto) 0.1 (0.0-0.2) X10*3/uL Abs Immat Gran (auto) 0.03 (0.00-0.03) X10*3/uL Absolute Neuts (auto) 4.4 (2.0-8.3) x10*3/uL Absolute Nucleated RBC 0.000 (0.0-0.012) X10*3/uL Nucleated RBC % (auto) 0.0 (0.0-0.2) /100WBC PT (10.0-13.1) SEC INR (0.9-1.1) Sodium 140 (135-145) mmol/L Potassium 3.8 (3.3-5.1) mmol/L Chloride 110 H (96-108) mmol/L Carbon Dioxide 20 L (22-29) mmol/L Anion Gap 14 (12-20) BUN 16 (9-16) mg/dL Creatinine 1.11 (0.5-1.4) mg/dL Estim Creat Clear Calc 50.7 Estimated GFR 52 Random Glucose 103 (60-115) mg/dL Calcium 9.1 (8.4-10.2) mg/dL Magnesium 2.1 (1.6-2.6) mg/dL Total Bilirubin 0.2 (0.0-1.0) mg/dL Direct Bilirubin < 0.2 (0.0-0.5) mg/dL AST 14 (5-31) U/L ALT 14 (0-31) U/L Alkaline Phosphatase 124 H (39-117) U/L Troponin I High Sens 2.8 (<3.5-17.0) ng/L B-Natriuretic Peptide (<100) pg/mL Total Protein 7.0 (6.5-8.0) g/dL Albumin 4.2 (3.5-5.0) g/dL Urine Color Urine Appearance Urine pH (5.0-9.0) Ur Specific [place] (1.005-1.025) Urine Protein (Neg-Trace) mg/dL Urine Glucose (UA) (Negative) mg/dL Urine Ketones (Negative) mg/dL Urine Blood (Negative) Urine Nitrite (Negative) Ur Leukocyte Esterase (Negative) Urine RBC (0-2) /HPF Urine WBC (0-5) /HPF Ur Squamous Epith Cells (0-2) /HPF Urine Bacteria (None Seen) Hyaline Casts (0-2) /LPF 08/03/22 08/03/22 08/03/22 Range/Units 17:43 17:43 20:40 WBC (4.8-10.8) X10*3/uL RBC (4.20-5.50) X10*6/uL Hgb (12.0-16.0) g/dl Hct (37.0-47.0) % MCV (80.0-98.0) fL MCH (27.0-33.0) pg MCHC (31.0-35.0) g/dl RDW (11.0-16.0) % Plt Count (160-400) X10*3/uL MPV (9.4-12.3) fL Immature Gran % (Auto) (0.0-0.4) % Neut % (Auto) (45-73) % Lymph % (Auto) (20-40) % Mitchell % (Auto) (2-11) % Eos % (Auto) (0-4) % Baso % (Auto) (0-2) % Lymph # (Auto) (1.2-4.9) X10*3/uL Mitchell # (Auto) (0.1-1.2) X10*3/uL Eos # (Auto) (0.0-0.4) X10*3/uL Baso # (Auto) (0.0-0.2) X10*3/uL Abs Immat Gran (auto) (0.00-0.03) X10*3/uL Absolute Neuts (auto) (2.0-8.3) x10*3/uL Absolute Nucleated RBC (0.0-0.012) X10*3/uL Nucleated RBC % (auto) (0.0-0.2) /100WBC PT 10.4 (10.0-13.1) SEC INR 0.9 (0.9-1.1) Sodium (135-145) mmol/L Potassium (3.3-5.1) mmol/L Chloride (96-108) mmol/L Carbon Dioxide (22-29) mmol/L Anion Gap (12-20) BUN (9-16) mg/dL Creatinine (0.5-1.4) mg/dL Estim Creat Clear Calc Estimated GFR Random Glucose (60-115) mg/dL Calcium (8.4-10.2) mg/dL Magnesium (1.6-2.6) mg/dL Total Bilirubin (0.0-1.0) mg/dL Direct Bilirubin (0.0-0.5) mg/dL AST (5-31) U/L ALT (0-31) U/L Alkaline Phosphatase (39-117) U/L Troponin I High Sens (<3.5-17.0) ng/L B-Natriuretic Peptide < 10 (<100) pg/mL Total Protein (6.5-8.0) g/dL Albumin (3.5-5.0) g/dL Urine Color Yellow Urine Appearance Cloudy Urine pH 6.5 (5.0-9.0) Ur Specific [place] 1.010 (1.005-1.025) Urine Protein Negative (Neg-Trace) mg/dL Urine Glucose (UA) Negative (Negative) mg/dL Urine Ketones Negative (Negative) mg/dL Urine Blood Negative (Negative) Urine Nitrite Negative (Negative) Ur Leukocyte Esterase Small (1+) H (Negative) Urine RBC 0-2 (0-2) /HPF Urine WBC 0-5 (0-5) /HPF Ur Squamous Epith Cells 0-2 (0-2) /HPF Urine Bacteria None Seen (None Seen) Hyaline Casts 0-2 (0-2) /LPF <Berta Hilliard MD - Last Filed: 08/03/22 22:12> Independent Interpretation I performed an independent interpretation of an: EKG <Berta Hilliard MD - Last Filed: 08/03/22 22:12> Interpretation: Normal sinus rhythm, heart rate-88, no STEMI, NV/QRS/QTC is within normal limits. <Berta Hilliard MD - Last Filed: 08/03/22 22:12> Radiology Impression Radiologist Impression: My interpretation is in agreement with radiology's impression of the CT scan imaging, I have been unable to get an official read on the KUB after 2 hours and my interpretation is that there are no acute obstructive symptoms and instead the bowel gas pattern appears to be consistent with constipation. <Berta Hilliard MD - Last Filed: 08/03/22 22:12> Discharge Plan Discharge Clinical Impression: Depression, Constipation <TAYLOR Segura - Last Filed: 08/03/22 16:36> Patient Disposition: Home, Self-Care <TAYLOR Segura - Last Filed: 08/03/22 16:36> Instructions: Constipation (ED), High Fiber Diet (ED), Depression (ED), Fleet Enema (ED) <TAYLOR Segura - Last Filed: 08/03/22 16:36> Additional Instructions: 1. Resume all home medications as prescribed. 2. Recommend that you follow-up with your primary care provider by calling the office on Thursday morning. Return to the ER for any worsening symptoms. <TAYLOR Segura - Last Filed: 08/03/22 16:36> Prescriptions: No Action acetaminophen [Tylenol Extra Strength] 500 mg tablet 1,000 mg PO QID PRN (Reason: fever or pain) Qty: 14 0RF ibuprofen 400 mg tablet 400 mg PO Q6H PRN (Reason: pain) Qty: 14 0RF ferrous sulfate 325 mg (65 mg iron) tablet 325 mg PO DAILY Qty: 30 0RF benzonatate 200 mg capsule 200 mg PO TID PRN (Reason: cough) Qty: 30 0RF doxycycline hyclate 100 mg tablet 100 mg PO BID Qty: 20 0RF prednisone 20 mg tablet 40 mg PO DAILY Qty: 10 0RF nitrofurantoin monohyd/m-cryst [Macrobid] 100 mg capsule 100 mg PO BID 7 Days Qty: 14 0RF Rx Instructions: must administer with a meal/food ondansetron 4 mg tablet,disintegrating 4 mg PO Q8H Qty: 14 0RF cyclobenzaprine 10 mg tablet 10 mg PO TID PRN (Reason: muscle spasm) Qty: 14 0RF lidocaine 5 % adhesive patch,medicated 1 patch topical DAILY Qty: 30 0RF Rx Instructions: leave on most painful area for up to 12 hrs cyclobenzaprine 5 mg tablet 5 mg PO TID PRN (Reason: muscle spasm) Qty: 10 0RF ondansetron 4 mg tablet,disintegrating 4 mg PO Q6-8H PRN (Reason: nausea and vomiting) Qty: 7 0RF <TAYLOR Segura - Last Filed: 08/03/22 16:36> Referrals: Edie Bee MD [Primary Care Provider] - <TAYLOR Segura - Last Filed: 08/03/22 16:36>
[2022-08-03 16:32] VITALS: BP 141/87; PULSE 93; RESP 18; TEMP 36.7; O2SAT 97; BMI 38.6
--- NOTE | 2022-08-03 16:32 | ECG_ITS ---
Test Reason : diff walking Blood Pressure : / mmHG Vent. Rate : 088 BPM Atrial Rate : 088 BPM P-R Int : 152 ms QRS Dur : 084 ms QT Int : 392 ms P-R-T Axes : 030 -01 039 degrees QTc Int : 474 ms Normal sinus rhythm Minimal voltage criteria for LVH, may be normal variant ( R in aVL ) Inferior infarct , age undetermined Nonspecific ST and T wave abnormality Abnormal ECG When compared with ECG of 02-MAY-2022 12:22, No significant change was found Referred By: Kiara Diaz Electronically Signed By:MARYELLEN WHEATLEY
[2022-08-03 17:49] LABS: MANUAL DIFF FLAG NO
[2022-08-03 17:50] LABS: Basophils Absolute Auto 0.1 X10*3/uL (0.0-0.2); Basophils Percent Auto 0.9 % (0-2); Eosinophils Absolute Auto 0.3 X10*3/uL (0.0-0.4); Eosinophils Percent Auto 4.6 % (0-4); Hematocrit 41.1 % (37.0-47.0); Hemoglobin 12.9 g/dl (12.0-16.0); Imm Gran Abs Auto 0.03 X10*3/uL (0.00-0.03); Imm Gran Pct Auto 0.4 % (0.0-0.4); Lymphocytes Absolute Auto 1.7 X10*3/uL (1.2-4.9); Lymphocytes Percent Auto 24.9 % (20-40); Mean Corpuscular HGB Conc 31.4 g/dl (31.0-35.0); Mean Corpuscular Hemoglobin 30.2 pg (27.0-33.0); Mean Corpuscular Volume 96.3 fL (80.0-98.0); Mean Platelet Volume 9.8 fL (9.4-12.3); Monocytes Absolute Auto 0.4 X10*3/uL (0.1-1.2); Monocytes Percent Auto 5.7 % (2-11); Neutrophils Absolute Auto 4.4 x10*3/uL (2.0-8.3); Neutrophils Percent Auto 63.5 % (45-73); Platelet Count 239 X10*3/uL (160-400); Red Blood Count 4.27 X10*6/uL (4.20-5.50); Red Cell Distribution Width 13.6 % (11.0-16.0)
[2022-08-03 17:57] LABS: INTERNATIONAL NORM RATIO 0.9 (0.9-1.1); Prothrombin Time 10.4 SEC (10.0-13.1)
[2022-08-03 18:10] LABS: Alanine Aminotransferase 14 U/L (0-31); Albumin Level 4.2 g/dL (3.5-5.0); Alkaline Phosphatase 124 U/L (39-117); Anion Gap 14 (12-20); Aspartate Amino Transferase 14 U/L (5-31); B Type Natriuretic Peptide < 10 pg/mL (<100); Bilirubin Direct < 0.2 mg/dL (0.0-0.5); Bilirubin Total 0.2 mg/dL (0.0-1.0); Blood Urea Nitrogen 16 mg/dL (9-16); Calcium 9.1 mg/dL (8.4-10.2); Carbon Dioxide 20 mmol/L (22-29); Chloride 110 mmol/L (96-108); Creatinine Clr Calc Pharmacy 50.7; Estimated Glomerular Filt Rate 52; Glucose Random 103 mg/dL (60-115); Magnesium 2.1 mg/dL (1.6-2.6); Potassium 3.8 mmol/L (3.3-5.1); Sodium 140 mmol/L (135-145)
[2022-08-03 18:16] LABS: Troponin-I High Sensitivity 2.8 ng/L (<3.5-17.0)
[2022-08-03 19:10] VITALS: BP 141/88; PULSE 84; RESP 12; TEMP 36.8
[2022-08-03 20:51] LABS: Appearance Urine Cloudy; Color Urine Yellow; Glucose Urine UA Negative (Negative); Leukocyte Esterase Urine Small (1+) (Negative); Nitrite Urine Negative (Negative); PH 6.5 (5.0-9.0); UMIC TRIGGER UACC YES; Urine Blood Negative (Negative); Urine Ketones Negative (Negative); Urine Protein Negative (Neg-Trace)
[2022-08-03 21:56] LABS: Bacteria Urine None Seen (None Seen); Hyaline Casts Urine 0-2 /LPF (0-2); RBC Urine 0-2 /HPF (0-2); Squamous Epithelial Cell Urine 0-2 /HPF (0-2); UACC Culture Trigger YES; WBC Urine 0-5 /HPF (0-5)
== END 2022-08-03 23:06 | disposition home or self-care (01) ==
PROVIDERS: Physician Assistant; Emergency Provider Student in an Organized Health Care Education/Training Program; PCP Internal Medicine
DX: F33.1 Major depressive disorder, recurrent, moderate (principal); K59.00 Constipation, unspecified; R51.9 Headache, unspecified; R06.02 Shortness of breath; F03.90 Unspecified dementia, unspecified severity, without behavioral disturbance, psychotic disturbance, mood disturbance, and anxiety; R94.31 Abnormal electrocardiogram [ECG] [EKG]; R05.9 Cough, unspecified; R26.2 Difficulty in walking, not elsewhere classified; Z79.899 Other long term (current) drug therapy
CPT/HCPCS: 36415; 70450; 71045; 74018; 80048; 80076; 81001; 83735; 83880; 84484; 85025; 85610; 87086; 93005; 99284

== ENCOUNTER 2022-08-23 12:12 | Emergency (ER) | payer OTHER, SELFPAY ==
[2022-08-23 12:38] VITALS: BP 136/89; PULSE 95; RESP 20; TEMP 36.9; O2SAT 97; BMI 38.6
--- NOTE | 2022-08-23 12:40 | ED_ITS ---
HPI - General Adult General Chief complaint: Abdominal Pain Stated complaint: abd pain Source: patient Mode of arrival: wheelchair Limitations: no limitations History of Present Illness HPI narrative: Patient is a 51 year old assigned female at with a history of depression, anxiety, and PTSD presenting to the emergency department today with abdominal pain. Patient states that over the last 5 days she has had nausea and abdominal pain. Patient denies any dizziness, lightheadedness, fever, chills, blurry vision, double vision, loss of vision, chest pain, difficulty breathing, shortness of breath, back pain, night sweats, pain with urination, increased urinary frequency, increased urinary urgency, blood in her urine or stool, syncope or a near syncopal episode, recent trauma or falls, bowel incontinence, bladder incontinence, bowel retention, bladder retention, or any other complaints at this time. Onset (ago): day(s) (5) Location: abdomen Severity: mild Severity scale (1-10): 2 Relieving factors: none Exacerbating factors: none Associated symptoms: nausea/vomiting Treatments prior to arrival: none Related Data Previous Rx's Medication Instructions Recorded acetaminophen 500 mg tablet 1,000 mg PO QID PRN fever or pain 10/02/20 (Tylenol Extra Strength) #14 tabs ferrous sulfate 325 mg (65 mg 325 mg PO DAILY Iron deficiency 10/02/20 iron) tablet anemia #30 tabs ibuprofen 400 mg tablet 400 mg PO Q6H PRN pain #14 tabs 10/02/20 benzonatate 200 mg capsule 200 mg PO TID PRN cough #30 caps 10/31/21 doxycycline hyclate 100 mg tablet 100 mg PO BID #20 tabs 10/31/21 prednisone 20 mg tablet 40 mg PO DAILY #10 tabs 10/31/21 nitrofurantoin 100 mg PO BID 7 days #14 caps 12/15/21 monohydrate/macrocrystals 100 mg capsule (Macrobid) ondansetron 4 mg disintegrating 4 mg PO Q8H #14 tabs 12/15/21 tablet cyclobenzaprine 10 mg tablet 10 mg PO TID PRN muscle spasm #14 12/31/21 tabs lidocaine 5 % topical patch 1 patch topical DAILY #30 ea 12/31/21 cyclobenzaprine 5 mg tablet 5 mg PO TID PRN muscle spasm #10 05/02/22 tabs ondansetron 4 mg disintegrating 4 mg PO Q6-8H PRN nausea and 05/02/22 tablet vomiting #7 tabs Allergies Allergy/AdvReac Type Severity Reaction Status Date / Time cephalexin [From Keflex] Allergy Rash Verified 08/03/22 16:32 droperidol Allergy Anaphylaxis Verified 08/03/22 16:32 ketorolac [From Toradol] Allergy Itching Verified 08/03/22 16:32 Penicillins Allergy Rash Verified 08/03/22 16:32 Sulfa (Sulfonamide Allergy Rash Verified 08/03/22 16:32 Antibiotics) Review of Systems Constitutional: Constitutional: Reports no additional constitutional complaints, Denies chills, Denies fever(s) and Denies night sweats Eyes: Eyes: Reports no additional eye complaints, Denies blurry vision, Denies change in vision, Denies diplopia, Denies eye discharge, Denies loss of vision and Denies eye pain ENT: Denies dizziness Cardiovascular: Cardiovascular: Reports no additional cardiovascular complaints, Denies chest pain, Denies lightheadedness, Denies Loss of Consciousness and Denies dyspnea Respiratory: Respiratory: Reports no additional respiratory complaints and Denies dyspnea Gastrointestinal: Gastrointestinal: Reports no additional gastrointestinal complaints, Reports abdominal pain, Denies melena, Denies hematochezia, Denies change in bowel habits, Denies change in stool character, Reports nausea and Reports vomiting Genitourinary: Genitourinary: Denies hematuria, Denies urinary frequency, Denies dysuria, Denies urinary incontinence, Denies urinary hesitancy and Denies urinary urgency Musculoskeletal: Musculoskeletal: Reports no additional musculoskeletal complaints, Denies numbness and Denies tingling Neurologic: Denies dizziness, Denies loss of vision, Denies numbness and Denies tingling Psychiatric: Psychiatric: Reports no additional psychiatric complaints Endocrine: Endocrine: Reports no additional endocrine complaints Hematologic/Lymphatic: Hematologic/Lymphatic: Reports no additional hematologic/lymphatic complaints Allergic/Immunologic: Allergic/Immunologic: Reports no additional allergic/immunologic complaints PMFSH Past Medical History Attestation statement: The following information was validated with the patient. Source: old records reviewed and nursing notes reviewed Medical History Celiac disease Colitis Left-sided weakness Surgical History History of cholecystectomy Social History Social History Alcohol intake: never Patient Tobacco Use Status: Never used Tobacco Advance Directives: No Physical Exam ED Vital Signs: Vital Signs - 24 hr 08/23/22 12:38 Temperature 98.5 F Pulse Rate 95 Respiratory Rate 20 Blood Pressure 136/89 Pulse Oximetry 97 Oxygen Delivery Method Room Air BMI result Body Mass Index 38.6 Const General: cooperative, no acute distress, alert and awake Nutritional Appearance: well nourished Orientation/consciousness: patient oriented x3 Limitations: no limitations HENMT Head: Yes normal to inspection and Yes atraumatic Ears: hearing grossly normal bilaterally and external ears normal General nose exam: Normal external nose present, no nasal discharge noted and no epistaxis Face and sinus: Yes normal facial exam, No abrasion and No laceration Mouth: Normal oral and palatal mucosa present, no drooling and no muffled voice Eyes General: appearance normal, both eyes and all related structures Periorbital: periorbital findings normal Eyelids: Yes eyelids normal Conjunctivae: conjunctivae normal Pupils: Equal, round and reactive pupils present EOM: EOMs intact bilaterally Neck Neck: Yes normal visual inspection, Yes full ROM and Yes no lymphadenopathy Chest Chest palpation & inspection: normal inspection of the chest Resp Effort & Inspection: normal respiratory effort and able to speak in complete sentences Auscultation: clear to auscultation bilaterally Cardio Rate: regular rate Rhythm: regular rhythm GI Inspection: Yes normal to inspection Palpation (GI): Soft to palpation, not firm, nontender and no guarding Neuro General: patient oriented x3 and moves all extremities Cranial nerves: Yes Equal, round and reactive pupils present Cognition (Neuro): normal cognition Motor exam (neuro): 5/5 motor strength present throughout Sensory Exam: Normal double simultaneous stimulation for sensation Coordination: [id number] test normal Extrem General: Yes normal to inspection, Yes full ROM and Yes capillary refill normal Psych Appearance: grossly normal Mental Status: mental status grossly normal Affect: normal affect Attitude: cooperative Thought process: Normal thought process present Thought content: Normal thought content present Insight: Good insight present (Psych) Course Course Course Narrative: RME performed by Nydia Duran PA-C. Patient is a 51 year old assigned female at presenting to the emergency department with abdominal pain. Labs ordered. Patient placed back in the waiting room pending room availability and results. Medical Decision Making Medical Decision Making MDM Narrative: Patient is a 51 year old assigned female at with a history of anxiety, depression, and PTSD presenting to the emergency department today with abdominal pain, nausea, and vomiting. Patient's physical exam was unremarkable. Patient eloped from the department before having any lab work drawn or reviewing her physical exam findings. Differential Diagnosis Differential Diagnoses: The differential diagnosis associated with the presentat ion includes abdominal pain Discharge Plan Discharge Clinical Impression: Abdominal pain Patient Disposition: Elopement Prescriptions: No Action acetaminophen [Tylenol Extra Strength] 500 mg tablet 1,000 mg PO QID PRN (Reason: fever or pain) Qty: 14 0RF ibuprofen 400 mg tablet 400 mg PO Q6H PRN (Reason: pain) Qty: 14 0RF ferrous sulfate 325 mg (65 mg iron) tablet 325 mg PO DAILY Qty: 30 0RF benzonatate 200 mg capsule 200 mg PO TID PRN (Reason: cough) Qty: 30 0RF doxycycline hyclate 100 mg tablet 100 mg PO BID Qty: 20 0RF prednisone 20 mg tablet 40 mg PO DAILY Qty: 10 0RF nitrofurantoin monohyd/m-cryst [Macrobid] 100 mg capsule 100 mg PO BID 7 Days Qty: 14 0RF Rx Instructions: must administer with a meal/food ondansetron 4 mg tablet,disintegrating 4 mg PO Q8H Qty: 14 0RF cyclobenzaprine 10 mg tablet 10 mg PO TID PRN (Reason: muscle spasm) Qty: 14 0RF lidocaine 5 % adhesive patch,medicated 1 patch topical DAILY Qty: 30 0RF Rx Instructions: leave on most painful area for up to 12 hrs cyclobenzaprine 5 mg tablet 5 mg PO TID PRN (Reason: muscle spasm) Qty: 10 0RF ondansetron 4 mg tablet,disintegrating 4 mg PO Q6-8H PRN (Reason: nausea and vomiting) Qty: 7 0RF Interventions: ED Discharge Assessment Last Done: 08/23/22 13:41 ED Discharge Assessment Last Done: 08/23/22 13:41 Discharge Date/Time: 08/23/22 14:18
--- NOTE | 2022-08-23 12:45 | PC.NURSE ---
pt appears to have abruptly gotten up from wheelchair and ambulated out of waiting room in to white car that drove away.
== END 2022-08-23 14:18 | disposition left against medical advice (07) ==
LOC: HO.ED 14:16
PROVIDERS: Emergency Provider Emergency Medicine
DX: R10.9 Unspecified abdominal pain (principal); Z53.21 Procedure and treatment not carried out due to patient leaving prior to being seen by health care provider
CPT/HCPCS: 99281; 99282

== ENCOUNTER 2022-08-25 11:45 | Emergency (ER) | payer OTHER, SELFPAY ==
--- NOTE | ~2022-08-25 | CT_ITS ---
EXAMINATION: CT ABDOMEN AND PELVIS WITH CONTRAST CLINICAL INFORMATION: Right-sided abdominal pain, constipation x18 days. COMPARISON: CT GI bleed 12/15/2021 TECHNIQUE: Multidetector volumetric images were obtained from the superior aspect of the liver through the pubic symphysis following administration 85 mL of Omnipaque 350 intravenous contrast. Sagittal and coronal reformatted images were obtained on the technologist's workstation. Oral contrast: No This CT examination was performed using dose optimization techniques as appropriate, variously including the following: *Automated exposure control *Adjustment of mA and/or kV according to patient size (this includes techniques or standardized protocols for targeted exams where dose is matched to indication/reason for exam; i.e. extremities or head) *Use of iterative reconstruction technique DLP: 686 mGy-cm FINDINGS: LUNG BASES: There is mild right lower lobe atelectatic changes. LIVER, GALLBLADDER, AND BILIARY TREE: The liver is normal in size, shape, and attenuation. No focal hepatic lesion or biliary ductal dilatation is present. The gallbladder has been surgically removed. PANCREAS: Unremarkable. SPLEEN: Unremarkable. ADRENAL GLANDS: Unremarkable. KIDNEYS AND URETERS: The kidneys are normal in size, shape, and attenuation. No hydronephrosis, hydroureter, or calculi seen. No perinephric stranding. BLADDER: Unremarkable. GASTROINTESTINAL TRACT: There is large amount of stool seen in the colon without significant distention. Small bowel loops are normal caliber. The appendix is normal caliber. The appendix was visualized on previous exam 12/15/2021 and is unchanged. A floppy cecum is noted. The stomach is nondistended no inflammatory process, free air or free fluid seen. ABDOMINAL WALL: No significant hernia is appreciated. LYMPH NODES: There are small shotty subcentimeter lymph nodes in the mesentery and retroperitoneum VASCULAR: Unremarkable. PELVIC VISCERA: Unremarkable. OSSEOUS STRUCTURES: No aggressive lytic or sclerotic process seen. There is mild levoscoliosis dorsolumbar spine. No aggressive lytic or sclerotic process seen. CT/CT abdomen pelvis w IV con IMPRESSION: Moderate to significant constipation. No obstruction. Fleischner guidelines were followed.
[2022-08-25 11:52] VITALS: BP 98/70; PULSE 86; RESP 17; TEMP 36.6; O2SAT 99; BMI 38.6
--- NOTE | 2022-08-25 11:54 | ED.GENADULT ---
HPI - General Adult General Chief complaint: Abdominal Pain Stated complaint: R side abd pain Time Seen by Provider: 08/25/22 12:12 Source: patient Mode of arrival: ambulatory Limitations: no limitations History of Present Illness MD complaint: Abdominal Pain Onset (ago): day(s) (2) Location: abdomen Radiation: non-radiation Severity: severe Quality: aching Pain Consistency: constant Relieving factors: immobilization Exacerbating factors: movement Associated symptoms: nausea/vomiting Related Data Previous Rx's Medication Instructions Recorded acetaminophen 500 mg tablet 1,000 mg PO QID PRN fever or pain 10/02/20 (Tylenol Extra Strength) #14 tabs ferrous sulfate 325 mg (65 mg 325 mg PO DAILY Iron deficiency 10/02/20 iron) tablet anemia #30 tabs ibuprofen 400 mg tablet 400 mg PO Q6H PRN pain #14 tabs 10/02/20 benzonatate 200 mg capsule 200 mg PO TID PRN cough #30 caps 10/31/21 doxycycline hyclate 100 mg tablet 100 mg PO BID #20 tabs 10/31/21 prednisone 20 mg tablet 40 mg PO DAILY #10 tabs 10/31/21 nitrofurantoin 100 mg PO BID 7 days #14 caps 12/15/21 monohydrate/macrocrystals 100 mg capsule (Macrobid) ondansetron 4 mg disintegrating 4 mg PO Q8H #14 tabs 12/15/21 tablet cyclobenzaprine 10 mg tablet 10 mg PO TID PRN muscle spasm #14 12/31/21 tabs lidocaine 5 % topical patch 1 patch topical DAILY #30 ea 12/31/21 cyclobenzaprine 5 mg tablet 5 mg PO TID PRN muscle spasm #10 05/02/22 tabs ondansetron 4 mg disintegrating 4 mg PO Q6-8H PRN nausea and 05/02/22 tablet vomiting #7 tabs glycerin (adult) 1 supp TN BID PRN constipation #25 08/25/22 ea magnesium citrate (Citrate of 150 ml PO BID PRN constipation 08/25/22 Magnesia oral) #1,500 mL sennosides 8.6 mg-docusate sodium 1 tab-cap PO BEDTIME #14 tabs 08/25/22 50 mg tablet (Senokot-S) Allergies Allergy/AdvReac Type Severity Reaction Status Date / Time cephalexin [From Keflex] Allergy Rash Verified 08/03/22 16:32 droperidol Allergy Anaphylaxis Verified 08/03/22 16:32 Penicillins Allergy Rash Verified 08/03/22 16:32 Sulfa (Sulfonamide Allergy Rash Verified 08/03/22 16:32 Antibiotics) Review of Systems Review of Systems: CONSTITUTIONAL: Denies weight loss, fever and chills. HEENT: Denies changes in vision and hearing. RESPIRATORY: Denies SOB and cough. CV: Denies palpitations no CP. GI: + abd pain n/v : Denies dysuria and urinary frequency. Decreased Urination MSK: Denies myalgia and joint pain. SKIN: Denies rash and pruritus. NEUROLOGICAL: Denies headache and syncope. PSYCHIATRIC: Denies recent changes in mood. Denies anxiety and depression. All other ROS are negative unless in HPI PMFSH Past Medical History Medical History Celiac disease Colitis Left-sided weakness Surgical History History of cholecystectomy Social History Social History Alcohol intake: never Patient Tobacco Use Status: Never used Tobacco Smoked in Last 30 Days: No Use of substances other than those prescribed or required for medical reasons: No Advance Directives: Yes Advance Directives Information Provided: Yes Advance Directives on File: No Physical Exam ED Vital Signs: Vital Signs - 24 hr 08/25/22 11:52 08/25/22 12:16 08/25/22 14:39 Temperature 98 F 98.4 F 98.1 F Pulse Rate 86 96 87 Respiratory Rate 17 18 16 Blood Pressure 98/70 123/85 113/85 Pulse Oximetry 99 96 97 Oxygen Delivery Method Room Air Room Air Room Air BMI result Body Mass Index 38.6 GEN: Well developed, no acute distress, alert, oriented HEENT: Normocephalic, atraumatic, normal external ears, nose appears normal, no oropharyngeal edema or exudates Eyes: Normal to appearance Neck: Supple, no lymphadenopathy Respiratory: Talks in complete sentences, no respiratory distress, clear to auscultation bilaterally Cardiovascular: Regular rate and rhythm, no murmurs rubs or gallops Abdomen: Right sided abdominal tendenress with guarding no rebound, negative Freire's sign Back: No CVA tenderness Extremities: No clubbing cyanosis or edema Neurologic: No focal neurologic deficits, cranial nerves 2-12 intact, strength is 5/5 bilaterally Skin: No rash Course Course Course Narrative: RME: 51 yold female with pmh of cholecysitis presents to the ED for RIght sided abdominal pain for 3 days. patient has not had bowel movements in 18 days. patient states passing gas. not urinated since yesterday, but has no urger to urinate. positive for RUQ and RLQ pain on palpation. labs and abdominal CT scan ordered Reevaluation(s) Reevaluation #1: Discussed results. Patient has constipation. There are no other acute findings. Patient will go home and attempt a more aggressive regimen the MiraLax. She return for worsening or progressive symptoms. She already has an appointment with a new GI specialist this coming week. Time: 15:11 Medications Administered Discontinued Medications Generic Name Dose Route Start Last Admin Trade Name Freq PRN Reason Stop Dose Admin Iohexol 100 ml 08/25/22 13:43 08/25/22 13:44 Iohexol 350 Mg/Ml 100 Ml Infus..Btl IV 08/25/22 13:44 85 ml ONCE ONE Administration Morphine Sulfate 4 mg 08/25/22 13:09 08/25/22 13:41 Morphine Sulfate 4 Mg/Ml Cartridge IVPUSH 08/25/22 13:10 4 mg ONCE ONE Administration Protocol Ondansetron HCl 4 mg 08/25/22 13:09 08/25/22 13:42 Ondansetron Hcl 4 Mg/2 Ml Vial IVPUSH 08/25/22 13:10 4 mg ONCE ONE Administration Medical Decision Making Medical Decision Making [facility] Narrative: 51-year-old female presents with right-sided abdominal pain. She has tenderness, guarding no rebound on examination. Differential diagnosis could include biliary, colitis, diverticulitis, appendicitis, renal colic dysmotility, bacterial overgrowth. Patient will CT scan, laboratory analysis, analgesia, nausea medicine and frequent re-evaluation. Differential Diagnosis Right-sided abdominal pain Admission/Observation Consideration of admission/observation: Escalation of care including admission/observation considered Lab Data [facility] Lab Attestation statement: I reviewed the patient's lab results. 08/25/22 12:09 08/25/22 12:09 Labs: Lab Results 08/25/22 08/25/22 08/25/22 Range/Units 12:09 12:09 12:09 WBC 7.5 (4.8-10.8) X10*3/uL RBC 4.27 (4.20-5.50) X10*6/uL Hgb 13.2 (12.0-16.0) g/dl Hct 41.1 (37.0-47.0) % MCV 96.3 (80.0-98.0) fL MCH 30.9 (27.0-33.0) pg MCHC 32.1 (31.0-35.0) g/dl RDW 13.6 (11.0-16.0) % Plt Count 235 (160-400) X10*3/uL MPV 9.9 (9.4-12.3) fL Immature Gran % (Auto) 0.3 (0.0-0.4) % Neut % (Auto) 69.9 (45-73) % Lymph % (Auto) 18.8 L (20-40) % [place] % (Auto) 5.4 (2-11) % Eos % (Auto) 5.3 H (0-4) % Baso % (Auto) 0.3 (0-2) % Lymph # (Auto) 1.4 (1.2-4.9) X10*3/uL [place] # (Auto) 0.4 (0.1-1.2) X10*3/uL Eos # (Auto) 0.4 (0.0-0.4) X10*3/uL Baso # (Auto) 0.0 (0.0-0.2) X10*3/uL Abs Immat Gran (auto) 0.02 (0.00-0.03) X10*3/uL Absolute Neuts (auto) 5.3 (2.0-8.3) x10*3/uL Absolute Nucleated RBC 0.000 (0.0-0.012) X10*3/uL Nucleated RBC % (auto) 0.0 (0.0-0.2) /100WBC PT 11.4 (10.0-13.1) SEC INR 1.0 (0.9-1.1) APTT 37.0 H (26.0-36.4) SEC Sodium 138 (135-145) mmol/L Potassium 3.9 (3.3-5.1) mmol/L Chloride 113 H (96-108) mmol/L Carbon Dioxide 18 L (22-29) mmol/L Anion Gap 11 L (12-20) BUN 22 H (9-16) mg/dL Creatinine 1.18 (0.5-1.4) mg/dL Estim Creat Clear Calc 47.7 Estimated GFR 48 Random Glucose 103 (60-115) mg/dL Calcium 9.1 (8.4-10.2) mg/dL Total Bilirubin 0.3 (0.0-1.0) mg/dL AST 17 (5-31) U/L ALT 12 (0-31) U/L Alkaline Phosphatase 101 (39-117) U/L Total Protein 7.1 (6.5-8.0) g/dL Albumin 4.1 (3.5-5.0) g/dL Lipase 20 (8-78) U/L Beta HCG, Quant < 2 mIU/mL Independent Interpretation I performed an independent interpretation of an: CT Scan Radiology Impression Discussion of test interpretation with radiology: I have reviewed the radiologist's reading. Tests considered The following testing was considered but not selected: Ultrasound abdomen Prescription Management I considered prescription management with: Pain Medication Discharge Plan Discharge Clinical Impression: Abdominal pain, Constipation Patient Disposition: Home, Self-Care Instructions: Constipation (DC), Abdominal Pain (ED) Additional Instructions: For constipation: 1) Drink 2 liters water per day 2) continue fiber diet 3) Magnesium citrate 150 ml twice a day until you start passing stool 4) Continue Miramax twice a day 5) Senokot S 2 tablets daily 6) Glycerin Suppositories twice daily as needed Follow up with your new GI specialist this week as scheduled Prescriptions: New magnesium citrate [Citrate of Magnesia] Solution 150 ml PO BID PRN (Reason: constipation) Qty: 1500 0RF sennosides-docusate sodium [Senokot-S] 8.6-50 mg tablet 1 tab-cap PO BEDTIME Qty: 14 0RF glycerin (adult) Suppository 1 supp TN BID PRN (Reason: constipation) Qty: 25 0RF No Action acetaminophen [Tylenol Extra Strength] 500 mg tablet 1,000 mg PO QID PRN (Reason: fever or pain) Qty: 14 0RF ibuprofen 400 mg tablet 400 mg PO Q6H PRN (Reason: pain) Qty: 14 0RF ferrous sulfate 325 mg (65 mg iron) tablet 325 mg PO DAILY Qty: 30 0RF benzonatate 200 mg capsule 200 mg PO TID PRN (Reason: cough) Qty: 30 0RF doxycycline hyclate 100 mg tablet 100 mg PO BID Qty: 20 0RF prednisone 20 mg tablet 40 mg PO DAILY Qty: 10 0RF nitrofurantoin monohyd/m-cryst [Macrobid] 100 mg capsule 100 mg PO BID 7 Days Qty: 14 0RF Rx Instructions: must administer with a meal/food ondansetron 4 mg tablet,disintegrating 4 mg PO Q8H Qty: 14 0RF cyclobenzaprine 10 mg tablet 10 mg PO TID PRN (Reason: muscle spasm) Qty: 14 0RF lidocaine 5 % adhesive patch,medicated 1 patch topical DAILY Qty: 30 0RF Rx Instructions: leave on most painful area for up to 12 hrs cyclobenzaprine 5 mg tablet 5 mg PO TID PRN (Reason: muscle spasm) Qty: 10 0RF ondansetron 4 mg tablet,disintegrating 4 mg PO Q6-8H PRN (Reason: nausea and vomiting) Qty: 7 0RF Interventions: ED Discharge Assessment Last Done: 08/25/22 15:18 Discharge Date/Time: 08/25/22 15:20
[2022-08-25 12:16] VITALS: BP 123/85; PULSE 96; RESP 18; TEMP 36.9; O2SAT 96
[2022-08-25 12:16] LABS: MANUAL DIFF FLAG NO
[2022-08-25 12:17] LABS: Basophils Percent Auto 0.3 % (0-2); Eosinophils Absolute Auto 0.4 X10*3/uL (0.0-0.4); Eosinophils Percent Auto 5.3 % (0-4); Hematocrit 41.1 % (37.0-47.0); Hemoglobin 13.2 g/dl (12.0-16.0); Imm Gran Abs Auto 0.02 X10*3/uL (0.00-0.03); Imm Gran Pct Auto 0.3 % (0.0-0.4); Lymphocytes Absolute Auto 1.4 X10*3/uL (1.2-4.9); Lymphocytes Percent Auto 18.8 % (20-40); Mean Corpuscular HGB Conc 32.1 g/dl (31.0-35.0); Mean Corpuscular Hemoglobin 30.9 pg (27.0-33.0); Mean Corpuscular Volume 96.3 fL (80.0-98.0); Mean Platelet Volume 9.9 fL (9.4-12.3); Monocytes Absolute Auto 0.4 X10*3/uL (0.1-1.2); Monocytes Percent Auto 5.4 % (2-11); Neutrophils Absolute Auto 5.3 x10*3/uL (2.0-8.3); Neutrophils Percent Auto 69.9 % (45-73); Platelet Count 235 X10*3/uL (160-400); Red Blood Count 4.27 X10*6/uL (4.20-5.50); Red Cell Distribution Width 13.6 % (11.0-16.0); White Blood Count 7.5 X10*3/uL (4.8-10.8)
--- NOTE | 2022-08-25 12:19 | PC.NURSE ---
Alert and oriented. States yesterday she had sudden onset right sidded abdominal pain. States came to Er last night but left because she didnt want to wait. States last bm was 18 weeks ago. Abdomen soft but tender on right side. Positive bowel sounds x 4. Denies apin with urination but states she had not urinated since yesterday., States has not eaten great that last two days. Denies chest pain, states she has had SOB for 3-4 years. No edema noted.
[2022-08-25 12:22] LABS: Prothrombin Time 11.4 SEC (10.0-13.1)
[2022-08-25 12:36] LABS: Alanine Aminotransferase 12 U/L (0-31); Albumin Level 4.1 g/dL (3.5-5.0); Alkaline Phosphatase 101 U/L (39-117); Anion Gap 11 (12-20); Aspartate Amino Transferase 17 U/L (5-31); Bilirubin Total 0.3 mg/dL (0.0-1.0); Blood Urea Nitrogen 22 mg/dL (9-16); Calcium 9.1 mg/dL (8.4-10.2); Carbon Dioxide 18 mmol/L (22-29); Chloride 113 mmol/L (96-108); Creatinine Clr Calc Pharmacy 47.7; Estimated Glomerular Filt Rate 48; Glucose Random 103 mg/dL (60-115); Lipase 20 U/L (8-78); Potassium 3.9 mmol/L (3.3-5.1); Sodium 138 mmol/L (135-145); Total Protein 7.1 g/dL (6.5-8.0)
[2022-08-25 12:41] LABS: HCG Quantitative < 2 mIU/mL
[2022-08-25] MEDS: Morphine Sulfate 4 MG/ML CARTRIDGE IVPUSH (13:41)
[2022-08-25] MEDS: ondansetron HCL 4 MG/2 ML VIAL IVPUSH (13:42)
[2022-08-25] MEDS: iohexoL 350 MG/ML 100 ML INFUS..BTL IV (13:44)
--- NOTE | 2022-08-25 13:46 | PC.NURSE ---
Returned from cat scan and mediated per orders.
[2022-08-25 14:39] VITALS: BP 113/85; PULSE 87; RESP 16; TEMP 36.7; O2SAT 97
--- NOTE | 2022-08-25 15:20 | PC.NURSE ---
Alert and oriented. States she no longer has any pain. Reviewed discharge instructions with patient who verbalized understanding
== END 2022-08-25 15:20 | disposition home or self-care (01) ==
PROVIDERS: Physician Assistant; Emergency Provider Emergency Medicine; PCP Internal Medicine
DX: K59.00 Constipation, unspecified (principal); R10.13 Epigastric pain; Z79.899 Other long term (current) drug therapy
CPT/HCPCS: 36415; 74177; 80053; 83690; 84702; 85025; 85610; 85730; 96374; 96375; 99284; J2270; J2405; Q9967

== ENCOUNTER 2022-09-02 12:38 | Emergency (ER) | payer OTHER, SELFPAY | END 2022-09-02 13:00 | disposition left against medical advice (07) | PROVIDERS: Emergency Provider Emergency Medicine; PCP Internal Medicine | DX: R10.9 Unspecified abdominal pain (principal) ==

== ENCOUNTER 2022-09-11 11:00 | Emergency (ER) | payer OTHER, SELFPAY ==
--- NOTE | ~2022-09-11 | XR_ITS ---
EXAMINATION: XR ABDOMEN KUB CLINICAL INDICATION: Abdominal pain. Constipation. COMPARISON: 08/25/2022 TECHNIQUE: AP view of the abdomen. FINDINGS: Nonobstructive bowel gas pattern. No dilated loops of bowel. Gas and stool throughout the colon with moderate diffuse colonic stool burden. This is greatest in the descending colon. Elevated right hemidiaphragm. The lung bases appear clear. Right upper quadrant surgical clips. Levoscoliosis of the lumbar spine. XR/XR KUB IMPRESSION: Moderate colonic stool burden, greatest in the descending colon.
--- NOTE | 2022-09-11 11:22 | ED.ABDPAIN ---
HPI - Abdominal Pain General Chief Complaint: Abdominal Pain Stated Complaint: abd pain Time Seen by Provider: 09/11/22 14:22 Source: patient Mode of arrival: ambulatory Limitations: no limitations History of Present Illness HPI narrative: Patient is a 51 year old female with a history of migraine headache, anxiety, depression, PTSD, celiac disease and personality disorder presenting today for 4 day history of abdominal pain associated with nausea and vomiting. She denies any precipitating factors. She describes pain as sharp and radiates to her lower back. Pain is constant and she rates it 9/10. She tells me that she has been constipated for 19 weeks though she is able to pass gas. She takes 3 doses of Miralax and juice but has not been defecate. She denies fever, chills, chest pain or SOB though admits to experiencing frequent headaches. She reports no other acute concerns at this time. MD elicited complaint: abdominal pain Pertinent past history: constipation Onset (ago): day(s) (4 days) Pain Consistency: constant Location: RUQ Severity: severe Pain scale (0-10): 9 Quality: sharp Radiation: back Migration to: no migration Exacerbating factors: nothing Relieving factors: nothing Associated symptoms: nausea and vomiting Related Data Previous Rx's Medication Instructions Recorded acetaminophen 500 mg tablet 1,000 mg PO QID PRN fever or pain 10/02/20 (Tylenol Extra Strength) #14 tabs ferrous sulfate 325 mg (65 mg 325 mg PO DAILY Iron deficiency 10/02/20 iron) tablet anemia #30 tabs ibuprofen 400 mg tablet 400 mg PO Q6H PRN pain #14 tabs 10/02/20 benzonatate 200 mg capsule 200 mg PO TID PRN cough #30 caps 10/31/21 doxycycline hyclate 100 mg tablet 100 mg PO BID #20 tabs 10/31/21 prednisone 20 mg tablet 40 mg PO DAILY #10 tabs 10/31/21 nitrofurantoin 100 mg PO BID 7 days #14 caps 12/15/21 monohydrate/macrocrystals 100 mg capsule (Macrobid) ondansetron 4 mg disintegrating 4 mg PO Q8H #14 tabs 12/15/21 tablet cyclobenzaprine 10 mg tablet 10 mg PO TID PRN muscle spasm #14 12/31/21 tabs lidocaine 5 % topical patch 1 patch topical DAILY #30 ea 12/31/21 cyclobenzaprine 5 mg tablet 5 mg PO TID PRN muscle spasm #10 05/02/22 tabs ondansetron 4 mg disintegrating 4 mg PO Q6-8H PRN nausea and 05/02/22 tablet vomiting #7 tabs glycerin (adult) 1 supp NM BID PRN constipation #25 08/25/22 ea magnesium citrate (Citrate of 150 ml PO BID PRN constipation 08/25/22 Magnesia oral) #1,500 mL sennosides 8.6 mg-docusate sodium 1 tab-cap PO BEDTIME #14 tabs 08/25/22 50 mg tablet (Senokot-S) Allergies Allergy/AdvReac Type Severity Reaction Status Date / Time cephalexin [From Keflex] Allergy Rash Verified 08/03/22 16:32 droperidol Allergy Anaphylaxis Verified 08/03/22 16:32 Penicillins Allergy Rash Verified 08/03/22 16:32 Sulfa (Sulfonamide Allergy Rash Verified 08/03/22 16:32 Antibiotics) Review of Systems Review of Systems Yes all other systems are reviewed and are negative [facility] Past Medical History Medical History Celiac disease Colitis Left-sided weakness Surgical History History of cholecystectomy Social History Social History Alcohol intake: never Patient Tobacco Use Status: Never used Tobacco Advance Directives: No Physical Exam ED Vital Signs: Vital Signs - 24 hr 09/11/22 11:23 09/11/22 14:41 Temperature 98.3 F Pulse Rate 95 79 Respiratory Rate 18 17 Blood Pressure 130/73 127/86 Pulse Oximetry 97 99 Oxygen Delivery Method Room Air Room Air BMI result Body Mass Index 38.6 Appearance: Alert. Oriented X3. No acute distress. HEENT: normal inspection CVS: Normal heart rate and rhythm. Pulses normal. Respiratory: No respiratory distress. Abdomen: + distended, + BS in all four quadrant, + tenderness noted in RUQ, RLQ and LUQ JONATHAN: normal inspection, no hemorrhoids, minimal stool in rectal vault, no palpable stool ball Skin: Skin warm and dry. Normal skin color. Normal skin turgor. No rashes. Extremities: Normal tone and ROM Neuro: Oriented X 3. No motor deficit. No sensory deficit. Course Course Course Narrative: This is a rapid medical exam. Deferred additional HPI, ROS. PE to primary provider. 51yo female with history of migraines, chronic pain, depression, hypothyroidism, s/p nataly 2000 here with complaints of 4 days of right upper quadrant abdominal pain, vomiting, diarrhea. VSS Will obtain labs, UA Medical Decision Making Medical Decision Making MDM Narrative: Patient is a 51 year old female with a history of migraine headache, anxiety, depression, PTSD, celiac disease and personality disorder presenting today for 4 day history of diffuse abdominal pain associated with nausea and vomiting. She is passing flatus and she has bowel sounds. Doubt bowel obstruction. Based on her history and physical presentation, I believe patient is most likely constipated. A KUB XRray was performed, which showed moderate colonic stool burden, greatest in the descending colon. A rectal exam was performed, however, no stool ball was found in the rectal canal and a suppository was inserted. Patient was also given Milk of magnesium but she eloped prior to being discharged. Differential Diagnosis Differential Diagnoses: The differential diagnosis associated with the presentation includes 1. Constipation 2. Pancreatitis 3. Duodenal ulcer 4. less likely SBO or colitis Lab Data [facility] Lab Attestation statement: I reviewed the patient's lab results. Labs were reviewed and were unremarkable. 09/11/22 13:51 09/11/22 13:51 Labs: Lab Results 09/11/22 09/11/22 Range/Units 13:51 13:51 WBC 7.1 (4.8-10.8) X10*3/uL RBC 4.52 (4.20-5.50) X10*6/uL Hgb 13.8 (12.0-16.0) g/dl Hct 44.4 (37.0-47.0) % MCV 98.2 H (80.0-98.0) fL MCH 30.5 (27.0-33.0) pg MCHC 31.1 (31.0-35.0) g/dl RDW 14.0 (11.0-16.0) % Plt Count 155 L D (160-400) X10*3/uL MPV 10.4 (9.4-12.3) fL Immature Gran % (Auto) 0.3 (0.0-0.4) % Neut % (Auto) 62.5 (45-73) % Lymph % (Auto) 20.3 (20-40) % [place] % (Auto) 5.7 (2-11) % Eos % (Auto) 10.5 H (0-4) % Baso % (Auto) 0.7 (0-2) % Lymph # (Auto) 1.4 (1.2-4.9) X10*3/uL [place] # (Auto) 0.4 (0.1-1.2) X10*3/uL Eos # (Auto) 0.7 H (0.0-0.4) X10*3/uL Baso # (Auto) 0.1 (0.0-0.2) X10*3/uL Abs Immat Gran (auto) 0.02 (0.00-0.03) X10*3/uL Absolute Neuts (auto) 4.4 (2.0-8.3) x10*3/uL Absolute Nucleated RBC 0.000 (0.0-0.012) X10*3/uL Nucleated RBC % (auto) 0.0 (0.0-0.2) /100WBC Smear Tech's Comments VERIFIED Sodium 140 (135-145) mmol/L Potassium 4.7 D (3.3-5.1) mmol/L Chloride 111 H (96-108) mmol/L Carbon Dioxide 20 L (22-29) mmol/L Anion Gap 14 (12-20) BUN 15 (9-16) mg/dL Creatinine 1.24 (0.5-1.4) mg/dL Estim Creat Clear Calc 45.4 Estimated GFR 46 Random Glucose 86 (60-115) mg/dL Calcium 9.5 (8.4-10.2) mg/dL Total Bilirubin 0.3 (0.0-1.0) mg/dL Direct Bilirubin 0.1 (0.0-0.5) mg/dL AST 24 (5-31) U/L ALT 13 (0-31) U/L Alkaline Phosphatase 105 (39-117) U/L Total Protein 8.0 (6.5-8.0) g/dL Albumin 4.3 (3.5-5.0) g/dL Lipase 25 (8-78) U/L Independent Interpretation I performed an independent interpretation of an: Plain X-Ray (KUB XRay) Interpretation: Large amount of stool in colon, agree w/ radiology Radiology Impression Discussion of test interpretation with radiology: I have reviewed the radiologist's reading. Radiologist Impression: Impression by radiologist reads- moderate colonic stool burden, greatest in the descending colon. I agree with with radiologist impression. External Record Review External record reviewed: Office record, Outpatient record and Prior outpatient labs Prescription Management I considered prescription management with: Other (laxatives) Chronic Conditions Patient?s care impacted by: Other (celiac, chronic constipation ) Medications Administered Discontinued Medications Generic Name Dose Route Start Last Admin Trade Name Freq PRN Reason Stop Dose Admin Bisacodyl 10 mg 09/11/22 15:13 09/11/22 15:18 Bisacodyl 10 Mg Supp.Rect NM 09/11/22 15:14 10 mg ONCE ONE Administration Magnesium Hydroxide 30 ml 09/11/22 15:08 09/11/22 15:18 Milk Of Magnesia 30 Ml Oral.Susp PO 09/11/22 15:09 30 ml ONCE ONE Administration Critical Care Time Critical Care Time Critical Care Time: No Discharge Plan Discharge Clinical Impression: Constipation Patient Disposition: Elopement Prescriptions: No Action acetaminophen [Tylenol Extra Strength] 500 mg tablet 1,000 mg PO QID PRN (Reason: fever or pain) Qty: 14 0RF ibuprofen 400 mg tablet 400 mg PO Q6H PRN (Reason: pain) Qty: 14 0RF ferrous sulfate 325 mg (65 mg iron) tablet 325 mg PO DAILY Qty: 30 0RF benzonatate 200 mg capsule 200 mg PO TID PRN (Reason: cough) Qty: 30 0RF doxycycline hyclate 100 mg tablet 100 mg PO BID Qty: 20 0RF prednisone 20 mg tablet 40 mg PO DAILY Qty: 10 0RF nitrofurantoin monohyd/m-cryst [Macrobid] 100 mg capsule 100 mg PO BID 7 Days Qty: 14 0RF Rx Instructions: must administer with a meal/food ondansetron 4 mg tablet,disintegrating 4 mg PO Q8H Qty: 14 0RF cyclobenzaprine 10 mg tablet 10 mg PO TID PRN (Reason: muscle spasm) Qty: 14 0RF lidocaine 5 % adhesive patch,medicated 1 patch topical DAILY Qty: 30 0RF Rx Instructions: leave on most painful area for up to 12 hrs cyclobenzaprine 5 mg tablet 5 mg PO TID PRN (Reason: muscle spasm) Qty: 10 0RF ondansetron 4 mg tablet,disintegrating 4 mg PO Q6-8H PRN (Reason: nausea and vomiting) Qty: 7 0RF magnesium citrate [Citrate of Magnesia] Solution 150 ml PO BID PRN (Reason: constipation) Qty: 1500 0RF sennosides-docusate sodium [Senokot-S] 8.6-50 mg tablet 1 tab-cap PO BEDTIME Qty: 14 0RF glycerin (adult) Suppository 1 supp NM BID PRN (Reason: constipation) Qty: 25 0RF Interventions: ED Discharge Assessment Last Done: 09/11/22 15:47 Discharge Date/Time: 09/11/22 15:48
[2022-09-11 11:23] VITALS: BP 130/73; PULSE 95; RESP 18; TEMP 36.8; O2SAT 97; BMI 38.6
[2022-09-11 13:58] LABS: Basophils Absolute Auto 0.1 X10*3/uL (0.0-0.2); Basophils Percent Auto 0.7 % (0-2); Eosinophils Absolute Auto 0.7 X10*3/uL (0.0-0.4); Eosinophils Percent Auto 10.5 % (0-4); Hematocrit 44.4 % (37.0-47.0); Hemoglobin 13.8 g/dl (12.0-16.0); Imm Gran Abs Auto 0.02 X10*3/uL (0.00-0.03); Imm Gran Pct Auto 0.3 % (0.0-0.4); Lymphocytes Absolute Auto 1.4 X10*3/uL (1.2-4.9); Lymphocytes Percent Auto 20.3 % (20-40); MANUAL DIFF FLAG SCAN; Mean Corpuscular HGB Conc 31.1 g/dl (31.0-35.0); Mean Corpuscular Hemoglobin 30.5 pg (27.0-33.0); Mean Corpuscular Volume 98.2 fL (80.0-98.0); Monocytes Absolute Auto 0.4 X10*3/uL (0.1-1.2); Monocytes Percent Auto 5.7 % (2-11); Neutrophils Absolute Auto 4.4 x10*3/uL (2.0-8.3); Neutrophils Percent Auto 62.5 % (45-73); PLT CLUMP 1; Red Blood Count 4.52 X10*6/uL (4.20-5.50); SCAN SMEAR FLAG 1
[2022-09-11 14:00] LABS: White Blood Count 7.1 X10*3/uL (4.8-10.8)
[2022-09-11 14:29] LABS: Mean Platelet Volume 10.4 fL (9.4-12.3); Platelet Count 155 X10*3/uL (160-400)
[2022-09-11 14:30] LABS: Alanine Aminotransferase 13 U/L (0-31); Albumin Level 4.3 g/dL (3.5-5.0); Alkaline Phosphatase 105 U/L (39-117); Anion Gap 14 (12-20); Aspartate Amino Transferase 24 U/L (5-31); Bilirubin Direct 0.1 mg/dL (0.0-0.5); Bilirubin Total 0.3 mg/dL (0.0-1.0); Blood Urea Nitrogen 15 mg/dL (9-16); Calcium 9.5 mg/dL (8.4-10.2); Carbon Dioxide 20 mmol/L (22-29); Chloride 111 mmol/L (96-108); Creatinine Clr Calc Pharmacy 45.4; Estimated Glomerular Filt Rate 46; Glucose Random 86 mg/dL (60-115); Lipase 25 U/L (8-78); Potassium 4.7 mmol/L (3.3-5.1); SLIDE REVIEW VERIFIED; Sodium 140 mmol/L (135-145)
[2022-09-11 14:41] VITALS: BP 127/86; PULSE 79; RESP 17; O2SAT 99
[2022-09-11] MEDS: Milk of Magnesia 30 ML ORAL.SUSP PO (15:18)
[2022-09-11] MEDS: bisacodyL 10 MG SUPP.RECT PR (15:18)
== END 2022-09-11 15:48 | disposition left against medical advice (07) ==
PROVIDERS: Nurse Practitioner Family; Emergency Provider Emergency Medicine; PCP Internal Medicine
DX: K59.00 Constipation, unspecified (principal); R10.11 Right upper quadrant pain; Z79.899 Other long term (current) drug therapy
CPT/HCPCS: 36415; 74018; 80048; 80076; 83690; 85025; 99282; 99283

== ENCOUNTER 2022-09-19 13:30 | Emergency (ER) | payer OTHER, SELFPAY ==
[2022-09-19 13:56] VITALS: BP 129/83; PULSE 92; RESP 20; TEMP 36.9; O2SAT 97; BMI 38.6
--- NOTE | 2022-09-19 13:57 | ED_ITS ---
HPI - General Adult General Chief complaint: Abdominal Pain Stated complaint: R abd pain, nerve pain on face Source: patient Mode of arrival: ambulatory Limitations: no limitations History of Present Illness HPI narrative: Patient is a 51 year old assigned female at with a history of depression, anxiety, and PTSD presenting to the emergency department today with abdominal pain. Patient states that over the last 4 days she has had nausea and abdominal pain. Patient denies any dizziness, lightheadedness, fever, chills, blurry vision, double vision, loss of vision, chest pain, difficulty breathing, shortness of breath, back pain, night sweats, pain with urination, increased urinary frequency, increased urinary urgency, blood in her urine or stool, syncope or a near syncopal episode, recent trauma or falls, bowel incontinence, bladder incontinence, bowel retention, bladder retention, or any other compla ints at this time. Onset (ago): day(s) (4) Location: abdomen Radiation: non-radiation Severity: mild Severity scale (1-10): 3 Quality: aching Pain Consistency: constant Relieving factors: none Exacerbating factors: none Associated symptoms: nausea/vomiting Treatments prior to arrival: none Related Data Previous Rx's Medication Instructions Recorded acetaminophen 500 mg tablet 1,000 mg PO QID PRN fever or pain 10/02/20 (Tylenol Extra Strength) #14 tabs ferrous sulfate 325 mg (65 mg 325 mg PO DAILY Iron deficiency 10/02/20 iron) tablet anemia #30 tabs ibuprofen 400 mg tablet 400 mg PO Q6H PRN pain #14 tabs 10/02/20 benzonatate 200 mg capsule 200 mg PO TID PRN cough #30 caps 10/31/21 doxycycline hyclate 100 mg tablet 100 mg PO BID #20 tabs 10/31/21 prednisone 20 mg tablet 40 mg PO DAILY #10 tabs 10/31/21 nitrofurantoin 100 mg PO BID 7 days #14 caps 12/15/21 monohydrate/macrocrystals 100 mg capsule (Macrobid) ondansetron 4 mg disintegrating 4 mg PO Q8H #14 tabs 12/15/21 tablet cyclobenzaprine 10 mg tablet 10 mg PO TID PRN muscle spasm #14 12/31/21 tabs lidocaine 5 % topical patch 1 patch topical DAILY #30 ea 12/31/21 cyclobenzaprine 5 mg tablet 5 mg PO TID PRN muscle spasm #10 05/02/22 tabs ondansetron 4 mg disintegrating 4 mg PO Q6-8H PRN nausea and 05/02/22 tablet vomiting #7 tabs glycerin (adult) 1 supp GA BID PRN constipation #25 08/25/22 ea magnesium citrate (Citrate of 150 ml PO BID PRN constipation 08/25/22 Magnesia oral) #1,500 mL sennosides 8.6 mg-docusate sodium 1 tab-cap PO BEDTIME #14 tabs 08/25/22 50 mg tablet (Senokot-S) Allergies Allergy/AdvReac Type Severity Reaction Status Date / Time cephalexin [From Keflex] Allergy Rash Verified 09/19/22 13:59 droperidol Allergy Anaphylaxis Verified 09/19/22 13:59 Penicillins Allergy Rash Verified 09/19/22 13:59 Sulfa (Sulfonamide Allergy Rash Verified 09/19/22 13:59 Antibiotics) Review of Systems Constitutional: Constitutional: Reports no additional constitutional complaints, Denies chills, Denies fever(s) and Denies night sweats Eyes: Eyes: Reports no additional eye complaints, Denies blurry vision, Denies change in vision, Denies diplopia, Denies eye discharge, Denies loss of vision and Denies eye pain ENT: Denies dizziness Cardiovascular: Cardiovascular: Reports no additional cardiovascular complaints, Denies chest pain, Denies lightheadedness, Denies Loss of Consciousness and Denies dyspnea Respiratory: Respiratory: Reports no additional respiratory complaints and Denies dyspnea Gastrointestinal: Gastrointestinal: Reports no additional gastrointestinal complaints, Reports abdominal pain, Denies melena, Denies hematochezia, Denies change in bowel habits, Denies change in stool character and Reports nausea Genitourinary: Genitourinary: Denies hematuria, Denies urinary frequency, Denies dysuria, Denies urinary incontinence, Denies urinary hesitancy and Denies urinary urgency Musculoskeletal: Musculoskeletal: Reports no additional musculoskeletal complaints, Denies numbness and Denies tingling Neurologic: Denies dizziness, Denies loss of vision, Denies numbness and Denies tingling Psychiatric: Psychiatric: Reports no additional psychiatric complaints Endocrine: Endocrine: Reports no additional endocrine complaints Hematologic/Lymphatic: Hematologic/Lymphatic: Reports no additional hematologic/lymphatic complaints Allergic/Immunologic: Allergic/Immunologic: Reports no additional allergic/immunologic complaints [facility] Past Medical History Attestation statement: The following information was validated with the patient. Source: old records reviewed and nursing notes reviewed Medical History Celiac disease Colitis Left-sided weakness Surgical History History of cholecystectomy Social History Social History Alcohol intake: never Patient Tobacco Use Status: Never used Tobacco Advance Directives: No Advance Directives Information Provided: No Physical Exam ED Vital Signs: Vital Signs - 24 hr 09/19/22 13:56 Temperature 98.5 F Pulse Rate 92 Respiratory Rate 20 Blood Pressure 129/83 Pulse Oximetry 97 Oxygen Delivery Method Room Air BMI result Body Mass Index 38.6 Const General: cooperative, no acute distress, alert and awake Nutritional Appearance: well nourished Orientation/consciousness: patient oriented x3 Limitations: no limitations HENMT Head: Yes normal to inspection and Yes atraumatic Ears: hearing grossly normal bilaterally and external ears normal General nose exam: Normal external nose present, no nasal discharge noted and no epistaxis Face and sinus: Yes normal facial exam, No abrasion and No laceration Mouth: Normal oral and palatal mucosa present, no drooling and no muffled voice Eyes General: appearance normal, both eyes and all related structures Periorbital: periorbital findings normal Eyelids: Yes eyelids normal Conjunctivae: conjunctivae normal Pupils: Equal, round and reactive pupils present EOM: EOMs intact bilaterally Neck Neck: Yes normal visual inspection, Yes full ROM and Yes no lymphadenopathy Chest Chest palpation & inspection: normal inspection of the chest Resp Effort & Inspection: normal respiratory effort and able to speak in complete sentences GI Inspection: Yes normal to inspection Palpation (GI): Soft to palpation, not firm, nontender and no guarding Neuro General: patient oriented x3 and moves all extremities Cranial nerves: Yes Equal, round and reactive pupils present Cognition (Neuro): normal cognition Motor exam (neuro): 5/5 motor strength present throughout Sensory Exam: Normal double simultaneous stimulation for sensation Coordination: [id number] test normal Extrem General: Yes normal to inspection, Yes full ROM and Yes capillary refill normal Psych Appearance: grossly normal Mental Status: mental status grossly normal Affect: normal affect Attitude: cooperative Thought process: Normal thought process present Thought content: Normal thought content present Insight: Good insight present (Psych) Course Course Course Narrative: RME performed by Nydia Duran PA-C. Patient is a 51 year old assigned female at presenting to the emergency department with abdominal pain, nausea, and diarrhea. Labs ordered. Patient placed back in the waiting room pending room availability and results. Medical Decision Making Medical Decision Making MDM Narrative: Patient is a 51 year old assigned female at with a history of anxiety, depression, and PTSD presenting to the emergency department today with abdominal pain and nausea. Patient's physical exam was unremarkable. Patient's labs were unremarkable. Patient eloped from the department before myself or any other ED provider could explain the physical exam findings or lab results with the patient. . Differential Diagnosis Differential Diagnoses: The differential diagnosis associated with the presentation includes abdominal pain, chronic abdominal pain, gastritis Lab Data MDM Lab Attestation statement: I reviewed the patient's lab results. My interpretation of these studies and their corresponding values is that they are grossly normal. 09/19/22 14:49 09/19/22 14:49 Labs: Lab Results 09/19/22 09/19/22 Range/Units 14:49 14:49 WBC 6.4 (4.8-10.8) X10*3/uL RBC 4.57 (4.20-5.50) X10*6/uL Hgb 13.9 (12.0-16.0) g/dl Hct 43.2 (37.0-47.0) % MCV 94.5 (80.0-98.0) fL MCH 30.4 (27.0-33.0) pg MCHC 32.2 (31.0-35.0) g/dl RDW 13.7 (11.0-16.0) % Plt Count 240 D (160-400) X10*3/uL MPV 9.6 (9.4-12.3) fL Immature Gran % (Auto) 0.3 (0.0-0.4) % Neut % (Auto) 65.3 (45-73) % Lymph % (Auto) 21.7 (20-40) % [place] % (Auto) 6.1 (2-11) % Eos % (Auto) 6.3 H (0-4) % Baso % (Auto) 0.3 (0-2) % Lymph # (Auto) 1.4 (1.2-4.9) X10*3/uL [place] # (Auto) 0.4 (0.1-1.2) X10*3/uL Eos # (Auto) 0.4 (0.0-0.4) X10*3/uL Baso # (Auto) 0.0 (0.0-0.2) X10*3/uL Abs Immat Gran (auto) 0.02 (0.00-0.03) X10*3/uL Absolute Neuts (auto) 4.1 (2.0-8.3) x10*3/uL Absolute Nucleated RBC 0.000 (0.0-0.012) X10*3/uL Nucleated RBC % (auto) 0.0 (0.0-0.2) /100WBC Sodium 139 (135-145) mmol/L Potassium 3.5 D (3.3-5.1) mmol/L Chloride 112 H (96-108) mmol/L Carbon Dioxide 18 L (22-29) mmol/L Anion Gap 13 (12-20) BUN 17 H (9-16) mg/dL Creatinine 1.08 (0.5-1.4) mg/dL Estim Creat Clear Calc 52.1 Estimated GFR 54 Random Glucose 102 (60-115) mg/dL Calcium 9.5 (8.4-10.2) mg/dL Magnesium 2.3 (1.6-2.6) mg/dL Total Bilirubin 0.3 (0.0-1.0) mg/dL AST 12 (5-31) U/L ALT 6 (0-31) U/L Alkaline Phosphatase 105 (39-117) U/L Total Protein 7.5 (6.5-8.0) g/dL Albumin 4.3 (3.5-5.0) g/dL Discharge Plan Discharge Clinical Impression: Abdominal pain Patient Disposition: Elopement Prescriptions: No Action acetaminophen [Tylenol Extra Strength] 500 mg tablet 1,000 mg PO QID PRN (Reason: fever or pain) Qty: 14 0RF ibuprofen 400 mg tablet 400 mg PO Q6H PRN (Reason: pain) Qty: 14 0RF ferrous sulfate 325 mg (65 mg iron) tablet 325 mg PO DAILY Qty: 30 0RF benzonatate 200 mg capsule 200 mg PO TID PRN (Reason: cough) Qty: 30 0RF doxycycline hyclate 100 mg tablet 100 mg PO BID Qty: 20 0RF prednisone 20 mg tablet 40 mg PO DAILY Qty: 10 0RF nitrofurantoin monohyd/m-cryst [Macrobid] 100 mg capsule 100 mg PO BID 7 Days Qty: 14 0RF Rx Instructions: must administer with a meal/food ondansetron 4 mg tablet,disintegrating 4 mg PO Q8H Qty: 14 0RF cyclobenzaprine 10 mg tablet 10 mg PO TID PRN (Reason: muscle spasm) Qty: 14 0RF lidocaine 5 % adhesive patch,medicated 1 patch topical DAILY Qty: 30 0RF Rx Instructions: leave on most painful area for up to 12 hrs cyclobenzaprine 5 mg tablet 5 mg PO TID PRN (Reason: muscle spasm) Qty: 10 0RF ondansetron 4 mg tablet,disintegrating 4 mg PO Q6-8H PRN (Reason: nausea and vomiting) Qty: 7 0RF magnesium citrate [Citrate of Magnesia] Solution 150 ml PO BID PRN (Reason: constipation) Qty: 1500 0RF sennosides-docusate sodium [Senokot-S] 8.6-50 mg tablet 1 tab-cap PO BEDTIME Qty: 14 0RF glycerin (adult) Suppository 1 supp GA BID PRN (Reason: constipation) Qty: 25 0RF Interventions: ED Discharge Assessment Last Done: 09/19/22 20:01 Discharge Date/Time: 09/19/22 20:45
[2022-09-19 14:53] LABS: MANUAL DIFF FLAG NO
[2022-09-19 14:55] LABS: Basophils Percent Auto 0.3 % (0-2); Eosinophils Absolute Auto 0.4 X10*3/uL (0.0-0.4); Eosinophils Percent Auto 6.3 % (0-4); Hematocrit 43.2 % (37.0-47.0); Hemoglobin 13.9 g/dl (12.0-16.0); Imm Gran Abs Auto 0.02 X10*3/uL (0.00-0.03); Imm Gran Pct Auto 0.3 % (0.0-0.4); Lymphocytes Absolute Auto 1.4 X10*3/uL (1.2-4.9); Lymphocytes Percent Auto 21.7 % (20-40); Mean Corpuscular HGB Conc 32.2 g/dl (31.0-35.0); Mean Corpuscular Hemoglobin 30.4 pg (27.0-33.0); Mean Corpuscular Volume 94.5 fL (80.0-98.0); Mean Platelet Volume 9.6 fL (9.4-12.3); Monocytes Absolute Auto 0.4 X10*3/uL (0.1-1.2); Monocytes Percent Auto 6.1 % (2-11); Neutrophils Absolute Auto 4.1 x10*3/uL (2.0-8.3); Neutrophils Percent Auto 65.3 % (45-73); Platelet Count 240 X10*3/uL (160-400); Red Blood Count 4.57 X10*6/uL (4.20-5.50); Red Cell Distribution Width 13.7 % (11.0-16.0); White Blood Count 6.4 X10*3/uL (4.8-10.8)
[2022-09-19 15:09] LABS: Alanine Aminotransferase 6 U/L (0-31); Albumin Level 4.3 g/dL (3.5-5.0); Alkaline Phosphatase 105 U/L (39-117); Anion Gap 13 (12-20); Aspartate Amino Transferase 12 U/L (5-31); Bilirubin Total 0.3 mg/dL (0.0-1.0); Blood Urea Nitrogen 17 mg/dL (9-16); Calcium 9.5 mg/dL (8.4-10.2); Carbon Dioxide 18 mmol/L (22-29); Chloride 112 mmol/L (96-108); Creatinine Clr Calc Pharmacy 52.1; Estimated Glomerular Filt Rate 54; Glucose Random 102 mg/dL (60-115); Magnesium 2.3 mg/dL (1.6-2.6); Potassium 3.5 mmol/L (3.3-5.1); Sodium 139 mmol/L (135-145); Total Protein 7.5 g/dL (6.5-8.0)
== END 2022-09-19 20:45 | disposition left against medical advice (07) ==
PROVIDERS: Physician Assistant Medical; Emergency Provider Emergency Medicine
DX: R10.31 Right lower quadrant pain (principal); Z79.899 Other long term (current) drug therapy
CPT/HCPCS: 36415; 80053; 83735; 85025; 99282; 99283

== ENCOUNTER 2022-10-30 16:05 | Emergency (ER) | payer OTHER, SELFPAY ==
--- NOTE | ~2022-10-30 | XR_ITS ---
EXAMINATION: XR ABDOMEN KUB CLINICAL INDICATION: Constipation COMPARISON: None available. TECHNIQUE: AP view of the abdomen. FINDINGS: Considerable fecal material is evident throughout the colon, more so than on 09/11/2022. No dilated small bowel loops are evident. There are no radiopaque calculi. Levoscoliosis of the lumbar spine is again evident. XR/XR abdomen 1V IMPRESSION: Moderate to severe constipation, with greater stool burden throughout the colon than on 09/11/2022
--- NOTE | 2022-10-30 16:28 | ED.GENADULT ---
HPI - General Adult General Chief complaint: Abdominal Pain Stated complaint: Constipated 4 months Time Seen by Provider: 10/30/22 18:04 Source: patient Mode of arrival: ambulatory Limitations: no limitations History of Present Illness HPI narrative: patient history of chronic constipation been constipated for last 4 months and small bowel movements tried colon prep soapsuds enema was MiraLax 3 times a day without much success having only small ivania stool no vomiting no fever no abdominal distension patient been eating okay Related Data Previous Rx's Medication Instructions Recorded acetaminophen 500 mg tablet 1,000 mg PO QID PRN fever or pain 10/02/20 (Tylenol Extra Strength) #14 tabs ferrous sulfate 325 mg (65 mg 325 mg PO DAILY Iron deficiency 10/02/20 iron) tablet anemia #30 tabs ibuprofen 400 mg tablet 400 mg PO Q6H PRN pain #14 tabs 10/02/20 benzonatate 200 mg capsule 200 mg PO TID PRN cough #30 caps 10/31/21 doxycycline hyclate 100 mg tablet 100 mg PO BID #20 tabs 10/31/21 prednisone 20 mg tablet 40 mg PO DAILY #10 tabs 10/31/21 nitrofurantoin 100 mg PO BID 7 days #14 caps 12/15/21 monohydrate/macrocrystals 100 mg capsule (Macrobid) ondansetron 4 mg disintegrating 4 mg PO Q8H #14 tabs 12/15/21 tablet cyclobenzaprine 10 mg tablet 10 mg PO TID PRN muscle spasm #14 12/31/21 tabs lidocaine 5 % topical patch 1 patch topical DAILY #30 ea 12/31/21 cyclobenzaprine 5 mg tablet 5 mg PO TID PRN muscle spasm #10 05/02/22 tabs ondansetron 4 mg disintegrating 4 mg PO Q6-8H PRN nausea and 05/02/22 tablet vomiting #7 tabs glycerin (adult) 1 supp DC BID PRN constipation #25 08/25/22 ea magnesium citrate (Citrate of 150 ml PO BID PRN constipation 08/25/22 Magnesia oral) #1,500 mL sennosides 8.6 mg-docusate sodium 1 tab-cap PO BEDTIME #14 tabs 08/25/22 50 mg tablet (Senokot-S) Allergies Allergy/AdvReac Type Severity Reaction Status Date / Time cephalexin [From Keflex] Allergy Rash Verified 10/30/22 16:29 droperidol Allergy Anaphylaxis Verified 10/30/22 16:29 Penicillins Allergy Rash Verified 10/30/22 16:29 Sulfa (Sulfonamide Allergy Rash Verified 10/30/22 16:29 Antibiotics) Review of Systems Review of Systems: Yes all other systems are reviewed and are negative PMFSH Past Medical History Medical History Celiac disease Colitis Hypertension Left-sided weakness Surgical History History of cholecystectomy Social History Social History Alcohol intake: never Patient Tobacco Use Status: Never used Tobacco Smoked in Last 30 Days: No Use of substances other than those prescribed or required for medical reasons: No Advance Directives: Yes Advance Directives Information Provided: No Advance Directives on File: No Patient : No Physical Exam ED Vital Signs: Vital Signs - 24 hr 10/30/22 16:29 10/30/22 18:54 Temperature 98.9 F 98.5 F Pulse Rate 98 92 Respiratory Rate 18 16 Blood Pressure 146/86 H 148/97 H Pulse Oximetry 98 94 Oxygen Delivery Method Room Air Room Air BMI result Body Mass Index 37.7 Appearance: Alert. Oriented X3. No acute distress. Eyes: no pyloric ENT: Pharynx normal. Oral Mucosa moist Neck: Normal inspection. Neck supple. CVS: Normal heart rate and rhythm. Pulses normal. Respiratory: No respiratory distress. Equal air entry bilateral, no wheezing/rales/rhonchi Abdomen: Soft and nontender. Bowel sounds are present, no mass palpable, no CVA tenderness rectum: empty no stool palpable Skin: Skin warm and dry. Normal skin color. Normal skin turgor. Extremities: No lower extremity edema. No calf tenderness Neuro: Oriented X 3. No motor deficit. Course Course Course Narrative: This is a rapid medical exam: Additional HPI, ROS, PE not included below will be deferred to primary provider. Patient is a 51-year-old female with history of migraines, anxiety, depression, transverse myelitis, PTSD, personality disorder, colitis, Celiac disease presenting to the emergency department with complaint of constipation for the past 4 months. States has only been able to have small, hard bowel movements. Has tried multiple OTC medications, including a colon prep last week without relief. Has not had any manual disimpactions. Reports nausea, denies vomiting. Denies fevers. Plan: x-ray, labs, UA Medications Administered Discontinued Medications Generic Name Dose Route Start Last Admin Trade Name Solo PRN Reason Stop Dose Admin Polyethylene Glycol/Electrolytes 240 ml 10/30/22 18:15 10/30/22 18:53 Peg 3350/Na Sulf,Bicarb,Cl/Kcl 4,000 Ml Soln.Recon PO 10/30/22 18:16 240 ml ONCE ONE Administration Medical Decision Making Medical Decision Making MDM Narrative: patient has significant constipation was given GoLYTELY advised to drink GoLYTELY hopefully that will clear her bowel Lab Data MDM Lab Attestation statement: I reviewed the patient's lab results. 10/30/22 17:51 10/30/22 17:51 Labs: Lab Results 10/30/22 10/30/22 10/30/22 Range/Units 17:51 17:51 17:51 WBC 7.7 (4.8-10.8) X10*3/uL RBC 4.31 (4.20-5.50) X10*6/uL Hgb 13.6 (12.0-16.0) g/dl Hct 42.1 (37.0-47.0) % MCV 97.7 (80.0-98.0) fL MCH 31.6 (27.0-33.0) pg MCHC 32.3 (31.0-35.0) g/dl RDW 14.1 (11.0-16.0) % Plt Count 299 (160-400) X10*3/uL MPV 10.3 (9.4-12.3) fL Immature Gran % (Auto) 0.6 H (0.0-0.4) % Neut % (Auto) 63.6 (45-73) % Lymph % (Auto) 25.5 (20-40) % [place] % (Auto) 5.9 (2-11) % Eos % (Auto) 3.6 (0-4) % Baso % (Auto) 0.8 (0-2) % Lymph # (Auto) 2.0 (1.2-4.9) X10*3/uL [place] # (Auto) 0.5 (0.1-1.2) X10*3/uL Eos # (Auto) 0.3 (0.0-0.4) X10*3/uL Baso # (Auto) 0.1 (0.0-0.2) X10*3/uL Abs Immat Gran (auto) 0.05 H (0.00-0.03) X10*3/uL Absolute Neuts (auto) 4.9 (2.0-8.3) x10*3/uL Absolute Nucleated RBC 0.000 (0.0-0.012) X10*3/uL Nucleated RBC % (auto) 0.0 (0.0-0.2) /100WBC Sodium 141 (135-145) mmol/L Potassium 4.3 D (3.3-5.1) mmol/L Chloride 114 H (96-108) mmol/L Carbon Dioxide 17 L (22-29) mmol/L Anion Gap 14 (12-20) BUN 19 H (9-16) mg/dL Creatinine 0.97 (0.5-1.4) mg/dL Estim Creat Clear Calc 57.2 Estimated GFR > 60 Random Glucose 86 (60-115) mg/dL Calcium 9.4 (8.4-10.2) mg/dL Total Bilirubin 0.2 (0.0-1.0) mg/dL AST 11 (5-31) U/L ALT 10 (0-31) U/L Alkaline Phosphatase 111 (39-117) U/L Total Protein 7.6 (6.5-8.0) g/dL Albumin 4.3 (3.5-5.0) g/dL Urine Color Yellow Urine Appearance Clear Urine pH 7.0 (5.0-9.0) Ur Specific [place] 1.020 (1.005-1.025) Urine Protein Negative (Neg-Trace) mg/dL Urine Glucose (UA) Negative (Negative) mg/dL Urine Ketones Negative (Negative) mg/dL Urine Blood Negative (Negative) Urine Nitrite Negative (Negative) Ur Leukocyte Esterase Negative (Negative) Discharge Plan Discharge Clinical Impression: Constipation Patient Disposition: Home, Self-Care Instructions: Constipation (ED) Additional Instructions: drink GoLYTELY as given to you tonight until you have bowel movements Prescriptions: No Action acetaminophen [Tylenol Extra Strength] 500 mg tablet 1,000 mg PO QID PRN (Reason: fever or pain) Qty: 14 0RF ibuprofen 400 mg tablet 400 mg PO Q6H PRN (Reason: pain) Qty: 14 0RF ferrous sulfate 325 mg (65 mg iron) tablet 325 mg PO DAILY Qty: 30 0RF benzonatate 200 mg capsule 200 mg PO TID PRN (Reason: cough) Qty: 30 0RF doxycycline hyclate 100 mg tablet 100 mg PO BID Qty: 20 0RF prednisone 20 mg tablet 40 mg PO DAILY Qty: 10 0RF nitrofurantoin monohyd/m-cryst [Macrobid] 100 mg capsule 100 mg PO BID 7 Days Qty: 14 0RF Rx Instructions: must administer with a meal/food ondansetron 4 mg tablet,disintegrating 4 mg PO Q8H Qty: 14 0RF cyclobenzaprine 10 mg tablet 10 mg PO TID PRN (Reason: muscle spasm) Qty: 14 0RF lidocaine 5 % adhesive patch,medicated 1 patch topical DAILY Qty: 30 0RF Rx Instructions: leave on most painful area for up to 12 hrs cyclobenzaprine 5 mg tablet 5 mg PO TID PRN (Reason: muscle spasm) Qty: 10 0RF ondansetron 4 mg tablet,disintegrating 4 mg PO Q6-8H PRN (Reason: nausea and vomiting) Qty: 7 0RF magnesium citrate [Citrate of Magnesia] Solution 150 ml PO BID PRN (Reason: constipation) Qty: 1500 0RF sennosides-docusate sodium [Senokot-S] 8.6-50 mg tablet 1 tab-cap PO BEDTIME Qty: 14 0RF glycerin (adult) Suppository 1 supp DC BID PRN (Reason: constipation) Qty: 25 0RF Interventions: ED Discharge Assessment Last Done: 10/30/22 19:14 Discharge Date/Time: 10/30/22 19:17
[2022-10-30 16:29] VITALS: BP 146/86; PULSE 98; RESP 18; TEMP 37.2; O2SAT 98; BMI 37.7
[2022-10-30 17:57] LABS: MANUAL DIFF FLAG NO
[2022-10-30 18:00] LABS: Appearance Urine Clear; Color Urine Yellow; Glucose Urine UA Negative (Negative); Leukocyte Esterase Urine Negative (Negative); Nitrite Urine Negative (Negative); Urine Blood Negative (Negative); Urine Ketones Negative (Negative); Urine Protein Negative (Neg-Trace)
[2022-10-30 18:18] LABS: Alanine Aminotransferase 10 U/L (0-31); Albumin Level 4.3 g/dL (3.5-5.0); Alkaline Phosphatase 111 U/L (39-117); Anion Gap 14 (12-20); Aspartate Amino Transferase 11 U/L (5-31); Bilirubin Total 0.2 mg/dL (0.0-1.0); Blood Urea Nitrogen 19 mg/dL (9-16); Calcium 9.4 mg/dL (8.4-10.2); Carbon Dioxide 17 mmol/L (22-29); Chloride 114 mmol/L (96-108); Creatinine Clr Calc Pharmacy 57.2; Estimated Glomerular Filt Rate > 60; Glucose Random 86 mg/dL (60-115); Potassium 4.3 mmol/L (3.3-5.1); Sodium 141 mmol/L (135-145); Total Protein 7.6 g/dL (6.5-8.0)
[2022-10-30 18:22] LABS: Basophils Absolute Auto 0.1 X10*3/uL (0.0-0.2); Basophils Percent Auto 0.8 % (0-2); Eosinophils Absolute Auto 0.3 X10*3/uL (0.0-0.4); Eosinophils Percent Auto 3.6 % (0-4); Hematocrit 42.1 % (37.0-47.0); Hemoglobin 13.6 g/dl (12.0-16.0); Imm Gran Abs Auto 0.05 X10*3/uL (0.00-0.03); Imm Gran Pct Auto 0.6 % (0.0-0.4); Lymphocytes Percent Auto 25.5 % (20-40); Mean Corpuscular HGB Conc 32.3 g/dl (31.0-35.0); Mean Corpuscular Hemoglobin 31.6 pg (27.0-33.0); Mean Corpuscular Volume 97.7 fL (80.0-98.0); Mean Platelet Volume 10.3 fL (9.4-12.3); Monocytes Absolute Auto 0.5 X10*3/uL (0.1-1.2); Monocytes Percent Auto 5.9 % (2-11); Neutrophils Absolute Auto 4.9 x10*3/uL (2.0-8.3); Neutrophils Percent Auto 63.6 % (45-73); Platelet Count 299 X10*3/uL (160-400); Red Blood Count 4.31 X10*6/uL (4.20-5.50); Red Cell Distribution Width 14.1 % (11.0-16.0); White Blood Count 7.7 X10*3/uL (4.8-10.8)
[2022-10-30] MEDS: PEG 3350/Na Sulf,Bicarb,Cl/KCL 4,000 ML SOLN.RECON 240 ML PO (18:53)
[2022-10-30 18:54] VITALS: BP 148/97; PULSE 92; RESP 16; TEMP 36.9; O2SAT 94
== END 2022-10-30 19:17 | disposition home or self-care (01) ==
PROVIDERS: Registered Nurse Emergency; Emergency Provider Internal Medicine; PCP Internal Medicine
DX: K59.00 Constipation, unspecified (principal); R10.13 Epigastric pain; Z79.899 Other long term (current) drug therapy
CPT/HCPCS: 36415; 74018; 80053; 81003; 85025; 99284

== ENCOUNTER 2024-01-13 11:25 | Outpatient (RCR) | payer OTHER, SELFPAY | END 2024-05-05 15:54 | disposition home or self-care (01) | LOC: HO.PT 11:25 | PROVIDERS: PCP Internal Medicine; Visit Provider Internal Medicine | DX: R32 Unspecified urinary incontinence (principal); K59.09 Other constipation; R33.9 Retention of urine, unspecified; Z90.49 Acquired absence of other specified parts of digestive tract ==

== ENCOUNTER 2025-01-22 18:24 | Emergency (ER) | payer OTHER, SELFPAY ==
--- OUTSIDE RECORDS SUMMARY | 2010-10-01 05:30 | XMS_ITS | Continuity of Care Document ---
Author Organization [facility] Address [address] [place] [phone] Phone Care Team Providers Care Director Global Strategic Publisher Sales Name Role Phone Surgery [facility] Unavailable Unava ilable Allergies, Adverse Reactions, Alerts [...] Location Reason(s) For Visit Diagnoses Date Provider [facility], [address] [place] [address], [place], [place], [address] [place] [address], tel:[phone] [facility] battery replacement (chief complaint) No Information 2010 Surgery [facility]. [address] [place] [address], [id number], . tel:[phone] [facility], [address] [place] [address], [place], [place], [id number], tel:[phone] [facility] Classical migraine without mention of intractable migraine 2007 Vidya Thompson. [address] [place] [address], [place], [place], [id number], . tel:[phone] Family History Family Member Type Diagnosis Age At Onset No Information Payers Payer name Insurance type Covered green party ID Authoriza tion(s) Medicare MB [id number] Social History Type Description Quantity Date Captured [...]
--- OUTSIDE RECORDS SUMMARY | 2023-10-26 09:30 | XMS_ITS ---
Author Organization [facility] Address [address] [place] [address] Care Team Providers Care Field Marketing Representative Name Role Phone Edie Bee Primary Care Provider Dennis Gómez Unavailable [phone] Medications Medication SIG (Take, Route, Frequency, Duration) [...] nostril Nasally Once a day Active Ipratropium [place] 0.03 % as directed Inhalation Twice a day Active DuoNeb Active Encounters Encounter Location Date Provider Diagnosis [facility] [address] [place] [address] 10/26/2023 Dennis Lubin Chronic migraine without aura, intractable, with status migrainosus G43.711 Assessments Encounter Date Diagnosis (ICD Code) Assessment Notes Treatment Notes Treatment Clinical Notes Section Notes 10/26/2023 Chronic migraine without aura, intractable, with status migrainosus (ICD-10 - G43.711) Plan Of Treatment No Information Progress Notes * Lise POLLARD VDOB:1970 (54 yo F)Acc No.[id number]:10/26/2023 Patient: Niyah HAILEANIBALLise Kolby Provider: Starla Lubin MD :1970 A ge:52 Y S ex:Female Date:10/26/2023 Address:[address] [place], [place] [id number] Pcp:Edie Bee Subjective: * Chief Complaints: * [...] Orally Once a day , Taking Ipratropium [place] 0.03 % Solution as directed Inhalation Twice [...] Treatment: * Billing Information: * Visit Code: 84545 OFFICE VISIT,EST PT,LEVEL 4. Modifiers: 95 * Procedure Codes: * [place], [id number] on 01/22/2025 at 08:15 PM EDT Sign off status: Pending * Provider: Starla Lubin MD Date: 0 10/26/2023 Generated for Vincent damon/Roderick/Justin on: 1 08:15 PM EDT
--- OUTSIDE RECORDS SUMMARY | 2024-12-23 07:00 | XMS_ITS ---
Author Organization [facility] Address [address] [place] [address] Care Team Providers Care Forensic Psychiatrist Name Role Phone Edie Bee Primary Care Provider Rama Aviles [phone] REASON FOR VISIT 2 month f/u BP check Encounters Encounter Location Date Provider Diagnosis [facility] Primary Care [address] [address] 12/23/2024 Rama Rodriguez Plan Of Treatment Next Appt Details Provider Name:Edie lepe, 02/01/2025 03:00:00 PM, [address] [place] [address], [id number], Progress Notes * TOMA POLLARD VDOB:1970 (54 yo F)Acc No.[id number]:12/23/2024 BLOCKED FROM THE PATIENT Patient: TOMA LANDRY V External Provider: Rylan Rodriguez NP :1970 A ge:54 Y S ex:Female Date:12/23/2024 Address:[facility] [place], [id number] Pcp:Edie lunsford Patient's Default Facility:[facility] Subjective: * Chief Complaints: * 1 [...] Modified On:11/13/2023U Status:confirmed R53.82 Chronic fatigue Modified On:10/10/2022 Status:confirmed Z98.0 Intestinal anastomos is present Modified On:05/15/2023 Status:confirmed M54.41 Acute bilateral low back pain with right-sided sciatica Modified On:09/04/2023 Status:confirmed K52.9 Chronic diarrhea Modified On:09/25/2023 Status:confirmed Z90.49 Status post colectom y Modified On:10/26/2023 Status:confirmed M17.30 Unilateral post-trau matic osteoarthritis, unspecified knee Modified On:03/17/2024 Status:confirmed F60.3 Borderline personali ty disorder Modified On:03/17/2024 Status:confirmed R13.13 Pharyngeal dysphagia Modified On:04/28/2024 Status:confirmed N62 Macromastia Modified On:04/28/2024 Status:confirmed E66.01 Morbid (severe) obes ity due to excess calories Modified On:06/06/2024 Status:confirmed Z68.39 Body mass index [BMI ] [...] Z91.018 Allergy to other cynthia ds Modified On:01/10/2025 Status:confirmed * Medical History: Objective: * Vitals: Assessment: Plan: * Treatment: Care Plan: * Problems: * * The named appointment provid er may or may not be the originator of this progress note, and it is not deemed complete until electronically signed by the appointment provider. Sign off status: Pending * Provider: Rylan Rodriguez NP Date: 0 12/23/2024 Generated for Vincent damon/Roderick/Justin on: 1 08:15 PM EDT
--- NOTE | ~2025-01-22 | CT_ITS ---
CLINICAL HISTORY: Intractable Headache CT head without contrast Comparison: CT/REG/SR - CT HEAD WITHOUT IV CONTRAST - 08/03/22 17:15 EDT Findings: No intra-axial mass, midline shift, hydrocephalus, or acute hemorrhage. No significant atrophy-like change or white matter disease. The visualized paranasal sinuses and mastoid air cells are normal. The orbits are unremarkable. No skull fracture. IMPRESSION: 1. No acute intracranial findings. This document has been electronically signed by: Davis Cruz MD on 01/23/2025 00:17:41
--- NOTE | 2025-01-22 18:52 | ED.HA ---
HPI - Headache General Chief Complaint: Headache Stated Complaint: headache/nauseous/confused and weak Time Seen by Provider: 01/22/25 21:38 Source: patient Mode of arrival: ambulatory Limitations: no limitations History of Present Illness ED Provider: Osmar VAZQUEZ HPI Narrative: The patient is a 54-year-old female with a history of migraine headaches, anxiety, depression, personality disorder, PTSD, colitis, and celiac disease, presenting to the ED for evaluation of migraine headache which began earlier this week, patient was seen at a outside hospital ([facility]) and treated with migraine cocktail, patient received temporary relief and was discharged. The patient's neurologist started her on a Medrol Dosepak. Despite these interventions the patient's headache recurred and she contacted her insurance company who offers an in-home medical claims examiner service, patient reports twice this week she received additional migraine cocktails from her insurance company's in-home medical claims examiner. Patient reports despite these interventions the last 2 days, she again today is having severe headache and presents to the ED for management. The patient reports associated blurred vision, left-sided paresthesias, and subjective left-sided weakness. Patient reports this is often the presentation of her migraine headaches, however symptoms most often resolve following migraine cocktails. The patient denies associated fever/chills, nausea, vomiting, chest pain, shortness of breath, recent head strike, or other recent trauma. Related Data Previous Rx's ?Medication ?Instructions ?Recorded acetaminophen 500 mg tablet 1,000 mg (2 x 500 mg) PO QID PRN 10/02/20 (Tylenol Extra Strength) fever or pain #14 tabs ferrous sulfate 325 mg (65 mg 325 mg PO DAILY Iron deficiency 10/02/20 iron) tablet anemia #30 tabs ibuprofen 400 mg tablet 400 mg PO Q6H PRN pain #14 tabs 10/02/20 benzonatate 200 mg capsule 200 mg PO TID PRN cough #30 caps 10/31/21 doxycycline hyclate 100 mg tablet 100 mg PO BID #20 tabs 10/31/21 prednisone 20 mg tablet 40 mg (2 x 20 mg) PO DAILY #10 tabs 10/31/21 nitrofurantoin 100 mg PO BID 7 days #14 caps 12/15/21 monohydrate/macrocrystals 100 mg capsule (Macrobid) ondansetron 4 mg disintegrating 4 mg PO Q8H #14 tabs 12/15/21 tablet cyclobenzaprine 10 mg tablet 10 mg PO TID PRN muscle spasm #14 12/31/21 tabs lidocaine 5 % topical patch 1 patch topical DAILY #30 ea 12/31/21 cyclobenzaprine 5 mg tablet 5 mg PO TID PRN muscle spasm #10 05/02/22 tabs ondansetron 4 mg disintegrating 4 mg PO Q6-8H PRN nausea and 05/02/22 tablet vomiting #7 tabs glycerin (adult) 1 supp NM BID PRN constipation #25 08/25/22 ea magnesium citrate (Citrate of 150 ml PO BID PRN constipation 08/25/22 Magnesia oral) #1,500 mL sennosides 8.6 mg-docusate sodium 1 tab-cap PO BEDTIME #14 tabs 08/25/22 50 mg tablet (Senokot-S) Allergies Allergy/AdvReac Type Severity Reaction Status Date / Time cephalexin (From Keflex) Allergy Rash Verified 01/22/25 18:54 droperidol Allergy Anaphylaxis Verified 01/22/25 18:54 Penicillins Allergy Rash Verified 01/22/25 18:54 Sulfa (Sulfonamide Allergy Rash Verified 01/22/25 18:54 Antibiotics) Review of Systems Review of Systems: Yes all other systems are reviewed and are negative [facility] Past Medical History Medical History Celiac disease Colitis Hypertension Left-sided weakness Surgical History History of cholecystectomy Social History Social History Alcohol intake: never Patient Tobacco Use Status: Never used Tobacco Smoked in Last 30 Days: No Use of substances other than those prescribed or required for medical reasons: No Advance Directives: No Advance Directives Information Provided: No Do you have a plan to hurt others: No Plan Patient : No Physical Exam Vital Signs: Vital Signs: Last Vital Signs Temp 98.1 F 01/23/25 02:16 Pulse 80 01/23/25 02:16 Resp 15 01/23/25 02:16 BP 115/89 01/23/25 02:16 Pulse Ox 94 01/23/25 02:16 O2 Del Method Room Air 01/23/25 02:16 BMI result Body Mass Index 39.9 CONSTITUTIONAL: The patient appears uncomfortable but otherwise non-toxic, well nourished and in no acute distress. Vital signs as documented. HEAD: Atraumatic, normocephalic. EYES: EOMs intact, pupils equal, conjunctiva clear, no exudate. ENT: Nares patent, no discharge. Airway patent, no audible stridor, visible mucosa is pink and moist without noted lesions. NECK: Trachea is midline, no obvious masses or gross abnormalities. CHEST: Symmetric movement, normal appearance. LUNGS: LS present and CTAB, no w/r/r. Non-labored work of breathing. CARDIAC: Regular Rhythm, S1/S2 appreciated, no murmurs, rubs or gallops. ABDOMEN: Abdomen soft and non-tender x4 quadrants, no palpable masses or organomegaly. : Deferred. EXTREMITIES: Normal tone, moves all extremities spontaneously without reported pain. No obvious acute injury or deformity noted. NEURO: Alert and oriented x3, CN II-XII intact. Cerebellar Functioning intact. No sensory or motor deficits. Speech clear and appropriate. PSYCH: normal affect, appropriate eye contact, fluid speech, with appropriate response to questioning. No reported suicidality or homicidality. SKIN: Warm, dry, color appropriate, normal turgor. No rashes noted. Course Course Course Narrative: Geri Aldridge PLASTICS SCIENTIST 01/22 1853 This is rapid of medical exam. Deferred additional HPI, ROS, PE to primary provider. Here for migraine last week in ER, had two home visits with IV meds this week, continued headache, blurry vision On prednisone through neurology. Will need IV meds VSS Medications Administered Discontinued Medications Generic Name Dose Route Start Last Admin Trade Name Freq PRN Reason Stop Dose Admin Clonazepam 1 mg 01/23/25 01:47 01/23/25 02:11 Clonazepam 1 Mg Tablet PO 01/23/25 01:48 1 mg ONCE ONE Administration Sodium Chloride 1,000 mls @ 999 mls/hr 01/22/25 22:30 01/23/25 02:49 Ns IV 01/22/25 23:30 Infused .Q1H1M TERE Infusion Morphine Sulfate 4 mg 01/22/25 22:30 01/22/25 23:54 Morphine Sulfate 4 Mg/Ml Cartridge IVPUSH 01/22/25 22:31 4 mg ONCE ONE Administration Protocol Morphine Sulfate 4 mg 01/23/25 01:46 01/23/25 02:10 Morphine Sulfate 4 Mg/Ml Cartridge IVPUSH 01/23/25 01:47 4 mg ONCE ONE Administration Protocol Ondansetron HCl 4 mg 01/22/25 22:30 01/22/25 23:54 Ondansetron Hcl 4 Mg/2 Ml Vial IVPUSH 01/22/25 22:31 4 mg ONCE ONE Administration Medical Decision Making Medical Decision Making [facility] Narrative: 12:31 AM 01/23/2025 (Suzette VAZQUEZ): The patient is a 54-year-old female with a history of migraine headaches, anxiety, depression, personality disorder, PTSD, colitis, and celiac disease, presenting to the ED for evaluation of migraine headache which began earlier this week, patient was seen at a outside hospital ([facility]) and treated with migraine cocktail, patient received temporary relief and was discharged. The patient's neurologist started her on a Medrol Dosepak. Despite these interventions the patient's headache recurred and she contacted her insurance company who offers an in-home medical claims examiner service, patient reports twice this week she received additional migraine cocktails from her insurance company's in-home medical claims examiner. Patient reports despite these interventions the last 2 days, she again today is having severe headache and presents to the ED for management. The patient reports associated blurred vision, left-sided paresthesias, and subjective left-sided weakness. Patient reports this is often the presentation of her migraine headaches, however symptoms most often resolve following migraine cocktails. The patient denies associated fever/chills, nausea, vomiting, chest pain, shortness of breath, recent head strike, or other recent trauma. In the ED patient appears uncomfortable but in no acute distress. Neurologic exam is benign, laboratory evaluation is reassuring, no leukocytosis, significant anemia, electrolyte abnormality, or FLAQUITA. Despite reassuring workup and exam, given the intractable nature of her headache, a CT was ordered. The patient's CT resulted and shows no acute intracranial pathology. The patient has a history of poor IV access requiring ultrasound-guided IVs. Multiple attempts have been made to place IV for IV fluid hydration and morphine administration. This provider we will attempt to place IV for pain management. 3:40 AM 01/23/2025 (Suzette VAZQUEZ): IV was established with ultrasound guidance and patient was treated with IV fluids, morphine, and her nighttime dose of Klonopin. The patient's symptoms have improved dramatically following medication administration in the ED. Patient is now requesting discharge. The patient will be discharged with instructions to follow up with PCP and neurologist.. Admission/Observation Consideration of admission/observation: Escalation of care including admission/observation considered Lab Data MDM Lab Attestation statement: I reviewed the patient's lab results. 01/22/25 19:05 01/22/25 19:05 Labs: Lab Results 01/22/25 Range/Units 19:05 WBC 9.6 (4.8-10.8) X10*3/uL RBC 4.45 (4.20-5.50) X10*6/uL Hgb 11.8 L (12.0-16.0) g/dl Hct 38.0 (37.0-47.0) % MCV 85.4 (80.0-98.0) fL MCH 26.5 L (27.0-33.0) pg MCHC 31.1 (31.0-35.0) g/dl RDW 19.2 H (11.0-16.0) % Plt Count 292 (160-400) X10*3/uL MPV 10.2 (9.4-12.3) fL Immature Gran % (Auto) 0.9 H (0.0-0.4) % Neut % (Auto) 80.1 H (45-73) % Lymph % (Auto) 13.6 L (20-40) % Barbour % (Auto) 5.1 (2-11) % Eos % (Auto) 0.1 (0-4) % Baso % (Auto) 0.2 (0-2) % Lymph # (Auto) 1.3 (1.2-4.9) X10*3/uL [place]bour # (Auto) 0.5 (0.1-1.2) X10*3/uL Eos # (Auto) 0.0 (0.0-0.4) X10*3/uL Baso # (Auto) 0.0 (0.0-0.2) X10*3/uL Abs Immat Gran (auto) 0.09 H (0.00-0.03) X10*3/uL Absolute Neuts (auto) 7.7 (2.0-8.3) x10*3/uL Absolute Nucleated RBC 0.000 (0.0-0.012) X10*3/uL Nucleated RBC % (auto) 0.0 (0.0-0.2) /100WBC Sodium 140 (135-145) mmol/L Potassium 4.9 (3.3-5.1) mmol/L Chloride 109 H (96-108) mmol/L Carbon Dioxide 21 L (22-29) mmol/L Anion Gap 15 (12-20) BUN 19 H (9-16) mg/dL Creatinine 1.15 (0.5-1.4) mg/dL Estim Creat Clear Calc 48.3 Estimated GFR 49 Random Glucose 128 H (60-115) mg/dL Calcium 9.0 (8.4-10.2) mg/dL Radiology Impression Discussion of test interpretation with radiology: I have reviewed the radiologist's reading. Radiologist Impression: CT head without contrast Comparison: CT/REG/SR - CT HEAD WITHOUT IV CONTRAST - 08/03/22 17:15 EDT Findings: No intra-axial mass, midline shift, hydrocephalus, or acute hemorrhage. No significant atrophy-like change or white matter disease. The visualized paranasal sinuses and mastoid air cells are normal. The orbits are unremarkable. No skull fracture. IMPRESSION: 1. No acute intracranial findings. This document has been electronically signed by: Davis Cruz MD on 01/23/2025 00:17:41 Prescription Management I considered prescription management with: Pain Medication Discharge Plan Discharge Clinical Impression: Migraine headache Patient Disposition: Home, Self-Care Instructions: Migraine Headache (ED) Additional Instructions: Thank you for choosing [facility]'s Emergency Department for your care today. Thankfully your CT, laboratory evaluation, and exam today are all reassuring and showed no evidence of acute stroke or other dangerous cause for your symptoms. Your symptoms are likely related to a severe presentation of your migraine headaches. Thankfully your symptoms improved following interventions in the ED. At this time there is no indication for admission to the hospital or continued ED observation, and it is safe to discharge you home. You should take alternating (staggered) doses of ibuprofen 600mg and Tylenol 1000mg every 4 hours as needed for any additional pain. Please continue taking all your regularly prescribed medications. Please stay well hydrated and get plenty of rest. Please follow up with your primary care physician for re-evaluation, additional management of your symptoms, and continued preventative care. If you do not have a primary care physician, please call the [facility] at [phone] to establish a new primary care physician. While waiting to establish your new primary care physician, you can call our Walk-in Care [facility] at [phone] for non-emergency needs. Please return to the emergency department if you develop a severe or sudden change in your symptoms, a fever over 100.4 that does not improve with Tylenol or Ibuprofen, recurrent vomiting, or any other new or worsening symptoms or concerns. Prescriptions: No Action acetaminophen [Tylenol Extra Strength] 500 mg tablet 1,000 mg PO QID PRN (Reason: fever or pain) Qty: 14 0RF ibuprofen 400 mg tablet 400 mg PO Q6H PRN (Reason: pain) Qty: 14 0RF ferrous sulfate 325 mg (65 mg iron) tablet 325 mg PO DAILY Qty: 30 0RF benzonatate 200 mg capsule 200 mg PO TID PRN (Reason: cough) Qty: 30 0RF doxycycline hyclate 100 mg tablet 100 mg PO BID Qty: 20 0RF prednisone 20 mg tablet 40 mg PO DAILY Qty: 10 0RF nitrofurantoin monohyd/m-cryst [Macrobid] 100 mg capsule 100 mg PO BID 7 Days Qty: 14 0RF Rx Instructions: must administer with a meal/food ondansetron 4 mg tablet,disintegrating 4 mg PO Q8H Qty: 14 0RF cyclobenzaprine 10 mg tablet 10 mg PO TID PRN (Reason: muscle spasm) Qty: 14 0RF lidocaine 5 % adhesive patch,medicated 1 patch topical DAILY Qty: 30 0RF Rx Instructions: leave on most painful area for up to 12 hrs cyclobenzaprine 5 mg tablet 5 mg PO TID PRN (Reason: muscle spasm) Qty: 10 0RF ondansetron 4 mg tablet,disintegrating 4 mg PO Q6-8H PRN (Reason: nausea and vomiting) Qty: 7 0RF magnesium citrate [Citrate of Magnesia] Solution 150 ml PO BID PRN (Reason: constipation) Qty: 1500 0RF sennosides-docusate sodium [Senokot-S] 8.6-50 mg tablet 1 tab-cap PO BEDTIME Qty: 14 0RF glycerin (adult) Suppository 1 supp NM BID PRN (Reason: constipation) Qty: 25 0RF Referrals: Edie Bee MD [Primary Care Provider, Medical] Clinical Impression: Migraine headache Print Language: Paraguayan
[2025-01-22 18:53] VITALS: BP 131/77; PULSE 95; RESP 16; TEMP 36.9; O2SAT 96; BMI 39.9
[2025-01-22 19:10] LABS: MANUAL DIFF FLAG NO
[2025-01-22 19:30] LABS: Anion Gap 15 (12-20); Blood Urea Nitrogen 19 mg/dL (9-16); Calcium 9.0 mg/dL (8.4-10.2); Carbon Dioxide 21 mmol/L (22-29); Chloride 109 mmol/L (96-108); Creatinine Clr Calc Pharmacy 48.3; Estimated Glomerular Filt Rate 49; Potassium 4.9 mmol/L (3.3-5.1); Sodium 140 mmol/L (135-145)
[2025-01-22 19:37] LABS: Hematocrit 38.0 % (37.0-47.0); Hemoglobin 11.8 g/dl (12.0-16.0); Imm Gran Abs Auto 0.09 X10*3/uL (0.00-0.03); Imm Gran Pct Auto 0.9 % (0.0-0.4); Lymphocytes Absolute Auto 1.3 X10*3/uL (1.2-4.9); Mean Corpuscular HGB Conc 31.1 g/dl (31.0-35.0); Mean Corpuscular Hemoglobin 26.5 pg (27.0-33.0); Mean Corpuscular Volume 85.4 fL (80.0-98.0); NRBC Abs Auto 0.000 X10*3/uL (0.0-0.012); NRBC Pct Auto 0.0 /100WBC (0.0-0.2); Platelet Count 292 X10*3/uL (160-400); Red Blood Count 4.45 X10*6/uL (4.20-5.50); White Blood Count 9.6 X10*3/uL (4.8-10.8)
--- OUTSIDE RECORDS SUMMARY | 2025-01-22 20:15 | XMS_ITS | Patient Health Record ---
Author Organization [facility] Address [address] [place] [address] Care Team Providers Care Patent Lawyer Name Role Phone Edie Bee Primary Care Provider Dennis Gómez Unavailable [phone] Allergies Allergen (clinical drug ingredient) Drug/Non Drug Allergy documented on EMR Reaction Allergy Type Onset Date Status DROPERIDOL 2.5 MG/ML VIAL (uncoded) Droperidol Allergy 06/29/2019 Active ketorolac Ketorolac rash Drug Allergy Active Penicillin Unknown Drug Allergy Active Substance with sulfonamide structure and antibacterial mechanism of action (substance) Sulfa Antibiotics Unknown Drug Allergy Active Reason For Referral No Information Medications Medication SIG (Take, Route, Frequency, Duration) Notes Start Date End Date Status Spironolactone 50 MG 2 tablet Orally Once a day Active amLODIPine Besylate 5 MG 1 tablet Orally Once a day Active Fluticasone Propionate 50 MCG/ACT 1 spray in each nostril Nasally Once a day Active Ipratropium [place] 0.03 % as directed Inhalation Twice a day Active MULTIVITAMINS TABLET 0; Duration: 30 *please rev iew for potential _update for e-prescription and drug interaction check* 12/22/2010 Active Levoxyl 100 MCG 0 Oral 1 qam; Duration: 30 incr 06/28/2014 Active Ambien 5 MG 1 tablet at bedtime Orally Once a day 12/16/2021 Active MAGNESIUM 400 MG CAPS 0 1 qam; Duration: 30 *please review for potential _update for e-prescription and drug interaction check* 03/04/2018 Active lamoTRIgine 200 MG 1 tablet Orally Once a day 09/29/2023 Active Lyrica 75 MG 1 capsule Orally every 8 hours; Duration: 30 days Active Ondansetron 8 MG 1 tablet on the tongue and allow to dissolve as needed Orally Once a day Active acetaZOLAMIDE 250 MG TAKE 3 TABLETS BY MOUTH TWICE A DAY; Duration: 90 Active DuoNeb Active clonazePAM 1 MG 1 tablet Orally tid Active Social History Tobacco Use: Social History Observation Description Date Details (start date - stop date) Never Smoker NA - NA Tobacco Use/Smoking Question Answer Notes Tobacco use: nonsmoker Section Notes: Lives alone. Not working cur rently, stopped working shortly after TBI in 2015. Lives alone. Not working cur rently, stopped working shortly after TBI in 2015. Lives alone. Not working cur rently, stopped working shortly after TBI in 2015. 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) Active confirmed Problem Chronic peripheral venous hypertension (disorder) (375936058) Chronic venous hypertension (idiopathic) without complications of unspecified lower extremity (I87.309) Active confirmed Problem Weakness (24558003) Weakness (R53.1) Active confirmed Plan Of Treatment Pending Test Test Name Order Date Amylase, Serum 07/16/2022 Lipase, Serum 07/16/2022 CBC With Differential/Platelet 3 Electrolyte Panel 07/16/2022 Hepatic Function Panel (7) 07/16/2022 Insurance Providers Payer Name Payer Address Payer Phone Subscriber Number Group Number Insured Name Patient Relationship to Insured Coverage Start Date Coverage End Date [facility] [address] [address] [place], [place] [id number] Lise Medrano Self - patient is the insured Medical (General) History Medical History History ICD Code Chronic back pain with lumbar radiculopa thy Bilateral hip bursitis TBI in 2016 Increased Intracranial Hypertension Migraines Depression PTSD Ulcerative colitis Celiac disease Asthma COPD Low potassium Surgical History Surgery Date(Month/Year) Tonsillectomy and adenoidectomy Cholecystectomy 2001 Left elbow surgery
--- OUTSIDE RECORDS SUMMARY | 2025-01-22 20:15 | XMS_ITS | Encounter Summary ---
Author Organization [facility] Address [address] [place] [address] Encounters * CPT with Medical [facility] at [facility] on 2025-01-07 I have had a very severe migraine and nausea all day and nothing is working. { reasonForRequest : Patient waking up in the middle of the night with Migraines - nothing is helping. headache. , patientReports : Head pain not relieved by medication greater than 8 hours; Head pain greater than 8 hours -unrelated to falls or injury; Head pain with nausea vomiting; Dizziness with positional change; Sensitive to light , denies :[ Worst Headache of life , New onset of vision loss , Sudden onset -unilateral weakness/gait disturbance , Fall with head strike and altered LOC , New onset of Slurred speech or difficulty finding words , Sudden Mental status changes ,"Head pain with fever chills and neck pain , Seizure activity ], chiefComplaints : Headache , pmh : Severe Persistent Mental Illness (SPMI), Asthma, Hypothyroidism, Migraine, Anxiety Disorder, Depression , allergies : Penicillins, Sulfa (Sulfonamide Antibiotics), Keflex, Toprol Xl , otherAllergies :null, pain Assessment : , visitOutcome : , additionalComments :"54 y.o female complains of Headache\nPatient states she has a headaches since the middle of the night. She has tried ice and Excedrin migraine not helping hx of migraines. endorses nausea but novomiting. endorses being sensitive to light. denies any visual changes. denies being on any blood thinners. requesting insted visit. \nI provided information on the mobile health provider response time and advised the patient and/or caregiver to monitor reported signs and symptoms. I discussed the warning signs of when to seek emergency care. } [facility] dispatched to the address listed above for the report of a female democrat with migraine. Arrivalon scene, patient was found inside residence seated on couch, alert and oriented x4, patent airway,breathing non labored speaking in complete sentences, skin WPD in no obvious distress. +/= Chest rise. -SOB, -CP, +Nausea, -Vomiting/Diarrhea, -Trauma, -Fever. GCS 15. Lung sounds clear in all marroquin. Patient reports history of Migraines, reports migraine flare up going for about a week with symptoms including headache, light sensitivity, nausea and reduced food/fluid intake as a result of nausea. Patient reports that she has taken Excedrin without relief, denies taking any Tylenol/Ibuprofen. Patient reports that she took Zofran for nausea earlier without relief. Patient reports symptoms feelsimilar to prior migraines. Patient denies fever/chills, recent trauma, chest pain, vomiting/diarrhea, shortness of breath, dizziness, visual changes, abdominal pain. Patient vital signs obtained as noted. [facility] consulted, provided orders for IV access with BMP. IV access attempted x2 in right wrist a nd left AC but unsuccessful. Minimal access noted, patient reports she normally requires US when she goes to the hospital. [facility] consulted again, provided orders for 30mg Toradol IM and 10mg Reglan IM.30mg Toradol IM administered in left deltoid and 10mg Reglan IM administered in right deltoid without incident, six patient rights verified. [facility] advised no further testing or treatments. Red flags discussed with patient and advised to call 911 if condition worsened. Patient advised to stay hydrated, get plenty of rest, and can take Tylenol 500-1000mg every 6-8 hours as needed. Patient had no further questions or concerns. SC12 Clear. IV_(FLUIDS_AND/OR_MEDICATION), MEDICATION_IM, EKG, POC_FLU_STREP, COVID_TEST Written by Medical instED on 2025-01-07
--- OUTSIDE RECORDS SUMMARY | 2025-01-22 20:16 | XMS_ITS | Continuity of Care Document ---
Author Name [facility], Medical Address [address] [place] [id number] Organization Unknown Address [address] [place] [address] Medications No known medications Problems No known problems
--- OUTSIDE RECORDS SUMMARY | 2025-01-22 20:16 | XMS_ITS | Encounter Summary ---
Author Organization [facility] Address [address] [facility] [address] [place] [address] Phone Care Team Providers Care Mercury Cell Cleaner Name Role Phone Dewayne Hercules MD Primary Care Provider [phone] Pcp, Unknown Primary Care Provider Edie Crawley MD Primary Care Pro vider Encounter Details Date Type Department Care Team (Late st Contact Info) Description 05/19/2018 Procedure Pass [facility] [address] [place] [address] Social History Tobacco Use Types Packs/Day Years Used Date Smoking Tobacco: Never Smokeless Tobacco: Never Alcohol Use Standard Drinks/Week Comments No 0 (1 standard drink = 0.6 oz pur e alcohol) Comments No Sex and Gender Information Value Date Recorded Sex Assigned at Female 01/27/2022 4:46 PM EDT Legal Sex Female 10:22 AM EDT Gender Identity Female 01/27/2022 4:46 PM EDT Sexual Orientation Straight 01/27/2022 4: 46 PM EDT documented as of this encounter Plan of Treatment Not on file documented as of this encounter Visit Diagnoses Not on filedocumented in this encounter Care Teams Mercury Cell Cleaner Relationship Specialty Start Date End Date Dewayne Hercules MD [address] [place] [address] PCP - General Internal Medicine 07/31/17 01/03/19 Pcp, Unknown PCP - General 01/04/19 01/26/22 Edie Bee MD PCP - General Internal Medicine 01/27/22 documented as of this encounter Additional Source Comments The information contained in this document represents components of the legal health record. It is not the complete legal health record.[facility]
--- OUTSIDE RECORDS SUMMARY | 2025-01-22 20:16 | XMS_ITS | Encounter Summary ---
Author Organization [facility] Address [address] [place] [address] Care Team Providers Care Keyseating Machine Set Up Operator Name Role Phone Nasima Narayan Primary Care Provider [phone] Encounter Details Date Type Department Care Team (Late st Contact Info) Description 02/03/2020 Community Orders [facility] EpicCare Link [address] [place] [address] Dennis Lubin MD [address] [place] [address] Social History Tobacco Use Types Packs/Day Years Used Date Smoking Tobacco: Never Smokeless Tobacco: Never Alcohol Use Standard Drinks/Week Comments Not Currently 0 (1 standard drink = 0.6 oz pur e alcohol) Comments No Sex and Gender Information Value Date Recorded Sex Assigned at Female 06/15/2020 9:56 AM EDT Legal Sex Female 12:05 AM EDT Gender Identity Female 06/15/2020 9:56 AM EDT Sexual Orientation Straight 06/15/2020 9: 56 AM EDT documented as of this encounter Plan of Treatment Not on file documented as of this encounter Visit Diagnoses Not on filedocumented in this encounter Care Teams Keyseating Machine Set Up Operator Relationship Specialty Start Date End Date [facility] [address] [address] PCP - General Internal Medicine 07/04/21 documented as of this encounter
--- OUTSIDE RECORDS SUMMARY | 2025-01-22 20:16 | XMS_ITS | Encounter Summary ---
Author Organization [facility] Address [address] [place] [address] Care Team Providers Care Plastic Production Machine Setter Name Role Phone Nasima Narayan Primary Care Provider [phone] Encounter Details Date Type Department Care Team (Late st Contact Info) Description 01/18/2020 Community Orders [facility] EpicCare Link [address] [place] [address] Dennis Lubin MD [address] [place] [address] Social History Tobacco Use Types Packs/Day Years [...] Diagnoses Not on filedocumented in this encounter Additional Health Concerns Infection Onset Date Last Indicated Resolved Time COVID-19 - Suspected infection 01/18/2020 01/18/2020 01/18/2020 7:10 AM EDT COVID-19 Surveillance 01/18/2020 01/18/20202019 1:46 PM EDT documented as of this encounter Care Teams Plastic Production Machine Setter Relationship Specialty Start Date End Date Nasima Narayan [address] [place] [address] PCP - General Internal Medicine 07/04/21 documented as of this encounter
--- OUTSIDE RECORDS SUMMARY | 2025-01-22 20:16 | XMS_ITS | Clinical Summary ---
Author Organization [facility] Address [address] [facility] [place] [address] Phone Care Team Providers Care Exhibits Curator Name Role Phone Edie Bee MD Primary Care Pro vider Allergies Active Allergy Reactions Criticality Noted Date Comments Droperidol Anaphylaxis High 11/14/2009 Cephalexin Swelling High 05/24/2018 Oxycodone-Acetaminophen 11/14/2009 Pt denies Penicillin Rash Low 11/14/2009 Sulfa (Sulfonamide Antibiotics) Rash Low 10/28 Medications mesalamine (APRISO) 0.375 gram 24 hr capsule APRISO 0.375 GM [id number] 04/11/19 17 Active benzonatate (TESSALON) 100 MG capsule BENZONATATE 100 MG CAPS 12/10/19 17 Active butalbital-acetami nophen-caffeine (FIORICET, ESGIC) 50-325-40 mg per tablet [id number] AFFEINE 50-325-40 MG TABS 12/11/19 17 Active clonazePAM (KLONOPIN) 1 MG tablet CLONAZEPAM 1 MG TABS bid 11/05/19 17 Active DULoxetine (CYMBALTA) 60 MG capsule DULOXETINE HCL 60 MG CPEP 120mg in am 11/05/19 17 Active levothyroxine (SYNTHROID, LEVOTHROID) 100 MCG tablet LEVOTHYROXINE SODIUM 100 MCG TABS, 125mg daily 07/24/19 17 Active pregabalin (LYRICA) 75 MG capsule LYRICA 75 MG CAPS bid 07/17/19 17 Active ondansetron (ZOFRAN-ODT) 4 MG disintegrating tablet ONDANSETRON 4 MG TBDP as needed 12/22/19 17 Active brexpiprazole (REXULTI) 1 mg tablet REXULTI 1 MG TABS 11/26/19 17 Active traZODone (DESYREL) 150 MG tablet TRAZODONE HCL 150 MG TABS 300 mg nightly 11/05/19 17 Active magnesium oxide 250 mg (150 mg elemental) Tab Take 400 mg by mouth daily. Active omeprazole (PRILOSEC) 40 MG capsule Take 1 capsule (40 mg total) by mouth 2 (two) times a day (once in the morning and once in the afternoon). 60 capsule 12 01/29/20 22 Active fluticasone propionate (FLOVENT HFA) 220 mcg/actuation inhaler Inhale 4 puffs into the lungs 2 (two) times a day. 4 puffs twice a day. Hi dose for severe asthma. 12 g 12 01/29/20 22 Active inhaler spacing device (AEROCHAMBER,BREAT HERITE) Spcr Inhale 1 each into the lungs as needed. 1 each 2 01/29/20 22 Active Active Problems Problem Noted Date Diagnosed Date Neck pain 06/04/2016 Presence of other specified functional implants 06/04/2016 Celiac disease 11/14/2009 Depression 11/14/2009 Migraine headache 11/14/2009 Social History Tobacco Use Types Packs/Day Years Used Date Smoking Tobacco: Never Smokeless Tobacco: Never Alcohol Use Standard Drinks/Week Comments No 0 (1 standard drink = 0.6 oz pur e alcohol) Education Answer Date Recorded Are you interested in more education? Not on ryne e 07/25/2022 Are you concerned about learning? Not on file 07/25/2022 No 07/25/2022 No 07/25/2022 Digital Access Answer Date Recorded No 08/19/2022 No 08/19/2022 No 08/19/2022 Reliable internet access at home? Not on file 08/19/2022 Device with a working camera? Not on file Comments No Sex and Gender Information Value Date Recorded Sex Assigned at Female 01/27/2022 4:46 PM EDT Legal Sex Female 10:22 AM EDT Gender Identity Female 01/27/2022 4:46 PM EDT Sexual Orientation Straight 01/27/2022 4: 46 PM EDT Last Filed Vital Signs Vital Sign Reading Time Taken Comments Blood Pressure 114/69 04/08/2022 9:58 AM EST Pulse 89 04/08/2022 9:58 AM EST Temperature 37 C (98.6 F) 04/08/2022 9:58 AM EST Respiratory Rate 24 04/08/2022 9:58 AM EST Oxygen Saturation 98% 04/08/2022 9:58 AM EST Inhaled Oxygen Concentration - - Weight 82.6 kg (182 lb) 04/08/2022 9:58 AM EST Height 144.8 cm (4' 9 ) 04/08/2022 9:58 AM EST Body Mass Index 39.38 04/08/2022 9:58 AM EST Plan of Treatment Health Maintenance Due Date Last Done Comments LIPID PANEL 1971 HIV ONE-TIME SCREENING (18-65 YEARS) 11/26/1989 PAP SMEAR 11/26/1992 SCREENING FOR DIABETES 11/26/2006 MAMMOGRAM 2011 COLOGUARD 11/26/2016 COLONOSCOPY 11/26/2016 COLORECTAL CANCER SCREENING 11/26/2016 FIT TEST 11/26/2016 FOBT 11/26/2016 SIGMOIDOSCOPY 11/26/2016 VIRTUAL COLONOSCOPY 11/26/2016 TSH LEVEL 01/15/2021 01/16/2020 PNEUMOCOCCAL VACCINES (50+ years) (1 of 1 - PCV) 11/26/2021 ZOSTER VACCINES (1 of 2) 11/26/2021 DEPRESSION SCREENING 01/28/2023 01/28/2022 INFLUENZA VACCINE (#1) 2024 , 02/06/2021, 01/05/2015, Additional history exists COVID-19 VACCINE ( season) 2024 02/06/2021, 06/29/2020, 05/30/2020 Adult Td,Tdap Booster 08/16/2030 08/16/2020 RSV VACCINE (1 - 1-dose 75+ series) 11/26/2046 HEPATITIS C SCREENING Completed 01/18/2020 SMOKING STATUS SCREENING (Once After 26 Yrs) Completed 01/28/2022 HEPATITIS A VACCINES Aged Out No long er eligible based on patient's age to complete this topic HIB VACCINES Aged Out No longer eligi ble based on patient's age to complete this topic MENINGOCOCCAL VACCINES (ACWY) Aged Out No longer eligible based on patient's age to complete this topic MENINGOCOCCAL VACCINES (B) Aged Out N o longer eligible based on patient's age to complete this topic Medical Devices Implanted Type Area Piece Meat Trimmer Device Identifier Shelf Expiration Date Model / Serial / Lot Spinal Cord Stimulator Insurance MEDICARE PART A & B [facility] ONE CARE MEDICARE REPLACEMENT [employer] [id number] MEDICARE PART A & B MEDICARE PART A & B ONE CARE MEDICARE REPLACEMENT MEDICARE PART A & B [facility] ONE CARE MEDICARE REPLACEMENT MEDICARE PART A & B ONE CARE MEDICARE REPLACEMENT MEDICARE PART A & B Member Subscriber Plan / Payer (Ef fective 2017-Present) Name:Lise Grace Member ID:[id number] Relation to Subscriber:Self Name:Lise Grace Subscriber ID:[id number] Payer ID:[id number] Group ID:Not on file Type:Medicare Address: [employer] [address] ONE CARE MEDICARE REPLACEMENT MEDICARE PART A & B ONE CARE MEDICARE REPLACEMENT MEDICARE PART A & B ONE CARE MEDICARE REPLACEMENT [facility] MEDICARE PART A & B Member Subscriber Plan / Payer ( fective 2017-Present) Name:Lise Grace Member ID:[id number] Relation to Subscriber:Self Name:Lise Grace Subscriber ID:[id number] Payer ID:[id number] Group ID:Not on file Type:Medicare Address: [employer] [address] ONE CARE MEDICARE REPLACEMENT MEDICARE PART A & B [facility] ONE CARE MEDICARE REPLACEMENT [address] [place] [address] [address] [place] [address] Care Teams Exhibits Curator Relationship Specialty Start Date End Date Edie Bee MD PCP - General Internal Medicine 01/27/22 Additional Source Comments The information contained in this document represents components of the legal health record. It is not the complete legal health record.[facility]
--- OUTSIDE RECORDS SUMMARY | 2025-01-22 20:16 | XMS_ITS | Patient Health Record ---
Author Organization [facility] li[facility] Address [address] [place] [address] Care Team Providers Care Capital Project Engineer Name Role Phone Edie Bee Primary Care Provider Rama Aviles Unavailable [phone] Clinical, Operations Unavailable Unavailable Sophia Smallwood Unavailable [phone] Rosa Verde Unavailable [phone] Dr. Edie Bee Unavailable Amy Olivarez Unavailable [phone] Allergies Allergen (clinical drug ingredient) Drug/Non Drug Allergy documented on EMR Reaction Allergy Type Onset Date Status droperidol Droperidol (uncoded) anaphylaxis Allergy Active Treenuts (uncoded) Unknown Allergy 01/01/2020 Active Keflex rash Drug Allergy Active buprenorphine Butrans rash Drug Allergy Act adonay Sulfa hives Drug Allergy Active Penicillin hives Drug Allergy Active Results Component Value Reference Range Notes Syphilis Treponemal Antibodi es, Treponema pallidum Particle Agglutination (TPPA) - 271014 Reviewed date:12/06/2024 10:29:24 AM Interpretation:Non-Reactive Performing Lab: Notes/Report: Non-Reactive Treponemal Antibodies, TPPA Non-reactive Hemoglobin [id number] Reviewed date:12/06/2024 10:29:35 AM Interpretation:5.0% Performing Lab: Notes/Report: 5.0% Hemoglobin A1c 5.0% Lipid Panel-[id number] Reviewed date:12/06/2024 10:29:29 AM Interpretation:TC 196 Trig 215 HDL 38 LDL 115 Performing Lab: Notes/Report: TC 196 Trig 215 HDL 38 LDL 115 Cholesterol, Total 196 Triglycerides 215 HDL Cholesterol 38 LDL Chol Calc (NIH) 115 TSH Rfx on Abnormal to Free [id number] Reviewed date:04/11/2024 11:28:03 AM Interpretation: Performing Lab: Notes/Report: TSH 0.65 TSH Rfx on Abnormal to Free [id number] Reviewed date:11/04/2024 08:49:18 AM Interpretation:1.62 Performing Lab:[address], Phone - [phone], Director - MDJodry Notes/Report: TSH 1.620 0.450-4.500 uIU/mL Comp. Metabolic Panel (14)-3 Reviewed date:11/04/2024 08:46:56 AM Interpretation:Cr 1.02, BUN 24 Performing Lab:[address], Phone - [phone], Director - MDdry Notes/Report: Glucose 87 70-99 mg/dL BUN 24 6-24 mg/dL Creatinine 1.02 0.57-1.00 mg/dL eGFR 66 >59 mL/min/1.73 BUN/Creatinine Ratio 24 9-23 Sodium 141 134-144 mmol/L Potassium 3.9 3.5-5.2 mmol/L Chloride 103 96-106 mmol/L Carbon Dioxide, Total 18 20-29 mmol/L Calcium 9.7 8.7-10.2 mg/dL Protein, Total 7.0 6.0-8.5 g/dL Albumin 4.5 3.8-4.9 g/dL Globulin, Total 2.5 1.5-4.5 g/dL Bilirubin, Total <0.2 0.0-1.2 mg/dL Alkaline Phosphatase 109 44-121 IU/L AST (SGOT) 16 0-40 IU/L ALT (SGPT) 17 0-32 IU/L Vitamin D, 95-[id number] Reviewed date:11/04/2024 07:29:34 AM Interpretation:36.1 Performing Lab:[address], Phone - [phone], Director - LALizdry Notes/Report: Vitamin D, 25-Hydroxy 36.1 30.0-100.0 ng/mL Vitamin D deficiency has been defined by the [place] of Medicine and an Endocrine Society practice guideline as a level of serum 25-OH vitamin D less than 20 ng/mL (1,2). The Endocrine Society went on to further define vitamin D insufficiency as a level between 21 and 29 ng/mL (2). 1. IOM ([place] of Medicine). 2010. Dietary reference intakes for calcium and D. [place]: The National Academies Press. 2. Catherine MF, Miguelito NC, Fina TOLEDO, et al. Evaluation, treatment, and prevention of vitamin D deficiency: an Endocrine Society clinical practice guideline. JCEM. 2010; 96(9):1911-30. Comp. Metabolic Panel (14)-3 Reviewed date:12/28/2024 06:34:33 PM Interpretation:Normal Performing Lab:Dorota Haas, [address] [facility], Phone - [phone], Director - [facility] Notes/Report: Glucose 98 70-99 mg/dL BUN 16 6-24 mg/dL Creatinine 0.86 0.57-1.00 mg/dL eGFR 81 >59 mL/min/1.73 BUN/Creatinine Ratio 19 9-23 Sodium 139 134-144 mmol/L Potassium 4.0 3.5-5.2 mmol/L Chloride 102 96-106 mmol/L Carbon Dioxide, Total 20 20-29 mmol/L Calcium 9.1 8.7-10.2 mg/dL Protein, Total 6.9 6.0-8.5 g/dL Albumin 4.2 3.8-4.9 g/dL Globulin, Total 2.7 1.5-4.5 g/dL Bilirubin, Total <0.2 0.0-1.2 mg/dL Alkaline Phosphatase 118 49-135 IU/L AST (SGOT) 17 0-40 IU/L ALT (SGPT) 15 0-32 IU/L C-Reactive Protein, Quant-00 [id number] Reviewed date:12/28/2024 03:12:24 PM Interpretation:9 Performing Lab:Dorota Haas, [address] [facility] [place], Phone - [phone], Director - MDJodry Notes/Report: C-Reactive Protein, Quant 9 0-10 mg/L Sedimentation Rate-[facility] n-[id number] Reviewed date:12/28/2024 08:28:22 AM Interpretation:39 Performing Lab:Dorota Haas, [address] [facility], Phone - [phone], Director - Zainab Notes/Report: Sedimentation Rate-Westergren 39 0-40 mm/hr CBC With Differential/Platel et-[id number] Reviewed date:12/28/2024 07:45:35 AM Interpretation:Hgb 11.2, Hct 36.1 Performing Lab:[facility] [place], [address] [place] [address], Phone - [phone], Director - Zainab Notes/Report: WBC 6.1 3.4-10.8 x10E3/uL RBC 4.30 3.77-5.28 x10E6/uL Hemoglobin 11.2 11.1-15.9 g/dL Hematocrit 36.1 34.0-46.6 % MCV 84 79-97 fL MCH 26.0 26.6-33.0 pg MCHC 31.0 31.5-35.7 g/dL RDW 17.9 11.7-15.4 % Platelets 304 150-450 x10E3/uL Neutrophils 56 Not Estab. % Lymphs 31 Not Estab. % Monocytes 7 Not Estab. % Eos 4 Not Estab. % Basos 1 Not Estab. % Neutrophils (Absolute) 3.4 1.4-7.0 x10E3/uL Lymphs (Absolute) 1.9 0.7-3.1 x10E3/uL Monocytes(Absolute) 0.4 0.1-0.9 x10E3/uL Eos (Absolute) 0.3 0.0-0.4 x10E3/uL Baso (Absolute) 0.0 0.0-0.2 x10E3/uL Immature Granulocytes 0 Not Estab. % Immature Grans (Abs) 0.0 0.0-0.1 x10E3/uL Uric Acid-[id number] Reviewed date:12/28/2024 04:18:31 PM Interpretation:5.3 Performing Lab:[facility] [place], [address] [place] [address], Phone - [phone], Director - Zainab Notes/Report: Uric Acid 5.3 3.0-7.2 mg/dL Therapeutic ta rget for gout patients: <6.0 Reason For Referral Reason Barium Swallow Diagnosis 1 Pharyngeal dysphagia (R13.13) Referral Organization [facility] Referring Provider First Name Edie Referring Provider Last Name Cristal Referring Provider Speciality Internal M edicine Referred Provider [facility] ter (Facility) Referred Provider Specialty Radiology General Notes Edie Bee 04/28/2024 05:09:18 PM > Please assist with scheduling barium swallow, Sophia Caro 04/29/2024 08:11:19 AM > forwarding to Rachel Ricks Miranda 04/29/2024 01:22:14 PM >Called [phone] and spoke to Thompson and he advised booked pt for 05/16/24 @ 09:45 AM [facility] Prep no eatin ng or drinking 2 hours before faxed rto [phone] , America Ramos 04/29/2024 03:20:01 PM >Called [phone] and spoke to pt and advised of the appt above .closing Clinical Notes Edie Bee 04/28/2024 05:09:29 PM > 53 year old female with bipolar disorder, anxiety, chronic PTSD, somatization disorder, insomnia, personality disorder, sleep apnea, anemia, hypothyroidism, obesity, HLD, chronic pain syndrome, COPD, GERD, migraine, and severe constipation now s/p colectomy with reported pharyngeal dysphagia with both liquids and solids for approx 1 month Referral Priority Routine Reason Gastroenterology ref erral/return to care (faxed 04/29) (scheduled 04/29) Diagnosis 1 Pharyngeal dysphagia (R13.13) Referral Organization [facility] Referring Provider First Name Edie Referring Provider Last Name Cristal Referring Provider Speciality Internal M edicine Referred Provider [facility] Gastroenter ology Referred Provider Specialty Gastroentero logy General Notes Edie Bee 04/28/2024 05:11:18 PM > Please assist with GI referral, established patient with new issue, Sophia Caro 04/29/2024 08:10:34 AM > forwarding to Scottie Phan Bianca 04/29/2024 08:59:27 AM > Location: [address], [address], [place] [address] Alternative fax #: [phone], Estefany Rubin 04/29/2024 09:01:45 AM > Scottie lazo Bianca 04/29/2024 01:11:18 PM > CSC called and spoke with Anastacia , Appt scheduled for mellisa. August 18 @10:30am with Scottie Benavides Bianca 04/29/2024 01:30:51 PM > CSC called pt and relayed appt information, pt notated, closing Clinical Notes Edie Bee 04/28/2024 05:11:31 PM > 53 year old female with bipolar disorder, anxiety, chronic PTSD, somatization disorder, insomnia, personality disorder, sleep apnea, anemia, hypothyroidism, obesity, HLD, chronic pain syndrome, COPD, GERD, migraine, and severe constipation now s/p colectomy with reported pharyngeal dysphagia with both liquids and solids for approx 1 month (without significant associated weight loss). Ordered barium swallow, may need EGD. Referral Priority Routine Reason Plastic surgery refe rral (faxed 04/29) (f/u 04/29) Diagnosis 1 Macromastia (N62) Referral Organization [facility] Primary Care [facility] Referring Provider First Name Edie Referring Provider Last Name Cristal Referring Provider Speciality Internal M edicine Referred Provider [facility] Plastic Peter tea General Notes Edie Bee 04/28/2024 05:12:57 PM > Please assist with plastic surgery referral, Sophia Caro 04/29/2024 08:10:54 AM > forwarding to Scottie Phan Bianca 04/29/2024 11:08:17 AM > [facility] - [place]: [address], ([address]) [place] [address], Phone#: [phone] Fax #: [phone] Bianca 04/29/2024 01:23:39 PM > CSC called and spoke with Trenton, she provided an new fax #: [phone] , Trenton stated it takes up to 72 hrs for faxes to be processed, csc will f/u next week., Estefany Rubin 04/29/2024 01:28:44 PM > refaxed [phone] Bianca 05/02/2024 01:21:35 PM > [facility] called and spoke with Theodore, fax was received. Theodore stated that the pts BMI is too high. The pts BMI has to be 33 otherwise insurance won't cover the procedure. , Additional requirements: nonsmoker for 3 month minimum, not , not , and a note must be sent to the office from a physical therapist or a chiropractor regarding neck and back pain (showing that the pt has tried other avenues that were unsuccessful). CSC fwd to APC.Evin Christina 05/02/2024 03:51:39 PM > OK to hold for Rama.Michael Sarah 05/03/2024 08:04:41 AM > I had referred her to PT on 04/22/24- please let her know that she needs to do this before we can proceed with referral since [facility] is requesting documentation that other treatment is not successful, she will also have to meet the BMI requirement before we can refer, Estefany Rubin 05/03/2024 10:30:07 AM > CSC outreached to pt and relayed the information. [facility] reminded patient of her PT appt on May 09 @9:15am, patient is confident she can make it to her appt. Closing referral for now until further f/u is required. Clinical Notes Edie Bee 04/28/2024 05:13:08 PM > 53 year old female with bipolar disorder, anxiety, chronic PTSD, somatization disorder, insomnia, personality disorder, sleep apnea, anemia, hypothyroidism, obesity, HLD, chronic pain syndrome, COPD, GERD, migraine, and severe constipation now s/p colectomy with large breasts and chronic neck/back pain seeking evaluation for breast reduction Referral Priority Routine Reason mammogram Diagnosis 1 Encounter for screen ing mammogram for malignant neoplasm of breast (Z12.31) Referral Organization [facility] Primary Care [facility] Referring Provider First Name Edie Referring Provider Last Name Cristal Referring Provider Speciality Internal M edicine Referred Provider [facility] Referred Provider Specialty Mammography Screening Center General Notes Edie Bee 10/13/2024 05:19:30 PM > Please assist with scheduling mammogram, Sophia Caro 10/14/2024 07:48:28 AM > forwarding to Scottie Phan Bianca 10/14/2024 08:57:15 AM >[facility] Radiology scheduling : [phone] phone [facility] All Radiology orders to be faxed to [phone] Bianca 10/14/2024 11:33:52 AM > CSC called [facility] [phone], spoke with Bethanie, Appt: Dec.28 @ 9am, 2024 , Address: [facility], Estefany Rubin 10/14/2024 11:43:17 AM > CSC called pt, no answer, lvm, will send letter. Clinical Notes Edie Bee 10/13/2024 05:19:38 PM > 53 year old female with bipolar disorder, anxiety, chronic PTSD, somatization disorder, insomnia, personality disorder, sleep apnea, anemia, hypothyroidism, obesity, HLD, chronic pain syndrome, COPD, GERD, migraine, and chronic severe constipation s/p colectomy in need of routine screening mammogram Referral Priority Routine Reason ICO BEE BREEDER request for increase Diagnosis 1 Somatization disorde r (F45.0) Diagnosis 2 Unsteadiness on feet (R26.81) Referring Provider First Name Operations Referring Provider Last Name Clinical Referring Provider Speciality Unknown Referred Provider [facility]dependent Living LTSC Referred Provider Specialty Personal Car e Management Procedure 1 (Use Modifier TS) Pe rsonal Care Management Assessment (Annual Re-Evaluation for BEE BREEDER Program) One Care Only ([address]881) General Notes Alice Zepeda 12/16 08:57:59 AM >, Is member ICO or SCO? ICO, Hatchery Employee email address: [email or web address], Is this request for an Initial, Increase, Decrease, or AFC respite? Increase, If this is an urgent need for increase in hours please provide rationale: Mbr requests overnight hours - 12am - 6am for safety concerns, Who is requesting BEE BREEDER services or changes of BEE BREEDER services and their relationship to the member? Mbr , Diagnosis with ICD10 code that supports need for BEE BREEDER: F51.05, R26.81, R45.851, Which of the at least 2 ADL hands on needs does this member need assistance with: grooming, ambulating, bathing, Additional hands on needs: Mbr quite fearful for her safety overnight - sleepwalks - exits apt - wanders, What are the member's informal supports? Chuck, Will member likely need a surrogate to manage a BEE BREEDER? no, If yes, provide surrogate contact if available: , Primary contact for Member: [phone] , Members preferred language: [place], Does member have existing LTSS? Please list: , Will BEE BREEDER be replacing the LTSS? Please list: , Provide name and contact info for GSSC/LTSC: , Please ensure members GSSC/LTSC is aware of BEE BREEDER request, Please identify PCM agency and FI member will be using: [employer] Referral Priority Urgent Reason Echocardiogram (Faxe d 01/03) Diagnosis 1 Shortness of breath (R06.02) Diagnosis 2 Hypertensive heart a nd kidney disease without heart failure (I13.10) Referral Organization [facility] Primary Care [facility] Referring Provider First Name Rama Referring Provider Last Name Michael Referring Provider Speciality Nurse Prac titioner Family Referred Provider [facility] (Facility) Referred Provider Specialty Cardiology Procedure 1 TTE W/DOPPLER, COMPL ETE (53997) General Notes Rama Rodriguez 12/29/19 06:33:12 PM > Please schedule echocardiogram appt for patient and contact with appt info. Order in ecw., Sophia Caro 12/29/2024 08:58:30 AM > forwarding to America Ramos. No Prior auth needed, Sophia Caro 01/03/2025 08:22:24 AM > Address: [address] [place] [address], , . Referral Faxed, Izabel Goodrich 01/03/2025 03:19:26 PM > Called to follow up, and scheduled the member for 02/13/25 at 1:30 pm at [facility], [address] [place] [address]. - Main Entrance ground floor. Called member and advised her of the appt. She requesting a letter be mailed out to her. Letter created and mailed out. Closing Referral. Clinical Notes Rama Rodriguez 12/29/19 06:33:25 PM > 54 yo woman with longstanding hypertension, experiencing shortness of breath, echocardiogram ordered for assessment. 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 She may not be able to do same day appt due to transportation issues., Sophia Caro 01/02/2025 01:47:55 PM > forwarding to Joleen Tejeda Marylin 01/02/2025 02:32:14 PM > 01/05/25 at 2:30 pm at [address] [place] [id number] [address]. Called member and gave her the appt. details. Orders faxed. closing referral, phone: [phone], fax: [phone] Clinical Notes Juliette Rodriguezah 01/03/20 01:35:25 PM > Patient with left hand swelling, labs and x-ray not showing any clear cause, u/s ordered to evaluate for DVT. Referral Priority Urgent Reason Neurology referral Diagnosis 1 Intractable chronic migraine without aura and with status migrainosus (G43.711) Referral Organization [facility] Referring Provider First Name Rama Referring Provider Last Name Michael Referring Provider Speciality Nurse Jim bryant Family Referred Provider [facility] Referred Provider Specialty Neurology General Notes Rama Rodriguez 06/30/19 05:18:01 PM > Please refer patient to [facility] [address], [address], [place] [address] , , Sophia Caro 06/30/2024 11:50:47 AM >, [facility] . Referral faxedVania Jennifer 07/01/2024 01:33:06 PM > called and left msg to f/u on referral status, Sophia Caro 07/04/2024 11:38:40 AM > Received update from [facility] Neu[facility]. They are only accepting new patients for Parkinsons, tremors, TICS and dystonia. They are not accepting for any other diagnosis at this time due to they dont have adequate providers. Is there some other facility that she would refer to?, Rama Rodriguez 07/04/2024 11:47:52 AM > We could see if neurology at [facility] could see her for this, Sophia Caro 07/04/2024 01:14:07 PM > [facility], [address] - fax number [phone]. Referral faxedVania Jennifer 07/06/2024 09:35:57 AM > called to f/u & spoke to Cecilia. Referral received -& they will be contacting patient to schedule Closing referral Clinical Notes Rama Rodriguez 06/30/19 05:18:34 PM > 53 yo woman with chronic migraines, recently admitted to [facility] with intractable headache, requests neurology consult. Referral Priority Routine Reason 2nd opinion for [place] ia management Diagnosis 1 Ventral incisional h ernia (K43.2) Referral Organization [facility] Primary Care [facility] Referring Provider First Name Rama Referring Provider Last Name Michael Referring Provider Speciality Nurse Prac manny Family Referred Provider [facility] General Notes Kiara Velasquez 06/10/19 01:20:36 PM > Pt requested second opinion for mgmt of her hernia., Sophia Caro 06/09/2024 01:39:26 PM > referral faxVania knowles Jennifer 06/10/2024 12:05:32 PM > phone [phone]. Called to f/u. Office closed for lunch. Will call back after 1pm, Sophia Caro 06/10/2024 03:02:00 PM > Called to f/u and was advised that Toma just left their office and she saw Dr. Gavin. , Dr. Gavin is going to perform a Laproscopic incicisional hernia repair & patient will needs clearance Pre-op , She will need EKG , Labs, Blood pressure check. The office will fax over the completed notes from todays visit on Thursday. Closing Referral and putting this info into a TE for provider. Clinical Notes Kiara Velasquez 06/10/19 01:20:37 PM > Clinicals attached. Referral Priority Routine Reason Nutrition referral Diagnosis 1 Obesity, class 2 (E6 6.812) Diagnosis 2 Morbid (severe) obes ity due to excess calories (E66.01) Diagnosis 3 S/P colectomy (Z90.4 9) Diagnosis 4 Intestinal anastomos is present (Z98.0) Diagnosis 5 Celiac disease (K90. 0) Referral Organization [facility] Referring Provider First Name Edie Referring Provider Last Name Cristal Referring Provider Speciality Internal M edicine Referred Provider Sophia Boyd General Notes Edie Bee 06/07/2024 10:07:24 AM > Please assist with referral to Vania juan Jennifer 06/07/2024 10:10:12 AM > referral faxedVania Jennifer 06/07/2024 02:59:26 PM > . Left msg to see if request was received, Bianca Galaviz 06/07/2024 03:22:17 PM >Oven Dauberleia Cortes returned call from [employer] Sophia to advise referral was received and she will contact patient., Sophia Caro 06/07/2024 03:40:18 PM > noted. Thank you! Closing Referral Clinical Notes Edie Bee 06/07/2024 10:08:08 AM > 53 year old female with bipolar disorder, anxiety, chronic PTSD, somatization disorder, insomnia, personality disorder, sleep apnea, anemia, hypothyroidism, obesity, HLD, chronic pain syndrome, COPD, GERD, migraine, celiac disease, and chronic severe constipation s/p colectomy last year. Seeking consultation for assistance with weight loss in order to have incisional hernia repair and for overall health. Guidance on eating with celiac and s/p colectomy. Referral Priority Routine Reason please refer to [facility] [place] for PT (booked) Diagnosis 1 Fibromyalgia (M79.7) Diagnosis 2 Low back pain, unspe cified (M54.50) Referral Organization [facility] Referring Provider First Name Rama Referring Provider Last Name Michael Referring Provider Speciality Nurse Prac titioner Family Referred Provider [facility] Referred Provider Specialty Physical [facility] General Notes Gloria Landaverde 03/31 10:07:20 AM > Please refer to [facility] in [place] for PT, thank you!, Sophia Caro 04/22/2024 10:59:23 AM > Forwarding to Estefany Rubin , [address] [place] [address] [phone] , Estefany Rubin 04/22/2024 02:46:37 PM > faxed [phone] & [phone], Estefany Rubin 04/26/2024 11:48:57 AM > [facility] called and spoke with Elle and she provided a new fax # [phone], Estefany Rubin 04/26/2024 11:52:31 AM > Elle from [facility] stated that a [facility]ae[facility] PT appt for left sided weakness, was booked today @11:47am. Provider: Promise Thakkar, PT , Appt: Thursday @9:15am (arrive 15 mins early for paperwork), Location: [address] [place] [address], Floor [address] [place] [address], Estefany Rubin 04/26/2024 12:05:27 PM >[facility] attempted to call pt (x2), pt answered while on another call and could not communicate, Estefany Rubin 04/26/2024 01:34:19 PM > [facility] called to inform pt of appt, pt stated she is aware. Closing. Clinical Notes Gloria Landaverde 03/31 10:07:21 AM > 53 year old female with bipolar disorder, anxiety, chronic PTSD, somatization disorder, insomnia, personality disorder, sleep apnea, anemia, hypothyroidism, obesity, HLD, chronic pain syndrome, COPD, GERD, migraine, and chronic severe constipation. Referring to PT for shoulder pain and back pain, patient is requesting a breast reduction, utilizing PT for treatment measures and assessment Referral Priority Routine Medications Medication SIG (Take, Route, Frequency, Duration) Notes Start Date End Date Status Spironolactone 50 MG 1 tablet Orally Onc e a day 12/28/2024 Active Pregabalin 75 MG 1 capsule Orally Twi ce a day 09/08/2024 Active Lidocaine 4 % 1 patch remove after 12 hours Externally Once a day Active hydrALAZINE HCl 25 MG 1 tablet with food Orally Twice a day 11/07/2024 Active Ondansetron 4 MG 1 tablet on the tong ue and allow to dissolve Orally Once a day as needed for nausea 05/24/2024 Active Pantoprazole Sodium 20 MG 1 tablet 1/2 t o 1 hour before morning meal Orally Once a day; Duration: 90 days Active Melatonin 3 MG 1 tablet at bedtime as needed Orally Once a day Active Multivitamin Adult (Minerals) - as directed Orally Once a day; Duration: 30 days 12/09/2024 Active Magnesium Oxide -Mg Supplement 400 (240 Mg) MG 1 tablet with food Orally Once a day; Duration: 90 days Active Albuterol Sulfate 108 (90 Base) MCG/ACT 1 puff as needed Inhalation every 4 hrs Active Levothyroxine Sodium 150 MCG 1 tablet in the morning on an empty stomach Orally Once a day; Duration: 90 days Active Prazosin HCl 5 MG 1 capsule at bedtime Orally Once a day Active Cetirizine HCl 10 MG 1 tablet Orally Active hydrOXYzine HCl 50 MG 1 tablet as needed Orally Once a day Active Ferrous Sulfate 325 (65 Fe) MG 1 tablet Orally Every other day Active Fluticasone Propionate 50 MCG/ACT 1 spray in each nostril Nasally Twice a day Active EpiPen 2-Terry 0.3 MG/0.3ML Inject the con tents of one pen as needed for symptoms of anaphylaxis, call 911 Injection; Duration: 30 days 01/10/2025 Active Dicyclomine HCl 20 MG 1 tablet Orally Four times a day; Duration: 90 days As needed Active DULoxetine HCl 60 MG 1 capsule Orally daily 2024 Active clonazePAM 1 MG 1 tablet as needed Orally twice a day Active D-1000 Extra Strength 25 MCG (1000 UT) 1 tablet Orally Once a day; Duration: 90 days Active amLODIPine Besylate 10 MG 1 tablet Orall y Once a day Active Loperamide HCl 2 MG 1 tablet as needed Orally Four times a day Not-Taking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 final 06/29/2024 Pre-op examination (ICD-10 - Z01.818) Ok to proceed with planned hernia repair as it is an intermediate risk procedure and patient is at low risk for complications. She had a total colectomy last year without any significant complications. I advised her to stop Excedrin migraine. I recommended that she hold magnesium, multivitamin, and spironolactone on the day of the procedure. Other medications can be held at the discretion of the surgeon. 06/29/2024 Incarcerated incisional hernia (ICD-10 - K43.0) 06/29/2024 Hospital discharge follow-up (ICD-10 - Z09) She reports that she continues to have a severe headache although she appears comfortable on exam. Recommended stopping Excedrin migraine which may be causing rebound headaches. Recommended following up with sleep medicine as recommended by neurologist. She is requesting a second opinion from another neurology office, referral made. 07/15/2024 Hospital discharge follow-up (ICD-10 - Z09) Patient is reporting significant post-op pain since her hernia repair 8 days ago. I encouraged her to try calling Dr. Gavin's office again to report her symptoms and request refill of pain medication since her post-op appt is not until next week. She agrees to call. Advised if the pain is severe and she cannot reach the surgeon she should go to the ED to be evaluated for any complications leading to uncontrolled pain. I also called her visiting nurse Bertram who saw her this morning, she looked ok when she saw her. She said it is difficult to assess her pain since she will present with significant pain and then seem to forget she is in pain and appear comfortable until she remembers she has pain and will then yell out. When she was staying at her sister's, her brother/HCP Chuck would administer her the oxycodone every 6 hours but they have been talking with her about weaning off and just taking Tylenol. Bertram said she will call the surgeon also and follow-up with Toma. She called me back about 10 minutes later and said she had left a message with the surgeon's office and spoken with Toma who had also called and was told she would get a sherman back from her doctor when he is out of surgery. She will continue to follow-up with Toma. 07/15/2024 Other specified postprocedural states (ICD-10 - Z98.890) see above 07/29/2024 Somatization disorder (ICD-10 - F45.0) 08/10/2024 Generalized abdominal pain (ICD-10 - R10.84) - Associated diagnosis: Z98.890 Other specified postprocedural states (status post hernia repair) - Reason for presentation to hospital and admission- Imaging was reassuring although notable for a fairly significant stool burden- Toma firmly denies any issues with constipation, has been stooling after every meal following her colectomy and stools tend to be loose- Abdominal pain is significantly improved, incision healing well- Unfortunately, surgical office who completed her hernia repair has actually closed but there does not seem to be any ongoing surgical need or need for follow-up 06/02/2024 Esophagitis (ICD-10 - K20.90) 08/10/2024 Other specified postprocedural states (ICD-10 - Z98.890) 08/10/2024 Major depressive disorder, recurrent severe without psychotic features (ICD-10 - F33.2) 10/05/2024 Essential (primary) hypertension (ICD-10 - I10) - Uncontrolled hypertension likely secondary to regain of weight; was previously on more medication which was discontinued following weight loss after surgery/colectomy- Trial addition of hydralazine 25 mg twice daily to current regimen of spironolactone, amlodipine, and propranolol and prazosin which are being used for other indications- Continue careful blood pressure monitoring with [facility], has follow-up scheduled in the office next week for repeat blood pressure check/possible further medication titration 10/05/2024 Body mass index [BMI] 39.0-39.9, adult (ICD-10 - Z68.39) - Associated diagnoses: E66.812 Obesity, class II- Has had significant weight gain of weight with stabilization after colectomy- Toma is doing her best with exercising, walking her dog several times a day and consumes a healthy diet with restrictions secondary to allergies - She has been focusing on healthy changes as much as possible and continue to do so 10/14/2024 Morbid (severe) obesity due to excess calories (ICD-10 - E66.01) Discussed increasing dietary protein, reducing carbohydrates, strength training to build muscle in addition to her walks with her dog. 10/14/2024 Hypertensive heart and kidney disease without heart failure (ICD-10 - I13.10) BP improving, but still above the goal of < 130/80. However, she has only taken hydralazine for 4 days so far. We will continue her current regimen and outreach [facility] next week to see if BP readings improve more. She agrees with plan. Labs ordered for monitoring of renal function/electro lytes. 10/24/2024 Major depressive disorder, recurrent severe without psychotic features (ICD-10 - F33.2) 10/25/2024 Post-traumatic stress disorder, chronic (ICD-10 - F43.12) 10/28/2024 Encounter for follow-up examination after completed treatment for conditions other than malignant neoplasm (ICD-10 - Z09) Hospital discharge follow-up done today and medication reconciliation completed. See notes under each assessment below. 10/28/2024 Acute kidney failure, unspecified (ICD-10 - N17.9) We attempted to draw labs in the office today to recheck renal function, but the MA was unsuccessful with the blood draw. Advised a lab order was sent to [facility] in September, she will go next week to do labs. 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 This [facility] called [facility] director, Dio to report this and she will have staff meet with pt and take her to tour local [facility] along with their [facility] peer support drop in center. Pt has PCP f/u to tomorrow at 9am with CARMEN Rodriguez Pt has psychiatry f/u 12/08/24 at 930am-medications were adjusted in the hospital. Please see summary above for details. 11/07/2024 Major depressive disorder, recurrent severe without psychotic features (ICD-10 - F33.2) 12/06/2024 Drug induced subacute dyskinesia (ICD-10 - G24.01) See above, unclear why she was not able to get the tetrabenazine rx from the pharmacy (sent by the hospital), perhaps PA is needed, will outreach [facility] and she will follow-up with psychiatrist. 12/06/2024 Encounter for follow-up examination after completed treatment for conditions other than malignant neoplasm (ICD-10 - Z09) Medication reconciliation completed. Will outreach to her [facility] regarding the followin. Clarify whether she is still taking quetiapine, as this was on her med list prior to admission but is not noted at all in discharge summary. 2. She can resume previous home meds: Wixela, Flonase, loperamide PRN, ondansetron PRN, magnesium. 3. Clarify if patient was able to get tetrabenazine rx from pharmacy/have they outreached her psych provider that she did not get this medication after discharge. 12/21/2024 Moderate major depression (ICD-10 - F32.1) - Working with psychiatry and will be establishing with a new therapist- Advised importance of working on depression, but avoiding significant adverse effects including recent mental status changes and psychosis resulting in prolonged hospitalization and inpatient psychiatric care which seem to have resulted from medication trial- At this time, she does not have any active suicidal ideations although is having ongoing challenges with her family/sister 12/21/2024 Other specified soft tissue disorders (ICD-10 - M79.89) - Atraumatic and painless swelling left hand of unclear etiology- No evidence of skin/soft tissue infection (cellulitis), arthritis, or circulatory compromise- Advised icing and elevation- Discussed reasons for urgent follow-up evaluation with patient and her [facility] nurse who will assist with monitoring- She has an office visit early next week 12/22/2024 Major depressive disorder, recurrent severe without psychotic features (ICD-10 - F33.2) 12/27/2024 Other specified soft tissue disorders (ICD-10 - M79.89) She continues to have acute left hand swelling which has not improved with conservative measures (ice and elevation). She has tenderness on palpation of the joints in her hand. Will do labs and imaging for more assessment. 12/27/2024 Hypertensive heart and kidney disease without heart failure (ICD-10 - I13.10) BP above goal in office today despite recently increasing amlodipine to 10mg daily. We will outreach [facility] to review home BP readings and confirm the date they increased her amlodipine. She is still on spironolactone and hydralazine and may need dose increase. We will also check renal function/electro lytes prior to any increase in spironolactone. 12/27/2024 Hypertensive heart and kidney disease without heart failure (ICD-10 - I13.10) 01/02/2025 Other specified soft tissue disorders (ICD-10 - M79.89) 01/10/2025 Hypertrophy of breast (ICD-10 - N62) We discussed that Dr. Bee referred her to [facility] for breast reduction on 04/28/24. However, [facility] declined the referral stating that her BMI needs to be less than 33 for insurance to cover her surgery. Additionally, she would need to have tried PT aimed at her chronic back pain. She is about to start PT at [facility] for back pain. Her BMI today is 37.2. She is still working with a senior sales executive to lose weight. Once she has trialed PT and her BMI is less than 33 we can re-refer her for surgical consult. 01/10/2025 Hypertensive heart and kidney disease without heart failure (ICD-10 - I13.10) Her BP is essentially the same as it was 2 weeks ago, despite increasing the spironolactone dose. However it is better than it was when [facility] saw her this weekend. She complains of significant pain/headaches which she thinks is raising her BP. She is also taking Excedrin migraine (that has caffeine) every 6-8 hours which may also cause BP elevation. I have asked her to stop the Excedrin migraine since it may be causing rebound headaches. We will recheck her BP in 2-3 weeks, it is also monitored by [facility]. 12/27/2024 Pain in left hand (ICD-10 - M79.642) See above. 01/10/2025 Chronic pain syndrome (ICD-10 - G89.4) Will request recent consult notes from [facility]. She is about to start PT. Will discuss her request to restart buprenorphine with Dr. Bee. 12/22/2024 Generalized anxiety disorder (ICD-10 - F41.1) 12/21/2024 Hypertensive heart and kidney disease without heart failure (ICD-10 - I13.10) - In office and home blood pressures remain above goal- Increase amlodipine back to 10 mg daily and continue close monitoring 12/06/2024 Major depressive disorder, recurrent, severe with psychotic symptoms (ICD-10 - F33.3) Reports increased depression since dischage, has appt with her psychiatrist in 2 days (12/08) and therapist on Saturday 12/09. She is looking into day programs. Is happy to be home with her dog. She is having a lot of trouble sleeping and will discuss sleep meds with psychiatrist at upcoming appt as well. 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 Noted that her hiwufaz-cd-yft Chuck would like to be informed regarding any medication changes. 10/24/2024 Post-traumatic stress disorder, chronic (ICD-10 - F43.12) 10/05/2024 Obesity, class 2 (ICD-10 - E66.812) 10/14/2024 Major depressive disorder, recurrent severe without psychotic features (ICD-10 - F33.2) Med list upated with recent changes from her psychiatrist. We discussed how focusing on caring for her dog helps with her depression, gets her out of the house, allows her to socialize with other dog owners she meets on walks. 08/10/2024 Positive blood culture (ICD-10 - R78.81) - Associated diagnosis: B95.7 Other staphylococcus as the cause of diseases classified elsewhere- Single blood culture positive for Staph epidermidis in the setting of fever while inpatient- This seems most consistent with contaminant given lack of ongoing fever, chills, night sweats, malaise/symptoms- She is completing a course of linezolid- Notification to [facility] and [facility]EDER due to concerns about contagiousness of illness; reassured Toma that this is a normal skin cedric that is only an issue due to its potential presence in her bloodstream 06/29/2024 Hypertensive heart and kidney disease without heart failure (ICD-10 - I13.10) BP above goal today, was variable during recent hospital admission. Recommended stopping Excedrin migraine today for multiple reasons- likely causing rebound headaches, contains asprin which she should not be taking prior to procedure, and it may be raising her blood pressure. Continue amlodipine and spironolactone. 06/29/2024 Intractable chronic migraine without aura and with status migrainosus (ICD-10 - G43.711) See above. 07/15/2024 Personal history of other diseases of the digestive system (ICD-10 - Z87.19) 06/02/2024 Incisional hernia, without obstruction or gangrene (ICD-10 - K43.2) - Resulted in partial small bowel obstruction- Note from surgeon (Dr. Marx) reviewed in [facility], does encourage weight loss prior to hernia repair due to risk of recurrence but does not denote specific BMI 04/28/2024 Complaint of debility and malaise (ICD-10 - R53.81) - subacute, recurrent symptoms with headaches and GI upset - she agrees this may be related to recently increased stressors - discussed reasons for additional evaluation 04/28/2024 Memory changes (ICD-10 - R41.3) - also recurrent - Toma had seen a lot of improvement and reported feeling clear-headed after discontinuation of many medications following her colectomy - has pending evaluation with neurology - encouraged discussing current medication regimen with psych provider as she had been doing much better before medications were added back 06/02/2024 Morbid (severe) obesity due to excess calories (ICD-10 - E66.01) - Associated diagnoses: Z68.39 Body mass index (BMI) 39.0-39.9, adult; E66.812, obesity, class II- Discussed options to work on weight reduction- Unfortunately, she had significant regain following loss after colectomy- She is doing her best with diet and exercise- There are current contraindications to trial of a GLP-1- Discussed and agree to nutrition referral 08/10/2024 Other staphylococcus as the cause of diseases classified elsewhere (ICD-10 - B95.7) 10/05/2024 Major depressive disorder, recurrent severe without psychotic features (ICD-10 - F33.2) - Associated diagnosis: F45.0 Somatization- Following closely with behavioral health - Advised discussing current medication regimen with her new psychiatrist as she is recently having new adverse effects that she describes as dissociation and had been doing better after being tapered down on medications significantly during inpatient hospitalization last year at time of colectomy- She has also experienced pretty significant side effects of duloxetine which has once again been gradually increased to a pretty high dose 10/14/2024 Hypothyroidism, unspecified (ICD-10 - E03.9) TSH 0.65 in March, rechecking for monitoring and due to recent weight gain. 10/28/2024 Hypertensive heart and kidney disease without heart failure (ICD-10 - I13.10) BP just above goal today despite holding spironolactone due to FLAQUITA. Checking labs to see if we can restart spironolactone. No increased in edema despite holding spironolactone. Continue amlodipine and hydralazine. BP monitored at home by [facility]. 12/06/2024 Hypertensive heart and kidney disease without heart failure (ICD-10 - I13.10) BP still high, we just added back amlodipine, will review her home BP readings and adjust medication as needed, she is still taking spironolactone and hydralazine. 01/10/2025 Obstructive sleep apnea (ICD-10 - G47.33) Her neurologist has expedited rescheduling a sleep medicine appt she missed while in the hospital- now scheduled for 01/13/25. 12/27/2024 Shortness of breath (ICD-10 - R06.02) She reports recent [facility] at [facility] [place] where she was noted to be breathing with her vocal folds that may explain her shortness of breath. We will request the notes. We discussed repeating echocardiogram as it has been more than 5 years since her last one. I saw a note in her chart mild diastolic dysfunction but unclear where this finding came from since it wasn't noted in the echocardiogram report from 2019. 12/22/2024 Somatization disorder (ICD-10 - F45.0) 12/22/2024 Skin-picking disorder (ICD-10 - F42.4) 12/06/2024 Moderate persistent asthma, uncomplicated (ICD-10 - J45.40) Advised she can restart Wixela is on her discharge med list, updated correct dose in our records (100-50 mcg, prescribed by her weighter Dr. Talley). She has follow-up with Dr. Talley on 12/13/24. 10/28/2024 Other symptoms and signs involving appearance and behavior (ICD-10 - R46.89) We discussed concerns about her behavior changes and cognitive changes in detail today. Her xtthalv-os-vvx thinks the sleepwalking episodes may be related to an Ambien dose change, but we discussed that it appears this medication change (switch from Zolpidem 5mg to Zolpidem extended release 6.25mg) was made by her previous psychiatrist in may, and her behaviors have changed in the past 6-8 weeks. We discussed that we noted similar behaviors in September 2023 after she was started on a high dose of duloxetine (120mg) by her former neurologist, and that her new psychiatrist recently increased her duloxetine dose (was 30mg daily, now 90mg daily). Abilify 5mg was also recently added. We already communicated our concerns regarding her medications to her team earlier this week. I encouraged Chuck to attend her appt with her new psychiatrist (who she has seen twice so far) as scheduled on 11/01/24. I also gave him the phone number for her ACCS team though [facility]. When I stepped out of the room to print the letter for her apartment complex regarding having an extra lacy in a lock box, Chuck and Toma had spoken about a partial hospitalization program, and he told me she agreed, but she quickly told me she didn't want to do it. Advised if she does want to do a partial program, this would be arranged by her psychiatrist. If the cognitive changes don't improve after medication changes are made, may need to consider additional work-up, especially as she reports her mother had dementia. 10/14/2024 Vitamin D deficiency, unspecified (ICD-10 - E55.9) Not filling supplement per [facility], will check with [facility], and check level for monitoring. 10/05/2024 Somatization disorder (ICD-10 - F45.0) 04/28/2024 Macromastia (ICD-10 - N62) - discussed that insurance approval process may require shoulder girdle PT, weight reduction, etc. - would like to meet with a surgeon to discuss further 06/02/2024 Body mass index [BMI] 39.0-39.9, adult (ICD-10 - Z68.39) 08/10/2024 Hospital discharge follow-up (ICD-10 - Z09) - Discharge summary reviewed summarized in HPI- Medication reconciliation completed- TRN out reach reviewed 01/10/2025 Chronic migraine without aura with status migrainosus, not intractable (ICD-10 - G43.701) During her visit I was able to find the sleep medicine consult note from [facility] on 01/09/25- scanned into chart. Her neurologist details an extensive list of treatments and medications she has tried in the past. Ultimately they would like her to see sleep medicine for untreated TRISTAN and as noted above they have been able to get her scheduled this week. I recommended that she stop the Excedrin migraine which is likely causing rebound headaches. She can call for a repeat [facility] visit for migraine treatment (hopefully they will be able to get IV access next time) if her pain worsens. 01/10/2025 Morbid (severe) obesity due to excess calories (ICD-10 - E66.01) She is frustrated by her hunger and weight gain. She is working with a senior sales executive. We discussed trying to only have healthy snack options at home and trying to reduce binge eating. We discussed that medications such as Wegovy and Zepbound have significant possible GI side effects and I would not recommend them given her GI history. She does not want bariatric surgery. Her recent TSH was normal. She reports being able to lose weight in the past with diet and exercise and will continue these methods. 06/02/2024 Obesity, class 2 (ICD-10 - E66.812) 10/05/2024 Encounter for screening mammogram for malignant neoplasm of breast (ICD-10 - Z12.31) - Routine screening mammogram ordered 08/10/2024 Contact dermatitis, unspecified contact dermatitis type, unspecified trigger (ICD-10 - L25.9) - Associated diagnoses: F42.4 Skin picking disorder- Discussed avoiding picking and scratching as possible, risk for infection- Start topical steroid cream (triamcinolone) once daily to 3 areas of current rash- Discussed reasons for follow-up evaluation 12/06/2024 Iron deficiency anemia (ICD-10 - D50.9) Started on iron supplement during admission, also noted to have low side of normal B12 levels (started on B12 supplement also), will plan to repeat labs in a month or two for monitoring. 12/22/2024 Post-traumatic stress disorder, chronic (ICD-10 - F43.12) 12/06/2024 Allergic rhinitis, unspecified seasonality, unspecified trigger (ICD-10 - J30.9) Ok to restart Flonase, continue cetirizine. 12/22/2024 Moderate persistent asthma, uncomplicated (ICD-10 - J45.40) 08/10/2024 Skin-picking disorder (ICD-10 - F42.4) 06/02/2024 Intractable chronic migraine without aura and with status migrainosus (ICD-10 - G43.711) - Working with neurology and has scheduled acute follow-up for tomorrow due to failure of most recent medication trial - Interestingly reports being debilitated by migraines and unable to function, but then also tells me that she is walking her dog 5 times a day in an attempt to lose weight 01/10/2025 Allergy to other foods (ICD-10 - Z91.018) strawberries and tree nuts Epi-pen rx sent. 08/10/2024 Moderate major depression (ICD-10 - F32.1) - Chronic symptoms with exacerbation secondary to family turmoil- Following closely with therapist and psychiatrist- Does not endorse any suicidal ideation, finds her support team very helpful as well as her dog, is very well aware of resources 06/02/2024 Recurrent falls (ICD-10 - R29.6) - Associated diagnosis: F51.04 Psychohysiological insomnia - Strongly encouarged discussion with psychiatry as it does seem like most falls are overnight/after taking Ambien which is minimally effective anyhow - Fall on ice was more typical and likely unrelated to any underlying pathology 12/06/2024 Migraine, unspecified, not intractable, without status migrainosus (ICD-10 - G43.909) Ok to restart magnesium for headache prevention, she is trying to get sooner appt with her neurologist. 12/22/2024 Hypertensive heart and kidney disease without heart failure (ICD-10 - I13.10) 12/22/2024 Major depressive disorder, recurrent, severe with psychotic symptoms (ICD-10 - F33.3) 06/02/2024 Psychophysiological insomnia (ICD-10 - F51.04) 12/22/2024 Vitamin D deficiency, unspecified (ICD-10 - E55.9) 12/22/2024 Essential (primary) hypertension (ICD-10 - I10) 12/22/2024 Psychophysiological insomnia (ICD-10 - F51.04) 12/22/2024 Intractable chronic migraine without aura and with status migrainosus (ICD-10 - G43.711) 12/22/2024 Morbid (severe) obesity due to excess calories (ICD-10 - E66.01) 12/22/2024 Borderline personality disorder (ICD-10 - F60.3) 12/22/2024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
--- OUTSIDE RECORDS SUMMARY | 2025-01-22 20:16 | XMS_ITS | Clinical Summary ---
Author Organization [address] [place] [address] Address [address] [place] [address] Phone Care Team Providers Care Lab Specialist Name Role Phone Rama Rodriguez GRETTA Primary Care Provider [phone] Social History Tobacco Use Types Packs/Day Years Used Date Smoking Tobacco: Never Assessed Comments Unknown Sex and Gender Information Value Date Recorded Sex Assigned at Not on file Legal Sex Female 6:50 PM EST Gender Identity Not on file Sexual Orientation Not on file Plan of Treatment Health Maintenance Due Date Last Done Comments Breast Cancer Screening 1970 Colorectal Cancer Screening: Colonoscopy 1970 DTaP,Tdap,and Td Vaccines (1 - Tdap) 11/26/1990 Hepatitis B Vaccines (1 of 3 - 19+ 3-dose series) 11/26/1990 Cervical Cancer Screening: P ap Smear 11/26/1992 Pneumococcal Vaccine: 50+ Ye ars (1 of 1 - PCV) 11/26/2021 Zoster Vaccines (1 of 2) 11/26/2021 HIV Screening 03/01/2022 Hepatitis C Screening 03/01/2022 Social Influencers of Health Screening 03/01/2022 Depression Screening 03/30/2024 COVID-19 Vaccine (1 - 2023-2 5 season) 2024 Influenza Vaccine (#1) 2024 RSV Immunization Adult Patie nts (1 - 1-dose 75+ series) 11/26/2046 HIB Vaccines Aged Out No longer eligi ble based on patient's age to complete this topic HPV Vaccines Aged Out No longer eligi ble based on patient's age to complete this topic Hepatitis A Vaccines Aged Out No long er eligible based on patient's age to complete this topic IPV Vaccines Aged Out No longer eligi ble based on patient's age to complete this topic MMR Vaccines Aged Out No longer eligi ble based on patient's age to complete this topic Meningococcal ACWY Vaccine Aged Out N o longer eligible based on patient's age to complete this topic Meningococcal B Vaccine Aged Out No l onger eligible based on patient's age to complete this topic RSV Immunization Patients Un rosalinda 20 months Aged Out No longer eligible b ased on patient's age to complete this topic Varicella Vaccines Aged Out No longer eligible based on patient's age to complete this topic Insurance [facility] Member Subscriber Plan / Payer (Ef fective 2018-Present) Name:TOMA POLLARD Relation to Subscriber:Spouse Name:TOMA POLLARD Date of :1971 (Home) Address: [address] [place] [address] Payer ID:[id number] Group ID:[id number] Type:Not on file Address: [address] [place] [address] Care Teams Lab Specialist Relationship Specialty Start Date End Date Rama Rodriguez FNP PCP - General Nurse Practitioner 07/04/24
--- OUTSIDE RECORDS SUMMARY | 2025-01-22 20:16 | XMS_ITS | Encounter Summary ---
Author Organization Counts Include [facility] Address [address] [place] [address] Encounters * CPT with [facility] at [employer] on 2025-01-21 hi, I have had a migraine for 1 month now and it is now unbearable. I had a visit last week and I was given Toradol which made no difference. If they don???t carry anything stronger than Toradol, I don???t need a visit. Please let me know. { reasonForRequest : Patient has had a Headache for over 1 month. , verna Figueroa : , denies :[ Worst Headache of life , New onset of vision loss , Sudden onset -unilateral weakness/gait disturbance , Fall with head strike and altered LOC , New onset of Slurred speech or difficulty finding words , Sudden Mental status changes , Head pain with fever chills and neck pain ,"Seizure activity ], chiefComplaints : Headache , pmh : Severe Persistent Mental Illness (SPMI), Asthma, Hypothyroidism, Migraine, Anxiety Disorder, Depression , allergies : Penicillins, Sulfa (Sulfonamide Antibiotics), Keflex, Toprol Xl, Droperidol , otherAllergies :null, painAssessment : , visi tOutcome : , additionalComments : 54 y.o female complains of Headache\nPatient reports she has been experiencing a migraine headache for over a month. Patient states \"everything makes it worse\ . Patient states a warm shower or ice on her head or neck temporarily improves the pain. Patient reports intermittent blurred vision. Patient reports history of migraine headaches since childhood. Patient states she did go to the hospital last week but states themedications she was given did not help. Patient states she has been in contact with her neurologistwho did call in Prednisone for her. Patient denies fever, chills, or seizure like activity. Patientable to speak in full, complete, coherent sentences at time of call. I provided information on the mobile health provider response time and advised the patient and/or caregiver to monitor reported signs and symptoms. I discussed the warning signs of when to seek emergency care -Ilya Lovell RN } Encountered patient supine and conscious with JUNIOR LINUX ADMINISTRATOR present. Patient states she has been experiencinga migraine for over a month and has been in contact with her neurologist who has prescribed a course of prednisone for her pain, which is not helping. Patient states she suffers from migraines historically and the one she is experiencing is reminiscent of her previous. Patient denies changes in vision, fevers, chest pain or shortness of breath. IV access was looked for but ultimately not attempted due to poor vasculature ???they always have to get the ultrasound at the hospital, so it???s ok ifyou don???t find anything.?? Skin warm, dry and of appropriate color for ethnicity. Head and neck free of trauma and edema. ??? JVD. Breath sounds present, clear and equal bilaterally. Abdomen is soft, non-tender and non-distended. Extremities are free of trauma and edema. [facility] contacted: 15mg IM Toradol, 25mg IM Benadryl and 8mg IM Zofran administered after medication rights were reconciled with patient. Patient was advised to follow up with her neurologist as soon as possible and was also encouraged to monitor herself for chest pain, shortness of breath, nausea, vomiting, dizziness or acute changes in vision. Patient was encouraged to seek further medical attention, including 911, if said symptoms were to develop. Patient verbalizes understanding of the plan andstates she is comfortable remaining home today. IV_(FLUIDS_AND/OR_MEDICATION), MEDICATION_IM, EKG, POC_FLU_STREP, COVID_TEST Written by [facility] on 2025-01-21
--- OUTSIDE RECORDS SUMMARY | 2025-01-22 20:16 | XMS_ITS | Encounter Summary ---
Author Organization [facility] Address [address] [place] [address] Care Team Providers Care Lap Winding Machine Operator Name Role Phone Nasima Narayan Primary Care Provider [phone] Encounter Details Date Type Department Care Team (Late st Contact Info) Description 06/25/2020 myChart Message [facility] [address] [place] [address] Art Newby MD [address] [place] [address] [place] [address] Non-Urgent Medical Question Social History Tobacco Use Types Packs/Day Years [...] on filedocumented in this encounter Care Teams Lap Winding Machine Operator Relationship Specialty Start Date End Date Nasima Narayan [address] [place] [id number] PCP - General Internal Medicine 07/04/21 documented as of this encounter
--- OUTSIDE RECORDS SUMMARY | 2025-01-22 20:16 | XMS_ITS | Clinical Summary ---
Author Organization [facility] Address [address] [place] [address] Care Team Providers Care Spouting Installer Name Role Phone Nasima Narayan Primary Care Provider [phone] Allergies Active Allergy Reactions Criticality Noted Date Comments Cephalexin Swelling High 05/24/2018 Droperidol Anaphylaxis High 11/14/2009 Penicillin Rash Low 11/14/2009 Sulfa (Sulfonamide Antibiotics) Rash Low 11/14/2009 Ketorolac Rash Medium 01/16/2020 Tramadol Rash Medium 07/05/2021 Took benadryl which helped rash Medications * This document contains information received from the source organization and may not represent a complete record from that organization. traZODone (DESYREL) 150 mg tablet Take 150 mg by mouth nightly. 0 Active acetaminophen (TYLENOL) 325 mg tablet Take 650 mg by mouth every 4 hours. 0 Active albuterol (PROAIR HFA,VENTOLIN HFA) 90 mcg inhaler Inhale 2 puffs by mouth every 4 hours as needed for wheezing. 0 Active bisacodyL (DULCOLAX) 5 mg EC tablet Take 10 mg by mouth daily as needed for constipation. 0 Active butalbital-acet aminophen-caff (ESGIC) 50-325-40 mg per capsule Take 1 capsule by mouth every 4 hours. 0 Active calamine-zinc oxide lotion USE NEEDED UP TO 4 TIMES A DAY 0 Active Spencer-Gest Antacid 200 mg calcium (500 mg) chewable tablet Chew and swallow 1 tablet by mouth 3 times a day. 0 Active cetirizine (ZyrTEC) 10 mg tablet Take 10 mg by mouth daily. 0 Active cholecalciferol 25 mcg (1,000 unit) tablet Take 1,000 Units by mouth daily. 0 Active dicyclomine (BENTYL) 10 mg capsule Take 10 mg by mouth 4 times a day. [address] (CYMBALTA) 60 mg capsule Take 120 mg by mouth daily. 0 Active Dupixent Syringe 300 mg/2 mL syringe Inject 300 mg under the skin every 14 days. 0 Active EPINEPHrine (EPIPEN) 0.3 mg/0.3 mL injection syringe Inject 0.3 mg into the outer thigh muscle as directed as needed for anaphylaxis. 0 Active fluticasone propionate (FLONASE) 50 mcg/actuation nasal spray Administer 1 spray into each nostril 2 times a day. 0 Active Breo Ellipta 200-25 mcg/dose blister with device Inhale 1 puff by mouth daily. 0 Active Emgality Pen 120 mg/mL pen injector INJECT 1 DOSE EVERY 30 DAYS. 0 Active ipratropium-alb uteroL (DUO-NEB) 0.5-2.5 mg/3 mL nebulizer solution Inhale 3 mL via nebulizer daily as needed for wheezing or shortness of breath. 0 Active lamoTRIgine (LaMICtal) 25 mg tablet Take 50 mg by mouth daily. 0 Active levothyroxine (SYNTHROID, LEVOTHROID) 137 mcg tablet Take 1 tablet by mouth daily. 0 Active Latuda 40 mg tablet TAKE 1/2 TABLET BY MOUTH IN THE MORNING AND 1 TAB AT BEDTIME 0 Active magnesium oxide (MAG-OX) 400 mg (241.3 mg magnesium) tablet Take 400 mg by mouth daily. 0 Active mesalamine (APRISO) 0.375 gram 24 hr capsule Take 1,500 mg by mouth daily. 0 Active montelukast (SINGULAIR) 10 mg tablet Take 10 mg by mouth nightly. at bedtime 0 Active Tab-A-Madi/Iron tablet Take 1 tablet by mouth daily. 0 Active Trulance 3 mg tablet Take 3 mg by mouth daily. 0 Active prazosin (MINIPRESS) 5 mg capsule Take 5 mg by mouth nightly. 0 Active pregabalin (LYRICA) 75 mg capsule Take 75 mg by mouth 2 times a day. 0 Active QUEtiapine (SEROquel) 200 mg tablet Take 200 mg by mouth nightly. 0 Active SUMAtriptan (IMITRIX) 6 mg/0.5 mL injection Inject 0.6 mg under the skin. Use up to 4 injections per month as needed. 0 Active Spiriva Respimat 1.25 mcg/actuation mist Inhale 2 puffs by mouth daily. 0 Active clonazePAM (KlonoPIN) 1 mg tablet Take 1 mg by mouth 4 times a day as needed. Active QUEtiapine (SEROquel) 50 mg tablet Take 50 mg by mouth 2 times a day. In the morning and between 3:00 - 4:00 pm Active sennosides-docu sate sodium (Senna Plus) 8.6-50 mg capsule Take 2 capsules by mouth as needed (constipation). Active buPROPion XL (WELLBUTRIN XL) 150 mg tablet Take 150 mg by mouth every morning. Active traZODone (DESYREL) 150 mg tablet Take 150 mg by mouth nightly as needed for sleep. Active furosemide (LASIX) 20 mg tablet Take 1 tablet (20 mg total) by mouth daily. 30 tablet 5 0 Active ondansetron (ZOFRAN) 4 mg tablet Take 1 tablet (4 mg total) by mouth every 8 hours as needed for nausea or vomiting. 15 tablet 0 Active propranoloL (INDERAL) 20 mg tablet TAKE 1 TABLET BY MOUTH TWICE A DAY 180 tablet 1 1 Active acetaZOLAMIDE (DIAMOX) 250 mg tablet Take 500 mg by mouth 3 times a day. Active traZODone (DESYREL) 100 mg tablet Take 300 mg by mouth at bed time. Active ubrogepant (Ubrelvy) 100 mg tablet Take 1 tablet by mouth daily as needed. TAKE ALONG WITH 2 IBUPROFEN AT ONSET OF MIGRAINE, May repeat once after 2hours if headache returns Active atogepant (Qulipta) 60 mg tablet Take 60 mg by mouth once a day. For 30 days, unknown start date Active multivitamin (THERAGRAN) tablet Take 1 tablet by mouth once a day. Active magnesium oxide 400 mg magnesium capsule Take 1 capsule by mouth once a day. Active dupilumab (Dupixent Syringe) 200 mg/1.14 mL syringe Inject under the skin once. Active mesalamine (APRISO) 0.375 gram 24 hr capsule Take 1,500 mg by mouth once a day. Active levothyroxine (SYNTHROID, LEVOTHROID) 100 mcg tablet Take 100 mcg by mouth daily. Active pregabalin (LYRICA) 75 mg capsule Take 75 mg by mouth 2 times a day. Active DULoxetine DR (CYMBALTA) 60 mg capsule Take 120 mg by mouth once a day. Active clonazePAM (KlonoPIN) 1 mg tablet Take 1 mg by mouth 3 times a day. Active ondansetron (ZOFRAN) 8 mg tablet Take 8 mg by mouth daily as needed for nausea or vomiting. Active fluticasone-ume clidinium-vilan terol (Trelegy Ellipta) 200-62.5-25 mcg blister with device Inhale 1 puff by mouth once a day. Active FLUTICASONE FUROATE NASAL Administer 50 mcg into affected nostril(s) once a day. 1 spray in each nostril Active ipratropium (ATROVENT) 0.03% nasal spray Administer 2 sprays into each nostril 2 times a day. Active Active Problems Problem Noted Date Diagnosed Date Morbid obesity 06/15/2020 Pseudotumor cerebri 01/20/2020 Headache 01/16/2020 Social History Tobacco Use Types Packs/Day Years [...] Orientation Straight 06/15/2020 9: 56 AM EDT Last Filed Vital Signs Vital Sign Reading Time Taken Comments Blood Pressure 103/71 07/05/2021 9:00 AM EDT Pulse 67 07/05/2021 9:00 AM EDT Temperature 37.1 C (98.7 F) 07/05/2021 9:00 AM EDT Respiratory Rate 18 07/05/2021 9:00 AM EDT Oxygen Saturation 97% 07/05/2021 9:00 AM EDT Inhaled Oxygen Concentration - - Weight 92.1 kg (203 lb) 07/04/2021 4:55 PM EDT Height 142.2 cm (4' 8 ) 01/15/2020 7:26 PM EDT Body Mass Index 45.51 01/15/2020 7:26 PM EDT Plan of Treatment Health Maintenance Due Date Last Done Comments Cervical Cancer Screening 1970 Cologuard 1971 Colon Cancer Screening 1970 Colonoscopy 1971 FOBT / Fit Test 1971 HIV Screening 1970 HPV and Pap Smear 1971 Pap Smear 1971 Sigmoidoscopy 1971 Hepatitis B Vaccines (1 of 3 - 19+ 3-dose series) 11/26/1990 Pneumococcal Vaccine: 50+ Ye ars (1 of 2 - PCV) 11/26/1990 DTaP,Tdap,and Td Vaccines (1 - Tdap) 11/26/1993 Mammogram 2011 Zoster Vaccines (1 of 2) 11/26/2021 Alcohol/Substance Use Screening 03/30/2024 Depression Screening and Follow-Up 03/30/2024 Social Drivers of Health Annual Screening 03/30/2024 COVID-19 Vaccine ( - season) 2024 Influenza Vaccine (#1) 2024 01/05/2015, 2013 RSV Vaccine (60+ years old a nd patients) (1 - 1-dose 75+ series) 11/26/2046 Hepatitis C Screening Completed 01/18/2020 Procedures * Due to [place] state law, this organization might not be sharing negative HIV tests. Procedure Name Priority Date/Time Associated Diagnosis Comments HEPATITIS C ANTIBODY W/REFLEX TO HCV RNA, QUANTITATIVE PCR Routine 01/18/2020 2:56 AM EDT from Last 3 Months or Most Recently Relevant to Health Maintenance Results * Due to [place] [employer] law, this organization might not be sharing negative HIV tests. * Hepatitis C Antibody w/Reflex to HCV RNA, Quantitative PCR (01/18/2020 2:56 AM EDT) Hepatitis C Antibody NON-REACT GREGORY NON-REACT GREGORY 01/18/2020 1:18 PM EDT [facility] Signal To Cut-Off 0.01 <1.00 01/18/2020 1:18 PM EDT [facility] Comment: HCV antibody was non-reactive. There is no laboratory evidence of HCV infection. In most cases, no further action is required. However, if recent HCV exposure is suspected, a test for HCV RNA (test code 50470) is suggested. For additional information please refer to http://education.Qbox.io/faq/SAN87e0 (This link is being provided for informational/ educational purposes only.) Blood Structure of peripheral vein / Unknown Venipuncture / Unknown 01/18/2020 2:56 AM EDT 01/18/2020 3:26 AM EDT Narrative [facility] - 01/18/2020 1:18 PM EDT [facility] Received Date: Tee Conn MD LAB BLOOD ORDERABLES Final Resu lt [facility] [address], [place] [address], [place] [phone] Traveler | [facility] [address], [place] [address], [place] [phone] from Last 3 Months or Most Recently Relevant to Health Maintenance [place] [address] [place] [id number] [facility] Advance Directives Documents on File Type Date Recorded Patient Manager Golf Expl anation Health Care Proxy 01/17/2020 3:36 PM 09/2019 * Presumed Full Code (Latest Code Status on File) Date Activated Date Inactivated Comments 07/05/2021 12:20 AM 07/05/2021 2:07 PM * Presumed Full Code Date Activated Date Inactivated Comments 01/16/2020 3:38 PM 01/20/2020 7:27 PM Healthcare Agents on File Name Relationship Healthcare Agent Relationshi p Communication Chuck Higgins Health Care Agent Care Teams Spouting Installer Relationship Specialty Start Date End Date Nasima Narayan [address] [place] [address] PCP - General Internal Medicine 07/04/21"
--- OUTSIDE RECORDS SUMMARY | 2025-01-22 20:16 | XMS_ITS | Continuity of Care Document ---
Author Name [facility] Address [address] [place] [id number] Organization Unknown Address [address] [place] [id number] Medications No known medications Problems No known problems
--- OUTSIDE RECORDS SUMMARY | 2025-01-22 20:16 | XMS_ITS | Clinical Summary ---
Author Organization [facility], Address [address] [place] [address] Phone Care Team Providers Care Security Systems Sales Representative Name Role Phone Milla Fuchs NP Primary Care Provider Allergies Active Allergy Reactions Criticality Noted Date Comments Cephalexin Swelling High 05/24/2018 Droperidol Anaphylaxis High 11/14/2009 Oxycodone-Acetaminophen 11/14/2009 Pt denies Penicillin G Rash Low 11/14/2009 Sulfa Antibiotics Rash Low 11/14/2009 Medications acetaminophen (TYLENOL) 500 MG chewable tablet Chew 500 mg every 6 (six) hours if needed for mild pain Active Fluticasone Furoate-Vilante rol (Breo Ellipta) 200-25 MCG/INH aerosol powder Inhale Active buPROPion SR (WELLBUTRIN SR) 150 MG 12 hr tablet Take 150 mg by mouth 2 (two) times a day Do not crush, chew, or split. Active Fluticasone Furoate-Vilante rol (Breo Ellipta) 200-25 MCG/INH aerosol powder Inhale Active Cholecalciferol (Vitamin D3) 25 MCG (1000 UT) capsule Take by mouth Active DULoxetine (CYMBALTA) [address] capsule Take 60 mg by mouth 1 (one) time each day Do not crush or chew. Active dicyclomine (BENTYL) 10 MG capsule Take 10 mg by mouth 4 (four) times a day (before meals and nightly) Active fluticasone (FLONASE) 50 MCG/ACT nasal spray Administer 1 spray into each nostril 1 (one) time each day Active clonazePAM (KlonoPIN) 1 MG tablet Take 1 mg by mouth 2 (two) times a day Active lamoTRIgine (LaMICtal) 25 MG tablet Take 25 mg by mouth 1 (one) time each day Active lurasidone (LATUDA) 40 MG tablet Take 40 mg by mouth 1 (one) time each day with breakfast Active Magnesium 400 MG tablet Take by mouth Active meloxicam (MOBIC) 7.5 MG tablet Take 7.5 mg by mouth 1 (one) time each day Active montelukast (SINGULAIR) 10 MG tablet Take 10 mg by mouth every night Active pantoprazole (PROTONIX) 20 MG EC tablet Take 20 mg by mouth 1 (one) time each day before breakfast Do not crush, chew, or split. Active prazosin (MINIPRESS) 5 MG capsule Take 5 mg by mouth every night Active QUEtiapine (SEROquel) 200 MG tablet Take 200 mg by mouth every night Active torsemide (DEMADEX) 20 MG tablet Take 20 mg by mouth 1 (one) time each day Active traZODone (DESYREL) 150 MG tablet Take 150 mg by mouth every night Active mesalamine (APRISO) 0.375 g 24 hr capsule Take 1.5 g by mouth 1 (one) time each day Do not crush or chew. Active Galcanezumab-gn lm 120 MG/ML solution auto-injector Inject under the skin Active ipratropium-alb uterol (DUO-NEB) 0.5-2.5 mg/3 mL nebulizer solution Take 3 mL by nebulization every 6 (six) hours Active polyethylene glycol (GLYCOLAX) 17 g packet Take 17 g by mouth 1 (one) time each day Active pregabalin (LYRICA) 75 MG capsule Take 75 mg by mouth 2 (two) times a day Active tiotropium (SPIRIVA) 18 MCG per inhalation capsule Place 1 capsule into inhaler and inhale 1 (one) time each day Active acetaZOLAMIDE (DIAMOX) 250 MG tablet Take 500 mg by mouth twice a day 0 Active propranolol (INDERAL) 20 MG tablet Take 20 mg by mouth as directed 0 Active Active Problems Problem Noted Date Diagnosed Date Heart failure with normal ejection fraction 06/2019 Migraine 02/01/2020 Chronic obstructive pulmonary disease 02/01/2020 Edema 02/01/2020 Stage 3b chronic kidney disease 01/31/2020 Overview (04/02/2020): Update for Diagnosis Load Social History Tobacco Use Types Packs/Day Years Used Date Smoking Tobacco: Unknown Comments Unknown Sex and Gender Information Value Date Recorded Sex Assigned at Not on file Legal Sex Female 11:54 AM EDT Gender Identity Not on file Sexual Orientation Not on file Last Filed Vital Signs Vital Sign Reading Time Taken Comments Blood Pressure 124/68 07/04/2020 3:01 PM EDT Pulse - - Temperature - - Respiratory Rate - - Oxygen Saturation - - Inhaled Oxygen Concentration - - Weight - - Height - - Body Mass Index - - Plan of Treatment Health Maintenance Due Date Last Done Comments Breast Cancer Screening 1971 Hepatitis B Vaccine (1 of 3 - 19+ 3-dose series) 11/26 Pneumococcal Vaccine: 50+ Years (1 of 2 - PCV) 991 Colorectal Cancer Screening: Annual FOBT 11/26/2020 Colorectal Cancer Screening: Colonoscopy 11/26/2020 Colorectal Cancer Screening: Sigmoidoscopy 11/26/2020 Influenza Vaccine (#1) 2024 Insurance [facility] Teams Security Systems Sales Representative Relationship Specialty Start Date End Date Milla Fuchs NP [address] [place] [id number] PCP - General 01/04/20
--- OUTSIDE RECORDS SUMMARY | 2025-01-22 20:16 | XMS_ITS | Encounter Summary ---
Author Organization [facility] Address [address] [place] [address] Phone Care Team Providers Care Architectural Associate Name Role Phone Edie Bee MD Primary Care Pro vider Encounter Details Date Type Department Care Team (Late st Contact Info) Description 01/28/2022 Procedure Pass [facility], Ct Scan - [facility] [place] [facility] [address] [place] [address] Social History Tobacco Use Types Packs/Day Years [...] filedocumented in this encounter Additional Health Concerns Assessment Noted Time PHQ-2 Depression Total Score: 0 01/29/20 22 7:54 AM EDT documented as of this encounter Care Teams Architectural Associate Relationship Specialty Start Date End Date Edie Bee MD PCP - General Internal Medicine 01/27/22 documented as of this encounter Additional Source Comments The information contained in this document represents components of the legal health record. It is not the complete legal health record.[facility]
--- OUTSIDE RECORDS SUMMARY | 2025-01-22 20:16 | XMS_ITS | Encounter Summary ---
Author Organization [facility] Address [address] [facility] [address] [place] [address] Phone Care Team Providers Care Sailmaker Name Role Phone Wyatt Frazier MD Primary Care Provider [phone] Dewayne Hercules MD Primary Care Provider [phone] Pcp, Unknown Primary Care Provider Edie Crawley MD Primary Care Pro vider Encounter Details Date Type Department Care Team (Late st Contact Info) Description 06/04/2016 Ancillary Orders [facility] Diagnostic Radiology- [address] [address] Wyatt Frazier MD [address] [place] [id number] [email or web address] Headaches due to old head trauma Social History Tobacco Use Types Packs/Day Years [...] on file documented as of this encounter Results * XR SKULL COMPLETE 4 OR MORE VIEWS (06/04/2016 11:26 AM EST) Anatomical Region Laterality Modality Head Radiographic Tammy ging 06/04/2016 11:5 0 AM EST Impressions 06/04/2016 11:50 AM EST Stable appearance of the skull and neurostimulator leads. Narrative 06/04/2016 11:50 AM EST REPORT: SITE READ: 1 CLINICAL HISTORY: Neurostimulator, headache, trauma COMPARISON: July 17, 2014 FINDINGS: 4 views of the skull were obtained. There is no acute fracture or dislocation. The joint space is maintained. The soft tissues are unremarkable. Neuro stimulating wires are stable in position and appear intact. Procedure Note Marta Boston MD - 06/04/2016 REPORT: SITE READ: 1 CLINICAL HISTORY: Neurostimulator, headache, trauma COMPARISON: July 17, 2014 FINDINGS: 4 views of the skull were obtained. There is no acute fractureor dislocation. The joint space is maintained. The soft tissues areunremarkable. Neuro stimulating wires are stable in position and appear intact. IMPRESSION: Stable appearance of the skull and neurostimulator leads. 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 It is not the complete legal health record.[facility]
--- OUTSIDE RECORDS SUMMARY | 2025-01-22 20:16 | XMS_ITS ---
Author Organization [facility] Care Team Providers Care Placer Miner Name Role Phone Sari Vega Unavailable Unavailable Allergies and adverse reactions Code CodeSystem Substance Reaction Severity StartDate Concern Status 3648 RXNORM DroPERidol Anaphylaxis (code- 39400239, SNOMED CT) Severe 04/28/[address] Gluten Eruption (code- 001937326, SNOMED CT) Unknown 04/28/2023 active 2231 RXNORM Keflex Eruption (code- 296168384, SNOMED CT) Unknown 04/28/2023 active 7984 RXNORM Penicillin Eruption (code- 217331468, SNOMED CT) Unknown 04/28/[address] [place] Unknown 04/28/2023 active 33081 RXNORM sulfADIAZINE Eruption (code- 478560557, SNOMED CT) Unknown 04/28/2023 active 770120 RXNORM Toradol Unknown 04/28/2023 active Care Team Name Role Address Phone Organization [facility] Sari Vega PCP [address] [place] [address] 1, [place], [address], [place] (Office): : [facility] 04/29/2023 - 05/06/2023 Immunizations Immunization Status Vaccine Details Vaccine Code CodeSystem Shay e Notes TB 2 Step Mantoux Skin Test completed tuberculin skin test; unspecified formulation expiry: 03/29/2026 Mfg: Sanufi Given 0.1 ml Left Forearm intradermally Step 2 of Multi-step with next step required 98 CVX created date: 05/06/2023 consent date: 05/06/2023 administere d date: 05/06/2023 TB 2 Step Mantoux Skin Test completed tuberculin skin test; unspecified formulation lotNumber: [id number] expiry: 02/27/2026 Mfg: Sanofi Pasteur Given 0.1 ml Right Forearm intradermally Step 1 of Multi-step with next step required 98 CVX created date: 04/29/2023 consent date: 04/29/2023 administere d date: 04/29/2023 Mental Status Section Date Assessment Total Score Description 05/06/2023 BIMS 15 cognitively int act CAM 0 No delirium ind icated PHQ-9 00 04/30/2023 BIMS 15 cognitively int act CAM 0 No delirium ind icated PHQ-9 01 minimal depress ion Insurance Providers Problems Problem # Description Date of onset Resolved Date Code CodeSystem Concern Status 1 ANXIETY DISORDER, UNSPECIFIED 04/28/[address] active 2 CELIAC DISEASE 04/28/[address] ac tive 3 CHRONIC KIDNEY DISEASE, UNSPECIFIED 04/28/[address] active 4 DEPRESSION, UNSPECIFIED 04/28/[address] active 5 DIFFICULTY IN WALKING, NOT ELSEWHERE CLASSIFIED 04/28/[address] active 6 ESSENTIAL (PRIMARY) HYPERTENSION 04/28/[address] active 7 FIBROMYALGIA 04/28/[address] acti ve 8 GASTRO-ESOPHAGEAL REFLUX DISEASE WITHOUT ESOPHAGITIS 04/28/2023 04/28/[address] completed 9 HYPOTHYROIDISM, UNSPECIFIED 04/28/[address] active 10 MUSCLE WEAKNESS (GENERALIZED) 04/28/[address] active 11 OTHER ASTHMA 04/28/[address] acti ve 12 OTHER LACK OF COORDINATION 04/28/[address] active 13 OTHER SEASONAL ALLERGIC RHINITIS 04/28/[address] active 14 POST-TRAUMATIC STRESS DISORDER, UNSPECIFIED 04/28/[address] active 15 ULCERATIVE COLITIS, UNSPECIFIED, WITHOUT COMPLICATIONS 04/28/[address] active Reason for Referral No Reasons for Referral Entered Social History Social History Observation Description Start Date End Date Code Code System Current Smoking Status Tobacco smoking consumption unknown 570447226 SNOMED CT Sex Assigned At Female 1970 03989-1 LOINC Gender Identity Sexual Orientation Vital Signs Code Code System Vitals Name Values and Units Timing Information 9279-1 LOINC Respiratory Rate Value=16.0 Units=/m in 05/06/2023 8462-4 LOINC Blood Pressure-Diastolic Value=69 Un its=mmHg 05/06/2023 8480-6 LOINC Blood Pressure-Systolic Duowu=178 Un its=mmHg 05/06/2023 8310-5 LOINC Body Temperature Value=98.3 Units= F 05/06/2023 8867-4 LOINC Heart rate Value=76.0 Units=/min 09/2023 75227-1 LOINC O2 % BldC Oximetry Value=98.0 Units= % 05/06/2023 91327-2 LOINC Pain Level Value=0.0 05/06/2023 47592-7 LOINC Weight Dojas=235.6 Units=Lbs 07/2023 8302-2 LOINC Height Value=56.0 Units=Inches 04/28/2023
--- OUTSIDE RECORDS SUMMARY | 2025-01-22 20:16 | XMS_ITS | Continuity of Care Document ---
Author Name [facility] Address [address] [place] [id number] Organization Unknown Address [address] [place] [address] Medications No known medications Problems No known problems
--- OUTSIDE RECORDS SUMMARY | 2025-01-22 20:16 | XMS_ITS | Encounter Summary ---
Author Organization [facility] Address [address] [place] [address] Encounters * CPT with Medical [facility] at [facility] on 2025-01-11 Hi, I have had a severe migraine for almost 3 weeks. I saw [facility]rett during the weekend and he gave me Reglan and Toradol IM because he could not get an IV. I have been nauseous and in a lot of pain. { reasonForRequest : Migraine , patientReports : , denies :[ Worst Headache of life , New onset of vision loss , Sudden onset -unilateral weakness/gait disturbance , Fall with head strike and altered LOC ,"New onset of Slurred speech or difficulty finding words , Sudden Mental status changes", Head pain with fever chills and neck pain , Seizure activity ], elisabet fComplaints : Headache , pmh : Severe Persistent Mental Illness (SPMI), Asthma, Hypothyroidism, Migraine, Anxiety Disorder, Depression , allergies : P enicillins, Sulfa (Sulfonamide Antibiotics), Keflex, Toprol Xl, Droperidol , otherAllergies :null, painAssessment : , visitOutcome : , add itionalComments : Additional PMH: Celiac Disease\n54 y.o female complains of Headache\nPatient calling reporting on going migraine headache for approx three weeks. Patient states she was seen over the weekend and given Reglan and IM Toradol. Patient reports she has been taking Excedrin migraine at home with no relief in symptoms. Patient states called PCP today who encouraged her to call back for another visit and see if she could get medications and IV fluids. Patient has known migraine history, but states this is worse then her usual migraines as it has lasting longer and the painis waking her up in the night. Patient reports nausea but no vomiting. Patient reports intermittentblurred vision which is typical of her migraines. Patient denies fever or chills. Patient speaking in full, complete, coherent sentences at time of call. I provided information on the mobile health provider response time and advised the patient and/or caregiver to monitor reported signs and symptoms. I discussed the warning signs of when to seek emergency care -Ilya Lovell RN } Dispatched to above address for headache. On arrival patient 54 y/o F< met SC12 at the door, walking unassisted with normal gait, AOX4, airway patentl, speaking in full sentences, good color, in no apparent distress. Patient reports she has had a worsening migraine over the last 3 weeks, has been see by our service any by PCP without relief, has been taking excedrine migraine without relief. Gal snyder vital signs checked. Secondary assessment, pupils PERRL, airway patent, no JVD, trachea midline, equal chest rise and fall, lungs clear all marroquin, abdomen soft non tsnser, no signs of trauma,good radial pulse, skin pink warm and dry. Patient reports pain is 10/10, states its usualy only fixed by Morphine or Fentanyl when it gets like this. [facility] contacted, spoke with Dr. simmons, advised ofpatient complaints and exam findings. [facility] ordered IV established, 500ml LR, 5mg Reglan and 25mg Benardryl. Patient reports she usually requires ultrasound guided IVs. IV access attempted L AC R bicepwithout sucsess. [facility] ordered meds given IM. All med rights verified. Patient administered 5mg Reglan and 25mg Benadryl IM. Patient states she has a follow up with a sleep study and neuro this week. Patient advised of home care, red flags and need for follow up. Patient has no additional questions or concerns at this time. SC12 clear. EOR. IV_(FLUIDS_AND/OR_MEDICATION), MEDICATION_IM, EKG, POC_FLU_STREP, COVID_TEST [facility]
--- OUTSIDE RECORDS SUMMARY | 2025-01-22 20:17 | XMS_ITS | Data Portability ---
Author Organization [place] - [facility] Address [address] [place] [id number] Care Team Providers Care Nurse Wound Name Role Phone GUTIERREZ RENTERIA Primary Care Provider Assessment Encounter Date Assessment Date Assessment LastModified by Organization Details LastModified Time 09/27/2019 09/27/2019 Overview/History : 48-year-old female with 2 weeks of lower extremity edema. Contacted her PCP about this and was advised to go to the ED, YESSICA has been ordered and she is awaiting appointment. Seen in the ED multiple times for leg edema, leg pain, shortness of breath, most recently 4 days ago with negative ultrasound the extremities, chest x-ray, BNP, be MP, kg. Patient has appointment next week for pain management for leg pain. Currently taking Tylenol, Lyrica, Cymbalta and is requesting medication for her leg pain today. Reports fever yesterday and the day before of 100.9 Fahrenheit, shortness of breath, cough, wheeze. Denies chest pain, palpitations, dizziness. Lasix recently increased to 80 mg twice daily. Advised to wear the compression stockings daily however does not have them on today. Exam: Comfortable appearing female, afebrile. Heart sounds were heard, lungs clear, the mild edema distal third left lower extremity foot the. EKG sinus rhythm the with trace the ST depression in the AVL, trace elevation in III and aVF the. Chem-7 within normal limits. DDx considered, but not limited to: Consider claudication, patient's leg pain worse with walking. Considered peripheral vascular disease, patient has had multiple recent negative venous ultrasounds. Consider fibromyalgia as cause of leg pain however tender points only located through the legs and she is currently on Cymbalta and Lyrica along with antidepressants which would be a treatment for fibromyalgia. Consider renal disease however renal function within normal limits. Concern possible psychosomatic pain. Work up/Results: EKG sinus rhythm the with trace the ST depression in the AVL, trace elevation in III and aVF the. Chem-7 within normal limits. Plan/Discussion: Etiology of patient's symptoms is uncertain however she does have active plan in place by PCP for YESSICA and pain management, has had multiple recent ED visits with significant negative testing come at this point will not obtain a chest x-ray as 1 was just obtained 4 days ago and was without any abnormal findings. Will obtain the FIELD CARE MANAGER to evaluate for possible CHF however lung sounds are clear and recent chest x-ray was negative. I advised to wear compression stockings, elevate feet throughout the day, avoid salt, and get exercise regularly. Patient has asthma but does not appear to have an acute exacerbation. Patient instructed to call if symptoms worsen or do not improve; patient acknowledges understands and agrees with plan. Note created with voice recognition software and may contain grammatical errors due to this. Patients PCP contacted and updated on patient status. Patient verbalized understanding of discharge instructions and when to follow up with PCP/911/ED as needed. Patient in agreement with current plan and treatment. Proper Personal Protective Equipment (PPE), including gloves, eye protection and masks were donned and doffed appropriately and all equipment cleaned using approved technique with germicidal disposable wipes prior to and after care of this patient according to [facility]'s infection prevention protocols. In order to obtain further information and compare any laboratory results/values, I have accessed patient records on the [employer]. This information was pertinent in my medical decision making today. [email or web address] Not available 09/27/2019 12:23:03 09/29/2019 09/29/2019 Overview/History : 48-year-old female who continues to have left leg pain, swelling. Has appointment with pain management in 5 days, has appointment for YESSICA on 11/23, has been seen multiple times at the ED for the same with large negative work-up including venous US, taking Lyrica, Cymbalta. Also reporting 3 days of central abdominal pain from the pelvis to the epigastric area that is sharp in nature. Also reporting nausea for which she is taking zofran without relief. Has UC and celiac disease and states when she has a flair, has diarrhea. Denies fever, vomiting, diarrhea, constipation, chest pain, palpitations, dizziness. States is only drinking water and is unable to eat in 3 days due to nausea. Exam: Comfortable appearing middle ages female, morbidly obese, afebrile. Heart sounds regular, lungs clear, abdomen obese and soft with pain to gentle palpation throughout all areas. LLE: mild edema noted from the distal 1/3 lower extremity through the foot. No rash, discoloration, erythema or ecchymosis. Skin is clean dry and intact without evidence of wounds or lacerations. DDx considered, but not limited to: Consider pancreatitis given nausea and epigastric pain. Consider gallbladder etiology given nausea worse with eating, however, less likely as patient has had cholecystectomy. Consider AAA however, sharp and tearing and stabbing in nature the worsened with eating along with the nausea making less likely. Consider gastritis however given generalized abdominal pain, this appears less likely. The consider possibly UC flare however no diarrhea makes less likely. Work up/Results: Plan/Discussion: Etiologic of abdominal pain uncertain. Patient appears comfortable on exam but reports significant abdominal pain and has not eaten in 3 days. Patient transferred to [facility] ED for evaluation and management. Discussed with patient, has good plan in place regarding leg pain and swelling. Has pain management appointment in 5 days, has appt for YESSICA in October. Has had multiple negative tests through her PCP and ED. Is currently on Lyrica and Cymbalta for pain Discussed with patient, at this point , there does not appear to be and further help we can offer. Advised to go to the store and get the compression stockings and wear them every day, elevate feet throughout the day above the level of heart, avoid salt. Patient instructed to call if symptoms worsen or do not improve; patient acknowledges understands and agrees with plan. Note created with voice recognition software and may contain grammatical errors due to this. Patients PCP contacted and updated on patient status. Patient verbalized understanding of discharge instructions and when to follow up with PCP/911/ED as needed. Patient in agreement with current plan and treatment. Proper Personal Protective Equipment (PPE), including gloves, eye protection and masks were donned and doffed appropriately and all equipment cleaned using approved technique with germicidal disposable wipes prior to and after care of this patient according to [facility]'s infection prevention protocols. In order to obtain further information and compare any laboratory results/values, I have accessed old patient records. This information was pertinent in my medical decision making today. [email or web address] Not available 09/29/2019 14:19:25 10/01/2019 10/01/2019 Time On Scene with Patient: 00:33:22 DDX: SBO, pancreatitis, diverticulitis, gastritis, FLAQUITA, dehydration Pt evaluated 5 times in the past week for similar complaints, twice in two different EDs and 3 visits with . Pt has had unremarkable labs when they have been evaluated. Pt has refused CT when offered. This makes further evaluation difficult if not impossible. Pt has tachycardia today but this is something not unusual for her with her anxiety. Her current labs done on scene do not indicate FLAQUITA or electrolyte derangement. Labs will be sent to [facility] for LFTs. PT advised to seek ED yet again if her pain persists or worsens or she does not tolerate PO. She verbally agrees to this. Pt has long history of frequent ED visits but cannot determine further pathology with limited resources in the home. Pt ambulating in her apartment at completion of visit Not available 10/01/2019 19:31:30 10/16/2019 10/16/2019 Overview/History : 38-year-old female who 30 minutes prior to exam was eating much as tingling of her lips swelling of her tongue, pain with swallowing but denies difficulty swallowing. States has had some worsening shortness of breath but denies any change recently. The states has tried nothing for relief. Exam: Comfortable female, afebrile. Heart sounds regular, lungs clear. The patient ambulating well around her apartment without the use of any assistive device. Mouth and oropharynx: No erythema, edema, exudates noted to the posterior oropharynx. Tongue without edema; lips without edema, vesicles, cracking. No rashes noted. DDx considered, but not limited to: Consider allergic reaction given patient's nodular prostate gland. The onset or anaphylaxis however the patient is talking without difficulty and a clearance of the voice, the edema or erythema of the mouth or oropharynx m aking less likely. Work up/Results: Plan/Discussion: Patient received 50 mg Benadryl during visit today given her symptomatology. Advised to hold the Aromasin until the a.m., patient took at 6:00 a.m. this morning, 11 hours ago. Patient advised to avoid nuts and to follow with her vp product marketing for further testing.Patient advised if develops difficulty breathing, swallowing, swelling of the lips or tongue, go to the ED. Patient instructed to call if symptoms worsen or do not improve; patient acknowledges understands and agrees with plan. Note created with voice recognition software and may contain grammatical errors due to this. Patients PCP contacted and updated on patient status. Patient verbalized understanding of discharge instructions and when to follow up with PCP/911/ED as needed. Patient in agreement with current plan and treatment. Proper Personal Protective Equipment (PPE), including gloves, eye protection and masks were donned and doffed appropriately and all equipment cleaned using approved technique with germicidal disposable wipes prior to and after care of this patient according to [facility]'s infection prevention protocols. In order to obtain further information and compare any laboratory results/values, I have accessed old patient records. This information was pertinent in my medical decision making today. [email or web address] Not available 10/16/2019 17:09:48 Plan of Treatment Reminders Order Date Submit Date Provider Last Modified By Organization Details Last Modified Time Details Appointments None recorded. [facility], [address] [place], [address], 0 19:07:13 creatinine , blood 2019 [facility]20 [facility], [address] [place], [address], 0 19:07:14 hepatic function panel, serum 2019 020 AYE [facility] (Centralized Electronic Ordering - All Locations), Patient Can Go To The Location Of Their Choice, [id number] 0 21:14:15 6+ iStat 2019 020 lsaloio [facility] - [facility], [address] [place], [address], 0 12:02:20 creatinine , blood 2019 020 lsaloio [facility], [address] [place], [address], 0 12:02:20 pro BNP (pro B-type natriureti c peptide), serum or plasma 2019 AYE [facility] (Centralized Electronic Ordering - All Locations), Patient Can Go To The Location Of Their Choice, [id number] 0 20:10:27 Referral None recorded. Procedures None recorded. Surgeries None recorded. Imaging None recorded. Medication Orders diphenhydr amine 25 mg tablet 2019 lsaloio [id number], [address] [place] [address], [address], 0 16:54:13 promethazi ne 25 mg rectal suppositor y 2019 INTERFACE [id number], [address] [facility], [place], [address], 0 19:10:52 Patient TargetsNo targets recorded. Patient Instructions Encounter Date Encounter Id Patient Instructions Last Modified By Organization Details Last Modified Time 10/01/[id number] [facility] came to your home to evaluate you for nausea, vomiting, swollen legs, decreased urination. You have been having these symptoms for weeks. You went to the [facility] ED for the same symptoms on 09/29/2019. Your labs then were unremarkable. We did check your labs while we were in your home. We also sent labs to check liver function tests to [facility]. You are already taking zofran for nausea. We sent a prescription to the pharmacy for phenergan suppositories for nausea. In the meantime if youu feel worse, have worsening pain, unable to keep things down or feel worse, you will have to go to the ED> We had a challenging time getting blood from you and your veins are difficult to find. Please call your PCP for follow up this week. Not available 10/01/2019 19:09:31 Reason for Referral None Reported. Results Created Date Observation Date Name Description Value Unit Range Abnormal Flag Note LastModifiedBy Organization Detail LastModifiedTime 10/01/1910/01/2019 creat inine , blood crea 1.3 mg/dL 0.6-1. 3 Not Available [facility] - [address] [place], [address], 10/01/2019 19:03:47 09/27/19 20 09/27/2019 creat inine , blood crea 1.3 mg/dL 0.6-1. 3 Not Available [facility] - [facility] [address] [place], [address], 09/27/2019 11:38:47 09/27/19 20 09/27/2019 pro BNP (pro B-typ e natri ureti c pepti de), serum or plasm a pro BNP 262 pg/mL (0-125 ) high Not Available [facility] (Centralized Electronic Ordering - All Locations) Patient Can Go To The Location Of Their Choice, [id number] 09/27/2019 20:10:26 09/27/19 20 09/27/2019 6+ iStat Na 140 mmol/ L 138-14 6 Not Available [facility] - [facility] [address] [place], [address], 09/27/2019 11:38:31 09/27/19 20 09/27/2019 6+ iStat K 4.1 mmol/ L 3.5-4. 9 Not Available [facility] - Home [address] [place], [address], 09/27/2019 11:38:31 09/27/19 20 09/27/2019 6+ iStat cL 104 mmol/ L 98-109 Not Available [facility] - [facility] [address] [place], [address], 09/27/2019 11:38:31 09/27/19 20 09/27/2019 6+ iStat BUN 19 mg/dL 8-26 Not Available [facility] - [facility] [address] [place], [address], 09/27/2019 11:38:31 09/27/19 20 09/27/2019 6+ iStat glu 77 mg/dL 70-105 Not Available [facility] - [facility] [address] [place], [address], 09/27/2019 11:38:31 09/27/1909/27/2019 6+ iStat HCT 34 %_pcv 37-47 Not Available [facility] - [facility] [address] [place], [address], 09/27/2019 11:38:31 09/27/1909/27/2019 6+ iStat Hb 11.6 g/dL 12-17 Not Available [facility] - [facility] [address] [place], [address], 09/27/2019 11:38:31 10/01/1910/01/2019 hepat ic funct ion panel , serum bilirubin,to robert 0.1 mg/dL (0-1.2 ) Not Available [facility] (Centralized Electronic Ordering - All Locations) Patient Can Go To The Location Of Their Choice, 10/01/2019 21:14:15 10/01/1910/01/2019 hepat ic funct ion panel , serum bilirubin, direct 0.0 mg/dL (0-0.3 ) Not Available [facility] (Centralized Electronic Ordering - All Locations) Patient Can Go To The Location Of Their Choice, 10/01/2019 21:14:15 10/01/1910/01/2019 hepat ic funct ion panel , serum indirect bilirubin 0.1 mg/dL (0.0-0 .7) Not Available [facility] (Centralized Electronic Ordering - All Locations) Patient Can Go To The Location Of Their Choice, 10/01/2019 21:14:15 10/01/1910/01/2019 hepat ic funct ion panel , serum albumin 4.0 gm/dL (3.4-4 .8) Not Available [facility] (Centralized Electronic Ordering - All Locations) Patient Can Go To The Location Of Their Choice, 10/01/2019 21:14:15 10/01/1910/01/2019 hepat ic funct ion panel , serum AST 30 U/L (0-32) Not Available [facility] (Centralized Electronic Ordering - All Locations) Patient Can Go To The Location Of Their Choice, 10/01/2019 21:14:15 10/01/1910/01/2019 hepat ic funct ion panel , serum ALT 30 U/L (0-33) Not Available [facility] (Centralized Electronic Ordering - All Locations) Patient Can Go To The Location Of Their Choice, [id number] 10/01/2019 21:14:15 10/01/1910/01/2019 hepat ic funct ion panel , serum alk phos 84 U/L (35-10 4) Not Available [facility] (Centralized Electronic Ordering - All Locations) Patient Can Go To The Location Of Their Choice, [id number] 10/01/2019 21:14:15 10/01/1910/01/2019 hepat ic funct ion panel , serum total protein 6.2 gm/dL (6.2-8 .2) Not Available [facility] (Centralized Electronic Ordering - All Locations) Patient Can Go To The Location Of Their Choice, [address] 10/01/2019 21:14:15 10/01/1910/01/2019 6+ iStat Na 140 mmol/ L 138-14 6 Not Available [facility] - [facility] [address] [place], [address], 10/01/2019 19:03:44 10/01/1910/01/2019 6+ iStat K 3.6 mmol/ L 3.5-4. 9 Not Available [facility] - [facility] [address] [place], [address], 10/01/2019 19:03:44 10/01/1910/01/2019 6+ iStat cL 104 mmol/ L 98-109 Not Available [facility] - [facility] [address] [place], [address], 10/01/2019 19:03:44 10/01/1910/01/2019 6+ iStat BUN 17 mg/dL 8-26 Not Available [facility] - [facility] [address] [place], [address], 10/01/2019 19:03:44 10/01/1910/01/2019 6+ iStat glu 123 mg/dL 70-105 Not Available [facility] - Home [address] [place], [address], 10/01/2019 19:03:44 10/01/19 20 10/01/2019 6+ iStat HCT 33 %_pcv 37-47 Not Available [facility] - [facility] [address] [place], [address], 10/01/2019 19:03:44 10/01/19 20 10/01/2019 6+ iStat Hb 11.2 g/dL 12-17 Not Available [facility] - [facility] [address] [place], [address], 10/01/2019 19:03:44 10/07/19 20 elect anitadennis tanyagr am No observ ation record ed. BARCODE Not Available 2019 08:58:36 Result Notes None recorded. Procedures Surgical History Date Name Laterality Status Provider Name and Address Organization Details Recorded Time 09/27/19 20 Venipuncture - completed TAYLOR JOYNER [address] [place], [address], [place] [facility] 09/27/2019 11:38:20 09/27/19 ECG Interpretation - completed TAYLOR JOYNER [address] [place], [address], [place] [facility] 09/27/2019 11:58:23 Imaging Results None recorded. Procedure Notes None recorded. Medical Equipment None Reported. Allergies Allergen ID Allergen Name Allergen Category Reaction Reaction Severity Criticality Documentation Date Start Date Code Code System Note Provider Name and Address Organization Details Recorded Time 092819 Product containin g penicilli n (product) medicatio n Not available Not available Not available 09/27/2019 11620 8001 SNOMED TAYLOR JOYNER [address] [place], [address], [place] [facility] 0 11:09:44 [id number] Substance with sulfonami de structure and antibacte rial mechanism of action (substanc e) medicatio n Not available Not available Not available 09/27/2019 78507 8003 SNOMED TAYLOR JOYNER [address] [place], [address], [place] [facility] 0 11:09:50 858468 Keflex medicatio n Not available Not available Not available 09/27/201911965 7 RxNoTAYLOR Jackson [address], [place], [place], [address], [place] [facility] 0 11:09:55 607060 droperido l medicatio n Not available Not available Not available 09/27/2019 3648 RxNoTAYLOR Jackson [address], [place], [address], [place] [facility] 0 11:10:05 Medications Name Sig Start Date Stop Date Status Note LastModified by Organization Details LastModified Time bupropion HCl SR 150 mg tablet,12 hr sustained-r elease active Not Available Not Available Not Available promethazin e-DM 6.25 mg-15 mg/5 mL oral syrup TAKE 5 MLS BY MOUTH EVERY 6 HOURS NEEDED FOR COUGH active Not Available Not Available No t Available levothyroxi ne 137 mcg tablet active Not Available Not Available Not Available nystatin 100,000 unit/mL oral suspension 09/26 completed Not Available Not Available Not Available doxycycline hyclate 100 mg capsule 09/26 completed Not Available Not Available Not Available naproxen 375 mg tablet active Not Available Not Available Not Available quetiapine 300 mg tablet active Not Available Not Available Not Available divalproex 250 mg tablet,rhiannon yed release active Not Available Not Available Not Available cetirizine 10 mg tablet active Not Available Not Available Not Available azithromyci n 250 mg tablet TAKE 2 TABLETS BY MOUTH DAILY FOR FIRST DAY THEN 1 TABLET DAILY FOR 4 DAYS active Not Available Not Available No t Available promethazin e 25 mg rectal suppository UNWRAP & INSERT 1 SUPPOSITO RY RECTALLY TWICE A DAY NEEDED FOR NAUSEA AND VOMITING active Not Available Not Available No t Available ondansetron HCl 4 mg tablet active Not Available Not Available Not Available prednisone 20 mg tablet active Not Available Not Available Not Available quetiapine 200 mg tablet active Not Available Not Available Not Available clonazepam 1 mg tablet active Not Available Not Available Not Available clindamycin HCl 150 mg capsule 09/26 completed Not Available Not Available Not Available divalproex 500 mg tablet,rhiannon yed release active Not Available Not Available Not Available tramadol 50 mg tablet 09/26 completed Not Available Not Available Not Available quetiapine 100 mg tablet active Not Available Not Available Not Available bupropion HCl SR 100 mg tablet,12 hr sustained-r elease active Not Available Not Available Not Available lamotrigine 25 mg tablet active Not Available Not Available Not Available pantoprazol e 20 mg tablet,rhiannon yed release active Not Available Not Available Not Available meloxicam 7.5 mg tablet active Not Available Not Available Not Available prazosin 5 mg capsule active Not Available Not Available N ot Available magnesium oxide 400 mg (241.3 mg magnesium) tablet active Not Available Not Available Not Available cimetidine 200 mg tablet TAKE 1 TABLET BY MOUTH EVERY DAY active Not Available Not Available No t Available Daily Vites/Iron tablet active Not Available Not Available Not Available trazodone 150 mg tablet active Not Available Not Available Not Available levothyroxi ne 125 mcg tablet active Not Available Not Available Not Available diphenhydra mine 25 mg tablet 50 mg PO administe red on scene. Time administe red: 16:53 2019 active Not Available Not Available Not Avai lable trazodone 300 mg tablet active Not Available Not Available Not Available magnesium citrate oral solution TAKE 296 MLS BY MOUTH DAILY NEEDED FOR CONSTIPAT ION active Not Available Not Available No t Available montelukast 10 mg tablet active Not Available Not Available Not Available bisacodyl 5 mg tablet,rhiannon yed release active Not Available Not Available Not Available ranitidine 150 mg capsule active Not Available Not Available Not Available furosemide 20 mg tablet TAKE 2 TABLETS BY MOUTH TWICE A DAY active Not Available Not Available No t Available albuterol sulfate HFA 90 mcg/actuati on aerosol inhaler active Not Available Not Available Not Available ferrous sulfate 325 mg (65 mg iron) tablet,rhiannon yed release active Not Available Not Available Not Available ondansetron 4 mg disintegrat ing tablet DISSOLVE 1 TABLET IN MOUTH 3 TIMES A DAY FOR 5 DAYS NEEDED FOR NAUSEA AND VOMITING active Not Available Not Available No t Available fluticasone propionate 50 mcg/actuati on nasal spray,suspe nsion active Not Available Not Available Not Available dicyclomine 10 mg capsule active Not Available Not Available Not Available metoclopram alanna 10 mg tablet active Not Available Not Available Not Available simethicone 80 mg chewable tablet CHEW 1 TABLET BY MOUTH FOUR TIMES A DAY NEEDED FOR GAS active Not Available Not Available No t Available sumatriptan 6 mg/0.5 mL subcutaneou s pen injector active Not Available Not Available Not Available Daily-Madi tablet active Not Available Not Available Not Available bupropion HCl SR 200 mg tablet,12 hr sustained-r elease active Not Available Not Available Not Available azithromyci n 500 mg tablet 09/26 completed Not Available Not Available Not Available divalproex ER 250 mg tablet,exte nded release 24 hr active Not Available Not Available Not Available Vitamin D3 25 mcg (1,000 unit) tablet active Not Available Not Available Not Available Senna Plus 8.6 mg-50 mg tablet active Not Available Not Available No t Available bupropion HCl XL 150 mg 24 hr tablet, extended release TAKE 1 TABLET BY MOUTH EVERY DAY IN THE MORNING DIRECTED active Not Available Not Available No t Available duloxetine 60 mg capsule,del ayed release active Not Available Not Available Not Available lactulose 10 gram/15 mL oral solution active Not Available Not Available Not Available tizanidine 2 mg capsule active Not Available Not Available Not Available Pain Relief Extra Strength (acetaminop hen) 500 mg tablet TAKE 2 TABLETS BY MOUTH 3 TIMES A DAY NEEDED FOR FEVER active Not Available Not Available No t Available pregabalin 75 mg capsule active Not Available Not Available Not Available Lyrica 150 mg capsule active Not Available Not Available N ot Available quetiapine 50 mg tablet active Not Available Not Available Not Available diclofenac 1 % topical gel active Not Available Not Available Not Available mesalamine ER 0.375 gram capsule,ext ended release 24 hr active Not Available Not Available Not Available Apriso active Not Available Not Availa ble Not Available Gavilyte-C 240 gram-22.72 gram-6.72 gram-5.84 gram oral solution active Not Available Not Available Not Available Purelax 17 gram/dose oral powder active Not Available Not Available Not Available Xifaxan 550 mg tablet active Not Available Not Available No t Available Antacid-Ant igas 200 mg-200 mg-20 mg/5 mL oral suspension active Not Available Not Available N ot Available Latuda 20 mg tablet active Not Available Not Available No t Available Linzess 290 mcg capsule active Not Available Not Available Not Available Breo Ellipta 200 mcg-25 mcg/dose powder for inhalation active Not Available Not Available N ot Available Spiriva Respimat 1.25 mcg/actuati on solution for inhalation active Not Available Not Available N ot Available Trulance 3 mg tablet active Not Available Not Available No t Available Dupixent 300 mg/2 mL subcutaneou s syringe active Not Available Not Available No t Available Emgality Pen 120 mg/mL subcutaneou s pen injector active Not Available Not Available Not Available Vitals Date Recorded Oxygen saturation Oxygen saturation in Arterial blood by Pulse oximetry Respiratory rate Heart rate Body temperature Systolic And Diastolic Provider Name and Address Organization Details Last Updated DateTime 0 97 % 97 % 20 /min 96 /min 99 [degF] 118/88 mm[Hg] Not Available [facility] 0 11:12:04 Date Recorded Body temperature Oxygen saturation Oxygen saturation in Arterial blood by Pulse oximetry Respiratory rate Heart rate Systolic And Diastolic Provider Name and Address Organization Details Last Updated DateTime 0 98.5 [degF] 94 % 94 % 22 /min 107 /min 136/82 mm[Hg] Not Available [facility] 0 13:18:53 Date Recorded Heart rate Respiratory rate Body temperature Oxygen saturation Oxygen saturation in Arterial blood by Pulse oximetry Systolic And Diastolic Provider Name and Address Organization Details Last Updated DateTime 0 108 /min 18 /min 97.9 [degF] 96 % 96 % 126/86 mm[Hg] Not Available [facility] 0 18:42:13 Date Recorded Respiratory rate Body temperature Heart rate Oxygen saturation Oxygen saturation in Arterial blood by Pulse oximetry Systolic And Diastolic Provider Name and Address Organization Details Last Updated DateTime 0 28 /min 97.9 [degF] 110 /min 99 % 99 % 128/58 mm[Hg] Not Available [facility] 0 16:45:22 Social History None recorded. Functional Status None recorded. Mental Status None recorded. Family History Nothing Reported. Medical History Condition Response Diabetes N Coronary Artery Disease N High Cholesterol N Cancer N Pulmonary Embolism N Stroke N Hypertension N Depression Y COPD N Asthma Y Kidney Disease N Gynecological HistoryNo gynecological history recorded. Obstetrics History GPAL:G 0 P 0 0 0 0 Past Encounters Encounter ID Performer Location Encounter Start Date Encounter Closed Date Diagnosis/Indication Diagnosis SNOMED-CT Code Diagnosis ICD10 Code Diagnosis IMO Codes Diagnosis Note [id number] [facility] [address] [place] [address] 09/27/2019 11:08:23 09/27/2019 15:19:49 Edema of lower extremity 754643614 R60.0 Dyspnea 368664690 R06.00 Asthma 055489928 J45.90 [id number] OSKAR ARNDT [facility] [address] [place] [address] 09/29/2019 13:13:32 10/03/2019 14:42:28 Pain in left lower limb 271435566 M79.605 Edema of l ower extremity 284112620 R60.0 Abdominal pain 93559756 R10.9 [id number] JESSICA BESS NP [facility] [address] [place] [address] 10/01/2019 17:56:30 10/03/2019 17:56:46 Nausea and vomiting 20584743 R11.2 Abdominal pain 99491291 R10.9 [id number] [facility] [address] [facility] [place] [address] 10/16/2019 16:41:32 10/19/2019 13:42:20 Allergic reaction to food 523087707 T78.1XXA Health Concerns Section Related Observation LastModified by Organization Detai ls LastModified Time None Recorded Concern Status LastModified by Organization Details LastModified Time None Recorded Advance Directives Directive None Recorded Payers Insurance Date Sequence Insurance Name Policy Number Policy Bello Covered Member ID Bello Member ID Guarantor Name 10/04/2019 1 *SELF PAY* Lise Grace [id number] Lise Grace 10/04/2019 1 [facility] - DOS PRIOR TO 2022 - DUAL ELIGIBLE (MEDICARE REPLACEMENT/AD VANTAGE - HMO) Lise Grace [id number] Lise Grace 10/27/2019 1 [facility] - DOS PRIOR TO 2022 - DUAL ELIGIBLE (MEDICARE REPLACEMENT/AD VANTAGE - HMO) Lise Grace [id number] Lise Grace 10/04/2019 1 [place] [employer] Lise Grace [id number] Lise Gutermann 10/04/2019 2 [employer] [facility] - DOS PRIOR TO 2022 - DUAL ELIGIBLE (MEDICARE REPLACEMENT/AD VANTAGE - HMO) Lise Gutermann [id number] Lise Gutermann 10/27/2019 1 [employer] - DOS PRIOR TO 2022 - DUAL ELIGIBLE (MEDICARE REPLACEMENT/AD VANTAGE - HMO) Lise Gutermann [id number] Lise Gutermann 10/04/2019 1 [facility] - DOS PRIOR TO 2022 - DUAL ELIGIBLE (MEDICARE REPLACEMENT/AD VANTAGE - HMO) Lise Muñozermann [id number] Lise Gutermann 10/04/2019 2 [place] [facility] Lise Muñozted [id number] Lise Gutermann 10/04/2019 1 [place] [employer] Lise Toniermann [id number] Lise Gutermann 10/04/2019 1 [employer] - DOS PRIOR TO 2022 - DUAL ELIGIBLE (MEDICARE REPLACEMENT/AD VANTAGE - HMO) Lise Muñozermann [id number] Lise Gutermann 10/04/2019 1 [place] [employer] Lise Gutermann [id number] Lise Gutermann 10/04/2019 1 [place] [employer] Lise Gutermann [id number] Lise Gutermann 10/04/2019 2 [employer] - DOS PRIOR TO 2022 - DUAL ELIGIBLE (MEDICARE REPLACEMENT/AD VANTAGE - HMO) Lise Muñozermann [id number] Lise Gutermann 10/04/2019 2 [employer] - DOS PRIOR TO 2022 - DUAL ELIGIBLE (MEDICARE REPLACEMENT/AD VANTAGE - HMO) Lise Gutermann [id number] Lise Gutermann 10/04/2019 1 [place] [employer] Lise Gutermann [id number] Lise Tonited Notes Date Note Type Note Provider Name and Address Organization Details Recorded Time 09/27/2019 text/html 48-year-old female presents for evaluation. Reports 2 weeks ago noted swelling of both legs (L>R). Reports pain of both legs. States spoke with PCP over phone 2 weeks ago about this and was advised to go to the ED. went to [facility] ED for the same 4 days ago and was advised to use compression stockings, elevate legs. Has been seen 3 times recently for US to assess for DVT and was negative, most recently last week. Has YESSICA ordered by PCP and is awaiting appointment. Reports fever for the past 2 days of 100.9F. States took 100 mg Tylenol 2 hours prior to exam today. Denies chest pain, dizziness, abdominal pain. Reports 3 days of shortness of breath both at rest and with exertion; also reports wheeze, cough. States leg pain mostly with walking but does note some pain at rest. Has appointment next week with pain management in [place]. Patient has had multiple recent ED visits for shortness of breath, leg edema, and leg pain. US has been negative for DVT, BNP, BMP within normal limits, chest xray negative 4 days ago, COVID testing negative, EKG sinus rhythm with prolonged QT and no ischemic changes noted. [facility] JOYNER, [place], [address], [place] [facility] 09/27/2019 12:23:26 09/29/2019 text/html 48-year-old female presents for evaluation of leg concern. States her left foot is more swollen than her right and it is discolored. States top of foot is a purplish color . has been elevating legs and taking lasix as prescribed. has not gotten compression stockings yet as they are still at the store. When asked where the socks were that she reported wearing 2 days ago, she states she doesn't have any . When asked why she said she was wearing them 2 days ago, she states I'm sorry . Reports leg pain and wants us to take the pain away . At the end of exm, patient reports 3 days of abdominal pain which she reports as sharp and from her pelvis to the epigastric area and worse with eating, also reports nausea. Denies fever, vomiting, diarrhea, constipation. is only able to drink water and had jello 3 days ago but nothing since. Denies palpitation, chest pain. took Zofran approximately 30 minutes prior to exam. [facility] JOYNER, [place], [address], [place] [facility] 09/29/2019 14:20:03 10/01/2019 text/html 48 year-old female with history of migraines, anxiety, depression, UC, cholecystectomy, celiac disease, asthma, lower back pain secondary to trauma , TBI from 2016 with memory issues who calls to her home for evaluation of nausea, vomiting and lethargy. She also complains of bilateral lower leg pain. She has been having abdominal pain for past 2 weeks to the midabdominal area. She has been having continued complaints like this which cause her to go to the ED. SHe has had over 54 visits to the ED within the past 12 months and 3 visits over the past week. She has been to the ED on 09/26 and 09/28 for similar complaints. Labs are unremarkable and she is discharged home. She reports that she usually refuses the CT when it is offered. She denies fevers or chills.She denies fevers, chills. She reports urinating only once daily even though she is on lasix 80 mg BID for lower extremity swelling. JESSICA BESS NP [address], [place], [address], [place] [facility] 10/01/2019 19:31:57 10/16/2019 text/html 48-year-old female presents for evaluation. Reports approximately 30 minutes prior to arrival was eating walnuts and developed tingling of her lips. Reports pain with swallowing. States is able to swallow. Reports has asthma and with the heat, has had some shortness of breath but denies worsening at this time. States feels that tongue is swollen. States has tried nothing for relief. T[facility] JOYNER [address], [place], [address], [place] [facility] 10/16/2019 17:09:56 OBGyn Episode No OBEpisode recorded.
--- NOTE | 2025-01-22 20:48 | PC.NURSE ---
PT from triage, found in bed CAOx4 reporting 10/10 headache x1 month along with new onset of L sided sensory weakness and blurry vision that onset when pt woke up approx. 16 hours ago. On assessment pt displayed no facial droop, eye deviation, or slurred speech. PT did present with left arm drift and left upper/lower extremity weakness. PT does have a PMH of left sided weakness documented form 2020. MD Sanchez aware of pt condition awaiting orders at this time.
[2025-01-22 20:58] VITALS: BP 139/86; PULSE 83; RESP 20; TEMP 36.4; O2SAT 96
--- NOTE | 2025-01-22 23:08 | PC.NURSE ---
multiple attempts made for iv at this time, Plan for US guided. TAYLOR Ramírez aware
[2025-01-22 23:35] VITALS: BP 164/95; PULSE 81; RESP 15; TEMP 36.8; O2SAT 95
[2025-01-22 23:54] VITALS: RESP 18
--- NOTE | 2025-01-23 01:12 | PC.NURSE ---
pt IV infiltrated, TAYLOR Ramírez aware, awaiting for new IV access
--- NOTE | 2025-01-23 02:08 | PC.NURSE ---
TAYLOR Ramírez placed new US Guided IV in left upper arm, fluids restarted and pt medciated per mar
[2025-01-23 02:10] VITALS: RESP 16
[2025-01-23 02:16] VITALS: BP 115/89; PULSE 80; RESP 15; TEMP 36.7; O2SAT 94
[2025-01-23 04:04] VITALS: BP 137/78; PULSE 85; RESP 16; TEMP 36.7; O2SAT 94
== END 2025-01-23 04:16 | disposition home or self-care (01) ==
PROVIDERS: Nurse Practitioner Family; Emergency Provider Emergency Medicine; PCP Internal Medicine
DX: G43.909 Migraine, unspecified, not intractable, without status migrainosus (principal); R11.0 Nausea; Z79.899 Other long term (current) drug therapy
CPT/HCPCS: 36415; 70450; 80048; 85025; 96361; 96374; 96375; 96376; 99285; J2270; J2405

== ENCOUNTER → 2025-01-22 21:46 | Outpatient (BNV) | payer OTHER, SELFPAY | PROVIDERS: Emergency Provider Emergency Medicine; PCP Internal Medicine; Visit Provider Radiology Diagnostic Radiology | DX: R51.9 Headache, unspecified (principal) | CPT/HCPCS: 70450 ==

== ENCOUNTER 2025-02-04 08:34 | Emergency (ER) | payer OTHER, SELFPAY ==
--- OUTSIDE RECORDS SUMMARY | 2010-10-01 04:30 | XMS_ITS | Continuity of Care Document ---
Author Organization [facility] Address [address] [place] [phone] Phone Care Team Providers Care Solar Energy Technician Name Role Phone Surgery [facility] Unavailable Unava ilable Allergies, Adverse Reactions, Alerts Substance Reaction Status Criticality wheat Active No Information droperidol Anaphylaxis(severe) Active No Infor mation Sulfa (Sulfonamide Antibiotics) Hives / Skin Rash Acti ve No Information Penicillins Hives / Skin Rash Active No Informa tion Procedures Procedure Date Voided Encounter Advance Directives Directive Yes / No Effective Date File Name No Information Encounters Encounter Description Practice Location Reason(s) For Visit Diagnoses Date Provider [facility], [address] [place] [address], [place], [place], [address] [place] [address], tel:[phone] [facility] battery replacement (chief complaint) No Information 2010 Surgery [facility]. [address] [place] [address], [id number], . tel:[phone] [facility], [address] [place] [address], [place], [place], [id number], tel:[phone] [facility] Classical migraine without mention of intractable migraine 2007 Vidya Thompson. [address] [place] [address], [place], [place], [id number], . tel:[phone] Family History Family Member Type Diagnosis Age At Onset No Information Payers Payer name Insurance type Covered green party ID Authoriza tion(s) Medicare MB [id number] Social History Type Description Quantity Date Captured Comments Sex Female Smoking Status No Information Chief Complaint And Reason For Visit From encounter dated '10/01/2010 09:30'. battery replacement (chief complaint) History Of Present Illness Encounter Date Complaint History Of Prese nt Illness No Information Instructions Date Instruction Additional Infor mation No Information Assessments Type Assessment Date No Information
--- OUTSIDE RECORDS SUMMARY | 2023-10-26 08:30 | XMS_ITS ---
Author Organization [facility] Address [address] [place] [address] Care Team Providers Care Parking Lot Supervisor Name Role Phone Edie Bee Primary Care Provider Dennis Gómez Unavailable [phone] Medications Medication SIG (Take, Route, Frequency, Duration) Notes Start Date End Date Status Qulipta 60 MG 1 tablet Orally Once a day; Duration: 30 days severe nausea 09/29/2023 10/01/2023 Active Ambien 5 MG 1 tablet at bedtime Orally Once a day 12/16/2021 Active MAGNESIUM 400 MG CAPS 0 1 qam; Duration: 30 *please review for potential _update for e-prescription and drug interaction check* 03/04/2018 Active lamoTRIgine 200 MG 1 tablet Orally Once a day 09/29/2023 Active MULTIVITAMINS TABLET 0; Duration: 30 *please rev iew for potential _update for e-prescription and drug interaction check* 12/22/2010 Active Levoxyl 100 MCG 0 Oral 1 qam; Duration: 30 incr 06/28/2014 Active Lyrica 75 MG 1 capsule Orally every 8 hours; Duration: 30 days Active clonazePAM 1 MG 1 tablet Orally tid Active Ondansetron 8 MG 1 tablet on the tongue and allow to dissolve as needed Orally Once a day Active Spironolactone 50 MG 2 tablet Orally Once a day Active amLODIPine Besylate 5 MG 1 tablet Orally Once a day Active Fluticasone Propionate 50 MCG/ACT 1 spray in each nostril Nasally Once a day Active Ipratropium [place] 0.03 % as directed Inhalation Twice a day Active DuoNeb Active Encounters Encounter Location Date Provider Diagnosis [facility] [address] [place] [address] 10/26/2023 Dennis Lubin Chronic migraine without aura, intractable, with status migrainosus G43.711 Assessments Encounter Date Diagnosis (ICD Code) Assessment Notes Treatment Notes Treatment Clinical Notes Section Notes 10/26/2023 Chronic migraine without aura, intractable, with status migrainosus (ICD-10 - G43.711) Plan Of Treatment No Information Progress Notes * Lise POLLARD VDOB:1970 (54 yo F)Acc No.[id number]:10/26/2023 Patient: Niyah HAILEANIBALLise Kolby Provider: Starla Lubin MD :1970 A ge:52 Y S ex:Female Date:10/26/2023 Address:[address] [place], [place] [id number] Pcp:Edie Bee Subjective: * Chief Complaints: * * Medical History: * Medications: T aking lamoTRIgine 200 MG Tablet 1 tablet Orally Once a day , Taking Ambien 5 MG Tablet 1 tablet at bedtime Orally Once a day , Taking amLODIPine Besylate 5 MG Tablet 1 tablet Orally Once a day , Taking Spironolactone 50 MG Tablet 2 tablet Orally Once a day , Taking Ipratropium [place] 0.03 % Solution as directed Inhalation Twice a day , Taking Fluticasone Propionate 50 MCG/ACT Suspension 1 spray in each nostril Nasally Once a day , Taking DuoNeb , Taking Ondansetron 8 MG Tablet Disintegrating 1 tablet on the tongue and allow to dissolve as needed Orally Once a day , Taking clonazePAM 1 MG Tablet 1 tablet Orally tid , Taking Levoxyl 100 MCG Tablet 0 Oral 1 qam , Notes to Pharmacist: incr, Taking MULTIVITAMINS TABLET 0 , Notes to Pharmacist: *please review for potential _update for e-prescription and drug interaction check*, Taking Lyrica 75 MG Capsule 1 capsule Orally every 8 hours , Taking MAGNESIUM 400 MG CAPS 0 1 qam , Notes to Pharmacist: *please review for potential _update for e-prescription and drug interaction check*, Taking Qulipta 60 MG Tablet 1 tablet Orally Once a day , stop date 10/01/2023, Notes to Pharmacist: severe nausea, Discontinued DULoxetine HCl 60 MG Capsule Delayed Release Particles 2 capsule Orally Once a day , stop date 10/05/2023, Notes to Pharmacist: confused, Medication List reviewed and reconciled with the patient Objective: * Vitals: Assessment: * Assessment: 1. C hronic migraine without aura, intractable, with status migrainosus - G43.711 (Primary)? Plan: * Treatment: * Billing Information: * Visit Code: 66267 OFFICE VISIT,EST PT,LEVEL 4. Modifiers: 95 * Procedure Codes: * [place], [id number] on 02/04/2025 at 09:43 AM EST Sign off status: Pending * Provider: Starla Lubin MD Date: 0 10/26/2023 Generated for Vincent damon/Roderick/Justin on: 1 04/06/2024 09:43 AM EST
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
--- OUTSIDE RECORDS SUMMARY | 2025-02-01 10:00 | XMS_ITS ---
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 Not-TakingLoperamide HCl 2 MG Tablet 1 tablet as needed Orally Four times a day Medication List reviewed and reconciled with the patientNot-Taking Loperamide HCl 2 MG Tablet 1 tablet as needed Orally Four times a day Medication List reviewed and reconciled with the patient * Allergies: S ulfa: hivesPenicillin: hivesDroperidol: anaphylaxisTreenuts - Onset Date 01/01/2020Butrans: rash - Side EffectsKeflex: rash Objective: * Vitals: T emp:98.6F, HR:84/min, BP:127/87mm Hg, RR:16/min, Oxygen sat %:98%, Pain scale:80-10, Wt:164.6lbs, Wt-k.66 kg, Ht: 57.01 in, Ht-cm: 144.8 cm, BMI:35.6Index. * Examination: O ld-General Examination: GENERAL APPEARANCE: w ell-appearing, alert, pleasant, in no acute distress, hoarse and deeper voice than baseline. HEAD: n ormocephalic, atraumatic. EYES: e xtraocular movement full and smooth, conjunctiva clear, no scleral icterus/injection. ORAL CAVITY: m mm. SKIN: n o rashes, no suspicious lesions, warm and dry. HEART: r egular rate, S1 and S2 normal, no murmurs, rubs, gallops, no peripheral edema. LUNGS: c lear to auscultation bilaterally, no wheezes, rales, rhonchi, no accessory muscle use, no respiratory distress. BACK: h yperesthesia/severe ttp right paraspinous back from approx [id number] with midline ttp in the same region without focality, more pain with left leg raise, no apparent spasm, +scoliosis. EXTREMITIES: n o clubbing, cyanosis, or edema. NEUROLOGIC: a lert and oriented, cognitive exam grossly normal, noted to have less abnormal seemingly involuntary movements of lips/tongue. PSYCH: c ooperative with interview/exam, good eye contact, judgement and insight fair, mood/affect full range, thought content clear. Assessment: * Assessment: 1. O bstructive sleep apnea (adult) (pediatric) - G47.33 2 . E ssential (primary) hypertension - I10 (Primary) 3 . L ow back pain, unspecified - M54.50? 4. S coliosis, unspecified - M41.9 5 . D ysphonia - R49.0 6 . N eed for assistance with personal care - Z74.1 7 . D eficiency of other specified B group vitamins - E53.8 8 . I kike deficiency - E61.1? Plan: * Treatment: 2. O bstructive sleep apnea (adult) (pediatric) Notes: - Reviewed importance of treating this condition and likely contribution to particularly diastolic hypertension- Awaiting delivery of CPAP ordered by sleep medicine 3. L ow back pain, unspecified Start oxyCODONE HCl Tablet, 5 MG, 1 tablet as needed for severe pain, Orally, twice a day, 7 days, 14 Tablet, Refills 0, Notes to Pharmacist: Partial Fill upon Patient Request. Notes: - Acute pain in the setting of some chronic pain secondary to associated M41.9 Scoliosis- We discussed that resuming long-acting pain medication permanently seems unreasonable given acuity of pain and our agreement that this is hopefully a short term concern- We discussed other medication management options- For now, I have agreed to a trial of low-dose oxycodone as needed for a few days during acute back pain and she expresses understanding that this will not be a long-term prescription; she has tolerated this in the past without difficulty following surgical procedures and other interventions and has not had problems with addiction -She requests referral back to aqua therapy which has been helpful in the past, but understands that there is a significant wait list for these services 4. D ysphonia Notes: - Undergoing evaluation with speech-language pathology and had a recent fees study, participating in speech therapy 5. 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 D eficiency of other specified B group vitamins Notes: - Associated diagnoses E61.1 Iron deficiency- Has been taking supplements for over 6 weeks, plan to repeat labs at follow-up visit 7. O thers Referral To:Physical Therapy Reason:Physical Therapy/Aquatherapy referral * Procedure Codes: 1 159F Medication list documented in medical [id number] Review of all medications by a prescribing practitioner or clinical pharmacist documented in the medical record * Preventive Medicine: I nfluenza vaccination: 05/15/23, 12/21/23, 12/20/24 TD/Tdap vaccination: 08/16/20 MMR titer/ vaccination: positive titer 2015 PCV 13 vaccination: PCV20 04/24/22 PPSV 23 vaccination: 2016 Herpes Zoster vaccination: shingrix dose #1 03/06/22 at pharmacy, dose #2 06/05/23 in office HPV vaccination: not indicated Hepatitis B titer/vaccination: positive titer 2016 Hepatitis C screening: negative 2016 HIV screenin12/27/20 Cervical Cancer screenin12/22/14, 12/21/23 negative pap and negative HPV, repeat 5 years Syphilis screenin11/19/24 Gonorrhea/Chlamydia screening: TB screening: quantiferon TB gold negative 12/27/20 Breast Cancer screening: mammogram normal 11/25/22, ordered 09/2023, 11/2023- patient reports she has appt, ordered 09/2024 Colorectal Cancer screening: colonoscopy 03/09/15 1cm rectal polyp; 08/13/[address] Gonzalez, 08/05/21 normal, repeat 10 years;09/2023-per [facility] Colorectal patient will need flexible sigmoidoscopy for screening purposes in 2026 Osteoporosis screening: AAA screening: N/A Lung cancer screening: non-smoker Oral Health visit: 2020 Diabetes screenin11/19/24 5.0% Lipid screenin04/19/2021: Tchol 236, LDL 121, HDL 70, trig 223, 11/19/24 TC 196, TG 215, HDL 38, LDL 115 MOLST discussed: in chart, 2018- Full Code Health care proxy discussed: in chart, 2018; discussed 05/30/2021. * Follow Up: 2 Weeks (Reason: HTN,acute pain) Care Plan: * Problems: * * Sign off status: Completed true * Provider: Reji Bee MD Date: 04/03/2024 Generated for Vincent damon/Roderick/Retaitting on: 04/06/2024 09:44 AM EST History and Physical Notes * Examination Category Sub-Category Detail Notes Category Not es Old-General Examination GENERAL APPEARANCE: well -appearing, alert, pleasant, in no acute distress, hoarse and deeper voice than baseline HEAD: normocephalic, atrau matic EYES: extraocular movement full and smooth, conjunctiva clear, no scleral icterus/injection HEART: regular rate, S1 and S2 normal, no murmurs, rubs, gallops, no peripheral edema LUNGS: clear to auscultatio n bilaterally, no wheezes, rales, rhonchi, no accessory muscle use, no respiratory distress NEUROLOGIC: alert and oriented, cognitive exam grossly normal, noted to have less abnormal seemingly involuntary movements of lips/tongue SKIN: no rashes, no suspic ious lesions, warm and dry EXTREMITIES: no clubbing, cyanosi s, or edema BACK: hyperesthesia/severe ttp right paraspinous back from approx [id number] with midline ttp in the same region without focality, more pain with left leg raise, no apparent spasm, +scoliosis PSYCH: cooperative with int erview/exam, good eye contact, judgement and insight fair, mood/affect full range, thought content clear ORAL CAVITY: mmm Consultation Request Notes Referral Date Referring Provider Referred Provider Not es 02/01/2025 Edie Bee , Physical Therapy/Aquatherapy referral
--- NOTE | ~2025-02-04 | CT_ITS ---
CLINICAL HISTORY: severe lower back pain CT lumbar spine without contrast Comparison: None provided Findings: There is mild levoconvex scoliosis of the lumbar spine centered about L1-L2. No acute fractures or dislocations. Mild degenerative changes are demonstrated throughout the lumbar spine with facet arthropathy and mild intervertebral disc height loss. Visualized abdominal contents are notable for large stool burden within the rectum. IMPRESSION: No acute lumbar spine findings. Mild degenerative changes of the lumbar spine. Large stool burden within the visualized rectum. This document has been electronically signed by: Terry Ortega MD on 02/04/2025 12:14:30
[2025-02-04 08:47] VITALS: BP 111/68; PULSE 87; RESP 16; TEMP 37; O2SAT 96; BMI 37.7
[2025-02-04 09:35] VITALS: BP 111/71; PULSE 81; RESP 18; TEMP 36.8; O2SAT 95
--- OUTSIDE RECORDS SUMMARY | 2025-02-04 09:43 | XMS_ITS | Patient Health Record ---
Author Organization [facility] Address [address] [place] [address] Care Team Providers Care Woods Rider Name Role Phone Edie Bee Primary Care Provider Dennis Gómez Unavailable [phone] Allergies Allergen (clinical drug ingredient) Drug/Non Drug [...] nostril Nasally Once a day Active Ipratropium [place] 0.03 % as directed Inhalation Twice a [...] Risk Notes Problem Refractory migraine with aura (672154314) Migraine with aura, intractable, with status migrainosus (G43.111) Active confirmed Problem Chronic intractable migraine without aura (414800815146767) Chronic migraine without aura, intractable, with status migrainosus (G43.711) Active confirmed Problem Chronic post-traumatic headache (836353765) Chronic post-traumatic headache, intractable (G44.321) Active confirmed Problem Paresis of accommodation (28116542) Paresis of accommodation, 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) Active confirmed Problem Chronic peripheral venous hypertension (disorder) (582046780) Chronic venous hypertension (idiopathic) without complications of unspecified lower extremity (I87.309) Active confirmed Problem Weakness (47314408) Weakness (R53.1) Active confirmed Plan Of Treatment Pending Test Test Name Order Date Amylase, Serum 07/16/2022 Lipase, Serum 07/16/2022 CBC With Differential/Platelet 3 Electrolyte Panel 07/16/2022 Hepatic Function Panel (7) 07/16/2022 Insurance Providers Payer Name Payer Address Payer Phone Subscriber Number Group Number Insured Name Patient Relationship to Insured Coverage Start Date Coverage End Date [facility] [address] [address] [place], [place] [id number] Lise Medrano Self - patient is the insured Medical (General) History Medical History History ICD Code Chronic back pain with lumbar radiculopa thy Bilateral hip bursitis TBI in 2016 Increased Intracranial Hypertension Migraines Depression PTSD Ulcerative colitis Celiac disease Asthma COPD Low potassium Surgical History Surgery Date(Month/Year) Tonsillectomy and adenoidectomy Cholecystectomy 2001 Left elbow surgery
--- OUTSIDE RECORDS SUMMARY | 2025-02-04 09:44 | XMS_ITS | Encounter Summary ---
Author Organization [facility] Address [address] [place] [address] Care Team Providers Care Vertica Architect Name Role Phone Nasima Narayan Primary Care Provider Encounter Details Date Type Department Care Team (Late st Contact Info) Description 06/25/2020 myChart Message [facility] [address] [place] [address] Art Newby MD [address] [place] [address] [place] [address] Non-Urgent Medical Question Social History [...] on filedocumented in this encounter Care Teams Vertica Architect Relationship Specialty Start Date End Date Nasima Narayan [address] [place] [address] PCP - General Internal Medicine 07/04/21 documented as of this encounter
--- OUTSIDE RECORDS SUMMARY | 2025-02-04 09:44 | XMS_ITS | Encounter Summary ---
Author Organization [facility] Address [address] [facility] [address] [place] [address] Phone Care Team Providers Care Apartment Leasing Consultant Name Role Phone Wyatt Frazier MD Primary Care Provider [phone] Dewayne Hercules MD Primary Care Provider [phone] Pcp, Unknown Primary Care Provider Edie Crawley MD Primary Care Pro vider Encounter Details Date Type Department Care Team (Late st Contact Info) Description 06/04/2016 Ancillary Orders [facility] Diagnostic Radiology- [address] [address] Wyatt Frazier MD [address] [place] [id number] [email or web address] Headaches due to old head [...] trauma documented in this encounter Care Teams Apartment Leasing Consultant Relationship Specialty Start Date End Date Wyatt Frazier MD PCP - General Neurosurgery 06/04/16 07/30/17 Dewayne Hercules MD [address] [place] [address], [address] [place] [address] PCP - General Internal Medicine 07/31/17 01/03/19 Pcp, Unknown PCP - General 01/04/19 01/26/22 Edie Bee MD PCP - General Internal Medicine 01/27/22 documented as of this encounter Additional Source Comments The information contained in this document represents components of the legal health record. It is not the complete legal health record.[facility]
--- OUTSIDE RECORDS SUMMARY | 2025-02-04 09:44 | XMS_ITS | Encounter Summary ---
Author Organization [facility] Address [address] [facility] [address] [place] [address] Phone Care Team Providers Care Electrophysiology Technologist Name Role Phone Dewayne Hercules MD Primary Care Provider [phone] Pcp, Unknown Primary Care Provider Edie Crawley MD Primary Care Pro vider Encounter Details Date Type Department Care Team (Late st Contact Info) Description 05/19/2018 Procedure Pass [facility] PeriOp [address] [place] [address] Social History Tobacco Use Types Packs/Day Years [...] on filedocumented in this encounter Care Teams Electrophysiology Technologist Relationship Specialty Start Date End Date Dewayne Hercules MD [address] [facility], [address] [place] [address] PCP - General Internal Medicine 07/31/17 01/03/19 Pcp, Unknown PCP - General 01/04/19 01/26/22 Edie Bee MD PCP - General Internal Medicine 01/27/22 documented as of this encounter Additional Source Comments The information contained in this document represents components of the legal health record. It is not the complete legal health record.[facility]
--- OUTSIDE RECORDS SUMMARY | 2025-02-04 09:44 | XMS_ITS | Clinical Summary ---
Author Organization [facility] Address [address] [place] [address] Care Team Providers Care Glass Robot Operator Name Role Phone Nasima Narayan Primary Care Provider [phone] Allergies Active Allergy Reactions Criticality Noted Date [...] Screening Completed 01/18/2020 Procedures * Due to [place] state law, this organization might not be sharing negative HIV tests. Procedure Name Priority Date/Time Associated Diagnosis Comments HEPATITIS C ANTIBODY W/REFLEX TO HCV RNA, QUANTITATIVE PCR Routine 01/18/2020 2:56 AM EDT from Last 3 Months or Most Recently Relevant to Health Maintenance Results * Due to [place] [employer] law, this organization might not be sharing negative HIV tests. * Hepatitis C Antibody w/Reflex to HCV RNA, Quantitative PCR (01/18/2020 2:56 AM EDT) Hepatitis C Antibody NON-REACT GREGORY NON-REACT GREGORY 01/18/2020 1:18 PM EDT [employer] Signal To Cut-Off 0.01 <1.00 01/18/2020 1:18 PM EDT [employer] Comment: HCV antibody was non-reactive. There is no laboratory evidence of HCV infection. In most cases, no further action is required. However, if recent HCV exposure is suspected, a test for HCV RNA (test code 33303) is suggested. For additional information please refer to http://education.BestBoy Keyboard/faq/SUO54h9 (This link is being provided for informational/ educational purposes only.) Blood Structure of peripheral vein / Unknown Venipuncture / Unknown 01/18/2020 2:56 AM EDT 01/18/2020 3:26 AM EDT Narrative [facility] - 01/18/2020 1:18 PM EDT [facility] Received Date: Tee Conn MD LAB BLOOD ORDERABLES Final Resu lt [facility] [address] [facility] [address]rd [address], [place] [address], [place] [phone] Twenty Jeans [facility] [address] [facility] [address], [place] [address], [place] [phone] from Last 3 Months or Most Recently Relevant to Health Maintenance [place] [id number] [facility] Advance Directives Documents on File Type Date Recorded Patient Anime Artist Expl anation Health Care Proxy 01/17/2020 3:36 PM 09/2019 * Presumed Full Code (Latest Code Status on File) Date Activated Date Inactivated Comments 07/05/2021 12:20 AM 07/05/2021 2:07 PM * Presumed Full Code Date Activated Date Inactivated Comments 01/16/2020 3:38 PM 01/20/2020 7:27 PM Healthcare Agents on File Name Relationship Healthcare Agent Relationshi p Communication Chuck Higgins Health Care Agent Care Teams Glass Robot Operator Relationship Specialty Start Date End Date Nasima Narayan [address] [place] [address] PCP - General Internal Medicine 07/04/21
--- OUTSIDE RECORDS SUMMARY | 2025-02-04 09:44 | XMS_ITS | Encounter Summary ---
Author Organization [facility] Address [address] [place] [address] Care Team Providers Care Strap Stitcher Name Role Phone Nasima Narayan Primary Care Provider [phone] Encounter Details Date Type Department Care Team (Late st Contact Info) Description 01/18/2020 Community Orders [facility] EpicCare Link [address] [place] [address] Dennis Lubin MD [address] [place] [address] Social History Tobacco Use Types Packs/Day Years [...] documented as of this encounter Care Teams Strap Stitcher Relationship Specialty Start Date End Date Nasima Narayan [address] [place] [address] PCP - General Internal Medicine 07/04/21 documented as of this encounter
--- OUTSIDE RECORDS SUMMARY | 2025-02-04 09:44 | XMS_ITS | Encounter Summary ---
Author Organization [facility] Address [address] [place] [address] Care Team Providers Care Animation Camera Operator Name Role Phone Nasima Narayan Primary Care Provider Encounter Details Date Type Department Care Team (Late st Contact Info) Description 02/03/2020 Community Orders [facility] EpicCare Link [address] [place] [address] Dennis Lubin MD [address] [place] [address] Social History Tobacco Use Types Packs/Day Years [...] on filedocumented in this encounter Care Teams Animation Camera Operator Relationship Specialty Start Date End Date SylvainNasima [facility] [address] [address] PCP - General Internal Medicine 07/04/21 documented as of this encounter
--- OUTSIDE RECORDS SUMMARY | 2025-02-04 09:44 | XMS_ITS | Clinical Summary ---
Author Organization [facility], Address [address] [address] Phone Care Team Providers Care Tire Changer Aircraft Name Role Phone Milla Fuchs NP Primary Care Provider [phone] Allergies Active Allergy Reactions Criticality Noted Date [...] Sigmoidoscopy 11/26/2020 Influenza Vaccine (#1) 2024 Insurance [facility] Care Teams Tire Changer Aircraft Relationship Specialty Start Date End Date Milla Fuchs NP [address] [place] [address] PCP - General 01/04/20
--- OUTSIDE RECORDS SUMMARY | 2025-02-04 09:44 | XMS_ITS | Clinical Summary ---
Author Organization [facility] Address [address] [facility] [address] [place] [address] Phone Care Team Providers Care Clipper Counters Name Role Phone Edie Bee MD Primary Care Pro vider Allergies Active Allergy Reactions Criticality Noted Date Comments Droperidol Anaphylaxis High 11/14/2009 Cephalexin Swelling High 05/24/2018 Oxycodone-Acetaminophen 11/14/2009 Pt denies Penicillin Rash Low 11/14/2009 Sulfa (Sulfonamide Antibiotics) Rash Low 10/28 Medications mesalamine (APRISO) 0.375 gram 24 hr capsule APRISO 0.375 GM [id number] 04/11/19 17 Active benzonatate (TESSALON) 100 MG capsule BENZONATATE 100 MG CAPS 12/10/19 17 Active butalbital-acetami nophen-caffeine (FIORICET, ESGIC) 50-325-40 mg per tablet [id number]-A AFFEINE 50-325-40 MG TABS 12/11/19 17 Active [...] this topic Medical Devices Implanted Type Area Solid State Tester Device Identifier Shelf Expiration Date Model / Serial / Lot Spinal Cord Stimulator Insurance MEDICARE PART A & B [facility] ONE CARE MEDICARE REPLACEMENT [place] [id number] MEDICARE PART A & B MEDICARE PART A & B ONE CARE MEDICARE REPLACEMENT MEDICARE PART A & B [facility] ONE CARE MEDICARE REPLACEMENT MEDICARE PART A & B ONE CARE MEDICARE REPLACEMENT MEDICARE PART A & B Member Subscriber Plan / Payer (Ef fective 2017-Present) Name:Lise Grace Member ID:[id number] Relation to Subscriber:Self Name:Lise Grace Subscriber ID:[id number] Payer ID:[id number] Group ID:Not on file Type:Medicare Address: [employer] [address] ONE CARE MEDICARE REPLACEMENT MEDICARE PART A & B ONE CARE MEDICARE REPLACEMENT MEDICARE PART A & B ONE CARE MEDICARE REPLACEMENT [facility] MEDICARE PART A & B Member Subscriber Plan / Payer ( fective 2017-Present) Name:Lise Grace Member ID:[id number] Relation to Subscriber:Self Name:Lise Grace Subscriber ID:[id number] Payer ID:[id number] Group ID:Not on file Type:Medicare Address: [email or web address] [address] ONE CARE MEDICARE REPLACEMENT MEDICARE PART A & B [facility] ONE CARE MEDICARE REPLACEMENT [address] [place] [address] [address] [place] [address] Care Teams Clipper Counters Relationship Specialty Start Date End Date Edie Bee MD PCP - General Internal Medicine 01/27/22 Additional Source Comments The information contained in this document represents components of the legal health record. It is not the complete legal health record.[facility]
--- OUTSIDE RECORDS SUMMARY | 2025-02-04 09:44 | XMS_ITS | Encounter Summary ---
Author Organization [facility] Address [address] [facility] [address] [place] [address] Phone Care Team Providers Care Volunteer Services Manager Name Role Phone Edie Bee MD Primary Care Pro vider Encounter Details Date Type Department Care Team (Late st Contact Info) Description 01/28/2022 Procedure Pass [facility], Ct Scan - [facility] [address] [place] [address] Social History Tobacco Use Types Packs/Day Years [...] documented as of this encounter Care Teams Volunteer Services Manager Relationship Specialty Start Date End Date Edie Bee MD PCP - General Internal Medicine 01/27/22 documented as of this encounter Additional Source Comments The information contained in this document represents components of the legal health record. It is not the complete legal health record.[facility]
--- OUTSIDE RECORDS SUMMARY | 2025-02-04 09:44 | XMS_ITS | Clinical Summary ---
Author Organization [address] [place] [address] Address [address] [place] [address] Phone Care Team Providers Care Trim Die Maker Name Role Phone Rama Rodriguez GRETTA Primary Care Provider [phone] Social History Tobacco Use Types Packs/Day Years [...] patient's age to complete this topic Insurance [facility] Member Subscriber Plan / Payer (Ef fective 2018-Present) Name:TOMA POLLARD Relation to Subscriber:Spouse Name:TOMA POLLARD Date of :1971 (Home) Address: [address] [place] [address] Payer ID:[id number] Group ID:[id number] Type:Not on file Address: [address] [place] [id number] Care Teams Trim Die Maker Relationship Specialty Start Date End Date Rama Rodriguez FNP PCP - General Nurse Practitioner 07/04/24
--- OUTSIDE RECORDS SUMMARY | 2025-02-04 09:45 | XMS_ITS | Patient Health Record ---
Author Organization [facility] liance Address [address] [place] [address] Care Team Providers Care Weigher Operator Name Role Phone Edie Bee Primary Care Provider Rama Aviles Unavailable [phone] Clinical, Operations Unavailable Unavailable Sophia Smallwood Unavailable [phone] Rosa Verde Unavailable [phone] Dr. Edie Bee Unavailable [phone] Amy Olivarez Unavailable [phone] Allergies Allergen (clinical drug ingredient) Drug/Non Drug Allergy documented on EMR Reaction Allergy Type Onset Date Status droperidol Droperidol (uncoded) anaphylaxis Allergy Active Treenuts (uncoded) Unknown Allergy 01/01/2020 Active Keflex rash Drug Allergy Active buprenorphine Butrans rash Drug Allergy Act adonay Sulfa hives Drug Allergy Active Penicillin hives Drug Allergy Active Results Component Value Reference Range Notes CBC With Differential/Platel et-[id number] Reviewed date:12/28/2024 07:45:35 AM Interpretation:Hgb 11.2, Hct 36.1 Performing Lab:[facility], [address] [place] [address], [place], Phone - [phone], Director - Zainab Notes/Report: WBC 6.1 3.4-10.8 [...] % Immature Grans (Abs) 0.0 0.0-0.1 x10E3/uL Hemoglobin [id number]-[id number] Reviewed date:12/06/2024 10:29:35 AM Interpretation:5.0% Performing Lab: Notes/Report: 5.0% Hemoglobin A1c 5.0% C-Reactive Protein, Quant-00 6627 Reviewed date:12/28/2024 03:12:24 PM Interpretation:9 Performing Lab:[facility], [address] [facility], Phone - [phone], Director - Zainab Notes/Report: C-Reactive Protein, Quant 9 0-10 mg/L Lipid Panel-[id number] Reviewed date:12/06/2024 10:29:29 AM Interpretation:TC 196 Trig 215 HDL 38 LDL 115 Performing Lab: Notes/Report: TC 196 Trig 215 HDL 38 LDL 115 Cholesterol, Total 196 Triglycerides 215 HDL Cholesterol 38 LDL Chol Calc (NIH) 115 Sedimentation Rate-Westergre n-607057 Reviewed date:12/28/2024 08:28:22 AM Interpretation:39 Performing Lab:[facility], [address] [facility], Phone - [phone], Director - Zainab Notes/Report: Sedimentation Rate-Westergren 39 0-40 mm/hr TSH Rfx on Abnormal to Free [id number] Reviewed date:11/04/2024 08:49:18 AM Interpretation:1.62 Performing Lab:[facility] [place], [address] [facility], Phone - [phone], Director - Zainab Notes/Report: TSH 1.620 0.450-4.500 uIU/mL Comp. Metabolic Panel (14)-3 Reviewed date:12/28/2024 06:34:33 PM Interpretation:Normal Performing Lab:[facility] [place], [address] [facility], Phone - [phone], Director - [facility] Notes/Report: Glucose 98 70-99 mg/dL BUN 16 [...] 0-40 IU/L ALT (SGPT) 15 0-32 IU/L Comp. Metabolic Panel (14)- Reviewed date:11/04/2024 08:46:56 AM Interpretation:Cr 1.02, BUN 24 Performing Lab:[facility], [address] [facility], Phone - [phone], Director - Zainab Notes/Report: Glucose 87 70-99 mg/dL BUN 24 [...] 0-40 IU/L ALT (SGPT) 17 0-32 IU/L Uric Acid-[id number] Reviewed date:12/28/2024 04:18:31 PM Interpretation:5.3 Performing Lab:[facility] [place], [address] [facility], Phone - [phone], Director - Zainab Notes/Report: Uric Acid 5.3 3.0-7.2 mg/dL Therapeutic ta rget for gout patients: <6.0 Syphilis Treponemal Antibodi es, Treponema pallidum Particle Agglutination (TPPA) - [id number] Reviewed date:12/06/2024 10:29:24 AM Interpretation:Non-Reactive Performing Lab: Notes/Report: Non-Reactive Treponemal Antibodies, TPPA Non-reactive Vitamin D, 97-Kpbuuze-[id number] Reviewed date:11/04/2024 07:29:34 AM Interpretation:36.1 Performing Lab:[facility] [place], [address] [facility], [place], Phone - [phone], Director - Angeliay Notes/Report: Vitamin D, 25-Hydroxy 36.1 30.0-100.0 ng/mL Vitamin D deficiency has been defined by the [place] of Medicine and an Endocrine Society practice guideline as a level of serum 25-OH vitamin D less than 20 ng/mL (1,2). The Endocrine Society went on to further define vitamin D insufficiency as a level between 21 and 29 ng/mL (2). 1. IOM ([place] of Medicine). 2010. Dietary reference intakes for calcium and D. [place]: The National Academies Press. 2. Catherine MF, Miguelito [place], Fina TOLEDO, et al. Evaluation, treatment, and prevention of vitamin D deficiency: an Endocrine Society clinical practice guideline. JCEM. 2010; 96(7):1911-30. Reason For Referral Reason [facility] [place] [facility] (booked) Diagnosis 1 Fibromyalgia (M79.7) Diagnosis 2 Low back pain, unspe cified (M54.50) Referral Organization [facility] Referring Provider First Name Rama Referring Provider Last Name Michael Referring Provider Speciality Nurse Prac titioner Family Referred Provider [facility] Referred Provider Specialty Physical The rapy General Notes Gloria Landaverde 03/31 10:07:20 AM > Please refer to [facility] rehab in [place] for PT, thank you!, Sophia Caro 04/22/2024 10:59:23 AM > Forwarding to Estefany Rubin , [address] [place], [place] [id number] , Estefany Rubin 04/22/2024 02:46:37 PM > faxed [phone] & [phone], Estefany Rubin 04/26/2024 11:48:57 AM > [facility] called and spoke with Elle and she provided a new fax # [phone], Estefany Rubin 04/26/2024 11:52:31 AM > Elle from [facility] stated that a Saeed PT appt for left sided weakness, was booked today @11:47am. Provider: Promise Thakkar, PT , Appt: Thursday @9:15am (arrive 15 mins early for paperwork), Location: [address] [place] [address], Floor [address] [place] [address], sEtefany Rubin 04/26/2024 12:05:27 PM >[facility] attempted to call pt (x2), pt answered while on another call and could not communicate, Estefany Rubin 04/26/2024 01:34:19 PM > [facility] called to inform pt of [...] treatment measures and assessment Referral Priority Routine Reason Barium Swallow Diagnosis 1 Pharyngeal dysphagia (R13.13) Referral Organization [facility] Care [facility] Referring Provider First Name Edie Referring Provider Last Name Cristal Referring Provider Speciality Internal M edicine Referred Provider [facility] ter (Facility) Referred Provider Specialty Radiology General Notes Edie Bee 04/28/2024 05:09:18 PM > Please assist with scheduling barium swallow, Sophia Caro 04/29/2024 08:11:19 AM > forwarding to Rachel Ricks Miranda 04/29/2024 01:22:14 PM >Called [phone] and spoke to Thompson and he advised booked pt for 05/16/24 @ 09:45 AM [facility] [facility] no eatin ng or drinking 2 hours before faxed rto [phone] , America Ramos 04/29/2024 03:20:01 PM >Called [phone] and spoke to pt and advised of [...] Diagnosis 1 Pharyngeal dysphagia (R13.13) Referral Organization [facility] Referring Provider First Name Edie Referring Provider Last Name Cristal Referring Provider Speciality Internal M edicine Referred Provider [facility] Gastro[facility] ology Referred Provider Specialty Gastroentero logy General Notes Edie Bee 04/28/2024 05:11:18 PM > Please assist with GI referral, established patient with new issue, Sophia Caro 04/29/2024 08:10:34 AM > forwarding to Scottie Phan Bianca 04/29/2024 08:59:27 AM > Location: [address], [address], [place] [address] Alternative fax #: [phone], Estefany Rubin 04/29/2024 09:01:45 AM > Scottie lazo Bianca 04/29/2024 01:11:18 PM > [facility] called and spoke with Anastacia , Appt scheduled for Anastacio. August 18 @10:30am with Scottie Benavides Bianca [...] 04/29) Diagnosis 1 Macromastia (N62) Referral Organization [facility] Primary Care [facility] Referring Provider First Name Edie Referring Provider Last Name Cristal Referring Provider Speciality Internal M edicine Referred Provider [facility] Plastic Peter tea General Notes Edie Bee 04/28/2024 05:12:57 PM > Please assist with plastic surgery referral, Sophia Caro 04/29/2024 08:10:54 AM > forwarding to Scottie Phan Bianca 04/29/2024 11:08:17 AM > [facility] - [place]: [address] [facility], (Floor 3) [place] [address], Phone#: [phone] Fax #: [phone] Bianca 04/29/2024 01:23:39 PM > [facility] called and spoke with Trenton, she provided an new fax #: [phone] , Trenton stated it takes up to 72 hrs for faxes to be processed, csc will f/u next week., Estefany Rubin 04/29/2024 01:28:44 PM > refaxed [phone] Bianca 05/02/2024 01:21:35 PM > [facility] called and spoke with Theodore, [...] has tried other avenues that were unsuccessful). [facility] fwd to APC.Evin Christina 05/02/2024 03:51:39 PM > OK to hold for Rama.Michael Rama 05/03/2024 08:04:41 AM > I had referred her to PT on 04/22/24- please let her know that she needs to do this before we can proceed with referral since [facility] is requesting documentation that other treatment is not successful, she will also have to meet the BMI requirement before we can refer, Estefany Rubin 05/03/2024 10:30:07 AM > [facility] outreached to pt and relayed the information. [facility] reminded patient of her PT [...] for breast reduction Referral Priority Routine Reason Nutrition referral Diagnosis 1 Obesity, class 2 (E6 6.812) Diagnosis 2 Morbid (severe) obes ity due to excess calories (E66.01) Diagnosis 3 S/P colectomy (Z90.4 9) Diagnosis 4 Intestinal anastomos is present (Z98.0) Diagnosis 5 Celiac disease (K90. 0) Referral Organization [facility] Referring Provider First Name Edie Referring Provider Last Name Cristal Referring Provider Speciality Internal M edicine Referred Provider Sophia [place] General Notes CristalAnikaEdie M 06/07/2024 10:07:24 AM > Please assist with referral to sonogram technicianVania Jennifer 06/07/2024 10:10:12 AM > referral faxedVania Jennifer 06/07/2024 02:59:26 PM > . Left msg to see if request was received, Bianca Galaviz 06/07/2024 03:22:17 PM >Artist Scientific Sophia returned call from Pod Lead Sophia to advise referral was received and she will contact patient., Sophia Caro 06/07/2024 03:40:18 PM > noted. Thank you! Closing Referral Clinical Notes TaylorAnika musasara Segovia 06/07/2024 10:08:08 AM > 53 year old [...] and s/p colectomy. Referral Priority Routine Reason 2nd opinion for [place] ia management Diagnosis 1 Ventral incisional h ernia (K43.2) Referral Organization [facility] Referring Provider First Name Rama Referring Provider Last Name Michael Referring Provider Speciality Nurse Jim hodgesr Family Referred Provider [facility] General Notes Eva Kiara 06/10/19 01:20:36 PM > Pt requested second opinion for mgmt of her hernia.Vania Jennifer 06/09/2024 01:39:26 PM > referral faxedVania Jennifer 06/10/2024 12:05:32 PM > phone [phone]. Called to f/u. Office closed for lunch. [...] into a TE for provider. Clinical Notes Eva Kiara 06/10/19 01:20:37 PM > Clinicals attached. Referral Priority Routine Reason Neurology referral Diagnosis 1 Intractable chronic migraine without aura and with status migrainosus (G43.711) Referral Organization [facility] - [place] Referring Provider First Name Rama Referring Provider Last Name Michael Referring Provider Speciality Nurse Prac manny Family Referred Provider [facility] Referred Provider Specialty Neurology General Notes Rama Rodriguez 06/30/19 05:18:01 PM > Please refer patient to [facility] [address] [place] [address], [address], [place] [address] , , Sophia Caro 06/30/2024 11:50:47 AM >, [facility] . Referral faxed, Sophia Caro 07/01/2024 01:33:06 PM > called and left msg to f/u on referral status, Sophia Caro 07/04/2024 11:38:40 AM > Received update from [facility]. They are only accepting new patients for Parkinsons, tremors, TICS and dystonia. They are not accepting for any other diagnosis at this time due to they dont have adequate providers. Is there some other facility that she would refer to?, Rama Rodriguez 07/04/2024 11:47:52 AM > We could see if neurology at [facility] could see her for this, Sophia Caro 07/04/2024 01:14:07 PM > [facility] - fax number [phone]. Referral faxed, Sophia Caro 07/06/2024 09:35:57 AM > called to f/u & spoke to Cecilia. Referral received -& they will be contacting patient to schedule Closing referral Clinical Notes Rama Rodriguez 06/30/19 05:18:34 PM > 53 yo woman with chronic migraines, recently admitted to [facility] with intractable headache, requests neurology consult. Referral Priority Routine Reason mammogram Diagnosis 1 Encounter for screen ing mammogram for malignant neoplasm of breast (Z12.31) Referral Organization [facility] Primary Care - [place] Referring Provider First Name Edie Referring Provider Last Name Cristal Referring Provider Speciality Internal M edicine Referred Provider [facility] Breast [facility] Referred Provider Specialty Mammography Screening Center General Notes Edie Bee 10/13/2024 05:19:30 PM > Please assist with scheduling mammogram, Sophia Caro 10/14/2024 07:48:28 AM > forwarding to Scottie Phan Bianca 10/14/2024 08:57:15 AM >[facility] Radiology scheduling : [phone] phone [facility] All Radiology orders to be faxed to [phone] Bianca 10/14/2024 11:33:52 AM > [facility] called [facility] [phone], spoke with Bethanie, Appt: Dec.28 @ 9am2024 , Address: [address] [place], [place] [address]and[facility] 10/14/2024 11:43:17 AM > [facility] called pt, [...] screening mammogram Referral Priority Routine Reason ICO SCOOPING MACHINE TENDER request for increase Diagnosis 1 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 ICO, It Security Consultant email address: [email or web address], Is this request for an Initial, Increase, Decrease, or AFC respite? Increase, If this is an urgent need for increase in hours please provide rationale: Mbr requests overnight hours - 12am - 6am for safety concerns, Who is requesting SCOOPING MACHINE TENDER services or changes of SCOOPING MACHINE TENDER services and their relationship to the member? Mbr , Diagnosis with ICD10 code that supports need for SCOOPING MACHINE TENDER: F51.05, R26.81, R45.851, Which of the at least 2 ADL hands on needs does this member need assistance with: grooming, ambulating, bathing, Additional hands on needs: Mbr quite fearful for her safety overnight - sleepwalks - exits apt - wanders, What are the member's informal supports? Chuck, Will member likely need a surrogate to manage a SCOOPING MACHINE TENDER? no, If yes, provide surrogate contact if available: , Primary contact for Member: [phone] , Members preferred language: nigerian, Does member have existing LTSS? Please list: , Will SCOOPING MACHINE TENDER be replacing the LTSS? Please list: , Provide name and contact info for GSSC/LTSC: , Please ensure members GSSC/LTSC is aware of SCOOPING MACHINE TENDER request, Please identify PCM agency and FI member will be using: [employer] Referral Priority Urgent Reason Echocardiogram (Faxe d 01/03) Diagnosis 1 Shortness of breath (R06.02) Diagnosis 2 Hypertensive heart a nd kidney disease without heart failure (I13.10) Referral Organization [facility] Primary Care [facility] Referring Provider First Name Rama Referring Provider Last Name Michael Referring Provider Speciality Nurse Jim bryant Family Referred Provider [facility] ter (Facility) Referred Provider Specialty Cardiology Procedure 1 TTE W/DOPPLER, COMPL ETE (25265) General Notes Rama Rodriguez 12/29/19 06:33:12 PM > Please schedule echocardiogram appt for patient and contact with appt info. Order in ecw., VaniaRiya limonfer 12/29/2024 08:58:30 AM > forwarding to America Ramos. No Prior auth needed, VaniaSophia limon 01/03/2025 08:22:24 AM > Address: [address] [place] [address], , . Referral Faxed, Izabel Goodrich 01/03/2025 03:19:26 PM > Called to follow up, and scheduled the member for 02/13/25 at 1:30 pm at [facility], [address] [place], [place]. - Main Entrance ground floor. Called member [...] specified soft tissue disorders (M79.89) Referral Organization [facility] Primary Care [facility] Referring Provider First Name Rama Referring Provider Last Name Michael Referring Provider Speciality Nurse Prac titioner Family Referred Provider [facility] Vascular Se rvices Referred Provider Specialty Vascular Peter tea General Notes Michael Rama 01/03/20 01:35:46 PM > Please schedule appt for patient and contact with appt info. She may not be able to do same day appt due to transportation issues., Vania Sophia 01/02/2025 01:47:55 PM > forwarding to Joleen Tejeda Marylin 01/02/2025 02:32:14 PM > 01/05/25 at 2:[address] pm at [address] [place] [address] [address]. Called member and gave her the appt. details. Orders faxed. closing referral, phone: [phone], fax: [phone] Clinical Notes Rama Rodriguez 01/03/20 01:35:25 PM > Patient with left hand swelling, labs and x-ray not showing any clear cause, u/s ordered to evaluate for DVT. Referral Priority Urgent Reason Physical Therapy/Aqu atherapy referral Diagnosis 1 Chronic pain syndrom e (G89.4) Referral Organization [facility] Referring Provider First Name Edie Referring Provider Last Name Cristal Referring Provider Speciality Internal M edicine Referred Provider Specialty Physical The benoit General Notes Edie Bee 02/01/2025 06:52:10 PM > Please assist with aquatherapy referral to:, [facility], [address] [place] [address], , Documentation in today's note., Sophia Caro 02/02/2025 08:28:02 AM > forwarding to Selina Belle Joy 02/02/2025 09:09:33 AM >[phone] [facility] does this at the [facility], Katheryn Marks 02/02/2025 09:10:53 AM >[facility] called APT at [phone] - required to leave message, asked to advise if doing aquatic therapy at [facility], to call SPF #, America Ramos 02/02/2025 10:50:38 AM >Recv a call from Rani / [facility] advising that they will place pt on waiting list for aqua therapy and since pt has been pt before she will try and get her in a couple weeks., Katheryn Marks 02/02/2025 11:29:40 AM >[facility] called patient, advised that she has been [...] back pain and scoliosis. Referral Priority Routine Medications Medication SIG (Take, Route, Frequency, Duration) Notes Start Date End Date Status lamoTRIgine ER 200 MG 2 tablets Orally once daily Active hydrOXYzine HCl 50 MG 1 tablet as needed Orally Once a day Active Lidocaine 4 % 1 patch remove after 12 hours Externally Once a day Active Levothyroxine Sodium 150 MCG 1 tablet in the morning on an empty stomach Orally Once a day; Duration: 90 days Active Albuterol Sulfate 108 (90 Base) MCG/ACT 1 puff as needed Inhalation every 4 hrs Active Cyclobenzaprine HCl 5 MG 1 tablet Orally 3 times a day Active Prazosin HCl 5 MG 1 capsule at bedtime Orally Once a day Active Melatonin 3 MG 1 tablet at bedtime as needed Orally Once a day Active Magnesium Oxide -Mg Supplement 400 (240 Mg) MG 1 tablet with food Orally Once a day; Duration: 90 days Active Ondansetron 4 MG 1 tablet on the tongue and allow to dissolve Orally Once a day as needed for nausea 05/24/2024 Active Multivitamin Adult (Minerals) - as directed Orally Once a day; Duration: 30 days 12/09/2024 Active hydrALAZINE HCl 50 MG 1 tablet with food Orally 3 times a day; Duration: 30 days dose increase 11/07/2024 Active traZODone HCl 50 MG 1 tablet at bedtime as needed Orally Once a day Active Spironolactone 50 MG 1 tablet Orally Once a day 12/28/2024 Active Vitamin B12 1000 MCG 1 tablet Orally Once a day Active oxyCODONE HCl 5 MG 1 tablet as needed for severe pain Orally twice a day; Duration: 7 days Partial Fill upon Patient Request 02/01/2025 Active Triamcinolone Acetonide 0.1 % 1 application (1 gram) Externally to hands, left wrist, and left arm Once a day; Duration: 7 days Active Ferrous Sulfate 325 (65 Fe) MG 1 tablet Orally Every other day Active EpiPen 2-Terry 0.3 MG/0.3ML Inject the contents of one pen as needed for symptoms of anaphylaxis, call 911 Injection; Duration: 30 days 01/10/2025 Active RABEprazole Sodium 20 MG 1 tablet 1/2 to 1 hour before a meal Orally Once a day Active Fluticasone Propionate 50 MCG/ACT 1 spray in each nostril Nasally Twice a day Active Pregabalin 75 MG 1 capsule Orally Twice a day 09/08/2024 Active Loperamide HCl 2 MG 1 tablet as needed Orally Four times a day Not-Taking Wixela Inhub 100-50 MCG/ACT 1 puff Inhalation Twice a day Active D-1000 Extra Strength 25 MCG (1000 UT) 1 tablet Orally Once a day; Duration: 90 days Active clonazePAM 1 MG 1 tablet as needed Orally twice a day Active DULoxetine HCl 60 MG 1 capsule Orally daily 09/05/2024 Active Dicyclomine HCl 20 MG 1 tablet Orally Four times a day; Duration: 90 days As needed Active amLODIPine Besylate 10 MG 1 tablet Orally Once a day Active Cetirizine HCl 10 MG 1 tablet Orally Active Celecoxib 200 MG 1 capsule Orally twice a day Active Immunizations Vaccine Route Administration Date Status Comme [facility] [id number] Flu Vac (Flucelvax) PFS IM Intramuscular 12/21/2023 Administered Alyssa Patel 12/21/2023 10:05:15 AM > COVID - 19 Bivalent Booster (Moderna) Unknown 03/06/2022 Administered given at [facility] COVID-19 SPIKEVAX (Moderna) Unknown 12/20/2024 Administered [...] (Shingrix) Recombinant Unknown 03/06/2022 Administered given at [facility] Zoster Vac (Shingrix) Recombinant IM Intramuscular 06/05/2023 Administered Alyssa Patel 06/05/2023 01:18:02 PM > Problems Problem Type SNOMED Code ICD Code Onset Dates Problem Status W/U Status Risk Notes Problem Feeling suicidal (602218476) Suicidal ideations (R45.851) Active confirmed Problem Cervicalgia (80114577) Cervicalgia (M54.2) Active confirmed Problem Migraine without aura, not refractory (disorder) (459378779) Migraine, unspecified, not intractable, without status migrainosus (G43.909) Active confirmed Problem Hyperlipidemia (63427727) Hyperlipidemia, unspecified (E78.5) Active confirmed Problem Gastro-esophage al reflux disease without esophagitis (306285483) Gastro-esophageal reflux disease without esophagitis (K21.9) Active confirmed Problem Vitamin D deficiency (68346640) Vitamin D deficiency, unspecified (E55.9) Active confirmed Problem Amnesia (45328952) Other amnesia (R41.3) Active confirmed Problem Chest pain (98277427) Chest pain, unspecified (R07.9) Active confirmed Problem Generalized anxiety disorder (78688812) Generalized anxiety disorder (F41.1) Active confirmed Problem Iron deficiency anemia (72594714) Iron deficiency anemia (D50.9) Active confirmed Problem Borderline personality disorder (48855937) Borderline personality disorder (F60.3) Active confirmed Problem Macromastia (995822358) Macromastia (N62) Active confirmed Problem Chronic pain syndrome (260873902) Chronic pain syndrome (G89.4) Active confirmed Problem Paresthesia (54947346) Paresthesia (R20.2) Active confirmed Problem Obstructive sleep apnea (71980380) Obstructive sleep apnea (G47.33) Active confirmed Problem Anxiety (10630028) Anxiety (F41.9) Active confirmed Problem Severe recurrent major depression without psychotic features (27742017) Major depressive disorder, recurrent severe without psychotic features (F33.2) Active confirmed Problem Severe recurrent major depression with psychotic features (26996546) Major depressive disorder, recurrent, 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) Active confirmed Problem Tardive dyskinesia (392190187) Tardive dyskinesia (G24.01) Active confirmed Problem Abnormal gait (18146383) Unsteadiness on feet (R26.81) Active confirmed Problem Localized edema (3547638) Localized edema (R60.0) Active confirmed Problem Dysphonia (29308377) Dysphonia (R49.0) Active confirmed Problem Celiac disease (559498615) Celiac disease (K90.0) Active confirmed Problem Psychophysical visual disturbance (86640437) Visual hallucination (R44.1) Active confirmed Problem Peripheral vascular disease (798409699) PVD (peripheral vascular disease) (I73.9) Active confirmed Problem Psoriasis (8583658) Psoriasis (L40.9) Active confirmed Problem Insomnia disorder related to another mental disorder (03426571) Insomnia due to other mental disorder (F51.05) Active confirmed Problem Hereditary disorder of nervous system (012410586) 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) Active confirmed Problem Morbid obesity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 G43.711) See above. 06/29/2024 Hypertensive heart and kidney disease without heart failure (ICD-10 - I13.10) BP above goal today, was variable during recent hospital admission. Recommended stopping Excedrin migraine today for multiple reasons- likely causing rebound headaches, contains asprin which she should not be taking prior to procedure, and it may be raising her blood pressure. Continue amlodipine and spironolactone. 01/24/2025 Spondylosis without myelopathy or radiculopathy, lumbar region (ICD-10 - M47.816) I explained that I discussed her request for buprenorphine with Dr. Bee recently and she advised that we should wait until the acute migraines subside to make any changes to her medications. We also discussed that it would not be an appropriate treatment for migraines. She says she wants to take it for back pain and doesn't ever think her headaches will improve. She just had a PT evaluation this morning and I advised that PT is a good way to address her back pain without the use of more medication (as she also complained during the visit that she takes too many medications). 06/02/2024 Incisional hernia, without obstruction or gangrene (ICD-10 - K43.2) - Resulted in partial small bowel obstruction- Note from surgeon (Dr. Marx) reviewed in [facility], does encourage weight loss prior to hernia repair due to risk of recurrence but does not denote specific BMI 02/01/2025 Low back pain, unspecified (ICD-10 - [...] a significant wait list for these services 10/28/2024 Hypothyroidism, unspecified (ICD-10 - E03.9) TSH 5.14 while in the hospital, will repeat again with labs, may need to increase levothyroxine dose. Noted that her zovytax-kh-lst Chuck would like to be informed regarding any medication changes. 11/04/2024 Hypertensive heart and kidney disease without heart failure (ICD-10 - I13.10) 11/30/2024 Major depressive disorder, recurrent severe without psychotic features (ICD-10 - F33.2) 12/06/2024 Major depressive disorder, recurrent, severe with [...] with psychiatrist at upcoming appt as well. 12/21/2024 Hypertensive heart and kidney disease without heart failure (ICD-10 - I13.10) - In office and home blood pressures remain above goal- Increase amlodipine back to 10 mg daily and continue close monitoring 12/22/2024 Generalized anxiety disorder (ICD-10 - F41.1) 12/27/2024 Pain in left hand (ICD-10 - M79.642) See above. 01/10/2025 Chronic pain syndrome (ICD-10 - G89.4) Will request recent consult notes from [facility]. She is about to start PT. Will discuss her request to restart buprenorphine with Dr. Bee. 10/28/2024 Hypertensive heart and kidney disease without [...] she is still taking spironolactone and hydralazine. 10/14/2024 Hypothyroidism, unspecified (ICD-10 - E03.9) TSH 0.65 in March, rechecking for monitoring and due to recent weight gain. 10/05/2024 Major depressive disorder, recurrent severe without [...] gradually increased to a pretty high dose 08/10/2024 Other staphylococcus as the cause of diseases classified elsewhere (ICD-10 - B95.7) 06/02/2024 Morbid (severe) obesity due to excess [...] GLP-1- Discussed and agree to nutrition referral 04/28/2024 Memory changes (ICD-10 - R41.3) - also recurrent - Toma had seen a lot of improvement and reported feeling clear-headed after discontinuation of many medications following her colectomy - has pending evaluation with neurology - encouraged discussing current medication regimen with psych provider as she had been doing much better before medications were added back 12/22/2024 Somatization disorder (ICD-10 - F45.0) 12/27/2024 Shortness of breath (ICD-10 - R06.02) She reports recent testing at [facility] in [place] where she was noted to be breathing [...] noted in the echocardiogram report from 2019. 01/10/2025 Obstructive sleep apnea (ICD-10 - G47.33) Her neurologist has expedited rescheduling a sleep medicine appt she missed while in the hospital- now scheduled for 01/13/25. 02/01/2025 Scoliosis, unspecified (ICD-10 - M41.9) 01/10/2025 Chronic migraine without aura with status migrainosus, not intractable (ICD-10 - G43.701) During her visit I was able to find the sleep medicine consult note from [facility] on 01/09/25- scanned into chart. [...] access next time) if her pain worsens. 12/22/2024 Skin-picking disorder (ICD-10 - F42.4) 02/01/2025 Dysphonia (ICD-10 - R49.0) - Undergoing evaluation with speech-language pathology and had a recent fees study, participating in speech therapy 04/28/2024 Macromastia (ICD-10 - N62) - discussed that insurance approval process may require shoulder girdle PT, weight reduction, etc. - would like to meet with a surgeon to discuss further 06/02/2024 Body mass index [BMI] 39.0-39.9, adult (ICD-10 - Z68.39) 12/06/2024 Moderate persistent asthma, uncomplicated (ICD-10 - J45.40) Advised she can restart Wixela is on her discharge med list, updated correct dose in our records (100-50 mcg, prescribed by her review scheduling coordinator Dr. Talley). She has follow-up with Dr. Talley on 12/13/24. 08/10/2024 Hospital discharge follow-up (ICD-10 - Z09) - Discharge summary reviewed summarized in HPI- Medication reconciliation completed- TRN out reach reviewed 10/28/2024 Other symptoms and signs involving appearance and behavior (ICD-10 - R46.89) We discussed concerns about her behavior changes and cognitive changes in detail today. Her gclhgqe-av-ozs thinks the sleepwalking episodes may be related to an Ambien dose change, but we discussed that it appears this medication change (switch from Zolpidem 5mg to Zolpidem extended release 6.25mg) was made by her previous psychiatrist in back May, and her behaviors have changed in the [...] phone number for her ACCS team though [facility]. When I stepped out of the room to print the letter for her apartment complex regarding having an extra lacy in a lock box, Hemalatha had spoken about a partial hospitalization program, [...] monitoring. 10/05/2024 Somatization disorder (ICD-10 - F45.0) 02/01/2025 Need for assistance with personal care (ICD-10 - Z74.1) - Discussed current [employer] hours and increased needs- We can certainly [...] able to toilet, dress, and ambulate independently 01/10/2025 Morbid (severe) obesity due to excess calories (ICD-10 - E66.01) She is frustrated by her hunger and weight gain. She is working with a sonogram technician. We discussed trying to only have healthy [...] and exercise and will continue these methods. 12/06/2024 Iron deficiency anemia (ICD-10 - D50.9) Started on iron supplement during admission, also noted to have low side of normal B12 levels (started on B12 supplement also), will plan to repeat labs in a month or two for monitoring. 10/05/2024 Encounter for screening mammogram for malignant [...] current rash- Discussed reasons for follow-up evaluation 12/22/2024 Post-traumatic stress disorder, chronic (ICD-10 - F43.12) 06/02/2024 Obesity, class 2 (ICD-10 - E66.812) 02/01/2025 Deficiency of other specified B group vitamins (ICD-10 - E53.8) - Associated diagnoses E61.1 Iron deficiency- Has been taking supplements for over 6 weeks, plan to repeat labs at follow-up visit 01/10/2025 Allergy to other foods (ICD-10 - Z91.018) strawberries and tree nuts Epi-pen rx sent. 12/06/2024 Allergic rhinitis, unspecified seasonality, unspecified trigger (ICD-10 - J30.9) Ok to restart Flonase, continue cetirizine. 06/02/2024 Intractable chronic migraine without aura and [...] day in an attempt to lose weight 12/22/2024 Moderate persistent asthma, uncomplicated (ICD-10 - J45.40) 08/10/2024 Skin-picking disorder (ICD-10 - F42.4) 02/01/2025 Iron deficiency (ICD-10 - E61.1) 12/22/2024 Hypertensive heart and kidney disease without heart failure (ICD-10 - I13.10) 06/02/2024 Recurrent falls (ICD-10 - R29.6) - Associated diagnosis: F51.04 Psychohysiological insomnia - Strongly encouarged discussion with psychiatry as it does seem like most falls are overnight/after taking Ambien which is minimally effective anyhow - Fall on ice was more typical and likely unrelated to any underlying pathology 08/10/2024 Moderate major depression (ICD-10 - F32.1) - Chronic symptoms with exacerbation secondary to family turmoil- Following closely with therapist and psychiatrist- Does not endorse any suicidal ideation, finds her support team very helpful as well as her dog, is very well aware of resources 12/06/2024 Migraine, unspecified, not intractable, without status migrainosus (ICD-10 - G43.909) Ok to restart magnesium for headache prevention, she is trying to get sooner appt with her neurologist. 12/22/2024 Major depressive disorder, recurrent, severe with [...] she completed her mammogram this year through [facility], will request records Plan Of Treatment Pending Test Test Name Order Date Barium Swallow 04/28/2024 X ray : Hand, left 12/27/2024 Echocardiogram 12/27/2024 Echocardiogram 04/24/2022 DEXA Hip and Spine 12/21/2023 Electrocardiogram (EKG) 06/05/2020 Iron and TIBC 12/28/2019 Ferritin, Serum 12/28/2019 Transferrin 12/28/2019 CBC With Differential/Platelet 0 CBC With Differential/Platelet 1 CBC With Differential/Platelet Reticulocyte Count 09/19/2020 Blood Culture, Routine 12/26/2020 [...] CoV 2 RNA(COVID 19), QUALITATIVE NA AT ([id number]) 01/25/2021 BASIC METABOLIC PANEL 04/22/2021 CBC (COMPLETE BLOOD COUNT) 05/27/2021 CBC (COMPLETE BLOOD COUNT) WITH DIFF COMPREHENSIVE METABOLIC PANEL 05/27/2021 COVID-19 (NOVEL CORONAVIRUS) PCR 022 HEMOGLOBIN A1C 04/17/2021 LIPID PANEL 04/17/2021 Vitamin D, [id number] 10/14/2024 Comp. Metabolic Panel [id number] 2024 TSH Rfx on Abnormal to Free [id number] Future Test Test Name Order Date COVID-19 (To [facility] Only) 02/20/20 20 CBC With Differential/Platelet 1 Basic Metabolic Panel (8) 05/25/2020 CBC 06/02/2020 CBC 06/03/2020 CBC With Differential/Platelet 1 Basic Metabolic Panel (8) 06/05/2020 CBC With Differential/Platelet 1 Basic Metabolic Panel (8) 06/22/2020 B TYPE NATRIURETIC PEPTIDE (BNP) 021 Next Appt Details Provider Name:Edie lepe, 02/13/2025 10:15:00 AM, [address], [place], [address], Insurance Providers Payer Name Payer Address Payer Phone Subscriber Number Group Number Insured Name Patient Relationship to Insured Coverage Start Date Coverage End Date [address] [phone] [id number] TOMA HAYDEN Self - patient is the insured [phone] [phone] [id number] TOMA HAYDEN Self - patient is the [...] bursitis, bilateral, had cortisone i njections at [facility] 11/2020 Depression F32.9 Generalized anxiety disorder F41.1 [...] [facility] [address] [facility] History Reason Date(Month/Year) [facility] Inpatient [...] inal pain, headaches headache, stroke eval 07/19 [facility] headache, pseudotumor cer ebri 01/16/20-01/20/20 [facility] SOB, weight gain, chest pain, cough 01/03/20-01/06/20 [facility] FLAQUITA, CHF exacerbation 12/12/19- 0 [facility] FLAQUITA, hypokalemia from overdiuresis -12/07/19 [facility] Chest pain 11/16/19-11/17/19 [place] 09/04/17-09/04/17 [facility] toxic encephalopathy 08/31/17-09/04/17 [facility] Cough, anxiety, depression 06/20/19. [facility] Constipation, jejunitis 03/29/19-04/01 headache, stroke eval 09/23/20 L[facility] cellulitis 09/16/20 LLE cellulitis 09/10/20 potassium low, vomiting 03/2021 rule out CVA, anxiety, depression 09/2020 intractable pain 08/2020 cellulitis 08/2020
--- OUTSIDE RECORDS SUMMARY | 2025-02-04 09:45 | XMS_ITS | Data Portability ---
Author Organization [place] [facility] Address [address] [place] [id number] Care Team Providers Care Gum Machine Filler Name Role Phone GUTIERREZ RENTERIA Primary Care [...] without any abnormal findings. Will obtain the WORK TICKET DISTRIBUTOR to evaluate for possible CHF however lung [...] after care of this patient according to [facility]'s infection prevention protocols. In order to obtain further information and compare any laboratory results/values, I have accessed patient records on the [employer]. This information was pertinent in [...] eaten in 3 days. Patient transferred to [facility] ED for evaluation and management. Discussed [...] after care of this patient according to [facility]'s infection prevention protocols. In order to obtain [...] electrolyte derangement. Labs will be sent to [facility] for LFTs. PT advised to seek ED [...] avoid nuts and to follow with her social science manager for further testing.Patient advised if develops difficulty [...] after care of this patient according to [facility]'s infection prevention protocols. In order to obtain further information and compare any laboratory results/values, I have accessed old patient records. This information was pertinent in my medical decision making today. [email or web address] Not available 10/16/2019 17:09:48 Plan of Treatment Reminders Order Date Submit Date Provider Last Modified By Organization Details Last Modified Time Details Appointments None recorded. Lab 6+ [facility]Stat 2019 [facility], [address] [place], [address], 0 19:07:13 creatinine , blood 2019 020 [facility], [address] [place], [address], 0 19:07:14 hepatic function panel, serum 2019 020 [facility] (Centralized Electronic Ordering - All Locations), Patient Can Go To The Location Of Their Choice, [id number] 0 21:14:15 6+ iStat 2019 020 [facility], [address] [place], [address], 0 12:02:20 creatinine , blood 2019 020 [facility]io [facility], [address] [place], [address], 0 12:02:20 pro BNP (pro B-type natriureti c peptide), serum or plasma 2019 AYE [facility] (Centralized Electronic Ordering - All Locations), Patient Can Go To The Location Of Their Choice, [id number] 0 20:10:27 Referral None recorded. Procedures None recorded. Surgeries None recorded. Imaging None recorded. Medication Orders diphenhydr amine 25 mg tablet 2019 lsaloio [id number], [address] [place] [address], [address], 0 16:54:13 promethazi ne 25 mg rectal suppositor y 2019 INTERFACE [id number], [address] [facility], [place], [address], 0 19:10:52 Patient TargetsNo targets recorded. Patient Instructions Encounter Date Encounter Id Patient Instructions Last Modified By Organization Details Last Modified Time 10/01/[id number] [facility] came to your home to evaluate you for nausea, vomiting, swollen legs, decreased urination. You have been having these symptoms for weeks. You went to the [facility] ED for the same symptoms on 09/29/2019. Your labs then were unremarkable. We did check your labs while we were in your home. We also sent labs to check liver function tests to [facility]. You are already taking zofran [...] Not Available [facility] [address] [place], [address], 10/01/2019 19:03:47 09/27/19 20 09/27/2019 creat inine , blood crea 1.3 mg/dL 0.6-1. 3 Not Available [facility] [address] [place], [address], 09/27/2019 11:38:47 09/27/19 20 09/27/2019 pro BNP (pro B-typ e natri ureti c pepti de), serum or plasm a pro BNP 262 pg/mL (0-125 ) high Not Available [facility] (Centralized Electronic Ordering - All Locations) Patient Can Go To The Location Of Their Choice, [id number] 09/27/2019 20:10:26 09/27/19 20 09/27/2019 6+ iStat Na 140 mmol/ L 138-14 6 Not Available [facility] [address] [place], [address], 09/27/2019 11:38:31 09/27/19 20 09/27/2019 6+ iStat K 4.1 mmol/ L 3.5-4. 9 Not Available [facility] - [facility] [address] [place], [address], 09/27/2019 11:38:31 09/27/19 20 09/27/2019 6+ iStat cL 104 mmol/ L 98-109 Not Available [facility] [address] [place], [address], 09/27/2019 11:38:31 09/27/19 20 09/27/2019 6+ iStat BUN 19 mg/dL 8-26 Not Available [facility] [address] [place], [address], 09/27/2019 11:38:31 09/27/19 20 09/27/2019 6+ iStat glu 77 mg/dL 70-105 Not Available [facility] [address] [place], [address], 09/27/2019 11:38:31 09/27/1909/27/2019 6+ iStat HCT 34 %_pcv 37-47 Not Available [facility] [address] [place], [address], 09/27/2019 11:38:31 09/27/1909/27/2019 6+ iStat Hb 11.6 g/dL 12-17 Not Available [facility] [address] [place], [address], 09/27/2019 11:38:31 10/01/1910/01/2019 hepat ic funct ion [...] Go To The Location Of Their Choice, [id number] 10/01/2019 21:14:15 10/01/1910/01/2019 hepat ic funct ion panel , serum alk phos 84 U/L (35-10 4) Not Available [facility] (Centralized Electronic Ordering - All Locations) Patient Can Go To The Location Of Their Choice, [id number] 10/01/2019 21:14:15 10/01/1910/01/2019 hepat ic funct ion panel , serum total protein 6.2 gm/dL (6.2-8 .2) Not Available [facility] (Centralized Electronic Ordering - All Locations) Patient Can Go To The Location Of Their Choice, [id number] 10/01/2019 21:14:15 10/01/1910/01/2019 6+ iStat Na 140 mmol/ L 138-14 6 Not Available [facility] [address] [place], [address], 10/01/2019 19:03:44 10/01/1910/01/2019 6+ iStat K 3.6 mmol/ L 3.5-4. 9 Not Available [facility] [address] [place], [address], 10/01/2019 19:03:44 10/01/1910/01/2019 6+ iStat cL 104 mmol/ L 98-109 Not Available [facility] [address] [place], [address], 10/01/2019 19:03:44 10/01/1910/01/2019 6+ iStat BUN 17 mg/dL 8-26 Not Available [facility] [address] [place], [address], 10/01/2019 19:03:44 10/01/1910/01/2019 6+ iStat glu 123 mg/dL 70-105 Not Available [facility] [address] [place], [address], 10/01/2019 19:03:44 10/01/19 20 10/01/2019 6+ iStat HCT 33 %_pcv 37-47 Not Available [facility] - [facility] [address] [place], [address], 10/01/2019 19:03:44 10/01/19 20 10/01/2019 6+ iStat Hb 11.2 g/dL 12-17 Not Available [facility] [address] [place], [address], 10/01/2019 19:03:44 10/07/19 20 elect anitadennis tanyagr am No observ ation record ed. BARCODE Not Available 2019 08:58:36 Result Notes None recorded. Procedures Surgical History Date Name Laterality Status Provider Name and Address Organization Details Recorded Time 09/27/19 20 Venipuncture - completed TAYLOR JOYNER [address] [place], [address], [place] [facility] 09/27/2019 11:38:20 09/27/19 ECG Interpretation - completed TAYLOR JOYNER [address] [place], [address], [place] [facility] 09/27/2019 11:58:23 Imaging Results None recorded. Procedure Notes None recorded. Medical Equipment None Reported. Allergies Allergen ID Allergen Name Allergen Category Reaction Reaction Severity Criticality Documentation Date Start Date Code Code System Note Provider Name and Address Organization Details Recorded Time 256369 Product containin g penicilli n (product) medicatio n Not available Not available Not available 09/27/2019 43711 8001 SNOMED TAYLOR JOYNER [address] [place], [address], [place] [facility] 0 11:09:44 226069 Substance with sulfonami de structure and antibacte rial mechanism of action (substanc e) medicatio n Not available Not available Not available 09/27/2019 97087 8003 SNOMED TAYLOR JOYNER [address] [place], [address], [place] [facility] 0 11:09:50 254380 Keflex medicatio n Not available Not available Not available 09/27/201942536 7 RxNoTAYLOR Jackson [address], [place], [place], [address], [place] [facility] 0 11:09:55 014172 droperido l medicatio n Not available Not available Not available 09/27/2019 3648 RxNoTAYLOR Jackson [address], [place], [address], [place] [facility] 0 [...] /min 99 [degF] 118/88 mm[Hg] Not Available [facility] 0 11:12:04 Date Recorded Body temperature Oxygen saturation Oxygen saturation in Arterial blood by Pulse oximetry Respiratory rate Heart rate Systolic And Diastolic Provider Name and Address Organization Details Last Updated DateTime 0 98.5 [degF] 94 % 94 % 22 /min 107 /min 136/82 mm[Hg] Not Available [facility] 0 13:18:53 Date Recorded Heart rate Respiratory rate Body temperature Oxygen saturation Oxygen saturation in Arterial blood by Pulse oximetry Systolic And Diastolic Provider Name and Address Organization Details Last Updated DateTime 0 108 /min 18 /min 97.9 [degF] 96 % 96 % 126/86 mm[Hg] Not Available [facility] 0 18:42:13 Date Recorded Respiratory rate Body temperature Heart rate Oxygen saturation Oxygen saturation in Arterial blood by Pulse oximetry Systolic And Diastolic Provider Name and Address Organization Details Last Updated DateTime 0 28 /min 97.9 [degF] 110 /min 99 % 99 % 128/58 mm[Hg] Not Available [facility] 0 16:45:22 Social History None recorded. Functional Status None recorded. Mental Status None recorded. Family History Nothing Reported. Medical History Condition Response Diabetes N Coronary Artery Disease N High Cholesterol N Pulmonary Embolism N Cancer N Hypertension N Stroke N Asthma Y COPD N Depression Y Kidney Disease N Gynecological HistoryNo gynecological history recorded. Obstetrics History GPAL:G 0 P 0 0 0 0 Past Encounters Encounter ID Performer Location Encounter Start Date Encounter Closed Date Diagnosis/Indication Diagnosis SNOMED-CT Code Diagnosis ICD10 Code Diagnosis IMO Codes Diagnosis Note [id number] TAYLOR JOYNER [facility] [address] [place] [address] 09/27/2019 11:08:23 09/27/2019 15:19:49 Edema of lower extremity 628981648 R60.0 Dyspnea 036781357 R06.00 Asthma 484850236 J45.90 9 [id number] OSKAR ARNDT PA [facility] [address] [place] [address] 09/29/2019 13:13:32 10/03/2019 14:42:28 Pain in left lower limb 561099774 M79.605 Edema of l ower extremity 685901661 R60.0 Abdominal pain 22508930 R10.9 [id number] JESSICA BESS NP [facility] [address] [place] [address] 10/01/2019 17:56:30 10/03/2019 17:56:46 Nausea and vomiting 72659571 R11.2 Abdominal pain 37616281 R10.9 [id number] TAYLOR JOYNER [facility] [address] [place] [address] 10/16/2019 16:41:32 10/19/2019 13:42:20 Allergic reaction to food 753884575 T78.1XXA Health Concerns Section Related Observation LastModified by Organization Detai ls LastModified Time None Recorded Concern Status LastModified by Organization Details LastModified Time None Recorded Advance Directives Directive None Recorded Payers Insurance Date Sequence Insurance Name Policy Number Policy Bello Covered Member ID Bello Member ID Guarantor Name 10/04/2019 1 *SELF PAY* Lise Grace [id number] Lise Grace 10/04/2019 1 [facility] - DOS PRIOR TO 2022 - DUAL ELIGIBLE (MEDICARE REPLACEMENT/AD VANTAGE - HMO) Lise Grace [id number] Lise Grace 10/27/2019 1 [facility] - DOS PRIOR TO 2022 - DUAL ELIGIBLE (MEDICARE REPLACEMENT/AD VANTAGE - HMO) Lise Grace [id number] Lise Grace 10/04/2019 1 [place] [employer] [facility] Lise Grace [id number] Lise Gutermann 10/04/2019 2 [facility] [facility] [facility] - DOS PRIOR TO 2022 - DUAL ELIGIBLE (MEDICARE REPLACEMENT/AD VANTAGE - HMO) Lise Gutermann [id number] Lise Gutermann 10/27/2019 1 [facility] [facility] - DOS PRIOR TO 2022 - DUAL ELIGIBLE (MEDICARE REPLACEMENT/AD VANTAGE - HMO) Lise Gutermann [id number] Lise Gutermann 10/04/2019 1 [facility] [facility] - DOS PRIOR TO 2022 - DUAL ELIGIBLE (MEDICARE REPLACEMENT/AD VANTAGE - HMO) Lise Muñozermann [id number] Lise Gutermann 10/04/2019 2 [place] [facility] Lise Muñozted [id number] Lise Gutermann 10/04/2019 1 [place] [employer] Lise Toniermann [id number] Lise Gutermann 10/04/2019 1 [facility] - DOS PRIOR TO 2022 - DUAL ELIGIBLE (MEDICARE REPLACEMENT/AD VANTAGE - HMO) Lise Muñozermann [id number] Lise Gutermann 10/04/2019 1 [place] [employer] Lise Gutermann [id number] Lise Gutermann 10/04/2019 1 [place] [employer] Lise Gutermann [id number] Lise Gutermann 10/04/2019 2 [facility] [facility] - DOS PRIOR TO 2022 - DUAL ELIGIBLE (MEDICARE REPLACEMENT/AD VANTAGE - HMO) Lise Muñozermann [id number] Lise Gutermann 10/04/2019 2 [facility] - DOS PRIOR TO 2022 - DUAL ELIGIBLE (MEDICARE REPLACEMENT/AD VANTAGE - HMO) Lise Gutermann [id number] Lise Gutermann 10/04/2019 1 [place] [employer] Lise Gutermann [id number] Lise Tonited Notes Date Note Type Note Provider Name and Address Organization Details Recorded Time 09/27/2019 text/html 48-year-old female presents for evaluation. Reports 2 weeks ago noted swelling of both legs (L>R). Reports pain of both legs. States spoke with PCP over phone 2 weeks ago about this and was advised to go to the ED. went to [facility] ED for the same 4 days ago [...] appointment next week with pain management in [place]. Patient has had multiple recent ED visits for shortness of breath, leg edema, and leg pain. US has been negative for DVT, BNP, BMP within normal limits, chest xray negative 4 days ago, COVID testing negative, EKG sinus rhythm with prolonged QT and no ischemic changes noted. TAYLOR JOYNER, [place], [address], [place] [facility] 09/27/2019 12:23:26 09/29/2019 text/html [...] 30 minutes prior to exam. TAYLOR JOYNER, [place], [address], [place] [facility] 09/29/2019 14:20:03 10/01/2019 text/html [...] swelling. JESSICA BESS NP [address], [place], [address], [place] [facility] 10/01/2019 19:31:57 10/16/2019 text/html [...] for relief. TAYLOR JOYNER [address], [place], [address], [place] [facility] 10/16/2019 17:09:56 OBGyn Episode No OBEpisode recorded.
--- NOTE | 2025-02-04 10:09 | ED_ITS ---
HPI - General Adult General Chief complaint: Back Pain/Injury Stated complaint: back pain Time Seen by Provider: 02/04/25 09:31 Source: patient Mode of arrival: ambulatory Limitations: no limitations History of Present Illness ED Provider: TAYLOR Mcneill HPI narrative: This is a 54-year-old female past medical history significant for PTSD, personality disorder, anxiety, depression, migraines she presents with severe right-sided flank pain, she describes it as skin hypersensitivity severe burning, all these symptoms have been going on for about 5-7 days. She was feeling unwell before she had these symptoms. She was seen multiple providers over the last week she was given Flexeril, oxycodone, meloxicam and Celebrex with no improvement. She is followed by [facility] for her back pain however this feels different she reports this is a superficial very burning pain. She denies saddle anesthesias, changes in urinary or bowel habits, fevers, chills, recent illness or sick contacts, chest pain, shortness of breath. Related Data Previous Rx's ?Medication ?Instructions ?Recorded acetaminophen 500 mg tablet 1,000 mg (2 x 500 mg) PO Q ID PRN 10/02/20 (Tylenol Extra Strength) fever or pain #14 tabs ferrous sulfate 325 mg (65 mg 325 mg PO DAILY Iron def iciency 10/02/20 iron) tablet anemia #30 tabs ibuprofen 400 mg tablet 400 mg PO Q6H PRN pain #14 t abs 10/02/20 benzonatate 200 mg capsule 200 mg PO TID PRN cough #30 caps 10/31/21 doxycycline hyclate 100 mg tablet 100 mg PO BID #20 ta bs 10/31/21 prednisone 20 mg tablet 40 mg (2 x 20 mg) PO DAILY # 10 tabs 10/31/21 nitrofurantoin 100 mg PO BID 7 days #14 cap s 12/15/21 monohydrate/macrocrystals 100 mg capsule (Macrobid) ondansetron 4 mg disintegrating 4 mg PO Q8H #14 tabs 0 12/15/21 tablet cyclobenzaprine 10 mg tablet 10 mg PO TID PRN muscle s pasm #14 12/31/21 tabs lidocaine 5 % topical patch 1 patch topical DAILY #30 ea 12/31/21 cyclobenzaprine 5 mg tablet 5 mg PO TID PRN muscle spa sm #10 05/02/22 tabs ondansetron 4 mg disintegrating 4 mg PO Q6-8H PRN naus ea and 05/02/22 tablet vomiting #7 tabs glycerin (adult) 1 supp [place] BID PRN constipati on #25 08/25/22 ea magnesium citrate (Citrate of 150 ml PO BID PRN consti pation 08/25/22 Magnesia oral) #1,500 mL sennosides 8.6 mg-docusate sodium 1 tab-cap PO BEDTIME #14 tabs 08/25/22 50 mg tablet (Senokot-S) polyethylene glycol 3350 17 17 g PO BID #476 grams 11/21 gram/dose oral powder (Miralax) prednisone 20 mg tablet 20 mg PO BID 5 days #10 tabs 02/04/25 valacyclovir 1 gram tablet 1,000 mg PO TID 7 days #21 tabs 02/04/25 Allergies Allergy/AdvReac Type Severity Reaction Status Date / Time cephalexin (From Keflex) Allergy Rash Verified 02/04/25 08:53 droperidol Allergy Anaphylaxis Verified 02/04/25 08:53 gluten Allergy Diarrhea Verified 02/04/25 08:53 ketorolac (From Toradol) Allergy Rash Verified 02/04/25 08:53 Penicillins Allergy Rash Verified 02/04/25 08:53 strawberry Allergy Itching Verified 02/04/25 08:53 Sulfa (Sulfonamide Allergy Rash Verified 02/04/25 08:53 Antibiotics) Review of Systems 2 Review of Systems: Yes all other systems are reviewed and are negative PMFSH Past Medical History Attestation statement: The following information was validated with the patient. Source: old records reviewed and nursing notes reviewed Medical History Hypertension Celiac disease Colitis Left-sided weakness Surgical History History of cholecystectomy Social History Social History Alcohol intake: never Patient Tobacco Use Status: Never used Tobacco Advance Directives: Yes Advance Directives Information Provided: No Advance Directives on File: No Physical Exam ED Exam Exam: Appearance: Alert.? Oriented X3.? No acute distress.? Head: Normocephalic, atraumatic, no step-offs or deformities Eyes: Pupils equal, round and reactive to light.? ENT: Pharynx normal.? Neck: Normal inspection.? Neck supple.? CVS: Normal heart rate and rhythm.? Pulses normal.? Respiratory: No respiratory distress.? Breath sounds normal.? Abdomen: Soft and nontender.? Skin: Skin warm and dry.? Normal skin color.? Normal skin turgor.? + exquisite tenderness to the right flank ( overlying dermatome T10-12) not cossing the midline. No overlying skin changes. Also TTP to flank region on the right. Extremities: No lower extremity edema.? No calf ttp. 5/5 strength to bilateral upper and lower extremities Back: No midline tenderness, no C-spine tenderness, full range of motion, no CVA tenderness bilaterally. No midline pain Neuro: Oriented X 3.? No motor deficit.? No sensory deficit. CN 2-12 intact. No saddle anesthesias. Vital Signs: Vital Signs - 24 hr 02/04/25 08:47 02/04/25 09:35 02/04/25 13:36 Temperature 98.6 F 98.3 F 98.1 F Pulse Rate 87 81 80 Respiratory Rate 16 18 16 Blood Pressure 111/68 111/71 116/73 Pulse Oximetry 96 95 96 Oxygen Delivery Method Room Air Room Air Room Air 02/04/25 16:13 Temperature 98.0 F Pulse Rate 99 Respiratory Rate 18 Blood Pressure 122/72 Pulse Oximetry 92 Oxygen Delivery Method Room Air BMI result Body Mass Index 37.7 vss Course Reevaluation(s) Reevaluation #1: labs w/ no leukocytosis. Chemistry unremarkable. Inflammatory markers +. Will monitor for pain relief. Patient likely PT/CM Sign out to TAYLOR Jernigan Time: 13:15 Reevaluation #2: I received sign-out from my colleague ERIK Mcneill to follow up with CT lumbar spine, and UA findings, and possible PT eval/case management. In summary this is a 54-year-old female with medical history of HTN, celiac disease, colitis, with left-sided weakness uses walker at baseline. Presents to the ED due to 7 days of progressively worsening sharp, burning R sided flank pain with intermittent electrical sensation that is worse with movement. Patient reports she was evaluated at [facility] due to this pain approximately 8 days ago and was prescribed meloxicam, Flexeril and Celebrex without effect on the pain. Patient called her primary care doctor and was told to continue on Flexeril, Celebrex and oxycodone as the meloxicam made her vomit, but was called and was advised to come into the ED for further evaluation. While in the department patient was medicated with 300 mg of gabapentin, a total of 3 mg IV Dilaudid, 40 mg prednisone, and a 1000 mg of valacyclovir from my colleague ERIK Mcneill who is treating for possible shingles that has not developed a rash yet. When I came in to evaluate the patient, who is complaining of nausea, and persistent pain. I then medicated the patient with 4 mg IV Zofran, and 1 g of Tylenol. On physical exam, patient has significant tenderness of the right flank area to percussion however also has tenderness when just lightly touching the area with fingertips assessing sensation, there was no overlying rash present. Labs without leukocytosis/leukopenia, normocytic anemia with a hemoglobin of 11.3, hematocrit of 35.8, no electrolyte abnormalities. CRP is elevated at 2.51. CT lumbar spine reveals mild degenerative changes, with large stool burden within the rectum. UA negative for blood or infection. I discussed possible PT eval/case management for short-term rehab for management of her pain. Patient states she would rather go home at this time, and follow up with her primary care doctor and report back to the ED if her symptoms are worsening, patient is not interested in short-term rehab. I discussed with the patient to discharge home with Valtrex, prednisone, Tylenol, lidocaine patches, and using her oxycodone prescription for breakthrough pain. I counseled patient on CT findings of large stool burden, patient will be discharged home with MiraLax 3 times daily until liquid stool is achieved. I counseled patient on strict return precautions. Patient feels well enough to go home for self-care and is in agreement with the plan. Time: 16:49 Medications Administered Discontinued Medications Generic Name Dose Route Start Last Admin Trade Name Freq PRN Reason Stop Dose Admin Gabapentin 300 mg 02/04/25 10:05 02/04/25 10:19 Gabapentin 300 Mg Capsule PO 02/04/25 10:06 300 mg ONCE ONE Administration Hydromorphone HCl 2 mg 02/04/25 10:05 02/04/25 10:19 Hydromorphone Hcl 2 Mg Tablet PO 02/04/25 10:06 2 mg ONCE ONE Administration Hydromorphone HCl 1 mg 02/04/25 14:40 02/04/25 14:47 Hydromorphone Hcl 1 Mg/Ml Syringe IVPUSH 02/04/25 14:41 1 mg ONCE ONE Administration Protocol Acetaminophen 1,000 mg in 100 mls @ 400 mls/hr 02/04/25 16:26 02/04/25 16:35 Ofirmev IV 02/04/25 16:40 400 mls/hr ONCE ONE Administration Ondansetron HCl 4 mg 02/04/25 16:23 02/04/25 16:35 Ondansetron Hcl 4 Mg/2 Ml Vial IVPUSH 02/04/25 16:24 4 mg ONCE ONE Administration Prednisone 40 mg 02/04/25 10:08 02/04/25 10:18 Prednisone 20 Mg Tablet PO 02/04/25 10:09 40 mg ONCE ONE Administration Valacyclovir HCl 1,000 mg 02/04/25 10:08 02/04/25 10:19 Valacyclovir Hcl 1,000 Mg Tablet PO 02/04/25 10:09 1,000 mg ONCE ONE Administration Medical Decision Making Medical Decision Making MDM Narrative: 54-year-old female presents with right-sided flank pain severe 01/06 describes it as a burning superficial pain. + exquisite tenderness to the right flank ( overlying dermatome T10-12) not cossing the midline. No overlying skin changes. Also TTP to flank region on the right. No midline spine tenderness or saddle anesthesias. History and physical exam concerning for possible early shingles without rash. She does report fatigue and malaise prior to the symptoms concerning for possible prodromal. . I do not suspect acute cord compression or cauda equina. No falls or trauma unlikely fracture dislocation. Plan labs, imaging Differential Diagnosis Differential Diagnoses: The differential diagnosis associated with the presentation includes (History and physical exam concerning for possible early shingles without rash. She does report fatigue and malaise prior to the symptoms concerning for possible prodromal. . I do not suspect acute cord compression or cauda equina. No falls or trauma unlikely fracture dislocation.) Admission/Observation Consideration of admission/observation: Escalation of care including admission/observation considered Lab Data MDM Lab Attestation statement: I reviewed the patient's lab results. 02/04/25 12:48 02/04/25 12:48 Labs: Lab Results 02/04/25 02/04/25 Range/Units 12:48 13:54 WBC 6.0 (4.8-10.8) X10*3/uL RBC 4.18 L (4.20-5.50) X10*6/uL Hgb 11.3 L (12.0-16.0) g/dl Hct 35.8 L (37.0-47.0) % MCV 85.6 (80.0-98.0) fL MCH 27.0 (27.0-33.0) pg MCHC 31.6 (31.0-35.0) g/dl RDW 18.9 H (11.0-16.0) % Plt Count 186 D (160-400) X10*3/uL MPV 10.0 (9.4-12.3) fL Immature Gran % (Auto) 0.3 (0.0-0.4) % Neut % (Auto) 80.6 H (45-73) % Lymph % (Auto) 11.3 L (20-40) % [place] % (Auto) 5.3 (2-11) % Eos % (Auto) 2.2 (0-4) % Baso % (Auto) 0.3 (0-2) % Lymph # (Auto) 0.7 L (1.2-4.9) X10*3/uL [place] # (Auto) 0.3 (0.1-1.2) X10*3/uL Eos # (Auto) 0.1 (0.0-0.4) X10*3/uL Baso # (Auto) 0.0 (0.0-0.2) X10*3/uL Abs Immat Gran (auto) 0.02 (0.00-0.03) X10*3/uL Absolute Neuts (auto) 4.9 (2.0-8.3) x10*3/uL Absolute Nucleated RBC 0.000 (0.0-0.012) X10*3/uL Nucleated RBC % (auto) 0.0 (0.0-0.2) /100WBC ESR 18 (0-20) MM/HR Sodium 139 (135-145) mmol/L Potassium 4.2 (3.3-5.1) mmol/L Chloride 107 (96-108) mmol/L Carbon Dioxide 24 (22-29) mmol/L Anion Gap 12 (12-20) BUN 16 (9-16) mg/dL Creatinine 1.05 (0.5-1.4) mg/dL Estim Creat Clear Calc 51.1 Estimated GFR 55 Random Glucose 96 (60-115) mg/dL Calcium 9.3 (8.4-10.2) mg/dL Total Bilirubin 0.1 (0.0-1.0) mg/dL AST 22 (5-31) U/L ALT 11 (0-31) U/L Alkaline Phosphatase 90 (39-117) U/L C-Reactive Protein 2.51 H (< or = 0.50) mg/dL Total Protein 6.6 (6.5-8.0) g/dL Albumin 4.1 (3.5-5.0) g/dL Urine Color Yellow Urine Appearance Clear Urine pH 6.5 (5.0-9.0) Ur Specific [place] <= 1.005 (1.005-1.025) Urine Protein Negative (Neg-Trace) mg/dL Urine Glucose (UA) Negative (Negative) mg/dL Urine Ketones Negative (Negative) mg/dL Urine Blood Negative (Negative) Urine Nitrite Negative (Negative) Ur Leukocyte Esterase Negative (Negative) Independent Interpretation I performed an independent interpretation of an: CT Scan Radiology Impression Discussion of test interpretation with radiology: I have reviewed the radiologist's reading. External Record Review External record reviewed: Inpatient record, Office record, Outpatient record, Prior outpatient labs, Prior outpatient radiology, Primary care record and Outside ED record Chronic Conditions Patient?s care impacted by: Other (see hpi ) Critical Care Time Critical Care Time Critical Care Time: No Discharge Plan Discharge Clinical Impression: Shingles, Acute right flank pain Patient Disposition: Home, Self-Care Additional Instructions: You were evaluated in the ED today due to right-sided back pain that is radiating into the front of the right hip. Your blood work was reassuring as there was no significant elevation or decrease in white blood cell count indicative of systemic infection. Your inflammatory marker called CRP was elevated at 2.5. The CT of your lumbar spine reveals osteoarthritic changes of the lumbar spine, and a very large amount of stool within the rectum. Your pain may be due to early shingles infection where rash has not erupted yet. You are being discharged with a 7 day course of valacyclovir that you will take 3 times daily, 40 mg of prednisone for 5 days, and I encourage you to take 500 mg of Tylenol every 6 hours, and use your home prescription of oxycodone for breakthrough pain when pain is severe. Your abdominal pain is most likely due to constipation, you are being prescribed MiraLax that you will take 3 times daily and mixed in 8 oz of water until you have liquid stool. Please follow up with your primary care doctor to ensure resolution of your symptoms. Please return to the ED if you have worsening right-sided back pain, unable to have a bowel movement, not passing gas from the rectum, or any new/worsening/concerning symptoms Prescriptions: New valacyclovir 1 gram tablet 1,000 mg PO TID 7 Days Qty: 21 0RF prednisone 20 mg tablet 20 mg PO BID 5 Days Qty: 10 0RF polyethylene glycol 3350 [Miralax] 17 gram/dose powder 17 g PO BID Qty: 476 0RF Rx Instructions: Take this medication 3 times daily by mixing 17g powder in 8 oz of water until you achieved liquid stool. No Action acetaminophen [Tylenol Extra Strength] 500 mg tablet 1,000 mg PO QID PRN (Reason: fever or pain) Qty: 14 0RF ibuprofen 400 mg tablet 400 mg PO Q6H PRN (Reason: pain) Qty: 14 0RF ferrous sulfate 325 mg (65 mg iron) tablet 325 mg PO DAILY Qty: 30 0RF benzonatate 200 mg capsule 200 mg PO TID PRN (Reason: cough) Qty: 30 0RF doxycycline hyclate 100 mg tablet 100 mg PO BID Qty: 20 0RF prednisone 20 mg tablet 40 mg PO DAILY Qty: 10 0RF nitrofurantoin monohyd/m-cryst [Macrobid] 100 mg capsule 100 mg PO BID 7 Days Qty: 14 0RF Rx Instructions: must administer with a meal/food ondansetron 4 mg tablet,disintegrating 4 mg PO Q8H Qty: 14 0RF cyclobenzaprine 10 mg tablet 10 mg PO TID PRN (Reason: muscle spasm) Qty: 14 0RF lidocaine 5 % adhesive patch,medicated 1 patch topical DAILY Qty: 30 0RF Rx Instructions: leave on most painful area for up to 12 hrs cyclobenzaprine 5 mg tablet 5 mg PO TID PRN (Reason: muscle spasm) Qty: 10 0RF ondansetron 4 mg tablet,disintegrating 4 mg PO Q6-8H PRN (Reason: nausea and vomiting) Qty: 7 0RF magnesium citrate [Citrate of Magnesia] Solution 150 ml PO BID PRN (Reason: constipation) Qty: 1500 0RF sennosides-docusate sodium [Senokot-S] 8.6-50 mg tablet 1 tab-cap PO BEDTIME Qty: 14 0RF glycerin (adult) Suppository 1 supp [place] BID PRN (Reason: constipation) Qty: 25 0RF Print Language: Ukrainian
--- NOTE | 2025-02-04 10:15 | PC.NURSE ---
patient requested to use the bathroom, states she doesnt walk. patient states she needs wheelchair. patient at baseline states she can walk. patient was able to get herself up and out of bed and take steps to wheelchair. patient was able to use the bathroom and was able to get herself back in bed.
[2025-02-04 12:53] LABS: MANUAL DIFF FLAG NO
[2025-02-04 12:56] LABS: Hematocrit 35.8 % (37.0-47.0); Hemoglobin 11.3 g/dl (12.0-16.0); Imm Gran Abs Auto 0.02 X10*3/uL (0.00-0.03); Imm Gran Pct Auto 0.3 % (0.0-0.4); Lymphocytes Absolute Auto 0.7 X10*3/uL (1.2-4.9); Mean Corpuscular HGB Conc 31.6 g/dl (31.0-35.0); Mean Corpuscular Hemoglobin 27.0 pg (27.0-33.0); Mean Corpuscular Volume 85.6 fL (80.0-98.0); NRBC Abs Auto 0.000 X10*3/uL (0.0-0.012); NRBC Pct Auto 0.0 /100WBC (0.0-0.2); Platelet Count 186 X10*3/uL (160-400); Red Blood Count 4.18 X10*6/uL (4.20-5.50); White Blood Count 6.0 X10*3/uL (4.8-10.8)
[2025-02-04 13:08] LABS: Alanine Aminotransferase 11 U/L (0-31); Albumin Level 4.1 g/dL (3.5-5.0); Alkaline Phosphatase 90 U/L (39-117); Anion Gap 12 (12-20); Aspartate Amino Transferase 22 U/L (5-31); Blood Urea Nitrogen 16 mg/dL (9-16); Calcium 9.3 mg/dL (8.4-10.2); Carbon Dioxide 24 mmol/L (22-29); Chloride 107 mmol/L (96-108); Creatinine Clr Calc Pharmacy 51.1; Estimated Glomerular Filt Rate 55; Potassium 4.2 mmol/L (3.3-5.1); Sodium 139 mmol/L (135-145); Total Protein 6.6 g/dL (6.5-8.0)
[2025-02-04 13:36] VITALS: BP 116/73; PULSE 80; RESP 16; TEMP 36.7; O2SAT 96
[2025-02-04 13:51] LABS: Erythrocyte Sedimentation Rate 18 MM/HR (0-20)
[2025-02-04 14:01] LABS: Appearance Urine Clear; Glucose Urine UA Negative (Negative); PH 6.5 (5.0-9.0); Specific Gravity - Urine <= 1.005 (1.005-1.025)
[2025-02-04 16:13] VITALS: BP 122/72; PULSE 99; RESP 18; TEMP 36.7; O2SAT 92
[2025-02-04 17:32] VITALS: BP 122/72; PULSE 99; RESP 18; TEMP 36.7; O2SAT 92
== END 2025-02-04 18:00 | disposition home or self-care (01) ==
PROVIDERS: Physician Assistant; Emergency Provider Emergency Medicine Emergency Medical Services; PCP Internal Medicine
DX: B02.9 Zoster without complications (principal); R10.A1 Flank pain, right side; I10 Essential (primary) hypertension
CPT/HCPCS: 36415; 72131; 80053; 81003; 85025; 85652; 86140; 96365; 96375; 99284; J0131; J1171; J2405

== ENCOUNTER → 2025-02-04 10:05 | Outpatient (BNV) | payer OTHER, SELFPAY | PROVIDERS: Emergency Provider Emergency Medicine Emergency Medical Services; PCP Internal Medicine; Visit Provider Radiology Vascular & Interventional Radiology | DX: M51.360 Other intervertebral disc degeneration, lumbar region with discogenic back pain only (principal) | CPT/HCPCS: 72131 ==